=== PATIENT | female | born 1960 | race African-American/Black ===

== ENCOUNTER 2016-10-24 11:43 | Emergency (ER) | payer SELFPAY ==
[2016-10-24 11:58] VITALS: BP 148/78
--- NOTE | 2016-10-24 12:39 | RAD ---
INDICATION: Right hand pain. TECHNIQUE: 4 views of the right hand were obtained. FINDINGS: There is diffuse soft tissue swelling. No significant focal osseous abnormality or fracture is seen. Joint spaces appear maintained. IMPRESSION: DIFFUSE SOFT TISSUE SWELLING NO SIGNIFICANT FOCAL OSSEOUS ABNORMALITY IS SEEN.
--- NOTE | 2016-10-24 13:03 | UC ---
Hand/Wrist HPI - HPI Summary HPI Summary: 5 DAYS OF SEVERE PAIN AND SWELLING RIGHT HAND. NO TRAUMA OR INJURY. NO BREAK IN THE SKIN. NO FEVER. NO NUMBNESS OR TINGLING. - History Of Current Complaint Chief Complaint: UCUpperExtremity Stated Complaint: HAND PAIN Time Seen by Provider: 10/24/16 12:39 Hx Obtained From: Patient, Family/Clay Grinder - Onset/Duration: Gradual Onset, Lasting Days, Still Present Severity Initially: Moderate Severity Currently: Severe Pain Intensity: 10 Pain Scale Used: 0-10 Numeric Character Of Pain: Aching Aggravating Factor(s): Movement Alleviating: Rest Associated Signs And Symptoms: Positive: Swelling Related History: Dominant Hand Right - Allergies/Home Medications Allergies/Adverse Reactions: Allergies Allergy/AdvReac Type Severity Reaction Status Date / Time No Known Allergies Allergy Verified 10/24/16 11:58 Home Medications: Home Medications Chlorthalidone TAB* [Hygroton TAB*] 25 mg PO DAILY 10/24/16 [History Confirmed 10/24/16] Furosemide TAB* [Lasix TAB*] 40 mg PO DAILY 10/24/16 [History Confirmed 10/24/16 ] Insulin GLARGINE(*) [Lantus(*)] 0 units SUBCUT ONCE 10/24/16 [History Confirmed 10/24/16] Insulin LISPRO* [HumaLOG*] 0 units SUBCUT DIRECTED 10/24/16 [History Confirmed 10/24/16] Rosuvastatin Calcium [Crestor] 40 mg PO 10/24/16 [History] Sodium Bicarbonate (Antacid) [Sodium Bicarbonate] 325 mg PO 10/24/16 [History] Warfarin TAB(*) [Coumadin TAB(*)] 5 mg PO DAILY 10/24/16 [History Confirmed 10/02] PMH/Surg Hx/FS Hx/Imm Hx Endocrine History: Diabetes Cardiovascular History: Hypertension Respiratory History: Pulmonary Embolism - ON COUMADIN Other History Of: Anticoagulant Therapy - for Hx PE - Surgical History Surgical History: Yes Surgery Procedure, Year, and Place: foot. leg - Family History Known Family History: Positive: Cardiac Disease, Hypertension, Diabetes Family History: NO FAMILY H/O GOUT OR RA - Social History Alcohol Use: Rare Substance Use Type: None Smoking Status (MU): Former Smoker Review of Systems Skin: Negative Respiratory: Negative Cardiovascular: Negative Gastrointestinal: Negative Musculoskeletal: Arthralgia, Decreased ROM, Edema All Other Systems Reviewed And Are Negative: Yes Physical Exam Triage Information Reviewed: Yes Appearance: Well-Appearing, Well-Nourished, Pain Distress - MODERATE Vital Signs: Initial Vital Signs Temp 98.9 F 10/24/16 11:53 Pulse 77 10/24/16 11:53 Resp 18 10/24/16 11:53 BP 148/78 10/24/16 11:53 Pulse Ox 100 10/24/16 11:53 Vital Signs Reviewed: Yes Eyes: Positive: Conjunctiva Clear ENT: Positive: Hearing grossly normal Neck: Positive: Supple Respiratory: Positive: No respiratory distress, No accessory muscle use Cardiovascular: Positive: Pulses Normal Abdomen Description: Positive: Soft Musculoskeletal: Positive: ROM Limited @ - RIGHT HAND - MCP AND IP JOINTS IN ALL FINGERS, Edema @ - RIGHT HAND, Other: - TTP MCP AND IP JOINTS FINGERS 2-4. TTP MCP 5TH FINGER. THUMB NOT TENDER. WARM TO TOUCH. NO REDNESS Neurological: Positive: Alert Psychological: Positive: Normal Response To Family, Age Appropriate Behavior Skin: Negative: rashes Diagnostics - Radiology RIGHT HAND XRAY Xray Interpretation: Positive (See Comments) - DIFFUSE SOFT TISSUE SWELLING Radiology Interpretation Completed By: Radiologist Hand/Wrist Course/Dx - Differential Dx/Diagnosis Provider Diagnoses: RIGHT HAND ARTHRITIC CONDITION Discharge - Discharge Plan Condition: Stable Disposition: HOME Prescriptions: Acetaminop/Codeine 30 MG TAB* [Tylenol/Codeine 30 MG TAB*] 1 - 2 tab PO Q6H PRN #30 tab MDD 8 PRN Reason: Pain predniSONE TAB* [Deltasone TAB*] 40 mg PO DAILY #10 tab Patient Education Materials: Arthritis (ED) Referrals: Chantale Adan MD [Medical Doctor] - 1 Week Jens Bertrand MD [Medical Doctor] - 1 Week Additional Instructions: NO ACUTE ABNORMALITY ON XRAY TODAY. YOU APPEAR TO HAVE AN ARTHRITIC CONDITION. STEROIDS SHOULD HELP BUT WILL MAKE YOUR SUGARS GO UP AND MAY INTERFERE WITH YOUR COUMADIN. BE SURE TO MONITOR YOUR GLUCOSE AND WATCH YOUR DIET. CHECK YOUR INR AT HOME MORE FREQUENTLY WHILE ON THIS MEDICATION. FOLLOW-UP WITH ORTHO OR RHEUMATOLOGY FOR FURTHER EVALUATION OF YOUR CONDITION WITHIN A WEEK. YE WRAP NEEDED FOR COMPRESSION AND SUPPORT. CALL THE NUMBER BELOW FOR ASSISTANCE IN ESTABLISHING WITH A PCP An additional resource available to assist in finding the appropriate physician for your health care needs is the Physician Referral Center ([facility]). You may contact them by calling [phone].
== END 2016-10-24 13:26 | disposition home or self-care (01) ==
LOC: UCEAST 11:43
DX: M19.041 Primary osteoarthritis, right hand (principal)
CPT/HCPCS: 99202; G0463

== ENCOUNTER 2017-01-13 10:39 | Day surgery (SDC) | payer OTHER ==
[~2017-01-13 10:39] MED LIST: Acetaminophen TAB* 325 MG PO PRN; Buffered Lidocaine 0.9% SYRIN* 5 ML/SYR SYRINGE INTRADERM ONE
[2017-01-13 11:55] VITALS: BP 138/69
[2017-01-13] MEDS ORDERED: Midazolam* 1 MG/ML 5 ML VIAL (5 MG) ONE (12:30)
[2017-01-13] MEDS ORDERED: fentaNYL* 50 MCG/ML 2 ML VIAL (100 MCG VIAL) ONE (12:30)
[2017-01-13] MEDS ORDERED: Neomycin/Polymy/Dex OPHTH.OIN* 3.5 GM ONE (14:19)
[2017-01-13] MEDS ORDERED: Cyclopentolate 1% OPTH.SOL* 2 ML BTL ONE (14:19)
[2017-01-13] MEDS ORDERED: Tetracaine 0.5% OPTH.SOL 4 ML* 1 DROP BTL ONE (14:19)
[2017-01-13] MEDS ORDERED: Lidocaine 1% MPF* 2 ML VIAL ONE (14:19)
[2017-01-13] MEDS ORDERED: Phenylephrine 2.5% OPTH.SOL* 2 ML BTL ONE (14:19)
[2017-01-13] MEDS ORDERED: Tropicamide 1% OPTH.SOL* BTL ONE (14:19)
[2017-01-13] MEDS ORDERED: Ketorolac 0.5% OPHTH (NF) 0.5 % 5 ML BTL ONE (14:19)
--- NOTE | 2017-01-14 05:13 | OP ---
DATE OF OPERATION: 01/13/17 [facility] DATE OF : 58 SURGEON: Adin Lagunas MD TRAFFIC CHIEF: None. ANESTHESIOLOGIST: Flo Whitaker MD ANESTHESIA: Topical with intravenous sedation. PRE-OP DIAGNOSIS: Cataract right eye with vitreous hemorrhage and hyphema. POST-OP DIAGNOSIS: Cataract right eye with vitreous hemorrhage and hyphema. OPERATIVE PROCEDURE: Phacoemulsification and cataract extraction and hyphema evacuation right eye with posterior chamber intraocular lens implant. COMPLICATIONS: None. ESTIMATED BLOOD LOSS: None. DESCRIPTION OF PROCEDURE: The patient was brought to the operating room and received a small amount of intravenous sedation. A drop of Tetracaine was placed in her right eye. The patient was prepped and draped in the usual sterile fashion for ophthalmic surgery and attention was directed to the right eye where a speculum was placed. A paracentesis was created at the 11 o'clock position and 0.1 cc of 1% preservative-free Lidocaine was injected into the anterior chamber followed by DiscoVisc. The eye was digitally stabilized while a 2.75 mm keratome was used to create a triplanar clear corneal incision at the 9 o'clock position. A continuous curvilinear capsulorrhexis was created using a cystotome and Utrata forceps. This was difficult because there was no red reflex. BSS on a cannula was used to hydrodissect the lens from the capsule. This is also difficult without a red reflex due to the vitreous hemorrhage. Phacoemulsification was performed in a [id number] technique to create four fragments, which were removed. Residual cortical material was removed using irrigation and aspiration. During the case anterior chamber blood that was present was readily evacuated during irrigation aspiration procedures. DisCoVisc was used to inflate the capsular bag and a careful inspection was performed to make sure there is no cortical material left as again it was difficult view with no red reflex and an AUOOTO 19.5 diopter lens was inserted into the capsular bag. DisCoVisc was removed using irrigation and aspiration. BSS on a cannula was used to hydrate the corneal stroma and seal the wound. At the end of the case the pupil was round and the lens was centered. The eye pressure appeared normal and the wound was water tight. There was no blood in the anterior chamber all of the vitreous was filled with blood. The speculum was removed and topical Maxitrol ointment was placed on the surface of the eye. The eye was closed, patched and shielded and the patient was sent to the recovery room in stable condition with postoperative instructions and follow-up appointment given. [id number]/CPS #: [id number] MTDD
== END 2017-01-13 14:20 | disposition home or self-care (01) ==
LOC: OREAST 10:39
PROVIDERS: ATTEND Ophthalmology
DX: E11.36 Type 2 diabetes mellitus with diabetic cataract (principal); H25.011 Cortical age-related cataract, right eye; H21.01 Hyphema, right eye; H43.11 Vitreous hemorrhage, right eye; Z79.4 Long term (current) use of insulin; E78.00 Pure hypercholesterolemia, unspecified; Z86.711 Personal history of pulmonary embolism; Z79.01 Long term (current) use of anticoagulants; M06.9 Rheumatoid arthritis, unspecified; E11.22 Type 2 diabetes mellitus with diabetic chronic kidney disease; I12.9 Hypertensive chronic kidney disease with stage 1 through stage 4 chronic kidney disease, or unspecified chronic kidney disease; N18.9 Chronic kidney disease, unspecified; Z87.891 Personal history of nicotine dependence; D68.59 Other primary thrombophilia
CPT/HCPCS: A9270-GY; J2250; J3010

== ENCOUNTER 2017-02-16 07:17 | Emergency (ER) | payer OTHER ==
[2017-02-16 08:43] LABS: EGFR Non-African American 22.5 (>60)
[2017-02-16 09:03] LABS: ABS Basophils 0.1 10^3/ul (0-0.2); ABS Eosinophils 0.3 10^3/ul (0-0.6); ABS Lymphocytes 1.3 10^3/ul (1.0-4.8); ABS Monocytes 0.6 10^3/ul (0-0.8); ABS Neutrophils 6.1 10^3/ul (1.5-7.7); ABS Nucleated RBC 0.01 10^3/ul; Eosinophil % 3.5 % (0-6); Hematocrit 26 % (35-47); Lymphocyte % 15.1 % (25-47); Mean Corpuscular HGB Conc 31 g/dl (31-36); Mean Corpuscular Hemoglobin 22 pg (27-31); Mean Platelet Volume 7 um3 (7.4-10.4); Nucleated Red Blood Cells % 0.1; Platelet Count 418 10^3/ul (150-450); Red Blood Count 3.61 10^6/ul (4.0-5.4); Red Cell Distribution Width 19 % (10.5-15); White Blood Count 8.4 10^3/ul (3.5-10.8)
[2017-02-16 09:10] LABS: Mean Corpuscular Volume 73 fL (80-97)
--- NOTE | 2017-02-16 09:16 | RAD ---
Indication: Pain and edema. Possible great toe ulcer. Comparison: No relevant prior exams available on the [facility] PACS for comparison. Technique: AP, lateral, and oblique views LEFT foot. Report: Loss of the normal longitudinal arch of the foot. Negative for dislocation. No acute fracture evident. Healed fractures at the second and fifth metatarsals. Ostial lysis at the distal proximal phalanx and middle phalanx. Marked osteophytosis, joint space narrowing, subchondral sclerosis, and subchondral cystic change at the first metatarsal phalangeal joint and mild hallux valgus deformity. Less marked degenerative arthropathy throughout the rest of the [id number]. Soft tissue swelling most prominent at the visualized lower leg, ankle, and great toe. No subcutaneous emphysema or foreign body evident. Peripheral vascular calcifications. Skeletal muscle atrophy. IMPRESSION: Soft tissue swelling without visualized subcutaneous emphysema. Ostial lysis at the fifth toe is age indeterminate. No definitive acute radiographic findings of osteomyelitis. If there is persistent clinical concern consider follow-up MRI or in setting of contraindication to MRI 3 phase bone scan.
[2017-02-16 10:13] VITALS: BP 133/67
--- NOTE | 2017-02-16 12:10 | ED ---
Bryant Mc Tecjoon, scribed for Cory Chavez MD on 02/16/17 at 0821 . Lower Extremity - HPI Summary HPI Summary: This patient is a 56 year old female presenting to [facility] accompanied by with a chief complaint of diabetic ulcers on foot since yesterday. Patient has several calluses on her feet with a pronounced one on her left big toe. Patient states she feels no pain, but also has neuropathy. Symptoms aggravated by nothing. Symptoms alleviated by nothing. Patients skin is very dry. Patient has a hx of diabetes. Her last hemoglobin a1c level was 7. - History of Current Complaint Chief Complaint: EDExtremityLower Stated Complaint: BILATERAL FOOT PROBLEMS Time Seen by Provider: 02/16/17 07:37 Hx Obtained From: Patient Onset/Duration: Days - noticed yesterday Pain Intensity: 0 Pain Scale Used: 0-10 Numeric Timing: Constant Associated Signs And Symptoms: Positive: Negative - pain, Other - calluses on feet Aggravating Factor(s): Nothing Alleviating Factor(s): Nothing - Allergies/Home Medications Allergies/Adverse Reactions: Allergies Allergy/AdvReac Type Severity Reaction Status Date / Time No Known Allergies Allergy Verified 01/13/17 11:43 PMH/Surg Hx/FS Hx/Imm Hx Previously Healthy: No Endocrine/Hematology History: Reports: Hx Anticoagulant Therapy - for Hx PE, coumadin , Hx Diabetes - type 2, Hx Anemia Denies: Hx Thyroid Disease Cardiovascular History: Reports: Hx Embolism - Pulmonary Embolism, Hx Hypercholesterolemia, Hx Hypertension - controlled with meds Denies: Hx Coronary Artery Disease Respiratory History: Reports: Hx Pulmonary Embolism - in the past Denies: Hx Asthma GI History: Denies: Hx Ulcer History: Reports: Other Problems/Disorders - Reports kidney problems Denies: Hx Kidney Stones Musculoskeletal History: Reports: Hx Arthritis - possible RA in hands, Hx Rheumatoid Arthritis Sensory History: Reports: Hx Cataracts - right eye, Hx Contacts or Glasses - glasses for reading, Hx Macular Degeneration, Hx Vision Problem - Retinal hemorrhage Denies: Hx Deafness, Hx Hearing Aid Opthamlomology History: Reports: Hx Cataracts - right eye, Hx Contacts or Glasses - glasses for reading, Hx Macular Degeneration, Hx Vision Problem - Retinal hemorrhage - Surgical History Surgery Procedure, Year, and Place: left foot- Surgery for diabetic ulcer. R leg- medical machinery Hx Anesthesia Reactions: No - Immunization History Date of Tetanus Vaccine: UTD Infectious Disease History: No Infectious Disease History: Denies: Hx Hepatitis, Hx Human Immunodeficiency Virus (HIV), Traveled Outside the [place] in Last 30 Days - Family History Known Family History: Positive: Cardiac Disease, Hypertension, Diabetes Family History: NO FAMILY H/O GOUT OR RA - Social History Lives: Alone Alcohol Use: Rare Hx Substance Use: No Substance Use Type: Reports: None Hx Tobacco Use: Yes Smoking Status (MU): Former Smoker Type: Cigarettes Amount Used/How Often: smoked on and off for 15 years less than 1/2ppd Review of Systems Negative: Fever Musculoskeletal: Negative - foot pain Positive: Other - calluses on left foot All Other Systems Reviewed And Are Negative: Yes Physical Exam - Summary Physical Exam Summary: VITAL SIGNS: Reviewed. GENERAL: Patient is a well developed and nourished __(M/F)__ who is lying comfortable in the stretcher. Patient is not in any acute respiratory distress. HEAD AND FACE: Normocephalic EYES: PERRLA, EOMI x 2. EARS: Hearing grossly intact. MOUTH: Oropharynx within normal limits. NECK: Supple, trachea is midline, no adenopathy, no JVD, no carotid bruit. CHEST: Symmetric, no tenderness at palpation LUNGS: Clear to auscultation bilaterally. No wheezing or crackles. CVS: Regular rate and rhythm, S1 and S2 present, no murmurs or gallops appreciated. ABDOMEN: Soft, non-tender. Bowel sounds are normal. No abdominal abnormal pulsations. EXTREMITIES: Full ROM in all major joints, no edema. Small abrasion to left big toe. Decrease in sensation secondary to peripheral neuropathy. NEURO: Alert and oriented x 3. No acute neurological deficits. Speech is normal and follows commands. SKIN: Dry and warm Triage Information Reviewed: Yes Vital Signs On Initial Exam: Initial Vitals Temp Pulse Resp BP Pulse Ox 97.9 F 66 20 151/69 100 02/16/17 07:31 02/16/17 07:31 02/16/17 07:31 02/16/17 07:31 02/16/17 07:31 Vital Signs Reviewed: Yes - Maximino Coma Scale Coma Scale Total: 15 Diagnostics - Vital Signs Vital Signs Temp Pulse Resp BP Pulse Ox 02/16/17 07:31 97.9 F 66 20 151/69 100 - Laboratory Lab Results: Lab Results 02/16/17 02/16/17 02/16/17 Range/Units 08:15 08:15 08:15 WBC 8.4 (3.5-10.8) 10^3/ul RBC 3.61 L (4.0-5.4) 10^6/ul Hgb 8.0 L (12.0-16.0) g/dl Hct 26 L (35-47) % MCV 73 L (80-97) fL MCH 22 L (27-31) pg MCHC 31 (31-36) g/dl RDW 19 H (10.5-15) % Plt Count 418 (150-450) 10^3/ul MPV 7 L (7.4-10.4) um3 Neut % (Auto) 73.0 (38-83) % Lymph % (Auto) 15.1 L (25-47) % [place] % (Auto) 7.6 (1-9) % Eos % (Auto) 3.5 (0-6) % Baso % (Auto) 0.8 (0-2) % Absolute Neuts (auto) 6.1 (1.5-7.7) 10^3/ul Absolute Lymphs (auto) 1.3 (1.0-4.8) 10^3/ul Absolute Monos (auto) 0.6 (0-0.8) 10^3/ul Absolute Eos (auto) 0.3 (0-0.6) 10^3/ul Absolute Basos (auto) 0.1 (0-0.2) 10^3/ul Absolute Nucleated RBC 0.01 10^3/ul Nucleated RBC % 0.1 ESR 120 H (0-30) mm/Hr Sodium 136 (133-145) mmol/L Potassium 5.1 H (3.5-5.0) mmol/L Chloride 106 (101-111) mmol/L Carbon Dioxide 22 (22-32) mmol/L Anion Gap 8 (2-11) mmol/L BUN 38 H (6-24) mg/dL Creatinine 2.24 H (0.51-0.95) mg/dL Est GFR ( Amer) 29.0 (>60) Est GFR (Non-Af Amer) 22.5 (>60) BUN/Creatinine Ratio 17.0 (8-20) Glucose 90 (70-100) mg/dL Lactic Acid 0.8 (0.5-2.0) mmol/L Calcium 9.6 (8.6-10.3) mg/dL Total Bilirubin 0.30 (0.2-1.0) mg/dL AST 17 (13-39) U/L ALT 9 (7-52) U/L Alkaline Phosphatase 163 H (34-104) U/L C-Reactive Protein 48.66 H (< 5.00) mg/L Total Protein 7.7 (6.4-8.9) g/dL Albumin 3.5 (3.2-5.2) g/dL Globulin 4.2 H (2-4) g/dL Albumin/Globulin Ratio 0.8 L (1-3) Result Diagrams: 02/16/17 08:15 02/16/17 08:15 Lab Statement: Any lab studies that have been ordered have been reviewed, and results considered in the medical decision making process. - Radiology XR Foot Xray Interpretation: Positive (See Comments) - IMPRESSION: Soft tissue swelling without visualized subcutaneous emphysema. Ostial lysis at the fifth toe is age indeterminate. No definitive acute radiographic findings of osteomyelitis. If there is persistent clinical concern consider follow-up MRI or in setting of contraindication to MRI 3 phase bone scan. ED physician has reviewed this radiology report. Radiology Interpretation Completed By: Radiologist Lower Extremity Course/Dx - Course Course Of Treatment: This patient is a 56 year old female presenting to [facility] accompanied by with a chief complaint of diabetic ulcers on foot since yesterday. Patient has several calluses on her feet with a pronounced one on her left big toe. Patient states she feels no pain, but also has neuropathy. Symptoms aggravated by nothing. Symptoms alleviated by nothing. Patients skin is very dry. Patient has a hx of diabetes. Her last hemoglobin a1c level was 7. XR Foot reveals, per radiologist, IMPRESSION: Soft tissue swelling without visualized subcutaneous emphysema. Ostial lysis at the fifth toe is age indeterminate. No definitive acute radiographic findings of osteomyelitis. If there is persistent clinical concern consider follow-up MRI or in setting of contraindication to MRI 3 phase bone scan. ED physician has reviewed this radiology report. Bloodwork Obtained and found to be w/o a significant abnormality except for chronic anemia and chronic renal failure. She was placed in keflex and bacitracin as prophylaxis of infection. She was given a referral for a PCP. Patient will be discharged with a diagnosis of left big toe abrasion and diabetic neuropathy. The patient was given a perscription for Keflex. The patient is advised to follow up with PCP and user interface artist in 3 days. The patient is agreeable with this plan. - Diagnoses Differential Diagnosis/HQI/PQRI: Positive: Bursitis, Cellulitis, Gout, Osteomyelitis Provider Diagnoses: Left big toe abrasion, Diabetic neuropathy Discharge - Discharge Plan Condition: Stable Disposition: HOME Prescriptions: Cephalexin CAP* [Keflex CAP*] 500 mg PO QID #40 cap Patient Education Materials: Diabetic Peripheral Neuropathy (ED) Referrals: No Primary Care Phys,NOPCP [Primary Care Provider] - Additional Instructions: The patient is advised to follow up with PCP and user interface artist in 3 days. Take Keflex as directed. The patient is agreeable with this plan. Physician Referral Center at [facility] Kierra Cunningham Physician Air Traffic Systems Technician or [phone] E-mail address: [email or web address] The documentation as recorded by the Bryant churchill Tecjoon accurately reflects the service I personally performed and the decisions made by Scott mcclellan Walter, MD.
== END 2017-02-16 10:12 | disposition home or self-care (01) ==
LOC: ED 07:17
DX: S90.412A Abrasion, left great toe, initial encounter (principal); E11.40 Type 2 diabetes mellitus with diabetic neuropathy, unspecified; Z79.01 Long term (current) use of anticoagulants; X58.XXXA Exposure to other specified factors, initial encounter; Y92.9 Unspecified place or not applicable; Z87.891 Personal history of nicotine dependence
CPT/HCPCS: 36415; 80053; 83605; 85025; 85652; 86140; 99282

== ENCOUNTER 2017-03-27 16:59 | Observation (INO) | payer OTHER ==
[2017-03-27 19:08] LABS: ABS Basophils 0.1 10^3/ul (0-0.2); ABS Eosinophils 0.3 10^3/ul (0-0.6); ABS Lymphocytes 1.3 10^3/ul (1.0-4.8); ABS Monocytes 0.7 10^3/ul (0-0.8); ABS Neutrophils 6.9 10^3/ul (1.5-7.7); ABS Nucleated RBC 0 10^3/ul; Hematocrit 22 % (35-47); Hemoglobin 6.7 g/dl (12.0-16.0); INR 3.81 (0.77-1.02); Lymphocyte % 14.3 % (25-47); Mean Corpuscular HGB Conc 30 g/dl (31-36); Mean Corpuscular Hemoglobin 22 pg (27-31); Mean Corpuscular Volume 74 fL (80-97); Mean Platelet Volume 7 um3 (7.4-10.4); Nucleated Red Blood Cells % 0.1; Platelet Count 340 10^3/ul (150-450); Red Blood Count 2.99 10^6/ul (4.0-5.4); Red Cell Distribution Width 20 % (10.5-15); White Blood Count 9.3 10^3/ul (3.5-10.8)
[2017-03-27 19:20] LABS: EGFR Non-African American 23.7 (>60)
--- NOTE | 2017-03-27 20:43 | ED ---
Israel Mc Jennifer, scribed for Harshad Pratt MD on 03/27/17 at 1824 . Complex/Multi-Sys Presentation - HPI Summary HPI Summary: The patient is a 57 year old female who was sent to the ED by her PCP for low HGB today. She explains that her HGB has been steadily decreasing over the past 3 months. She additionally complains of a little shortness of breath and loss of appetite. The patient denies an upset stomach, dizziness, vomiting, heart burn, belching, burping, bloody stools. - History Of Current Complaint Chief Complaint: EDGeneral Time Seen by Provider: 03/27/17 18:13 Hx Obtained From: Patient Onset/Duration: Still Present Timing: Constant Severity Currently: Mild Severity Initially: Mild Associated Signs And Symptoms: Positive: Other - shortness of breath, loss of appetite. NEGATIVE: upset stomach, dizziness, vomiting, heart burn, belching, burping, bloody stools - Allergies/Home Medications Allergies/Adverse Reactions: Allergies Allergy/AdvReac Type Severity Reaction Status Date / Time No Known Allergies Allergy Verified 01/13/17 11:43 PMH/Surg Hx/FS Hx/Imm Hx Endocrine/Hematology History: Reports: Hx Anticoagulant Therapy - for Hx PE, coumadin , Hx Diabetes - type 2, Hx Anemia Denies: Hx Thyroid Disease Cardiovascular History: Reports: Hx Embolism - Pulmonary Embolism, Hx Hypercholesterolemia, Hx Hypertension - controlled with meds Denies: Hx Coronary Artery Disease Respiratory History: Reports: Hx Pulmonary Embolism - in the past Denies: Hx Asthma GI History: Denies: Hx Ulcer History: Reports: Other Problems/Disorders - Reports kidney problems Denies: Hx Kidney Stones Musculoskeletal History: Reports: Hx Arthritis - possible RA in hands, Hx Rheumatoid Arthritis Sensory History: Reports: Hx Cataracts - right eye, Hx Contacts or Glasses - glasses for reading, Hx Macular Degeneration, Hx Vision Problem - Retinal hemorrhage Denies: Hx Deafness, Hx Hearing Aid Opthamlomology History: Reports: Hx Cataracts - right eye, Hx Contacts or Glasses - glasses for reading, Hx Macular Degeneration, Hx Vision Problem - Retinal hemorrhage EENT History: Denies: Hx Deafness - Surgical History Surgery Procedure, Year, and Place: left foot- Surgery for diabetic ulcer. R leg- medical machinery Hx Anesthesia Reactions: No - Immunization History Date of Tetanus Vaccine: UTD Infectious Disease History: No Infectious Disease History: Denies: Hx Hepatitis, Hx Human Immunodeficiency Virus (HIV), Traveled Outside the US in Last 30 Days - Family History Known Family History: Positive: Cardiac Disease, Hypertension, Diabetes Family History: NO FAMILY H/O GOUT OR RA - Social History Alcohol Use: Rare Hx Substance Use: No Substance Use Type: Reports: None Hx Tobacco Use: Yes Smoking Status (MU): Former Smoker Type: Cigarettes Amount Used/How Often: smoked on and off for 15 years less than 1/2ppd Review of Systems Positive: Other - Low HGB, loss of appetite ENT: Negative - burping, belching Negative: Other - heart burn Positive: Shortness Of Breath Negative: Vomiting, Other - Upset stomach Genitourinary: Negative - bloody stools Neurological: Negative - dizziness All Other Systems Reviewed And Are Negative: Yes Physical Exam - Summary Physical Exam Summary: Appearance: Morbidly obese. Skin: Warm, Dry, No rash. Skin with multiple healed ulcers on feet Eyes: Pail conjuctiva, PERRL, EOMI, sclera anicteric ENT: Normal Neck: Supple, nontender Respiratory: Clear to auscultation Cardiovascular: S1, S2, no murmur, no rub, no gallop Abdomen: Soft, nontender, no organomegaly Bowel sounds: Present Musculoskeletal: Normal, Strength/ROM Intact, no edema, pulses symmetrical Extremities: with what appear to be charcot joints in feet, they are all deformed. Neurological: Normal, A&Ox3, cranial nerves II-XII WNL, follows commands, gait not tested, sensation intact to pin and light touch Psychiatric: affect normal, behavior appropriate, dressed appropriately, judgment intact Triage Information Reviewed: Yes Vital Signs On Initial Exam: Initial Vitals Temp Pulse Resp BP Pulse Ox 98.2 F 88 20 153/102 99 03/27/17 17:00 03/27/17 17:00 03/27/17 17:00 03/27/17 17:00 03/27/17 17:00 Vital Signs Reviewed: Yes Diagnostics - Vital Signs Vital Signs Temp Pulse Resp BP Pulse Ox 03/27/17 17:00 98.2 F 88 20 153/102 99 - Laboratory Result Diagrams: 03/27/17 18:40 03/27/17 18:40 Lab Statement: Any lab studies that have been ordered have been reviewed, and results considered in the medical decision making process. Complex Multi-Symp Course/Dx Assessment/Plan: The patient is a 57 year old female who was sent to the ED by her PCP for low HGB today. Bloodwork was obtained. Stool labs were negative. INR was elevated at 3.81. The patient did not want to stay for a transfusion tonight. The patient is diagnosed with slow GI bleeding, iron deficiency, and anemia. The patient will be admitted to [facility]. - Diagnoses Provider Diagnoses: slow GI bleeding, Iron deficiency, Anemia - Physician Notifications Discussed Care Of Patient With: Roseline Rahman Time Discussed With Above Provider: 20:36 Instructed by Provider To: Admit As Inpatient Discharge - Discharge Plan Condition: Good Disposition: ADMITTED TO [facility] Referrals: Deborah Pastor MD [Primary Care Provider] - Additional Instructions: RETURN TO THE EMERGENCY DEPARTMENT FOR CHANGING OR WORSENING SYMPTOMS. The documentation as recorded by the Israel churchill Jennifer accurately reflects the service I personally performed and the decisions made by me, Harshad Pratt MD.
[2017-03-27] MEDS ORDERED: Dextrose 50% Syringe 50 ML* 25 GM/50 ML SYRINGE IV PUSH PRN (21:34)
[2017-03-27] MEDS: Insulin GLARGINE(*) 1 UNITS UNIT SUBCUT SCH (22:39)
[2017-03-27] MEDS: Omeprazole CAP* 20 MG PO SCH (22:40)
[2017-03-28 07:06] LABS: INR 3.56 (0.77-1.02)
[2017-03-28 07:09] LABS: Hematocrit 21 % (35-47); Hemoglobin 6.7 g/dl (12.0-16.0); Mean Corpuscular HGB Conc 32 g/dl (31-36); Mean Corpuscular Hemoglobin 24 pg (27-31); Mean Corpuscular Volume 75 fL (80-97); Mean Platelet Volume 7 um3 (7.4-10.4); Platelet Count 366 10^3/ul (150-450); Red Blood Count 2.86 10^6/ul (4.0-5.4); Red Cell Distribution Width 20 % (10.5-15); White Blood Count 8.9 10^3/ul (3.5-10.8)
[2017-03-28] MEDS ORDERED: Phytonadione Oral Solution* 5 MG/25 ML UDC PO ONE (07:27)
--- NOTE | 2017-03-28 07:31 | HP ---
CC: Dr. Pastor * HISTORY AND PHYSICAL: DATE OF ADMISSION: 03/27/17 PRIMARY CARE PROVIDER: Dr. Pastor CHIEF COMPLAINT: Low H and H. HISTORY OF PRESENT ILLNESS: Ms. Jon is a 57-year-old female who has a history of stage 3 chronic kidney disease, type 2 diabetes, hyperlipidemia, history of hypercoagulable state, and recurrent PEs, on Coumadin therapy, and hypertension, who presents to the emergency room with complaints of reduced H and H. The patient states that she met with Dr. Pastor today for preop evaluation prior to eye surgery. In reviewing the records, Dr. Pastor recognized that the patient's H and H had been falling. Blood work was obtained on the day of admission and revealed her hemoglobin to be only around 6.5. The patient was referred to the emergency room for evaluation. The patient states that she actually feels quite fine. She does note that she has had some intermittent nosebleeds recently. She states that her INR was elevated recently. She was informed that the INR could be up due to change in diet as the patient has been stressed, as her is hospitalized and is very ill and contemplating hospice sign on. The patient denies any black stool. She denies any bright red blood per rectum. She denies any lightheadedness, chest pain or shortness of breath; however, does note that her breathing feels slightly different if she is rushing around. She denies any abdominal pain, nausea, or vomiting. The patient states chronically she is anemic. She states that she does not recall the last time that her hemoglobin was greater than 10. PAST MEDICAL HISTORY: 1. Type 2 diabetes. 2. Hyperlipidemia. 3. OA. 4. History of hypercoagulable state (this is reported by her primary care provider) with recurrent pulmonary emboli. 5. Hypertension. 6. Chronic kidney disease - stage 3. 7. Chronic anemia. PAST SURGICAL HISTORY: 1. Right cataract extraction. 2. Right ankle surgery. 3. Left foot surgery for diabetic ulcer. MEDICATIONS: 1. Labetalol 200 mg p.o. b.i.d. 2. Levemir 20 units subcutaneous q.h.s. 3. Ferrous gluconate 325 mg p.o. t.i.d. 4. Vitamin D 2000 units p.o. daily. 5. Chlorthalidone 50 mg p.o. daily. 6. Lasix 20 mg p.o. daily. 7. Lispro via sliding scale subcutaneous a.c. 8. Sodium bicarbonate 325 mg p.o. b.i.d. 9. Crestor 20 mg p.o. daily. 10. Coumadin 7.5 mg p.o. daily. 11. Trulicity 0.75 mg subcutaneous q. Thursday. ALLERGIES: No known drug allergies. FAMILY HISTORY: Mom at the age of 65. She had a history of coronary disease. Dad is from cancer, though the patient states that she did not know him or his health. SOCIAL HISTORY: The patient is a nonsmoker. She drinks alcohol on occasions. 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 She is . She has no children. She indicates that her nephew, Flakito Jon, would be her surrogate decision maker. REVIEW OF SYSTEMS: A complete 11-system review of systems was obtained. Pertinent positives and negatives are as per HPI. In addition, the patient states her appetite has been poor recently due to the stress of her being severely ill. She does also admit to chronic right lower extremity edema. Otherwise the review of systems is negative. PHYSICAL EXAMINATION GENERAL: The patient is a well-developed, middle-aged obese female, sitting on the edge of the bed, in no acute distress. VITAL SIGNS: Blood pressure 124/51, pulse 74, respirations 19, temp 98.2. HEENT: Pupils are equal and round. Extraocular muscles are intact. Oropharynx is clear. Oral mucosa is moist. The patient wears dentures. There is no submandibular, cervical, or supraclavicular adenopathy. Thyroid is not enlarged. No thyroid nodules noted. PULMONARY: Lungs are clear to auscultation bilaterally. CARDIAC: Normal S1, S2. Regular rate and rhythm. Three are no murmurs. There is 1 to 2+ right lower extremity pitting edema. ABDOMEN: Bowel sounds are present. Abdomen is obese, soft, nontender, and nondistended. MUSCULOSKELETAL: There is no cyanosis or clubbing of the digits. There is full active range of motion of all 4 extremities. SKIN: Warm and dry. There are no rashes. NEUROLOGIC: Cranial nerves II through XII are grossly intact. Sensation is intact to light touch throughout. Strength is 5/5 and symmetric in both upper and lower extremities bilaterally. PSYCH: The patient is awake, alert, and oriented x3. Affect appears appropriate. DIAGNOSTIC STUDIES/LAB DATA: WBC 9.3, hemoglobin 6.7, hematocrit 22, MCV 74, RDW 20, platelets 340. INR 3.81. Sodium 138, potassium 4.7, chloride 107, CO2 of 24, BUN 43, creatinine 2.14. Glucose 150, calcium 9.1, iron 29, TIBC 391, percent iron saturation 7, ferritin 33.2. Bilirubin 0.3, AST 13, ALT 8, alk phos 112. Albumin 3.5. ASSESSMENT AND PLAN: Ms. Jon is a 57-year-old female with a history of stage II chronic kidney disease, chronic anemia, type 2 diabetes, hyperlipidemia , and history of recurrent pulmonary embolism, on Coumadin, who presents to the emergency room with a reduced hemoglobin and hematocrit. 1. Acute on chronic anemia. The patient states that her baseline hemoglobin and hematocrit has not been over 10 for quite some time. She denies any significant bleeding within the stool; however, she does note that she has had some nosebleeds recently. The patient also has had an elevated INR. At this point, the patient will be admitted and transfused 2 units of packed red blood cells. The patient will also be started on omeprazole 20 mg p.o. twice daily for possible gastritis as the cause of her reduced hemoglobin and hematocrit. The patient stool guaiac, however, is negative. She may intermittently be bleeding. GI consultation is warranted; however, GI is not on-call this evening. An attempt should be made tomorrow to contact the on-call assistant manager retail. If the patient is stable, however, an outpatient evaluation with EGD and possible colonoscopy could be considered. The patient does states that she believes she had a colonoscopy approximately 2 years ago which was performed in [place]. However, she does not recall the name of the hospital or the clinic that it was performed at. She thinks there may have been some sort of lesions that was cauterized at that time. Follow up labs will be obtained tomorrow morning. Folate and B12 levels will also be obtained given the elevated RDW. She will continue on iron supplementation 3 times daily. 2. Type 2 diabetes. The patient will be maintained on her usual dose of long- acting insulin, which will be Lantus in the hospital replacing her Levemir that she takes at home. 3. Hyperlipidemia. We will continue statin. 4. History of deep venous thrombosis and pulmonary embolism. At this point, the patient's INR is supratherapeutic. Given her reported hypercoagulable state , I am hesitant to reverse her INR especially as there are no obvious signs that she is bleeding at this point. Her Coumadin will be held this evening and a followup INR will be obtained tomorrow. 5. Hypertension. The patient's blood pressure is under good control. She will be maintained on her usual home medication regimen. 6. Stage 3 chronic kidney disease. The patient's creatinine is at baseline. We will continue to monitor this. 7. DVT prophylaxis. According to the Adult Thrombosis Prophylaxis Risk Factor Assessment Guide, the patient has a total risk factor score of 6, making her high risk. Her INR is already supratherapeutic and this will act as DVT prophylaxis. 8. Code status is full. TIME SPENT: Sixty-five minutes were spent admitting this patient. [id number]/[facility] #: [id number] KATELYN
[2017-03-28] MEDS: Cholecalciferol TAB* 1000 UNITS PO SCH (08:10)
[2017-03-28] MEDS: Omeprazole CAP* 20 MG PO SCH ×2 (08:10→20:45)
[2017-03-28] MEDS: Atorvastatin* 40 MG TAB PO SCH (08:11)
[2017-03-28] MEDS: Ferrous Gluconate TAB* 324 MG TAB PO SCH ×3 (08:11→20:44)
[2017-03-28] MEDS: Sodium Bicarbonate (ANTACID)* 650 MG TAB PO SCH ×2 (08:11→20:45)
[2017-03-28] MEDS: Furosemide TAB* 40 MG PO SCH (08:11)
[2017-03-28] MEDS: Labetalol TAB* 200 MG PO SCH ×2 (08:13→20:44)
[2017-03-28] MEDS: Insulin LISPRO* 1 UNITS UNIT SUBCUT SCH ×3 (08:15→17:21)
--- NOTE | 2017-03-28 17:58 | PN ---
Subjective Date of Service: 03/28/17 Interval History: Patient seen and examined. Feeling better after 2 units PRBCs, still with fatigue however and had some dyspnea with ambulation. Denies chest pain, no n/v , no fevers or chills. Objective Active Medications: Atorvastatin Calcium (Lipitor*) 40 mg PO DAILY [facility] Last Admin: 03/28/17 08:11 Dose: 40 mg Cholecalciferol (Vitamin D Tab*) 2,000 units PO DAILY [facility] Last Admin: 03/28/17 08:10 Dose: 2,000 units Dextrose (D50w Syringe 50 Ml*) 12.5 gm IV PUSH .FOR FS < 60 - SS PRN PRN Reason: FS < 60 Ferrous Gluconate (Fergon Tab*) 325 mg PO TID [facility] Last Admin: 03/28/17 13:41 Dose: 324 mg Furosemide (Lasix Tab*) 20 mg PO QAM [facility] Last Admin: 03/28/17 08:11 Dose: 20 mg Insulin Glargine (Lantus(*)) 20 units SUBCUT BEDTIME [facility] Last Admin: 03/27/17 22:39 Dose: 20 units Insulin Human Lispro (Humalog*) 0 units SUBCUT AC [facility] PRN Reason: Protocol Last Admin: 03/28/17 17:21 Dose: 2 units Labetalol HCl (Trandate Tab*) 200 mg PO BID [facility] Last Admin: 03/28/17 08:13 Dose: 200 mg Omeprazole (Prilosec Cap*) 20 mg PO BID [facility] Last Admin: 03/28/17 08:10 Dose: 20 mg Sodium Bicarbonate (Sodium Bicarbonate (Antacid)*) 325 mg PO BID [facility] Last Admin: 03/28/17 08:11 Dose: 325 mg Vital Signs - 8 hr 03/28/17 03/28/17 12:05 15:28 Temperature 98.2 F 98.4 F Pulse Rate 64 65 Respiratory 16 16 Rate Blood Pressure 142/66 138/61 (mmHg) O2 Sat by Pulse 96 100 Oximetry Oxygen Devices in Use Now: None Appearance: Alert, NAD Eyes: No Scleral Icterus, PERRLA Ears/Nose/Mouth/Throat: NL Teeth, Lips, Gums Neck: Trachea Midline Respiratory: Symmetrical Chest Expansion and Respiratory Effort, Clear to Auscultation Cardiovascular: NL Sounds; No Murmurs; No JVD, RRR Extremities: No Edema Skin: No Rash or Ulcers Neurological: Alert and Oriented x 3 Nutrition: Taking PO's Result Diagrams: 03/28/17 06:45 03/28/17 06:45 Additional Lab and Data: Abnormal Lab Results 03/27/17 03/27/17 03/27/17 18:40 18:40 18:40 WBC 9.3 RBC 2.99 L Hgb 6.7 L Hct 22 L MCV 74 L MCH 22 L MCHC 30 L RDW 20 H Plt Count 340 MPV 7 L Neut % (Auto) 74.4 Lymph % (Auto) 14.3 L [place] % (Auto) 7.4 Eos % (Auto) 3.0 Baso % (Auto) 0.9 Absolute Neuts (auto) 6.9 Absolute Lymphs (auto) 1.3 Absolute Monos (auto) 0.7 Absolute Eos (auto) 0.3 Absolute Basos (auto) 0.1 Absolute Nucleated RBC 0 Nucleated RBC % 0.1 INR (Anticoag Therapy) 3.81 H Sodium 138 Potassium 4.7 Chloride 107 Carbon Dioxide 24 Anion Gap 7 BUN 43 H Creatinine 2.14 H Est GFR ( Amer) 30.4 Est GFR (Non-Af Amer) 23.7 BUN/Creatinine Ratio 20.1 H Glucose 150 H POC Glucose (mg/dL) Calcium 9.1 Iron 29 L TIBC 391 % Saturation 7 L Unsat Iron Binding 362 Ferritin 33.2 Total Bilirubin 0.30 AST 13 ALT 8 Alkaline Phosphatase 112 H Total Protein 7.0 Albumin 3.5 Globulin 3.5 Albumin/Globulin Ratio 1.0 Vitamin B12 442 Folate > 20.00 Blood Type Antibody Screen Crossmatch 03/27/17 03/27/17 03/28/17 18:40 18:43 06:45 WBC 8.9 RBC 2.86 L Hgb 6.7 L Hct 21 L MCV 75 L MCH 24 L MCHC 32 RDW 20 H Plt Count 366 MPV 7 L Neut % (Auto) Lymph % (Auto) [place] % (Auto) Eos % (Auto) Baso % (Auto) Absolute Neuts (auto) Absolute Lymphs (auto) Absolute Monos (auto) Absolute Eos (auto) Absolute Basos (auto) Absolute Nucleated RBC Nucleated RBC % INR (Anticoag Therapy) Sodium Potassium Chloride Carbon Dioxide Anion Gap BUN Creatinine Est GFR ( Amer) Est GFR (Non-Af Amer) BUN/Creatinine Ratio Glucose POC Glucose (mg/dL) 179 H Calcium Iron TIBC % Saturation Unsat Iron Binding Ferritin Total Bilirubin AST ALT Alkaline Phosphatase Total Protein Albumin Globulin Albumin/Globulin Ratio Vitamin B12 Folate Blood Type B Positive Antibody Screen Negative Crossmatch See Detail 03/28/17 03/28/17 03/28/17 06:45 06:45 07:53 WBC RBC Hgb Hct MCV MCH MCHC RDW Plt Count MPV Neut % (Auto) Lymph % (Auto) [place] % (Auto) Eos % (Auto) Baso % (Auto) Absolute Neuts (auto) Absolute Lymphs (auto) Absolute Monos (auto) Absolute Eos (auto) Absolute Basos (auto) Absolute Nucleated RBC Nucleated RBC % INR (Anticoag Therapy) 3.56 H Sodium 139 Potassium 4.5 Chloride 110 Carbon Dioxide 22 Anion Gap 7 BUN 43 H Creatinine 2.19 H Est GFR ( Amer) 29.6 Est GFR (Non-Af Amer) 23.0 BUN/Creatinine Ratio 19.6 Glucose 86 POC Glucose (mg/dL) 105 H Calcium 9.2 Iron TIBC % Saturation Unsat Iron Binding Ferritin Total Bilirubin AST ALT Alkaline Phosphatase Total Protein Albumin Globulin Albumin/Globulin Ratio Vitamin B12 Folate Blood Type Antibody Screen Crossmatch 03/28/17 03/28/17 11:30 16:29 WBC RBC Hgb Hct MCV MCH MCHC RDW Plt Count MPV Neut % (Auto) Lymph % (Auto) Columbia % (Auto) Eos % (Auto) Baso % (Auto) Absolute Neuts (auto) Absolute Lymphs (auto) Absolute Monos (auto) Absolute Eos (auto) Absolute Basos (auto) Absolute Nucleated RBC Nucleated RBC % INR (Anticoag Therapy) Sodium Potassium Chloride Carbon Dioxide Anion Gap BUN Creatinine Est GFR ( Amer) Est GFR (Non-Af Amer) BUN/Creatinine Ratio Glucose POC Glucose (mg/dL) 131 H 150 H Calcium Iron TIBC % Saturation Unsat Iron Binding Ferritin Total Bilirubin AST ALT Alkaline Phosphatase Total Protein Albumin Globulin Albumin/Globulin Ratio Vitamin B12 Folate Blood Type Antibody Screen Crossmatch Assess/Plan/Problems-Billing Assessment: - Patient Problems (1) Symptomatic anemia Code(s): D64.9 - ANEMIA, UNSPECIFIED SNOMED Code(s): 471285078 Comment: - Acute on chronic 2/2 renal disease and DM - s/p 2 units PRBCs today, last HgB 6.7 - Heme negative stool - Recheck H&H in am, still fatigued and mildly SOB, if stable may be DC to home (2) Supratherapeutic INR Code(s): R79.1 - ABNORMAL COAGULATION PROFILE SNOMED Code(s): 041414051 Comment: - Hold coumadin - One dose vit K 2.5 today - Recheck INR in AM (3) Diabetes mellitus Code(s): E11.9 - TYPE 2 DIABETES MELLITUS WITHOUT COMPLICATIONS SNOMED Code(s) : 02300417 Comment: - Lispro SS with sugars AC and HS - Consistent carb diet (4) Hypertension Code(s): I10 - ESSENTIAL (PRIMARY) HYPERTENSION SNOMED Code(s): 15286286 Comment: - Continue labetelol and lasix, stable (5) CKD (chronic kidney disease) Code(s): N18.9 - CHRONIC KIDNEY DISEASE, UNSPECIFIED SNOMED Code(s): 107556671 Comment: - Creatinine slightly above baseline - Outpatient f/u (6) Hypercoagulable state Code(s): D68.59 - OTHER PRIMARY THROMBOPHILIA SNOMED Code(s): 62130884 Comment: - Unclear diagnosis - On coumadin which was supratherapeutic but not >4 - Coumadin held today, recheck INR in am and restart coumadin at DC if appropriate Status and Disposition: Remain inpatient until tomorrow, will DC in AM if H&H stable.
[2017-03-28] MEDS: Insulin GLARGINE(*) 1 UNITS UNIT SUBCUT SCH (20:45)
[2017-03-29 06:28] LABS: INR 2.29 (0.77-1.02)
[2017-03-29 06:29] LABS: Hematocrit 26 % (35-47); Hemoglobin 8.2 g/dl (12.0-16.0)
[2017-03-29 07:45] VITALS: BP 157/64
[2017-03-29] MEDS: Omeprazole CAP* 20 MG PO SCH (08:32)
[2017-03-29] MEDS: Cholecalciferol TAB* 1000 UNITS PO SCH (08:32)
[2017-03-29] MEDS: Labetalol TAB* 200 MG PO SCH (08:32)
[2017-03-29] MEDS: Ferrous Gluconate TAB* 324 MG TAB PO SCH (08:32)
[2017-03-29] MEDS: Atorvastatin* 40 MG TAB PO SCH (08:32)
[2017-03-29] MEDS: Sodium Bicarbonate (ANTACID)* 650 MG TAB PO SCH (08:33)
[2017-03-29] MEDS: Furosemide TAB* 40 MG PO SCH (08:33)
[2017-03-29] MEDS: Insulin LISPRO* 1 UNITS UNIT SUBCUT SCH (08:50)
--- NOTE | 2017-03-29 22:08 | DS ---
CC: Dr. Pastor * DISCHARGE SUMMARY: DATE OF ADMISSION: 03/27/17 DATE OF DISCHARGE: 03/29/17 PRIMARY CARE PROVIDER: Dr. Pastor. ATTENDING PHYSICIAN: Mayelin Andersen DO* (DICTATED BY JUAN PABLO DELGADO NP ) HOSPITAL COURSE: This is a pleasant female who presented to the emergency department from her primary care's office on 03/27/17. She was in for preoperative evaluation for an eye surgery; however, it was noted that her hemoglobin and hematocrit had been on a slow steady decline. The patient does have a history of chronic kidney disease, type 2 diabetes, hyperlipidemia, and hypercoagulable state with recurrent PEs and is on Coumadin therapy. She was getting some lightheadedness and mild shortness of breath. She was referred to the emergency department for evaluation of her abnormal labs. The patient was admitted for observation status for her dropping hemoglobin. She was Hemoccult negative, so she did not have any GI bleeding. I was thinking that her anemia is chronic secondary to chronic disease and also she did have a supratherapeutic INR secondary to her Coumadin use that was just under 4. The patient was admitted for 2 units of blood transfusion and for her symptomatic anemia. Again, her past medical history is significant for type 2 diabetes, hyperlipidemia, osteoarthritis, hypercoagulable state; however, I do not have an exact diagnosis. She did have recurrent pulmonary emboli, hypertension, stage 3 kidney disease, and chronic anemia. The patient's labs were drawn. Her hemoglobin today is 8.2. Her INR is 2.29 after receiving 1 dose of vitamin K 2.5 mg. She states she is feeling better and was stable for home. MEDICATIONS AT THE TIME OF DISCHARGE: Include: 1. Labetalol 200 mg 2 times a day. 2. Levemir 20 units q.h.s. 3. Ferrous gluconate 324 mg 3 times a day. 4. Vitamin D 2000 units daily. 5. Chlorthalidone 50 mg daily. 6. Lasix 20 mg daily. 7. Lispro sliding scale. 8. Sodium bicarb 325 mg 2 times a day. 9. Crestor 20 mg daily. 10. Coumadin 7.5 mg daily. 11. Trulicity 0.75 mg weekly on Fridays. PHYSICAL EXAMINATION: The patient is awake and alert, no acute distress. Vital signs today are blood pressure 157/64, heart rate 64, temperature 97.7, respiratory rate 16, satting at 98% on room air. HEENT: The patient is atraumatic, normocephalic. PERRLA with nonicteric sclerae. Neck is supple, nontender. No JVD noted. No thyromegaly appreciated. No carotid bruits auscultated. Cardiovascular: S1, S2 are present. Rate and rhythm are regular. No murmurs, gallops, or rubs noted. Lungs are clear bilaterally to auscultation with no wheezing, rhonchi, or rales. Abdomen is soft, nontender, nondistended. Positive bowel sounds in all 4 quadrants. is deferred. Musculoskeletal: There is no clubbing, no cyanosis. She has some bilateral lower extremity edema at baseline, +2. She has a steady gait. She has gross motor and sensation intact. Neurologic: She is grossly intact with no focal deficits. Psychiatric: She is cooperative and appropriate. LABORATORY DATA: Again, laboratories today; hemoglobin of 8.2, hematocrit 26. INR today is 2.29, down from 3.81. Glucose has been running between 105 and 175. DISCHARGE DIAGNOSES: 1. Acute on chronic symptomatic anemia. 2. Diabetes mellitus. 3. Hypertension. 4. Supratherapeutic INR. 5. History of coagulation disorder and multiple pulmonary emboli. 6. Chronic kidney disease, stage 3. The patient was discharged to home in stable condition. All questions were answered. The patient noted her understanding of her followup. She should see her primary care doctor within the next week and readdress her need for medical clearance for her planned eye surgery. The patient states her understanding of her followup and need to receive that clearance before she proceeds with any further procedures. JUAN PABLO DELGADO, NADYA [id number]/[facility] #: [id number] KATELYN
== END 2017-03-29 11:12 | disposition home or self-care (01) ==
LOC: ED 16:59 → MEDTELE 21:15
PROVIDERS: ADMIT Hospitalist; ATTEND Internal Medicine
DX: D64.9 Anemia, unspecified (principal); R79.1 Abnormal coagulation profile; E11.9 Type 2 diabetes mellitus without complications; I10 Essential (primary) hypertension; N18.9 Chronic kidney disease, unspecified; D68.59 Other primary thrombophilia; Z79.01 Long term (current) use of anticoagulants
CPT/HCPCS: 36415; 80048; 80053; 82272; 82607; 82728; 82746; 83540; 83550; 85014; 85018; 85025; 85027; 85610; 86850; 86900; 86901; 86922; 99284; A9270-GY; G0378; P9040

== ENCOUNTER 2017-11-02 14:19 | Emergency (ER) | payer OTHER ==
--- NOTE | 2017-11-02 14:51 | ED ---
Lower Extremity - HPI Summary HPI Summary: 57-year-old female presents with bilateral ankle pain for the past 2 days. She states that she is going down some stairs and twisted both ankles. She denies any knee pain. She denies any other injury. No head injury or loss consciousness. States she has normal decreased sensation due to diabetes has charcot foot but now she is having an aching pain in both ankles. She states the right is worse left. The left is unchanged edema goyal but the left has more edema. she's been using her braces she has for her charcot foot. the fall was a mechanical fall. - History of Current Complaint Chief Complaint: EDExtremityLower Stated Complaint: ANKLE PAIN Time Seen by Provider: 11/02/17 14:37 Pain Intensity: 6 - Allergies/Home Medications Allergies/Adverse Reactions: Allergies Allergy/AdvReac Type Severity Reaction Status Date / Time No Known Allergies Allergy Verified 11/02/17 14:24 PMH/Surg Hx/FS Hx/Imm Hx Endocrine/Hematology History: Reports: Hx Anticoagulant Therapy - for Hx PE, coumadin , Hx Diabetes - type 2, Hx Anemia Denies: Hx Thyroid Disease Cardiovascular History: Reports: Hx Embolism - Pulmonary Embolism, Hx Hypercholesterolemia, Hx Hypertension - controlled with meds Denies: Hx Coronary Artery Disease Respiratory History: Reports: Hx Pulmonary Embolism - in the past Denies: Hx Asthma GI History: Denies: Hx Ulcer History: Reports: Other Problems/Disorders - Reports kidney problems Denies: Hx Kidney Stones Musculoskeletal History: Reports: Hx Arthritis - possible RA in hands, Hx Rheumatoid Arthritis Sensory History: Reports: Hx Cataracts - right eye, Hx Contacts or Glasses - glasses for reading, Hx Macular Degeneration, Hx Vision Problem - Retinal hemorrhage Denies: Hx Deafness, Hx Hearing Aid Opthamlomology History: Reports: Hx Cataracts - right eye, Hx Contacts or Glasses - glasses for reading, Hx Macular Degeneration, Hx Vision Problem - Retinal hemorrhage - Surgical History Surgery Procedure, Year, and Place: left foot- Surgery for diabetic ulcer. R leg- medical machinery Hx Anesthesia Reactions: No - Immunization History Date of Tetanus Vaccine: UTD Infectious Disease History: No Infectious Disease History: Denies: Hx Hepatitis, Hx Human Immunodeficiency Virus (HIV), Traveled Outside the [place] in Last 30 Days - Family History Known Family History: Positive: Cardiac Disease, Hypertension, Diabetes Family History: NO FAMILY H/O GOUT OR RA - Social History Alcohol Use: Occasionally Hx Substance Use: No Substance Use Type: Reports: None Hx Tobacco Use: Yes Smoking Status (MU): Former Smoker Type: Cigarettes Amount Used/How Often: smoked on and off for 15 years less than 1/2ppd Review of Systems Negative: Fever Negative: Chest Pain Negative: Shortness Of Breath Positive: Myalgia - bilateral ankle pain All Other Systems Reviewed And Are Negative: Yes Physical Exam Triage Information Reviewed: Yes Vital Signs On Initial Exam: Initial Vitals Temp Pulse Resp BP Pulse Ox 98.2 F 79 19 171/71 100 11/02/17 14:21 11/02/17 14:21 11/02/17 14:21 11/02/17 14:21 11/02/17 14:21 Vital Signs Reviewed: Yes Appearance: Positive: Well-Appearing Skin: Positive: Warm, Dry Head/Face: Positive: Normal Head/Face Inspection Eyes: Positive: Normal, Conjunctiva Clear ENT: Positive: Pharynx normal Respiratory/Lung Sounds: Positive: Clear to Auscultation, Breath Sounds Present Cardiovascular: Positive: Normal, RRR Musculoskeletal: Positive: Strength/ROM Intact - bilteral feet, Edema Left, Edema Right, Other - decreased sensation at baseline, good pulses, capillary refill<2secs, cystic area on dorsum of right wrist Neurological: Positive: Normal Psychiatric: Positive: Normal Diagnostics - Vital Signs Vital Signs Temp Pulse Resp BP Pulse Ox 11/02/17 14:21 98.2 F 79 19 171/71 100 - Laboratory Lab Statement: Any lab studies that have been ordered have been reviewed, and results considered in the medical decision making process. Lower Extremity Course/Dx - Course Course Of Treatment: 57-year-old female presents with bilateral ankle pain for the past 2 days. She states that she is going down some stairs and twisted both ankles. She denies any knee pain. She denies any other injury. No head injury or loss consciousness. States she has normal decreased sensation due to diabetes has charcot foot but now she is having an aching pain in both ankles. She states the right is worse left. The left is unchanged edema goyal but the left has more edema. she's been using her braces she has for her charcot foot. the fall was a mechanical fall. on exam has edema noted to both ankles, decreased sensation at baseline, good pulses. xray shows no fx. patient also complaining of painful area on top of right wrist. area consistent with ganglion cyst. patient will follow up with ortho about such. gave cam boot. patient understand and agrees with plan. - Diagnoses Differential Diagnosis/HQI/PQRI: Positive: Fracture (Closed), Sprain, Strain Provider Diagnoses: Bilateral ankle pain, Ganglion cyst Discharge - Sign-Out/Discharge Documenting (check all that apply): Patient Departure - Discharge Plan Condition: Good Disposition: HOME Patient Education Materials: Ankle Sprain (ED) Referrals: Deborah Pastor MD [Primary Care Provider] - Thanh Wood MD [Medical Doctor] - Additional Instructions: Stay off ankle as much as possible Ice, elevate, use cam boot on area tyenlol every 6 hours for pain Follow up with ortho if no improvement Return to ED if develop or any new or worsening symptoms - Billing Disposition and Condition Condition: GOOD Disposition: Home
--- NOTE | 2017-11-02 15:45 | RAD ---
Indication: Bilateral ankle pain following twisting injuries. History of rheumatoid arthritis and Charcot arthropathy. Comparison: August 10, 2017 CT RIGHT ankle. June 23, 2017 RIGHT ankle radiographs. February 16, 2017 LEFT foot radiographs. Technique: AP, mortise, and lateral views of the bilateral ankles. Report: RIGHT ankle: Distally locked IM christa at the tibia. Healed distal tibia diaphysis fracture partially visualized. Gross complete collapse/resorption of the talus without change. Severe pes planus deformity. Bone density appears decreased throughout. No acute fracture evident. Small plantar fascia origin bone spur. Diffuse soft tissue swelling and vascular calcifications. No subcutaneous emphysema evident. LEFT ankle: Severe pes planus deformity. Congruent ankle mortise. Bone density appears decreased throughout. Negative for fracture. Mild osteophytosis and subchondral sclerosis at the navicula cuneiform articulations. Small plantar fascia origin bone spur. Bone density appears decreased throughout. Partial cephalocaudal collapse of the talus without significant change. No acute fracture evident. IMPRESSION: #. The constellation of findings is consistent with advanced RIGHT greater than LEFT Charcot arthropathy. #. Bone density appears decreased throughout. No acute fracture evident.
[2017-11-02 17:50] VITALS: BP 155/76
== END 2017-11-02 17:49 | disposition home or self-care (01) ==
LOC: ED 14:19
DX: M25.572 Pain in left ankle and joints of left foot (principal); M25.571 Pain in right ankle and joints of right foot; M67.40 Ganglion, unspecified site; E13.610 Other specified diabetes mellitus with diabetic neuropathic arthropathy; Y92.9 Unspecified place or not applicable; Z86.711 Personal history of pulmonary embolism; Z79.01 Long term (current) use of anticoagulants; E78.00 Pure hypercholesterolemia, unspecified; I10 Essential (primary) hypertension; Z87.891 Personal history of nicotine dependence; X50.1XXA Overexertion from prolonged static or awkward postures, initial encounter
CPT/HCPCS: 99282

== ENCOUNTER 2017-11-03 17:15 | Inpatient (IN) | payer OTHER ==
[2017-11-03] MEDS ORDERED: NS 0.9% 1000 ML* 1,000 ML IV ONE ×2 (17:53→20:19)
--- NOTE | 2017-11-03 17:56 | ED ---
Shortness of Breath - HPI Summary HPI Summary: 57-year-old female presents to dizziness and fatigue for the past couple days. She was sent she was seen here yesterday for her ankles but did not start to experience shortness of breath and chest pain with movement until today. States this feels similar to when she was anemic before and needed a blood transfusion. She denies any blood in her stool. She admits to nausea but no vomiting. No dark tarry stool. No abdominal pain. She states that the chest pain feels like a tightness. She denies any cardiac history. She does have a history of PEs but states this feels different. She has here INR checked today and it was 1.9. She denies any increased pain or swelling in her calf muscles. She does have family history of cardiac disease. She is a diabetic. She states this feels very weak. She states she thought weakness was just do to lack of sleep but states now it feels different. She denies any cough or fever or recent illness. She denies any history of asthma or COPD. She was a smoker. - History of Current Complaint Chief Complaint: EDShortnessOfBreath Time Seen by Provider: 11/03/17 17:31 - Allergy/Home Medications Allergies/Adverse Reactions: Allergies Allergy/AdvReac Type Severity Reaction Status Date / Time No Known Allergies Allergy Verified 11/03/17 17:24 PMH/Surg Hx/FS Hx/Imm Hx Endocrine/Hematology History: Reports: Hx Anticoagulant Therapy - for Hx PE, coumadin , Hx Diabetes - type 2, Hx Anemia Denies: Hx Thyroid Disease Cardiovascular History: Reports: Hx Embolism - Pulmonary Embolism, Hx Hypercholesterolemia, Hx Hypertension - controlled with meds Denies: Hx Coronary Artery Disease Respiratory History: Reports: Hx Pulmonary Embolism - in the past Denies: Hx Asthma GI History: Denies: Hx Ulcer History: Reports: Other Problems/Disorders - Reports kidney problems Denies: Hx Kidney Stones Musculoskeletal History: Reports: Hx Arthritis - possible RA in hands, Hx Rheumatoid Arthritis Sensory History: Reports: Hx Cataracts - right eye, Hx Contacts or Glasses - glasses for reading, Hx Macular Degeneration, Hx Vision Problem - Retinal hemorrhage Denies: Hx Deafness, Hx Hearing Aid Opthamlomology History: Reports: Hx Cataracts - right eye, Hx Contacts or Glasses - glasses for reading, Hx Macular Degeneration, Hx Vision Problem - Retinal hemorrhage - Surgical History Surgery Procedure, Year, and Place: left foot- Surgery for diabetic ulcer. R leg- medical machinery Hx Anesthesia Reactions: No - Immunization History Date of Tetanus Vaccine: UTD Immunizations Up to Date: Yes Infectious Disease History: No Infectious Disease History: Denies: Hx Hepatitis, Hx Human Immunodeficiency Virus (HIV), Traveled Outside the [place] in Last 30 Days - Family History Known Family History: Positive: Cardiac Disease, Hypertension, Diabetes Family History: NO FAMILY H/O GOUT OR RA - Social History Alcohol Use: Occasionally Hx Substance Use: No Substance Use Type: Reports: None Hx Tobacco Use: Yes Smoking Status (MU): Former Smoker Type: Cigarettes Amount Used/How Often: smoked on and off for 15 years less than 1/2ppd Review of Systems Negative: Fever Positive: Chest Pain Positive: Shortness Of Breath. Negative: Cough Positive: Nausea. Negative: Abdominal Pain, Vomiting Positive: Weakness All Other Systems Reviewed And Are Negative: Yes Physical Exam Triage Information Reviewed: Yes Vital Signs On Initial Exam: Initial Vitals Temp Pulse Resp BP Pulse Ox 97.9 F 63 18 131/44 98 11/03/17 17:19 11/03/17 17:19 11/03/17 17:19 11/03/17 17:19 11/03/17 17:19 Vital Signs Reviewed: Yes Appearance: Positive: Well-Appearing Skin: Positive: Warm, Dry Head/Face: Positive: Normal Head/Face Inspection Eyes: Positive: Normal, Conjunctiva Clear ENT: Positive: Pharynx normal Respiratory/Lung Sounds: Positive: Clear to Auscultation, Breath Sounds Present Cardiovascular: Positive: Normal, RRR Abdomen Description: Positive: Nontender, Soft Bowel Sounds: Positive: Present Musculoskeletal: Positive: Normal Neurological: Positive: Normal Psychiatric: Positive: Normal Diagnostics - Vital Signs Vital Signs Temp Pulse Resp BP Pulse Ox 11/03/17 17:19 97.9 F 63 18 131/44 98 - Laboratory Result Diagrams: 11/03/17 18:12 11/03/17 18:11 Lab Statement: Any lab studies that have been ordered have been reviewed, and results considered in the medical decision making process. - Radiology chest Xray Interpretation: No Acute Changes Radiology Interpretation Completed By: Radiologist - EKG No standard instances Cardiac Rate: NL EKG Rhythm: Sinus Rhythm ST Segment: Normal EKG Interpretation: sinus rhythm, LVH EKG Comparison: No Significant Change Course/Dx - Course Course Of Treatment: 57-year-old female presents to dizziness and fatigue for the past couple days. She was sent she was seen here yesterday for her ankles but did not start to experience shortness of breath and chest pain with movement until today. States this feels similar to when she was anemic before and needed a blood transfusion. She denies any blood in her stool. She admits to nausea but no vomiting. No dark tarry stool. No abdominal pain. She states that the chest pain feels like a tightness. She denies any cardiac history. She does have a history of PEs but states this feels different. She has here INR checked today and it was 1.9. She denies any increased pain or swelling in her calf muscles. She does have family history of cardiac disease. She is a diabetic. She states this feels very weak. She states she thought weakness was just do to lack of sleep but states now it feels different. She denies any cough or fever or recent illness. She denies any history of asthma or COPD. She was a smoker. on exam lungs CTA. heart RRR. ekg normal sinus rhythm similiar to previous. chest xray normal.wbc normal. hemogobulin is 8.4. cr is worst than previous. discussed with dr rivers who agrees to admit. - Diagnoses Differential Diagnosis/HQI/PQRI: Positive: CHF, Pneumonia, Pulmonary Embolism, Other - anemia Provider Diagnoses: CKD (chronic kidney disease), Anemia, Shortness of breath, Weakness Discharge - Sign-Out/Discharge Documenting (check all that apply): Patient Departure - Discharge Plan Condition: Stable Disposition: ADMITTED TO [facility] Referrals: Deborah Pastor MD [Primary Care Provider] - - Billing Disposition and Condition Condition: STABLE Disposition: Admitted to [facility]
--- NOTE | 2017-11-03 18:03 | RAD ---
HISTORY: SOB COMPARISONS: December 20, 2016 VIEWS: 4: Frontal dual-energy and lateral views of the chest. FINDINGS: CARDIOMEDIASTINAL SILHOUETTE: The cardiomediastinal silhouette is normal. JUDITH: The judith are normal. PLEURA: The costophrenic angles are sharp. No pleural abnormalities are noted. LUNG PARENCHYMA: The lungs are clear. ABDOMEN: The upper abdomen is clear. There is no subphrenic gas. BONES AND SOFT TISSUES: No bone or soft tissue abnormalities are noted. OTHER: None. IMPRESSION: NO ACTIVE CARDIOPULMONARY DISEASE.
[2017-11-03 18:44] LABS: EGFR Non-African American 12.5 (>60)
[2017-11-03 18:44] LABS: ABS Basophils 0.1 10^3/ul (0-0.2); ABS Eosinophils 0.3 10^3/ul (0-0.6); ABS Lymphocytes 2.1 10^3/ul (1.0-4.8); ABS Monocytes 0.8 10^3/ul (0-0.8); ABS Neutrophils 7.5 10^3/ul (1.5-7.7); ABS Nucleated RBC 0 10^3/ul; Eosinophil % 2.5 % (0-6); Hematocrit 28 % (35-47); Hemoglobin 8.4 g/dl (12.0-16.0); Lymphocyte % 19.7 % (25-47); Mean Corpuscular HGB Conc 30 g/dl (31-36); Mean Corpuscular Hemoglobin 21 pg (27-31); Mean Corpuscular Volume 68 fL (80-97); Mean Platelet Volume 7.5 um3 (7.4-10.4); Nucleated Red Blood Cells % 0; Platelet Count 352 10^3/ul (150-450); Red Blood Count 4.02 10^6/ul (4.00-5.40); Red Cell Distribution Width 20 % (10.5-15); White Blood Count 10.8 10^3/ul (3.5-10.8)
[2017-11-03 19:54] LABS: INR 1.61 (0.77-1.02)
[2017-11-03] MEDS ORDERED: Docusate CAP* 100 MG PO PRN (20:14)
[2017-11-03] MEDS ORDERED: Ondansetron INJ* 2 MG/ML VIAL IV PRN (20:14)
[2017-11-03] MEDS ORDERED: Senna TAB PO PRN (20:14)
[2017-11-03] MEDS ORDERED: Al Hydrox/Mg Hydrox/Simet LIQ* 30 ML UDC PO PRN (20:14)
[2017-11-03] MEDS ORDERED: Dextrose 50% Syringe 50 ML* 25 GM/50 ML SYRINGE IV PUSH PRN (20:22)
[2017-11-03] MEDS ORDERED: Warfarin TAB(*) 5 MG PO ONE (20:24)
[2017-11-03] MEDS: Insulin GLARGINE(*) 1 UNITS UNIT SUBCUT SCH (22:33)
--- NOTE | 2017-11-03 22:46 | RAD ---
EXAM: US Retroperitoneal Complete, Renal EXAM DATE/TIME: Exam ordered 11/03/2017 9:58 PM CLINICAL HISTORY: 57 years old, female; Abnormal findings; Abnormal lab test; Abnormal kidney function lab tests; Additional info: Acute on chronic renal failure TECHNIQUE: Real-time ultrasound of the retroperitoneum (complete) with image documentation. COMPARISON: A/P WO CT ABD/PEL W/O 12/20/2016 4:04 PM FINDINGS: Right kidney: The right kidney measures 9.0 cm in its cephalocaudad dimension and 4.5 x 5.2 cm in diameter. No mass, cyst or hydronephrosis. No stones. Left kidney: The left kidney measures 9.7 cm in its cephalocaudad dimension and 5.1 x 5.1 cm in diameter. No mass, cyst or hydronephrosis. No stones. Bladder: The urinary bladder is within normal limits. Bilateral ureteral jets are noted. There is prevoid bladder volume of 69 mL. Complete emptying is noted with post void. Bladder wall thickness is 3 mm. IMPRESSION: Negative renal sonogram.
[2017-11-04] MEDS: Labetalol TAB* 200 MG PO SCH ×3 (00:46→21:45)
[2017-11-04] MEDS: Aspirin 81 mg CHEW TAB* 81 MG TAB.CHEW PO SCH ×2 (00:46→08:48)
[2017-11-04] MEDS: Sodium Bicarbonate (ANTACID)* 650 MG TAB PO SCH ×5 (00:46→23:53)
--- NOTE | 2017-11-04 02:22 | HP ---
CC: Dr. Deborah Pastor * HISTORY AND PHYSICAL: DATE OF ADMISSION: 11/03/17 TIME OF EVALUATION: 1999. PRIMARY CARE PHYSICIAN: Deborah Pastor MD CHIEF COMPLAINT: Fatigue and dyspnea and chest pain. HISTORY OF PRESENT ILLNESS: This is a 57-year-old female with past medical history of chronic anemia, diabetes, hypercoagulable state, on anticoagulation, who presents to the emergency room with worsening dyspnea on exertion, exertional chest pain, fatigue and nausea over the past few days. The patient' s 5 months ago and she states she has dropped the ball and caring for herself since then. She [facility] today, described her symptoms and they were concerned about her anemia as she did have anemia back in March requiring transfusions and they recommended she go to the emergency room for further evaluation. 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 She got dizzy and lightheaded today and as mentioned fatigued and dyspneic on exertion and exertional chest pain. She has never had a stress test in the past. She states she was following up with Hematology in [place], but lost to follow up due to complications at home with her recently passing. She was getting transfusions, iron infusions, she is supposed to be getting routine iron infusions, but her got sick and has not followed up. She would like to follow up locally. She has had a decreased appetite over the past few months and weight loss due to her 's passing. No fevers, no upper respiratory symptoms. No vomiting, abdominal pain, or urinary symptoms. She denies any changes in her urine output, seems to be adequate. She denies any black stools and bright red blood per rectum. She has had normal bowel movement , no indigestion. She is complaining of leg cramps at night. No lower extremity swelling. Otherwise, review of systems is negative. In the emergency room, the patient had labs and imaging and was referred to the hospitalist service for further evaluation. PAST MEDICAL HISTORY: 1. Chronic anemia. 2. Diabetes, on insulin. 3. Hyperlipidemia. 4. History of a hypercoagulable state with recurrent pulmonary emboli and DVT, on anticoagulation. 5. Osteoarthritis. 6. Hypertension. 7. CKD, stage 3. 8. History of Charcot's foot on the left lower extremity, followed by Dr. Wood. PAST SURGICAL HISTORY: 1. Right cataract extraction. 2. Right ankle surgery. 3. Left foot surgery for diabetic ulcer. MEDICATIONS: 1. Albiglutide 30 mg beneath the skin every 7 days, the patient states she has not been taking this. 2. Ascorbic acid 500 mg p.o. daily. 3. Chlorthalidone 25 mg daily. 4. Cholecalciferol 92244 units daily every 7 days. 5. Famotidine 20 mg p.o. b.i.d. 6. Ferrous sulfate 325 mg daily. 7. Lasix 20 mg daily. 8. Levemir 20 units at bedtime. 9. Lispro sliding scale. 10. Labetalol 200 mg p.o. b.i.d. 11. Magnesium carbonate daily. 12. Rosuvastatin 20 mg daily. 13. Sodium bicarbonate 650 mg 4 times a day. 14. Turmeric. 15. Coumadin as directed by the [facility]. ALLERGIES: No known drug allergies. SOCIAL HISTORY: The patient is recently . Her son, Flakito, is her healthcare proxy. 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 No smoking, rare alcohol use, no illicit drug use. CODE STATUS: Full code. FAMILY HISTORY: Mother at age 67 related to complications of anesthesia. Father , unknown. REVIEW OF SYSTEMS: A 14-point review of systems as mentioned in the HPI, otherwise negative. In addition, the patient states her hemoglobin A1c did bump up to 8 over the past 2 months. It was down to 6 prior to that. PHYSICAL EXAMINATION GENERAL: No acute distress, resting comfortably. VITAL SIGNS: Temp 97.9, pulse rate 63, respiratory rate 17, oxygen saturation 97 % on room air, blood pressure 124/58. HEENT: Head: Normocephalic. Pupils equal and reactive. Anicteric. Oropharynx: Mucous membranes are moist. NECK: Supple. No lymphadenopathy. RESPIRATORY: Clear to auscultation. No wheezing, rhonchi or rales. CARDIAC: Regular rate and rhythm. Soft systolic murmur heard most prominent at the left sternal base. ABDOMEN: Soft, nontender, no rebound or guarding. EXTREMITIES: The patient with trace pretibial edema. She has a boot on her left lower extremity. NEUROLOGIC: Alert and oriented x3. No gross focal neurological deficits. DIAGNOSTIC STUDIES/LAB DATA: White count 10.8, hemoglobin 8.4, hematocrit 28, platelets 352. INR is 1.61. Sodium 131, potassium 4.5, chloride 100, bicarb 21 , anion gap 13, BUN 71, creatinine 2.72, glucose 108. Troponin 0. BNP is 36. Radiographic data: EKG shows normal sinus rhythm at the rate of 62. Chest x- ray shows no active cardiopulmonary disease. ASSESSMENT: This is a 57-year-old female with a past medical history of anemia , chronic kidney disease stage 3, diabetes, and hypercoagulable state, on anticoagulation, who presents to the emergency room with dyspnea on exertion and chest pain with fatigue. 1. Dyspnea on exertion, chest pain, and fatigue. Assessment: The patient has a negative Hemoccult. Her H and H seems to be close to its baseline, maybe slightly less. Her MCV is lower. She is not overtly bleeding. She could have an occult bleed, especially in the setting of an elevated BUN. I have some concern that she is possibly on the dry side and volume depleted, more so related to her anemia. Plan, we will admit her to telemetry. We will trend her troponin, obtain an echocardiogram. She may benefit from an outpatient stress test at this point. We will check orthostatics, I am going to give her a L of fluid and start her on the baby aspirin for now, if her H and H drops more or if she has any bleeding, we will discontinue this. 2. Microcytic anemia. Assessment. This is likely multifactorial that she may have underlying thalassemia. She has chronic kidney disease. No overt bleeding is noted. It appears that she was supposed to be getting iron transfusions, but has not been able to follow up. Plan, no indications for transfusion at this time. She may be hemoconcentrated and needs transfusion in the morning depending on repeat labs. We will check her iron studies, SPEP, TSH and EPO level. She may also benefit from EPO injections and following up with Hematology as an outpatient as well as Nephrology. Continue her on her iron supplements. 3. Acute on chronic kidney injury. Assessment: Again, I think this is multifactorial with I think she is on the dry side. Her BUN is up. I don't think it is related to bleeding and she is getting chlorthalidone and Lasix. I also think her diabetes has been poorly controlled over the past few months, worsening her renal function as well. Plan: We will check an ultrasound of her kidney and bladder. Check urine, FENa , renally dose her meds. I am going to hold her Lasix and chlorthalidone, repeat her labs and recommend Nephrology followup. 5. History of hypercoagulable state with recurrent pulmonary embolism and deep venous thromboses. Assessment: She is subtherapeutic. I do not think she has worsening PE as she is not tachycardic or tacypneic and will be unable to get a CTA due to her renal function. And a V/Q scan may be helpful to rule it out but if a PE is present it will not differentiate from her old PEs. Because of this and concern for occult bleed, I will resume her Coumadin without bridging and monitor closely for any signs of bleeding. 6. Diabetes. We will check a hemoglobin A1c. Continue on her Lantus and Lispro. 7. Hypertension. As seen, the patient's blood pressures are quite variable. We will continue her on her labetalol, as mentioned I am going to hold her Lasix and chlorthalidone. 8. Hyperlipidemia. She is on rosuvastatin 4 mg, we will hold this to check a lipid panel in the morning. 9. FEN. We will place her on a diabetic renal diet. 10. DVT prophylaxis: The patient scores high risk. She is on Coumadin. 11. Code status. Full code. TIME SPENT: Greater than 50 minutes were spent doing the history and physical, more than half the time was spent in direct patient contact. [id number]/[facility] #: [id number] KATELYN
[2017-11-04 06:25] LABS: ABS Basophils 0 10^3/ul (0-0.2); ABS Eosinophils 0.3 10^3/ul (0-0.6); ABS Monocytes 0.9 10^3/ul (0-0.8); ABS Neutrophils 5.9 10^3/ul (1.5-7.7); ABS Nucleated RBC 0 10^3/ul; Eosinophil % 2.8 % (0-6); Hematocrit 25 % (35-47); Hemoglobin 7.7 g/dl (12.0-16.0); Mean Corpuscular HGB Conc 31 g/dl (31-36); Mean Corpuscular Hemoglobin 21 pg (27-31); Mean Corpuscular Volume 69 fL (80-97); Mean Platelet Volume 7.1 um3 (7.4-10.4); Nucleated Red Blood Cells % 0.1; Platelet Count 293 10^3/ul (150-450); Red Blood Count 3.63 10^6/ul (4.00-5.40); Red Cell Distribution Width 20 % (10.5-15)
[2017-11-04 06:27] LABS: INR 1.58 (0.77-1.02)
[2017-11-04 06:30] LABS: EGFR Non-African American 13.9 (>60)
[2017-11-04] MEDS: Famotidine TAB* 20 MG PO SCH (08:46)
[2017-11-04] MEDS: Ferrous Sulfate TAB* 325 MG PO SCH (08:48)
[2017-11-04] MEDS: Insulin LISPRO* 1 UNITS UNIT SUBCUT SCH ×3 (10:12→18:00)
[2017-11-04] MEDS ORDERED: Perflutren Lipid Microsphere* 3 ML VIAL ONE (12:04)
--- NOTE | 2017-11-04 13:45 | ECHO ---
Patient: ROXI RASCON [facility] Rec#: [id number] : 1960 Date: 11/04/2017 Age: 57y Height: 165.1 cm / 65.0 in Weight: 117.03 kg / 257.9 lbs Sex: F BSA: 2.2 Room#: [facility] Admit Date#: 11/03/2017 Type: Inpatient Referring: Candace Pabon Reading: Regina Sheehan MD Residential Support Specialist: Edith Morgan RDCS CC: Deborah Pastor MD Transthoracic Echocardiogram Indication: CP /SOB BP: 132/51 HR: 55 Rhythm: Bradycardia Findings History: Soft systolic murmur,anemia,DM,HLD,prior PE,HTN,CKD. Technical Comments: The study is technically limited due to patient body habitus. Completed at 1246. Definity used queta enhance images. Left Ventricle: The left ventricular chamber size is normal. Posterior wall hypertrophy is observed. Global left ventricular wall motion and contractility are within normal limits. The estimated ejection fraction is 50-55%. Abnormal left ventricular diastolic function is observed. Left Atrium: The left atrium is mildly dilated. Right Ventricle: The right ventricular cavity size is normal. The right ventricular global systolic function is normal. Right Atrium: The right atrium is not well visualized. Aortic Valve: The aortic valve is trileaflet. There is mild thickening of the left coronary cusp. There is a trace of aortic regurgitation. There is no evidence of aortic stenosis. Mitral Valve: The mitral valve leaflets appear normal. There is a trace of mitral regurgitation. There is no evidence of mitral stenosis. Tricuspid Valve: The tricuspid valve leaflets are normal. There is no evidence of tricuspid valve regurgitation. There is no tricuspid stenosis. Pulmonic Valve: The pulmonic valve appears normal. There is trace to mild pulmonic regurgitation. There is no pulmonic stenosis. Pericardium: A pericardial fat pad is visualized. Aorta: There is no dilatation of the ascending aorta. There is no dilatation of the aortic arch. There is no dilation of the aortic root. Pulmonary Artery: The main pulmonary artery appears normal. Venous: The venous system is not well visualized. Contrast: Definity was used to optimize study. A total of 4 ml used. Intravenous contrast was used to enhance endocardial border definition. Conclusions The left ventricular chamber size is normal. Global left ventricular wall motion and contractility are within normal limits. The estimated ejection fraction is 50-55%. Abnormal left ventricular diastolic function is observed. The right ventricular global systolic function is normal. There is mild thickening of the left coronary cusp, normal valvular function. There is a trace of mitral regurgitation. No prior echo to compare. Measurements Name Value Normal Range RVIDd (AP) 2D 3 cm (0.9 - 2.6) IVSd (2D) 0.8 cm (0.6 - 1) LVPWd (2D) 1.1 cm (0.6 - 1) LVIDd (2D) 4.58 cm (3.6 - 5.4) LVIDs (2D) 3.7 cm - LV FS (2D) 18 % (25 - 45) Aortic Annulus 2.1 cm (1.4 - 2.6) Ao root diameter (2D) 3.4 cm (2.1 - 3.5) Ascending Ao 3.1 cm (2.1 - 3.4) Aortic arch 1.7 cm (1.8 - 3.4) Descending Ao 0.9 cm - LA dimension (AP) 2D 4 cm (2.3 - 3.8) Name Value Normal Range MV E-wave Vmax 1 m/sec - MV deceleration time 231 msec - MV A-wave Vmax 0.7 m/sec - MV E:A ratio 1.45 ratio - LV septal e' Vmax 0.06 m/sec - LV lateral e' Vmax 0.11 m/sec - LV E:e' septal ratio 16.67 ratio - LV E:e' lateral ratio 9.09 ratio - Name Value Normal Range AV Vmax 1.2 m/sec - AV VTI 31.1 cm - AV peak gradient 5.62 mmHg - AV mean gradient 2.53 mmHg - LVOT Vmax 1.1 m/sec - LVOT VTI 30.5 cm - LVOT peak gradient 4.95 mmHg - LVOT mean gradient 2.2 mmHg - Name Value Normal Range PV Vmax 0.8 m/sec - PV peak gradient 2.7 mmHg -
[2017-11-04] MEDS ORDERED: Heparin VIAL(*) 5000 UNITS/ML VIAL (FIVE THOUSAND) IV PRN (14:24)
--- NOTE | 2017-11-04 14:26 | RAD ---
INDICATION: Elevated d-dimer with dyspnea on exertion. Comparison: Comparison is made with prior chest x-ray study from November 04, 2017. Technique: The patient was given 9.4 mCi of xenon-133 via a rebreathing mask. The lungs were imaged in both the anterior and posterior projections. Subsequently, the patient received 6.6 mCi of technetium 99 MAA intravenously and the lungs were imaged in 8 projections. FINDINGS: There are several segmental and subsegmental perfusion defects which are unmatched suggestive of high probability for pulmonary embolism. The prior chest x-ray study demonstrates clear lungs without pleural effusion. The results of this exam were called to the referring clinician. IMPRESSION: FINDINGS MOST CONSISTENT WITH HIGH PROBABILITY FOR PULMONARY EMBOLISM.
[2017-11-04] MEDS ORDERED: Heparin DRIP 25,000 UNITS(*) 25,000 UNITS/500 ML BAG IV SCH (14:30)
--- NOTE | 2017-11-04 14:31 | RAD ---
INDICATION: Chest pain COMPARISON: Similar chest x-ray November 03, 2017 TECHNIQUE: PA and lateral views of the chest were obtained. FINDINGS: The heart and mediastinum are normal in size and contour. The lungs are grossly clear. There is no evidence of large pleural effusion. Degenerative changes of the thoracic spine includes loss of intervertebral disc height and mild marginal osteophyte formation. There is no radiographic evidence of free air beneath the diaphragm IMPRESSION: No radiographic evidence of acute cardiopulmonary disease.
--- NOTE | 2017-11-04 14:45 | RAD ---
INDICATION: History of LEFT calf DVT. Dyspnea on exertion. Elevated d-dimer. Anticoagulated. COMPARISON: December 02, 2015 TECHNIQUE: Ingram scale, color Doppler, and spectral analysis of the deep veins of the BILATERAL lower extremities. Vessel compression, phasicity, and augmentation assessed. REPORT: The RIGHT common femoral, great saphenous, profunda femoral, femoral, popliteal, peroneal, and posterior tibial veins are patent. Conspicuity of the peroneal veins is limited due to body habitus. The LEFT common femoral, great saphenous, profunda femoral, femoral, popliteal, peroneal, and posterior tibial veins are patent. Conspicuity of the peroneal veins is limited due to body habitus. IMPRESSION: #. No evidence for RIGHT or LEFT lower extremity DVT.
[2017-11-04 15:34] LABS: ABS Basophils 0.1 10^3/ul (0-0.2); ABS Eosinophils 0.3 10^3/ul (0-0.6); ABS Lymphocytes 1.7 10^3/ul (1.0-4.8); ABS Monocytes 0.8 10^3/ul (0-0.8); ABS Neutrophils 7.2 10^3/ul (1.5-7.7); ABS Nucleated RBC 0 10^3/ul; Eosinophil % 2.7 % (0-6); Hematocrit 26 % (35-47); Lymphocyte % 16.7 % (25-47); Mean Corpuscular HGB Conc 31 g/dl (31-36); Mean Corpuscular Hemoglobin 21 pg (27-31); Mean Corpuscular Volume 68 fL (80-97); Mean Platelet Volume 7.5 um3 (7.4-10.4); Nucleated Red Blood Cells % 0; Platelet Count 321 10^3/ul (150-450); Red Blood Count 3.83 10^6/ul (4.00-5.40); Red Cell Distribution Width 20 % (10.5-15); White Blood Count 9.9 10^3/ul (3.5-10.8)
[2017-11-04 15:50] LABS: EGFR Non-African American 15.2 (>60)
--- NOTE | 2017-11-04 16:19 | PN ---
Subjective Date of Service: 11/04/17 Interval History: Pt seen and examined. Meds and labs reviewed. CC: MADDEN ROS: Denied ANAYA/dizziness, F/C, N/V, CP, , increased cough, sputum production, abd pain, diarrhea, constipation, dysuria, myalgias, arthralgias, throat pain, and new skin lesions. The rest of the 14 point ROS are unremarkable. PHYSICAL EXAM: GEN APPEARANCE: Awake, not in acute distress HEENT: NC/AT, PERRLA, moist oral mucosa, (-) throat erythema NECK: Soft, supple, (-) cervical LAD, (-)JVD HEART: S1S2 WNL, RRR, No MRG CHEST: CTA, BL, GAE, No W/R/R ABD: Soft, ND/NT, NABS 4x Q EXT: No C/C/E SKIN: Warm to touch PSYCH: No active psychosis, hallucinations, depression, SI/HI Objective Active Medications: Acetaminophen (Tylenol Tab*) 650 mg PO Q4H PRN PRN Reason: FEVER/PAIN Al Hydrox/Mg Hydrox/Simethicone (Maalox Plus*) 30 ml PO Q6H PRN PRN Reason: INDIGESTION Aspirin (Aspirin 81 Mg Chew Tab*) 81 mg PO DAILY [facility] Last Admin: 11/04/17 08:48 Dose: 81 mg Dextrose (D50w Syringe 50 Ml*) 12.5 gm IV PUSH .FOR FS < 60 - SS PRN PRN Reason: FS < 60 Docusate Sodium (Colace Cap*) 100 mg PO BID PRN PRN Reason: CONSTIPATION Famotidine (Pepcid Tab*) 20 mg PO DAILY [facility] Last Admin: 11/04/17 08:46 Dose: 20 mg Ferrous Sulfate (Ferrous Sulfate Tab*) 325 mg PO DAILY [facility] Last Admin: 11/04/17 08:48 Dose: 325 mg Heparin Sodium (Porcine) (Heparin Vial(*)) 0 units IV .BOLUS PRN PRN Reason: PER HEPARIN DRIP PROTOCOL Last Admin: 11/04/17 15:54 Dose: 6,250 units Heparin Sodium/Dextrose (Heparin Drip 25,000 Units(*)) 25,000 units in 500 mls @ 0 mls/hr IV PER RATE [facility]; Protocol Last Admin: 11/04/17 15:54 Dose: 30 mls/hr Insulin Glargine (Lantus(*)) 20 units SUBCUT Q24H [facility] Last Admin: 11/03/17 22:33 Dose: 20 unit Insulin Human Lispro (Humalog*) 0 units SUBCUT [facility]; Protocol Last Admin: 11/04/17 12:56 Dose: 1 units Labetalol HCl (Trandate Tab*) 200 mg PO BID [facility] Last Admin: 11/04/17 08:47 Dose: 200 mg Ondansetron HCl (Zofran Inj*) 4 mg IV Q4H PRN PRN Reason: NAUSEA/VOMITING Pharmacy Profile Note (Coumadin Per Pharmacy*) 1 note FOLLOW UP .PER PHARMACY PROTOC [facility]; Protocol Senna (Senokot Tab*) 1 tab PO BID PRN PRN Reason: CONSTIPATION Sodium Bicarbonate (Sodium Bicarbonate (Antacid)*) 650 mg PO Q6HR [facility] Last Admin: 11/04/17 12:25 Dose: 650 mg Warfarin Sodium (Coumadin Tab(*)) 4 mg PO ONCE@1700 ONE Stop: 11/04/17 17:01 Vital Signs - 8 hr 11/04/17 11/04/17 11:23 12:19 Temperature 98.0 F Pulse Rate 60 57 Respiratory 20 Rate Blood Pressure 109/64 (mmHg) O2 Sat by Pulse 100 Oximetry Oxygen Devices in Use Now: None Result Diagrams: 11/04/17 15:10 11/04/17 15:10 Microbiology and Other Data: Microbiology 11/03/17 17:05 Stool Occult Blood (CARMINE) - Final Stool Assess/Plan/Problems-Billing Assessment: - Patient Problems (1) MADDEN (dyspnea on exertion) Current Visit: Yes Status: Acute Code(s): R06.09 - OTHER FORMS OF DYSPNEA SNOMED Code(s): 52709716 Comment: -V/Q scan positive for multiple perfusion defects suggestive of multiple PEs -Will place pt on Heparin gtt -Continue Coumadin and will follow INR -Given recurrent history of DVTs will screen for SSD; unlikely to be factor V Leiden given she is but will send due to possibility of admixture; will check for prothrombin gene mutation; unfortunately, given she is on heparin gtt and Warfarin, will be unable to perform many functional mutation tests at this time (2) Anemia Current Visit: Yes Status: Acute Code(s): D64.9 - ANEMIA, UNSPECIFIED SNOMED Code(s): 118602497 Comment: -Iron deficiency anemia -Continue Ferrous sulfate supplementation (3) Acute on chronic renal insufficiency Current Visit: Yes Status: Acute Code(s): N28.9 - DISORDER OF KIDNEY AND URETER, UNSPECIFIED; N18.9 - CHRONIC KIDNEY DISEASE, UNSPECIFIED SNOMED Code(s ): 483136850 Comment: -Continue watchful waiting (4) Diabetes mellitus Current Visit: No Status: Acute Code(s): E11.9 - TYPE 2 DIABETES MELLITUS WITHOUT COMPLICATIONS SNOMED Code(s): 10559278 Comment: -Well-controlled -Continue current regimen (5) DVT prophylaxis Current Visit: Yes Status: Acute Code(s): SNM1374 - SNOMED Code(s): 421599452 Comment: -As above Status and Disposition: -As above
[2017-11-04] MEDS ORDERED: Warfarin TAB(*) 4 MG PO ONE (17:00)
[2017-11-04] MEDS ORDERED: Warfarin TAB(*) 6 MG PO ONE (17:00)
[2017-11-04 17:09] LABS: Urine Appearance Clear; Urine Blood Negative (Negative); Urine Color Straw; Urine Ketones Negative (Negative); Urine Protein 1+(30 mg/dL) (Negative); Urine Red Blood Cell 1+(3-5/hpf) (Absent); Urine Specific Gravity 1.008 (1.010-1.030); Urine Urobilinogen Negative (Negative); Urine White Blood Cell 2+(11-20/hpf) (Absent)
[2017-11-04] MEDS: Insulin GLARGINE(*) 1 UNITS UNIT SUBCUT SCH (21:45)
[2017-11-05 05:36] LABS: INR 1.93 (0.77-1.02)
[2017-11-05 05:40] LABS: ABS Basophils 0 10^3/ul (0-0.2); ABS Eosinophils 0.2 10^3/ul (0-0.6); ABS Lymphocytes 1.5 10^3/ul (1.0-4.8); ABS Monocytes 0.7 10^3/ul (0-0.8); ABS Neutrophils 6.7 10^3/ul (1.5-7.7); ABS Nucleated RBC 0 10^3/ul; Eosinophil % 2.6 % (0-6); Hematocrit 25 % (35-47); Hemoglobin 7.8 g/dl (12.0-16.0); Lymphocyte % 16.5 % (25-47); Mean Corpuscular HGB Conc 31 g/dl (31-36); Mean Corpuscular Hemoglobin 21 pg (27-31); Mean Corpuscular Volume 68 fL (80-97); Mean Platelet Volume 7.7 um3 (7.4-10.4); Nucleated Red Blood Cells % 0; Platelet Count 316 10^3/ul (150-450); Red Blood Count 3.65 10^6/ul (4.00-5.40); Red Cell Distribution Width 19 % (10.5-15); White Blood Count 9.2 10^3/ul (3.5-10.8)
[2017-11-05 05:45] LABS: EGFR Non-African American 16.9 (>60)
--- NOTE | 2017-11-05 06:27 | PN ---
Progress Note - Progress Note Date of Service: 11/05/17 Note: Paged - patient with nose bleed. Elevated PTT on heparin drip. Concerned about being on coumadin and heparin. INR this AM: 1.93. Will continue to hold heparin for now as patient is with a nose bleed and nearly therapuetic.
[2017-11-05] MEDS: Sodium Bicarbonate (ANTACID)* 650 MG TAB PO SCH ×3 (06:35→17:54)
[2017-11-05] MEDS: Insulin LISPRO* 1 UNITS UNIT SUBCUT SCH ×3 (08:00→17:53)
[2017-11-05] MEDS: Aspirin 81 mg CHEW TAB* 81 MG TAB.CHEW PO SCH (09:26)
[2017-11-05] MEDS: Ferrous Sulfate TAB* 325 MG PO SCH (09:27)
[2017-11-05] MEDS: Labetalol TAB* 200 MG PO SCH ×2 (09:28→20:50)
[2017-11-05] MEDS: Famotidine TAB* 20 MG PO SCH (09:28)
[2017-11-05] MEDS ORDERED: Warfarin TAB(*) 3 MG PO ONE (17:00)
[2017-11-05] MEDS: Insulin GLARGINE(*) 1 UNITS UNIT SUBCUT SCH (20:48)
[2017-11-06] MEDS: Sodium Bicarbonate (ANTACID)* 650 MG TAB PO SCH ×4 (00:28→18:03)
[2017-11-06] MEDS: Acetaminophen TAB* 325 MG PO PRN ×2 (05:41→21:19)
[2017-11-06 06:36] LABS: INR 1.96 (0.77-1.02)
[2017-11-06 06:37] LABS: ABS Basophils 0 10^3/ul (0-0.2); ABS Eosinophils 0.2 10^3/ul (0-0.6); ABS Lymphocytes 1.5 10^3/ul (1.0-4.8); ABS Monocytes 0.8 10^3/ul (0-0.8); ABS Neutrophils 7.6 10^3/ul (1.5-7.7); ABS Nucleated RBC 0 10^3/ul; Eosinophil % 2.1 % (0-6); Hematocrit 24 % (35-47); Hemoglobin 7.7 g/dl (12.0-16.0); Lymphocyte % 14.8 % (25-47); Mean Corpuscular HGB Conc 32 g/dl (31-36); Mean Corpuscular Hemoglobin 22 pg (27-31); Mean Corpuscular Volume 68 fL (80-97); Mean Platelet Volume 7.5 um3 (7.4-10.4); Nucleated Red Blood Cells % 0; Platelet Count 294 10^3/ul (150-450); Red Blood Count 3.59 10^6/ul (4.00-5.40); Red Cell Distribution Width 19 % (10.5-15); White Blood Count 10.2 10^3/ul (3.5-10.8)
[2017-11-06] MEDS ORDERED: Enoxaparin(*) 100 MG/ML SYR SUBCUT ONE (08:44)
[2017-11-06] MEDS: Insulin LISPRO* 1 UNITS UNIT SUBCUT SCH ×3 (10:05→18:05)
[2017-11-06] MEDS: Labetalol TAB* 200 MG PO SCH ×2 (10:07→21:11)
[2017-11-06] MEDS: Ferrous Sulfate TAB* 325 MG PO SCH (10:07)
[2017-11-06] MEDS: Aspirin 81 mg CHEW TAB* 81 MG TAB.CHEW PO SCH (10:07)
[2017-11-06] MEDS: Famotidine TAB* 20 MG PO SCH (10:08)
--- NOTE | 2017-11-06 10:59 | PN ---
Subjective Date of Service: 11/06/17 Interval History: Pt seen and examined. Meds and labs reviewed. CC: Pain on PIP joints. ROS: Denied ANAYA/dizziness, F/C, N/V, CP, SOB, increased cough, sputum production , abd pain, diarrhea, constipation, dysuria, myalgias, arthralgias, throat pain , and new skin lesions. The rest of the 14 point ROS are unremarkable. PHYSICAL EXAM: GEN APPEARANCE: Awake, not in acute distress HEENT: NC/AT, PERRLA, moist oral mucosa, (-) throat erythema NECK: Soft, supple, (-) cervical LAD, (-)JVD HEART: S1S2 WNL, RRR, No MRG CHEST: CTA, BL, GAE, No W/R/R ABD: Soft, ND/NT, NABS 4x Q EXT: No C/C/E, brace on RLE for Charcots foot SKIN: Warm to touch PSYCH: No active psychosis, hallucinations, depression, SI/HI Objective Active Medications: Acetaminophen (Tylenol Tab*) 650 mg PO Q4H PRN PRN Reason: FEVER/PAIN Last Admin: 11/06/17 05:41 Dose: 650 mg Al Hydrox/Mg Hydrox/Simethicone (Maalox Plus*) 30 ml PO Q6H PRN PRN Reason: INDIGESTION Aspirin (Aspirin 81 Mg Chew Tab*) 81 mg PO DAILY [facility] Last Admin: 11/06/17 10:07 Dose: 81 mg Dextrose (D50w Syringe 50 Ml*) 12.5 gm IV PUSH .FOR FS < 60 - SS PRN PRN Reason: FS < 60 Docusate Sodium (Colace Cap*) 100 mg PO BID PRN PRN Reason: CONSTIPATION Famotidine (Pepcid Tab*) 20 mg PO DAILY [facility] Last Admin: 11/06/17 10:08 Dose: 20 mg Ferrous Sulfate (Ferrous Sulfate Tab*) 325 mg PO DAILY [facility] Last Admin: 11/06/17 10:07 Dose: 325 mg Insulin Glargine (Lantus(*)) 20 units SUBCUT Q24H [facility] Last Admin: 11/05/17 20:48 Dose: 20 unit Insulin Human Lispro (Humalog*) 0 units SUBCUT [facility]; Protocol Last Admin: 11/06/17 10:05 Dose: 3 units Labetalol HCl (Trandate Tab*) 200 mg PO BID [facility] Last Admin: 11/06/17 10:07 Dose: 200 mg Ondansetron HCl (Zofran Inj*) 4 mg IV Q4H PRN PRN Reason: NAUSEA/VOMITING Oxycodone/Acetaminophen (Percocet 5/325 Tab*) 1 tab PO Q6H PRN PRN Reason: PAIN Pharmacy Profile Note (Coumadin Per Pharmacy*) 1 note FOLLOW UP .PER PHARMACY PROTOC [facility]; Protocol Senna (Senokot Tab*) 1 tab PO BID PRN PRN Reason: CONSTIPATION Sodium Bicarbonate (Sodium Bicarbonate (Antacid)*) 650 mg PO Q6HR [facility] Last Admin: 11/06/17 05:39 Dose: 650 mg Vital Signs - 8 hr 11/06/17 11/06/17 11/06/17 03:06 03:15 07:31 Temperature 98.6 F 97.5 F 98.3 F Pulse Rate 69 80 64 Respiratory 20 16 20 Rate Blood Pressure 125/56 120/74 135/56 (mmHg) O2 Sat by Pulse 98 99 Oximetry Oxygen Devices in Use Now: None Result Diagrams: 11/06/17 06:06 11/06/17 06:06 Microbiology and Other Data: Microbiology 11/03/17 17:05 Stool Occult Blood (CARMINE) - Final Stool Assess/Plan/Problems-Billing Assessment: - Patient Problems (1) Pulmonary thromboembolism Current Visit: Yes Status: Acute Code(s): I26.99 - OTHER PULMONARY EMBOLISM WITHOUT ACUTE COR PULMONALE SNOMED Code(s): 666141512 Comment: -V/Q scan positive for multiple perfusion defects suggestive of multiple PEs -Heparin gtt D/Cd the night prior due to epistaxis and INR being almost therapeutic; INR still sub-therapeutic and hence, will place give dose of 100 mg SQ heparin x1; Pt expected to likely be therapeutic in 1-2 days -Continue Coumadin and will follow INR -Pt claims to have been told she has Protein S deficiency in the past -SSD, Factor V Leiden, and prothrombin gene mutation screen pending (2) Anemia Current Visit: Yes Status: Acute Code(s): D64.9 - ANEMIA, UNSPECIFIED SNOMED Code(s): 231623500 Comment: -Iron deficiency anemia -Continue Ferrous sulfate supplementation (3) Acute on chronic renal insufficiency Current Visit: Yes Status: Acute Code(s): N28.9 - DISORDER OF KIDNEY AND URETER, UNSPECIFIED; N18.9 - CHRONIC KIDNEY DISEASE, UNSPECIFIED SNOMED Code(s ): 329649869 Comment: -Continue watchful waiting (4) Diabetes mellitus Current Visit: No Status: Acute Code(s): E11.9 - TYPE 2 DIABETES MELLITUS WITHOUT COMPLICATIONS SNOMED Code(s): 49245082 Comment: -Well-controlled -Continue current regimen (5) DVT prophylaxis Current Visit: Yes Status: Acute Code(s): WFM3688 - SNOMED Code(s): 907279772 Comment: -As above Status and Disposition: -For PT eval for D/C planning -For possible D/C in 1-2 days
[2017-11-06] MEDS: oxyCODONE/Acetamin 5/325 MG* TAB PO PRN (11:45)
[2017-11-06] MEDS ORDERED: Warfarin TAB(*) 4 MG PO ONE (17:00)
[2017-11-06 18:45] LABS: Prothrombin 20210 Mutation Negative (Negative)
[2017-11-06] MEDS: Insulin GLARGINE(*) 1 UNITS UNIT SUBCUT SCH (21:12)
[2017-11-07] MEDS: Sodium Bicarbonate (ANTACID)* 650 MG TAB PO SCH ×4 (00:30→17:47)
[2017-11-07 06:01] LABS: ABS Basophils 0.1 10^3/ul (0-0.2); ABS Eosinophils 0.3 10^3/ul (0-0.6); ABS Lymphocytes 1.4 10^3/ul (1.0-4.8); ABS Monocytes 0.8 10^3/ul (0-0.8); ABS Neutrophils 7.1 10^3/ul (1.5-7.7); ABS Nucleated RBC 0 10^3/ul; Eosinophil % 2.7 % (0-6); Hematocrit 24 % (35-47); Hemoglobin 7.4 g/dl (12.0-16.0); Lymphocyte % 14.5 % (25-47); Mean Corpuscular HGB Conc 31 g/dl (31-36); Mean Corpuscular Hemoglobin 21 pg (27-31); Mean Corpuscular Volume 68 fL (80-97); Mean Platelet Volume 7.1 um3 (7.4-10.4); Nucleated Red Blood Cells % 0; Platelet Count 294 10^3/ul (150-450); Red Blood Count 3.53 10^6/ul (4.00-5.40); Red Cell Distribution Width 20 % (10.5-15); White Blood Count 9.6 10^3/ul (3.5-10.8)
[2017-11-07 06:03] LABS: INR 1.85 (0.77-1.02)
[2017-11-07] MEDS: Acetaminophen TAB* 325 MG PO PRN (06:50)
[2017-11-07] MEDS: Insulin LISPRO* 1 UNITS UNIT SUBCUT SCH ×3 (09:24→18:55)
[2017-11-07] MEDS: Ferrous Sulfate TAB* 325 MG PO SCH (09:25)
[2017-11-07] MEDS: Labetalol TAB* 200 MG PO SCH ×2 (09:25→21:37)
[2017-11-07] MEDS: Famotidine TAB* 20 MG PO SCH (09:26)
[2017-11-07] MEDS: Aspirin 81 mg CHEW TAB* 81 MG TAB.CHEW PO SCH (09:26)
[2017-11-07] MEDS ORDERED: Enoxaparin(*) 100 MG/ML SYR SUBCUT SCH (10:00)
[2017-11-07] MEDS: oxyCODONE/Acetamin 5/325 MG* TAB PO PRN (11:41)
--- NOTE | 2017-11-07 12:56 | PN ---
Subjective Date of Service: 11/07/17 Interval History: Pt seen and examined. Meds and labs reviewed. CC: N/A ROS: Denied ANAYA/dizziness, F/C, N/V, CP, SOB, increased cough, sputum production , abd pain, diarrhea, constipation, dysuria, myalgias, arthralgias, throat pain , and new skin lesions. The rest of the 14 point ROS are unremarkable. PHYSICAL EXAM: GEN APPEARANCE: Awake, not in acute distress HEENT: NC/AT, PERRLA, moist oral mucosa, (-) throat erythema NECK: Soft, supple, (-) cervical LAD, (-)JVD HEART: S1S2 WNL, RRR, No MRG CHEST: CTA, BL, GAE, No W/R/R ABD: Soft, ND/NT, NABS 4x Q EXT: No C/C/E, brace on RLE for Charcots foot SKIN: Warm to touch PSYCH: No active psychosis, hallucinations, depression, SI/HI Objective Active Medications: Acetaminophen (Tylenol Tab*) 650 mg PO Q4H PRN PRN Reason: FEVER/PAIN Last Admin: 11/07/17 06:50 Dose: 650 mg Al Hydrox/Mg Hydrox/Simethicone (Maalox Plus*) 30 ml PO Q6H PRN PRN Reason: INDIGESTION Aspirin (Aspirin 81 Mg Chew Tab*) 81 mg PO DAILY [facility] Last Admin: 11/07/17 09:26 Dose: 81 mg Dextrose (D50w Syringe 50 Ml*) 12.5 gm IV PUSH .FOR FS < 60 - SS PRN PRN Reason: FS < 60 Docusate Sodium (Colace Cap*) 100 mg PO BID PRN PRN Reason: CONSTIPATION Enoxaparin Sodium (Lovenox(*)) 120 mg SUBCUT Q24H [facility] Famotidine (Pepcid Tab*) 20 mg PO DAILY [facility] Last Admin: 11/07/17 09:26 Dose: 20 mg Ferrous Sulfate (Ferrous Sulfate Tab*) 325 mg PO DAILY [facility] Last Admin: 11/07/17 09:25 Dose: 325 mg Insulin Glargine (Lantus(*)) 20 units SUBCUT Q24H [facility] Last Admin: 11/06/17 21:12 Dose: 20 unit Insulin Human Lispro (Humalog*) 0 units SUBCUT AC [facility]; Protocol Last Admin: 11/07/17 09:24 Dose: 3 units Labetalol HCl (Trandate Tab*) 200 mg PO BID [facility] Last Admin: 11/07/17 09:25 Dose: 200 mg Ondansetron HCl (Zofran Inj*) 4 mg IV Q4H PRN PRN Reason: NAUSEA/VOMITING Oxycodone/Acetaminophen (Percocet 5/325 Tab*) 1 tab PO Q6H PRN PRN Reason: PAIN Last Admin: 11/07/17 11:41 Dose: 1 tab Senna (Senokot Tab*) 1 tab PO BID PRN PRN Reason: CONSTIPATION Sodium Bicarbonate (Sodium Bicarbonate (Antacid)*) 650 mg PO Q6HR [facility] Last Admin: 11/07/17 11:41 Dose: 650 mg Warfarin Sodium (Coumadin Tab(*)) 7.5 mg PO DAILY@1700 [facility]; Protocol Vital Signs - 8 hr 11/07/17 11/07/17 11/07/17 07:52 11:41 12:01 Temperature 98.8 F 98.3 F Pulse Rate 63 Respiratory 20 16 Rate Blood Pressure 122/43 (mmHg) O2 Sat by Pulse 96 Oximetry Oxygen Devices in Use Now: None Result Diagrams: 11/07/17 05:30 11/06/17 06:06 Microbiology and Other Data: Microbiology 11/03/17 17:05 Stool Occult Blood (CARMINE) - Final Stool Assess/Plan/Problems-Billing Assessment: - Patient Problems (1) Pulmonary thromboembolism Current Visit: Yes Status: Acute Code(s): I26.99 - OTHER PULMONARY EMBOLISM WITHOUT ACUTE COR PULMONALE SNOMED Code(s): 551784688 Comment: -V/Q scan positive for multiple perfusion defects suggestive of multiple PEs -Unfortunately, INR decreased despite being on Pharmacy protocol; will override protocol and place pt on 7.5 mg PO of Coumadin and renally dose pt for full anticoagulation with Lovenox (120 mg qday SQ) -Continue Coumadin and will follow INR -Pt claims to have been told she has Protein S deficiency in the past -(-) SSD, Factor V Leiden and prothrombin gene mutations (2) Joint pain Current Visit: Yes Status: Acute Code(s): M25.50 - PAIN IN UNSPECIFIED JOINT SNOMED Code(s): 74556286 Comment: -Improved -Awaiting screening test for: anti CCP and RF to evaluate for RA; and lupus Ab, Anti-ds Ab, CAITY, Anti-phospholipid Ab to evaluate for lupus given SQ nodule and PID inflammation along with hypercoagulability, although pt mentions she has been told she has protein S deficiency (3) Anemia Current Visit: Yes Status: Acute Code(s): D64.9 - ANEMIA, UNSPECIFIED SNOMED Code(s): 905489119 Comment: -Iron deficiency anemia -Continue Ferrous sulfate supplementation (4) Acute on chronic renal insufficiency Current Visit: Yes Status: Acute Code(s): N28.9 - DISORDER OF KIDNEY AND URETER, UNSPECIFIED; N18.9 - CHRONIC KIDNEY DISEASE, UNSPECIFIED SNOMED Code(s ): 045682450 Comment: -Continue watchful waiting (5) Diabetes mellitus Current Visit: No Status: Acute Code(s): E11.9 - TYPE 2 DIABETES MELLITUS WITHOUT COMPLICATIONS SNOMED Code(s): 71530856 Comment: -Well-controlled -Continue current regimen (6) DVT prophylaxis Current Visit: Yes Status: Acute Code(s): [id number] - SNOMED Code(s): 297589356 Comment: -As above Status and Disposition: -For PT eval for D/C planning -D/C when INR is therapeutic
[2017-11-07] MEDS: Warfarin TAB(*) 7.5 MG PO SCH (17:46)
[2017-11-07] MEDS ORDERED: traMADol TAB* 50 MG PO PRN (21:35)
[2017-11-07] MEDS: Insulin GLARGINE(*) 1 UNITS UNIT SUBCUT SCH (21:36)
[2017-11-08] MEDS: Sodium Bicarbonate (ANTACID)* 650 MG TAB PO SCH ×4 (00:25→17:11)
[2017-11-08] MEDS: oxyCODONE/Acetamin 5/325 MG* TAB PO PRN ×3 (03:46→21:30)
[2017-11-08] MEDS: Acetaminophen TAB* 325 MG PO PRN ×2 (04:49→10:07)
[2017-11-08 06:25] LABS: ABS Basophils 0.1 10^3/ul (0-0.2); ABS Eosinophils 0.2 10^3/ul (0-0.6); ABS Lymphocytes 1.4 10^3/ul (1.0-4.8); ABS Monocytes 0.8 10^3/ul (0-0.8); ABS Neutrophils 8.4 10^3/ul (1.5-7.7); ABS Nucleated RBC 0 10^3/ul; Hematocrit 23 % (35-47); Hemoglobin 7.2 g/dl (12.0-16.0); Lymphocyte % 12.8 % (25-47); Mean Corpuscular HGB Conc 31 g/dl (31-36); Mean Corpuscular Hemoglobin 21 pg (27-31); Mean Corpuscular Volume 68 fL (80-97); Mean Platelet Volume 7.4 um3 (7.4-10.4); Nucleated Red Blood Cells % 0; Platelet Count 305 10^3/ul (150-450); Red Blood Count 3.42 10^6/ul (4.00-5.40); Red Cell Distribution Width 19 % (10.5-15); White Blood Count 10.9 10^3/ul (3.5-10.8)
[2017-11-08 06:31] LABS: INR 2.18 (0.77-1.02)
[2017-11-08 06:38] LABS: EGFR Non-African American 19.5 (>60)
[2017-11-08] MEDS: Insulin LISPRO* 1 UNITS UNIT SUBCUT SCH ×3 (09:59→17:39)
[2017-11-08] MEDS ORDERED: Enoxaparin(*) 150 MG/ML 1 ML SYRINGE SUBCUT SCH (10:00)
[2017-11-08] MEDS: Famotidine TAB* 20 MG PO SCH (10:04)
[2017-11-08] MEDS: Aspirin 81 mg CHEW TAB* 81 MG TAB.CHEW PO SCH (10:04)
[2017-11-08] MEDS: Ferrous Sulfate TAB* 325 MG PO SCH (10:04)
[2017-11-08] MEDS: Labetalol TAB* 200 MG PO SCH ×2 (10:04→21:30)
--- NOTE | 2017-11-08 13:36 | PN ---
Subjective Date of Service: 11/08/17 Interval History: Pt seen and examined. Meds and labs reviewed. CC: N/A ROS: Denied ANAYA/dizziness, F/C, N/V, CP, SOB, increased cough, sputum production , abd pain, diarrhea, constipation, dysuria, myalgias, arthralgias, throat pain , and new skin lesions. The rest of the 14 point ROS are unremarkable. PHYSICAL EXAM: GEN APPEARANCE: Awake, not in acute distress HEENT: NC/AT, PERRLA, moist oral mucosa, (-) throat erythema NECK: Soft, supple, (-) cervical LAD, (-)JVD HEART: S1S2 WNL, RRR, No MRG CHEST: CTA, BL, GAE, No W/R/R ABD: Soft, ND/NT, NABS 4x Q EXT: No C/C/E, brace on RLE for Charcots foot SKIN: Warm to touch PSYCH: No active psychosis, hallucinations, depression, SI/HI Objective Active Medications: Acetaminophen (Tylenol Tab*) 650 mg PO Q4H PRN PRN Reason: FEVER/PAIN Last Admin: 11/08/17 10:07 Dose: 650 mg Al Hydrox/Mg Hydrox/Simethicone (Maalox Plus*) 30 ml PO Q6H PRN PRN Reason: INDIGESTION Aspirin (Aspirin 81 Mg Chew Tab*) 81 mg PO DAILY [facility] Last Admin: 11/08/17 10:04 Dose: 81 mg Dextrose (D50w Syringe 50 Ml*) 12.5 gm IV PUSH .FOR FS < 60 - SS PRN PRN Reason: FS < 60 Docusate Sodium (Colace Cap*) 100 mg PO BID PRN PRN Reason: CONSTIPATION Famotidine (Pepcid Tab*) 20 mg PO DAILY [facility] Last Admin: 11/08/17 10:04 Dose: 20 mg Ferrous Sulfate (Ferrous Sulfate Tab*) 325 mg PO DAILY [facility] Last Admin: 11/08/17 10:04 Dose: 325 mg Insulin Glargine (Lantus(*)) 20 units SUBCUT Q24H [facility] Last Admin: 11/07/17 21:36 Dose: 20 unit Insulin Human Lispro (Humalog*) 0 units SUBCUT [facility]; Protocol Last Admin: 11/08/17 13:24 Dose: 3 units Labetalol HCl (Trandate Tab*) 200 mg PO BID [facility] Last Admin: 11/08/17 10:04 Dose: 200 mg Ondansetron HCl (Zofran Inj*) 4 mg IV Q4H PRN PRN Reason: NAUSEA/VOMITING Oxycodone/Acetaminophen (Percocet 5/325 Tab*) 1 tab PO Q6H PRN PRN Reason: PAIN Last Admin: 11/08/17 13:28 Dose: 1 tab Senna (Senokot Tab*) 1 tab PO BID PRN PRN Reason: CONSTIPATION Last Admin: 11/07/17 21:37 Dose: 1 tab Sodium Bicarbonate (Sodium Bicarbonate (Antacid)*) 650 mg PO Q6HR [facility] Last Admin: 11/08/17 13:24 Dose: 650 mg Tramadol HCl (Ultram*) 50 mg PO Q6H PRN PRN Reason: PAIN Last Admin: 11/07/17 21:53 Dose: 50 mg Warfarin Sodium (Coumadin Tab(*)) 7.5 mg PO DAILY@1700 [facility]; Protocol Last Admin: 11/07/17 17:46 Dose: 7.5 mg Vital Signs - 8 hr 11/08/17 11/08/17 11/08/17 07:41 07:47 07:59 Temperature 97.9 F Pulse Rate 65 Respiratory 20 20 16 Rate Blood Pressure 121/52 (mmHg) O2 Sat by Pulse 99 Oximetry 11/08/17 11/08/17 11:11 13:28 Temperature 98.2 F Pulse Rate 62 Respiratory 18 16 Rate Blood Pressure 102/55 (mmHg) O2 Sat by Pulse 100 Oximetry Oxygen Devices in Use Now: None Result Diagrams: 11/08/17 05:44 11/08/17 05:44 Microbiology and Other Data: Microbiology 11/03/17 17:05 Stool Occult Blood (CARMINE) - Final Stool Assess/Plan/Problems-Billing Assessment: - Patient Problems (1) Pulmonary thromboembolism Current Visit: Yes Status: Acute Code(s): I26.99 - OTHER PULMONARY EMBOLISM WITHOUT ACUTE COR PULMONALE SNOMED Code(s): 961529149 Comment: -V/Q scan positive for multiple perfusion defects suggestive of multiple PEs -INR today: 2.18 (from: 1.85) -Continue Coumadin at current dose and continue to monitor INR -Pt claims to have been told she has Protein S deficiency in the past -(-) SSD, Factor V Leiden and prothrombin gene mutations (2) Joint pain Current Visit: Yes Status: Acute Code(s): M25.50 - PAIN IN UNSPECIFIED JOINT SNOMED Code(s): 19633846 Comment: -Improved -Awaiting screening test for: anti CCP to evaluate for RA, although RF found to be normal; and lupus Ab, Anti-ds Ab, CAITY, Anti-phospholipid Ab to evaluate for lupus given SQ nodule and PID inflammation along with hypercoagulability, although pt mentions she has been told she has protein S deficiency (3) Anemia Current Visit: Yes Status: Acute Code(s): D64.9 - ANEMIA, UNSPECIFIED SNOMED Code(s): 503468019 Comment: -Iron deficiency anemia -Continue Ferrous sulfate supplementation (4) Acute on chronic renal insufficiency Current Visit: Yes Status: Acute Code(s): N28.9 - DISORDER OF KIDNEY AND URETER, UNSPECIFIED; N18.9 - CHRONIC KIDNEY DISEASE, UNSPECIFIED SNOMED Code(s ): 484017883 Comment: -Continue watchful waiting (5) Diabetes mellitus Current Visit: No Status: Acute Code(s): E11.9 - TYPE 2 DIABETES MELLITUS WITHOUT COMPLICATIONS SNOMED Code(s): 15917634 Comment: -Well-controlled -Continue current regimen (6) DVT prophylaxis Current Visit: Yes Status: Acute Code(s): OYY4805 - SNOMED Code(s): 806042997 Comment: -As above Status and Disposition: -For PT eval for D/C planning -For possible D/C in AM---will touch base with Rheumatology in AM for outpt F/U of above labs and outpt visit
[2017-11-08] MEDS: Warfarin TAB(*) 7.5 MG PO SCH (16:33)
[2017-11-08] MEDS: Insulin GLARGINE(*) 1 UNITS UNIT SUBCUT SCH (21:30)
[2017-11-09] MEDS: Acetaminophen TAB* 325 MG PO PRN ×2 (03:42→11:33)
--- NOTE | 2017-11-09 03:47 | PN ---
PROGRESS NOTE: DATE OF SERVICE: 11/05/17 SUBJECTIVE: The patient was seen and examined. Meds and labs reviewed. The patient's heparin drip was discontinued due to epistaxis given she was mostly therapeutic as far as her INR is concerned. CHIEF COMPLAINT: She mentions that Dr. Adan has spoken to her about her having a possible rheumatoid arthritis given her proximal interphalangeal joint pain and intermittent knee pain, but no metacarpophalangeal pain and she wonders whether she can be evaluated for this as well. REVIEW OF SYSTEMS: Other than this, her review of systems was otherwise unremarkable. PHYSICAL EXAMINATION: Shows the most recent vital signs of record with blood pressure 106/70, 74 beats per minute heart rate, 16 per minute respiratory rate , 98.3 degrees Fahrenheit. General Appearance: The patient is awake, alert, and oriented x3, not in acute distress. HEENT: Normocephalic and atraumatic. PERRLA. Extraocular muscles intact. Negative for icterus. Moist oral mucosa. Negative throat erythema. Neck is soft and supple with no cervical lymphadenopathy. No JVD. Chest: Clear to auscultation bilaterally. Good air entry. No wheezes, rales, or rhonchi. Heart: S1 and S2, within normal limits. Regular rate and rhythm. No murmurs, rubs, or gallops. Abdomen is soft, nondistended, and nontender. Normoactive bowel sounds x4 quadrants. Extremities: No cyanosis, clubbing, or edema. Psychiatric: No active psychosis, depression, suicidal, or homicidal ideation. Skin is warm to touch. ASSESSMENT AND PLAN: 1. Dyspnea on exertion secondary to multiple pulmonary emboli seen on V/Q scan. Continue to hold heparin drip at this time given the patient appears comfortable. Continue Coumadin and we will continue to follow INR until therapeutic. The patient is almost therapeutic at this point. Given her history of deep venous thrombosis, we will await screening for sickle cell disease and factor V Leiden as well as prothrombin gene mutation. However, she also mentioned and clarified today that she was told in the past that she might have protein S deficiency, which could lead to her hypercoagulability as described. 2. Iron deficiency anemia. Continue ferrous sulfate supplementation. 3. Inflammation of the proximal interphalangeal joints. We will check citrullinated polypeptide, rheumatoid factor, and CAITY. Screen for lupus as well as rheumatoid arthritis. 4. Diabetes mellitus. Continue current regimen, well controlled. 5. DVT prophylaxis. As above. 6. Disposition. For possible discharge once INR is therapeutic and we will defer subsequent followup of serologies with the patient's PCP and/or Rheumatology. [id number]/[facility] #: [id number] KATELYN
[2017-11-09] MEDS: Sodium Bicarbonate (ANTACID)* 650 MG TAB PO SCH ×3 (05:51→11:33)
[2017-11-09 06:29] LABS: ABS Basophils 0.1 10^3/ul (0-0.2); ABS Eosinophils 0.3 10^3/ul (0-0.6); ABS Lymphocytes 1.3 10^3/ul (1.0-4.8); ABS Monocytes 0.8 10^3/ul (0-0.8); ABS Nucleated RBC 0 10^3/ul; Eosinophil % 2.3 % (0-6); Hematocrit 23 % (35-47); Hemoglobin 7.1 g/dl (12.0-16.0); Lymphocyte % 11.6 % (25-47); Mean Corpuscular HGB Conc 30 g/dl (31-36); Mean Corpuscular Hemoglobin 21 pg (27-31); Mean Corpuscular Volume 69 fL (80-97); Mean Platelet Volume 7.3 um3 (7.4-10.4); Nucleated Red Blood Cells % 0.1; Platelet Count 315 10^3/ul (150-450); Red Blood Count 3.37 10^6/ul (4.00-5.40); Red Cell Distribution Width 19 % (10.5-15); White Blood Count 11.5 10^3/ul (3.5-10.8)
[2017-11-09 06:31] LABS: INR 2.51 (0.77-1.02)
[2017-11-09 06:46] LABS: EGFR Non-African American 18.5 (>60)
[2017-11-09] MEDS: Insulin LISPRO* 1 UNITS UNIT SUBCUT SCH ×2 (09:28→12:35)
[2017-11-09] MEDS: Aspirin 81 mg CHEW TAB* 81 MG TAB.CHEW PO SCH (09:29)
[2017-11-09] MEDS: Ferrous Sulfate TAB* 325 MG PO SCH (09:29)
[2017-11-09] MEDS: Famotidine TAB* 20 MG PO SCH (09:29)
[2017-11-09] MEDS: Labetalol TAB* 200 MG PO SCH (09:29)
[2017-11-09 11:24] VITALS: BP 117/55
--- NOTE | 2017-11-10 11:08 | DS ---
CC: Dr. Candace Pabon; Dr. Osvaldo Franco; Dr. Deborah Pastor; Dr. Bertrand * DISCHARGE SUMMARY: DATE OF ADMISSION: DATE OF DISCHARGE: 11/09/17 DISCHARGE DIAGNOSES: 1. Pulmonary thromboembolism. 2. Joint pain, workup for rheumatoid arthritis and lupus are pending. 3. Anemia secondary to iron deficiency. 4. Acute on chronic renal insufficiency. 5. Acute renal failure secondary to diuretics. 6. Diabetes mellitus, well controlled. HISTORY OF PRESENT ILLNESS/HOSPITAL COURSE: The patient is a 57-year-old lady with history of chronic anemia, diabetes and hypercoagulable state where she mentions that she had been told that she has protein S deficiency in the past and who presented with easy fatigability and dyspnea on exertion along with chest pain. Given her history of hypercoagulability with protein S as well as multiple DVTs in the past, a V/Q scan was done given her acute on chronic renal failure, could not tolerate contrast of the CT angio, which showed finding that is most consistent with high probability pulmonary embolism and venous Doppler was done which shows no evidence for right or left lower extremity DVT. Although, she was previously on warfarin, she was subtherapeutic when she was admitted. She was initially placed on heparin drip but then suddenly developed epistaxis, heparin drip was discontinued given she was almost therapeutic, but then continuing her home regimen with Coumadin, her Coumadin suddenly became subtherapeutic at 1.8 and hence was restarted on bridging dose at this time with Lovenox and Coumadin and given higher doses of Coumadin and has been discharged with an INR of 2.51. During her hospitalization stay, she also complained of some subcutaneous nodules in the dorsum of her left hand as well as arthralgias on her knee as well as her PIP joints. On exam, there was no obvious ulnar deviation quite yet although there might be some semblance of it; however, given her ethnicity a differential for RA was SLE and tumor markers for both RA and SLE were sent and are currently pending. Prior to her discharge, I had left a message in Dr. Bertrand's voicemail who mentions to me on followup call that he will be expecting patient in the outpatient setting and hence will defer and appreciate his help. On discharge, the patient was advised to follow up and/or call her PCP within 3 days post discharge. She was informed that I have spoken with Dr. Bertrand, her ham stripper who she can see as an outpatient regarding concerns of possible rheumatological conditions such as rheumatoid arthritis and lupus and to call his office at [phone] to make/or confirm her appointment. She was advised to make sure to keep her diet consistent such that her INRs do not widely fluctuate and if her symptoms resume or develop new ones or feel unwell for any reason to call her PCP. She was advised that if her PCP cannot entertain her due to scheduling issues alone, to call [facility] if the issue is not emergent. She was given script for repeat INR testing in 2 days and to discuss the results with their PCP, she was advised to call my office regarding any questions, concerns or further clarifications regarding her discharge plans and/ or prescriptions and to take her medications as prescribed. Phospholipid antibody, antidouble stranded antibody, antinuclear antibody, antiphospholipid IgM antibody as well as cyclic citrullinated peptide, IgG, as well as lupus anticoagulant were all sent. Rheumatoid factor was found to be normal. The rest are pending and we will differ with Dr. Bertrand's interpretation on followup upon his discussion with patient. DISCHARGE MEDICATIONS: 1. Tylenol 650 p.o. q.4 p.r.n. 2. 81 mg of aspirin of p.o. q. daily. 3. Cholecalciferol 2000 units p.o. q. daily. 4. Colace 200 mg p.o. q. daily. 5. Famotidine 20 mg p.o. q. daily. 6. Ferrous gluconate 325 mg p.o. t.i.d. 7. Insulin Detemir 20 units subcu q.h.s. 8. Insulin Lispro sliding scale. 9. Labetalol 200 mg p.o. t.i.d. 10. Oxycodone/Acetaminophen 5/325 tab or Percocet p.o. q.6 p.r.n. dispensed 12 tabs with 0 refills. 11. Rosuvastatin 20 mg p.o. q. daily. 12. Senna 1 tab p.o. b.i.d. 13. Sodium bicarbonate 325 mg p.o. b.i.d. 14. Trulicity 0.75 mg subcu every Thursday. 15. Warfarin 6 mg p.o. q. daily. PHYSICAL EXAMINATION: Prior to her discharge shows blood pressure 117/55, 98.6 degrees Fahrenheit, 63 beats per minute heart rate, 16 per minute respiratory rate, saturating at 99% room air. General appearance: The patient is awake, alert and oriented x3, not in acute distress. HEENT: Normocephalic, atraumatic , PERRLA, extraocular muscles intact, negative for icterus, moist oral mucosa, negative throat erythema. Neck is soft, supple with no cervical lymphadenopathy. No JVD. Heart: S1, S2 within normal limits, regular rate and rhythm, no murmurs, rubs and gallops. Chest: Clear to auscultation bilaterally. Good air entry. No wheezes, rales or rhonchi. Abdomen: Soft, nondistended, nontender. Normoactive bowel sounds 4 xq. Extremities: No cyanosis, clubbing or edema. Psychiatric: No active psychosis, depression, suicidal, nor homicidal ideation. Skin is warm to touch. TIME SPENT: The total time spent evaluating patient, reviewing pertinent data and appropriate documentation is 60 minutes. [id number]/CPS #: [id number] MTDD
== END 2017-11-09 16:26 | disposition home or self-care (01) | DRG 134 ==
LOC: ED 17:15 → MEDTELE 20:14 → OBSVTOIN 11-04 16:20
PROVIDERS: ADMIT Pediatrics; ATTEND Student in an Organized Health Care Education/Training Program
DX: I26.99 Other pulmonary embolism without acute cor pulmonale (principal); N17.9 Acute kidney failure, unspecified; M25.542 Pain in joints of left hand; M25.569 Pain in unspecified knee; D50.9 Iron deficiency anemia, unspecified; E11.22 Type 2 diabetes mellitus with diabetic chronic kidney disease; N18.3 Chronic kidney disease, stage 3 (moderate); R79.1 Abnormal coagulation profile; E78.5 Hyperlipidemia, unspecified; I12.9 Hypertensive chronic kidney disease with stage 1 through stage 4 chronic kidney disease, or unspecified chronic kidney disease; E11.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 with diabetic neuropathic arthropathy; Z79.01 Long term (current) use of anticoagulants; Z79.84 Long term (current) use of oral hypoglycemic drugs; Z79.899 Other long term (current) drug therapy; Z86.718 Personal history of other venous thrombosis and embolism
CPT/HCPCS: 36415; 71046; 76770; 78582; 80048; 80053; 80061; 81003; 81015; 81240; 81241; 82272; 82565; 82570; 82668; 82728; 83036; 83540; 83550; 83605; 83735; 83880; 84100; 84155; 84165; 84300; 84443; 84484; 84520; 85025; 85379; 85610; 85613; 85660; 85730; 86038; 86147; 86200; 86225; 86431; 86850; 86900; 86901; 87086; 93005; 93306; 93970; 99284; A9270-GY; A9540; A9558; C8929; J1644; J1650

== ENCOUNTER 2017-11-11 13:21 | Emergency (ER) | payer OTHER ==
--- OUTSIDE RECORDS SUMMARY | 2017-11-11 14:32 | XMS REPORT ---
:1960 External Reference #:[id number] Author Organization [facility] Address [address] [place] [address] Phone [phone] Care Team Providers Name Role Phone Deborah Pastor MD Primary Care Physician Unavailable Payers Type Date Identification Payment Subscriber Numbers Provider Health Maintenance Expires: Policy Number: [facility] Estefanía Mclaughlinette [facility] (O) 05/15/2017 [id number] Ppo/Epo PayID: [id number] [address] [place] [address] Medigap Part B Expires: 05/25/2017 Policy Number: [facility] Estefanía Mclaughlinette [id number] Group Number: [id number] [address] [address] PayID: [id number] [place] [address] Medigap Part B Expires: 10/16/2016 Policy Number: [facility] Estefanía Mclaughlinette [id number] (O) Group Number: [id number] [address] [address] [place] [address] Medigap Part B Expires: 05/16/2017 Policy Number: [facility] Estefanía Mclaughlinette [id number] Ppo/Epo PayID: [id number] [address] [place] [address] Medigap Part B Expires: 07/17/2017 Policy Number: [id number] Medicaid Estefanía Mclaughlinette Group Name: 1 1 [address] PayID: [id number] [place] [address] Commercial Effective: 07/17/2017 Policy Number: [id number] Kim[facility]ell Estefanía Mclaughlinette PayID: [id number] [address] [place] [address] Commercial Expires: 07/14/2017 Policy Number: [id number] Francisco Jon PayID: [id number] [address] [place] [address] Problems Description No Information Family History Date Family Member(s) Problem(s) Comments General Diabetes General Hypertension Social History Type Date Description Comments Lives With spouce Lives With Alone Occupation Currently Working ETOH Use Occasionally consumes alcohol Smoking Patient is a former smoker Exercise Type/Frequency Exercises regularly Allergies, Adverse Reactions, Alerts Date Description Reaction Status Severity Comments 10/27/2016 NKDA active Medications Medication Date Status Form Strength Qnty SIG Indications Ordering Provider Naprosyn 12/03/ Active Tablets 500mg 60tabs take 1 by Chantale 2017 mouth Loco, twice a M.D. day as needed pain Lantus 00/ Active 20U Unknown 0000 Humalog / Active 10U Unknown 0000 Chlorthalidone 00/ Active Unknown 0000 Vitamin D / Active Capsules 84856Gred take one Unknown (Ergocalciferol) 0000 capsule by mouth once weekly Furosemide / Active Unknown 0000 Labetalol HCL / Active Unknown 0000 Sodium / Active Unknown Bicarbonate 0000 Crestor / Active Unknown 0000 Coumadin / Active 7mg q day Unknown 0000 Vital Signs Date Vital Result Comment 08/20/2017 Height 64 inches 5'4" Weight 263.00 lb BP Systolic 124 mmHg BP Diastolic 66 mmHg Respiratory Rate 18 /min Pain Level 5 BMI (Body Mass Index) 45.1 kg/m2 07/28/2017 Height 64 inches 5'4" Heart Rate 88 /min BP Systolic 132 mmHg BP Diastolic 68 mmHg Respiratory Rate 18 /min Body Temperature 97.6 F Pain Level 2 06/23/2017 Height 64 inches 5'4" Weight 263.00 lb Heart Rate 76 /min BP Systolic 120 mmHg BP Diastolic 60 mmHg Respiratory Rate 20 /min Body Temperature 96.2 F Pain Level 4 BMI (Body Mass Index) 45.1 kg/m2 05/26/2017 Height 64 inches 5'4" Weight 263.00 lb Heart Rate 72 /min BP Systolic 168 mmHg BP Diastolic 82 mmHg Respiratory Rate 14 /min Body Temperature 96.6 F Pain Level 1 BMI (Body Mass Index) 45.1 kg/m2 11/14/2016 Height 64 inches 5'4" Weight 260.00 lb BP Systolic 146 mmHg BP Diastolic 90 mmHg Respiratory Rate 20 /min Pain Level 4 BMI (Body Mass Index) 44.6 kg/m2 10/27/2016 Height 64 inches 5'4" Weight 260.00 lb Heart Rate 72 /min BP Systolic 118 mmHg BP Diastolic 72 mmHg Respiratory Rate 16 /min Body Temperature 97.8 F Pain Level 4 BMI (Body Mass Index) 44.6 kg/m2 Results Test Date Test Result H/L Range Note CBC Auto Diff 10/27/2016 White Blood Count 13.8 10^3/uL High 3.5-10.8 Red Blood Count 4.44 10^6/uL 4.0-5.4 Hemoglobin 9.8 g/dL Low 12.0-16.0 Hematocrit 32 % Low 35-47 Mean Corpuscular Volume 72 fL Low 80-97 1 Mean Corpuscular Hemoglobin 22 pg Low 27-31 Mean Corpuscular HGB Conc 31 g/dL 31-36 Red Cell Distribution Width 19 % High 10.5-15 Platelet Count 436 10^3/uL 150-450 Mean Platelet Volume 7 um3 Low 7.4-10.4 Abs Neutrophils 10.1 10^3/uL High 1.5-7.7 Abs Lymphocytes 2.8 10^3/uL 1.0-4.8 Abs Monocytes 0.9 10^3/uL High 0-0.8 Abs Eosinophils 0.1 10^3/uL 0-0.6 Abs Basophils 0 10^3/uL 0-0.2 Abs Nucleated RBC 0.02 10^3/uL Granulocyte % 73.1 % 38-83 Lymphocyte % 19.9 % Low 25-47 Monocyte % 6.2 % 1-9 Eosinophil % 0.5 % 0-6 Basophil % 0.3 % 0-2 Nucleated Red Blood Cells % 0.1 Arthritis Panel 10/27/2016 Uric Acid 15.0 mg/dL High 2.3-6.6 Erythrocyte Sed Rate 120 mm/Hr High 0-30 Rheumatoid Factor <15 IU/mL <15 2 Anti-Nuclear Antibody 0.2 U 3 Cyclic Citrullinated Peptide <15.6 U 4 Interpretation See Comment 5 Comp Metabolic Panel 10/27/2016 Albumin 3.7 g/dL 3.2-5.2 Total Bilirubin 0.40 mg/dL 0.2-1.0 Sodium 138 mmol/L 133-145 Potassium 4.3 mmol/L 3.5-5.0 Chloride 101 mmol/L 101-111 Co2 Carbon Dioxide 29 mmol/L 22-32 Anion Gap 8 mmol/L 2-11 Glucose 106 mg/dL High 70-100 Blood Urea Nitrogen 57 mg/dL High 6-24 Creatinine 1.73 mg/dL High 0.51-0.95 BUN/Creatinine Ratio 32.9 High 8-20 Calcium 10.0 mg/dL 8.6-10.3 Total Protein 7.8 g/dL 6.4-8.9 Globulin 4.1 g/dL High 2-4 Albumin/Globulin Ratio 0.9 Low 1-3 Alkaline Phosphatase 122 U/L High 34-104 Alt 7 U/L 7-52 Ast 10 U/L Low 13-39 Egfr Non- 30.4 >60 Egfr 39.0 >60 6 1 Consistent with previous results on 12/02/15. 2 Test Performed by: [address] [address] 3 REFERENCE VALUE <=1.0 (Negative) 4 REFERENCE VALUE <20.0 (Negative) 5 Tests for antibodies to dsDNA and MCKENZIE antigens are not performed automatically unless the CAITY result is > or= 3.0 U. Studies performed at [facility] indicate that positive CAITY results <3.0 U are rarely accompanied by positive second order tests. Test Performed by: [address] [address] 6 Because ethnic data is not always readily available, this report includes an eGFR for both -Americans and non- Americans. The National Kidney Disease Education Program (NKDEP) does not endorse the use of the MDRD equation for patients that are not between the ages of 18 and 70, are , have extremes of body size, muscle mass, or nutritional status, or are non- or non-. According to the National Kidney Foundation, irrespective of diagnosis, the stage of the disease is based on the level of kidney function: Stage Description GFR(mL/min/1.73 m(2)) 1 Kidney damage with normal or decreased GFR 90 2 Kidney damage with mild decrease in GFR 60-89 3 Moderate decrease in GFR 30-59 4 Severe decrease in GFR 15-29 5 Kidney failure <15 (or dialysis) Procedures Date CPT Code Description Status 07/30/2017 Diabetic Foot Exam Completed Encounters Type Date Location Provider CPT E/M Dx Office Visit 08/20/2017 [facility], [address] M14.671 8:30a Christina Stafford Office Visit 07/28/2017 [facility] [address] M14.671 8:30a Christina Stafford Office Visit 06/23/2017 [facility], [address] M14.671 9:00a Christina Stafford Office Visit 05/26/2017 [facility] [address] M14.671 9:30a Christina Stafford Office Visit 03/29/2017 [facility], Sarah Mcgraw [address] D50.9 9:03a Hospitalists NADYA Barbosa N18.3 Z79.4 Office Visit 03/27/2017 9:01a [facility], Roseline Rahman [address] D50.9 Hospitalists Bobbi I10 E11.22 Office Visit 11/14/2016 2:45p [facility] M.D. 14039 M25.541 C.M.A. M25.441 Office Visit 10/27/2016 8:00a [facility] M.D. 03212 M25.541 C.M.A. M25.441 Plan of Care 08/20/2017 [facility] M.D.M14.671 Charcot's joint, right ankle and footFollow up:4-5 weeks
[2017-11-11 14:43] LABS: ABS Basophils 0.1 10^3/ul (0-0.2); ABS Eosinophils 0.3 10^3/ul (0-0.6); ABS Lymphocytes 1.6 10^3/ul (1.0-4.8); ABS Monocytes 0.7 10^3/ul (0-0.8); ABS Neutrophils 7.8 10^3/ul (1.5-7.7); ABS Nucleated RBC 0 10^3/ul; Eosinophil % 2.6 % (0-6); Hematocrit 24 % (35-47); Hemoglobin 7.4 g/dl (12.0-16.0); Lymphocyte % 15.4 % (25-47); Mean Corpuscular HGB Conc 31 g/dl (31-36); Mean Corpuscular Hemoglobin 21 pg (27-31); Mean Corpuscular Volume 68 fL (80-97); Nucleated Red Blood Cells % 0; Platelet Count 363 10^3/ul (150-450); Red Blood Count 3.56 10^6/ul (4.00-5.40); Red Cell Distribution Width 19 % (10.5-15); White Blood Count 10.4 10^3/ul (3.5-10.8)
[2017-11-11 14:55] LABS: EGFR Non-African American 21.6 (>60)
[2017-11-11] MEDS ORDERED: Metoclopramide IV* 5 MG/ML 2 ML VIAL IV SLOW PU ONE (15:03)
[2017-11-11 15:53] LABS: INR 3.91 (0.77-1.02)
--- NOTE | 2017-11-11 16:02 | RAD ---
HISTORY: HEADACHE HBP COMPARISONS: None TECHNIQUE: Multiple contiguous axial CT scans were obtained of the head without intravenous contrast. FINDINGS: HEMORRHAGE/INFARCT: There is no hemorrhage or acute infarct. MASSES/SHIFT: There is no mass or shift. EXTRA-AXIAL SPACES: There are no extra-axial fluid collections. SULCI AND VENTRICLES: The sulci and ventricles are normal in size and position for the patient's stated age. CEREBRUM: There is hypoattenuation of the periventricular and subcortical white matter. BRAINSTEM: There are no focal parenchymal abnormalities. CEREBELLUM: There are no focal parenchymal abnormalities. VESSELS: The vessels are grossly normal. PARANASAL SINUSES: The paranasal sinuses are clear. ORBITS: The orbits are unremarkable. BONES AND SOFT TISSUE: No bone or soft tissue abnormalities are noted. OTHER: None IMPRESSION: NO ACUTE INTRACRANIAL PATHOLOGY. CHRONIC SMALL VESSEL ISCHEMIC CHANGES.
--- NOTE | 2017-11-11 16:04 | ED ---
Headache - HPI Summary HPI Summary: This patient is a 57 year old F presenting to [facility] with a chief complaint of a gradually worsening constant 8/10 ANAYA since 11/08/17. She endorses the sx started as neck spasms that has gradually radiated upwards to the base of her occipital region, with pain worse on the right side. She notes sx aggravation with head movement, and denies much alleviation from Tylenol, which is all she has taken to manage the pain so far. Pt endorses weakness. She denies N/V/D, melena, blood in stool, blurry vision, ambulatory changes, fever, cold sx, and photophobia. She denies PMHx ANAYA or migraines. Pt was just in ED for blood clots , and is currently on blood thinners; she denies sudden onset or any trauma. - History Of Current Complaint Chief Complaint: EDHeadache Stated Complaint: HEADACHE/GENERAL ILLNESS Time Seen by Provider: 11/11/17 13:56 Hx Obtained From: Patient Onset/Duration: Gradual Onset, Started days ago, Still Present, Worse Since - Gradually Initially Headache Was: Moderate Currently Pain Is: Current Pain Scale(0-10)= - 8 Timing: Constant Location of Headache: Occipital Aggravating Factor: Position Change - head movement Allevating Factors: Nothing Associated Signs And Symptoms: Neck Pain, Other (Noted In Comments) - weakness - Allergies/Home Medications Allergies/Adverse Reactions: Allergies Allergy/AdvReac Type Severity Reaction Status Date / Time No Known Allergies Allergy Verified 11/03/17 17:24 Home Medications: Home Medications Dulaglutide (NF) [Trulicity (NF)] 0.75 mg SUBCUT FR 11/11/17 [History Confirmed 11/11/17] PMH/Surg Hx/FS Hx/Imm Hx Endocrine/Hematology History: Reports: Hx Anticoagulant Therapy - for Hx PE, coumadin , Hx Diabetes - type 2, Hx Anemia Denies: Hx Thyroid Disease Cardiovascular History: Reports: Hx Embolism - Pulmonary Embolism, Hx Hypercholesterolemia, Hx Hypertension - controlled with meds Denies: Hx Coronary Artery Disease Respiratory History: Reports: Hx Pulmonary Embolism - in the past Denies: Hx Asthma GI History: Denies: Hx Ulcer History: Reports: Other Problems/Disorders - Reports kidney problems Denies: Hx Kidney Stones Musculoskeletal History: Reports: Hx Arthritis - possible RA in hands, Hx Rheumatoid Arthritis Sensory History: Reports: Hx Cataracts - right eye, Hx Contacts or Glasses - glasses for reading, Hx Macular Degeneration, Hx Vision Problem - Retinal hemorrhage Denies: Hx Deafness, Hx Hearing Aid Opthamlomology History: Reports: Hx Cataracts - right eye, Hx Contacts or Glasses - glasses for reading, Hx Macular Degeneration, Hx Vision Problem - Retinal hemorrhage Psychiatric History: Denies: Hx Schizophrenia - Surgical History Surgery Procedure, Year, and Place: left foot- Surgery for diabetic ulcer. R leg- medical machinery Hx Anesthesia Reactions: No - Immunization History Date of Tetanus Vaccine: UTD Infectious Disease History: No Infectious Disease History: Denies: Hx Hepatitis, Hx Human Immunodeficiency Virus (HIV), Traveled Outside the [place] in Last 30 Days - Family History Known Family History: Positive: Cardiac Disease, Hypertension, Diabetes Family History: NO FAMILY H/O GOUT OR RA - Social History Alcohol Use: Occasionally Hx Substance Use: No Substance Use Type: Reports: None Hx Tobacco Use: Yes Smoking Status (MU): Former Smoker Type: Cigarettes Amount Used/How Often: smoked on and off for 15 years less than 1/2ppd Review of Systems Negative: Fever, Chills Negative: Blurred Vision, Erythema Negative: Sore Throat Negative: Chest Pain Negative: Shortness Of Breath, Cough Negative: Abdominal Pain, Vomiting, Diarrhea, Nausea Negative: dysuria, hematuria Positive: Arthralgia - neck, Myalgia - neck, Decreased ROM - neck, secondary to pain. Negative: Edema Negative: Rash Positive: Headache, Weakness All Other Systems Reviewed And Are Negative: Yes Physical Exam - Summary Physical Exam Summary: Constitutional: Well-developed, Well-nourished, Alert. (-) Distressed. Brace on right foot. Skin: Warm, Dry HENT: Normocephalic; Atraumatic Eyes: Conjunctiva normal Neck: Head pain with head and neck ROM. (-) JVD, (-) Stridor, (-) Tracheal deviation Cardio: Rhythm regular, rate normal, Heart sounds normal; Intact distal pulses; The pedal pulses are 2+ and symmetric. Radial pulses are 2+ and symmetric. (-) Murmur Pulmonary/Chest wall: Effort normal. (-) Respiratory distress, (-) Wheezes, (-) Rales Abd: Soft, (-) epigastric tenderness, (-) Distension, (-) Guarding, (-) Rebound Musculoskeletal: (-) Edema. Head pain with head and neck ROM. Lymph: (-) Cervical adenopathy Neuro: Alert, Oriented x3 Psych: Mood and affect Normal Triage Information Reviewed: Yes Vital Signs On Initial Exam: Initial Vitals Temp Pulse Resp BP Pulse Ox 98.2 F 73 20 153/85 96 11/11/17 13:26 11/11/17 13:26 11/11/17 13:26 11/11/17 13:26 11/11/17 13:26 Vital Signs Reviewed: Yes Diagnostics - Vital Signs Vital Signs Temp Pulse Resp BP Pulse Ox 11/11/17 15:02 62 20 152/73 95 11/11/17 15:00 64 21 100 11/11/17 14:40 62 26 146/71 98 11/11/17 14:02 61 22 137/69 98 11/11/17 14:00 62 25 98 11/11/17 13:33 70 98 11/11/17 13:31 73 153/85 96 11/11/17 13:26 98.2 F 73 20 153/85 96 - Laboratory Lab Results: Lab Results 11/11/17 11/11/17 11/11/17 Range/Units 14:25 14:25 14:25 WBC 10.4 (3.5-10.8) 10^3/ul RBC 3.56 L (4.00-5.40) 10^6/ul Hgb 7.4 L (12.0-16.0) g/dl Hct 24 L (35-47) % MCV 68 L (80-97) fL MCH 21 L (27-31) pg MCHC 31 (31-36) g/dl RDW 19 H (10.5-15) % Plt Count 363 (150-450) 10^3/ul MPV 7.0 L (7.4-10.4) um3 Neut % (Auto) 74.9 (38-83) % Lymph % (Auto) 15.4 L (25-47) % Monroe % (Auto) 6.5 (0-7) % Eos % (Auto) 2.6 (0-6) % Baso % (Auto) 0.6 (0-2) % Absolute Neuts (auto) 7.8 H (1.5-7.7) 10^3/ul Absolute Lymphs (auto) 1.6 (1.0-4.8) 10^3/ul Absolute Monos (auto) 0.7 (0-0.8) 10^3/ul Absolute Eos (auto) 0.3 (0-0.6) 10^3/ul Absolute Basos (auto) 0.1 (0-0.2) 10^3/ul Absolute Nucleated RBC 0 10^3/ul Nucleated RBC % 0 INR (Anticoag Therapy) (0.77-1.02) APTT (26.0-36.3) seconds Sodium 136 (135-145) mmol/L Potassium 4.2 (3.5-5.0) mmol/L Chloride 104 (101-111) mmol/L Carbon Dioxide 25 (22-32) mmol/L Anion Gap 7 (2-11) mmol/L BUN 53 H (6-24) mg/dL Creatinine 2.32 H (0.51-0.95) mg/dL Est GFR ( Amer) 26.1 (>60) Est GFR (Non-Af Amer) 21.6 (>60) BUN/Creatinine Ratio 22.8 H (8-20) Glucose 121 H (70-100) mg/dL Lactic Acid 0.8 (0.5-2.0) mmol/L Calcium 9.8 (8.6-10.3) mg/dL Total Bilirubin 0.30 (0.2-1.0) mg/dL AST 14 (13-39) U/L ALT 10 (7-52) U/L Alkaline Phosphatase 140 H (34-104) U/L Troponin I 0.01 (<0.04) ng/mL C-Reactive Protein 112.54 H (<8.01) mg/L Total Protein 7.6 (6.4-8.9) g/dL Albumin 3.6 (3.2-5.2) g/dL Globulin 4.0 (2-4) g/dL Albumin/Globulin Ratio 0.9 L (1-3) 11/11/ Range/Units 15:28 WBC (3.5-10.8) 10^3/ul RBC (4.00-5.40) 10^6/ul Hgb (12.0-16.0) g/dl Hct (35-47) % MCV (80-97) fL MCH (27-31) pg MCHC (31-36) g/dl RDW (10.5-15) % Plt Count (150-450) 10^3/ul MPV (7.4-10.4) um3 Neut % (Auto) (38-83) % Lymph % (Auto) (25-47) % Monroe % (Auto) (0-7) % Eos % (Auto) (0-6) % Baso % (Auto) (0-2) % Absolute Neuts (auto) (1.5-7.7) 10^3/ul Absolute Lymphs (auto) (1.0-4.8) 10^3/ul Absolute Monos (auto) (0-0.8) 10^3/ul Absolute Eos (auto) (0-0.6) 10^3/ul Absolute Basos (auto) (0-0.2) 10^3/ul Absolute Nucleated RBC 10^3/ul Nucleated RBC % INR (Anticoag Therapy) 3.91 H (0.77-1.02) APTT 47.3 H (26.0-36.3) seconds Sodium (135-145) mmol/L Potassium (3.5-5.0) mmol/L Chloride (101-111) mmol/L Carbon Dioxide (22-32) mmol/L Anion Gap (2-11) mmol/L BUN (6-24) mg/dL Creatinine (0.51-0.95) mg/dL Est GFR ( Amer) (>60) Est GFR (Non-Af Amer) (>60) BUN/Creatinine Ratio (8-20) Glucose (70-100) mg/dL Lactic Acid (0.5-2.0) mmol/L Calcium (8.6-10.3) mg/dL Total Bilirubin (0.2-1.0) mg/dL AST (13-39) U/L ALT (7-52) U/L Alkaline Phosphatase (34-104) U/L Troponin I (<0.04) ng/mL C-Reactive Protein (<8.01) mg/L Total Protein (6.4-8.9) g/dL Albumin (3.2-5.2) g/dL Globulin (2-4) g/dL Albumin/Globulin Ratio (1-3) Result Diagrams: 09/26/18 14:25 11/11/17 14:25 Lab Statement: Any lab studies that have been ordered have been reviewed, and results considered in the medical decision making process. - CT Brain CT Interpretation: No Acute Changes CT Interpretation Completed By: Radiologist - NO ACUTE INTRACRANIAL PATHOLOGY. CHRONIC SMALL VESSEL ISCHEMIC CHANGES. Dr. Almonte has reviewed this report. Brain MRI CT Interpretation: No Acute Changes CT Interpretation Completed By: Radiologist - No acute intracranial abnormality. Dr. Almonte has reviewed this report. Head MRI CT Interpretation: No Acute Changes CT Interpretation Completed By: Radiologist - Negative for dural venous sinus thrombosis. Dr. Almonte has reviewed this report. Head MRA CT Interpretation: No Acute Changes CT Interpretation Completed By: Radiologist - No hemodynamically significant stenosis or large vessel occlusion. Dr. Almonte has reviewed this report. Neck MRA CT Interpretation: No Acute Changes CT Interpretation Completed By: Radiologist - No hemodynamically significant stenosis. Dr. Almonte has reviewed this report. - EKG 1435 Cardiac Rate: NL - 60 EKG Rhythm: Sinus Rhythm ST Segment: Normal Ectopy: None EKG Interpretation: No STEMI. Re-Evaluation - Re-Evaluation First Eval Re-Evaluation Time: 16:28 Change: Improved Comment: ANAYA down to 5/10. Second Eval Re-Evaluation Time: 16:46 Change: Worse Comment: Right wrist and left knee are in pain, she notes she has similar sx when she has a RA flare-up. Headache Course/Dx - Course Course Of Treatment: A 57-year-old F presents to the ED with a CC of ANAYA for 3 days. (+) weakness, neck pain and stiffness. (-) vision changes, sudden onset, , trauma, N/V/D, melena, blood in stool, ambulatory changes, fever, cold sx, and photophobia. PMHx PE, rx blood thinners. A CT brain was (-) except for chronic small vessel ischemic changes. An EKG reveals NSR at 60 BPM with no STEMI. A brain MRI was (-). A head MRI was (-). A head MRA was (-). A neck MRA was (-). In the ED course, pt was given reglan. The patient shows abnormalities of RBC, H&H, MCV, MCH, RDW, MPV, lymph %, abs neuts, INR, APTT, BUN, creatinine , BUN/creatinine ratio, glucose, alkaline phosphatase, CRP, and albumin/ globulin ratio. Given her joint pain in right wrist, left knee, and now her neck, all of which are acute, I suspect a flare of her RA, gave her a dose of decadron, needs to follow up with PCP or [facility] in 2-3 days. - Diagnoses Provider Diagnoses: Cervical arthritis, Rheumatoid arthritis flare Discharge - Sign-Out/Discharge Documenting (check all that apply): Patient Departure - discharge - Discharge Plan Condition: Stable Disposition: HOME Patient Education Materials: Rheumatoid Arthritis (ED) Referrals: [facility] [Outside] Deborah Pastor MD [Primary Care Provider] - Additional Instructions: Follow up with [facility] or your primary care physician in 2-3 days. Return to the emergency department for any new or worsening symptoms. - Attestation Statements Document Initiated by Scribe: Yes Documenting Scribe: Kole Eng Provider For Whom Scribe is Documenting (Include Credential): Dr. Nathaniel Almonte MD Scribe Attestation: I, Kole Eng, scribed for Dr. Nathaniel Almonte MD on 11/11/17 at 2230.
[2017-11-11] MEDS ORDERED: Magnesium Sulfate 2 GM IV* 2 GM/50 ML BAG IVPB ONE (21:41)
[2017-11-11] MEDS ORDERED: Dexamethasone IV* 4 MG/ML 1 ML (4 MG) IV SLOW PU ONE (21:41)
--- NOTE | 2017-11-11 22:09 | RAD ---
EXAM: MR Head Without Intravenous Contrast EXAM DATE/TIME: 11/11/2017 9:20 PM CLINICAL HISTORY: 57 years old, female; Signs and symptoms; Other: Headache; Patient HX: C/O progressively worsening constant posterior headache since 11/08/17; Additional info: R occipital headache, eval for venous sinus thromb TECHNIQUE: Magnetic resonance images of the head/brain without intravenous contrast in multiple planes. COMPARISON: MRVHEADWO MRV HEAD W/O 11/11/2017 8:45 PM FINDINGS: Ventricles demonstrate normal size and configuration. Major vascular flow voids at the skull base are preserved. No extra-axial fluid collection. No midline shift or mass effect. Nonspecific gliosis involving the supratentorial white matter and aamir is likely secondary to chronic microvascular ischemia. No diffusion restriction. Minimal paranasal sinus disease. No mastoid effusion. IMPRESSION: No acute intracranial abnormality.
--- NOTE | 2017-11-11 22:11 | RAD ---
EXAM: MR Angiography Neck Without Intravenous Contrast EXAM DATE/TIME: 11/11/2017 8:44 PM CLINICAL HISTORY: 57 years old, female; Signs and symptoms; Headache; Patient HX: C/O progressively worsening constant posterior headache since 11/08/17; Additional info: Headache, hypercoagulable state TECHNIQUE: Magnetic resonance angiography images of the neck without intravenous contrast. COMPARISON: No relevant prior studies available. FINDINGS: Right common carotid artery: Unremarkable. No significant stenosis. No dissection or occlusion. Right internal carotid artery: Unremarkable. Extracranial segment is patent with no significant stenosis. No dissection or occlusion. Right external carotid artery: Unremarkable. No occlusion. Right vertebral artery: Unremarkable. No significant stenosis. No dissection or occlusion. Left common carotid artery: Unremarkable. No significant stenosis. No dissection or occlusion. Left internal carotid artery: Unremarkable. Extracranial segment is patent with no significant stenosis. No dissection or occlusion. Left external carotid artery: Unremarkable. No occlusion. Left vertebral artery: Left vertebral artery is dominant. No significant stenosis. No dissection or occlusion. Soft tissues: Unremarkable as visualized. CAROTID STENOSIS REFERENCE USING NASCET CRITERIA: % ICA stenosis = (1 - narrowest ICA diameter/diameter of distal cervical ICA) x 100. Mild - <50% stenosis. Moderate - 50-69% stenosis. Severe - 70-94% stenosis. Near occlusion - 95-99% stenosis. Occluded - 100% stenosis. IMPRESSION: No hemodynamically significant stenosis.
--- NOTE | 2017-11-11 22:13 | RAD ---
EXAM: MR Angiography Head Without Intravenous Contrast EXAM DATE/TIME: 11/11/2017 8:52 PM CLINICAL HISTORY: 57 years old, female; Signs and symptoms; Headache; Patient HX: C/O progressively worsening constant posterior headache since 11/08/17; Additional info: Headache, hypercoagulable state TECHNIQUE: Magnetic resonance angiography images of the head without intravenous contrast. COMPARISON: BRAIN WO CT BRAIN WO 11/11/2017 3:43 PM FINDINGS: Right internal carotid artery: No acute findings. Intracranial segment is patent with no significant stenosis. No aneurysm. Right anterior cerebral artery: Unremarkable. No occlusion or significant stenosis. No aneurysm. Right middle cerebral artery: Unremarkable. No occlusion or significant stenosis. No aneurysm. Right posterior cerebral artery: Unremarkable. No occlusion or significant stenosis. No aneurysm. Right vertebral artery: Unremarkable as visualized. Left internal carotid artery: No acute findings. Intracranial segment is patent with no significant stenosis. No aneurysm. Left anterior cerebral artery: Unremarkable. No occlusion or significant stenosis. No aneurysm. Left middle cerebral artery: Unremarkable. No occlusion or significant stenosis. No aneurysm. Left posterior cerebral artery: Unremarkable. No occlusion or significant stenosis. No aneurysm. Left vertebral artery: Left vertebral artery is dominant. Basilar artery: Unremarkable. No occlusion or significant stenosis. No aneurysm. IMPRESSION: No hemodynamically significant stenosis or large vessel occlusion.
--- NOTE | 2017-11-11 22:14 | RAD ---
EXAM: MR Venography Head Without Intravenous Contrast EXAM DATE/TIME: 11/11/2017 8:57 PM CLINICAL HISTORY: 57 years old, female; Signs and symptoms; Headache; Patient HX: C/O progressively worsening constant posterior headache since 11/08/17; Additional info: Headache, hypercoagulable state TECHNIQUE: Magnetic resonance venography images of the head without intravenous contrast. COMPARISON: MRAHEAD WO MRA HEAD W/O 11/11/2017 8:35 PM FINDINGS: Superior sagittal sinus: Unremarkable. Patent. Straight sinus: Unremarkable. Patent. Transverse sinuses: Unremarkable. Patent. Sigmoid sinuses: Unremarkable. Patent. Internal jugular veins: Unremarkable as visualized. Internal cerebral and cortical veins: Unremarkable as visualized. IMPRESSION: Negative for dural venous sinus thrombosis.
--- NOTE | 2017-11-11 22:19 | CONS ---
NEUROLOGY CONSULTATION: DATE OF CONSULTATION: 11/11/17 LOCATION: She is in the emergency room. REFERRING PROVIDER: Dr. Almonte. CHIEF COMPLAINT: Headache. HISTORY OF PRESENT ILLNESS: Estefanía Jon is a 57-year-old woman who was discharged from the hospital a few days ago after being treated for pulmonary emboli. While she was still in the hospital, she started to get an occipital headache. It worsened over the next several days. It remains occipitally and pretty much on both sides. She notes it hurts to move her neck. She presented to the emergency room. She has elevated inflammatory markers, which is chronic. There is a possibility she may have lupus. 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 Her this past year and she neglected her health. She normally does not get headaches. She has not experienced any nausea, photophobia, or change in vision with this headache. There are no falls. She has not had any chills or sweats. She has recurrent problems with inflammatory arthropathy currently affecting her right wrist and her left knee. PAST MEDICAL HISTORY: Notable for hypercoagulable state, DVTs, pulmonary emboli , inflammatory arthropathy, insulin-dependent diabetes, hyperlipidemia, hypertension, stage 3 kidney disease. PAST SURGICAL HISTORY: She has had a recent right ankle surgery. She had a diabetic ulcer in her left foot. MEDICATIONS AT HOME: Consist of: 1. Coumadin. 2. Trulicity 0.75 mg subcutaneous q. week. 3. Crestor 20 mg p.o. daily. 4. Labetalol 200 mg p.o. b.i.d. 5. Insulin. 6. Ferrous gluconate 325 mg p.o. t.i.d. 7. Pepcid 20 mg p.o. daily. 8. Colace 200 mg p.o. daily. 9. Vitamin D 2000 units p.o. daily. 10. Aspirin 81 mg p.o. daily. ALLERGIES: She does not have any drug allergies. REVIEW OF SYSTEMS: Negative for recent change in weight, fevers or sweats. No nausea or other intestinal symptoms. She has had a flare up of her arthritis and has an appointment to see Dr. Bertrand, Rheumatology. She has chronically elevated sedimentation rates and CRPs. PHYSICAL EXAMINATION: She is overweight, temperature 98.2, blood pressure most recently 147/63, heart rate is in the 60s and regular, respiratory rate is 22, oxygen saturation is 95%. Heart is in a regular rhythm without murmurs. There are no cervical bruits. Lungs are clear anterolaterally. Neck range of motion is limited with marked increase in pain with extension and right lateral rotation. There is a less degree of pain with left lateral rotation where she has more mobility. There is no pain with neck flexion. Neurologic Exam: Pupils react equally from 3 to 2 mm. Funduscopic exam reveals sharp discs bilaterally. There is no ptosis. Eye movements are normal. Visual young are full to confrontation. Facial musculature is intact and symmetric. Palate and tongue appear normal and there is no dysarthria. Facial sensation to light touch is intact. Sensation in the limbs is intact to light touch and pin. The right foot was not tested because of the boot. She has normal strength in the limbs, but there is pain with testing about the knees and the right wrist. There is no drift of the limbs. She is alert and an excellent historian. Memory is intact and language is fluent. LABORATORY DATA: Includes a CBC with anemia with a hemoglobin of 7.4. That is stable compared to earlier this month. Platelet count 363,000 and white blood cell count is normal at 10.4. INR is elevated at 3.91. It was 2.2 on 11/07/17. Hypercoagulation workup is negative for Factor V Leiden, lupus anticoagulant, prothrombin gene mutation. Chemistries today notable for creatinine of 2.32, which is stable compared to historical values in the EMR. Glucose is 121 today. CRP is elevated at 112.5. Brain CT is interpreted as normal noncontrast brain CT. I have reviewed the images and I agree. IMPRESSION: Probably a cervicogenic headache. Her pain is occipital and cervical and markedly aggravated by extension of the neck or right lateral rotation. Given her significant vascular risk factors in terms of both thrombosis as well as hemorrhage, I recommended MRI of the brain as well as a noncontrasted MR angiogram and MR venogram. I had also recommended getting x-rays of her neck. She does not have signs or symptoms of myelopathy or radiculopathy and so I do not think she needs an MRI of her cervical spine, but just I will look at the plain films. There does not appear to be any signs or symptoms of infection currently and so if those are negative, I think she could be just treated symptomatically with anti- inflammatory medications if allowable with her anticoagulation or other analgesics. I will follow up on her after her MR imaging is done. [id number]/CPS #: [id number] MTDD
[2017-11-11] MEDS ORDERED: traMADol TAB* 50 MG PO ONE (22:35)
[2017-11-11 22:52] VITALS: BP 129/76
== END 2017-11-11 22:51 | disposition home or self-care (01) ==
LOC: ED 13:21
DX: M47.812 Spondylosis without myelopathy or radiculopathy, cervical region (principal); M06.9 Rheumatoid arthritis, unspecified; R51 Headache; I12.9 Hypertensive chronic kidney disease with stage 1 through stage 4 chronic kidney disease, or unspecified chronic kidney disease; E11.22 Type 2 diabetes mellitus with diabetic chronic kidney disease; N18.3 Chronic kidney disease, stage 3 (moderate); E78.5 Hyperlipidemia, unspecified; Z79.4 Long term (current) use of insulin; Z79.01 Long term (current) use of anticoagulants; Z79.82 Long term (current) use of aspirin; Z87.891 Personal history of nicotine dependence; Z86.718 Personal history of other venous thrombosis and embolism; Z86.711 Personal history of pulmonary embolism
CPT/HCPCS: 36415; 70450; 70544; 70547; 70551; 80053; 83605; 84484; 85025; 85610; 85730; 86140; 93005; 96374; 96375; 99283; J1100; J2765; J3475

== ENCOUNTER 2017-11-20 15:50 | Emergency (ER) | payer OTHER ==
--- NOTE | 2017-11-20 17:23 | RAD ---
INDICATION: Left foot injury. Comparison is made with a prior x-ray study of the left ankle from November 02, 2017. TECHNIQUE: 2 views of the left foot were obtained. FINDINGS: There is diffuse soft tissue swelling present. The bones appear osteopenic. There are old healed fractures of the second and fifth metatarsals. There is severe joint space narrowing hypertrophic and erosive change in the first metatarsal-phalangeal joint. There is loss of height in the talus and calcaneus with some bony fragmentation which are unchanged from the prior exam most consistent with Charcot arthropathy as previously noted. IMPRESSION: 1. FINDINGS MOST CONSISTENT WITH CHARCOT ARTHROPATHY IN THE HINDFOOT. 2. FINDINGS MOST CONSISTENT WITH AN INFLAMMATORY ARTHROPATHY IN THE FIRST METATARSAL-PHALANGEAL JOINT.
[2017-11-20 19:04] LABS: ABS Basophils 0.1 10^3/ul (0-0.2); ABS Eosinophils 0 10^3/ul (0-0.6); ABS Lymphocytes 1.6 10^3/ul (1.0-4.8); ABS Monocytes 0.9 10^3/ul (0-0.8); ABS Neutrophils 12.3 10^3/ul (1.5-7.7); ABS Nucleated RBC 0 10^3/ul; Eosinophil % 0.2 % (0-6); Hematocrit 25 % (35-47); Hemoglobin 7.8 g/dl (12.0-16.0); Lymphocyte % 10.8 % (25-47); Mean Corpuscular HGB Conc 31 g/dl (31-36); Mean Corpuscular Hemoglobin 21 pg (27-31); Mean Corpuscular Volume 67 fL (80-97); Mean Platelet Volume 7.2 um3 (7.4-10.4); Nucleated Red Blood Cells % 0; Platelet Count 517 10^3/ul (150-450); Red Blood Count 3.75 10^6/ul (4.00-5.40); Red Cell Distribution Width 20 % (10.5-15); White Blood Count 14.9 10^3/ul (3.5-10.8)
[2017-11-20 19:17] LABS: EGFR Non-African American 15.3 (>60)
--- NOTE | 2017-11-20 19:25 | ED ---
Lower Extremity - HPI Summary HPI Summary: The patient is a 57 y/o F presenting to [facility] with a chief complaint of pain and discomfort in her left foot starting yesterday. She reports that she has nerve damage in the foot but isn't sure if it is broken or not, but she was recommended to come here to get it checked by her PCP. The aching discomfort is currently rated 5/10 in severity, and is aggravated by ambulation. She additionally states that her INR has been elevated much more than usual. She presented to [facility] a week ago where she was admitted, and her INR was elevated then as well, but has not decreased. She denies any blood loss including epistaxis and hematuria, as well as abd pain. She has no other complaints at this time. She currently takes Coumadin and was recently put on Prednisone. She has hx of anemia. She will present to her PCP tomorrow. - History of Current Complaint Chief Complaint: EDGeneral Stated Complaint: LT FOOT INJURY/FALL/GENERAL ILLNESS Time Seen by Provider: 11/20/17 19:07 Hx Obtained From: Patient Mechanism Of Injury: Unknown Onset of Pain: Hours Onset/Duration: Still Present - starting within the last day Severity Initially: Moderate Severity Currently: Moderate Pain Intensity: 5 Pain Scale Used: 0-10 Numeric Timing: Constant Location: Other - left foot Character Of Pain: Aching Associated Signs And Symptoms: Positive: Other - POSITIVE: elevated INR; NEGATIVE: hematuria, epistaxis. Negative: Abdominal Pain Aggravating Factor(s): Ambulation Alleviating Factor(s): Rest Able to Bear Weight: Yes Feet (Multiple View): 1 - pain and discomfort in left foot - Allergies/Home Medications Allergies/Adverse Reactions: Allergies Allergy/AdvReac Type Severity Reaction Status Date / Time No Known Allergies Allergy Verified 11/03/17 17:24 PMH/Surg Hx/FS Hx/Imm Hx Endocrine/Hematology History: Reports: Hx Anticoagulant Therapy - for Hx PE, coumadin , Hx Diabetes - type 2, Hx Anemia Denies: Hx Thyroid Disease Cardiovascular History: Reports: Hx Embolism - Pulmonary Embolism, Hx Hypercholesterolemia, Hx Hypertension - controlled with meds Denies: Hx Coronary Artery Disease Respiratory History: Reports: Hx Pulmonary Embolism - in the past Denies: Hx Asthma GI History: Denies: Hx Ulcer History: Reports: Other Problems/Disorders - Reports kidney problems Denies: Hx Kidney Stones Musculoskeletal History: Reports: Hx Arthritis - possible RA in hands, Hx Rheumatoid Arthritis Sensory History: Reports: Hx Cataracts - right eye, Hx Contacts or Glasses - glasses for reading, Hx Macular Degeneration, Hx Vision Problem - Retinal hemorrhage Denies: Hx Deafness, Hx Hearing Aid Opthamlomology History: Reports: Hx Cataracts - right eye, Hx Contacts or Glasses - glasses for reading, Hx Macular Degeneration, Hx Vision Problem - Retinal hemorrhage Psychiatric History: Denies: Hx Schizophrenia - Surgical History Surgery Procedure, Year, and Place: left foot- Surgery for diabetic ulcer. R leg- medical machinery Hx Anesthesia Reactions: No - Immunization History Date of Tetanus Vaccine: UTD Infectious Disease History: No Infectious Disease History: Denies: Hx Hepatitis, Hx Human Immunodeficiency Virus (HIV), Traveled Outside the [place] in Last 30 Days - Family History Known Family History: Positive: Cardiac Disease, Hypertension, Diabetes Family History: NO FAMILY H/O GOUT OR RA - Social History Alcohol Use: Occasionally Hx Substance Use: No Substance Use Type: Reports: None Hx Tobacco Use: Yes Smoking Status (MU): Former Smoker Type: Cigarettes Amount Used/How Often: smoked on and off for 15 years less than 1/2ppd Review of Systems Positive: Other - elevated INR Negative: Epistaxis Negative: Abdominal Pain Negative: hematuria Positive: Other - pain and discomfort in the left foot All Other Systems Reviewed And Are Negative: Yes Physical Exam - Summary Physical Exam Summary: Appearance: Well-appearing, Well-nourished, lying in bed comfortable Skin: Warm, dry, no obvious rash Eyes: sclera anicteric, no conjunctival pallor ENT: mucous membranes moist Neck: deferred Respiratory: No signs of respiratory distress Cardiovascular: Appears well perfused, pulses are nml Abdomen: deferred Musculoskeletal: Moving all 4 extremities without obvious discomfort, no focal tenderness in the left foot Neurological: Awake and alert, mentation is normal, speech is fluent and appropriate Psychiatric: affect is normal, does not appear anxious or depressed Triage Information Reviewed: Yes Vital Signs On Initial Exam: Initial Vitals Temp Pulse Resp BP Pulse Ox 96.7 F 59 16 117/55 97 11/20/17 16:33 11/20/17 16:33 11/20/17 16:33 11/20/17 16:33 11/20/17 16:33 Vital Signs Reviewed: Yes Diagnostics - Vital Signs Vital Signs Temp Pulse Resp BP Pulse Ox 11/20/17 16:33 96.7 F 59 16 117/55 97 - Laboratory Lab Results: Lab Results 11/20/17 11/20/17 Range/Units 18:41 18:41 WBC 14.9 H (3.5-10.8) 10^3/ul RBC 3.75 L (4.00-5.40) 10^6/ul Hgb 7.8 L (12.0-16.0) g/dl Hct 25 L (35-47) % MCV 67 L (80-97) fL MCH 21 L (27-31) pg MCHC 31 (31-36) g/dl RDW 20 H (10.5-15) % Plt Count 517 H D (150-450) 10^3/ul MPV 7.2 L (7.4-10.4) um3 Neut % (Auto) 82.5 (38-83) % Lymph % (Auto) 10.8 L (25-47) % Walsh % (Auto) 6.0 (0-7) % Eos % (Auto) 0.2 (0-6) % Baso % (Auto) 0.5 (0-2) % Absolute Neuts (auto) 12.3 H (1.5-7.7) 10^3/ul Absolute Lymphs (auto) 1.6 (1.0-4.8) 10^3/ul Absolute Monos (auto) 0.9 H (0-0.8) 10^3/ul Absolute Eos (auto) 0 (0-0.6) 10^3/ul Absolute Basos (auto) 0.1 (0-0.2) 10^3/ul Absolute Nucleated RBC 0 10^3/ul Nucleated RBC % 0 Sodium 135 (135-145) mmol/L Potassium 4.5 (3.5-5.0) mmol/L Chloride 99 L (101-111) mmol/L Carbon Dioxide 25 (22-32) mmol/L Anion Gap 11 (2-11) mmol/L BUN 81 H (6-24) mg/dL Creatinine 3.12 H (0.51-0.95) mg/dL Est GFR ( Amer) 18.5 (>60) Est GFR (Non-Af Amer) 15.3 (>60) BUN/Creatinine Ratio 26.0 H (8-20) Glucose 208 H (70-100) mg/dL Calcium 10.1 (8.6-10.3) mg/dL Total Bilirubin 0.30 (0.2-1.0) mg/dL AST 8 L (13-39) U/L ALT 7 (7-52) U/L Alkaline Phosphatase 149 H (34-104) U/L Total Protein 8.1 (6.4-8.9) g/dL Albumin 3.7 (3.2-5.2) g/dL Globulin 4.4 H (2-4) g/dL Albumin/Globulin Ratio 0.8 L (1-3) Result Diagrams: 11/20/17 18:41 11/20/17 18:41 Lab Statement: Any lab studies that have been ordered have been reviewed, and results considered in the medical decision making process. - Radiology Left Foot XR Xray Interpretation: No Acute Changes - 1. Findings most consistent with charcot arthropathy in the hindfoot. 2. Findings most consistent with an inflammatory arthropathy in the first metatarsal-phalangeal joint. ED physician has reviewed this report. Radiology Interpretation Completed By: Radiologist Lower Extremity Course/Dx - Course Course Of Treatment: This is a middle-aged woman with a number of chronic medical conditions who presents today being referred in by her primary physician for concerns about her anemia and Coumadin coagulopathy. The patient herself offers no specific complaints other than some pain in her foot that any specific trauma. She has chronic issues with Charcot foot. She denies any overt bleeding. Her laboratory studies show a hemoglobin of 7.8 which is actually somewhat better than her most recent hemoglobin level. Her INR is in the mid 5 range, again not where we want her, but given the lack of clinically overt bleeding I would not make any abrupt changes in her Coumadin other than to have her hold the next couple of days and have it rechecked in the office. Her x-ray of her foot does not show any acute fracture. She is stable for discharge at this point. She does not require inpatient hospitalization. - Diagnoses Provider Diagnoses: Chronic anemia, Warfarin-induced coagulopathy Discharge - Sign-Out/Discharge Documenting (check all that apply): Patient Departure - Patient will be discharged home. - Discharge Plan Condition: Good Disposition: HOME Patient Education Materials: Anemia (ED) Referrals: Deborah Pastor MD [Primary Care Provider] - 3 Days - Billing Disposition and Condition Condition: GOOD Disposition: Home - Attestation Statements Document Initiated by Tyron: Yes Documenting Scribe: Tiffany Srivastava Provider For Whom Tyron is Documenting (Include Credential): Dr. Osvaldo Hendrix MD Scribe Attestation: Tiffany Mc scribed for Dr. Osvaldo Hendrix MD on 11/20/17 at 1944. Scribe Documentation Reviewed: Yes Provider Attestation: The documentation as recorded by the Tiffany churchill accurately reflects the service I personally performed and the decisions made by me, Dr. Osvaldo Hendrix MD
[2017-11-20 19:36] LABS: INR 5.42 (0.77-1.02)
[2017-11-20 20:27] VITALS: BP 174/81
== END 2017-11-20 20:40 | disposition home or self-care (01) ==
LOC: ED 15:50
DX: D64.9 Anemia, unspecified (principal); R79.1 Abnormal coagulation profile; Z86.711 Personal history of pulmonary embolism; Z79.01 Long term (current) use of anticoagulants; Z87.891 Personal history of nicotine dependence; E11.9 Type 2 diabetes mellitus without complications; M79.672 Pain in left foot; E78.5 Hyperlipidemia, unspecified; I10 Essential (primary) hypertension; Z79.899 Other long term (current) drug therapy
CPT/HCPCS: 36415; 80053; 85025; 85610; 85730; 99282

== ENCOUNTER 2018-02-18 10:23 | Emergency (ER) | payer OTHER ==
--- NOTE | 2018-02-18 11:20 | ED ---
Skin Complaint - HPI Summary HPI Summary: 57-year-old female presents with lesions to her right ankle she noticed today. States she thought she has some pus in her socks. She states she has history of diabetes and charcot foot. She states that her brace may have been too tightness from rubbing on her ankle. She denies any pain. Has no sensation at baseline. - History of Current Complaint Chief Complaint: EDRashSkinAbscess Time Seen by Provider: 02/18/18 11:09 Stated Complaint: ANKLE INFECTION Pain Intensity: 3 - Additional Pertinent History Primary Care Physician: [id number] - Allergy/Home Medications Allergies/Adverse Reactions: Allergies Allergy/AdvReac Type Severity Reaction Status Date / Time No Known Allergies Allergy Verified 11/03/17 17:24 PMH/Surg Hx/FS Hx/Imm Hx Endocrine/Hematology History: Reports: Hx Anticoagulant Therapy - for Hx PE, coumadin , Hx Diabetes - type 2, Hx Anemia Denies: Hx Thyroid Disease Cardiovascular History: Reports: Hx Embolism - Pulmonary Embolism, Hx Hypercholesterolemia, Hx Hypertension - controlled with meds Denies: Hx Coronary Artery Disease Respiratory History: Reports: Hx Pulmonary Embolism - in the past Denies: Hx Asthma GI History: Denies: Hx Ulcer History: Reports: Other Problems/Disorders - Reports kidney problems Denies: Hx Kidney Stones Musculoskeletal History: Reports: Hx Arthritis - possible RA in hands, Hx Rheumatoid Arthritis Sensory History: Reports: Hx Cataracts - right eye, Hx Contacts or Glasses - glasses for reading, Hx Macular Degeneration, Hx Vision Problem - Retinal hemorrhage Denies: Hx Deafness, Hx Hearing Aid Opthamlomology History: Reports: Hx Cataracts - right eye, Hx Contacts or Glasses - glasses for reading, Hx Macular Degeneration, Hx Vision Problem - Retinal hemorrhage Psychiatric History: Denies: Hx Schizophrenia - Surgical History Surgery Procedure, Year, and Place: left foot- Surgery for diabetic ulcer. R leg- medical machinery Hx Anesthesia Reactions: No - Immunization History Date of Tetanus Vaccine: UTD Infectious Disease History: No Infectious Disease History: Denies: Hx Hepatitis, Hx Human Immunodeficiency Virus (HIV), Traveled Outside the [place] in Last 30 Days - Family History Known Family History: Positive: Cardiac Disease, Hypertension, Diabetes Family History: NO FAMILY H/O GOUT OR RA - Social History Alcohol Use: Occasionally Hx Substance Use: No Substance Use Type: Reports: None Hx Tobacco Use: Yes Smoking Status (MU): Former Smoker Type: Cigarettes Amount Used/How Often: smoked on and off for 15 years less than 1/2ppd Review of Systems Negative: Fever Negative: Chest Pain Negative: Shortness Of Breath Positive: Rash All Other Systems Reviewed And Are Negative: Yes Physical Exam Triage Information Reviewed: Yes Vital Signs On Initial Exam: Initial Vitals Temp Pulse Resp BP Pulse Ox 97.5 F 70 18 147/58 100 02/18/18 10:24 02/18/18 10:24 02/18/18 10:24 02/18/18 10:24 02/18/18 10:24 Vital Signs Reviewed: Yes Appearance: Positive: Well-Appearing Skin: Positive: Warm, Dry, Other - calus like lesion to right ankle with abrasion present. no erythema or discharge noted. no blood noted. no open area noted Head/Face: Positive: Normal Head/Face Inspection Eyes: Positive: Normal, Conjunctiva Clear ENT: Positive: Pharynx normal Respiratory/Lung Sounds: Positive: Clear to Auscultation, Breath Sounds Present Cardiovascular: Positive: Normal, RRR Musculoskeletal: Positive: Other - good pulses, no sensation at baseline. Neurological: Positive: Normal Psychiatric: Positive: Normal Diagnostics - Vital Signs Vital Signs Temp Pulse Resp BP Pulse Ox 02/18/18 10:24 97.5 F 70 18 147/58 100 - Laboratory Lab Statement: Any lab studies that have been ordered have been reviewed, and results considered in the medical decision making process. Course/Dx - Course Course Of Treatment: 57-year-old female presents with lesions to her right ankle she noticed today. States she thought she has some pus in her socks. She states she has history of diabetes and charcot foot. She states that her brace may have been too tightness from rubbing on her ankle. She denies any pain. Has no sensation at baseline. On exam callus like lesion noted on her ankle. No drainage. she does have abrasion on top of the callus. No erythema. No fluctuate. It may be the start of a pressure ulcer but no infection is noted at this time. Told to avoid pressure on the area. Told to follow-up with podiatry. Patient understands agrees with plan. - Differential Diagnoses - Skin Complaint Differential Diagnoses: Cellulitis, Contact Dermatitis, Other - diabetic foot ulcer - Diagnoses Provider Diagnoses: Type 2 diabetes mellitus with pressure callus Discharge - Sign-Out/Discharge Documenting (check all that apply): Patient Departure - Discharge Plan Condition: Good Disposition: HOME Referrals: Deborah Pastor MD [Primary Care Provider] - Additional Instructions: no open wound at this point wash area with soap and water daily Follow up with podiatry Avoid pressure on the area Return to ED if develop any new or worsening symptoms - Billing Disposition and Condition Condition: GOOD Disposition: Home
[2018-02-18 12:20] VITALS: BP 0/0
== END 2018-02-18 11:42 | disposition home or self-care (01) ==
LOC: ED 10:23
DX: E11.9 Type 2 diabetes mellitus without complications (principal); Z79.01 Long term (current) use of anticoagulants; Z87.891 Personal history of nicotine dependence; R21 Rash and other nonspecific skin eruption; L84 Corns and callosities
CPT/HCPCS: 99281

== ENCOUNTER 2018-07-14 13:57 | Emergency (ER) | payer OTHER ==
[2018-07-14] MEDS ORDERED: predniSONE TAB* 20 MG PO ONE (15:59)
--- NOTE | 2018-07-14 16:10 | ED ---
Upper Extremity Pain - HPI Summary HPI Summary: Pt is a 58 year old F presenting to [facility] with a chief complaint of R arm pain that radiates into the neck. The pt reports that she has rheumatoid arthritis and suffers from gout.. The pain is rated a 10/10. There are no alleviating or aggravating factors. The pt denies CP, nausea, SOB, and vomiting. The pt does not have any medications for the rheumatoid arthritis. - History of Current Complaint Chief Complaint: EDExtremityUpper Stated Complaint: RT ARM PAIN PER PT Time Seen by Provider: 07/14/18 15:14 Hx Obtained From: Patient Mechanism Of Injury: Other - Rheumatoid Arthritis Onset/Duration: Started Hours Ago, Still Present, Worse Since Timing: Constant Severity Initially: Severe Severity Currently: Severe Pain Location: Arm - extends down the Right Aggravating Factor(s): Nothing Alleviating Factor(s): Nothing Associated Signs & Symptoms: Positive: SOB, Neck Pain. Negative: Chest Pain, Nausea, Vomiting - Allergies/Home Medications Allergies/Adverse Reactions: Allergies Allergy/AdvReac Type Severity Reaction Status Date / Time No Known Allergies Allergy Verified 07/14/18 14:08 PMH/Surg Hx/FS Hx/Imm Hx Previously Healthy: No Endocrine/Hematology History: Reports: Hx Anticoagulant Therapy - for Hx PE, coumadin , Hx Diabetes - type 2, Hx Anemia Denies: Hx Thyroid Disease Cardiovascular History: Reports: Hx Embolism - Pulmonary Embolism, Hx Hypercholesterolemia, Hx Hypertension - controlled with meds Denies: Hx Coronary Artery Disease Respiratory History: Reports: Hx Pulmonary Embolism - in the past Denies: Hx Asthma GI History: Denies: Hx Ulcer History: Reports: Other Problems/Disorders - Reports kidney problems Denies: Hx Kidney Stones Musculoskeletal History: Reports: Hx Arthritis - possible RA in hands, Hx Rheumatoid Arthritis Sensory History: Reports: Hx Cataracts - right eye, Hx Contacts or Glasses - glasses for reading, Hx Macular Degeneration, Hx Vision Problem - Retinal hemorrhage Denies: Hx Deafness, Hx Hearing Aid Opthamlomology History: Reports: Hx Cataracts - right eye, Hx Contacts or Glasses - glasses for reading, Hx Macular Degeneration, Hx Vision Problem - Retinal hemorrhage Psychiatric History: Denies: Hx Schizophrenia - Surgical History Surgery Procedure, Year, and Place: left foot- Surgery for diabetic ulcer. R leg- medical machinery Hx Anesthesia Reactions: No - Immunization History Date of Tetanus Vaccine: UTD Infectious Disease History: No Infectious Disease History: Denies: Hx Hepatitis, Hx Human Immunodeficiency Virus (HIV), Traveled Outside the [place] in Last 30 Days - Family History Known Family History: Positive: Cardiac Disease, Hypertension, Diabetes Family History: NO FAMILY H/O GOUT OR RA - Social History Alcohol Use: Occasionally Hx Substance Use: No Substance Use Type: Reports: None Hx Tobacco Use: Yes Smoking Status (MU): Former Smoker Type: Cigarettes Amount Used/How Often: smoked on and off for 15 years less than 1/2ppd Review of Systems Positive: Other - Radiated pain from R arm into the neck Negative: Chest Pain Negative: Shortness Of Breath Negative: Vomiting, Nausea Positive: Other - R arm pain All Other Systems Reviewed And Are Negative: Yes Physical Exam - Summary Physical Exam Summary: Constitutional: Well-developed, Well-nourished, Alert. (-) Distressed Skin: Warm, Dry HENT: Normocephalic; Atraumatic Eyes: Conjunctiva normal Neck: Musculoskeletal ROM normal neck. (-) JVD, (-) Stridor, (-) Tracheal deviation Cardio: Rhythm regular, rate normal, Heart sounds normal; Intact distal pulses; The pedal pulses are 2+ and symmetric. Radial pulses are 2+ and symmetric. (-) Murmur Pulmonary/Chest wall: Effort normal. (-) Respiratory distress, (-) Wheezes, (-) Rales Abd: Soft, (-) tenderness, (-) Distension, (-) Guarding, (-) Rebound Musculoskeletal: Diffuse tenderness with palpation of the shoulder. Worse with active movement. One nodule on the dorsal R hand, one small nodule on the R Ulna. Lymph: (-) Cervical adenopathy Neuro: Alert, Oriented x3 Psych: Mood and affect Normal Triage Information Reviewed: Yes Vital Signs On Initial Exam: Initial Vitals Temp Pulse Resp BP Pulse Ox 97.6 F 63 16 156/68 98 07/14/18 14:06 07/14/18 14:06 07/14/18 14:06 07/14/18 14:06 07/14/18 14:06 Vital Signs Reviewed: Yes Diagnostics - Vital Signs Vital Signs Temp Pulse Resp BP Pulse Ox 07/14/18 14:06 97.6 F 63 16 156/68 98 - Laboratory Lab Statement: Any lab studies that have been ordered have been reviewed, and results considered in the medical decision making process. Course/Dx - Course Course Of Treatment: Pt is a 58 year old F presenting to [facility] with a chief complaint of R arm pain that radiates into the neck. The pt reports that she has rheumatoid arthritis and suffers from gout. The pt received Deltasone PO 30 mg for the arthritis and was recommended to a clerical stock inspector with the Dx of Rheumatoid Arthritis. The pt was discharged home and was instructed to return to the ED for any new or worsening symptoms. - Diagnoses Provider Diagnoses: Rheumatoid arthritis Discharge - Sign-Out/Discharge Documenting (check all that apply): Patient Departure - discharge Patient Received Moderate/Deep Sedation with Procedure: No - Discharge Plan Condition: Stable Disposition: HOME Prescriptions: methylPREDNISolone [Medrol] 4 mg PO DAILY #21 [id number] Patient Education Materials: Rheumatoid Arthritis (ED) Print Language: TURKMEN Referrals: [facility] [Provider Group] Deborah Pastor MD [Primary Care Provider] - - Billing Disposition and Condition Condition: STABLE Disposition: Home - Attestation Statements Document Initiated by Leslieibguanakito: Yes Documenting Scribe: Charlie Harris Provider For Whom Tyron is Documenting (Include Credential): Sweta Judge MD Scribe Attestation: Charlie Mc, scrtanaed for Sweta Hayes MD on 07/14/18 at 1902. Scribe Documentation Reviewed: Yes Provider Attestation: The documentation as recorded by the Charlie churchill accurately reflects the service I personally performed and the decisions made by me, Sweta Hayes MD Status of Scribe Document: Viewed
[2018-07-14 16:22] VITALS: BP 180/62
== END 2018-07-14 16:21 | disposition home or self-care (01) ==
LOC: ED 13:57
DX: M06.9 Rheumatoid arthritis, unspecified (principal); I10 Essential (primary) hypertension; E11.9 Type 2 diabetes mellitus without complications; E78.00 Pure hypercholesterolemia, unspecified; Z79.01 Long term (current) use of anticoagulants; Z86.711 Personal history of pulmonary embolism; Z87.891 Personal history of nicotine dependence
CPT/HCPCS: 99282; J7512

== ENCOUNTER 2018-09-20 21:00 | Inpatient (IN) | payer OTHER ==
--- OUTSIDE RECORDS SUMMARY | 2018-09-20 21:22 | XMS REPORT | Continuity of Care Document ---
:1960 External Reference #:[id number] Author Name Hannah Huntley Care Team Providers Name Role Phone Deborah Pastor MD Primary Care Physician Unavailable Payers Date Identification Numbers Payment Provider Subscriber Expires: 2017 Policy Number: [id number] [facility] Health Ins Ppo/Epo Estefanía Jon PayID: [id number] [address] [place] [address] Expires: 2017 Policy Number: [id number] [facility] Estefanía Jon Group Number: [id number] [address] [address] PayID: [id number] [place] [address] Expires: 2016 Policy Number: [id number] [facility] Estefanía Mclaughlinette Group Number: [id number] [address] [address] [place] [address] Expires: 2017 Policy Number: [id number] [facility] Ins Ppo/Epo Estefanía Jon PayID: [id number] [address] [place] [address] Expires: 2017 Policy Number: [id number] Medicaid Estefanía Jon Group Name: 1 1 [address] PayID: [id number] [place] [address] Effective: 2017 Policy Number: [id number] Francisco Mclaughlinette PayID: [id number] [place] [address] Expires: 2017 Policy Number: [id number] Francisco Mclaughlinette PayID: [id number] [address] Problems Active Problems Provider Date Long-term current use of insulin Kadeem Monson MD Onset: 2017 Joint pain Kadeem Monson MD Onset: 11/07/2017 Chronic kidney disease Kadeem Monson MD Onset: 11/04/2017 Anemia Kadeem Monson MD Onset: 11/04/2017 Difficulty breathing Kadeem Monson MD Onset: 11/04/2017 Pulmonary embolism Candace PabonDO Onset: 11/03/2017 Type 2 diabetes mellitus Candaceedward PabonDO Onset: 11/03/2017 Chronic kidney disease stage 3 Candace PabonDO Onset: 11/03/2017 Essential hypertension Candace PabonDO Onset: 11/03/2017 Acute renal failure syndrome Candace PabonDO Onset: 11/03/2017 Family History Date Family Member(s) Observation Comments General Diabetes General Hypertension Mother Diabetes Type II Mother Angina Siblings 1 1 brother- diabetes Social History Type Date Description Comments Sex Unknown Lives With spouce Lives With Alone 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 ETOH Use Occasionally consumes alcohol Tobacco Use Start: Unknown Patient is a former quit smoking 2007 End: Unknown smoker Recreational Drug Use Denies Drug Use Smoking Status Reviewed: 08/24/18 Patient is a former quit smoking 2008 smoker Exercise Type/Frequency Exercises regularly walking- daily and chair yoga 3-4 times per week Allergies, Adverse Reactions, Alerts Description No Known Drug Allergies Medications Active Medications SIG Qnty Indications Ordering Date Provider Ozempic inject 0.25mg 1.500ml E11.22 Atul Monroy, 08/24/2018 0.25or 0.5 mg/Dose weekly for 2 MD Solution Pen-Inject weeks, then increase to 0.5mg weekly Ozempic Hold On File For 3ml E11.22 Atul Monroy, 08/24/2018 1mg/Dose Solution Second Month, Pen-Inject 1mg injection once weekly Colchicine 1 by mouth daily 30tabs Atul Monroy, 06/03/2018 0.6mg Tablets as needed for gout Lantus 14 units at Unknown 100Unit/ML Solution bedtime Humalog 4-6 units with Unknown 100Unit/ML Solution meals plus sliding scale Chlorthalidone once daily Unknown 25mg Tablets Vitamin D take one capsule Unknown (Ergocalciferol) by mouth once [id number] weekly Capsules Furosemide 1 tablet daily Unknown 20mg Tablets Labetalol HCL 1 tablet twice Unknown 200mg Tablets daily Sodium Bicarbonate 1 tablet 4 times Unknown 650mg daily Tablets Coumadin as directed Unknown 2.5mg Tablets Hydroxychloroquine take one tablet Unknown Sulfate by mouth twice a 200mg Tablets day Turmeric 1 by mouth every Unknown 500mg Capsules day Iron 1 tablet 3 times Unknown 325(65Fe) mg Tablets daily History Medications Naprosyn take 1 by mouth 60tabs Chantale Adan M.D. 12/03/2016 - 500mg twice a day as 08/21/2018 Tablets needed pain Crestor 1 tablet daily- Unknown - 20mg Tablets hold if taking 05/25/2018 Colchicine. Medications Administered in Office Medication SIG Qnty Indications Ordering Provider Date Records Shirin Wood M.D. 08/10/2018 Injection Records Fee Thanh Wood M.D. 06/25/2018 Injection Vital Signs Date Vital Result Comment 08/24/2018 9:15am Height 64 inches 5'4" Weight 266.00 lb walking boot Heart Rate 70 /min BP Systolic Sitting 151 mmHg BP Diastolic Sitting 63 mmHg BMI (Body Mass Index) 45.7 kg/m2 07/20/2018 9:13am Height 64 inches 5'4" Weight 273.00 lb Heart Rate 84 /min BP Systolic 138 mmHg BP Diastolic 80 mmHg Respiratory Rate 22 /min Body Temperature 97.7 F Pain Level 4 BMI (Body Mass Index) 46.9 kg/m2 08/20/2017 9:07am Height 64 inches 5'4" Weight 263.00 lb BP Systolic 124 mmHg BP Diastolic 66 mmHg Respiratory Rate 18 /min Pain Level 5 BMI (Body Mass Index) 45.1 kg/m2 07/28/2017 8:44am Height 64 inches 5'4" Heart Rate 88 /min BP Systolic 132 mmHg BP Diastolic 68 mmHg Respiratory Rate 18 /min Body Temperature 97.6 F Pain Level 2 06/23/2017 9:56am Height 64 inches 5'4" Weight 263.00 lb Heart Rate 76 /min BP Systolic 120 mmHg BP Diastolic 60 mmHg Respiratory Rate 20 /min Body Temperature 96.2 F Pain Level 4 BMI (Body Mass Index) 45.1 kg/m2 05/26/2017 10:55am Height 64 inches 5'4" Weight 263.00 lb Heart Rate 72 /min BP Systolic 168 mmHg BP Diastolic 82 mmHg Respiratory Rate 14 /min Body Temperature 96.6 F Pain Level 1 BMI (Body Mass Index) 45.1 kg/m2 11/14/2016 3:14pm Height 64 inches 5'4" Weight 260.00 lb BP Systolic 146 mmHg BP Diastolic 90 mmHg Respiratory Rate 20 /min Pain Level 4 BMI (Body Mass Index) 44.6 kg/m2 10/27/2016 8:27am Height 64 inches 5'4" Weight 260.00 lb Heart Rate 72 /min BP Systolic 118 mmHg BP Diastolic 72 mmHg Respiratory Rate 16 /min Body Temperature 97.8 F Pain Level 4 BMI (Body Mass Index) 44.6 kg/m2 Results Test Date Facility Test Result H/L Range Note CBC Auto Diff 10/27/2016 [facility] White Blood 13.8 10^3/uL High 3.5-10.[address] [place] [address] [phone] Red Blood Count 4.44 10^6/uL N 4.0-5.4 Hemoglobin 9.8 g/dL Low 12.0-16.0 Hematocrit 32 % Low 35-47 Mean Corpuscular Volume 72 fL Low 80-97 1 Mean Corpuscular Hemoglobin 22 pg Low 27-31 Mean Corpuscular HGB Conc 31 g/dL N 31-36 Red Cell Distribution Width 19 % High 10.5-15 Platelet Count 436 10^3/uL N 150-450 Mean Platelet Volume 7 um3 Low 7.4-10.4 Abs Neutrophils 10.1 10^3/uL High 1.5-7.7 Abs Lymphocytes 2.8 10^3/uL N 1.0-4.8 Abs Monocytes 0.9 10^3/uL High 0-0.8 Abs Eosinophils 0.1 10^3/uL N 0-0.6 Abs Basophils 0 10^3/uL N 0-0.2 Abs Nucleated RBC 0.02 10^3/uL N Granulocyte % 73.1 % N 38-83 Lymphocyte % 19.9 % Low 25-47 Monocyte % 6.2 % N 1-9 Eosinophil % 0.5 % N 0-6 Basophil % 0.3 % N 0-2 Nucleated Red Blood Cells % 0.1 N Arthritis Panel 10/27/2016 [facility] Uric Acid 15.0 mg/dL High 2.3-6.6 [address] [place] [address] [phone] Erythrocyte Sed Rate 120 mm/Hr High 0-30 Rheumatoid Factor <15 IU/mL N <15 2 Anti-Nuclear Antibody 0.2 U N 3 Cyclic Citrullinated Peptide <15.6 U N 4 Interpretation See Comment N 5 Comp Metabolic Panel 10/27/2016 [facility] Albumin 3.7 g/dL N 3.2-5.2 [address] [place] [address] [phone] Total Bilirubin 0.40 mg/dL N 0.2-1.0 Sodium 138 mmol/L N 133-145 Potassium 4.3 mmol/L N 3.5-5.0 Chloride 101 mmol/L N 101-111 Co2 Carbon Dioxide 29 mmol/L N 22-32 Anion Gap 8 mmol/L N 2-11 Glucose 106 mg/dL High 70-100 Blood Urea Nitrogen 57 mg/dL High 6-24 Creatinine 1.73 mg/dL High 0.51-0.95 BUN/Creatinine Ratio 32.9 High 8-20 Calcium 10.0 mg/dL N 8.6-10.3 Total Protein 7.8 g/dL N 6.4-8.9 Globulin 4.1 g/dL High 2-4 Albumin/Globulin Ratio 0.9 Low 1-3 Alkaline Phosphatase 122 U/L High 34-104 Alt 7 U/L N 7-52 Ast 10 U/L Low 13-39 Egfr Non- 30.4 N >60 Egfr 39.0 N >60 6 1 Consistent with previous results on 12/02/15. 2 Test Performed by: [facility] - [facility] [address] [place] [address] 3 REFERENCE VALUE <=1.0 (Negative) 4 REFERENCE VALUE <20.0 (Negative) 5 Tests for antibodies to dsDNA and MCKENZIE antigens are not performed automatically unless the CAITY result is > or= 3.0 U. Studies performed at [facility] indicate that positive CAITY results <3.0 U are rarely accompanied by positive second order tests. Test Performed by: [facility] - [address] [address] 6 Because ethnic data is not always [...] Kidney failure <15 (or dialysis) Procedures Date Code Description Status 11/04/2017 51843 ECHO Transthorasic Realtime 2D W Doppler & Color Flow Completed Hosp 11/04/2017 33544 EKG, Interpretation Only Completed 07/30/2017 [id number] Diabetic Foot Exam Completed Encounters Type Date Location Provider Dx Diagnosis Office Visit 07/20/2018 [facility], M14.672 Charcot's 8:30a C.M.A. Rogelio. 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 Office Visit 11/08/2017 10:28a [facility] Kadeemeder Escalante I26.99 Other pulmonary Assoc,arlet Monson MD embolism Hospitalists without acute cor pulmonale N18.9 Chronic kidney disease, unspecified E11.22 Type 2 diabetes mellitus w diabetic chronic kidney disease M25.50 Pain in unspecified joint D64.9 Anemia, unspecified Office Visit 11/07/2017 10:28a [facility] Kadeemeder Escalante I26.99 Other pulmonary Assoc,arlet Monson MD embolism Hospitalists without acute cor pulmonale N18.9 Chronic kidney disease, unspecified E11.22 Type 2 diabetes mellitus w diabetic chronic kidney disease M25.50 Pain in unspecified joint D64.9 Anemia, unspecified Office Visit 11/06/2017 10:28a [facility] Kadeemeder Escalante I26.99 Other pulmonary Assoc,arlet Monson MD embolism Hospitalists without acute cor pulmonale N18.9 Chronic kidney disease, unspecified E11.22 Type 2 diabetes mellitus w diabetic chronic kidney disease D64.9 Anemia, unspecified Office Visit 11/05/2017 10:27a [facility] Kadeemeder Escalante R06.09 Other forms Assoc,arlet Monson MD of dyspnea Hospitalists D64.9 Anemia, unspecified E11.9 Type 2 diabetes mellitus without complications Office Visit 11/04/2017 10:25a [facility] Kadeem Escalante R06.09 Other forms Assoc,arlet Monson MD of dyspnea Hospitalists D64.9 Anemia, unspecified N18.9 Chronic kidney disease, unspecified E11.22 Type 2 diabetes mellitus w diabetic chronic kidney disease Office Visit 11/03/2017 10:25a [facility] Candace N17.9 Acute kidney Assoc,arlet Pabon, DO failure, Hospitalists unspecified I10 Essential (primary) hypertension N18.3 Chronic kidney disease, stage 3 (moderate) E11.22 Type 2 diabetes mellitus w diabetic chronic kidney disease I26.99 Other pulmonary embolism without acute cor pulmonale Office Visit 08/20/2017 [facility] M14.671 Charcot's joint, 8:30a [facility] M.D. right ankle and foot Office Visit 07/28/2017 [facility] Story.671 Charcot's joint, 8:30a [facility] M.D. right ankle and foot Office Visit 06/23/2017 [facility] Thanh Orantes671 Charcot's joint, 9:00a [facility] M.D. right ankle and foot Office Visit 05/26/2017 [facility] Than[facility] Orantes671 Charcot's joint, 9:30a [facility] M.D. 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 anemia, Hospitalists unspecified I10 Essential (primary) hypertension E11.22 Type 2 diabetes mellitus w diabetic chronic kidney disease Office Visit 11/14/2016 2:45p [facility] Chantale Adan, M25.541 Pain in [facility] Stafford of right hand M25.441 Effusion, right hand Office Visit 10/27/2016 8:00a [facility] Chantale Adan M25.541 Pain in [facility] Stafford of right hand M25.441 Effusion, right hand Plan of Treatment Future Appointment(s):10/22/2018 8:40 am - Atul Monroy MD at [facility]10/07/2018 10:00 am - Thanh Wood M.D. at [facility]/2018 - Atul Monroy MDE11.22 Type 2 diabetes mellitus with diabetic chronic kidney diseasNew Medication:Ozempic 0.25 or 0.5 mg/Dose - inject 0.25mg weekly for 2 weeks, then increase to 0.5mg weeklyOzempic 1 mg/Dose - Hold On File For Second Month, 1mg injection once weeklyInstructions:1. Blood tests today. 2. Start Ozempic as follows: - 0.25mg weekly for 2 weeks, then - 0.5mg weekly for 2 weeks, then - 1mg weekly after the first month (new prescription held on file) 3. Check blood glucose in the morning and afternoon before you eat. 4. Do not use Humalog unless pre-meal blood glucose is >180mg/dL. 5. Return in 3 months for a follow-up visit.N18.4 Chronic kidney disease, stage 4 (severe)E78.5 Hyperlipidemia, zcgohxbathtL95.672 Charcot's joint, left ankle and footI10 Essential (primary) hypertension
--- NOTE | 2018-09-21 01:05 | ED ---
Lower Extremity - HPI Summary HPI Summary: Patient complains of increasing bilateral foot pain 1 week, wound to right lateral ankle, swelling and erythema to right lower extremity 1 week, SOB 1 day, fever last night up to 103. Denies known trauma to ankle. Patient states that wound has not been evaluated, admits possible purulent discharge. Denies cough, sore throat, CP, N/V/D, abdominal pain, change in urine, change in BM, vaginal symptoms. Medical history is DM 2, HTN, CK D, prior PE, anemia, Charcot foot bilaterally. - History of Current Complaint Chief Complaint: EDExtremityLower Stated Complaint: POSS BROKEN BONE/INFECTION IN FOOT PER PT Time Seen by Provider: 09/20/18 23:30 Hx Obtained From: Patient Mechanism Of Injury: Unknown Onset of Pain: Days Onset/Duration: Days Severity Initially: Mild Severity Currently: Severe Pain Intensity: 9 Pain Scale Used: 0-10 Numeric Timing: Constant Location: Is Discrete @ Character Of Pain: Sharp, Dull, Aching, Throbbing Associated Signs And Symptoms: Positive: Swelling, Redness Aggravating Factor(s): Standing, Movement, Weight Bearing Alleviating Factor(s): Rest, Elevation Able to Bear Weight: No - Allergies/Home Medications Allergies/Adverse Reactions: Allergies Allergy/AdvReac Type Severity Reaction Status Date / Time No Known Allergies Allergy Verified 09/20/18 21:09 Home Medications: Home Medications Allopurinol 100 mg PO DAILY WITH MEAL 09/21/18 [History Confirmed 09/21/18] Furosemide 20 mg PO DAILY WITH MEAL 09/21/18 [History Confirmed 09/21/18] Semaglutide [Ozempic] 0.25 units INJ WEEKLY 09/21/18 [History Confirmed 09/21/18 ] Warfarin TAB(*) [Coumadin TAB(*)] 5 mg PO DAILY@1700 09/21/18 [History Confirmed 09/21/18] PMH/Surg Hx/FS Hx/Imm Hx Endocrine/Hematology History: Reports: Hx Anticoagulant Therapy - for Hx PE, coumadin , Hx Diabetes - type 2, Hx Anemia Denies: Hx Thyroid Disease Cardiovascular History: Reports: Hx Embolism - Pulmonary Embolism, Hx Hypercholesterolemia, Hx Hypertension - controlled with meds Denies: Hx Coronary Artery Disease Respiratory History: Reports: Hx Pulmonary Embolism - in the past Denies: Hx Asthma GI History: Denies: Hx Ulcer History: Reports: Other Problems/Disorders - Reports kidney problems Denies: Hx Kidney Stones Musculoskeletal History: Reports: Hx Arthritis - possible RA in hands, Hx Rheumatoid Arthritis Sensory History: Reports: Hx Cataracts - right eye, Hx Contacts or Glasses - glasses for reading, Hx Macular Degeneration, Hx Vision Problem - Retinal hemorrhage Denies: Hx Deafness, Hx Hearing Aid Opthamlomology History: Reports: Hx Cataracts - right eye, Hx Contacts or Glasses - glasses for reading, Hx Macular Degeneration, Hx Vision Problem - Retinal hemorrhage EENT History: Denies: Hx Deafness Neurological History: Denies: Hx Dementia Psychiatric History: Denies: Hx Schizophrenia - Surgical History Surgery Procedure, Year, and Place: left foot- Surgery for diabetic ulcer. R leg- medical machinery Hx Anesthesia Reactions: No - Immunization History Date of Tetanus Vaccine: UTD Immunizations Up to Date: Yes Infectious Disease History: No Infectious Disease History: Denies: Hx Hepatitis, Hx Human Immunodeficiency Virus (HIV), Traveled Outside the [place] in Last 30 Days - Family History Known Family History: Positive: Cardiac Disease, Hypertension, Diabetes Family History: NO FAMILY H/O GOUT OR RA - Social History Alcohol Use: Occasionally Hx Substance Use: No Substance Use Type: Reports: None Hx Tobacco Use: Yes Smoking Status (MU): Former Smoker Type: Cigarettes Amount Used/How Often: smoked on and off for 15 years less than 1/2ppd Review of Systems Positive: Fever Eyes: Negative ENT: Negative Cardiovascular: Negative Positive: Shortness Of Breath Gastrointestinal: Negative Genitourinary: Negative Positive: Edema Skin: Other Neurological: Negative Psychological: Normal All Other Systems Reviewed And Are Negative: Yes Physical Exam - Summary Physical Exam Summary: Ulcerous wounds to lateral right ankle with purulent discharge and followed her. Erythema and swelling to right lower extremity from knee distally. PMS intact distally. Swelling noted to left lower extremity. PMS intact distally. No obvious deformity, ecchymosis, noted to bilateral feet. No pain with palpation of bilateral feet. Calves soft nontender bilaterally. Lung sounds clear to auscultation bilaterally. RRR. Abdomen soft nontender. Triage Information Reviewed: Yes Vital Signs On Initial Exam: Initial Vitals Temp Pulse Resp BP Pulse Ox 99.2 F 94 18 131/56 98 09/20/18 21:06 09/20/18 21:06 09/20/18 21:06 09/20/18 21:06 09/20/18 21:06 Vital Signs Reviewed: Yes Appearance: Positive: Well-Appearing Skin: Positive: Warm Head/Face: Positive: Normal Head/Face Inspection Eyes: Positive: Normal ENT: Positive: Normal ENT inspection Neck: Positive: Supple Respiratory/Lung Sounds: Positive: Clear to Auscultation Cardiovascular: Positive: Normal Abdomen Description: Positive: Nontender Musculoskeletal: Positive: Normal Neurological: Positive: Normal Psychiatric: Positive: Normal AVPU Assessment: Alert - [place] Coma Scale Best Eye Response: 4 - Spontaneous Best Motor Response: 6 - Obeys Commands Best Verbal Response: 5 - Oriented Coma Scale Total: 15 Diagnostics - Vital Signs Vital Signs Temp Pulse Resp BP Pulse Ox 09/21/18 00:38 96 30 157/78 88 09/21/18 00:15 101 26 94 09/20/18 23:41 100 25 96 09/20/18 23:38 101 19 129/73 97 09/20/18 23:37 95 21 91 09/20/18 21:06 99.2 F 94 18 131/56 98 - Laboratory Result Diagrams: 09/21/18 18:27 09/21/18 18:27 Lab Statement: Any lab studies that have been ordered have been reviewed, and results considered in the medical decision making process. Lower Extremity Course/Dx - Course Course Of Treatment: Patient complains of increasing bilateral foot pain 1 week , wound to right lateral ankle, swelling and erythema to right lower extremity 1 week, SOB 1 day, fever last night up to 103. Denies known trauma to ankle. Patient states that wound has not been evaluated, admits possible purulent discharge. Denies cough, sore throat, CP, N/V/D, abdominal pain, change in urine, change in BM, vaginal symptoms. Medical history is DM 2, HTN, CK D, prior PE, anemia, Charcot foot bilaterally. Afebrile. No antipyretics taken today. Intermittently mildly tachycardic. Intermittently elevated respiratory rate. WBC 23.4. Hgb 10.5 patient baseline. Sodium 132. Creatinine 4.5 somewhat elevated from prior levels. Anion gap 15. Initial troponin 0.07. CRP 392. EKG sinus rhythm, similar to prior. Chest x-ray unremarkable. Bilateral x-ray of feet positive for Charcot. Venous ultrasound of bilateral lower extremities negative for DVT. Admitted to hospitalist. - Diagnoses Provider Diagnoses: Diabetic ulcer of ankle, Grtka-ko-oqncnow kidney injury, Elevated troponin I level, Anemia, Cellulitis, Pedal edema Discharge - Sign-Out/Discharge Documenting (check all that apply): Patient Departure Patient Received Moderate/Deep Sedation with Procedure: No - Discharge Plan Condition: Fair Disposition: ADMITTED TO [facility] - Billing Disposition and Condition Condition: FAIR Disposition: Admitted to [facility]
[2018-09-21 01:26] LABS: Urine Appearance Cloudy; Urine Bacteria 3+ (Absent); Urine Bilirubin Negative (Negative); Urine Blood 2+ (Negative); Urine Color Yellow; Urine Glucose Negative (Negative); Urine Ketones Negative (Negative); Urine Nitrite Negative (Negative); Urine Protein 3+(>=500 mg/dL) (Negative); Urine Red Blood Cell 3+(>10/hpf) (Absent); Urine Specific Gravity 1.013 (1.010-1.030); Urine Squamous Epithelial Cell Present (Absent); Urine Urobilinogen Negative (Negative); Urine White Blood Cell 3+(>20/hpf) (Absent)
[2018-09-21 01:52] LABS: INR 1.43 (0.82-1.09)
[2018-09-21 02:23] LABS: Hematocrit 33 % (35-47); Hemoglobin 10.5 g/dL (12.0-16.0); Mean Corpuscular HGB Conc 32 g/dL (31-36); Mean Corpuscular Hemoglobin 25 pg (27-31); Mean Corpuscular Volume 80 fL (80-97); Platelet Count 228 10^3/uL (150-450); Red Blood Count 4.15 10^6 /uL (3.70-4.87); Red Cell Distribution Width 16 % (10-15); White Blood Count 23.4 10^3/uL (3.5-10.8)
[2018-09-21 02:39] LABS: ALT 9 U/L (7-52); AST 21 U/L (13-39); Albumin 3.5 g/dL (3.2-5.2); Albumin/Globulin Ratio 0.8 (1-3); Alkaline Phosphatase 92 U/L (34-104); Anion Gap 15 mmol/L (2-11); BUN/Creatinine Ratio 14.2 (8-20); Blood Urea Nitrogen 64 mg/dL (6-24); C Reactive Protein 392.05 mg/L (<8.01); CO2 Carbon Dioxide 22 mmol/L (22-32); Chloride 95 mmol/L (101-111); Globulin 4.5 g/dL (2-4); Glucose 117 mg/dL (70-100); Potassium 3.8 mmol/L (3.5-5.0); Sodium 132 mmol/L (135-145)
[2018-09-21 02:42] LABS: Troponin I 0.07 ng/mL (<0.04)
[2018-09-21 03:04] LABS: ABS Monocytes 1.2 10^3/ul (0-0.8); ABS Neutrophils 21.2 10^3/ul (1.5-7.7); Lymphocyte % 4.2 %; Nucleated Red Blood Cells % 0.1
[2018-09-21] MEDS ORDERED: NS 0.9% 1000 ML** 1,000 ML IV ONE ×2 (03:05)
[2018-09-21] MEDS ORDERED: Vancomycin(*) 1,000 MG in NS 0.9% 250 ML* 250 ML IVPB ONE (05:29)
[2018-09-21] MEDS ORDERED: Piperacillin/Tazobac ADVAN(*) 3.375 GM in NS 0.9% 100 ML* 100 ML IVPB ONE (05:30)
[2018-09-21] MEDS: Acetaminophen TAB* 325 MG PO PRN ×2 (05:57→21:43)
[2018-09-21] MEDS ORDERED: Zosyn per Pharmacy* NOTE FOLLOW UP SCH (06:00)
[2018-09-21] MEDS ORDERED: Cholecalciferol TAB* 1000 UNITS PO SCH (06:00)
[2018-09-21 07:12] LABS: ABS Lymphocytes 0.9 10^3/ul (1.0-4.8); ABS Monocytes 1.4 10^3/ul (0-0.8); ABS Neutrophils 19.6 10^3/ul (1.5-7.7); Eosinophil % 0.1 %; Hematocrit 28 % (35-47); Hemoglobin 9.2 g/dL (12.0-16.0); Lymphocyte % 4.2 %; Mean Corpuscular HGB Conc 33 g/dL (31-36); Mean Corpuscular Hemoglobin 26 pg (27-31); Mean Corpuscular Volume 80 fL (80-97); Mean Platelet Volume 7.9 fL (7.4-10.4); Platelet Count 213 10^3/uL (150-450); Red Blood Count 3.55 10^6 /uL (3.70-4.87); Red Cell Distribution Width 16 % (10-15)
[2018-09-21] MEDS ORDERED: Insulin LISPRO* 1 UNITS UNIT SUBCUT SCH (07:30)
[2018-09-21 07:38] LABS: Troponin I 0.11 ng/mL (<0.04)
[2018-09-21 07:46] LABS: Potassium 3.7 mmol/L (3.5-5.0)
[2018-09-21 07:51] LABS: BUN/Creatinine Ratio 15.3 (8-20); EGFR African American 12.1 (>60)
[2018-09-21] MEDS: Labetalol TAB* 200 MG PO SCH ×2 (08:20→21:52)
[2018-09-21] MEDS: Atorvastatin* 40 MG TAB PO SCH (08:20)
[2018-09-21] MEDS: Sodium Bicarbonate (ANTACID)* 650 MG TAB PO SCH ×2 (08:20→21:56)
[2018-09-21] MEDS: Famotidine TAB* 20 MG PO SCH (08:20)
[2018-09-21] MEDS: Allopurinol TAB* 100 MG PO SCH (08:20)
[2018-09-21] MEDS: Ferrous Gluconate TAB* 324 MG TAB PO SCH ×3 (08:20→21:52)
[2018-09-21] MEDS ORDERED: Furosemide TAB* 20 MG PO SCH (08:30)
--- NOTE | 2018-09-21 10:03 | PN ---
Subjective Date of Service: 09/21/18 Interval History: Patient had right foot ulcer 1 week ago and scab formed, no discharge Noticed right leg pain, developed fever T 104 yesterday thus came to ED. She was wearing a brace barefoot right side. Objective Active Medications: Acetaminophen (Tylenol Tab*) 650 mg PO Q4H PRN PRN Reason: FEVER/PAIN Last Admin: 09/21/18 05:57 Dose: 650 mg Allopurinol (Zyloprim Tab*) 100 mg PO DAILY WITH MEAL [facility] Last Admin: 09/21/18 08:20 Dose: 100 mg Atorvastatin Calcium (Lipitor*) 40 mg PO DAILY [facility] Last Admin: 09/21/18 08:20 Dose: 40 mg Cholecalciferol (Vitamin D Tab*) 50,000 units PO WEEKLY [facility] Famotidine (Pepcid Tab*) 20 mg PO DAILY [facility] Last Admin: 09/21/18 08:20 Dose: 20 mg Ferrous Gluconate (Fergon Tab*) 324 mg PO TID [facility] Last Admin: 09/21/18 08:20 Dose: 324 mg Piperacillin Sod/Tazobactam (Sod 3.375 gm/ Sodium Chloride) 100 mls @ 25 mls/ hr IVPB Q12H [facility] Heparin Sodium/Dextrose (Heparin Drip 25,000 Units(*)) 25,000 units in 500 mls @ 0 mls/hr IV PER RATE [facility]; Protocol Sodium Chloride (Ns 0.9% 1000 Ml) 1,000 mls @ 50 mls/hr IV .PER RATE [facility] Insulin Human Lispro (Humalog*) 0 units SUBCUT ACHS [facility]; Protocol Labetalol HCl (Trandate Tab*) 200 mg PO BID [facility] Last Admin: 09/21/18 08:20 Dose: 200 mg Non-Formulary Medication (Semaglutide [Ozempic]) 0.25 units INJ WEEKLY [facility] Pharmacy Consult (Zosyn Per Pharmacy*) 1 note FOLLOW UP .ZOSYN PER PHARMACY [facility] Sodium Bicarbonate (Sodium Bicarbonate (Antacid)*) 325 mg PO BID [facility] Last Admin: 09/21/18 08:20 Dose: 325 mg Vital Signs - 8 hr 09/21/18 09/21/18 09/21/18 02:50 03:00 03:08 Temperature Pulse Rate 106 99 97 Respiratory 25 29 25 Rate Blood Pressure 118/61 159/76 (mmHg) O2 Sat by Pulse 95 92 98 Oximetry 09/21/18 09/21/18 09/21/18 03:38 04:00 04:08 Temperature Pulse Rate Respiratory 27 21 13 Rate Blood Pressure 106/61 136/71 (mmHg) O2 Sat by Pulse Oximetry 09/21/18 09/21/18 09/21/18 04:38 05:00 05:08 Temperature Pulse Rate Respiratory 32 32 28 Rate Blood Pressure 96/48 111/56 (mmHg) O2 Sat by Pulse Oximetry 09/21/18 09/21/18 09/21/18 05:30 05:54 06:00 Temperature 100.5 F Pulse Rate 96 98 97 Respiratory 32 22 32 Rate Blood Pressure 127/63 106/65 (mmHg) O2 Sat by Pulse 96 97 Oximetry 09/21/18 09/21/18 09/21/18 06:08 06:16 06:38 Temperature 100.5 F Pulse Rate 97 100 99 Respiratory 32 26 28 Rate Blood Pressure 127/63 127/63 113/66 (mmHg) O2 Sat by Pulse 97 97 98 Oximetry 09/21/18 09/21/18 07:00 09:12 Temperature 98.4 F Pulse Rate 100 95 Respiratory 21 20 Rate Blood Pressure 111/39 (mmHg) O2 Sat by Pulse 98 100 Oximetry Oxygen Devices in Use Now: Nasal Cannula Result Diagrams: 09/21/18 06:55 09/21/18 06:55 Assess/Plan/Problems-Billing Assessment:
[2018-09-21] MEDS: ZOSYN 3.375 GM Q12H per EXTENDED INFUSION IVPB SCH ×4 (10:16→22:15)
[2018-09-21] MEDS: NS 0.9% 1000 ML** 1,000 ML IV SCH (10:16)
--- NOTE | 2018-09-21 10:29 | HP ---
CC: Deborah Pastor MD HISTORY AND PHYSICAL: DATE OF ADMISSION: 09/21/18 PRIMARY CARE PHYSICIAN: Deborah Pastor MD. CHIEF COMPLAINT: Pain in the right heel with ulceration. HISTORY OF PRESENT ILLNESS: This is a 58-year-old female with past medical history of chronic anemia , bilateral Charcot foot; status post surgeries on both feet, uses orthotics, and follows with Dr. April hernandez in orthopedics. She came in due to worsening pain in the right heel, especially in the lateral aspect of the foot. The patient stated that she had a fever of 104 in the house, but that had resolve d before coming to the ER. She, otherwise, denies any chest pain, shortness of breath, abdominal rebekah n. She did have some mild nausea and some abdominal pain, but that had resolved since coming to the ER. Denies any constipation and her main concern is the pain that is around the right ankle and ulce r area. PAST MEDICAL HISTORY: As mentioned, diabetes, Charcot foot with bilateral foot surgeries, chronic an emia, hyperlipidemia, history of DVT and PE'; on Coumadin, osteoarthritis, hypertension, chronic kidn ey disease stage 4 to 5; not on dialysis yet. PAST SURGICAL HISTORY: She has had bilateral cataract extractions, right ankle surgery with christa and pinning, and left foot surgery for diabetic ulcer. DOCUMENTED HOME MEDICATIONS: The patient is currently on: 1. Allopurinol 100 mg oral daily with meals. 2. Furosemide 20 mg oral daily with meals. 3. Ozempic 0.25 mg injection weekly. 4. Tylenol 650 mg p.o. q.4 hours p.r.n. 5. Vitamin D3 at 50,000 units weekly. 6. Ferrous gluconate 325 mg p.o. t.i.d. 7. Famotidine 20 mg oral daily. 8. Rosuvastatin 20 mg oral daily. 9. Labetalol 200 mg oral twice a day. 10. Coreg 5 mg oral daily. 11. Sodium bicarbonate 325 mg oral b.i.d. ALLERGIES: No known drug allergies. FAMILY HISTORY: Mother at age 67 due to complications of anesthesia. Father of unknown re ason. SOCIAL HISTORY: The patient is a full code. 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 REVIEW OF SYSTEMS: A 14-point review of systems did not reveal any information, other than what is s tated in the HPI. PHYSICAL EXAMINATION GENERAL: The patient is awake, alert, and oriented x3. VITAL SIGNS: In the ER, BP is noted to be 163/81, heart rate 106, respiration rate 32, saturating 98 % on room air, temperature was documented at 99.2. HEAD AND NECK: Atraumatic, normocephalic. Bilateral pupils were reactive to light. Oral mucosa was moist. Neck supple. No jugular venous distention. LUNGS: Clear to auscultation bilaterally. No wheezing, rhonchi, or rales. HEART: S1, S2. Regular rate and rhythm. ABDOMEN: Obese, soft, nontender, nondistended. EXTREMITIES: The patient had Charcot I changes on both feet with an ulcer on the lateral aspect of t he right foot and also on the medial aspect. There was no obvious drainage from this ulcer site that I could appreciate. DIAGNOSTIC STUDIES/LAB DATA: CBC shows elevated white count of 23.4, hemoglobin and hematocrit stab le, platelet count is stable. Coagulation profile shows subtherapeutic INR at 1.43. Comprehensive m etabolic panel shows minimally elevated troponin at 0.07. C-reactive protein is elevated at 392. La ctic acid was normal. BNP was noted to be normal at 64. Sodium was minimally decreased at 132. EKG showed sinus rhythm at 88 beats per minute without any ST elevation. Chest x-ray did not reveal any obvious congestive changes. Some haziness was noted, but that was lik john due to the patient's body habitus. Official read by radiology is still pending. X-ray of the fo ot, I could not appreciate any obvious osteomyelitis. We will wait for the official read to see if t here was any osteomyelitic changes. Venous Doppler showed no bilateral lower extremity deep venous thrombosis noted. IMPRESSION: This is a 58-year-old female with Charcot foot, diabetes, hyperlipidemia, hypertension, and chronic kidney disease stage 4/5 here due to elevated white count and pain in the right foot and with some ulceration; likely sepsis secondary to diabetic foot, questionable urinary tract infection given the patient's urinalysis also shows leukocyte esterase positivity, although the patient herself denies any urinary burning sensation or pain with urination. ASSESSMENT AND PLAN: 1. Sepsis, likely secondary to diabetic foot ulcer, questionable osteomyelitis, questionable urinary tract infection. For now, we will start the patient on broad- spectrum antibiotics with vancomycin and Zosyn, endorsed per pharmacy given her renal dysfunction, and follow up blood cultures and x-ray results regarding if the patient would benefit from any further orthopedic evaluation. 2. History of diabetes. I will start the patient on insulin sliding scale and hold home diabetic me dications and I will also start the patient on fingerstick monitoring a.c. and at bedtime. 3. History of hypertension. Restart home medications. 4. History of chronic kidney disease. We will hold any nephrotoxic medication. 5. History of hyperlipidemia. Restart home medications. 6. History of DVT, on Coumadin with subtherapeutic INR. We will restart her Coumadin and we will co nsider holding Coumadin if surgeon needs to be involved for any surgical debridement based on the x-r graciela read. [id number]/[facility] #: [id number]
[2018-09-21] MEDS ORDERED: Heparin VIAL(*) 5000 UNITS/ML VIAL (FIVE THOUSAND) IV SCH (11:00)
[2018-09-21] MEDS ORDERED: Vancomycin per Pharmacy* NOTE FOLLOW UP SCH (11:00)
[2018-09-21] MEDS: Heparin DRIP 25,000 UNITS(*) 25,000 UNITS/500 ML BAG IV SCH (12:01)
[2018-09-21] MEDS: Insulin LISPRO* 1 UNITS UNIT SUBCUT SCH ×3 (12:21→21:43)
--- NOTE | 2018-09-21 15:15 | PN ---
Progress Note - Progress Note Date of Service: 09/21/18 Note: Saw patient in consultation today, please see full dictated note for further detail. She has a dry ulceration of the right lateral foot as well as cellulitis of the lower leg. She has charcot arthropathy and follows with Dr Wood. I discussed this case with Dr Jean-Baptiste and have ordered an MRI to further evaluate for abscess or osteo. She should continue IV abx per ID, if ulcer begins to drain it should be cultured. Will follow along with her and make further recommendation once MRI is back.
--- NOTE | 2018-09-21 16:07 | CONS ---
CONSULTATION REPORT: DATE OF CONSULT: 09/21/18 ATTENDING ORTHOPEDIC PROVIDER: Dr Jean-Baptiste PRIMARY CARE PHYSICIAN: Dr. Pastor. CHIEF COMPLAINT: Right foot ulcer. HISTORY OF PRESENT ILLNESS: The patient is a 58-year-old diabetic female with history of Charcot arthropathy. She reports she follows with Dr. Wood as an outpatient. She came into the emergency room with pain of the right lateral foot present over the past week. In the emergency room, she report that she had a fever as high as 104, but in talking with her, denies fever, chills, or recent illness. Due to severe pain with ambulation, assumption that she had broken a bone in the foot brought her to the emergency room. Denies known trauma though has neuropathy of her feet. She does wear a brace on the right leg that has been rubbing on the foot where the ulcer now is. The ulcer has not been draining and has been dry. Pain is described as sharp, aggravated by ambulation and by palpation of the wound. To her knowledge she has had no open wound in this area in the past, she was unaware of the cellulitis of her leg until arrival at the ER. No adverse effects from anesthesia in the past. No history of ID or Stoke. Positive history of DVT and PE. She has required blood transfusion roughly 15 years ago as the result of anticoagulant therapy. PAST MEDICAL HISTORY: Diabetes; Charcot foot; chronic anemia; hyperlipidemia; history of DVT and PE, on Coumadin; osteoarthritis; hypertension; chronic kidney disease. PAST SURGICAL HISTORY: Bilateral cataract extraction and history of ORIF of right ankle. ALLERGIES: No known drug allergies. FAMILY HISTORY: Mother at age 67. Father of unknown cause. SOCIAL HISTORY: No alcohol, smoking, or drug use. REVIEW OF SYSTEMS: General: Denies fever, chills, recent illness. Chest: Denies chest pain. Resp: Denies SOB. ABd: Denies abd pain. Right lower extremity : Positive for pain with bearing weight and with palpation. Neuro: Positive for decreased sensation in bilateral lower extremities. Skin: Positive for cellulitis, the patient unaware until arrival to the emergency room. PHYSICAL EXAM: Vital Signs: Temperature 98.8, heart rate 68, respiratory rate 24, oxygen saturation 98%, blood pressure 136/49. General: The patient is alert. She is nontoxic appearing. HEENT: Normocephalic, atraumatic. Lungs: Normal rate and effort of breathing. Abdomen: Nondistended. Extremities: Bilateral feet Charcot deformity. Right lower extremity, dry quarter-size ulcer on the lateral aspect of the right foot as well as a pea-size ulcer on the dorsomedial surface over the first MTP, both of these are dry without any foul odor or surrounding erythema. She is tender when palpated directly over that lateral ulcer. There is hyperpigmentation of the skin surrounding the lateral ulcer. Able to flex and extend MTPs, ankle, knee and hip without pain. Right lower leg is warm, diffusely tender and erythematous from the ankle to the knee. There is no obvious fluctuant area or localized area of pain throughout the lower leg. The knee is entirely nontender. The patient does have decreased sensation in bilateral feet from ankle distally. Vascular: DP 1 +. DIAGNOSTIC STUDIES/LAB DATA: CBC: WBC 22.0, hemoglobin 9.8, hematocrit 28. Sodium 136, potassium 3.7. Troponin 0.11. GFR is 12.1. Creatinine 4.50. Diagnostic studies: Right foot x-ray, severe Charcot arthropathy. ASSESSMENT NAD PLAN: Cellulitis RLE and ulceration of the right foot. MRI ordered to further evaluate, rule out osteomyelitis and abscess. ABIs ordered as well. I suspect this ulceration is the result of oliverio prominence of the fibula rubbing on her brace, diabetic neuropathy is a contributing factor as well. A1C has been ordered. There was no discharge to culture, if the wound starts to drain please culture. Keep ulcer wrapped with sterile dry dressing. Please continue antibiotics per Infectious Disease. Discussed case with Dr Jean-Baptiste, will review MRI and ABIs once resulted and make further recommendation. NIKIA FUENTES [id number]/[facility] #: [id number] KATELYN
[2018-09-21] MEDS ORDERED: Warfarin TAB(*) 5 MG PO SCH (17:00)
--- NOTE | 2018-09-21 17:00 | CONSULT ---
Subjective Date of Service: 09/21/18 Interval History: Ms. Jon is a 58 yo female with PMH significant for chronic anemia, bilateral charcot foot s/p surgery in the past, DM2, HLD, hx DVT/PE, osteoarthritis, HTN, CKD stage 4-5; who presented to the hospital for pain in the right heel. Presented to the hospital with an ulcer to her right lateral ankle, reports that this has been present for about 2 weeks. She has been treating the wound at home with ABX ointment. Patient seen and examined at bedside. Family History: Unchanged from Admission Social History: Unchanged from Admission Past Medical History: Unchanged from Admission Review of Systems - Measurements Intake and Output: Intake and Output Last 24 Hours 09/19/18 09/20/18 09/21/18 09/22/18 06:59 06:59 06:59 06:59 Intake Total 1000 120 Balance 1000 120 Weight 260 lb 260 lb Intake: IV Fluids 1000 Oral 120 Other: Estimated Void Medium # Bowel Movements 0 # Voids 1 - Review of Systems Constitutional Symptoms: Negative: Fever, Other - Chills Dermatology: Positive: Other - Wound to the right ankle Endocrinology: Positive: Diabetes Mellitus Objective Active Medications: Acetaminophen (Tylenol Tab*) 650 mg PO Q4H PRN Reason: FEVER/PAIN Allopurinol (Zyloprim Tab*) 100 mg PO DAILY WITH MEAL [facility] Atorvastatin Calcium (Lipitor*) 40 mg PO DAILY [facility] Cholecalciferol (Vitamin D Tab*) 50,000 units PO WEEKLY [facility] Famotidine (Pepcid Tab*) 20 mg PO DAILY [facility] Ferrous Gluconate (Fergon Tab*) 324 mg PO TID [facility] Heparin Sodium (Porcine) (Heparin Vial(*)) 0 units IV .PER PROTOCOL [facility] Piperacillin Sod/Tazobactam (Sod 3.375 gm/ Sodium Chloride) 100 mls @ 25 mls/ hr IVPB Q12H [facility] Heparin Sodium/Dextrose (Heparin Drip 25,000 Units(*)) 25,000 units in 500 mls @ 0 mls/hr IV PER RATE [facility]; Protocol Sodium Chloride (Ns 0.9% 1000 Ml) 1,000 mls @ 50 mls/hr IV .PER RATE [facility] Insulin Human Lispro (Humalog*) 0 units SUBCUT ACHS [facility]; Protocol Labetalol HCl (Trandate Tab*) 200 mg PO BID [facility] Non-Formulary Medication (Semaglutide [Ozempic]) 0.25 units INJ WEEKLY [facility] Pharmacy Consult (Zosyn Per Pharmacy*) 1 note FOLLOW UP .ZOSYN PER PHARMACY [facility] Pharmacy Consult (Vancomycin Per Pharmacy*) 1 note FOLLOW UP .VANC PER PHARMACY [facility]; Protocol Pharmacy Consult (Vancomycin Random Level*) 1 note FOLLOW UP 0600 ONE Stop: 09/22/18 06:01 Sodium Bicarbonate (Sodium Bicarbonate (Antacid)*) 325 mg PO BID [facility] Vital Signs - 8 hr 09/21/18 09/21/18 09/21/18 09:12 11:15 16:08 Temperature 98.4 F 98.8 F 98.2 F Pulse Rate 95 68 82 Respiratory 20 24 18 Rate Blood Pressure 111/39 136/49 128/51 (mmHg) O2 Sat by Pulse 100 98 100 Oximetry Oxygen Devices in Use Now: Nasal Cannula Appearance: NAD, laying in bed Ears/Nose/Mouth/Throat: Mucous Membranes Moist Respiratory: Symmetrical Chest Expansion and Respiratory Effort Extremities: - - 1-2+ bilateral DP Skin: - - See skin note below Neurological: Alert and Oriented x 3 Nutrition: Taking PO's Result Diagrams: 09/27/18 05:36 09/27/18 05:36 Additional Lab and Data: Above labs were pulled in to the note, when the note was edited prior to signing. Please see below for labs from the day of the consultation. Laboratory Tests 09/21/18 09/21/18 09/21/18 02:00 06:55 06:55 WBC 22.0 H Hgb 9.2 L Hct 28 L Plt Count 213 Sodium 136 Potassium 3.7 Chloride 100 L Carbon Dioxide 21 L BUN 69 H Creatinine 4.50 H Glucose 119 H C-Reactive Protein 392.05 H Diagnostic Imagin. Exam Date: 09/20/18 2338 - FOOT RIGHT 3+ VWS IMPRESSION: 1. DIFFUSE SOFT TISSUE SWELLING. 2. SEVERE CHARCOT ARTHROPATHY AND POSTSURGICAL CHANGES IN THE HINDFOOT. 3. THE STUDY IS LIMITED IN EVALUATION FOR OSTEOMYELITIS DUE TO THE CHARCOT JOINT CHANGES. Skin Deviation Note - Skin Deviation Findings Right medial ankle - Wound measures 2 cm x 1.5 cm x 0.1 cm. There is undermining at 5 o'clock - 0.2 cm, and 9 o'clock - 0.5 cm. The wound bed is pink granulation tissue. The surrounding skin is intact. There is no drainage. There is a bony prominence noted at the ulcer. Wound Problem/Plan Assessment: Ms. Jon is a 58 yo female with PMH significant for chronic anemia, bilateral charcot foot s/p surgery in the past, DM2, HLD, hx DVT/PE, osteoarthritis, HTN, CKD stage 4-5; who presented to the hospital for pain in the right heel. Presented to the hospital with an ulcer to her right lateral ankle. 1. Right lateral ankle ulcer. Suspect secondary to pressure from the fibula. Recommend applying Iodosorb to the open area, telfa, and rolled gauze. Change the dressing every 3 days. Keep pressure off the area. Recommend checking MRI to eval for osteomyelitis. Also recommend getting ABIs to eval circulation prior to a surgical procedure. Will check a HgA1C. 2. DM2. Last HgA1C in the EMR was 7.6 in 10/2017. Will add to last labs drawn here. Maintain good glycemic control to allow for wound healing. 3. Diet. Consistent Carbohydrate. 4. Code Status. Full Code Status. Is Patient a Wound Clinic Patient: No Counseling and/or Coordination of Care Minutes: 20 Points of Discussion: Time for this wound consultation was 20 minutes and 10 minutes was spent with the patient discussing past medical history; assessing, measuring, and photographing the wound. Attending: Honey Acharya
--- NOTE | 2018-09-21 17:19 | PN ---
Hospitalist Progress Note Date of Service: 09/21/18 Attending update: This is a 58 year old woman with history of diabetes, unprovoked DVT/PE, and charcot foot who presented to the ED yesterday with fevers and was found to have sepsis and RLE cellulitis # sepsis likely caused by right lower extremity cellulitis compartments are soft, pulses are okay no infected ulcer, but one dry ulcer on the lateral surface of the foot cannot rule out osteomyelitis continue broad spectrum abx follow up blood cultures consult ortho; may need MRI but will await ortho's input # UTI covered by pip/tazo # CORTNEY on CKD likely related to sepsis continue volume resuscitation # nstemi likely demand in setting of sepsis; no chest pain, no EKG changes # PE on warfarin with subtherapeutic INR she has had several unprovoked DVT/PE, so needs to be bridged anyway, and she may need a surgical procedure on this admission, so will hold warfarin and start heparin drip
[2018-09-21 18:39] LABS: Hematocrit 29 % (35-47); Hemoglobin 9.4 g/dL (12.0-16.0); Mean Corpuscular HGB Conc 32 g/dL (31-36); Mean Corpuscular Hemoglobin 26 pg (27-31); Mean Corpuscular Volume 80 fL (80-97); Mean Platelet Volume 8.2 fL (7.4-10.4); Platelet Count 202 10^3/uL (150-450); Red Blood Count 3.63 10^6 /uL (3.70-4.87); Red Cell Distribution Width 16 % (10-15); White Blood Count 23.2 10^3/uL (3.5-10.8)
[2018-09-21 18:55] LABS: BUN/Creatinine Ratio 15.6 (8-20); Calcium 9.4 mg/dL (8.6-10.3); EGFR African American 11.2 (>60); EGFR Non-African American 9.2 (>60)
[2018-09-21 19:00] LABS: Potassium 3.8 mmol/L (3.5-5.0)
--- NOTE | 2018-09-21 19:05 | PN ---
Subjective Date of Service: 09/21/18 Interval History: Patient noticed to have abrasion on her right foot 1 week ago, and it turned into scab after that, no discharge noted. She also started to notice right leg pain in the past 1 week, and spiked fever T 104 yesterday, thus she came to ED. Patient felt sick this morning with high fever overnight, complaining of right leg pain. Labs noted, high WBC and CRP, Pyuria in urinalysis Objective Active Medications: Acetaminophen (Tylenol Tab*) 650 mg PO Q4H PRN PRN Reason: FEVER/PAIN Last Admin: 09/21/18 05:57 Dose: 650 mg Allopurinol (Zyloprim Tab*) 100 mg PO DAILY WITH MEAL [facility] Last Admin: 09/21/18 08:20 Dose: 100 mg Atorvastatin Calcium (Lipitor*) 40 mg PO DAILY [facility] Last Admin: 09/21/18 08:20 Dose: 40 mg Cholecalciferol (Vitamin D Tab*) 50,000 units PO WEEKLY [facility] Famotidine (Pepcid Tab*) 20 mg PO DAILY [facility] Last Admin: 09/21/18 08:20 Dose: 20 mg Ferrous Gluconate (Fergon Tab*) 324 mg PO TID [facility] Last Admin: 09/21/18 13:46 Dose: 324 mg Heparin Sodium (Porcine) (Heparin Vial(*)) 0 units IV .PER PROTOCOL [facility] Piperacillin Sod/Tazobactam (Sod 3.375 gm/ Sodium Chloride) 100 mls @ 25 mls/ hr IVPB Q12H [facility] Last Admin: 09/21/18 10:16 Dose: 25 mls/hr Heparin Sodium/Dextrose (Heparin Drip 25,000 Units(*)) 25,000 units in 500 mls @ 0 mls/hr IV PER RATE [facility]; Protocol Last Admin: 09/21/18 12:01 Dose: 29 mls/hr Sodium Chloride (Ns 0.9% 1000 Ml) 1,000 mls @ 50 mls/hr IV .PER RATE [facility] Last Admin: 09/21/18 10:16 Dose: 50 mls/hr Insulin Human Lispro (Humalog*) 0 units SUBCUT ACHS [facility]; Protocol Last Admin: 09/21/18 16:44 Dose: 2 units Labetalol HCl (Trandate Tab*) 200 mg PO BID [facility] Last Admin: 09/21/18 08:20 Dose: 200 mg Non-Formulary Medication (Semaglutide [Ozempic]) 0.25 units INJ WEEKLY [facility] Pharmacy Consult (Zosyn Per Pharmacy*) 1 note FOLLOW UP .ZOSYN PER PHARMACY [facility] Pharmacy Consult (Vancomycin Per Pharmacy*) 1 note FOLLOW UP .VANC PER PHARMACY [facility]; Protocol Pharmacy Consult (Vancomycin Random Level*) 1 note FOLLOW UP 0600 ONE Stop: 09/22/18 06:01 Sodium Bicarbonate (Sodium Bicarbonate (Antacid)*) 325 mg PO BID [facility] Last Admin: 09/21/18 08:20 Dose: 325 mg Vital Signs - 8 hr 09/21/18 09/21/18 11:15 16:08 Temperature 98.8 F 98.2 F Pulse Rate 68 82 Respiratory 24 18 Rate Blood Pressure 136/49 128/51 (mmHg) O2 Sat by Pulse 98 100 Oximetry Oxygen Devices in Use Now: Nasal Cannula Exam: Sick looking, able to converse Morbid obese Heart: normal S1S2 Lung: clear Abdomen: soft Extremity: right LL swelling and redness around anterior tibula area and spreading to calve, warmness from anterior tibular areas up to thigh. bilateral foot deformity changes noted. Right ankle abrasion with scab noted, no discharge , base clean, not warm. 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 - Patient Problems (1) Sepsis Current Visit: Yes Status: Acute Comment: - Due to right cellulits, cannot rule out right foot osteomyelitis - start on zosyn and vancomycin in view of severe sepsis and potential MRSA - bld culture pending - consulted ortho today, MRI and potential surgery (2) Cellulitis Current Visit: Yes Status: Acute Code(s): L03.90 - CELLULITIS, UNSPECIFIED SNOMED Code(s): 478809228 Comment: As described above (3) UTI (urinary tract infection) Current Visit: Yes Status: Acute Comment: Pyuria but urine culture neg (4) Troponin level elevated Current Visit: Yes Status: Acute Code(s): R74.8 - ABNORMAL LEVELS OF OTHER SERUM ENZYMES SNOMED Code(s): 831518084 Comment: Likely demand due to sepsis No ECG changes, no chest pain (5) CORTNEY (acute kidney injury) Current Visit: Yes Status: Acute Code(s): N17.9 - ACUTE KIDNEY FAILURE, UNSPECIFIED SNOMED Code(s): 36584803 Comment: CORTNEY on top of CKD potential dehydration due to sepsis state, hydrate pt currently (6) DVT prophylaxis Current Visit: No Status: Acute Code(s): MHA3325 - SNOMED Code(s): 888587276 Comment: -As above (7) Diabetes mellitus Current Visit: No Status: Acute Code(s): E11.9 - TYPE 2 DIABETES MELLITUS WITHOUT COMPLICATIONS SNOMED Code(s): 72822994 Comment: - just started GLP-1 one week before admission - complained of nausea with new med - put on sliding scale while inpatient (8) Hypertension Current Visit: No Status: Acute Code(s): I10 - ESSENTIAL (PRIMARY) HYPERTENSION SNOMED Code(s): 34880419 Comment: - Continue labetelol and lasix, stable (9) Pulmonary thromboembolism Current Visit: No Status: Acute Code(s): I26.99 - OTHER PULMONARY EMBOLISM WITHOUT ACUTE COR PULMONALE SNOMED Code(s): 653435719 Comment: history of PE on long term care social worker coumadin (10) Subtherapeutic international normalized ratio (INR) Current Visit: Yes Status: Acute Code(s): R79.1 - ABNORMAL COAGULATION PROFILE SNOMED Code(s): 402821770 Comment: - INR not reaching 2 on adm - convert to therapeutic dose of heparin in view of potential operation - may need outpt warfarin dose adjustment outpt Status and Disposition: Inpatient medicine Attestation Documenting Resident: Elisabeth Morales Supervising Physician: Mayelin Andersen Attestation: This service has been performed in part by a resident under the direction of a teaching physician.I, Mayelin Andersen, performed the service, or was physically present during the critical, or thakur portions of the service, furnished by the resident. I participated in the management of the patient.
[2018-09-21 19:31] LABS: ABS Basophils 0.1 10^3/ul (0-0.2); ABS Eosinophils 0.2 10^3/ul (0-0.6); ABS Lymphocytes 0.8 10^3/ul (1.0-4.8); ABS Monocytes 1.2 10^3/ul (0-0.8); ABS Neutrophils 20.9 10^3/ul (1.5-7.7); Eosinophil % 0.9 %; Lymphocyte % 3.5 %
[2018-09-21] MEDS: traMADol TAB* 50 MG PO PRN (21:43)
[2018-09-22] MEDS ORDERED: Vancomycin Random Level* NOTE FOLLOW UP ONE (06:00)
[2018-09-22] MEDS: traMADol TAB* 50 MG PO PRN ×2 (06:38→21:49)
[2018-09-22] MEDS: Acetaminophen TAB* 325 MG PO PRN ×2 (06:38→21:50)
[2018-09-22 06:43] LABS: ABS Eosinophils 0.2 10^3/ul (0-0.6); ABS Lymphocytes 1.3 10^3/ul (1.0-4.8); ABS Monocytes 1.2 10^3/ul (0-0.8); ABS Neutrophils 14.9 10^3/ul (1.5-7.7); Eosinophil % 1.1 %; Hematocrit 26 % (35-47); Hemoglobin 8.5 g/dL (12.0-16.0); Lymphocyte % 7.5 %; Mean Corpuscular HGB Conc 33 g/dL (31-36); Mean Corpuscular Hemoglobin 26 pg (27-31); Mean Corpuscular Volume 80 fL (80-97); Mean Platelet Volume 7.8 fL (7.4-10.4); Nucleated Red Blood Cells % 0.1; Platelet Count 197 10^3/uL (150-450); Red Blood Count 3.27 10^6 /uL (3.70-4.87); Red Cell Distribution Width 16 % (10-15); White Blood Count 17.6 10^3/uL (3.5-10.8)
[2018-09-22 07:04] LABS: BUN/Creatinine Ratio 15.6 (8-20); EGFR African American 11.4 (>60); EGFR Non-African American 9.4 (>60); Potassium 3.1 mmol/L (3.5-5.0)
[2018-09-22 07:32] LABS: Vancomycin Random 6.5 mcg/mL
[2018-09-22] MEDS: Atorvastatin* 40 MG TAB PO SCH (08:11)
[2018-09-22] MEDS: Allopurinol TAB* 100 MG PO SCH (08:11)
[2018-09-22] MEDS: Ferrous Gluconate TAB* 324 MG TAB PO SCH ×3 (08:11→22:30)
[2018-09-22] MEDS: Sodium Bicarbonate (ANTACID)* 650 MG TAB PO SCH ×2 (08:11→21:51)
[2018-09-22] MEDS: Heparin DRIP 25,000 UNITS(*) 25,000 UNITS/500 ML BAG IV SCH (08:11)
[2018-09-22] MEDS: Labetalol TAB* 200 MG PO SCH ×2 (08:11→21:50)
[2018-09-22] MEDS: Famotidine TAB* 20 MG PO SCH (08:11)
[2018-09-22] MEDS: Insulin LISPRO* 1 UNITS UNIT SUBCUT SCH ×4 (08:14→22:06)
[2018-09-22] MEDS ORDERED: Vancomycin(*) 1,500 MG in NS 0.9% 250 ML* 250 ML IVPB ONE (10:00)
--- NOTE | 2018-09-22 12:04 | PN ---
Progress Note - Progress Note Date of Service: 09/22/18 SOAP: Subjective: []Pt seen at bedside. RLE less painful than yesterday. Denies feeling of fever or chills. Objective: []Gen: NAD, nontoxic appearing RLE: Right lateral foot with quarter sized ulceration with expressible purulence which was cultured today. No erythema surrounding the ulcer. 4x4 and kerlix placed over the wound. Erythema ankle to knee, diffusely tender over the calf. No pain with PROM MTPs, ankle, knee or hip. Assessment: []Infected ulcer right lateral foot Plan: []Continue IV abx per ID - zosyn Right foot wound cultured - sent for culture and gram stain CT right lower leg r/o abscess in calf Keep wound covered with a dry sterile dressing Discussed with Dr Jean-Baptiste, as long as patient is medically optimized he will bring the patient to OR tomorrow for RLE I&D lateral foot wound and partial excision of the fibula. Patient is agreeable to this procedure. NPO at midnight, heparin drip will need to be stopped before the procedure, timing of this per medicine ABIs IMPRESSION: 1. Normal ankle/brachial indices measuring 1.09 on the right and 1.13 on the left. 2. Normal waveforms with no evidence of hemodynamically significant stenosis. 3. Left great toe pressure is 140 with an index of 0.86. MRI RLE IMPRESSION: POSTSURGICAL CHANGES AND FINDINGS MOST CONSISTENT WITH CHARCOT ARTHROPATHY IN THE HINDFOOT NOTED. THERE IS MILD BONE MARROW EDEMA IN THE SURROUNDING BONES LIKELY RELATED TO THE CHARCOT ARTHROPATHY ALTHOUGH OSTEOMYELITIS CANNOT BE EXCLUDED. Laboratory Last Values WBC 17.6 10^3/uL (3.5-10.8) H 09/22/18 06:32 RBC 3.27 10^6 /uL (3.70-4.87) L 09/22/18 06:32 Hgb 8.5 g/dL (12.0-16.0) L 09/22/18 06:32 Hct 26 % (35-47) L 09/22/18 06:32 MCV 80 fL (80-97) 09/22/18 06:32 MCH 26 pg (27-31) L 09/22/18 06:32 MCHC 33 g/dL (31-36) 09/22/18 06:32 RDW 16 % (10-15) H 09/22/18 06:32 Plt Count 197 10^3/uL (150-450) 09/22/18 06:32 MPV 7.8 fL (7.4-10.4) 09/22/18 06:32 Neut % (Auto) 84.5 % 09/22/18 06:32 Lymph % (Auto) 7.5 % 09/22/18 06:32 Glades % (Auto) 6.8 % 09/22/18 06:32 Eos % (Auto) 1.1 % 09/22/18 06:32 Baso % (Auto) 0.1 % 09/22/18 06:32 Absolute Neuts (auto) 14.9 10^3/ul (1.5-7.7) H 09/22/18 06:32 Absolute Lymphs (auto) 1.3 10^3/ul (1.0-4.8) 09/22/18 06:32 Absolute Monos (auto) 1.2 10^3/ul (0-0.8) H 09/22/18 06:32 Absolute Eos (auto) 0.2 10^3/ul (0-0.6) 09/22/18 06:32 Absolute Basos (auto) 0.0 10^3/ul (0-0.2) 09/22/18 06:32 Absolute Nucleated RBC 0.0 10^3/ul 09/22/18 06:32 Nucleated RBC % 0.1 09/22/18 06:32 INR (Anticoag Therapy) 1.43 (0.82-1.09) H 09/21/18 01:34 APTT 63.9 seconds (26.0-38.0) H 09/22/18 00:21 Sodium 134 mmol/L (135-145) L 09/22/18 06:32 Potassium 3.1 mmol/L (3.5-5.0) L 09/22/18 06:32 Chloride 98 mmol/L (101-111) L 09/22/18 06:32 Carbon Dioxide 22 mmol/L (22-32) 09/22/18 06:32 Anion Gap 14 mmol/L (2-11) H 09/22/18 06:32 BUN 74 mg/dL (6-24) H 09/22/18 06:32 Creatinine 4.75 mg/dL (0.51-0.95) H 09/22/18 06:32 Est GFR ( Amer) 11.4 (>60) 09/22/18 06:32 Est GFR (Non-Af Amer) 9.4 (>60) 09/22/18 06:32 BUN/Creatinine Ratio 15.6 (8-20) 09/22/18 06:32 Glucose 101 mg/dL (70-100) H 09/22/18 06:32 POC Glucose (mg/dL) 132 mg/dL (70-100) H 09/22/18 11:20 Hemoglobin A1c 7.5 % (4.0-5.6) H 09/21/18 06:55 Lactic Acid 1.1 mmol/L (0.5-2.0) 09/21/18 02:00 Calcium 9.0 mg/dL (8.6-10.3) 09/22/18 06:32 Total Bilirubin 0.70 mg/dL (0.2-1.0) 09/21/18 02:00 AST 21 U/L (13-39) 09/21/18 02:00 ALT 9 U/L (7-52) 09/21/18 02:00 Alkaline Phosphatase 92 U/L (34-104) 09/21/18 02:00 Troponin I 0.03 ng/mL (<0.04) 09/21/18 10:21 C-Reactive Protein 392.05 mg/L (<8.01) H 09/21/18 02:00 B-Natriuretic Peptide 64 pg/mL (<=100) 09/21/18 02:00 Total Protein 8.0 g/dL (6.4-8.9) 09/21/18 02:00 Albumin 3.5 g/dL (3.2-5.2) 09/21/18 02:00 Globulin 4.5 g/dL (2-4) H 09/21/18 02:00 Albumin/Globulin Ratio 0.8 (1-3) L 09/21/18 02:00 Urine Color Yellow 09/21/18 01:08 Urine Appearance Cloudy 09/21/18 01:08 Urine pH 5.0 (5-9) 09/21/18 01:08 Ur Specific [place] 1.013 (1.010-1.030) 09/21/18 01:08 Urine Protein 3+(>=500 mg/dl) (Negative) A 09/21/18 01:08 Urine Ketones Negative (Negative) 09/21/18 01:08 Urine Blood 2+ (Negative) A 09/21/18 01:08 Urine Nitrate Negative (Negative) 09/21/18 01:08 Urine Bilirubin Negative (Negative) 09/21/18 01:08 Urine Urobilinogen Negative (Negative) 09/21/18 01:08 Ur Leukocyte Esterase 2+ (Negative) A 09/21/18 01:08 Urine WBC (Auto) 3+(>20/hpf) (Absent) A 09/21/18 01:08 Urine RBC (Auto) 3+(>10/hpf) (Absent) A 09/21/18 01:08 Ur Squamous Epith Cells Present (Absent) A 09/21/18 01:08 Urine Bacteria 3+ (Absent) A 09/21/18 01:08 Hyaline Casts Present (Absent) A 09/21/18 01:08 Urine Glucose Negative (Negative) 09/21/18 01:08 Random Vancomycin 6.5 mcg/mL 09/22/18 06:32 Vital Signs Temp 98.3 F 09/22/18 11:23 Pulse 62 09/22/18 11:23 Resp 16 09/22/18 11:23 BP 134/54 09/22/18 11:23 Pulse Ox 100 09/22/18 11:23 Intake & Output 09/21/18 09/22/18 09/22/18 18:59 06:59 18:59 Intake Total 485 935 Balance 485 935 Weight 256 lb 12.8 oz Intake: IV Fluids 104 NS 104 IVPB 150 NS 150 Heparin 161 305 Oral 220 480 Other: Estimated Void Medium Medium # Bowel Movements 0 Estimated Stool Amount Small # Voids 1 2
--- NOTE | 2018-09-22 12:15 | CONS ---
CONSULTATION REPORT: DATE OF CONSULT: 09/22/18 REQUESTING PROVIDER: Dr. Wood. CONSULTING SERVICE: Infectious Diseases. REASON FOR CONSULTATION: Right leg cellulitis. IMPRESSION: 1. Right leg cellulitis which seems to spare the right lateral foot callus, which is open and does not appear to be grossly infected. 2. MRI showed Charcot arthropathy in the right ankle and foot and no osteomyelitis detected. 3. Stage 5 chronic kidney disease. 4. Gout. 5. History of deep venous thrombosis and pulmonary embolism, on anticoagulation. 6. History of right ankle surgery. RECOMMENDATIONS: We will continue Zosyn and stop the vancomycin. Usually, this type of infection would be group A streptococcus, which Zosyn should cover. Follow her exam here. Orthopedics is following as well. She may need some help with her right foot orthotic which may be rubbing on the lateral midfoot causing that callus. HISTORY OF PRESENT ILLNESS: This is a 58-year-old woman with bilateral Charcot arthropathy admitted with right leg swelling and pain. It came on over the last couple of days. She developed fevers and chills. She came to the hospital on 09/20/18. She was febrile to 38 degrees. Her white count was 23, 000. She was started on vancomycin and Zosyn, which she has been tolerating well. The pain, redness, and swelling is easing a little bit in the right leg. She does not note right ankle pain today with movement. She has a lateral midfoot ulceration and callus. She follows with a equine internship about that. She uses a foot brace that she thinks wears on that area. She had an MRI here that showed Charcot changes, no other findings suggestive of osteomyelitis. PAST MEDICAL HISTORY: 1. Insulin-dependent diabetes with peripheral neuropathy. 2. Charcot arthropathy, bilateral feet. 3. Stage 5 chronic kidney disease. 4. Anemia. 5. History of DVT and PE, on Coumadin. 6. Osteoarthritis. 7. Hypertension. ALLERGIES: No known drug allergies. MEDICATIONS: 1. Tylenol. 2. Allopurinol. 3. Lipitor. 4. Famotidine. 5. Ferrous gluconate. 6. Heparin infusion. 7. Zosyn 3.375 g every 12 hours. 8. Vancomycin. 9. Sodium bicarbonate. 10. Tramadol as needed. SOCIAL HISTORY: She lives by herself. She has no pets, no travel, no sick contacts. She is a nonsmoker. FAMILY HISTORY: Mother at 67 with complications of anesthesia. Father of unknown reason and age. REVIEW OF SYSTEMS: All negative except as noted above for 12-point review of systems. PHYSICAL EXAM: Vital Signs: Temperature 37, heart rate 60, respiratory rate 20 , blood pressure 118/50, oxygen saturation 95% on 2 L via nasal cannula. In general, she is awake, not in distress. Neurologic: She is oriented x3. Follows all commands. Sensation is decreased to light touch in both feet. HEENT: There is no conjunctival hemorrhage. Oropharynx without lesions. Neck is supple without mass. Heart is regular rate and rhythm without murmurs, rubs, or gallops. Lungs are clear to auscultation bilaterally. Abdomen: Soft, nontender, nondistended. Bowel sounds present. Skin: There is diffuse erythematous patches which are blanching on the right lower leg above the ankle and below the knee. There is no fluctuance or crepitus or wound. On the right lateral midfoot, there is a callus with an open wound, no expressible fluid, no surrounding erythema. Musculoskeletal: There is no spine tenderness to palpation. There is no right ankle tenderness to palpation. DIAGNOSTIC STUDIES/ LAB DATA: Creatinine 4.7, potassium 3.1. White blood cell count 17, hemoglobin 8.5, platelets 197. Please see impressions and recommendations outlined above. Thank you for asking me to see Ms. Jon in consultation. [id number]/[facility] #: [id number] MTDD
[2018-09-22] MEDS: ZOSYN 3.375 GM Q12H per EXTENDED INFUSION IVPB SCH ×4 (12:21→21:57)
[2018-09-22] MEDS ORDERED: Potassium Chlor TAB* 20 MEQ TAB.ER PO ONE (12:46)
--- NOTE | 2018-09-22 12:50 | PN ---
<Elisabeth Morales - Last Filed: 09/22/18 19:20> Subjective Date of Service: 09/22/18 Interval History: Patient feels much better today. Pain improved on right leg. No more fever overnight. Noticed Ortho plan of amputation tomorrow Preop assessment mod-high cardiac risk surgery No heart history including heart attack No history of stroke Able to climb stairs and go to grocery by herself before this adm Had general anesthesia before, no complications of anesthesia Last dose of warfarin 09/20, converted to heparin yesterday Trop mildly elevated but ECG no changes Objective Active Medications: Acetaminophen (Tylenol Tab*) 650 mg PO Q4H PRN PRN Reason: FEVER/PAIN Last Admin: 09/22/18 06:38 Dose: 650 mg Allopurinol (Zyloprim Tab*) 100 mg PO DAILY WITH MEAL [facility] Last Admin: 09/22/18 08:11 Dose: 100 mg Atorvastatin Calcium (Lipitor*) 40 mg PO DAILY [facility] Last Admin: 09/22/18 08:11 Dose: 40 mg Famotidine (Pepcid Tab*) 20 mg PO DAILY [facility] Last Admin: 09/22/18 08:11 Dose: 20 mg Ferrous Gluconate (Fergon Tab*) 324 mg PO TID [facility] Last Admin: 09/22/18 12:22 Dose: 324 mg Heparin Sodium (Porcine) (Heparin Vial(*)) 0 units IV .PER PROTOCOL [facility] Piperacillin Sod/Tazobactam (Sod 3.375 gm/ Sodium Chloride) 100 mls @ 25 mls/ hr IVPB Q12H [facility] Last Admin: 09/22/18 12:21 Dose: 25 mls/hr Heparin Sodium/Dextrose (Heparin Drip 25,000 Units(*)) 25,000 units in 500 mls @ 0 mls/hr IV PER RATE [facility]; Protocol Last Admin: 09/22/18 08:11 Dose: 29 mls/hr Sodium Chloride (Ns 0.9% 1000 Ml) 1,000 mls @ 50 mls/hr IV .PER RATE [facility] Last Admin: 09/21/18 10:16 Dose: 50 mls/hr Insulin Human Lispro (Humalog*) 0 units SUBCUT ACHS [facility]; Protocol Last Admin: 09/22/18 12:21 Dose: 1 units Labetalol HCl (Trandate Tab*) 200 mg PO BID [facility] Last Admin: 09/22/18 08:11 Dose: 200 mg (Semaglutide [ (Ozempic] 0.25 Units)) 0.25 units INJ Fr@0900 [facility] Pharmacy Consult (Zosyn Per Pharmacy*) 1 note FOLLOW UP .ZOSYN PER PHARMACY [facility] Potassium Chloride (Klor Con Er Tab*) 20 meq PO ONCE ONE Stop: 09/22/18 12:47 Sodium Bicarbonate (Sodium Bicarbonate (Antacid)*) 325 mg PO BID [facility] Last Admin: 09/22/18 08:11 Dose: 325 mg Tramadol HCl (Ultram*) 50 mg PO Q8H PRN PRN Reason: PAIN SEVERE Last Admin: 09/22/18 06:38 Dose: 50 mg Vital Signs - 8 hr 09/22/18 09/22/18 09/22/18 06:38 07:18 08:00 Temperature 98.2 F Pulse Rate 61 Respiratory 18 20 18 Rate Blood Pressure 118/50 (mmHg) O2 Sat by Pulse 95 Oximetry 09/22/18 09/22/18 09:28 11:23 Temperature 98.3 F Pulse Rate 62 Respiratory 18 16 Rate Blood Pressure 134/54 (mmHg) O2 Sat by Pulse 100 Oximetry Oxygen Devices in Use Now: Nasal Cannula Exam: Not septic looking Heart: normal S1S2 Lung: clear Abdomen: soft non tender LL: right leg swelling and redness improved, less warm compared with yesterday Result Diagrams: 09/22/18 06:32 09/22/18 06:32 Microbiology and Other Data: Microbiology 09/21/18 16:00 Stool Occult Blood (CARMINE) - Final Stool Assess/Plan/Problems-Billing Assessment: 58 y/o female with history of T2DM, HTN, 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 Also noted purulent discharge on her right charcot foot ulcer, which could be the entry point of infection. - Patient Problems (1) Sepsis Current Visit: Yes Status: Acute Comment: - Due to right cellulits, cannot rule out right foot osteomyelitis - start on zosyn and vancomycin in view of severe sepsis and potential MRSA - bld culture pending (2) Charcot foot due to diabetes mellitus Current Visit: Yes Status: Acute Code(s): E11.610 - TYPE 2 DIABETES MELLITUS W DIABETIC NEUROPATHIC ARTHROPATHY SNOMED Code(s): 618060953 Comment: bilateral charcot foot right side ulcer, prulent discharge seen, culture sent MRI foot done: bone marrow edema noted in surrounding bones, OM cannot be excluded plan for amputation tmr (3) Cellulitis Current Visit: Yes Status: Acute Code(s): L03.90 - CELLULITIS, UNSPECIFIED SNOMED Code(s): 313158619 Comment: As described above (4) UTI (urinary tract infection) Current Visit: Yes Status: Acute Comment: Pyuria but urine culture neg (5) Troponin level elevated Current Visit: Yes Status: Acute Code(s): R74.8 - ABNORMAL LEVELS OF OTHER SERUM ENZYMES SNOMED Code(s): 668593590 Comment: Likely demand due to sepsis No ECG changes, no chest pain (6) CORTNEY (acute kidney injury) Current Visit: Yes Status: Acute Code(s): N17.9 - ACUTE KIDNEY FAILURE, UNSPECIFIED SNOMED Code(s): 69622186 Comment: CORTNEY on top of CKD cause: sepsis and also dehydration hydrate pt currently (7) Diabetes mellitus Current Visit: No Status: Acute Code(s): E11.9 - TYPE 2 DIABETES MELLITUS WITHOUT COMPLICATIONS SNOMED Code(s): 85914995 Comment: - just started GLP-1 one week before admission - complained of nausea with new med - put on sliding scale while inpatient (8) Hypertension Current Visit: No Status: Acute Code(s): I10 - ESSENTIAL (PRIMARY) HYPERTENSION SNOMED Code(s): 52920820 Comment: - Continue labetelol and lasix, stable (9) Pulmonary thromboembolism Current Visit: No Status: Acute Code(s): I26.99 - OTHER PULMONARY EMBOLISM WITHOUT ACUTE COR PULMONALE SNOMED Code(s): 504480114 Comment: history of PE on retirement coumadin (10) Subtherapeutic international normalized ratio (INR) Current Visit: Yes Status: Acute Code(s): R79.1 - ABNORMAL COAGULATION PROFILE SNOMED Code(s): 665692035 Comment: - INR not reaching 2 on adm - convert to therapeutic dose of heparin in view of potential operation - may need outpt warfarin dose adjustment outpt (11) DVT prophylaxis Current Visit: No Status: Acute Code(s): CKG0791 - SNOMED Code(s): 923718559 Comment: -As above Status and Disposition: Inpatient medicine Attestation Documenting Resident: Elisabeth Morales Supervising Physician: Mayelin Andersen Attestation: This service has been performed in part by a resident under the direction of a teaching physician.I, Mayelin Andersen, performed the service, or was physically present during the critical, or thakur portions of the service, furnished by the resident. I participated in the management of the patient. <Mayelin Andersen - Last Filed: 09/22/18 22:03> Objective Active Medications: Acetaminophen (Tylenol Tab*) 650 mg PO Q4H PRN PRN Reason: FEVER/PAIN Last Admin: 09/22/18 06:38 Dose: 650 mg Allopurinol (Zyloprim Tab*) 100 mg PO DAILY WITH MEAL [facility] Last Admin: 09/22/18 08:11 Dose: 100 mg Atorvastatin Calcium (Lipitor*) 40 mg PO DAILY [facility] Last Admin: 09/22/18 08:11 Dose: 40 mg Famotidine (Pepcid Tab*) 20 mg PO DAILY [facility] Last Admin: 09/22/18 08:11 Dose: 20 mg Ferrous Gluconate (Fergon Tab*) 324 mg PO TID [facility] Last Admin: 09/22/18 12:22 Dose: 324 mg Heparin Sodium (Porcine) (Heparin Vial(*)) 0 units IV .PER PROTOCOL [facility] Piperacillin Sod/Tazobactam (Sod 3.375 gm/ Sodium Chloride) 100 mls @ 25 mls/ hr IVPB Q12H [facility] Last Admin: 09/22/18 12:21 Dose: 25 mls/hr Heparin Sodium/Dextrose (Heparin Drip 25,000 Units(*)) 25,000 units in 500 mls @ 0 mls/hr IV PER RATE [facility]; Protocol Stop: 09/23/18 06:00 Last Admin: 09/22/18 08:11 Dose: 29 mls/hr Sodium Chloride (Ns 0.9% 1000 Ml) 1,000 mls @ 50 mls/hr IV .PER RATE [facility] Last Admin: 09/21/18 10:16 Dose: 50 mls/hr Insulin Human Lispro (Humalog*) 0 units SUBCUT [facility]; Protocol Last Admin: 09/22/18 16:53 Dose: 1 units Labetalol HCl (Trandate Tab*) 200 mg PO BID [facility] Last Admin: 09/22/18 08:11 Dose: 200 mg (Semaglutide [ (Ozempic] 0.25 Units)) 0.25 units INJ Fr@0900 [facility] Pharmacy Consult (Zosyn Per Pharmacy*) 1 note FOLLOW UP .ZOSYN PER PHARMACY [facility] Sodium Bicarbonate (Sodium Bicarbonate (Antacid)*) 325 mg PO BID [facility] Last Admin: 09/22/18 08:11 Dose: 325 mg Tramadol HCl (Ultram*) 50 mg PO Q8H PRN PRN Reason: PAIN SEVERE Last Admin: 09/22/18 06:38 Dose: 50 mg Vital Signs - 8 hr 09/22/18 15:12 Temperature 97.5 F Pulse Rate 62 Respiratory 24 Rate Blood Pressure 116/48 (mmHg) O2 Sat by Pulse 97 Oximetry Result Diagrams: 09/22/18 06:32 09/22/18 06:32 Assess/Plan/Problems-Billing Assessment: Attestation Attending/Supervising Physician Comment: Lillian is improving on vanc/zosyn. Ortho planning I&D of ankle/ulcer. Unfortunately with elevated troponin, LVH on ekg, and difficult to quantify functional capacity, she warrants a stress test prior to anesthesia. We will order this for first thing tomorrow and complete a risk stratification then. Continue heparin; will hold prior to surgery. CORTNEY on CKD minimally improved with IVF--will need to be very cautious of hypotension perioperatively
[2018-09-23] MEDS: Heparin DRIP 25,000 UNITS(*) 25,000 UNITS/500 ML BAG IV SCH (03:10)
[2018-09-23] MEDS ORDERED: Vancomycin Random Level* NOTE FOLLOW UP ONE (06:00)
--- NOTE | 2018-09-23 06:51 | PN ---
<Elisabeth Morales - Last Filed: 09/23/18 19:20> Subjective Date of Service: 09/23/18 Interval History: No fever over night. 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 Nuclear stress test came back neg. Objective Active Medications: Acetaminophen (Tylenol Tab*) 650 mg PO Q4H PRN PRN Reason: FEVER/PAIN Last Admin: 09/22/18 21:50 Dose: 650 mg Allopurinol (Zyloprim Tab*) 100 mg PO DAILY WITH MEAL [facility] Last Admin: 09/22/18 08:11 Dose: 100 mg Atorvastatin Calcium (Lipitor*) 40 mg PO DAILY [facility] Last Admin: 09/22/18 08:11 Dose: 40 mg Famotidine (Pepcid Tab*) 20 mg PO DAILY [facility] Last Admin: 09/22/18 08:11 Dose: 20 mg Ferrous Gluconate (Fergon Tab*) 324 mg PO TID [facility] Last Admin: 09/22/18 22:30 Dose: 324 mg Heparin Sodium (Porcine) (Heparin Vial(*)) 0 units IV .PER PROTOCOL [facility] Piperacillin Sod/Tazobactam (Sod 3.375 gm/ Sodium Chloride) 100 mls @ 25 mls/ hr IVPB Q12H [facility] Last Admin: 09/22/18 21:57 Dose: 25 mls/hr Sodium Chloride (Ns 0.9% 1000 Ml) 1,000 mls @ 50 mls/hr IV .PER RATE [facility] Last Admin: 09/21/18 10:16 Dose: 50 mls/hr Insulin Human Lispro (Humalog*) 0 units SUBCUT ACHS [facility]; Protocol Last Admin: 09/22/18 22:06 Dose: 2 units (Semaglutide [ (Ozempic] 0.25 Units)) 0.25 units INJ Fr@0900 [facility] Pharmacy Consult (Zosyn Per Pharmacy*) 1 note FOLLOW UP .ZOSYN PER PHARMACY [facility] Sodium Bicarbonate (Sodium Bicarbonate (Antacid)*) 325 mg PO BID [facility] Last Admin: 09/22/18 21:51 Dose: 325 mg Tramadol HCl (Ultram*) 50 mg PO Q8H PRN PRN Reason: PAIN SEVERE Last Admin: 09/22/18 21:49 Dose: 50 mg Vital Signs - 8 hr 09/22/18 09/22/18 09/23/18 23:00 23:49 03:00 Temperature 98.1 F 97.5 F Pulse Rate 70 59 Respiratory 16 16 20 Rate Blood Pressure 126/50 126/55 (mmHg) O2 Sat by Pulse 96 94 Oximetry Oxygen Devices in Use Now: Nasal Cannula Exam: Comfortable Heart: normal S1S2 Lung: clear Abdomen: soft, non tender LL right leg redness and swelling improved, right foot no pus noted Result Diagrams: 09/23/18 07:09 09/23/18 07:09 Microbiology and Other Data: Microbiology 09/21/18 16:00 Stool Occult Blood (CARMINE) - Final Stool Assess/Plan/Problems-Billing Assessment: HD #3 58 y/o female with history of T2DM, HTN, recurrent DVT and PE on coumadin, bilateral charcot foot s/p surgeries on both feet, chronic anemia, HLD, CKD stage 4-5, presented with fever, found to have sepsis due to right leg cellulits and right infected foot. - Patient Problems (1) Sepsis Current Visit: Yes Status: Acute Comment: - Due to right leg cellulits, cannot rule out right foot osteomyelitis - start on zosyn and vancomycin in view of severe sepsis and potential MRSA - bld culture pending, wound cs staph aureus. (2) Charcot foot due to diabetes mellitus Current Visit: Yes Status: Acute Code(s): E11.610 - TYPE 2 DIABETES MELLITUS W DIABETIC NEUROPATHIC ARTHROPATHY SNOMED Code(s): 470220380 Comment: bilateral charcot foot right side ulcer, prulent discharge seen, culture sent MRI foot done: bone marrow edema noted in surrounding bones, OM cannot be excluded plan for I&D today Medically cleared for operation- based on NSQIP score, 0.4% cardiac risk; based on RCCI score, 15% risk of . (3) Cellulitis Current Visit: Yes Status: Acute Code(s): L03.90 - CELLULITIS, UNSPECIFIED SNOMED Code(s): 589145125 Comment: As described above (4) UTI (urinary tract infection) Current Visit: Yes Status: Acute Comment: Pyuria but urine culture neg (5) Troponin level elevated Current Visit: Yes Status: Acute Code(s): R74.8 - ABNORMAL LEVELS OF OTHER SERUM ENZYMES SNOMED Code(s): 322794877 Comment: Likely demand due to sepsis No ECG changes, no chest pain (6) CORTNEY (acute kidney injury) Current Visit: Yes Status: Acute Code(s): N17.9 - ACUTE KIDNEY FAILURE, UNSPECIFIED SNOMED Code(s): 52624982 Comment: CORTNEY on top of CKD cause: sepsis and also dehydration hydrate pt currently, improving in creat (7) Diabetes mellitus Current Visit: No Status: Acute Code(s): E11.9 - TYPE 2 DIABETES MELLITUS WITHOUT COMPLICATIONS SNOMED Code(s): 68739755 Comment: - just started GLP-1 one week before admission - complained of nausea with new med - put on sliding scale while inpatient (8) Hypertension Current Visit: No Status: Acute Code(s): I10 - ESSENTIAL (PRIMARY) HYPERTENSION SNOMED Code(s): 28351959 Comment: - Continue labetelol and lasix, stable (9) Pulmonary thromboembolism Current Visit: No Status: Acute Code(s): I26.99 - OTHER PULMONARY EMBOLISM WITHOUT ACUTE COR PULMONALE SNOMED Code(s): 856576697 Comment: history of PE on long-term coumadin (10) Subtherapeutic international normalized ratio (INR) Current Visit: Yes Status: Acute Code(s): R79.1 - ABNORMAL COAGULATION PROFILE SNOMED Code(s): 829130812 Comment: - INR not reaching 2 on adm - convert to therapeutic dose of heparin in view of potential operation - may need outpt warfarin dose adjustment outpt (11) DVT prophylaxis Current Visit: No Status: Acute Code(s): IBR6483 - SNOMED Code(s): 070361294 Comment: -As above Status and Disposition: Inpatient medicine <Mayelin Andersen - Last Filed: 09/23/18 21:48> Objective Active Medications: Acetaminophen (Tylenol Tab*) 650 mg PO Q4H PRN PRN Reason: FEVER/PAIN Last Admin: 09/22/18 21:50 Dose: 650 mg Allopurinol (Zyloprim Tab*) 100 mg PO DAILY WITH MEAL [facility] Last Admin: 09/23/18 07:34 Dose: Not Given Atorvastatin Calcium (Lipitor*) 40 mg PO DAILY [facility] Last Admin: 09/23/18 07:34 Dose: Not Given Famotidine (Pepcid Tab*) 20 mg PO DAILY [facility] Last Admin: 09/23/18 07:34 Dose: Not Given Ferrous Gluconate (Fergon Tab*) 324 mg PO TID [facility] Last Admin: 09/23/18 21:02 Dose: 324 mg Heparin Sodium (Porcine) (Heparin Vial(*)) 0 units IV .PER PROTOCOL [facility] Hydromorphone HCl (Dilaudid Inj1s*) 0.5 mg IV SLOW PU Q6H PRN PRN Reason: PAIN - MODERATE Piperacillin Sod/Tazobactam (Sod 3.375 gm/ Sodium Chloride) 100 mls @ 25 mls/ hr IVPB Q12H [facility] Last Admin: 09/23/18 21:03 Dose: 25 mls/hr Sodium Chloride (Ns 0.9% 1000 Ml) 1,000 mls @ 50 mls/hr IV .PER RATE [facility] Last Admin: 09/23/18 18:24 Dose: 50 mls/hr Heparin Sodium/Dextrose (Heparin Drip 25,000 Units(*)) 25,000 units in 500 mls @ 0 mls/hr IV PER RATE [facility]; Protocol Insulin Human Lispro (Humalog*) 0 units SUBCUT ACHS [facility]; Protocol Last Admin: 09/23/18 21:03 Dose: Not Given (Semaglutide [ (Ozempic] 0.25 Units)) 0.25 units INJ Fr@0900 [facility] Pharmacy Consult (Zosyn Per Pharmacy*) 1 note FOLLOW UP .ZOSYN PER PHARMACY [facility] Sodium Bicarbonate (Sodium Bicarbonate (Antacid)*) 325 mg PO BID [facility] Last Admin: 09/23/18 21:02 Dose: 325 mg Tramadol HCl (Ultram*) 50 mg PO Q8H PRN PRN Reason: PAIN SEVERE Last Admin: 09/22/18 21:49 Dose: 50 mg Vital Signs - 8 hr 09/23/18 09/23/18 09/23/18 14:02 14:06 14:10 Temperature 96.8 F Pulse Rate 61 60 Respiratory 16 18 Rate Blood Pressure 153/79 148/79 152/75 (mmHg) O2 Sat by Pulse 99 96 Oximetry 09/23/18 09/23/18 09/23/18 14:15 14:16 14:20 Temperature Pulse Rate Respiratory 18 18 Rate Blood Pressure 162/79 (mmHg) O2 Sat by Pulse Oximetry 09/23/18 09/23/18 09/23/18 14:21 14:26 14:30 Temperature 97.5 F Pulse Rate Respiratory 18 Rate Blood Pressure 176/86 163/86 (mmHg) O2 Sat by Pulse Oximetry 09/23/18 09/23/18 09/23/18 14:43 14:45 15:00 Temperature Pulse Rate 60 59 Respiratory 18 Rate Blood Pressure 161/75 154/75 171/82 (mmHg) O2 Sat by Pulse 98 96 Oximetry 09/23/18 09/23/18 15:57 16:56 Temperature 97.2 F Pulse Rate 58 Respiratory 20 Rate Blood Pressure 145/65 (mmHg) O2 Sat by Pulse 100 100 Oximetry Result Diagrams: 09/23/18 19:57 09/23/18 19:57 Assess/Plan/Problems-Billing Assessment: Attestation Documenting Resident: Andrew Supervising Physician: Ganesh Attending/Supervising Physician Comment: I came to see Peaches post-op today. Her brother was visiting. She was feeling quite well after surgery. It was reported to be uneventful. The right ankle is wrapped in an YE and a wound vac is draining bloody drainage. She has no pain. She has elevated risk for perioperative complications so she needs to be monitored closely for signs of infection, thrombosis, hypotension, renal failure, cardiac events, etc. Her stress test this morning was read as low risk. #cellulitis/abscess continue pip/tazo leukocytosis improving POD #0 I&D/washout and wound vac placement start pain control prn #CORTNEY on CKD avoid hypotension periop #PE/DVT, unprovoked resume heparin drip as soon as postop bleeding stops Attestation: This service has been performed in part by a resident under the direction of a teaching physician.Ganesh Mc, performed the service, or was physically present during the critical, or thakur portions of the service, furnished by the resident. I participated in the management of the patient.
[2018-09-23] MEDS: Allopurinol TAB* 100 MG PO SCH (07:34)
[2018-09-23] MEDS: Famotidine TAB* 20 MG PO SCH (07:34)
[2018-09-23] MEDS: Ferrous Gluconate TAB* 324 MG TAB PO SCH ×3 (07:34→21:02)
[2018-09-23] MEDS: Atorvastatin* 40 MG TAB PO SCH (07:34)
[2018-09-23] MEDS: Sodium Bicarbonate (ANTACID)* 650 MG TAB PO SCH ×2 (07:34→21:02)
[2018-09-23 07:42] LABS: ABS Eosinophils 0.4 10^3/ul (0-0.6); ABS Monocytes 0.7 10^3/ul (0-0.8); ABS Neutrophils 9.3 10^3/ul (1.5-7.7); Eosinophil % 3.3 %; Hematocrit 28 % (35-47); Hemoglobin 8.9 g/dL (12.0-16.0); Lymphocyte % 15.7 %; Mean Corpuscular HGB Conc 32 g/dL (31-36); Mean Corpuscular Hemoglobin 26 pg (27-31); Mean Corpuscular Volume 80 fL (80-97); Mean Platelet Volume 8.2 fL (7.4-10.4); Platelet Count 236 10^3/uL (150-450); Red Blood Count 3.44 10^6 /uL (3.70-4.87); Red Cell Distribution Width 16 % (10-15); White Blood Count 12.5 10^3/uL (3.5-10.8)
[2018-09-23 07:50] LABS: INR 1.62 (0.82-1.09)
[2018-09-23 07:57] LABS: BUN/Creatinine Ratio 16.4 (8-20); EGFR African American 13.1 (>60); EGFR Non-African American 10.8 (>60); Potassium 3.2 mmol/L (3.5-5.0)
[2018-09-23] MEDS ORDERED: Regadenoson* 0.4 MG/5 ML SYRINGE ONE (08:01)
[2018-09-23] MEDS ORDERED: Aminophylline IV* 25 MG/ML 10 ML VIAL ONE (08:02)
[2018-09-23 08:31] LABS: Vancomycin Random 16.3 mcg/mL
[2018-09-23] MEDS: Insulin LISPRO* 1 UNITS UNIT SUBCUT SCH ×4 (09:04→21:03)
[2018-09-23] MEDS: KCL 20 MEQ/100 ML IVPREMIX* 20 MEQ/100 ML BAG IV SCH ×2 (10:46→15:39)
[2018-09-23] MEDS: ZOSYN 3.375 GM Q12H per EXTENDED INFUSION IVPB SCH ×4 (10:49→21:03)
[2018-09-23] MEDS ORDERED: Bupivacaine 0.5% W/EPI SDV* 30 ML VIAL ONE (12:51)
[2018-09-23] MEDS ORDERED: Midazolam* 1 MG/ML 5 ML VIAL (5 MG) ONE (12:59)
[2018-09-23] MEDS ORDERED: fentaNYL* 50 MCG/ML 2 ML VIAL (100 MCG VIAL) ONE (13:20)
[2018-09-23] MEDS ORDERED: Midazolam* 1 MG/ML 2 ML VIAL (2 MG) ONE (13:32)
[2018-09-23] MEDS ORDERED: Naloxone* 0.4 MG/ML 1 ML VIAL IV PRN (13:53)
[2018-09-23] MEDS ORDERED: fentaNYL* 50 MCG/ML 2 ML VIAL (100 MCG VIAL) IV PRN (13:53)
[2018-09-23] MEDS ORDERED: oxyCODONE/Acetamin 5/325 MG* TAB PO PRN (13:53)
[2018-09-23] MEDS ORDERED: Ondansetron INJ* 2 MG/ML VIAL IV PRN (13:53)
--- NOTE | 2018-09-23 14:10 | OP ---
Operative Report - Blank - Operative Report Date of Operation: 09/23/18 Note: PATIENT: Estefanía Jon (Peaches) DATE OF : 1960 DATE OF SURGERY: 09/23/2018 SURGEON: Ruben Jean-Baptiste MD SAFETY LEAD: NIKIA Hay, whos assistance was necessary for positioning, retraction, help with instrumentation, and closure. ANESTHESIOLOGIST: Dr. Zimmerman PREOPERATIVE DIAGNOSIS: Right diabetic lateral ankle ulcer with infection in setting of Charcot neuroarthropathy POSTOPERATIVE DIAGNOSIS: Right diabetic lateral ankle ulcer with infection in setting of Charcot neuroarthropathy OPERATION: Right lateral ankle irrigation and debridement, distal fibula saucerization, placement of a wound VAC ANESTHESIA: MAC IMPLANTS: none TOURNIQUET TIME: none SPECIMENS: Culture swabs and distal fibula for culture ESTIMATED BLOOD LOSS: minimal COMPLICATIONS: none STATUS: Stable from the operating room to the recovery room and then back to the hospital floor. INDICATIONS FOR PROCEDURE: Lillian has diabetic neuropathy and Charcot neuroarthropathy. She has developed a lateral ankle/foot ulcer overlying her prominent distal fibula. Both operative and non-operative treatment alternatives were reviewed. Further, the nature and risks of surgery were reviewed in careful detail. Our discussions regarding the risks of surgery included, but were not limited to, persistent or worsening infection, wound problems, nerve injury, neuroma, RSD, persistent symptoms, blood clot, need for further surgery, need for amputation, failure of the surgery, and even the remote chance of catastrophic complication. DESCRIPTION OF PROCEDURE: The patient was seen in the preoperative holding unit and informed written consent was obtained. The appropriate extremity was marked. The patient was then brought to the operating room and carefully positioned on the operating room table. Anesthesia was induced. All bony prominences were padded with great care. A well-padded thigh tourniquet was placed. A chlorhexidine based pre- scrub was performed followed by a chloraprep prep and drape in standard sterile fashion. A surgical safety pause was then conducted in which we confirmed the appropriate patient, extremity, planned procedure, availability of equipment, indication and administration of prophylactic antibiotics, and DVT prophylaxis in the form of a compression boot on the non-surgical extremity. I began by excising the ulcer. This left a 2 x 2 cm wound. I then sent culture swabs to microbiology. I then debrided of all nonviable-appearing tissue and the subcutaneous, periosteal layers down to bone. The distal fibula was quite prominent. I exposed this and then used a small oscillating saw to saucerize the distal fibula. This was beveled so as there would be no prominence laterally or inferiorly. A rongeur was then used to smooth around the edges of the cut. The distal fibula was then sent to microbiology for culture. I then thoroughly irrigated the wound with sterile saline. I then placed a wound VAC in the 2 x 2 x 0.5 cm wound. This held good suction without any leaks. The patient was then awakened from anesthesia and transferred to the recovery room in stable condition. There were no complications. All needle and sponge counts were correct at the end of the case. ATTESTATION: I attest I was present and scrubbed and performed the critical portions of the procedure myself. POSTOPERATIVE PLAN: We will continue with the wound VAC and 125 mmHg. Continue with antibiotics as guided by the infectious disease service.
[2018-09-23] MEDS: NS 0.9% 1000 ML** 1,000 ML IV SCH (18:24)
[2018-09-23] MEDS ORDERED: Heparin DRIP 25,000 UNITS(*) 25,000 UNITS/500 ML BAG IV SCH (18:45)
[2018-09-23 20:03] LABS: ABS Basophils 0.1 10^3/ul (0-0.2); ABS Eosinophils 0.4 10^3/ul (0-0.6); ABS Lymphocytes 1.6 10^3/ul (1.0-4.8); ABS Monocytes 0.8 10^3/ul (0-0.8); ABS Neutrophils 8.8 10^3/ul (1.5-7.7); Eosinophil % 3.8 %; Hematocrit 26 % (35-47); Hemoglobin 8.3 g/dL (12.0-16.0); Lymphocyte % 13.4 %; Mean Corpuscular HGB Conc 32 g/dL (31-36); Mean Corpuscular Hemoglobin 26 pg (27-31); Mean Corpuscular Volume 80 fL (80-97); Mean Platelet Volume 7.7 fL (7.4-10.4); Platelet Count 227 10^3/uL (150-450); Red Blood Count 3.24 10^6 /uL (3.70-4.87); Red Cell Distribution Width 16 % (10-15); White Blood Count 11.7 10^3/uL (3.5-10.8)
[2018-09-23 20:17] LABS: EGFR African American 15.1 (>60); EGFR Non-African American 12.5 (>60)
[2018-09-24] MEDS: HYDROmorphone INJ1* 1 MG/ML SYRINGE IV SLOW PU PRN (00:46)
[2018-09-24] MEDS: Heparin DRIP 25,000 UNITS(*) 25,000 UNITS/500 ML BAG IV SCH ×2 (00:55→21:04)
--- NOTE | 2018-09-24 06:54 | PN ---
<Elisabeth Tompkins - Last Filed: 09/24/18 15:37> Subjective Date of Service: 09/24/18 Interval History: Overnight, vital stable. Labs:improving in creatnine, and WBC Went to i&D and partial debridement yesterday, She is cheerful, feeling better as cellulits improved. Objective Active Medications: Acetaminophen (Tylenol Tab*) 650 mg PO Q4H PRN PRN Reason: FEVER/PAIN Last Admin: 09/22/18 21:50 Dose: 650 mg Allopurinol (Zyloprim Tab*) 100 mg PO DAILY WITH MEAL [facility] Last Admin: 09/23/18 07:34 Dose: Not Given Atorvastatin Calcium (Lipitor*) 40 mg PO DAILY [facility] Last Admin: 09/23/18 07:34 Dose: Not Given Famotidine (Pepcid Tab*) 20 mg PO DAILY [facility] Last Admin: 09/23/18 07:34 Dose: Not Given Ferrous Gluconate (Fergon Tab*) 324 mg PO TID [facility] Last Admin: 09/23/18 21:02 Dose: 324 mg Heparin Sodium (Porcine) (Heparin Vial(*)) 0 units IV .PER PROTOCOL [facility] Hydromorphone HCl (Dilaudid Inj1s*) 0.5 mg IV SLOW PU Q6H PRN PRN Reason: PAIN - MODERATE Last Admin: 09/24/18 00:46 Dose: 0.5 mg Piperacillin Sod/Tazobactam (Sod 3.375 gm/ Sodium Chloride) 100 mls @ 25 mls/ hr IVPB Q12H [facility] Last Admin: 09/23/18 21:03 Dose: 25 mls/hr Sodium Chloride (Ns 0.9% 1000 Ml) 1,000 mls @ 50 mls/hr IV .PER RATE [facility] Last Admin: 09/23/18 18:24 Dose: 50 mls/hr Heparin Sodium/Dextrose (Heparin Drip 25,000 Units(*)) 25,000 units in 500 mls @ 0 mls/hr IV PER RATE [facility]; Protocol Last Admin: 09/24/18 00:55 Dose: 1,400 mls/hr Insulin Human Lispro (Humalog*) 0 units SUBCUT ACHS [facility]; Protocol Last Admin: 09/23/18 21:03 Dose: Not Given (Semaglutide [ (Ozempic] 0.25 Units)) 0.25 units INJ Fr@0900 [facility] Pharmacy Consult (Zosyn Per Pharmacy*) 1 note FOLLOW UP .ZOSYN PER PHARMACY [facility] Sodium Bicarbonate (Sodium Bicarbonate (Antacid)*) 325 mg PO BID [facility] Last Admin: 09/23/18 21:02 Dose: 325 mg Tramadol HCl (Ultram*) 50 mg PO Q8H PRN PRN Reason: PAIN SEVERE Last Admin: 09/22/18 21:49 Dose: 50 mg Vital Signs - 8 hr 09/24/18 09/24/18 00:46 01:45 Respiratory 16 16 Rate Oxygen Devices in Use Now: Nasal Cannula Exam: Well, not indistress little SOB after exertion on floor Heart: normlmal S1, S2 lung: clear Andomen: soft, nontender No swelling Result Diagrams: 09/24/18 07:20 09/23/18 19:57 Microbiology and Other Data: Microbiology 09/21/18 16:00 Stool Occult Blood (CARMINE) - Final Stool Assess/Plan/Problems-Billing Assessment: HD #4 58 y/o female with history of T2DM, HTN, recurrent DVT and PE on coumadin, bilateral charcot foot s/p surgeries on both feet, chronic anemia, HLD, CKD stage 4-5, presented with fever, found to have sepsis due to right leg cellulits and right infected foot s/p I&D . - Patient Problems (1) Sepsis Current Visit: Yes Status: Acute Comment: - Due to right leg cellulits, cannot rule out right foot osteomyelitis - start on zosyn and vancomycin in view of severe sepsis and potential MRSA - bld culture pending, wound cs staph aureus. - convert to lizino - continue current abx (zosyn and vanco for now) (2) Charcot foot due to diabetes mellitus Current Visit: Yes Status: Acute Code(s): E11.610 - TYPE 2 DIABETES MELLITUS W DIABETIC NEUROPATHIC ARTHROPATHY SNOMED Code(s): 750386084 Comment: bilateral charcot foot right side ulcer, prulent discharge seen, culture sent MRI foot done: bone marrow edema noted in surrounding bones, OM cannot be excluded plan for I&D today Medically cleared for operation- based on NSQIP score, 0.4% cardiac risk; based on RCCI score, 15% risk of . (3) Cellulitis Current Visit: Yes Status: Acute Code(s): L03.90 - CELLULITIS, UNSPECIFIED SNOMED Code(s): 533367066 Comment: As described above (4) UTI (urinary tract infection) Current Visit: Yes Status: Acute Comment: Pyuria but urine culture neg (5) Troponin level elevated Current Visit: Yes Status: Acute Code(s): R74.8 - ABNORMAL LEVELS OF OTHER SERUM ENZYMES SNOMED Code(s): 516437849 Comment: Likely demand due to sepsis No ECG changes, no chest pain (6) CORTNEY (acute kidney injury) Current Visit: Yes Status: Acute Code(s): N17.9 - ACUTE KIDNEY FAILURE, UNSPECIFIED SNOMED Code(s): 21831030 Comment: CORTNEY on top of CKD cause: sepsis and also dehydration hydrate pt currently, improving in creat (7) Diabetes mellitus Current Visit: No Status: Acute Code(s): E11.9 - TYPE 2 DIABETES MELLITUS WITHOUT COMPLICATIONS SNOMED Code(s): 70254761 Comment: - just started GLP-1 one week before admission - complained of nausea with new med - put on sliding scale while inpatient (8) Hypertension Current Visit: No Status: Acute Code(s): I10 - ESSENTIAL (PRIMARY) HYPERTENSION SNOMED Code(s): 50995690 Comment: - Continue labetelol and lasix, stable (9) Pulmonary thromboembolism Current Visit: No Status: Acute Code(s): I26.99 - OTHER PULMONARY EMBOLISM WITHOUT ACUTE COR PULMONALE SNOMED Code(s): 764736877 Comment: history of PE on longterm coumadin (10) Subtherapeutic international normalized ratio (INR) Current Visit: Yes Status: Acute Code(s): R79.1 - ABNORMAL COAGULATION PROFILE SNOMED Code(s): 560417341 Comment: - INR not reaching 2 on adm - convert to therapeutic dose of heparin in view of potential operation - may need outpt warfarin dose adjustment outpt (11) DVT prophylaxis Current Visit: No Status: Acute Code(s): IWK4870 - SNOMED Code(s): 969180424 Comment: -As above Status and Disposition: Inpatient medicine Attestation Documenting Resident: Elisabeth TOMPKINS Supervising Physician: Devon Andersen Attestation: This service has been performed in part by a resident under the direction of a teaching physician.I, Devon Andersen, performed the service, or was physically present during the critical, or thakur portions of the service, furnished by the resident. I participated in the management of the patient. <Mayelin Andersen - Last Filed: 09/24/18 18:35> Objective Active Medications: Acetaminophen (Tylenol Tab*) 650 mg PO Q4H PRN PRN Reason: FEVER/PAIN Last Admin: 09/22/18 21:50 Dose: 650 mg Allopurinol (Zyloprim Tab*) 100 mg PO DAILY WITH MEAL [facility] Last Admin: 09/24/18 10:47 Dose: 100 mg Atorvastatin Calcium (Lipitor*) 40 mg PO DAILY [facility] Last Admin: 09/24/18 10:45 Dose: 40 mg Famotidine (Pepcid Tab*) 20 mg PO DAILY [facility] Last Admin: 09/24/18 10:45 Dose: 20 mg Ferrous Gluconate (Fergon Tab*) 324 mg PO TID [facility] Last Admin: 09/24/18 13:30 Dose: 324 mg Heparin Sodium (Porcine) (Heparin Vial(*)) 0 units IV .PER PROTOCOL [facility] Hydromorphone HCl (Dilaudid Inj1s*) 0.5 mg IV SLOW PU Q6H PRN PRN Reason: PAIN - MODERATE Last Admin: 09/24/18 00:46 Dose: 0.5 mg Sodium Chloride (Ns 0.9% 1000 Ml) 1,000 mls @ 50 mls/hr IV .PER RATE [facility] Last Admin: 09/23/18 18:24 Dose: 50 mls/hr Heparin Sodium/Dextrose (Heparin Drip 25,000 Units(*)) 25,000 units in 500 mls @ 0 mls/hr IV PER RATE [facility]; Protocol Last Admin: 09/24/18 00:55 Dose: 1,400 mls/hr Cefazolin Sodium 1 gm/ Sodium (Chloride) 50 mls @ 200 mls/hr IVPB Q12H [facility] Last Admin: 09/24/18 17:52 Dose: 200 mls/hr Insulin Human Lispro (Humalog*) 0 units SUBCUT ACHS [facility]; Protocol Last Admin: 09/24/18 17:48 Dose: Not Given (Semaglutide [ (Ozempic] 0.25 Units)) 0.25 units INJ Fr@0900 [facility] Last Admin: 09/24/18 10:57 Dose: Not Given Sodium Bicarbonate (Sodium Bicarbonate (Antacid)*) 325 mg PO BID [facility] Last Admin: 09/24/18 10:45 Dose: 325 mg Tramadol HCl (Ultram*) 50 mg PO Q8H PRN PRN Reason: PAIN SEVERE Last Admin: 09/22/18 21:49 Dose: 50 mg Warfarin Sodium (Coumadin Tab(*)) 5 mg PO DAILY@1700 [facility]; Protocol Last Admin: 09/24/18 17:52 Dose: 5 mg Vital Signs - 8 hr 09/24/18 09/24/18 11:29 15:21 Temperature 97.3 F 97.5 F Pulse Rate 58 61 Respiratory 16 20 Rate Blood Pressure 164/66 155/66 (mmHg) O2 Sat by Pulse 100 99 Oximetry Result Diagrams: 09/24/18 07:20 09/23/18 19:57 Assess/Plan/Problems-Billing Assessment: Attestation Attending/Supervising Physician Comment: Improving s/p I&D, now with wound vac in place. Feeling good today. Resume warfarin; bridge with heparin. Plan for PMRU.
[2018-09-24 07:38] LABS: ABS Basophils 0.1 10^3/ul (0-0.2); ABS Eosinophils 0.4 10^3/ul (0-0.6); ABS Lymphocytes 1.5 10^3/ul (1.0-4.8); ABS Monocytes 0.7 10^3/ul (0-0.8); ABS Neutrophils 7.7 10^3/ul (1.5-7.7); Hematocrit 27 % (35-47); Hemoglobin 9.1 g/dL (12.0-16.0); Lymphocyte % 14.7 %; Mean Corpuscular HGB Conc 33 g/dL (31-36); Mean Corpuscular Hemoglobin 26 pg (27-31); Mean Corpuscular Volume 79 fL (80-97); Mean Platelet Volume 7.8 fL (7.4-10.4); Platelet Count 256 10^3/uL (150-450); Red Blood Count 3.47 10^6 /uL (3.70-4.87); Red Cell Distribution Width 16 % (10-15); White Blood Count 10.4 10^3/uL (3.5-10.8)
[2018-09-24] MEDS ORDERED: SEMAGLUTIDE INJ SCH (09:00)
[2018-09-24] MEDS: Insulin LISPRO* 1 UNITS UNIT SUBCUT SCH ×4 (09:45→21:29)
[2018-09-24] MEDS: Atorvastatin* 40 MG TAB PO SCH (10:45)
[2018-09-24] MEDS: ZOSYN 3.375 GM Q12H per EXTENDED INFUSION IVPB SCH ×2 (10:45)
[2018-09-24] MEDS: Ferrous Gluconate TAB* 324 MG TAB PO SCH ×3 (10:45→21:41)
[2018-09-24] MEDS: Sodium Bicarbonate (ANTACID)* 650 MG TAB PO SCH ×2 (10:45→21:41)
[2018-09-24] MEDS: Famotidine TAB* 20 MG PO SCH (10:45)
[2018-09-24] MEDS: Allopurinol TAB* 100 MG PO SCH (10:47)
--- NOTE | 2018-09-24 14:08 | PN ---
Progress Note - Progress Note Date of Service: 09/24/18 SOAP: Subjective: CC: cellulitis HPI: 58 year old woman with right leg cellulitis and lateral ankle wound; s/p I& D of wound and fibula. She feels well, no leg pain or fever. Objective: Vital Signs Temp 36.3 C 09/24/18 11:29 Pulse 58 09/24/18 11:29 Resp 16 09/24/18 11:29 BP 164/66 09/24/18 11:29 Pulse Ox 100 09/24/18 11:29 Intake & Output 09/23/18 09/24/18 09/24/18 18:59 06:59 18:59 Intake Total 2180 715 240 Output Total 800 0 Balance 2180 -85 240 Intake: IV Fluids 500 366 ABX - ZOSYN 231 KCL in Sterile Water 135 ns 500 IVPB 215 ABX - ZOSYN 105 KCL in Sterile Water 110 Heparin 134 Oral 1680 0 240 Output: Urine 800 0 Other: Estimated Void Medium Medium # Bowel Movements 2 1 Estimated Stool Amount Medium # Voids 1 1 Gen:awake, no distress HEENT: no thrush Heart:RRR no murmur Lungs:CTA BL Abd:+BS NTND soft Skin: no rash MSK: R foot wrapped Laboratory Results - last 24 hr 09/23/18 09/23/18 09/23/18 15:29 16:26 19:57 WBC RBC Hgb Hct MCV MCH MCHC RDW Plt Count MPV Neut % (Auto) Lymph % (Auto) [place] % (Auto) Eos % (Auto) Baso % (Auto) Absolute Neuts (auto) Absolute Lymphs (auto) Absolute Monos (auto) Absolute Eos (auto) Absolute Basos (auto) Absolute Nucleated RBC Nucleated RBC % APTT 36.4 BUN 62 H Creatinine 3.71 H Est GFR ( Amer) 15.1 Est GFR (Non-Af Amer) 12.5 POC Glucose (mg/dL) 137 H 09/23/18 09/23/18 09/23/18 19:57 19:57 21:00 WBC 11.7 H RBC 3.24 L Hgb 8.3 L Hct 26 L MCV 80 MCH 26 L MCHC 32 RDW 16 H Plt Count 227 MPV 7.7 Neut % (Auto) 75.2 Lymph % (Auto) 13.4 [place] % (Auto) 7.1 Eos % (Auto) 3.8 Baso % (Auto) 0.5 Absolute Neuts (auto) 8.8 H Absolute Lymphs (auto) 1.6 Absolute Monos (auto) 0.8 Absolute Eos (auto) 0.4 Absolute Basos (auto) 0.1 Absolute Nucleated RBC 0.0 Nucleated RBC % 0.0 APTT 35.7 BUN Creatinine Est GFR ( Amer) Est GFR (Non-Af Amer) POC Glucose (mg/dL) 114 H 09/24/18 09/24/18 09/24/18 07:20 07:20 08:54 WBC 10.4 RBC 3.47 L Hgb 9.1 L Hct 27 L MCV 79 L MCH 26 L MCHC 33 RDW 16 H Plt Count 256 MPV 7.8 Neut % (Auto) 73.8 Lymph % (Auto) 14.7 [place] % (Auto) 6.7 Eos % (Auto) 4.0 Baso % (Auto) 0.8 Absolute Neuts (auto) 7.7 Absolute Lymphs (auto) 1.5 Absolute Monos (auto) 0.7 Absolute Eos (auto) 0.4 Absolute Basos (auto) 0.1 Absolute Nucleated RBC 0.0 Nucleated RBC % 0.0 APTT 58.7 H BUN Creatinine Est GFR ( Amer) Est GFR (Non-Af Amer) POC Glucose (mg/dL) 124 H 09/24/18 11:49 WBC RBC Hgb Hct MCV MCH MCHC RDW Plt Count MPV Neut % (Auto) Lymph % (Auto) [place] % (Auto) Eos % (Auto) Baso % (Auto) Absolute Neuts (auto) Absolute Lymphs (auto) Absolute Monos (auto) Absolute Eos (auto) Absolute Basos (auto) Absolute Nucleated RBC Nucleated RBC % APTT BUN Creatinine Est GFR ( Amer) Est GFR (Non-Af Amer) POC Glucose (mg/dL) 128 H Microbiology 09/23/18 13:39 Wound Gram Stain - Final Tissue - Right Leg Tissue Culture - Preliminary No Growth Day 1 09/23/18 13:39 Gram Stain - Final Wound - Ankle Right Wound Culture - Preliminary No Growth Day 1 09/23/18 13:39 Anaerobic Culture - Preliminary Wound No Growth Day 1 09/21/18 02:00 Aerobic Blood Culture - Preliminary Blood Venous No Growth Day 3 Anaerobic Blood Culture - Preliminary No Growth Day 3 09/21/18 01:34 Aerobic Blood Culture - Preliminary Blood Venous No Growth Day 3 Anaerobic Blood Culture - Final Not Reportable Assessment: 1. right leg cellulitis 2. chronic non pressure right ankle wound with underlying likely chronic osteomyelitis 3. obesity 4. diabetes, charcot arthropathy Plan: 1. change zosyn to ancef 2 gm IV Q8hrs day if osteo on path, if not will plan on two week course of abx.
--- NOTE | 2018-09-24 14:21 | PN ---
Progress Note - Progress Note Date of Service: 09/24/18 SOAP: Subjective: []Patient seen at bedside, right leg elevated. Pleasant, denies ankle or foot pain, nausea, CP, SOB. Objective: [] Vital Signs Temp 97.3 F 09/24/18 11:29 Pulse 58 09/24/18 11:29 Resp 16 09/24/18 11:29 BP 164/66 09/24/18 11:29 Pulse Ox 100 09/24/18 11:29 Intake & Output 09/23/18 09/24/18 09/24/18 18:59 06:59 18:59 Intake Total 2180 715 240 Output Total 800 0 Balance 2180 -85 240 Intake: IV Fluids 500 366 ABX - ZOSYN 231 KCL in Sterile Water 135 ns 500 IVPB 215 ABX - ZOSYN 105 KCL in Sterile Water 110 Heparin 134 Oral 1680 0 240 Output: Urine 800 0 Other: Estimated Void Medium Medium # Bowel Movements 2 1 Estimated Stool Amount Medium # Voids 1 1 Laboratory Results - last 24 hr 09/23/18 09/23/18 09/23/18 15:29 16:26 19:57 WBC RBC Hgb Hct MCV MCH MCHC RDW Plt Count MPV Neut % (Auto) Lymph % (Auto) [place] % (Auto) Eos % (Auto) Baso % (Auto) Absolute Neuts (auto) Absolute Lymphs (auto) Absolute Monos (auto) Absolute Eos (auto) Absolute Basos (auto) Absolute Nucleated RBC Nucleated RBC % APTT 36.4 BUN 62 H Creatinine 3.71 H Est GFR ( Amer) 15.1 Est GFR (Non-Af Amer) 12.5 POC Glucose (mg/dL) 137 H 09/23/18 09/23/18 09/23/18 19:57 19:57 21:00 WBC 11.7 H RBC 3.24 L Hgb 8.3 L Hct 26 L MCV 80 MCH 26 L MCHC 32 RDW 16 H Plt Count 227 MPV 7.7 Neut % (Auto) 75.2 Lymph % (Auto) 13.4 [place] % (Auto) 7.1 Eos % (Auto) 3.8 Baso % (Auto) 0.5 Absolute Neuts (auto) 8.8 H Absolute Lymphs (auto) 1.6 Absolute Monos (auto) 0.8 Absolute Eos (auto) 0.4 Absolute Basos (auto) 0.1 Absolute Nucleated RBC 0.0 Nucleated RBC % 0.0 APTT 35.7 BUN Creatinine Est GFR ( Amer) Est GFR (Non-Af Amer) POC Glucose (mg/dL) 114 H 09/24/18 09/24/18 09/24/18 07:20 07:20 08:54 WBC 10.4 RBC 3.47 L Hgb 9.1 L Hct 27 L MCV 79 L MCH 26 L MCHC 33 RDW 16 H Plt Count 256 MPV 7.8 Neut % (Auto) 73.8 Lymph % (Auto) 14.7 [place] % (Auto) 6.7 Eos % (Auto) 4.0 Baso % (Auto) 0.8 Absolute Neuts (auto) 7.7 Absolute Lymphs (auto) 1.5 Absolute Monos (auto) 0.7 Absolute Eos (auto) 0.4 Absolute Basos (auto) 0.1 Absolute Nucleated RBC 0.0 Nucleated RBC % 0.0 APTT 58.7 H BUN Creatinine Est GFR ( Amer) Est GFR (Non-Af Amer) POC Glucose (mg/dL) 124 H 09/24/18 11:49 WBC RBC Hgb Hct MCV MCH MCHC RDW Plt Count MPV Neut % (Auto) Lymph % (Auto) [place] % (Auto) Eos % (Auto) Baso % (Auto) Absolute Neuts (auto) Absolute Lymphs (auto) Absolute Monos (auto) Absolute Eos (auto) Absolute Basos (auto) Absolute Nucleated RBC Nucleated RBC % APTT BUN Creatinine Est GFR ( Amer) Est GFR (Non-Af Amer) POC Glucose (mg/dL) 128 H Microbiology 09/23/18 13:39 Wound Gram Stain - Final Tissue - Right Leg Tissue Culture - Preliminary No Growth Day 1 09/23/18 13:39 Gram Stain - Final Wound - Ankle Right Wound Culture - Preliminary No Growth Day 1 09/23/18 13:39 Anaerobic Culture - Preliminary Wound No Growth Day 1 09/21/18 02:00 Aerobic Blood Culture - Preliminary Blood Venous No Growth Day 3 Anaerobic Blood Culture - Preliminary No Growth Day 3 09/21/18 01:34 Aerobic Blood Culture - Preliminary Blood Venous No Growth Day 3 Anaerobic Blood Culture - Final Not Reportable 09/22/18 12:00 Skin and Soft Tissue MRSA/MSSA (PCR - Final Foot Right Mrsa Negative S.aureus Positive Gram Stain - Final 09/21/18 01:08 Urine Culture - Final Urine 09/21/18 16:00 Stool Occult Blood (CARMINE) - Final Stool Right ankle wound vac sealed and running small around dried bloody drainage at heel area calf non tender Assessment: []s/p I&D chronic lateral ankle wound, wound vac placement cellulitis RLE probable osteo distal fibula- awaiting path Plan: []Per Dr. Ferguson, change zosyn to ancef 2 gm IV Q8hrs day if osteo on pathology, if not will plan on two week course of abx. NWB RLE Wound vac
[2018-09-24] MEDS: ceFAZolin 1 GM ADVAN(*) 1 GM in NS 0.9% 50 ML* 50 ML IVPB SCH (17:52)
[2018-09-24] MEDS: Warfarin TAB(*) 5 MG PO SCH (17:52)
[2018-09-24] MEDS: SEMAGLUTIDE INJ SCH (21:42)
[2018-09-25] MEDS: ceFAZolin 1 GM ADVAN(*) 1 GM in NS 0.9% 50 ML* 50 ML IVPB SCH ×2 (03:18→15:38)
[2018-09-25] MEDS: NS 0.9% 1000 ML** 1,000 ML IV SCH (03:19)
[2018-09-25 06:58] LABS: Hematocrit 26 % (35-47); Hemoglobin 8.6 g/dL (12.0-16.0); Mean Corpuscular HGB Conc 34 g/dL (31-36); Mean Corpuscular Hemoglobin 27 pg (27-31); Mean Corpuscular Volume 79 fL (80-97); Mean Platelet Volume 7.5 fL (7.4-10.4); Platelet Count 283 10^3/uL (150-450); Red Blood Count 3.22 10^6 /uL (3.70-4.87); Red Cell Distribution Width 16 % (10-15); White Blood Count 10.9 10^3/uL (3.5-10.8)
[2018-09-25 06:59] LABS: Activated Partial Thrombo Time 78.2 seconds (26.0-38.0); INR 1.63 (0.82-1.09)
[2018-09-25 07:16] LABS: EGFR African American 20.8 (>60); EGFR Non-African American 17.2 (>60)
--- NOTE | 2018-09-25 07:29 | PN ---
<Elisabeth Morales - Last Filed: 09/25/18 12:56> Subjective Date of Service: 09/25/18 Interval History: No overnight issues. Patient felt better generally, no complain of CP, SOB. Highly motivated for rehab. Labs: INR still subtherapeutic, creatinine back to baseline. Objective Active Medications: Acetaminophen (Tylenol Tab*) 650 mg PO Q4H PRN PRN Reason: FEVER/PAIN Last Admin: 09/22/18 21:50 Dose: 650 mg Allopurinol (Zyloprim Tab*) 100 mg PO DAILY WITH MEAL [facility] Last Admin: 09/24/18 10:47 Dose: 100 mg Atorvastatin Calcium (Lipitor*) [address] [facility] Last Admin: 09/24/18 10:45 Dose: 40 mg Famotidine (Pepcid Tab*) [address] [facility] Last Admin: 09/24/18 10:45 Dose: 20 mg Ferrous Gluconate (Fergon Tab*) [address] [facility] Last Admin: 09/24/18 21:41 Dose: 324 mg Heparin Sodium (Porcine) (Heparin Vial(*)) 0 units IV .PER PROTOCOL [facility] Hydromorphone HCl (Dilaudid Inj1s*) 0.5 mg IV SLOW PU Q6H PRN PRN Reason: PAIN - MODERATE Last Admin: 09/24/18 00:46 Dose: 0.5 mg Sodium Chloride (Ns 0.9% 1000 Ml) 1,000 mls @ 50 mls/hr IV .PER RATE [facility] Last Admin: 09/25/18 03:19 Dose: 50 mls/hr Heparin Sodium/Dextrose (Heparin Drip 25,000 Units(*)) 25,000 units in 500 mls @ 0 mls/hr IV PER RATE [facility]; Protocol Last Admin: 09/24/18 21:04 Dose: 28 mls/hr Cefazolin Sodium 1 gm/ Sodium (Chloride) 50 mls @ 200 mls/hr IVPB Q12H [facility] Last Admin: 09/25/18 03:18 Dose: 200 mls/hr Insulin Human Lispro (Humalog*) [address] [facility]; Protocol Last Admin: 09/24/18 21:29 Dose: Not Given Pto: Semaglutide [ (Ozempic] Pen) 0 units INJ Fr@2100 [facility] Last Admin: 09/24/18 21:42 Dose: 0.25 units Sodium Bicarbonate (Sodium Bicarbonate (Antacid)*) 325 mg PO BID [facility] Last Admin: 09/24/18 21:41 Dose: 325 mg Tramadol HCl (Ultram*) 50 mg PO Q8H PRN PRN Reason: PAIN SEVERE Last Admin: 09/22/18 21:49 Dose: 50 mg Warfarin Sodium (Coumadin Tab(*)) 5 mg PO DAILY@1700 [facility]; Protocol Last Admin: 09/24/18 17:52 Dose: 5 mg Vital Signs - 8 hr 09/24/18 09/25/18 23:54 04:27 Temperature 98.3 F 98.4 F Pulse Rate 66 66 Respiratory 18 16 Rate Blood Pressure 156/64 148/61 (mmHg) O2 Sat by Pulse 94 96 Oximetry Oxygen Devices in Use Now: None Exam: Generally well Heart: normal S1S2 Lung: clear Abdomen: soft, non tender LL: right calve tender->present earlier, status quo, right leg redness improved. 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 - Patient Problems (1) Sepsis Current Visit: Yes Status: Acute Comment: - Due to right leg cellulits, cannot rule out right foot osteomyelitis - bld culture neg, wound cs MSSA - started on iv zosyn and vancomycin, converted to cefazolin based on wound c/s ; D5 Abx tx currently. (2) Charcot foot due to diabetes mellitus Current Visit: Yes Status: Acute Code(s): E11.610 - TYPE 2 DIABETES MELLITUS W DIABETIC NEUROPATHIC ARTHROPATHY SNOMED Code(s): 968284095 Comment: b/g bilateral charcot foot right side ulcer, prulent discharge seen, culture sent MRI foot done: bone marrow edema noted in surrounding bones, OM cannot be excluded right foot I&D and right fibula saucerization done. a/w pathology result to decide abx treatment (3) Cellulitis Current Visit: Yes Status: Acute Code(s): L03.90 - CELLULITIS, UNSPECIFIED SNOMED Code(s): 536024207 Comment: As described above (4) UTI (urinary tract infection) Current Visit: Yes Status: Acute Comment: Pyuria but urine culture neg (5) Troponin level elevated Current Visit: Yes Status: Acute Code(s): R74.8 - ABNORMAL LEVELS OF OTHER SERUM ENZYMES SNOMED Code(s): 774139504 Comment: Likely demand due to sepsis No ECG changes, no chest pain (6) CORTNEY (acute kidney injury) Current Visit: Yes Status: Acute Code(s): N17.9 - ACUTE KIDNEY FAILURE, UNSPECIFIED SNOMED Code(s): 83808538 Comment: CORTNEY on top of CKD cause: sepsis and also dehydration hydration with good effect Creatnine back to baseline (7) Diabetes mellitus Current Visit: No Status: Acute Code(s): E11.9 - TYPE 2 DIABETES MELLITUS WITHOUT COMPLICATIONS SNOMED Code(s): 28105375 Comment: - just started GLP-1 one week before admission - complained of nausea with new med - put on sliding scale while inpatient (8) Hypertension Current Visit: No Status: Acute Code(s): I10 - ESSENTIAL (PRIMARY) HYPERTENSION SNOMED Code(s): 75654124 Comment: - Continue labetelol and lasix (9) Pulmonary thromboembolism Current Visit: No Status: Acute Code(s): I26.99 - OTHER PULMONARY EMBOLISM WITHOUT ACUTE COR PULMONALE SNOMED Code(s): 704809437 Comment: history of PE on senior care coumadin restart coumadin with heparin bridging post op (10) Subtherapeutic international normalized ratio (INR) Current Visit: Yes Status: Acute Code(s): R79.1 - ABNORMAL COAGULATION PROFILE SNOMED Code(s): 516338487 Comment: - INR not reaching 2 on adm - convert to therapeutic dose of heparin due to operation - restarted warfarin, bridging with heaprin, not reaching INR yet - may need outpt warfarin dose adjustment outpt (11) DVT prophylaxis Current Visit: No Status: Acute Code(s): OEJ9006 - SNOMED Code(s): 225135997 Comment: -As above Status and Disposition: Inpatient medicine, plan for PMRU transfer on Thursday Attestation Documenting Resident: Elisabeth Morales Supervising Physician: Devon Andersen Attestation: This service has been performed in part by a resident under the direction of a teaching physician.I, Devon Andersen, performed the service, or was physically present during the critical, or thakur portions of the service, furnished by the resident. I participated in the management of the patient. <Mayelin Andersen - Last Filed: 09/25/18 16:43> Objective Active Medications: Acetaminophen (Tylenol Tab*) 650 mg PO Q4H PRN PRN Reason: FEVER/PAIN Last Admin: 09/22/18 21:50 Dose: 650 mg Allopurinol (Zyloprim Tab*) 100 mg PO DAILY WITH MEAL [facility] Last Admin: 09/25/18 09:08 Dose: 100 mg Atorvastatin Calcium (Lipitor*) 40 mg PO DAILY [facility] Last Admin: 09/25/18 09:08 Dose: 40 mg Famotidine (Pepcid Tab*) 20 mg PO DAILY [facility] Last Admin: 09/25/18 09:07 Dose: 20 mg Ferrous Gluconate (Fergon Tab*) [address] [facility] Last Admin: 09/25/18 15:09 Dose: 324 mg Heparin Sodium (Porcine) (Heparin Vial(*)) 0 units IV .PER PROTOCOL [facility] Hydromorphone HCl (Dilaudid Inj1s*) 0.5 mg IV SLOW PU Q6H PRN PRN Reason: PAIN - MODERATE Last Admin: 09/24/18 00:46 Dose: 0.5 mg Heparin Sodium/Dextrose (Heparin Drip 25,000 Units(*)) 25,000 units in 500 mls @ 0 mls/hr IV PER RATE [facility]; Protocol Last Admin: 09/24/18 21:04 Dose: 28 mls/hr Cefazolin Sodium 1 gm/ Sodium (Chloride) 50 mls @ 200 mls/hr IVPB Q12H [facility] Last Admin: 09/25/18 15:38 Dose: 200 mls/hr Insulin Human Lispro (Humalog*) [address] [facility]; Protocol Last Admin: 09/25/18 12:56 Dose: Not Given Labetalol HCl (Trandate Tab*) [address] [facility] Last Admin: 09/25/18 09:08 Dose: 200 mg Pto: Semaglutide [ (Ozempic] Pen) 0 units INJ Fr@2100 [facility] Last Admin: 09/24/18 21:42 Dose: 0.25 units Sodium Bicarbonate (Sodium Bicarbonate (Antacid)*) [address] [facility] Last Admin: 09/25/18 09:08 Dose: 325 mg Tramadol HCl (Ultram*) 50 mg PO Q8H PRN PRN Reason: PAIN SEVERE Last Admin: 09/22/18 21:49 Dose: 50 mg Warfarin Sodium (Coumadin Tab(*)) 5 mg PO DAILY@1700 [facility]; Protocol Last Admin: 09/24/18 17:52 Dose: 5 mg Result Diagrams: 09/25/18 06:37 09/25/18 06:37 Assess/Plan/Problems-Billing Assessment: Attestation Supervising Physician: Mayelin Andersen Attending/Supervising Physician Comment: Lillian is in good spirits. Her writing group is coming in to visit her today. No complaints. Warfarin resumed yesterday at increased dose from home dose-- she admits she had missed a few INR checks and hadn't been following up as she shoudl have. Heparin drip therapeutic. No bleeding and hgb is stable. PT recommending PMRU; I agree with this plan and she is very motivated for rehab. Will await a therapeutic INR (2-3) for history of unprovoked DVT/PE. DC IVF, renal function at baseline
[2018-09-25 08:10] LABS: Microcytosis 1+; Polychromasia 1+
[2018-09-25 08:11] LABS: ABS Eosinophils 0.4 10^3/ul (0-0.6); ABS Lymphocytes 2.1 10^3/ul (1.0-4.8); ABS Monocytes 0.8 10^3/ul (0-0.8); ABS Neutrophils 7.5 10^3/ul (1.5-7.7); Eosinophil % 3.8 %; Lymphocyte % 19.3 %; Nucleated Red Blood Cells % 0.2
[2018-09-25] MEDS: Insulin LISPRO* 1 UNITS UNIT SUBCUT SCH ×4 (08:37→20:59)
[2018-09-25] MEDS: Famotidine TAB* 20 MG PO SCH (09:07)
[2018-09-25] MEDS: Ferrous Gluconate TAB* 324 MG TAB PO SCH ×3 (09:08→20:21)
[2018-09-25] MEDS: Labetalol TAB* 200 MG PO SCH ×2 (09:08→20:21)
[2018-09-25] MEDS: Sodium Bicarbonate (ANTACID)* 650 MG TAB PO SCH ×2 (09:08→20:21)
[2018-09-25] MEDS: Atorvastatin* 40 MG TAB PO SCH (09:08)
[2018-09-25] MEDS: Allopurinol TAB* 100 MG PO SCH (09:08)
--- NOTE | 2018-09-25 11:39 | PN ---
Progress Note - Progress Note Date of Service: 09/25/18 SOAP: Subjective: [Pt was seen this am lying in bed. She denies any chest pain, sob, numbness or tingling, no complaints currently. ] Objective: Right ankle wound vac sealed and running small around dried bloody drainage at heel area calf is tender to palpation, she states that she has had tenderness in the calf d/t cellulitis Vital Signs Temp 98.4 F 09/25/18 04:27 Pulse 66 09/25/18 04:27 Resp 16 09/25/18 08:00 BP 148/61 09/25/18 04:27 Pulse Ox 96 09/25/18 04:27 Intake & Output 09/24/18 09/25/18 09/25/18 18:59 06:59 18:59 Intake Total 952.5 1605 Output Total 0 Balance 952.5 1605 Intake: IV Fluids 561 Cefazolin 100 NS 461 IVPB 803 ABX - ZOSYN 100 Cefazolin 50 NS 653 Heparin 352.5 241 Oral 600 0 Output: Urine 0 Other: Estimated Void Medium # Bowel Movements 1 2 Estimated Stool Amount Large # Voids 1 Assessment: []s/p I&D chronic lateral ankle wound, wound vac placement cellulitis RLE Plan: []Per Dr. Ferguson, change zosyn to ancef 2 gm IV Q8hrs day if osteo on pathology, if not will plan on two week course of abx. NWB RLE Wound vac Possible PMRU on thursday ]
[2018-09-25] MEDS: Heparin DRIP 25,000 UNITS(*) 25,000 UNITS/500 ML BAG IV SCH (16:27)
[2018-09-25] MEDS: Warfarin TAB(*) 5 MG PO SCH (16:33)
[2018-09-25] MEDS: HYDROmorphone INJ1* 1 MG/ML SYRINGE IV SLOW PU PRN (20:21)
[2018-09-26] MEDS: ceFAZolin 1 GM ADVAN(*) 1 GM in NS 0.9% 50 ML* 50 ML IVPB SCH ×2 (03:19→15:57)
[2018-09-26 07:06] LABS: INR 1.69 (0.82-1.09)
[2018-09-26 07:09] LABS: Hematocrit 26 % (35-47); Hemoglobin 8.6 g/dL (12.0-16.0); Mean Corpuscular HGB Conc 33 g/dL (31-36); Mean Corpuscular Hemoglobin 26 pg (27-31); Mean Corpuscular Volume 79 fL (80-97); Mean Platelet Volume 7.6 fL (7.4-10.4); Platelet Count 317 10^3/uL (150-450); Red Cell Distribution Width 16 % (10-15); White Blood Count 12.5 10^3/uL (3.5-10.8)
[2018-09-26 07:36] LABS: ABS Basophils 0.1 10^3/ul (0-0.2); ABS Eosinophils 0.3 10^3/ul (0-0.6); ABS Lymphocytes 1.9 10^3/ul (1.0-4.8); ABS Monocytes 0.9 10^3/ul (0-0.8); ABS Neutrophils 9.3 10^3/ul (1.5-7.7); Eosinophil % 2.5 %; Lymphocyte % 15.3 %; Nucleated Red Blood Cells % 0.2
--- NOTE | 2018-09-26 09:06 | PN ---
Subjective Date of Service: 09/26/18 Interval History: Lillian feels good this morning. She has no complaints. Her friends came to visit yesterday. Appetite is good. No bleeding. No pain. Afebrile, Tmax 99. Family History: Unchanged from Admission Social History: Unchanged from Admission Past Medical History: Unchanged from Admission Objective Active Medications: Acetaminophen (Tylenol Tab*) 650 mg PO Q4H PRN PRN Reason: FEVER/PAIN Last Admin: 09/22/18 21:50 Dose: 650 mg Allopurinol (Zyloprim Tab*) 100 mg PO DAILY WITH MEAL [facility] Last Admin: 09/25/18 09:08 Dose: 100 mg Atorvastatin Calcium (Lipitor*) 40 mg PO DAILY [facility] Last Admin: 09/25/18 09:08 Dose: 40 mg Famotidine (Pepcid Tab*) 20 mg PO DAILY [facility] Last Admin: 09/25/18 09:07 Dose: 20 mg Ferrous Gluconate (Fergon Tab*) 324 mg PO TID [facility] Last Admin: 09/25/18 20:21 Dose: 324 mg Heparin Sodium (Porcine) (Heparin Vial(*)) 0 units IV .PER PROTOCOL [facility] Hydromorphone HCl (Dilaudid Inj1s*) 0.5 mg IV SLOW PU Q6H PRN PRN Reason: PAIN - MODERATE Last Admin: 09/25/18 20:21 Dose: 0.5 mg Heparin Sodium/Dextrose (Heparin Drip 25,000 Units(*)) 25,000 units in 500 mls @ 0 mls/hr IV PER RATE [facility]; Protocol Last Admin: 09/25/18 16:27 Dose: 28 mls/hr Cefazolin Sodium 1 gm/ Sodium (Chloride) 50 mls @ 200 mls/hr IVPB Q12H [facility] Last Admin: 09/26/18 03:19 Dose: 200 mls/hr Insulin Human Lispro (Humalog*) 0 units SUBCUT ACHS [facility]; Protocol Last Admin: 09/25/18 20:59 Dose: 2 units Labetalol HCl (Trandate Tab*) 200 mg PO BID [facility] Last Admin: 09/25/18 20:21 Dose: 200 mg Pto: Semaglutide [ (Ozempic] Pen) 0 units INJ Fr@2100 [facility] Last Admin: 09/24/18 21:42 Dose: 0.25 units Sodium Bicarbonate (Sodium Bicarbonate (Antacid)*) 325 mg PO BID [facility] Last Admin: 09/25/18 20:21 Dose: 325 mg Tramadol HCl (Ultram*) 50 mg PO Q8H PRN PRN Reason: PAIN SEVERE Last Admin: 09/22/18 21:49 Dose: 50 mg Warfarin Sodium (Coumadin Tab(*)) 5 mg PO DAILY@1700 [facility]; Protocol Last Admin: 09/25/18 16:33 Dose: 5 mg Vital Signs - 8 hr 09/26/18 09/26/18 02:49 03:21 Temperature 99.0 F Pulse Rate 81 Respiratory 16 16 Rate Blood Pressure 146/68 (mmHg) O2 Sat by Pulse 95 Oximetry Oxygen Devices in Use Now: None Appearance: alert, sitting on edge of bed, well appearing Eyes: No Scleral Icterus Ears/Nose/Mouth/Throat: NL Teeth, Lips, Gums Neck: NL Appearance and Movements; NL JVP Respiratory: Symmetrical Chest Expansion and Respiratory Effort, Clear to Auscultation Cardiovascular: NL Sounds; No Murmurs; No JVD, RRR Abdominal: NL Sounds; No Tenderness; No Distention Lymphatic: No Cervical Adenopathy Extremities: - - 3+ edema R leg, 2+ L. wound vac in place R ankle draining bloody fluid. Neurological: Alert and Oriented x 3 Result Diagrams: 09/26/18 06:53 09/25/18 06:37 Microbiology and Other Data: Microbiology 09/21/18 16:00 Stool Occult Blood (CARMINE) - Final Stool Assess/Plan/Problems-Billing Assessment: This is a 58 year old woman with history of DM, anemia, CKD, unprovoked DVT/PE, charcot foot who presented to the ED on 09/21 with heel pain and was found to have R leg cellulitis and a R lateral malleolus ulcer. She went to the OR with ortho on 09/23 for an I&D/washout, now with wound vac. - Patient Problems (1) Sepsis Current Visit: Yes Status: Acute Comment: Resolved Soft tissue source, blood cultures negative Adequately volume resuscitated (2) Cellulitis Current Visit: Yes Status: Acute Code(s): L03.90 - CELLULITIS, UNSPECIFIED SNOMED Code(s): 738221586 Comment: with abscess POD #4 I&D wound growing MSSA continue cefazolin (per ID); day 6 of antibiotics (3) CORTNEY (acute kidney injury) Current Visit: Yes Status: Acute Code(s): N17.9 - ACUTE KIDNEY FAILURE, UNSPECIFIED SNOMED Code(s): 76565860 Comment: on CKD likely related to severe sepsis renal function back to baseline of note, she does not have a retail pos specialist and I have recommended to her that she establish with Dr. Caballero after discharge (4) Charcot foot due to diabetes mellitus Current Visit: Yes Status: Acute Code(s): E11.610 - TYPE 2 DIABETES MELLITUS W DIABETIC NEUROPATHIC ARTHROPATHY SNOMED Code(s): 074010826 Comment: b/g bilateral charcot foot right side ulcer, prulent discharge seen, culture sent MRI foot done: bone marrow edema noted in surrounding bones, OM cannot be excluded right foot I&D and right fibula saucerization done. a/w pathology result to decide abx treatment (5) Subtherapeutic international normalized ratio (INR) Current Visit: Yes Status: Acute Code(s): R79.1 - ABNORMAL COAGULATION PROFILE SNOMED Code(s): 603341641 Comment: warfarin restarted on 09/24 post-op, so tomorrow will better reflect current dosing INR was subtherapeutic at admission on home dose (she admitted to missing several INR checks), so I increased her home dose (6) Troponin level elevated Current Visit: Yes Status: Acute Code(s): R74.8 - ABNORMAL LEVELS OF OTHER SERUM ENZYMES SNOMED Code(s): 978921768 Comment: Likely demand due to sepsis No ECG changes, no chest pain Pre-op stress test was low risk (7) Anemia Current Visit: No Status: Acute Code(s): D64.9 - ANEMIA, UNSPECIFIED SNOMED Code(s): 345900362 Comment: microcytic and chronic spep has been negative for monoclonal spike in 2018 she has had an egd/colonscopy which she reports was positive for an ulcer but subsequent egd/colons were negative within the past few years continue po iron (8) Diabetes mellitus Current Visit: No Status: Acute Code(s): E11.9 - TYPE 2 DIABETES MELLITUS WITHOUT COMPLICATIONS SNOMED Code(s): 00729287 Comment: BGs are acceptable on semaglutide (weekly) and lispro (9) Hypercoagulable state Current Visit: No Status: Acute Code(s): D68.59 - OTHER PRIMARY THROMBOPHILIA SNOMED Code(s): 10968484 Comment: was bridged throughout hospitalization and perioperatively remains on heparin drip until INR therapeutic (10) Hypertension Current Visit: No Status: Acute Code(s): I10 - ESSENTIAL (PRIMARY) HYPERTENSION SNOMED Code(s): 85132699 Comment: will resume lasix for tomororw; hold chlorthalidone, may not be the best choice for her Status and Disposition: Will be appropriate for PMRU once INR > 2; remains on heparin drip until then.
[2018-09-26] MEDS: Allopurinol TAB* 100 MG PO SCH (09:55)
[2018-09-26] MEDS: Labetalol TAB* 200 MG PO SCH ×2 (09:55→21:38)
[2018-09-26] MEDS: Insulin LISPRO* 1 UNITS UNIT SUBCUT SCH ×4 (09:55→21:38)
[2018-09-26] MEDS: Famotidine TAB* 20 MG PO SCH (09:55)
[2018-09-26] MEDS: Atorvastatin* 40 MG TAB PO SCH (09:55)
[2018-09-26] MEDS: Ferrous Gluconate TAB* 324 MG TAB PO SCH ×3 (09:55→21:38)
--- NOTE | 2018-09-26 10:10 | PN ---
Progress Note - Progress Note Date of Service: 09/26/18 SOAP: Subjective: [Pt was seen this am lying in bed. She denies any chest pain, sob, numbness or tingling, no complaints currently. ] Objective: Right ankle wound vac sealed and running calf is tender to palpation, she states that she has had tenderness in the calf d/t cellulitis Vital Signs Temp 99.0 F 09/26/18 03:21 Pulse 81 09/26/18 03:21 Resp 16 09/26/18 03:21 BP 146/68 09/26/18 03:21 Pulse Ox 95 09/26/18 03:21 Intake & Output 09/25/18 09/26/18 09/26/18 18:59 06:59 18:59 Intake Total 1357 793 Output Total 400 Balance 1357 393 Intake: IV Fluids 182 NS 182 IVPB 50 Cefazolin 50 Heparin 335 263 Oral 840 480 Output: Urine 400 Other: Estimated Void Small # Bowel Movements 1 Estimated Stool Amount Large # Voids 1 Assessment: []s/p I&D chronic lateral ankle wound, wound vac placement cellulitis RLE Plan: []Per Dr. Ferguson, change zosyn to ancef 2 gm IV Q8hrs day if osteo on pathology, if not will plan on two week course of abx. NWB RLE Wound vac to be changed tomorrow at bedside by Dr. Jean-Baptiste ]
[2018-09-26] MEDS: Sodium Bicarbonate (ANTACID)* 650 MG TAB PO SCH ×2 (10:27→21:39)
[2018-09-26] MEDS: Warfarin TAB(*) 5 MG PO SCH (19:58)
[2018-09-26] MEDS: HYDROmorphone INJ1* 1 MG/ML SYRINGE IV SLOW PU PRN (21:37)
[2018-09-27] MEDS: ceFAZolin 1 GM ADVAN(*) 1 GM in NS 0.9% 50 ML* 50 ML IVPB SCH ×2 (03:21→15:20)
[2018-09-27] MEDS: Acetaminophen TAB* 325 MG PO PRN ×2 (03:27→22:09)
[2018-09-27] MEDS: traMADol TAB* 50 MG PO PRN (03:27)
[2018-09-27 06:07] LABS: ABS Basophils 0.1 10^3/ul (0-0.2); ABS Eosinophils 0.3 10^3/ul (0-0.6); ABS Lymphocytes 1.9 10^3/ul (1.0-4.8); ABS Neutrophils 9.6 10^3/ul (1.5-7.7); Eosinophil % 2.2 %; Hematocrit 26 % (35-47); Hemoglobin 8.1 g/dL (12.0-16.0); Lymphocyte % 14.7 %; Mean Corpuscular HGB Conc 31 g/dL (31-36); Mean Corpuscular Hemoglobin 25 pg (27-31); Mean Corpuscular Volume 80 fL (80-97); Mean Platelet Volume 7.4 fL (7.4-10.4); Nucleated Red Blood Cells % 0.1; Platelet Count 312 10^3/uL (150-450); Red Blood Count 3.26 10^6 /uL (3.70-4.87); Red Cell Distribution Width 16 % (10-15); White Blood Count 12.9 10^3/uL (3.5-10.8)
[2018-09-27 06:11] LABS: INR 1.88 (0.82-1.09)
[2018-09-27 06:30] LABS: BUN/Creatinine Ratio 12.4 (8-20); Calcium 9.2 mg/dL (8.6-10.3); EGFR African American 23.9 (>60); EGFR Non-African American 19.7 (>60); Potassium 3.8 mmol/L (3.5-5.0)
[2018-09-27] MEDS: Insulin LISPRO* 1 UNITS UNIT SUBCUT SCH ×4 (08:42→20:41)
[2018-09-27] MEDS: Labetalol TAB* 200 MG PO SCH (08:47)
[2018-09-27] MEDS: Atorvastatin* 40 MG TAB PO SCH (08:48)
[2018-09-27] MEDS: Furosemide TAB* 20 MG PO SCH (08:48)
[2018-09-27] MEDS: Allopurinol TAB* 100 MG PO SCH (08:49)
[2018-09-27] MEDS: Sodium Bicarbonate (ANTACID)* 650 MG TAB PO SCH ×2 (08:49→20:34)
[2018-09-27] MEDS: Ferrous Gluconate TAB* 324 MG TAB PO SCH ×3 (08:49→20:34)
[2018-09-27] MEDS: Famotidine TAB* 20 MG PO SCH (08:51)
--- NOTE | 2018-09-27 14:37 | PN ---
Progress Note - Progress Note Date of Service: 09/27/18 SOAP: Subjective: []Pt seen at bedside. Denies fever or chills. Right lower leg pain is much improved. No pain of surgical site. Objective: []Gen: NAD, appears well RLE: Vac changed today. Wound measures 2 x 2.5 x 0.5 cm with some granulation tissue forming and bleeding from the wound bed. No purulence, no surrounding maceration, no surrounding erythema. New vac placed and good suction achieved. Lower leg erythema has resolved, minimally tender calf without palpable cords. Assessment: []POSTOPERATIVE DIAGNOSIS: Right diabetic lateral ankle ulcer with infection in setting of Charcot neuroarthropathy OPERATION: Right lateral ankle irrigation and debridement, distal fibula saucerization, placement of a wound VAC Plan: []ABX per ID. On cefazolin bedside cx show MSSA, intraop cx without growth NWB RLE Wound vac changed 09/27, needs vac change q3 days. Ready for DC from ortho standpoint, needs rehab placement PMRU unable to offer a bed due to duration of stay needed Vital Signs Temp 98.9 F 09/27/18 13:14 Pulse 70 09/27/18 13:14 Resp 20 09/27/18 13:14 BP 173/75 09/27/18 13:14 Pulse Ox 92 09/27/18 13:14 Intake & Output 09/26/18 09/27/18 09/27/18 18:59 06:59 18:59 Intake Total 550 284 50 Output Total 350 1400 Balance 200 -1116 50 Intake: IV Fluids 16 Cefazolin 16 IVPB 65 50 Cefazolin 65 50 Heparin 249 234 Oral 220 0 50 Output: Urine 350 1400 Other: Estimated Void Large # Bowel Movements 1 Estimated Stool Amount Medium # Voids 1 Laboratory Last Values WBC 12.9 10^3/uL (3.5-10.8) H 09/27/18 05:36 RBC 3.26 10^6 /uL (3.70-4.87) L 09/27/18 05:36 Hgb 8.1 g/dL (12.0-16.0) L 09/27/18 05:36 Hct 26 % (35-47) L 09/27/18 05:36 MCV 80 fL (80-97) 09/27/18 05:36 MCH 25 pg (27-31) L 09/27/18 05:36 MCHC 31 g/dL (31-36) 09/27/18 05:36 RDW 16 % (10-15) H 09/27/18 05:36 Plt Count 312 10^3/uL (150-450) 09/27/18 05:36 MPV 7.4 fL (7.4-10.4) 09/27/18 05:36 Neut % (Auto) 74.8 % 09/27/18 05:36 Lymph % (Auto) 14.7 % 09/27/18 05:36 [place] % (Auto) 7.9 % 09/27/18 05:36 Eos % (Auto) 2.2 % 09/27/18 05:36 Baso % (Auto) 0.4 % 09/27/18 05:36 Absolute Neuts (auto) 9.6 10^3/ul (1.5-7.7) H 09/27/18 05:36 Absolute Lymphs (auto) 1.9 10^3/ul (1.0-4.8) 09/27/18 05:36 Absolute Monos (auto) 1.0 10^3/ul (0-0.8) H 09/27/18 05:36 Absolute Eos (auto) 0.3 10^3/ul (0-0.6) 09/27/18 05:36 Absolute Basos (auto) 0.1 10^3/ul (0-0.2) 09/27/18 05:36 Absolute Nucleated RBC 0.0 10^3/ul 09/27/18 05:36 Immature Gran % 6.0 % (0-9) 09/26/18 06:53 Neutrophils % 70.0 % 09/26/18 06:53 Band Neutrophils % 1.0 % (0-8) 09/26/18 06:53 Lymphocytes % 16.0 % 09/26/18 06:53 Monocytes % 4.0 % 09/26/18 06:53 Eosinophils % 4.0 % 09/26/18 06:53 Metamyelocytes % 3.0 % (0-2) H 09/26/18 06:53 Myelocytes % 2.0 % (0-1) H 09/26/18 06:53 Nucleated RBC % 0.1 09/27/18 05:36 Normal RBC Morphology Normal (Normal) 09/26/18 06:53 Polychromasia 1+ 09/25/18 06:37 Microcytosis 1+ 09/25/18 06:37 INR (Anticoag Therapy) 1.88 (0.82-1.09) H 09/27/18 05:36 APTT 64.3 seconds (26.0-38.0) H 09/27/18 13:28 Sodium 138 mmol/L (135-145) 09/27/18 05:36 Potassium 3.8 mmol/L (3.5-5.0) 09/27/18 05:36 Chloride 106 mmol/L (101-111) 09/27/18 05:36 Carbon Dioxide 21 mmol/L (22-32) L 09/27/18 05:36 Anion Gap 11 mmol/L (2-11) 09/27/18 05:36 BUN 31 mg/dL (6-24) H 09/27/18 05:36 Creatinine 2.50 mg/dL (0.51-0.95) H 09/27/18 05:36 Est GFR ( Amer) 23.9 (>60) 09/27/18 05:36 Est GFR (Non-Af Amer) 19.7 (>60) 09/27/18 05:36 BUN/Creatinine Ratio 12.4 (8-20) 09/27/18 05:36 Glucose 113 mg/dL (70-100) H 09/27/18 05:36 POC Glucose (mg/dL) 182 mg/dL (70-100) H 09/27/18 10:55 Hemoglobin A1c 7.5 % (4.0-5.6) H 09/21/18 06:55 Lactic Acid 1.1 mmol/L (0.5-2.0) 09/21/18 02:00 Calcium 9.2 mg/dL (8.6-10.3) 09/27/18 05:36 Total Bilirubin 0.70 mg/dL (0.2-1.0) 09/21/18 02:00 AST 21 U/L (13-39) 09/21/18 02:00 ALT 9 U/L (7-52) 09/21/18 02:00 Alkaline Phosphatase 92 U/L (34-104) 09/21/18 02:00 Troponin I 0.03 ng/mL (<0.04) 09/21/18 10:21 C-Reactive Protein 392.05 mg/L (<8.01) H 09/21/18 02:00 B-Natriuretic Peptide 64 pg/mL (<=100) 09/21/18 02:00 Total Protein 8.0 g/dL (6.4-8.9) 09/21/18 02:00 Albumin 3.5 g/dL (3.2-5.2) 09/21/18 02:00 Globulin 4.5 g/dL (2-4) H 09/21/18 02:00 Albumin/Globulin Ratio 0.8 (1-3) L 09/21/18 02:00 Urine Color Yellow 09/21/18 01:08 Urine Appearance Cloudy 09/21/18 01:08 Urine pH 5.0 (5-9) 09/21/18 01:08 Ur Specific [place] 1.013 (1.010-1.030) 09/21/18 01:08 Urine Protein 3+(>=500 mg/dl) (Negative) A 09/21/18 01:08 Urine Ketones Negative (Negative) 09/21/18 01:08 Urine Blood 2+ (Negative) A 09/21/18 01:08 Urine Nitrate Negative (Negative) 09/21/18 01:08 Urine Bilirubin Negative (Negative) 09/21/18 01:08 Urine Urobilinogen Negative (Negative) 09/21/18 01:08 Ur Leukocyte Esterase 2+ (Negative) A 09/21/18 01:08 Urine WBC (Auto) 3+(>20/hpf) (Absent) A 09/21/18 01:08 Urine RBC (Auto) 3+(>10/hpf) (Absent) A 09/21/18 01:08 Ur Squamous Epith Cells Present (Absent) A 09/21/18 01:08 Urine Bacteria 3+ (Absent) A 09/21/18 01:08 Hyaline Casts Present (Absent) A 09/21/18 01:08 Urine Glucose Negative (Negative) 09/21/18 01:08 Random Vancomycin 16.3 mcg/mL 09/23/18 07:09
[2018-09-27] MEDS: Heparin DRIP 25,000 UNITS(*) 25,000 UNITS/500 ML BAG IV SCH (15:18)
--- NOTE | 2018-09-27 15:30 | PN ---
<Cayla Cervantes - Last Filed: 09/27/18 15:23> Subjective Date of Service: 09/27/18 Interval History: Patient is felling well. No any fresh complaint. Her blood pressure was on 160-170/65-80 mm Hg. INR is still subtherapeutic. Objective Active Medications: Acetaminophen (Tylenol Tab*) 650 mg PO Q4H PRN PRN Reason: FEVER/PAIN Last Admin: 09/27/18 03:27 Dose: 650 mg Allopurinol (Zyloprim Tab*) 100 mg PO DAILY WITH MEAL [facility] Last Admin: 09/27/18 08:49 Dose: 100 mg Atorvastatin Calcium (Lipitor*) 40 mg PO DAILY [facility] Last Admin: 09/27/18 08:48 Dose: 40 mg Famotidine (Pepcid Tab*) 20 mg PO DAILY [facility] Last Admin: 09/27/18 08:51 Dose: 20 mg Ferrous Gluconate (Fergon Tab*) 324 mg PO TID [facility] Last Admin: 09/27/18 08:49 Dose: 324 mg Furosemide (Lasix Tab*) 20 mg PO DAILY [facility] Last Admin: 09/27/18 08:48 Dose: 20 mg Heparin Sodium (Porcine) (Heparin Vial(*)) 0 units IV .PER PROTOCOL [facility] Hydromorphone HCl (Dilaudid Inj1s*) 0.5 mg IV SLOW PU Q6H PRN PRN Reason: PAIN - MODERATE Last Admin: 09/26/18 21:37 Dose: 0.5 mg Heparin Sodium/Dextrose (Heparin Drip 25,000 Units(*)) 25,000 units in 500 mls @ 0 mls/hr IV PER RATE [facility]; Protocol Last Admin: 09/25/18 16:27 Dose: 28 mls/hr Cefazolin Sodium 1 gm/ Sodium (Chloride) 50 mls @ 200 mls/hr IVPB Q12H [facility] Last Admin: 09/27/18 03:21 Dose: 200 mls/hr Insulin Human Lispro (Humalog*) 0 units SUBCUT ACHS [facility]; Protocol Last Admin: 09/27/18 12:23 Dose: 2 units Labetalol HCl (Trandate Tab*) 300 mg PO BID [facility] Pto: Semaglutide [ (Ozempic] Pen) 0 units INJ Fr@2100 [facility] Last Admin: 09/24/18 21:42 Dose: 0.25 units Sodium Bicarbonate (Sodium Bicarbonate (Antacid)*) 325 mg PO BID [facility] Last Admin: 09/27/18 08:49 Dose: 325 mg Tramadol HCl (Ultram*) 50 mg PO Q8H PRN PRN Reason: PAIN SEVERE Last Admin: 09/27/18 03:27 Dose: 50 mg Warfarin Sodium (Coumadin Tab(*)) 5 mg PO DAILY@1700 [facility]; Protocol Last Admin: 09/26/18 19:58 Dose: 5 mg Vital Signs - 8 hr 09/27/18 09/27/18 09/27/18 07:39 07:44 08:16 Temperature 98.5 F Pulse Rate 81 Respiratory 16 16 20 Rate Blood Pressure 168/67 (mmHg) O2 Sat by Pulse 97 93 Oximetry 09/27/18 13:14 Temperature 98.9 F Pulse Rate 70 Respiratory 20 Rate Blood Pressure 173/75 (mmHg) O2 Sat by Pulse 92 Oximetry Oxygen Devices in Use Now: Nasal Cannula Exam: Patient is sitting on a chair. HEENT: Atraumatic and normocephalic CHest: clear Heart: S1/S2; no any murmur or gallop Abdomen: Soft, nondistended and nontender. Normal bowel sound heard Extremity: Dressing wound on right ankle. Charcoat joints on b/l foot Neuro: Alert, oriented and conscious Result Diagrams: 09/27/18 05:36 09/27/18 05:36 Additional Lab and Data: Above labs were pulled in to the note, when the note was edited prior to signing. Please see below for labs from the day of the consultation. Laboratory Tests 09/21/18 09/21/18 09/21/18 02:00 06:55 06:55 WBC 22.0 H Hgb 9.2 L Hct 28 L Plt Count 213 Sodium 136 Potassium 3.7 Chloride 100 L Carbon Dioxide 21 L BUN 69 H Creatinine 4.50 H Glucose 119 H C-Reactive Protein 392.05 H Microbiology and Other Data: Microbiology 09/21/18 16:00 Stool Occult Blood (CARMINE) - Final Stool Diagnostic Imagin. Exam Date: 09/20/182337 - FOOT RIGHT 3+ VWS IMPRESSION: 1. DIFFUSE SOFT TISSUE SWELLING. 2. SEVERE CHARCOT ARTHROPATHY AND POSTSURGICAL CHANGES IN THE HINDFOOT. 3. THE STUDY IS LIMITED IN EVALUATION FOR OSTEOMYELITIS DUE TO THE CHARCOT JOINT CHANGES. Assess/Plan/Problems-Billing Assessment: This is a 58 year old woman with history of DM, anemia, CKD, unprovoked DVT/PE, charcot foot who presented to the ED on 09/21 with heel pain and was found to have R leg cellulitis and a R lateral malleolus ulcer. She went to the OR with ortho on 09/23 for an I&D/washout, now with wound vac. - Patient Problems (1) Right foot infection Current Visit: Yes Status: Acute Code(s): L08.9 - LOCAL INFECTION OF THE SKIN AND SUBCUTANEOUS TISSUE, UNSP SNOMED Code(s): 637476960 Comment: Right ankle wound; I and D done with fibula saucerization done. OM in conclusive Patient is on cefazolin: day 7 of abx (2) Cellulitis Current Visit: Yes Status: Acute Code(s): L03.90 - CELLULITIS, UNSPECIFIED SNOMED Code(s): 915014511 Comment: with abscess POD #4 I&D wound growing MSSA continue cefazolin (per ID); day 7 of antibiotics (3) Anemia Current Visit: Yes Status: Acute Code(s): D64.9 - ANEMIA, UNSPECIFIED SNOMED Code(s): 244722902 Comment: On oral iron (4) Charcot foot due to diabetes mellitus Current Visit: Yes Status: Acute Code(s): E11.610 - TYPE 2 DIABETES MELLITUS W DIABETIC NEUROPATHIC ARTHROPATHY SNOMED Code(s): 773505759 Comment: bilateral charcot foot right side ulcer, prulent discharge seen, culture was negative MRI foot done: bone marrow edema noted in surrounding bones, OM cannot be excluded right foot I&D and right fibula saucerization done. a/w pathology result to decide abx treatment (5) Subtherapeutic international normalized ratio (INR) Current Visit: Yes Status: Acute Code(s): R79.1 - ABNORMAL COAGULATION PROFILE SNOMED Code(s): 173914874 Comment: warfarin restarted on 09/24 post-op, INR was subtherapeutic at admission on home dose (she admitted to missing several INR checks), Her INR is 1.88 on 5 mg of warfarin Target INR is 2-3. (6) Troponin level elevated Current Visit: Yes Status: Acute Code(s): R74.8 - ABNORMAL LEVELS OF OTHER SERUM ENZYMES SNOMED Code(s): 729967794 Comment: Likely demand due to sepsis No ECG changes, no chest pain Pre-op stress test was low risk (7) Acute on chronic renal insufficiency Current Visit: No Status: Acute Code(s): N28.9 - DISORDER OF KIDNEY AND URETER, UNSPECIFIED; N18.9 - CHRONIC KIDNEY DISEASE, UNSPECIFIED SNOMED Code(s ): 394916572 Comment: Creatinine is on baseline now -Continue watchful waiting (8) Diabetes mellitus Current Visit: No Status: Acute Code(s): E11.9 - TYPE 2 DIABETES MELLITUS WITHOUT COMPLICATIONS SNOMED Code(s): 18322734 Comment: BGs are acceptable on semaglutide (weekly) and lispro (9) Hypertension Current Visit: No Status: Acute Code(s): I10 - ESSENTIAL (PRIMARY) HYPERTENSION SNOMED Code(s): 14924544 Comment: Her systolic blood pressure was high in 160-170. Labetalol changed to 300 mg BID. Furosemide 20 mg daily (10) Pulmonary thromboembolism Current Visit: No Status: Acute Code(s): I26.99 - OTHER PULMONARY EMBOLISM WITHOUT ACUTE COR PULMONALE SNOMED Code(s): 417723151 Comment: history of PE on [place] agent coumadin INR is subtherapeutic (11) DVT prophylaxis Current Visit: No Status: Acute Code(s): ZVJ3580 - SNOMED Code(s): 664945407 Comment: -As above Status and Disposition: Medicine inpatient. Once INR is >2 can be discharged to [facility] Attending: Tahnh Cadena Attestation Documenting Resident: Cayla Cevrantes Supervising Physician: Thanh Cadena Attestation: This service has been performed in part by a resident under the direction of a teaching physician.I, Thanh Cadena, performed the service, or was physically present during the critical, or thakur portions of the service, furnished by the resident. I participated in the management of the patient. <Thanh Cadena - Last Filed: 09/27/18 18:28> Objective Active Medications: Acetaminophen (Tylenol Tab*) 650 mg PO Q4H PRN PRN Reason: FEVER/PAIN Last Admin: 09/27/18 03:27 Dose: 650 mg Allopurinol (Zyloprim Tab*) 100 mg PO DAILY WITH MEAL [facility] Last Admin: 09/27/18 08:49 Dose: 100 mg Atorvastatin Calcium (Lipitor*) 40 mg PO DAILY [facility] Last Admin: 09/27/18 08:48 Dose: 40 mg Famotidine (Pepcid Tab*) 20 mg PO DAILY [facility] Last Admin: 09/27/18 08:51 Dose: 20 mg Ferrous Gluconate (Fergon Tab*) 324 mg PO TID [facility] Last Admin: 09/27/18 15:20 Dose: 324 mg Furosemide (Lasix Tab*) 20 mg PO DAILY [facility] Last Admin: 09/27/18 08:48 Dose: 20 mg Heparin Sodium (Porcine) (Heparin Vial(*)) 0 units IV .PER PROTOCOL [facility] Hydromorphone HCl (Dilaudid Inj1s*) 0.5 mg IV SLOW PU Q6H PRN PRN Reason: PAIN - MODERATE Last Admin: 09/26/18 21:37 Dose: 0.5 mg Heparin Sodium/Dextrose (Heparin Drip 25,000 Units(*)) 25,000 units in 500 mls @ 0 mls/hr IV PER RATE [facility]; Protocol Last Admin: 09/27/18 15:18 Dose: 22 mls/hr Cefazolin Sodium 1 gm/ Sodium (Chloride) 50 mls @ 200 mls/hr IVPB Q12H [facility] Last Admin: 09/27/18 15:20 Dose: 200 mls/hr Insulin Human Lispro (Humalog*) 0 units SUBCUT ACHS [facility]; Protocol Last Admin: 09/27/18 17:26 Dose: Not Given Labetalol HCl (Trandate Tab*) 300 mg PO BID [facility] Pto: Semaglutide [ (Ozempic] Pen) 0 units INJ Fr@2100 [facility] Last Admin: 09/24/18 21:42 Dose: 0.25 units Sodium Bicarbonate (Sodium Bicarbonate (Antacid)*) 325 mg PO BID [facility] Last Admin: 09/27/18 08:49 Dose: 325 mg Tramadol HCl (Ultram*) 50 mg PO Q8H PRN PRN Reason: PAIN SEVERE Last Admin: 09/27/18 03:27 Dose: 50 mg Warfarin Sodium (Coumadin Tab(*)) 5 mg PO DAILY@1700 [facility]; Protocol Last Admin: 09/27/18 17:28 Dose: 5 mg Vital Signs - 8 hr 09/27/18 09/27/18 13:14 15:43 Temperature 98.9 F 99.2 F Pulse Rate 70 80 Respiratory 20 16 Rate Blood Pressure 173/75 177/76 (mmHg) O2 Sat by Pulse 92 99 Oximetry Result Diagrams: 09/27/18 05:36 09/27/18 05:36 Assess/Plan/Problems-Billing Assessment: Attestation Attending/Supervising Physician Comment: Ulcer s/p I&D growing MSSA on cefazolin +wound vac Improving INR for h/o PE still subtherapeutic on heparin gtt now
[2018-09-27] MEDS: Warfarin TAB(*) 5 MG PO SCH (17:28)
[2018-09-27] MEDS: Labetalol TAB* 300 MG PO SCH (20:44)
[2018-09-28] MEDS: ceFAZolin 1 GM ADVAN(*) 1 GM in NS 0.9% 50 ML* 50 ML IVPB SCH ×2 (03:46→15:50)
[2018-09-28 06:14] LABS: ABS Basophils 0.1 10^3/ul (0-0.2); ABS Eosinophils 0.2 10^3/ul (0-0.6); ABS Lymphocytes 2.1 10^3/ul (1.0-4.8); ABS Monocytes 1.3 10^3/ul (0-0.8); ABS Neutrophils 11.6 10^3/ul (1.5-7.7); Eosinophil % 1.4 %; Hematocrit 26 % (35-47); Hemoglobin 8.3 g/dL (12.0-16.0); Lymphocyte % 13.8 %; Mean Corpuscular HGB Conc 32 g/dL (31-36); Mean Corpuscular Hemoglobin 26 pg (27-31); Mean Corpuscular Volume 80 fL (80-97); Mean Platelet Volume 7.2 fL (7.4-10.4); Platelet Count 316 10^3/uL (150-450); Red Cell Distribution Width 16 % (10-15); White Blood Count 15.3 10^3/uL (3.5-10.8)
[2018-09-28 06:22] LABS: Activated Partial Thrombo Time 58.3 seconds (26.0-38.0); INR 1.97 (0.82-1.09)
[2018-09-28] MEDS: Insulin LISPRO* 1 UNITS UNIT SUBCUT SCH ×4 (08:27→21:42)
[2018-09-28] MEDS: Furosemide TAB* 20 MG PO SCH (09:22)
[2018-09-28] MEDS: Atorvastatin* 40 MG TAB PO SCH (09:22)
[2018-09-28] MEDS: Famotidine TAB* 20 MG PO SCH (09:22)
[2018-09-28] MEDS: Allopurinol TAB* 100 MG PO SCH (09:22)
[2018-09-28] MEDS: Labetalol TAB* 300 MG PO SCH ×2 (09:22→21:41)
[2018-09-28] MEDS: Ferrous Gluconate TAB* 324 MG TAB PO SCH ×3 (09:22→21:41)
[2018-09-28] MEDS: Sodium Bicarbonate (ANTACID)* 650 MG TAB PO SCH ×2 (09:22→21:42)
[2018-09-28] MEDS: Acetaminophen TAB* 325 MG PO PRN ×3 (09:32→21:47)
--- NOTE | 2018-09-28 09:38 | PN ---
Subjective Date of Service: 09/28/18 Interval History: Patient is feeling good. She is walking around with physical therapy. She has some pain on her left knee that is present during walking. No swelling or redness. Normal bowel and bladder habit. No any overnight issues. Blood pressure coming down. customer operations manager working for the disposition of patient for rehab. Objective Active Medications: Acetaminophen (Tylenol Tab*) 650 mg PO Q4H PRN PRN Reason: FEVER/PAIN Last Admin: 09/28/18 09:32 Dose: 650 mg Allopurinol (Zyloprim Tab*) 100 mg PO DAILY WITH MEAL [facility] Last Admin: 09/28/18 09:22 Dose: 100 mg Atorvastatin Calcium (Lipitor*) 40 mg PO DAILY [facility] Last Admin: 09/28/18 09:22 Dose: 40 mg Famotidine (Pepcid Tab*) 20 mg PO DAILY [facility] Last Admin: 09/28/18 09:22 Dose: 20 mg Ferrous Gluconate (Fergon Tab*) 324 mg PO TID [facility] Last Admin: 09/28/18 09:22 Dose: 324 mg Furosemide (Lasix Tab*) 20 mg PO DAILY [facility] Last Admin: 09/28/18 09:22 Dose: 20 mg Heparin Sodium (Porcine) (Heparin Vial(*)) 0 units IV .PER PROTOCOL [facility] Hydromorphone HCl (Dilaudid Inj1s*) 0.5 mg IV SLOW PU Q6H PRN PRN Reason: PAIN - MODERATE Last Admin: 09/26/18 21:37 Dose: 0.5 mg Heparin Sodium/Dextrose (Heparin Drip 25,000 Units(*)) 25,000 units in 500 mls @ 0 mls/hr IV PER RATE [facility]; Protocol Last Admin: 09/27/18 15:18 Dose: 22 mls/hr Cefazolin Sodium 1 gm/ Sodium (Chloride) 50 mls @ 200 mls/hr IVPB Q12H [facility] Last Admin: 09/28/18 03:46 Dose: 200 mls/hr Insulin Human Lispro (Humalog*) 0 units SUBCUT ACHS [facility]; Protocol Last Admin: 09/28/18 08:27 Dose: Not Given Labetalol HCl (Trandate Tab*) 300 mg PO BID [facility] Last Admin: 09/28/18 09:22 Dose: 300 mg Pto: Semaglutide [ (Ozempic] Pen) 0 units INJ Fr@2100 [facility] Last Admin: 09/24/18 21:42 Dose: 0.25 units Sodium Bicarbonate (Sodium Bicarbonate (Antacid)*) 325 mg PO BID [facility] Last Admin: 09/28/18 09:22 Dose: 325 mg Tramadol HCl (Ultram*) 50 mg PO Q8H PRN PRN Reason: PAIN SEVERE Last Admin: 09/27/18 03:27 Dose: 50 mg Warfarin Sodium (Coumadin Tab(*)) 5 mg PO DAILY@1700 [facility]; Protocol Last Admin: 09/27/18 17:28 Dose: 5 mg Vital Signs - 8 hr 09/28/18 09/28/18 09/28/18 03:19 03:34 07:22 Temperature 97.4 F 97.8 F Pulse Rate 76 74 Respiratory 20 16 Rate Blood Pressure 154/67 143/48 (mmHg) O2 Sat by Pulse 93 97 95 Oximetry 09/28/18 07:53 Temperature Pulse Rate Respiratory 16 Rate Blood Pressure (mmHg) O2 Sat by Pulse Oximetry Oxygen Devices in Use Now: None Exam: Patient is lying down her bed. HEENT: Normocephalic and atraumatic Lungs: Clear Heart: S1/S2 heard with no any murmur Abdomen: Soft, nondistended and nontender. Normal bowel sound heard Extremity: Dressing wound on right foot; B/L charcot foot Neuro: Alert, conscious and oriented; Moving all four extremity Result Diagrams: 09/28/18 05:53 09/27/18 05:36 Additional Lab and Data: Above labs were pulled in to the note, when the note was edited prior to signing. Please see below for labs from the day of the consultation. Laboratory Tests 09/21/18 09/21/18 09/21/18 02:00 06:55 06:55 WBC 22.0 H Hgb 9.2 L Hct 28 L Plt Count 213 Sodium 136 Potassium 3.7 Chloride 100 L Carbon Dioxide 21 L BUN 69 H Creatinine 4.50 H Glucose 119 H C-Reactive Protein 392.05 H Microbiology and Other Data: Microbiology 09/21/18 16:00 Stool Occult Blood (CARMINE) - Final Stool Diagnostic Imagin. Exam Date: 09/20/182337 - FOOT RIGHT 3+ VWS IMPRESSION: 1. DIFFUSE SOFT TISSUE SWELLING. 2. SEVERE CHARCOT ARTHROPATHY AND POSTSURGICAL CHANGES IN THE HINDFOOT. 3. THE STUDY IS LIMITED IN EVALUATION FOR OSTEOMYELITIS DUE TO THE CHARCOT JOINT CHANGES. 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 Waiting for disposition to rehab. - Patient Problems (1) Right foot infection Current Visit: Yes Status: Acute Code(s): L08.9 - LOCAL INFECTION OF THE SKIN AND SUBCUTANEOUS TISSUE, UNSP SNOMED Code(s): 400041328 Comment: Right ankle wound; I and D done with right fibula saucerization done. OM inconclusive Patient is on cefazolin: day 8 of abx Wound dressing every 3 days. (2) Cellulitis Current Visit: Yes Status: Acute Code(s): L03.90 - CELLULITIS, UNSPECIFIED SNOMED Code(s): 985133880 Comment: with abscess S/P I&D wound growing MSSA continue cefazolin (per ID); day 8 of antibiotics (3) Anemia Current Visit: Yes Status: Acute Code(s): D64.9 - ANEMIA, UNSPECIFIED SNOMED Code(s): 269142632 Comment: On oral iron (4) Charcot foot due to diabetes mellitus Current Visit: Yes Status: Acute Code(s): E11.610 - TYPE 2 DIABETES MELLITUS W DIABETIC NEUROPATHIC ARTHROPATHY SNOMED Code(s): 399463376 Comment: bilateral charcot foot right side ulcer, prulent discharge seen, culture was negative MRI foot done: bone marrow edema noted in surrounding bones, OM cannot be excluded right foot I&D and right fibula saucerization done. (5) Subtherapeutic international normalized ratio (INR) Current Visit: Yes Status: Acute Code(s): R79.1 - ABNORMAL COAGULATION PROFILE SNOMED Code(s): 133490791 Comment: warfarin restarted on 09/24 post-op, INR was subtherapeutic at admission on home dose (she admitted to missing several INR checks), Her INR is 1.97 on 5 mg of warfarin Target INR is 2-3. Plan is warfarin 5 mg for 6 days and 7.5 mg one day a week. (6) Troponin level elevated Current Visit: Yes Status: Acute Code(s): R74.8 - ABNORMAL LEVELS OF OTHER SERUM ENZYMES SNOMED Code(s): 868313344 Comment: Likely demand due to sepsis No ECG changes, no chest pain Pre-op stress test was low risk (7) Acute on chronic renal insufficiency Current Visit: No Status: Acute Code(s): N28.9 - DISORDER OF KIDNEY AND URETER, UNSPECIFIED; N18.9 - CHRONIC KIDNEY DISEASE, UNSPECIFIED SNOMED Code(s ): 855144291 Comment: Creatinine is on baseline now -Continue watchful waiting (8) Diabetes mellitus Current Visit: No Status: Acute Code(s): E11.9 - TYPE 2 DIABETES MELLITUS WITHOUT COMPLICATIONS SNOMED Code(s): 21395034 Comment: BGs are acceptable on semaglutide (weekly) and lispro (9) Hypertension Current Visit: No Status: Acute Code(s): I10 - ESSENTIAL (PRIMARY) HYPERTENSION SNOMED Code(s): 29292654 Comment: Today her BP is in 140s. Continue Labetalol 300 mg BID. Furosemide 20 mg daily (10) Pulmonary thromboembolism Current Visit: No Status: Acute Code(s): I26.99 - OTHER PULMONARY EMBOLISM WITHOUT ACUTE COR PULMONALE SNOMED Code(s): 274805398 Comment: history of PE on [facility] coumadin INR is subtherapeutic On warfarin 5 mg. (11) DVT prophylaxis Current Visit: No Status: Acute Code(s): XRX7351 - SNOMED Code(s): 033495785 Comment: -As above Status and Disposition: Medicine inpatient. Once INR is >2 can be discharged to [facility] Waiting for the approval from rehab. customer operations manager working on it. Attending: Thanh Cadena Attestation Documenting Resident: Cayla Cervantes Supervising Physician: Thanh Cadena Attending/Supervising Physician Comment: INR 1.97 will receive 2.5 additional coumadin today WBC trending up on cefazolin but no other indication of worsening infection. Will check repeat CBC in AM BP better controlled on increased dose labetalol Attestation: This service has been performed in part by a resident under the direction of a teaching physician.I, Thanh Cadena, performed the service, or was physically present during the critical, or thakur portions of the service, furnished by the resident. I participated in the management of the patient.
[2018-09-28] MEDS: Heparin DRIP 25,000 UNITS(*) 25,000 UNITS/500 ML BAG IV SCH (15:51)
--- NOTE | 2018-09-28 16:40 | PN ---
Progress Note - Progress Note Date of Service: 09/28/18 SOAP: Subjective: []Pt seen at bedside, she feels well. No RLE pain. Denies CP, SOB, cough, abd pain. Objective: []Gen: NAD< nontoxic appearing RLE: no erythema of lower leg, calf no longer tender. Vac in place with good suction. Toes warm with cap refill less than two seconds distally, F/E MTPs intact Calves supple and nontender Assessment: []POSTOPERATIVE DIAGNOSIS: Right diabetic lateral ankle ulcer with infection in setting of Charcot neuroarthropathy OPERATION: Right lateral ankle irrigation and debridement, distal fibula saucerization, placement of a wound VAC Plan: []ABX per ID. On cefazolin bedside cx show MSSA, intraop cx without growth NWB RLE Wound vac changed 09/27, needs vac change q3 days. Ready for DC from ortho standpoint, needs rehab placement [facility] unable to offer a bed due to duration of stay needed Asymptomatic, repeat WBC tomorrow Vital Signs Temp 97.8 F 09/28/18 07:22 Pulse 74 09/28/18 07:22 Resp 16 09/28/18 08:00 BP 143/48 09/28/18 07:22 Pulse Ox 95 09/28/18 07:22 Intake & Output 09/27/18 09/28/18 09/28/18 18:59 06:59 18:59 Intake Total 524 588.5 1387 Output Total 350 Balance 524 238.5 1387 Intake: IV Fluids 50 Cefazolin 50 IVPB 50 Cefazolin 50 Medicated IV 239 heparin 239 Heparin 234 9.5 187 Oral 179 026 2471 Output: Urine 350 Other: Date of Last Bowel 09/28/18 Movement # Bowel Movements 1 1 Estimated Stool Amount Large # Voids 2 1 2 Laboratory Last Values WBC 15.3 10^3/uL (3.5-10.8) H 09/28/18 05:53 RBC 3.20 10^6 /uL (3.70-4.87) L 09/28/18 05:53 Hgb 8.3 g/dL (12.0-16.0) L 09/28/18 05:53 Hct 26 % (35-47) L 09/28/18 05:53 MCV 80 fL (80-97) 09/28/18 05:53 MCH 26 pg (27-31) L 09/28/18 05:53 MCHC 32 g/dL (31-36) 09/28/18 05:53 RDW 16 % (10-15) H 09/28/18 05:53 Plt Count 316 10^3/uL (150-450) 09/28/18 05:53 MPV 7.2 fL (7.4-10.4) L 09/28/18 05:53 Neut % (Auto) 75.8 % 09/28/18 05:53 Lymph % (Auto) 13.8 % 09/28/18 05:53 [place] % (Auto) 8.6 % 09/28/18 05:53 Eos % (Auto) 1.4 % 09/28/18 05:53 Baso % (Auto) 0.4 % 09/28/18 05:53 Absolute Neuts (auto) 11.6 10^3/ul (1.5-7.7) H 09/28/18 05:53 Absolute Lymphs (auto) 2.1 10^3/ul (1.0-4.8) 09/28/18 05:53 Absolute Monos (auto) 1.3 10^3/ul (0-0.8) H 09/28/18 05:53 Absolute Eos (auto) 0.2 10^3/ul (0-0.6) 09/28/18 05:53 Absolute Basos (auto) 0.1 10^3/ul (0-0.2) 09/28/18 05:53 Absolute Nucleated RBC 0.0 10^3/ul 09/28/18 05:53 Immature Gran % 6.0 % (0-9) 09/26/18 06:53 Neutrophils % 70.0 % 09/26/18 06:53 Band Neutrophils % 1.0 % (0-8) 09/26/18 06:53 Lymphocytes % 16.0 % 09/26/18 06:53 Monocytes % 4.0 % 09/26/18 06:53 Eosinophils % 4.0 % 09/26/18 06:53 Metamyelocytes % 3.0 % (0-2) H 09/26/18 06:53 Myelocytes % 2.0 % (0-1) H 09/26/18 06:53 Nucleated RBC % 0.0 09/28/18 05:53 Normal RBC Morphology Normal (Normal) 09/26/18 06:53 Polychromasia 1+ 09/25/18 06:37 Microcytosis 1+ 09/25/18 06:37 INR (Anticoag Therapy) 1.97 (0.82-1.09) H 09/28/18 05:53 APTT 58.3 seconds (26.0-38.0) H 09/28/18 05:53 Sodium 138 mmol/L (135-145) 09/27/18 05:36 Potassium 3.8 mmol/L (3.5-5.0) 09/27/18 05:36 Chloride 106 mmol/L (101-111) 09/27/18 05:36 Carbon Dioxide 21 mmol/L (22-32) L 09/27/18 05:36 Anion Gap 11 mmol/L (2-11) 09/27/18 05:36 BUN 31 mg/dL (6-24) H 09/27/18 05:36 Creatinine 2.50 mg/dL (0.51-0.95) H 09/27/18 05:36 Est GFR ( Amer) 23.9 (>60) 09/27/18 05:36 Est GFR (Non-Af Amer) 19.7 (>60) 09/27/18 05:36 BUN/Creatinine Ratio 12.4 (8-20) 09/27/18 05:36 Glucose 113 mg/dL (70-100) H 09/27/18 05:36 POC Glucose (mg/dL) 135 mg/dL (70-100) H 09/28/18 11:47 Hemoglobin A1c 7.5 % (4.0-5.6) H 09/21/18 06:55 Lactic Acid 1.1 mmol/L (0.5-2.0) 09/21/18 02:00 Calcium 9.2 mg/dL (8.6-10.3) 09/27/18 05:36 Total Bilirubin 0.70 mg/dL (0.2-1.0) 09/21/18 02:00 AST 21 U/L (13-39) 09/21/18 02:00 ALT 9 U/L (7-52) 09/21/18 02:00 Alkaline Phosphatase 92 U/L (34-104) 09/21/18 02:00 Troponin I 0.03 ng/mL (<0.04) 09/21/18 10:21 C-Reactive Protein 392.05 mg/L (<8.01) H 09/21/18 02:00 B-Natriuretic Peptide 64 pg/mL (<=100) 09/21/18 02:00 Total Protein 8.0 g/dL (6.4-8.9) 09/21/18 02:00 Albumin 3.5 g/dL (3.2-5.2) 09/21/18 02:00 Globulin 4.5 g/dL (2-4) H 09/21/18 02:00 Albumin/Globulin Ratio 0.8 (1-3) L 09/21/18 02:00 Urine Color Yellow 09/21/18 01:08 Urine Appearance Cloudy 09/21/18 01:08 Urine pH 5.0 (5-9) 09/21/18 01:08 Ur Specific [place] 1.013 (1.010-1.030) 09/21/18 01:08 Urine Protein 3+(>=500 mg/dl) (Negative) A 09/21/18 01:08 Urine Ketones Negative (Negative) 09/21/18 01:08 Urine Blood 2+ (Negative) A 09/21/18 01:08 Urine Nitrate Negative (Negative) 09/21/18 01:08 Urine Bilirubin Negative (Negative) 09/21/18 01:08 Urine Urobilinogen Negative (Negative) 09/21/18 01:08 Ur Leukocyte Esterase 2+ (Negative) A 09/21/18 01:08 Urine WBC (Auto) 3+(>20/hpf) (Absent) A 09/21/18 01:08 Urine RBC (Auto) 3+(>10/hpf) (Absent) A 09/21/18 01:08 Ur Squamous Epith Cells Present (Absent) A 09/21/18 01:08 Urine Bacteria 3+ (Absent) A 09/21/18 01:08 Hyaline Casts Present (Absent) A 09/21/18 01:08 Urine Glucose Negative (Negative) 09/21/18 01:08 Random Vancomycin 16.3 mcg/mL 09/23/18 07:09
[2018-09-28] MEDS: Warfarin TAB(*) 5 MG PO SCH (17:33)
[2018-09-28] MEDS ORDERED: Warfarin TAB(*) 2.5 MG PO ONE (18:00)
[2018-09-29] MEDS: Acetaminophen TAB* 325 MG PO PRN ×2 (02:49→07:54)
[2018-09-29] MEDS: ceFAZolin 1 GM ADVAN(*) 1 GM in NS 0.9% 50 ML* 50 ML IVPB SCH ×2 (02:50→16:09)
[2018-09-29 06:14] LABS: ABS Basophils 0.1 10^3/ul (0-0.2); ABS Eosinophils 0.2 10^3/ul (0-0.6); ABS Monocytes 1.2 10^3/ul (0-0.8); Eosinophil % 1.2 %; Hematocrit 25 % (35-47); Mean Corpuscular HGB Conc 33 g/dL (31-36); Mean Corpuscular Hemoglobin 26 pg (27-31); Mean Corpuscular Volume 80 fL (80-97); Mean Platelet Volume 7.1 fL (7.4-10.4); Platelet Count 301 10^3/uL (150-450); Red Blood Count 3.08 10^6 /uL (3.70-4.87); Red Cell Distribution Width 15 % (10-15); White Blood Count 13.5 10^3/uL (3.5-10.8)
[2018-09-29 06:23] LABS: Activated Partial Thrombo Time 49.5 seconds (26.0-38.0); INR 2.36 (0.82-1.09)
[2018-09-29 06:36] LABS: BUN/Creatinine Ratio 13.2 (8-20); Calcium 9.1 mg/dL (8.6-10.3); EGFR African American 22.2 (>60); EGFR Non-African American 18.4 (>60); Potassium 3.7 mmol/L (3.5-5.0)
[2018-09-29] MEDS: Allopurinol TAB* 100 MG PO SCH (07:53)
[2018-09-29] MEDS: Labetalol TAB* 300 MG PO SCH ×2 (07:53→21:45)
[2018-09-29] MEDS: Furosemide TAB* 20 MG PO SCH (07:53)
[2018-09-29] MEDS: Sodium Bicarbonate (ANTACID)* 650 MG TAB PO SCH ×2 (07:53→21:46)
[2018-09-29] MEDS: Famotidine TAB* 20 MG PO SCH (07:54)
[2018-09-29] MEDS: Ferrous Gluconate TAB* 324 MG TAB PO SCH ×3 (07:54→21:46)
[2018-09-29] MEDS: Atorvastatin* 40 MG TAB PO SCH (07:54)
[2018-09-29] MEDS: Insulin LISPRO* 1 UNITS UNIT SUBCUT SCH ×4 (07:58→21:48)
--- NOTE | 2018-09-29 09:57 | PN ---
Progress Note - Progress Note Date of Service: 09/29/18 SOAP: Subjective: CC: Right LE cellulitis with lateral ankle wound HPI: Ms. Jon is a 58 yo female with PMH significant for DM2, charcot foot bilateral, chronic anemia, HLD, hx DVT/PE, oasteoarthritis, HTN, and CKD stage 4 -5; who presented to the hospital with a right lateral ankle wound. Denies fever , chills, nausea, vomiting, diarrhea. No pain in the right LE. She is feeling well and is anxious to get home. Reports discomfort in the left knee. Objective: Vital Signs - 8 hr 09/29/18 09/29/18 03:10 07:10 Temperature 98.4 F 98.8 F Pulse Rate 77 69 Respiratory 24 18 Rate Blood Pressure 144/51 149/61 (mmHg) O2 Sat by Pulse 97 97 Oximetry Physical Exam General: NAD, sitting up on the side of the bed Neurological: Alert and Oriented x3 HEENT: Moist MM, no thrush Cardiovascular: Heart rate regular Respiratory: Lung sounds clear Abdominal: Bowel sounds present; ABD soft, non tender and non distended Skin: Wound vac and YE dressing to the right ankle, no surrounding erythema Laboratory Results - last 24 hr 09/29/18 09/29/18 09/29/18 06:02 06:02 06:02 WBC 13.5 H RBC 3.08 L Hgb 8.0 L Hct 25 L MCV 80 MCH 26 L MCHC 33 RDW 15 Plt Count 301 MPV 7.1 L Neut % (Auto) 74.1 Lymph % (Auto) 15.0 [place] % (Auto) 9.2 Eos % (Auto) 1.2 Baso % (Auto) 0.5 Absolute Neuts (auto) 10.0 H Absolute Lymphs (auto) 2.0 Absolute Monos (auto) 1.2 H Absolute Eos (auto) 0.2 Absolute Basos (auto) 0.1 Absolute Nucleated RBC 0.0 Nucleated RBC % 0.0 INR (Anticoag Therapy) 2.36 H APTT 49.5 H Sodium 139 Potassium 3.7 Chloride 106 Carbon Dioxide 24 Anion Gap 9 BUN 35 H Creatinine 2.66 H Est GFR ( Amer) 22.2 Est GFR (Non-Af Amer) 18.4 BUN/Creatinine Ratio 13.2 Glucose 102 H POC Glucose (mg/dL) Calcium 9.1 Microbiology 08/12/19 10:48 Stool Gross Appearance - Final Stool Shiga Toxin I & II - Final 09/23/18 13:39 Wound Gram Stain - Final Tissue - Right Leg Tissue Culture - Final No Growth Day 4 09/23/18 13:39 Anaerobic Culture - Final Wound No Growth Day 4 09/21/18 02:00 Aerobic Blood Culture - Final Blood Venous No Growth Day 5 Anaerobic Blood Culture - Final No Growth Day 5 09/21/18 01:34 Aerobic Blood Culture - Final Blood Venous No Growth Day 5 Anaerobic Blood Culture - Final Not Reportable 09/23/18 13:39 Gram Stain - Final Wound - Ankle Right Wound Culture - Preliminary No Growth Day 1 09/22/18 12:00 Skin and Soft Tissue MRSA/MSSA (PCR - Final Foot Right Mrsa Negative S.aureus Positive Gram Stain - Final Wound Culture - Final Staphylococcus Aureus Normal Naty 09/21/18 01:08 Urine Culture - Final Urine 09/21/18 16:00 Stool Occult Blood (CARMINE) - Final Stool Assessment: 1. Right LE cellulitis. Afebrile and continues to have mild leukocytosis (but improving). No erythema noted surrounding the dressing. 2. Right ankle chronic non pressure wound with suspected underlying chronic osteomyelitis. S/P right lateral ankle I+D with distal fibula saucerizaion and wound vac placement, POD #6. Bedside wound culture with staph aureus. Operative cultures with no growth. Afebrile and continues to have mild leukocytosis (but improving). 3. Obesity. BMI ~44. 4. DM2 with charcot arthropathy. Plan: Continue Ancef 2 gm IV Q8H, day 10/30-42. Bone pathology is pending and per the micro lab the final results will be available tomorrow: If there is no osteomyelitis, will need 2 weeks total of IV ABX. If there is osteomyeltis, will need 6 weeks total of IV ABX. Outpatient infusion can be Ancef 6gm continuous infusion. She will need to have a PICC line placed for cutter plastics rolls ABX , or midline (if only requires a few more days). Weekly labs while on IV ABX: CBC, CMP, and CRP. Followup with ID in 1-2 weeks.
[2018-09-29 10:06] LABS: Uric Acid 11.8 mg/dL (2.3-6.6)
--- NOTE | 2018-09-29 14:50 | PN ---
Subjective Date of Service: 09/29/18 Interval History: Patient is complaining of left knee pain which is worse than yesterday. 08/25; with some swelling. Tylenolol and ice pack not helping. No fever, chills. Otherwise patient is feeling fine. Normal bowel and bladder habit. No any acute events. Objective Active Medications: Acetaminophen (Tylenol Tab*) 650 mg PO Q4H PRN PRN Reason: FEVER/PAIN Last Admin: 09/29/18 07:54 Dose: 650 mg Allopurinol (Zyloprim Tab*) 100 mg PO DAILY WITH MEAL [facility] Last Admin: 09/29/18 07:53 Dose: 100 mg Atorvastatin Calcium (Lipitor*) 40 mg PO DAILY [facility] Last Admin: 09/29/18 07:54 Dose: 40 mg Famotidine (Pepcid Tab*) 20 mg PO DAILY [facility] Last Admin: 09/29/18 07:54 Dose: 20 mg Ferrous Gluconate (Fergon Tab*) 324 mg PO TID [facility] Last Admin: 09/29/18 07:54 Dose: 324 mg Furosemide (Lasix Tab*) 20 mg PO DAILY [facility] Last Admin: 09/29/18 07:53 Dose: 20 mg Heparin Sodium (Porcine) (Heparin Vial(*)) 0 units IV .PER PROTOCOL [facility] Last Admin: 09/29/18 07:35 Dose: 3,000 units Hydromorphone HCl (Dilaudid Inj1s*) 0.5 mg IV SLOW PU Q6H PRN PRN Reason: PAIN - MODERATE Last Admin: 09/26/18 21:37 Dose: 0.5 mg Cefazolin Sodium 1 gm/ Sodium (Chloride) 50 mls @ 200 mls/hr IVPB Q12H [facility] Last Admin: 09/29/18 02:50 Dose: 200 mls/hr Insulin Human Lispro (Humalog*) 0 units SUBCUT ACHS [facility]; Protocol Last Admin: 09/29/18 12:48 Dose: Not Given Labetalol HCl (Trandate Tab*) 300 mg PO BID [facility] Last Admin: 09/29/18 07:53 Dose: 300 mg Pto: Semaglutide [ (Ozempic] Pen) 0 units INJ Fr@2100 [facility] Last Admin: 09/24/18 21:42 Dose: 0.25 units Sodium Bicarbonate (Sodium Bicarbonate (Antacid)*) 325 mg PO BID [facility] Last Admin: 09/29/18 07:53 Dose: 325 mg Warfarin Sodium (Coumadin Tab(*)) 5 mg PO DAILY@1700 [facility]; Protocol Last Admin: 09/28/18 17:33 Dose: 5 mg Vital Signs - 8 hr 09/29/18 09/29/18 07:10 08:00 Temperature 98.8 F Pulse Rate 69 Respiratory 18 18 Rate Blood Pressure 149/61 (mmHg) O2 Sat by Pulse 97 97 Oximetry Oxygen Devices in Use Now: None Exam: Patient is sitting on her bed and having breakfast. HEENT: Normocephalic and atraumatic Lungs: Clear Heart: S1/S2 heard with no any murmur Abdomen: Soft, nondistended and nontender. Normal bowel sound heard Extremity: Left knee swelling+, tenderness+, fluctuation+/- Dressing wound on right foot; B/L charcot foot Neuro: Alert, conscious and oriented; Moving all four extremity Result Diagrams: 09/29/18 06:02 09/29/18 06:02 Additional Lab and Data: Above labs were pulled in to the note, when the note was edited prior to signing. Please see below for labs from the day of the consultation. Laboratory Tests 09/21/18 09/21/18 09/21/18 02:00 06:55 06:55 WBC 22.0 H Hgb 9.2 L Hct 28 L Plt Count 213 Sodium 136 Potassium 3.7 Chloride 100 L Carbon Dioxide 21 L BUN 69 H Creatinine 4.50 H Glucose 119 H C-Reactive Protein 392.05 H Microbiology and Other Data: Microbiology 09/21/18 16:00 Stool Occult Blood (CARMINE) - Final Stool Diagnostic Imagin. Exam Date: 09/20/182337 - FOOT RIGHT 3+ VWS IMPRESSION: 1. DIFFUSE SOFT TISSUE SWELLING. 2. SEVERE CHARCOT ARTHROPATHY AND POSTSURGICAL CHANGES IN THE HINDFOOT. 3. THE STUDY IS LIMITED IN EVALUATION FOR OSTEOMYELITIS DUE TO THE CHARCOT JOINT CHANGES. 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 - Patient Problems (1) Right foot infection Current Visit: Yes Status: Acute Code(s): L08.9 - LOCAL INFECTION OF THE SKIN AND SUBCUTANEOUS TISSUE, UNSP SNOMED Code(s): 335236746 Comment: Right ankle wound; I and D done with right fibula saucerization done. OM inconclusive Patient is on cefazolin: day 8 of abx Wound dressing every 3 days. (2) Cellulitis Current Visit: Yes Status: Acute Code(s): L03.90 - CELLULITIS, UNSPECIFIED SNOMED Code(s): 571541204 Comment: with abscess S/P I&D wound growing MSSA continue cefazolin (per ID); day 8 of antibiotics (3) Anemia Current Visit: Yes Status: Acute Code(s): D64.9 - ANEMIA, UNSPECIFIED SNOMED Code(s): 994653315 Comment: On oral iron (4) Charcot foot due to diabetes mellitus Current Visit: Yes Status: Acute Code(s): E11.610 - TYPE 2 DIABETES MELLITUS W DIABETIC NEUROPATHIC ARTHROPATHY SNOMED Code(s): 965850920 Comment: bilateral charcot foot right side ulcer, prulent discharge seen, culture was negative MRI foot done: bone marrow edema noted in surrounding bones, OM cannot be excluded right foot I&D and right fibula saucerization done. (5) Subtherapeutic international normalized ratio (INR) Current Visit: Yes Status: Acute Code(s): R79.1 - ABNORMAL COAGULATION PROFILE SNOMED Code(s): 457762123 Comment: warfarin restarted on 09/24 post-op, INR was subtherapeutic at admission on home dose (she admitted to missing several INR checks), Her INR is 1.97 on 5 mg of warfarin Target INR is 2-3. Plan is warfarin 5 mg for 6 days and 7.5 mg one day a week. (6) Troponin level elevated Current Visit: Yes Status: Acute Code(s): R74.8 - ABNORMAL LEVELS OF OTHER SERUM ENZYMES SNOMED Code(s): 007822332 Comment: Likely demand due to sepsis No ECG changes, no chest pain Pre-op stress test was low risk (7) Acute on chronic renal insufficiency Current Visit: No Status: Acute Code(s): N28.9 - DISORDER OF KIDNEY AND URETER, UNSPECIFIED; N18.9 - CHRONIC KIDNEY DISEASE, UNSPECIFIED SNOMED Code(s ): 823314628 Comment: Creatinine is on baseline now -Continue watchful waiting (8) Diabetes mellitus Current Visit: No Status: Acute Code(s): E11.9 - TYPE 2 DIABETES MELLITUS WITHOUT COMPLICATIONS SNOMED Code(s): 44022713 Comment: BGs are acceptable on semaglutide (weekly) and lispro (9) Hypertension Current Visit: No Status: Acute Code(s): I10 - ESSENTIAL (PRIMARY) HYPERTENSION SNOMED Code(s): 33088713 Comment: Today her BP is in 140s. Continue Labetalol 300 mg BID. 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 (11) DVT prophylaxis Current Visit: No Status: Acute Code(s): TXN1800 - SNOMED Code(s): 074090530 Comment: -As above Status and Disposition: Medicine inpatient. INR therapeutic. Waiting for the approval from rehab. environmental health manager working on it. Attestation Documenting Resident: Cayla Cervantes Supervising Physician: Thanh Cadena Attending/Supervising Physician Comment: Left knee pain increased. This is frequent site of previous gout flares and feels similar. Athrocentesis and steroid injection today by ortho teams. Abx continue for LE infection Dispo planning Crystal analysis pending from knee today Follow creatinine and INR prior to discharge Attestation: This service has been performed in part by a resident under the direction of a teaching physician.I, Thanh Cadena, performed the service, or was physically present during the critical, or thakur portions of the service, furnished by the resident. I participated in the management of the patient.
[2018-09-29] MEDS ORDERED: methylPREDNISolone ACETATE 80* 80 MG/ML 1 ML VIAL ONE (14:53)
[2018-09-29] MEDS ORDERED: Lidocaine 1% INJ* 10 MG/ML 30 ML SDV ONE (14:54)
[2018-09-29 15:53] LABS: Body Fluid Source Synovial Fluid
[2018-09-29 16:54] LABS: Body Fluid Band 2 %; Body Fluid Mono 2 %
[2018-09-29] MEDS: Warfarin TAB(*) 5 MG PO SCH (17:54)
--- NOTE | 2018-09-29 18:04 | PN ---
Progress Note - Progress Note Date of Service: 09/29/18 SOAP: Subjective: [] Pt seen at bedside. her right foot is nonpainful, her left knee is very painful with any movement and with gentle touch. Denies Feeling of fever or chills. Pt has a hx of gout flare q 3 weeks, 3 weeks ago her licensed audiologist changed her medications around she is now on allopurinol. Objective: []Gen: NAD, nontoxic appearing RLE: no erythema of lower leg, calf no longer tender. Vac in place with good suction. Toes warm with cap refill less than two seconds distally, F/E MTPs intact Calves supple and nontender Left knee: + moderate effusion, mildly warm, no erythema. + tender to light touch. PROM 5-80 painful though tolerable. Assessment: []POSTOPERATIVE DIAGNOSIS: Right diabetic lateral ankle ulcer with infection in setting of Charcot neuroarthropathy OPERATION: Right lateral ankle irrigation and debridement, distal fibula saucerization, placement of a wound VAC Left knee pain suspect gout though canont r/o septic joint Plan: []ABX per ID. On cefazolin bedside cx show MSSA, intraop cx without growth NWB RLE Wound vac changed 09/27, needs vac change 09/30 Ready for DC from ortho standpoint, needs rehab placement PMRU unable to offer a bed due to duration of stay needed Procedure: Timeout and consent performed. Chloroprep used to clean site, 30cc straw colored synovial fluid drawn off of the knee. 5cc 1% lidocaine and 1 cc depomedrol 80mg/1ml inject into the left knee. Tolerated well by the patient and specimen sent for culture, gram stain, cell count, crystal analysis. Vital Signs Temp 97.9 F 09/29/18 16:20 Pulse 65 09/29/18 16:20 Resp 18 09/29/18 16:20 BP 141/64 09/29/18 16:20 Pulse Ox 99 09/29/18 16:20 Intake & Output 09/28/18 09/29/18 09/29/18 18:59 06:59 18:59 Intake Total 1442 315 428 Balance 1442 315 428 Intake: IVPB 55 Cefazolin 55 Heparin 187 315 428 Oral 1200 0 Other: Estimated Void Medium Date of Last Bowel 09/28/18 Movement # Bowel Movements 1 # Voids 2 1 Laboratory Last Values WBC 13.5 10^3/uL (3.5-10.8) H 09/29/18 06:02 RBC 3.08 10^6 /uL (3.70-4.87) L 09/29/18 06:02 Hgb 8.0 g/dL (12.0-16.0) L 09/29/18 06:02 Hct 25 % (35-47) L 09/29/18 06:02 MCV 80 fL (80-97) 09/29/18 06:02 MCH 26 pg (27-31) L 09/29/18 06:02 MCHC 33 g/dL (31-36) 09/29/18 06:02 RDW 15 % (10-15) 09/29/18 06:02 Plt Count 301 10^3/uL (150-450) 09/29/18 06:02 MPV 7.1 fL (7.4-10.4) L 09/29/18 06:02 Neut % (Auto) 74.1 % 09/29/18 06:02 Lymph % (Auto) 15.0 % 09/29/18 06:02 [place] % (Auto) 9.2 % 09/29/18 06:02 Eos % (Auto) 1.2 % 09/29/18 06:02 Baso % (Auto) 0.5 % 09/29/18 06:02 Absolute Neuts (auto) 10.0 10^3/ul (1.5-7.7) H 09/29/18 06:02 Absolute Lymphs (auto) 2.0 10^3/ul (1.0-4.8) 09/29/18 06:02 Absolute Monos (auto) 1.2 10^3/ul (0-0.8) H 09/29/18 06:02 Absolute Eos (auto) 0.2 10^3/ul (0-0.6) 09/29/18 06:02 Absolute Basos (auto) 0.1 10^3/ul (0-0.2) 09/29/18 06:02 Absolute Nucleated RBC 0.0 10^3/ul 09/29/18 06:02 Immature Gran % 6.0 % (0-9) 09/26/18 06:53 Neutrophils % 70.0 % 09/26/18 06:53 Band Neutrophils % 1.0 % (0-8) 09/26/18 06:53 Lymphocytes % 16.0 % 09/26/18 06:53 Monocytes % 4.0 % 09/26/18 06:53 Eosinophils % 4.0 % 09/26/18 06:53 Metamyelocytes % 3.0 % (0-2) H 09/26/18 06:53 Myelocytes % 2.0 % (0-1) H 09/26/18 06:53 Nucleated RBC % 0.0 09/29/18 06:02 Normal RBC Morphology Normal (Normal) 09/26/18 06:53 Polychromasia 1+ 09/25/18 06:37 Microcytosis 1+ 09/25/18 06:37 INR (Anticoag Therapy) 2.36 (0.82-1.09) H 09/29/18 06:02 APTT 63.5 seconds (26.0-38.0) H 09/29/18 11:40 Sodium 139 mmol/L (135-145) 09/29/18 06:02 Potassium 3.7 mmol/L (3.5-5.0) 09/29/18 06:02 Chloride 106 mmol/L (101-111) 09/29/18 06:02 Carbon Dioxide 24 mmol/L (22-32) 09/29/18 06:02 Anion Gap 9 mmol/L (2-11) 09/29/18 06:02 BUN 35 mg/dL (6-24) H 09/29/18 06:02 Creatinine 2.66 mg/dL (0.51-0.95) H 09/29/18 06:02 Est GFR ( Amer) 22.2 (>60) 09/29/18 06:02 Est GFR (Non-Af Amer) 18.4 (>60) 09/29/18 06:02 BUN/Creatinine Ratio 13.2 (8-20) 09/29/18 06:02 Glucose 102 mg/dL (70-100) H 09/29/18 06:02 POC Glucose (mg/dL) 149 mg/dL (70-100) H 09/29/18 16:57 Hemoglobin A1c 7.5 % (4.0-5.6) H 09/21/18 06:55 Lactic Acid 1.1 mmol/L (0.5-2.0) 09/21/18 02:00 Uric Acid 11.8 mg/dL (2.3-6.6) H 09/29/18 06:02 Calcium 9.1 mg/dL (8.6-10.3) 09/29/18 06:02 Total Bilirubin 0.70 mg/dL (0.2-1.0) 09/21/18 02:00 AST 21 U/L (13-39) 09/21/18 02:00 ALT 9 U/L (7-52) 09/21/18 02:00 Alkaline Phosphatase 92 U/L (34-104) 09/21/18 02:00 Troponin I 0.03 ng/mL (<0.04) 09/21/18 10:21 C-Reactive Protein 392.05 mg/L (<8.01) H 09/21/18 02:00 B-Natriuretic Peptide 64 pg/mL (<=100) 09/21/18 02:00 Total Protein 8.0 g/dL (6.4-8.9) 09/21/18 02:00 Albumin 3.5 g/dL (3.2-5.2) 09/21/18 02:00 Globulin 4.5 g/dL (2-4) H 09/21/18 02:00 Albumin/Globulin Ratio 0.8 (1-3) L 09/21/18 02:00 Urine Color Yellow 09/21/18 01:08 Urine Appearance Cloudy 09/21/18 01:08 Urine pH 5.0 (5-9) 09/21/18 01:08 Ur Specific [place] 1.013 (1.010-1.030) 09/21/18 01:08 Urine Protein 3+(>=500 mg/dl) (Negative) A 09/21/18 01:08 Urine Ketones Negative (Negative) 09/21/18 01:08 Urine Blood 2+ (Negative) A 09/21/18 01:08 Urine Nitrate Negative (Negative) 09/21/18 01:08 Urine Bilirubin Negative (Negative) 09/21/18 01:08 Urine Urobilinogen Negative (Negative) 09/21/18 01:08 Ur Leukocyte Esterase 2+ (Negative) A 09/21/18 01:08 Urine WBC (Auto) 3+(>20/hpf) (Absent) A 09/21/18 01:08 Urine RBC (Auto) 3+(>10/hpf) (Absent) A 09/21/18 01:08 Ur Squamous Epith Cells Present (Absent) A 09/21/18 01:08 Urine Bacteria 3+ (Absent) A 09/21/18 01:08 Hyaline Casts Present (Absent) A 09/21/18 01:08 Urine Glucose Negative (Negative) 09/21/18 01:08 Fluid Source Synovial fluid 09/29/18 15:20 Fluid Volume 4 mL 09/29/18 15:20 Fluid Color Yellow 09/29/18 15:20 Fluid Appearance Cloudy 09/29/18 15:20 Fluid WBC 2041 /mcL (0-242514) 09/29/18 15:20 Fluid RBC 13053 /mcL 09/29/18 15:20 Fluid Tot Cell Count 100 09/29/18 15:20 Fluid Neutrophils 94 % 09/29/18 15:20 Fluid Band Neutrophils 2 % 09/29/18 15:20 Fluid Lymphocytes 2 % 09/29/18 15:20 Fluid Monocytes 2 % 09/29/18 15:20 Random Vancomycin 16.3 mcg/mL 09/23/18 07:09
[2018-09-30] MEDS: ceFAZolin 1 GM ADVAN(*) 1 GM in NS 0.9% 50 ML* 50 ML IVPB SCH ×2 (04:31→16:59)
[2018-09-30 06:31] LABS: ABS Lymphocytes 0.7 10^3/ul (1.0-4.8); ABS Monocytes 0.2 10^3/ul (0-0.8); ABS Neutrophils 13.2 10^3/ul (1.5-7.7); Hematocrit 27 % (35-47); Hemoglobin 8.6 g/dL (12.0-16.0); Lymphocyte % 5.1 %; Mean Corpuscular HGB Conc 32 g/dL (31-36); Mean Corpuscular Hemoglobin 26 pg (27-31); Mean Corpuscular Volume 81 fL (80-97); Mean Platelet Volume 7.2 fL (7.4-10.4); Platelet Count 326 10^3/uL (150-450); Red Blood Count 3.37 10^6 /uL (3.70-4.87); Red Cell Distribution Width 16 % (10-15); White Blood Count 14.1 10^3/uL (3.5-10.8)
[2018-09-30 06:44] LABS: BUN/Creatinine Ratio 14.6 (8-20); Calcium 9.5 mg/dL (8.6-10.3); EGFR African American 22.7 (>60); EGFR Non-African American 18.8 (>60); Potassium 4.4 mmol/L (3.5-5.0)
[2018-09-30] MEDS: Allopurinol TAB* 100 MG PO SCH (08:38)
[2018-09-30] MEDS: Ferrous Gluconate TAB* 324 MG TAB PO SCH ×3 (08:38→21:29)
[2018-09-30] MEDS: Sodium Bicarbonate (ANTACID)* 650 MG TAB PO SCH ×2 (08:38→21:31)
[2018-09-30] MEDS: Labetalol TAB* 300 MG PO SCH ×2 (08:38→21:30)
[2018-09-30] MEDS: Famotidine TAB* 20 MG PO SCH (08:38)
[2018-09-30] MEDS: Atorvastatin* 40 MG TAB PO SCH (08:38)
[2018-09-30] MEDS: Insulin LISPRO* 1 UNITS UNIT SUBCUT SCH ×4 (08:39→21:32)
[2018-09-30] MEDS: Furosemide TAB* 20 MG PO SCH (08:39)
--- NOTE | 2018-09-30 14:08 | PN ---
Progress Note - Progress Note Date of Service: 09/30/18 SOAP: Subjective: POD #7 right ankle I&D with VAC placement. Doing well. Pain improving. Also reports that knee pain has improved greatly from yesterday. Denies f/c. Denies n /v. Objective: Vital Signs: Temp Pulse Resp BP Pulse Ox 98.3 F 76 18 176/62 99 09/30/18 11:41 09/30/18 11:41 09/30/18 11:41 09/30/18 11:45 09/30/18 11:41 Gen: A&Ox3, NAD at rest sitting in bed RLE: Wound measuring about 2 cm in width, shallow with good granulation tissue to the base. Minimal edema, no erythema. Labs: Laboratory Results - last 24 hr 09/29/18 09/29/18 09/29/18 15:20 16:57 21:29 WBC RBC Hgb Hct MCV MCH MCHC RDW Plt Count MPV Neut % (Auto) Lymph % (Auto) [place] % (Auto) Eos % (Auto) Baso % (Auto) Absolute Neuts (auto) Absolute Lymphs (auto) Absolute Monos (auto) Absolute Eos (auto) Absolute Basos (auto) Absolute Nucleated RBC Nucleated RBC % Sodium Potassium Chloride Carbon Dioxide Anion Gap BUN Creatinine Est GFR ( Amer) Est GFR (Non-Af Amer) BUN/Creatinine Ratio Glucose POC Glucose (mg/dL) 149 H 210 H Calcium Fluid Source Synovial fluid Fluid Volume 4 Fluid Color Yellow Fluid Appearance Cloudy Fluid WBC 2041 Fluid RBC 31905 Fluid Tot Cell Count 100 Fluid Neutrophils 94 Fluid Band Neutrophils 2 Fluid Lymphocytes 2 Fluid Monocytes 2 Fluid Cell Count Rvw By 09/30/18 09/30/18 09/30/18 05:51 05:52 07:28 WBC 14.1 H RBC 3.37 L Hgb 8.6 L Hct 27 L MCV 81 MCH 26 L MCHC 32 RDW 16 H Plt Count 326 MPV 7.2 L Neut % (Auto) 93.7 Lymph % (Auto) 5.1 [place] % (Auto) 1.1 Eos % (Auto) 0.0 Baso % (Auto) 0.1 Absolute Neuts (auto) 13.2 H Absolute Lymphs (auto) 0.7 L Absolute Monos (auto) 0.2 Absolute Eos (auto) 0.0 Absolute Basos (auto) 0.0 Absolute Nucleated RBC 0.0 Nucleated RBC % 0.0 Sodium 138 Potassium 4.4 Chloride 104 Carbon Dioxide 24 Anion Gap 10 BUN 38 H Creatinine 2.61 H Est GFR ( Amer) 22.7 Est GFR (Non-Af Amer) 18.8 BUN/Creatinine Ratio 14.6 Glucose 185 H POC Glucose (mg/dL) 206 H Calcium 9.5 Fluid Source Fluid Volume Fluid Color Fluid Appearance Fluid WBC Fluid RBC Fluid Tot Cell Count Fluid Neutrophils Fluid Band Neutrophils Fluid Lymphocytes Fluid Monocytes Fluid Cell Count Rvw By 09/30/18 11:47 WBC RBC Hgb Hct MCV MCH MCHC RDW Plt Count MPV Neut % (Auto) Lymph % (Auto) [place] % (Auto) Eos % (Auto) Baso % (Auto) Absolute Neuts (auto) Absolute Lymphs (auto) Absolute Monos (auto) Absolute Eos (auto) Absolute Basos (auto) Absolute Nucleated RBC Nucleated RBC % Sodium Potassium Chloride Carbon Dioxide Anion Gap BUN Creatinine Est GFR ( Amer) Est GFR (Non-Af Amer) BUN/Creatinine Ratio Glucose POC Glucose (mg/dL) 220 H Calcium Fluid Source Fluid Volume Fluid Color Fluid Appearance Fluid WBC Fluid RBC Fluid Tot Cell Count Fluid Neutrophils Fluid Band Neutrophils Fluid Lymphocytes Fluid Monocytes Fluid Cell Count Rvw By Microbiology 09/29/18 15:20 Joint Fluid(Synovial) - Knee Left Gram Stain - Final 09/29/18 15:20 Joint Fluid(Synovial) - Knee Left Body Fluid Culture - Preliminary No Growth Day 1 09/29/18 15:20 Joint Fluid(Synovial) - Knee Left Skin and Soft Tissue MRSA/ MSSA (PCR - Final Mrsa Negative S.aureus Negative 09/23/18 13:39 Wound - Ankle Right Gram Stain - Final 09/23/18 13:39 Wound - Ankle Right Wound Culture - Final Gram Positive Bacilli Gram Negative Bacilli 09/27/18 10:48 Stool Stool Culture - Final 09/27/18 10:48 Stool Stool Gross Appearance - Final 09/27/18 10:48 Stool Shiga Toxin I & II - Final 09/23/18 13:39 Tissue - Right Leg Wound Gram Stain - Final 09/23/18 13:39 Tissue - Right Leg Tissue Culture - Final No Growth Day 4 09/23/18 13:39 Wound Anaerobic Culture - Final No Growth Day 4 09/21/18 02:00 Blood Venous Aerobic Blood Culture - Final No Growth Day 5 09/21/18 02:00 Blood Venous Anaerobic Blood Culture - Final No Growth Day 5 09/21/18 01:34 Blood Venous Aerobic Blood Culture - Final No Growth Day 5 09/21/18 01:34 Blood Venous Anaerobic Blood Culture - Final Not Reportable 09/22/18 12:00 Foot Right Skin and Soft Tissue MRSA/MSSA (PCR - Final Mrsa Negative S.aureus Positive 09/22/18 12:00 Foot Right Gram Stain - Final 09/22/18 12:00 Foot Right Wound Culture - Final Staphylococcus Aureus Normal Naty 09/21/18 01:08 Urine Urine Culture - Final 09/21/18 16:00 Stool Stool Occult Blood (CARMINE) - Final Assessment: POD #7 Right ankle I&D with wound VAC placement Plan: New wound VAC placed today with good suction Continue PT, awaiting rehab placement. Continue IV abx per ID Will need repeat VAC change 10/03/18.
--- NOTE | 2018-09-30 16:49 | PN ---
Subjective Date of Service: 09/30/18 Interval History: Patient is feeling well. Left knee pain improved. Wound vac changed today. Healing well. Normal bowel and bladder habit. Systolic blood pressure on higher side(160-170); if consistently high till tomorrow may need intervention. Abx to be continued for 4 more days as culture from bone didnot grow any organism. Need midline if goes to other facility. Waiting to hear from nursing facility if they are going to accept patient with midline. Objective Active Medications: Acetaminophen (Tylenol Tab*) 650 mg PO Q4H PRN PRN Reason: FEVER/PAIN Last Admin: 09/29/18 07:54 Dose: 650 mg Allopurinol (Zyloprim Tab*) 100 mg PO DAILY WITH MEAL [facility] Last Admin: 09/30/18 08:38 Dose: 100 mg Atorvastatin Calcium (Lipitor*) 40 mg PO DAILY [facility] Last Admin: 09/30/18 08:38 Dose: 40 mg Famotidine (Pepcid Tab*) 20 mg PO DAILY [facility] Last Admin: 09/30/18 08:38 Dose: 20 mg Ferrous Gluconate (Fergon Tab*) 324 mg PO TID [facility] Last Admin: 09/30/18 12:55 Dose: 324 mg Furosemide (Lasix Tab*) 20 mg PO DAILY [facility] Last Admin: 09/30/18 08:39 Dose: 20 mg Heparin Sodium (Porcine) (Heparin Vial(*)) 0 units IV .PER PROTOCOL [facility] Last Admin: 09/29/18 07:35 Dose: 3,000 units Hydromorphone HCl (Dilaudid Inj1s*) 0.5 mg IV SLOW PU Q6H PRN PRN Reason: PAIN - MODERATE Last Admin: 09/26/18 21:37 Dose: 0.5 mg Cefazolin Sodium 1 gm/ Sodium (Chloride) 50 mls @ 200 mls/hr IVPB Q12H [facility] Last Admin: 09/30/18 04:31 Dose: 200 mls/hr Insulin Human Lispro (Humalog*) 0 units SUBCUT ACHS [facility]; Protocol Last Admin: 09/30/18 12:55 Dose: 4 units Labetalol HCl (Trandate Tab*) 300 mg PO BID [facility] Last Admin: 09/30/18 08:38 Dose: 300 mg Pto: Semaglutide [ (Ozempic] Pen) 0 units INJ Fr@2100 [facility] Last Admin: 08/09/19 21:42 Dose: 0.25 units Sodium Bicarbonate (Sodium Bicarbonate (Antacid)*) 325 mg PO BID [facility] Last Admin: 09/30/18 08:38 Dose: 325 mg Warfarin Sodium (Coumadin Tab(*)) 5 mg PO DAILY@1700 [facility]; Protocol Last Admin: 09/29/18 17:54 Dose: 5 mg Vital Signs - 8 hr 09/30/18 09/30/18 11:41 11:45 Temperature 98.3 F Pulse Rate 76 Respiratory 18 Rate Blood Pressure 168/77 176/62 (mmHg) O2 Sat by Pulse 99 Oximetry Oxygen Devices in Use Now: None Exam: Patient is sitting on her bed and having lunch. HEENT: Normocephalic and atraumatic Lungs: Clear Heart: S1/S2 heard with no any murmur Abdomen: Soft, nondistended and nontender. Normal bowel sound heard Extremity: Left knee swelling present less than yesterday. Dressing wound on right foot; B/L charcot foot Neuro: Alert, conscious and oriented; Moving all four extremity Result Diagrams: 09/30/18 05:52 09/30/18 05:51 Additional Lab and Data: Above labs were pulled in to the note, when the note was edited prior to signing. Please see below for labs from the day of the consultation. Laboratory Tests 09/21/18 09/21/18 09/21/18 02:00 06:55 06:55 WBC 22.0 H Hgb 9.2 L Hct 28 L Plt Count 213 Sodium 136 Potassium 3.7 Chloride 100 L Carbon Dioxide 21 L BUN 69 H Creatinine 4.50 H Glucose 119 H C-Reactive Protein 392.05 H Microbiology and Other Data: Microbiology 09/21/18 16:00 Stool Occult Blood (CARMINE) - Final Stool Diagnostic Imagin. Exam Date: 09/20/182337 - FOOT RIGHT 3+ VWS IMPRESSION: 1. DIFFUSE SOFT TISSUE SWELLING. 2. SEVERE CHARCOT ARTHROPATHY AND POSTSURGICAL CHANGES IN THE HINDFOOT. 3. THE STUDY IS LIMITED IN EVALUATION FOR OSTEOMYELITIS DUE TO THE CHARCOT JOINT CHANGES. 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 Waiting for disposition to rehab and decision about midline - Patient Problems (1) Left knee pain Current Visit: Yes Status: Acute Code(s): M25.562 - PAIN IN LEFT KNEE SNOMED Code(s): 69835553 Comment: Improved today. Synovial fluid analysis showed inflammatory picture. Waiting for cyrstals. REceived one dose of IA steroid. (2) Right foot infection Current Visit: Yes Status: Acute Code(s): L08.9 - LOCAL INFECTION OF THE SKIN AND SUBCUTANEOUS TISSUE, UNSP SNOMED Code(s): 894826616 Comment: Right ankle wound; I and D done with right fibula saucerization done. tissue culture from right fibula negative. Continue abx for total of 2 weeks Patient is on cefazolin: day 10 of abx Wound dressing every 3 days. (3) Cellulitis Current Visit: Yes Status: Acute Code(s): L03.90 - CELLULITIS, UNSPECIFIED SNOMED Code(s): 672218950 Comment: with abscess S/P I&D wound growing MSSA continue cefazolin (per ID); day 10 of antibiotics (4) Anemia Current Visit: Yes Status: Acute Code(s): D64.9 - ANEMIA, UNSPECIFIED SNOMED Code(s): 187968967 Comment: On oral iron (5) Charcot foot due to diabetes mellitus Current Visit: Yes Status: Acute Code(s): E11.610 - TYPE 2 DIABETES MELLITUS W DIABETIC NEUROPATHIC ARTHROPATHY SNOMED Code(s): 608087107 Comment: bilateral charcot foot right side ulcer, prulent discharge seen, culture was negative MRI foot done: bone marrow edema noted in surrounding bones, OM cannot be excluded right foot I&D and right fibula saucerization done. (6) Troponin level elevated Current Visit: Yes Status: Acute Code(s): R74.8 - ABNORMAL LEVELS OF OTHER SERUM ENZYMES SNOMED Code(s): 427110375 Comment: Likely demand due to sepsis No ECG changes, no chest pain Pre-op stress test was low risk (7) Acute on chronic renal insufficiency Current Visit: No Status: Acute Code(s): N28.9 - DISORDER OF KIDNEY AND URETER, UNSPECIFIED; N18.9 - CHRONIC KIDNEY DISEASE, UNSPECIFIED SNOMED Code(s ): 834792246 Comment: Creatinine is on baseline now -Continue watchful waiting (8) Diabetes mellitus Current Visit: No Status: Acute Code(s): E11.9 - TYPE 2 DIABETES MELLITUS WITHOUT COMPLICATIONS SNOMED Code(s): 06441498 Comment: BGs are acceptable on semaglutide (weekly) and lispro (9) Hypertension Current Visit: No Status: Acute Code(s): I10 - ESSENTIAL (PRIMARY) HYPERTENSION SNOMED Code(s): 89218815 Comment: Today her BP is in 160s. will follow tomorrow. if consistently high may need intervention Continue Labetalol 300 mg BID. Furosemide 20 mg daily (10) Pulmonary thromboembolism Current Visit: No Status: Acute Code(s): I26.99 - OTHER PULMONARY EMBOLISM WITHOUT ACUTE COR PULMONALE SNOMED Code(s): 577570773 Comment: history of PE on care home coumadin INR is subtherapeutic On warfarin 5 mg. (11) DVT prophylaxis Current Visit: No Status: Acute Code(s): CMH7409 - SNOMED Code(s): 979342212 Comment: -As above Status and Disposition: Medicine inpatient. INR therapeutic. Waiting for the approval from rehab. 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 Needs midline Attending: Thanh Cadena Attestation Documenting Resident: Cayla Cervantes Supervising Physician: Thanh Cadena Attending/Supervising Physician Comment: Agree with plan outlined here unless indicated INR is no longer subtherapeutic Left knee pain better s/o intraarticular steroids She has never had a crystal dx per her report for gout Needs 4 days addition for abx, it is unclear if accepting facility will deliver these or she will have to stay until money for continued iv abx BP and FSG elevated starting after steroids injection. Likely some low level systemic absorption contributing. Will monitor for resolution and treat both if do not improve Attestation: This service has been performed in part by a resident under the direction of a teaching physician.I, Thanh Cadena, performed the service, or was physically present during the critical, or thakur portions of the service, furnished by the resident. I participated in the management of the patient.
[2018-09-30] MEDS: Warfarin TAB(*) 5 MG PO SCH (16:59)
[2018-09-30] MEDS ORDERED: Ondansetron INJ* 2 MG/ML VIAL IV PRN (23:11)
[2018-09-30] MEDS ORDERED: Al Hydrox/Mg Hydrox/Simet LIQ* 30 ML UDC PO PRN (23:11)
[2018-10-01] MEDS: ceFAZolin 1 GM ADVAN(*) 1 GM in NS 0.9% 50 ML* 50 ML IVPB SCH ×2 (04:12→16:00)
[2018-10-01 07:08] LABS: ABS Lymphocytes 0.7 10^3/ul (1.0-4.8); ABS Monocytes 0.4 10^3/ul (0-0.8); ABS Neutrophils 11.5 10^3/ul (1.5-7.7); Hematocrit 27 % (35-47); Hemoglobin 8.8 g/dL (12.0-16.0); Lymphocyte % 5.7 %; Mean Corpuscular HGB Conc 32 g/dL (31-36); Mean Corpuscular Hemoglobin 26 pg (27-31); Mean Corpuscular Volume 81 fL (80-97); Mean Platelet Volume 7.4 fL (7.4-10.4); Nucleated Red Blood Cells % 0.1; Platelet Count 368 10^3/uL (150-450); Red Blood Count 3.38 10^6 /uL (3.70-4.87); Red Cell Distribution Width 15 % (10-15); White Blood Count 12.7 10^3/uL (3.5-10.8)
[2018-10-01 07:29] LABS: BUN/Creatinine Ratio 17.2 (8-20); Calcium 9.5 mg/dL (8.6-10.3); EGFR African American 24.5 (>60); EGFR Non-African American 20.3 (>60); Potassium 4.2 mmol/L (3.5-5.0)
[2018-10-01] MEDS: Insulin LISPRO* 1 UNITS UNIT SUBCUT SCH ×4 (09:45→21:12)
[2018-10-01] MEDS: Ferrous Gluconate TAB* 324 MG TAB PO SCH ×3 (09:46→21:12)
[2018-10-01] MEDS: Sodium Bicarbonate (ANTACID)* 650 MG TAB PO SCH ×2 (09:46→21:12)
[2018-10-01] MEDS: Atorvastatin* 40 MG TAB PO SCH (09:46)
[2018-10-01] MEDS: Labetalol TAB* 300 MG PO SCH ×2 (09:46→21:12)
[2018-10-01] MEDS: Famotidine TAB* 20 MG PO SCH (09:46)
[2018-10-01] MEDS: Allopurinol TAB* 100 MG PO SCH (09:46)
[2018-10-01] MEDS: Furosemide TAB* 20 MG PO SCH (09:47)
--- NOTE | 2018-10-01 16:15 | PN ---
Subjective Date of Service: 10/01/18 Interval History: Feeling well. No any pain today. Normal bowel and bladder habit. BP 135-149/65-75 mm Hg. [facility] didnot accept midline so she will be here till thursday for IV abx. Objective Active Medications: Acetaminophen (Tylenol Tab*) 650 mg PO Q4H PRN PRN Reason: FEVER/PAIN Last Admin: 09/29/18 07:54 Dose: 650 mg Al Hydrox/Mg Hydrox/Simethicone (Maalox Plus*) 30 ml PO Q6H PRN PRN Reason: INDIGESTION Allopurinol (Zyloprim Tab*) 100 mg PO DAILY WITH MEAL [facility] Last Admin: 10/01/18 09:46 Dose: 100 mg Atorvastatin Calcium (Lipitor*) 40 mg PO DAILY [facility] Last Admin: 10/01/18 09:46 Dose: 40 mg Famotidine (Pepcid Tab*) 20 mg PO DAILY [facility] Last Admin: 10/01/18 09:46 Dose: 20 mg Ferrous Gluconate (Fergon Tab*) 324 mg PO TID [facility] Last Admin: 10/01/18 14:11 Dose: 324 mg Furosemide (Lasix Tab*) 20 mg PO DAILY [facility] Last Admin: 10/01/18 09:47 Dose: 20 mg Heparin Sodium (Porcine) (Heparin Vial(*)) 0 units IV .PER PROTOCOL [facility] Last Admin: 09/29/18 07:35 Dose: 3,000 units Cefazolin Sodium 1 gm/ Sodium (Chloride) 50 mls @ 200 mls/hr IVPB Q12H [facility] Last Admin: 10/01/18 04:12 Dose: 200 mls/hr Insulin Human Lispro (Humalog*) 0 units SUBCUT ACHS [facility]; Protocol Last Admin: 10/01/18 14:12 Dose: 6 units Labetalol HCl (Trandate Tab*) 300 mg PO BID [facility] Last Admin: 10/01/18 09:46 Dose: 300 mg Pto: Semaglutide [ (Ozempic] Pen) 0 units INJ Fr@2100 [facility] Last Admin: 09/24/18 21:42 Dose: 0.25 units Ondansetron HCl (Zofran Inj*) 4 mg IV Q6H PRN PRN Reason: NAUSEA Sodium Bicarbonate (Sodium Bicarbonate (Antacid)*) 325 mg PO BID [facility] Last Admin: 10/01/18 09:46 Dose: 325 mg Warfarin Sodium (Coumadin Tab(*)) 5 mg PO DAILY@1700 [facility]; Protocol Last Admin: 09/30/18 16:59 Dose: 5 mg Vital Signs - 8 hr 10/01/18 10/01/18 10:53 15:00 Temperature 98.1 F 98.5 F Pulse Rate 74 71 Respiratory 16 16 Rate Blood Pressure 146/85 149/74 (mmHg) O2 Sat by Pulse 100 99 Oximetry Oxygen Devices in Use Now: None Exam: Patient is sitting on her bed and having lunch. HEENT: Normocephalic and atraumatic Lungs: Clear Heart: S1/S2 heard with no any murmur Abdomen: Soft, nondistended and nontender. Normal bowel sound heard Extremity: Left knee swelling present less than yesterday. Dressing wound on right foot; B/L charcot foot Neuro: Alert, conscious and oriented; Moving all four extremity Result Diagrams: 10/01/18 06:04 10/01/18 06:04 Additional Lab and Data: Above labs were pulled in to the note, when the note was edited prior to signing. Please see below for labs from the day of the consultation. Laboratory Tests 09/21/18 09/21/18 09/21/18 02:00 06:55 06:55 WBC 22.0 H Hgb 9.2 L Hct 28 L Plt Count 213 Sodium 136 Potassium 3.7 Chloride 100 L Carbon Dioxide 21 L BUN 69 H Creatinine 4.50 H Glucose 119 H C-Reactive Protein 392.05 H Microbiology and Other Data: Microbiology 09/21/18 16:00 Stool Occult Blood (CARMINE) - Final Stool Diagnostic Imagin. Exam Date: 09/20/182337 - FOOT RIGHT 3+ VWS IMPRESSION: 1. DIFFUSE SOFT TISSUE SWELLING. 2. SEVERE CHARCOT ARTHROPATHY AND POSTSURGICAL CHANGES IN THE HINDFOOT. 3. THE STUDY IS LIMITED IN EVALUATION FOR OSTEOMYELITIS DUE TO THE CHARCOT JOINT CHANGES. 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 - Patient Problems (1) Left knee pain Current Visit: Yes Status: Acute Code(s): M25.562 - PAIN IN LEFT KNEE SNOMED Code(s): 87020328 Comment: Improved today. Synovial fluid analysis showed inflammatory picture. Waiting for cyrstals. REceived one dose of IA steroid. (2) Right foot infection Current Visit: Yes Status: Acute Code(s): L08.9 - LOCAL INFECTION OF THE SKIN AND SUBCUTANEOUS TISSUE, UNSP SNOMED Code(s): 229158668 Comment: Right ankle wound; I and D done with right fibula saucerization done. tissue culture from right fibula negative. Continue abx for total of 2 weeks Patient is on cefazolin: day 11 of abx Wound dressing every 3 days. (3) Cellulitis Current Visit: Yes Status: Acute Code(s): L03.90 - CELLULITIS, UNSPECIFIED SNOMED Code(s): 485475021 Comment: with abscess S/P I&D wound growing MSSA continue cefazolin (per ID); day 11 of antibiotics (4) Anemia Current Visit: Yes Status: Acute Code(s): D64.9 - ANEMIA, UNSPECIFIED SNOMED Code(s): 009400744 Comment: On oral iron (5) Charcot foot due to diabetes mellitus Current Visit: Yes Status: Acute Code(s): E11.610 - TYPE 2 DIABETES MELLITUS W DIABETIC NEUROPATHIC ARTHROPATHY SNOMED Code(s): 918881974 Comment: bilateral charcot foot right side ulcer, prulent discharge seen, culture was negative MRI foot done: bone marrow edema noted in surrounding bones, OM cannot be excluded right foot I&D and right fibula saucerization done. (6) Troponin level elevated Current Visit: Yes Status: Acute Code(s): R74.8 - ABNORMAL LEVELS OF OTHER SERUM ENZYMES SNOMED Code(s): 854697524 Comment: Likely demand due to sepsis No ECG changes, no chest pain Pre-op stress test was low risk (7) Acute on chronic renal insufficiency Current Visit: No Status: Acute Code(s): N28.9 - DISORDER OF KIDNEY AND URETER, UNSPECIFIED; N18.9 - CHRONIC KIDNEY DISEASE, UNSPECIFIED SNOMED Code(s ): 920170268 Comment: Creatinine is on baseline now -Continue watchful waiting (8) Diabetes mellitus Current Visit: No Status: Acute Code(s): E11.9 - TYPE 2 DIABETES MELLITUS WITHOUT COMPLICATIONS SNOMED Code(s): 73248095 Comment: BGs are acceptable on semaglutide (weekly) and lispro (9) Hypertension Current Visit: No Status: Acute Code(s): I10 - ESSENTIAL (PRIMARY) HYPERTENSION SNOMED Code(s): 24457112 Comment: Today her BP is in 130-140. will follow tomorrow. Continue Labetalol 300 mg BID. Furosemide 20 mg daily (10) Pulmonary thromboembolism Current Visit: No Status: Acute Code(s): I26.99 - OTHER PULMONARY EMBOLISM WITHOUT ACUTE COR PULMONALE SNOMED Code(s): 397130101 Comment: history of PE on long-term coumadin INR is therapeutic. On warfarin 5 mg. (11) DVT prophylaxis Current Visit: No Status: Acute Code(s): MZC9957 - SNOMED Code(s): 714187949 Comment: -As above Status and Disposition: Medicine inpatient. INR therapeutic. She willbe here till thursday for IV abx. Attestation Documenting Resident: Cayla Cervantes Supervising Physician: Thanh Cadena Attending/Supervising Physician Comment: Agree with plan as outlined in Dr. Em's note from today Left knee pain better. Urate identified on left knee synovial fluid confirming gout BP better controlled today without change in interventions. Notably BP was being measured from left forearm and with a cuff that was too small which is likely contributing to various reading some which may inaccurate. Blood sugar under better control since yesterday without change to diabetic medications [facility] for 4 days abx Pt will stay to complete abx on Thursday then d/c to [facility] Attestation: This service has been performed in part by a resident under the direction of a teaching physician.I, Thanh Cadena, performed the service, or was physically present during the critical, or thakur portions of the service, furnished by the resident. I participated in the management of the patient.
[2018-10-01] MEDS ORDERED: Warfarin TAB(*) 5 MG PO SCH (18:15)
[2018-10-01] MEDS: SEMAGLUTIDE INJ SCH (21:52)
[2018-10-01] MEDS ORDERED: SEMAGLUTIDE 0.5 MG INJ SCH (22:00)
[2018-10-02] MEDS: ceFAZolin 1 GM ADVAN(*) 1 GM in NS 0.9% 50 ML* 50 ML IVPB SCH ×2 (02:55→15:41)
[2018-10-02 08:21] LABS: INR 3.44 (0.82-1.09)
[2018-10-02] MEDS: Insulin LISPRO* 1 UNITS UNIT SUBCUT SCH ×4 (08:47→20:47)
[2018-10-02] MEDS: Atorvastatin* 40 MG TAB PO SCH (08:47)
[2018-10-02] MEDS: Allopurinol TAB* 100 MG PO SCH (08:48)
[2018-10-02] MEDS: Ferrous Gluconate TAB* 324 MG TAB PO SCH ×3 (08:48→20:47)
[2018-10-02] MEDS: Sodium Bicarbonate (ANTACID)* 650 MG TAB PO SCH ×2 (08:48→20:48)
[2018-10-02] MEDS: Famotidine TAB* 20 MG PO SCH (08:48)
[2018-10-02] MEDS: Furosemide TAB* 20 MG PO SCH (08:48)
[2018-10-02] MEDS: Labetalol TAB* 300 MG PO SCH ×2 (08:48→20:45)
--- NOTE | 2018-10-02 15:54 | PN ---
Subjective Date of Service: 10/02/18 Interval History: Patient has no any complaint. Had normal bowel and bladder habit. BP in 150's/80 mm Hg Her INR was 3.44 so warfarin put on hold; will check INR tomorrow again and monitor therapy. Objective Active Medications: Acetaminophen (Tylenol Tab*) 650 mg PO Q4H PRN PRN Reason: FEVER/PAIN Last Admin: 09/29/18 07:54 Dose: 650 mg Al Hydrox/Mg Hydrox/Simethicone (Maalox Plus*) 30 ml PO Q6H PRN PRN Reason: INDIGESTION Allopurinol (Zyloprim Tab*) 100 mg PO DAILY WITH MEAL [facility] Last Admin: 10/02/18 08:48 Dose: 100 mg Atorvastatin Calcium (Lipitor*) 40 mg PO DAILY [facility] Last Admin: 10/02/18 08:47 Dose: 40 mg Famotidine (Pepcid Tab*) 20 mg PO DAILY [facility] Last Admin: 10/02/18 08:48 Dose: 20 mg Ferrous Gluconate (Fergon Tab*) 324 mg PO TID [facility] Last Admin: 10/02/18 12:48 Dose: 324 mg Furosemide (Lasix Tab*) 20 mg PO DAILY [facility] Last Admin: 10/02/18 08:48 Dose: 20 mg Cefazolin Sodium 1 gm/ Sodium (Chloride) 50 mls @ 200 mls/hr IVPB Q12H [facility] Last Admin: 10/02/18 15:41 Dose: 200 mls/hr Insulin Human Lispro (Humalog*) 0 units SUBCUT ACHS [facility]; Protocol Last Admin: 10/02/18 12:48 Dose: 2 units Labetalol HCl (Trandate Tab*) 300 mg PO BID [facility] Last Admin: 10/02/18 08:48 Dose: 300 mg Pto: Semaglutide [ (Ozempic] 0.5 Mg) 0.5 mg INJ Fr@2100 [facility] Last Admin: 10/01/18 21:51 Dose: 0.5 mg Ondansetron HCl (Zofran Inj*) 4 mg IV Q6H PRN PRN Reason: NAUSEA Pharmacy Profile Note (Coumadin Daily Reminder*) 1 note FOLLOW UP 1700 [facility] Sodium Bicarbonate (Sodium Bicarbonate (Antacid)*) 325 mg PO BID [facility] Last Admin: 10/02/18 08:48 Dose: 325 mg Vital Signs - 8 hr 10/02/18 10/02/18 08:00 11:00 Temperature 97.9 F Pulse Rate 81 Respiratory 18 17 Rate Blood Pressure 152/80 (mmHg) O2 Sat by Pulse 96 100 Oximetry Oxygen Devices in Use Now: None Exam: Patient is sitting on her bed and having lunch. HEENT: Normocephalic and atraumatic Lungs: Clear Heart: S1/S2 heard with no any murmur Abdomen: Soft, nondistended and nontender. Normal bowel sound heard Extremity: Left knee swelling present less than yesterday. Dressing wound on right foot; B/L charcot foot Neuro: Alert, conscious and oriented; Moving all four extremity Result Diagrams: 10/01/18 06:04 10/01/18 06:04 Additional Lab and Data: Above labs were pulled in to the note, when the note was edited prior to signing. Please see below for labs from the day of the consultation. Laboratory Tests 09/21/18 09/21/18 09/21/18 02:00 06:55 06:55 WBC 22.0 H Hgb 9.2 L Hct 28 L Plt Count 213 Sodium 136 Potassium 3.7 Chloride 100 L Carbon Dioxide 21 L BUN 69 H Creatinine 4.50 H Glucose 119 H C-Reactive Protein 392.05 H Microbiology and Other Data: Microbiology 09/21/18 16:00 Stool Occult Blood (CARMINE) - Final Stool Diagnostic Imagin. Exam Date: 09/20/182337 - FOOT RIGHT 3+ VWS IMPRESSION: 1. DIFFUSE SOFT TISSUE SWELLING. 2. SEVERE CHARCOT ARTHROPATHY AND POSTSURGICAL CHANGES IN THE HINDFOOT. 3. THE STUDY IS LIMITED IN EVALUATION FOR OSTEOMYELITIS DUE TO THE CHARCOT JOINT CHANGES. 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 - Patient Problems (1) Left knee pain Current Visit: Yes Status: Acute Code(s): M25.562 - PAIN IN LEFT KNEE SNOMED Code(s): 45053301 Comment: Improved. Synovial fluid analysis showed inflammatory picture. Waiting for cyrstals. REceived one dose of IA steroid. (2) Right foot infection Current Visit: Yes Status: Acute Code(s): L08.9 - LOCAL INFECTION OF THE SKIN AND SUBCUTANEOUS TISSUE, UNSP SNOMED Code(s): 916791596 Comment: Right ankle wound; I and D done with right fibula saucerization done. tissue culture from right fibula negative. Continue abx for total of 2 weeks Patient is on cefazolin: day 12 of abx Wound dressing every 3 days. (3) Cellulitis Current Visit: Yes Status: Acute Code(s): L03.90 - CELLULITIS, UNSPECIFIED SNOMED Code(s): 001202259 Comment: with abscess S/P I&D wound growing MSSA continue cefazolin (per ID); day 12 of antibiotics (4) Anemia Current Visit: Yes Status: Acute Code(s): D64.9 - ANEMIA, UNSPECIFIED SNOMED Code(s): 322536805 Comment: On oral iron (5) Charcot foot due to diabetes mellitus Current Visit: Yes Status: Acute Code(s): E11.610 - TYPE 2 DIABETES MELLITUS W DIABETIC NEUROPATHIC ARTHROPATHY SNOMED Code(s): 991681000 Comment: bilateral charcot foot right side ulcer, prulent discharge seen, culture was negative MRI foot done: bone marrow edema noted in surrounding bones, OM cannot be excluded right foot I&D and right fibula saucerization done. (6) Troponin level elevated Current Visit: Yes Status: Acute Code(s): R74.8 - ABNORMAL LEVELS OF OTHER SERUM ENZYMES SNOMED Code(s): 174297331 Comment: Likely demand due to sepsis No ECG changes, no chest pain Pre-op stress test was low risk (7) Acute on chronic renal insufficiency Current Visit: No Status: Acute Code(s): N28.9 - DISORDER OF KIDNEY AND URETER, UNSPECIFIED; N18.9 - CHRONIC KIDNEY DISEASE, UNSPECIFIED SNOMED Code(s ): 091706103 Comment: Creatinine is on baseline now -Continue watchful waiting (8) Diabetes mellitus Current Visit: No Status: Acute Code(s): E11.9 - TYPE 2 DIABETES MELLITUS WITHOUT COMPLICATIONS SNOMED Code(s): 99530560 Comment: BGs are acceptable on semaglutide (weekly) and lispro (9) Hypertension Current Visit: No Status: Acute Code(s): I10 - ESSENTIAL (PRIMARY) HYPERTENSION SNOMED Code(s): 30591111 Comment: Today her BP is in 130-140. will follow tomorrow. Continue Labetalol 300 mg BID. Furosemide 20 mg daily (10) Pulmonary thromboembolism Current Visit: No Status: Acute Code(s): I26.99 - OTHER PULMONARY EMBOLISM WITHOUT ACUTE COR PULMONALE SNOMED Code(s): 718033368 Comment: history of PE on [facility] coumadin INR is 3.44 stopped warfarin 5 mg. Monitor inr tomorrow. (11) DVT prophylaxis Current Visit: No Status: Acute Code(s): BIA7353 - SNOMED Code(s): 114436794 Comment: -As above Status and Disposition: Medicine inpatient. INR therapeutic. She will be here till thursday for IV abx. Attending: Thanh Cadena Attestation Documenting Resident: Cayla Cervantes Supervising Physician: Thanh Cadena Attending/Supervising Physician Comment: Agree with Dr. Cervantes's note from today. Chronic ulcer with cellulitis completing 14 d IV abx Bone biopsy negative for OM Left knee with crystal positive gout s/p steroid injection Completing abx course then dc to [facility] on Thursday INR supratherapeutic 10/02 and holding coumadin with recheck tomorrow Attestation: This service has been performed in part by a resident under the direction of a teaching physician.I, Thanh Cadena, performed the service, or was physically present during the critical, or thakur portions of the service, furnished by the resident. I participated in the management of the patient.
[2018-10-03] MEDS: ceFAZolin 1 GM ADVAN(*) 1 GM in NS 0.9% 50 ML* 50 ML IVPB SCH ×2 (03:05→15:53)
[2018-10-03 07:10] LABS: Hematocrit 29 % (35-47); Hemoglobin 9.3 g/dL (12.0-16.0); Mean Corpuscular HGB Conc 33 g/dL (31-36); Mean Corpuscular Hemoglobin 26 pg (27-31); Mean Corpuscular Volume 81 fL (80-97); Mean Platelet Volume 7.2 fL (7.4-10.4); Platelet Count 367 10^3/uL (150-450); Red Blood Count 3.52 10^6 /uL (3.70-4.87); Red Cell Distribution Width 16 % (10-15); White Blood Count 11.1 10^3/uL (3.5-10.8)
[2018-10-03 07:23] LABS: INR 3.3 (0.82-1.09)
[2018-10-03 07:27] LABS: BUN/Creatinine Ratio 20.8 (8-20); Calcium 9.3 mg/dL (8.6-10.3); EGFR African American 26.1 (>60); EGFR Non-African American 21.6 (>60); Potassium 4.1 mmol/L (3.5-5.0)
[2018-10-03] MEDS: Insulin LISPRO* 1 UNITS UNIT SUBCUT SCH ×4 (08:02→21:43)
[2018-10-03] MEDS: Famotidine TAB* 20 MG PO SCH (09:32)
[2018-10-03] MEDS: Labetalol TAB* 300 MG PO SCH ×2 (09:32→21:42)
[2018-10-03] MEDS: Allopurinol TAB* 100 MG PO SCH (09:33)
[2018-10-03] MEDS: Ferrous Gluconate TAB* 324 MG TAB PO SCH ×3 (09:33→21:42)
[2018-10-03] MEDS: Atorvastatin* 40 MG TAB PO SCH (09:33)
[2018-10-03] MEDS: Furosemide TAB* 20 MG PO SCH (09:33)
[2018-10-03] MEDS: Sodium Bicarbonate (ANTACID)* 650 MG TAB PO SCH ×2 (09:33→21:42)
[2018-10-03] MEDS ORDERED: Lisinopril TAB* 5 MG PO ONE (11:02)
--- NOTE | 2018-10-03 11:41 | PN ---
Progress Note - Progress Note Date of Service: 10/03/18 SOAP: Subjective: [Pt reports doing well. No c/o pain R foot, L knee] Objective: [A and O x 3, NAD Wound vac changed - wound approx 2 cm diameter, shallow with good granulation tissue to base. No drainage with change of vac. Good suction obtained with vac change. Calves soft, NT Vital Signs: Temp Pulse Resp BP Pulse Ox 97.6 F 64 18 168/71 98 10/03/18 07:00 10/03/18 07:00 10/03/18 11:20 10/03/18 07:00 10/03/18 08:00 Laboratory Results - last 24 hr 10/02/18 10/02/18 10/02/18 12:31 16:32 20:10 WBC RBC Hgb Hct MCV MCH MCHC RDW Plt Count MPV INR (Anticoag Therapy) Sodium Potassium Chloride Carbon Dioxide Anion Gap BUN Creatinine Est GFR ( Amer) Est GFR (Non-Af Amer) BUN/Creatinine Ratio Glucose POC Glucose (mg/dL) 152 H 149 H 201 H Calcium 10/03/18 10/03/18 10/03/18 06:57 06:57 06:57 WBC 11.1 H RBC 3.52 L Hgb 9.3 L Hct 29 L MCV 81 MCH 26 L MCHC 33 RDW 16 H Plt Count 367 MPV 7.2 L INR (Anticoag Therapy) 3.30 H Sodium 141 Potassium 4.1 Chloride 106 Carbon Dioxide 26 Anion Gap 9 BUN 48 H Creatinine 2.31 H Est GFR ( Amer) 26.1 Est GFR (Non-Af Amer) 21.6 BUN/Creatinine Ratio 20.8 H Glucose 108 H POC Glucose (mg/dL) Calcium 9.3 10/03/18 07:38 WBC RBC Hgb Hct MCV MCH MCHC RDW Plt Count MPV INR (Anticoag Therapy) Sodium Potassium Chloride Carbon Dioxide Anion Gap BUN Creatinine Est GFR ( Amer) Est GFR (Non-Af Amer) BUN/Creatinine Ratio Glucose POC Glucose (mg/dL) 118 H Calcium ] Assessment: [s/p R ankle I and D with vac placement POD # 10] Plan: [Abx per ID NWB RLE Wound Vac changed 10/03/18 - due for another change on 10/06/18 D/C tomorrow ,per medicine ,to [facility]]
--- NOTE | 2018-10-03 14:35 | PN ---
Subjective Date of Service: 10/03/18 Interval History: Feels well, no pain Has no complaints Family History: Unchanged from Admission Social History: Unchanged from Admission Past Medical History: Unchanged from Admission Objective Active Medications: Acetaminophen (Tylenol Tab*) 650 mg PO Q4H PRN PRN Reason: FEVER/PAIN Last Admin: 09/29/18 07:54 Dose: 650 mg Al Hydrox/Mg Hydrox/Simethicone (Maalox Plus*) 30 ml PO Q6H PRN PRN Reason: INDIGESTION Allopurinol (Zyloprim Tab*) 100 mg PO DAILY WITH MEAL [facility] Last Admin: 10/03/18 09:33 Dose: 100 mg Atorvastatin Calcium (Lipitor*) 40 mg PO DAILY [facility] Last Admin: 10/03/18 09:33 Dose: 40 mg Famotidine (Pepcid Tab*) 20 mg PO DAILY [facility] Last Admin: 10/03/18 09:32 Dose: 20 mg Ferrous Gluconate (Fergon Tab*) 324 mg PO TID [facility] Last Admin: 10/03/18 09:33 Dose: 324 mg Furosemide (Lasix Tab*) 20 mg PO DAILY [facility] Last Admin: 10/03/18 09:33 Dose: 20 mg Cefazolin Sodium 1 gm/ Sodium (Chloride) 50 mls @ 200 mls/hr IVPB Q12H [facility] Last Admin: 10/03/18 03:05 Dose: 200 mls/hr Insulin Human Lispro (Humalog*) 0 units SUBCUT ACHS [facility]; Protocol Last Admin: 10/03/18 12:47 Dose: 1 units Labetalol HCl (Trandate Tab*) 300 mg PO BID [facility] Last Admin: 10/03/18 09:32 Dose: 300 mg Lisinopril (Prinivil Tab*) 5 mg PO DAILY [facility] Pto: Semaglutide [ (Ozempic] 0.5 Mg) 0.5 mg INJ Fr@2100 [facility] Last Admin: 10/01/18 21:51 Dose: 0.5 mg Ondansetron HCl (Zofran Inj*) 4 mg IV Q6H PRN PRN Reason: NAUSEA Pharmacy Profile Note (Coumadin Daily Reminder*) 1 note FOLLOW UP 1700 [facility] Last Admin: 10/02/18 16:54 Dose: 1 note Sodium Bicarbonate (Sodium Bicarbonate (Antacid)*) 325 mg PO BID [facility] Last Admin: 10/03/18 09:33 Dose: 325 mg Vital Signs - 8 hr 10/03/18 10/03/18 10/03/18 07:00 08:00 11:00 Temperature 97.6 F 97.6 F Pulse Rate 64 69 Respiratory 14 18 18 Rate Blood Pressure 168/71 150/68 (mmHg) O2 Sat by Pulse 98 98 99 Oximetry 10/03/18 11:20 Temperature Pulse Rate Respiratory 18 Rate Blood Pressure (mmHg) O2 Sat by Pulse Oximetry Oxygen Devices in Use Now: None Appearance: sitting in chair, NAD Eyes: No Scleral Icterus, PERRLA Ears/Nose/Mouth/Throat: NL Teeth, Lips, Gums, Clear Oropharnyx Neck: NL Appearance and Movements; NL JVP, Trachea Midline Respiratory: Symmetrical Chest Expansion and Respiratory Effort, Clear to Auscultation Cardiovascular: NL Sounds; No Murmurs; No JVD, RRR Abdominal: NL Sounds; No Tenderness; No Distention Lymphatic: No Cervical Adenopathy Extremities: No Edema Skin: - - right ankle with wound vac in place Neurological: Alert and Oriented x 3 Result Diagrams: 10/03/18 06:57 10/03/18 06:57 Additional Lab and Data: Above labs were pulled in to the note, when the note was edited prior to signing. Please see below for labs from the day of the consultation. Laboratory Tests 09/21/18 09/21/18 09/21/18 02:00 06:55 06:55 WBC 22.0 H Hgb 9.2 L Hct 28 L Plt Count 213 Sodium 136 Potassium 3.7 Chloride 100 L Carbon Dioxide 21 L BUN 69 H Creatinine 4.50 H Glucose 119 H C-Reactive Protein 392.05 H Microbiology and Other Data: Microbiology 09/21/18 16:00 Stool Occult Blood (CARMINE) - Final Stool Diagnostic Imagin. Exam Date: 09/20/182337 - FOOT RIGHT 3+ VWS IMPRESSION: 1. DIFFUSE SOFT TISSUE SWELLING. 2. SEVERE CHARCOT ARTHROPATHY AND POSTSURGICAL CHANGES IN THE HINDFOOT. 3. THE STUDY IS LIMITED IN EVALUATION FOR OSTEOMYELITIS DUE TO THE CHARCOT JOINT CHANGES. 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 Synovial fluid analysis showed urte crystals Received one dose of IA steroid. c/w allopurinol (2) Right foot infection Comment: Right ankle wound; I and D done with right fibula saucerization done. tissue culture from right fibula negative. Continue abx for total of 2 weeks - last day 10/04 Patient is on cefazolin: day 13 of abx Wound vac dressing every 3 days. Next 10/06 (3) Cellulitis Comment: with abscess S/P I&D wound growing MSSA continue cefazolin (per ID); day 13 of antibiotics (4) Anemia Comment: On oral iron (5) Charcot foot due to diabetes mellitus Comment: bilateral charcot foot right side ulcer, prulent discharge seen, culture was negative MRI foot done: bone marrow edema noted in surrounding bones, OM cannot be excluded right foot I&D and right fibula saucerization done. (6) Troponin level elevated Comment: Likely demand due to sepsis No ECG changes, no chest pain Pre-op stress test was low risk (7) Acute on chronic renal insufficiency Comment: Creatinine is on baseline now -Continue watchful waiting (8) Diabetes mellitus Comment: BGs are acceptable on semaglutide (weekly) and lispro (9) Hypertension Comment: remain elevated start lisinopril 5mg c/w increase Labetalol at 300 mg BID. Furosemide 20 mg daily (10) Pulmonary thromboembolism Comment: history of PE on shelter coumadin INR is supratherapeutic stopped warfarin 5 mg. Monitor inr tomorrow. (11) DVT prophylaxis Comment: -As above Status and Disposition: Medicine inpatient. INR supratherapetic d/c tomorrow after overnight dose of abx
--- NOTE | 2018-10-03 18:11 | DS ---
CC: Dr. Pastor; at [facility] Internal Medicine* DISCHARGE SUMMARY: DATE OF ADMISSION: 09/21/18 DATE OF ANTICIPATED DISCHARGE: 10/04/18 PRIMARY CARE PROVIDER: Dr. Pastor. DISPOSITION AT DISCHARGE: [facility] subacute rehab. CONDITION ON DISCHARGE: Good. PRIMARY DIAGNOSES: 1. Right lower extremity infected ulcer with cellulitis, status post I and D and wound VAC placement by Dr. Jean-Baptiste. 2. Left knee gout flare. 3. Acute on chronic kidney injury. 4. Sepsis secondary to cellulitis. SECONDARY DIAGNOSES: Include: 1. Anemia. 2. Charcot foot bilateral. 3. Elevated troponin. 4. Chronic kidney disease. 5. Type 2 diabetes. 6. Hypertension. 7. History of pulmonary thromboembolism, on Coumadin. 8. Gout. 9. Hyperlipidemia. 10. Osteoarthritis. MEDICATIONS AT DISCHARGE: Include: 1. Coumadin dose to be determined tomorrow. 2. Allopurinol 100 mg daily. 3. Lasix 20 mg daily. 4. Semaglutide 0.25 mg weekly on Thursday. 5. Acetaminophen 650 mg every 4 hours as needed for pain or fever. 6. Vitamin D 50,000 units weekly. 7. Fergon 325 mg 3 times a day. 8. Pepcid 20 mg daily. 9. Crestor 20 mg daily. 10. Labetalol 300 mg twice daily. 11. Sodium bicarbonate 325 mg twice daily. 12. Lisinopril 5 mg daily. PERTINENT LABS DURING HOSPITAL STAY: White blood cell on presentation 23,000, on discharge 11,000; hemoglobin on discharge 9.3. Creatinine on presentation 4.5, peaked at 4.8, on discharge 2.3. Hemoglobin A1c 7.5%. Troponin I peaked at 0.11. Left knee synovial fluid positive for urate crystals. Microbiology: Gram positive and negative bacilli from right ankle tissue taken at the time of I and D, negative for bacteria, MSSA also positive from right foot. PROCEDURES PERFORMED DURING HOSPITAL STAY: I and D of right ankle ulcer with saucerization. Nuclear medicine myocardial multiphase resting cardiac stress test, impression: Low risk. MRI, right lower extremity: Postsurgical changes and findings most consistent with Charcot arthropathy in the hind foot. As noted, there is mild bone marrow edema in the surrounding bones, likely related to the arthropathy, although osteomyelitis cannot be ruled out. Please note bone biopsy or tissue taken at the time of surgery had no growth. HISTORY OF PRESENT ILLNESS AND HOSPITAL COURSE: This is a 58-year-old female with past medical history as outlined in the history of present illness, on the day of admission presented to the hospital with pain in right heel with ulceration, found to be febrile to 100.5 associated with leukocytosis, found in the setting of sepsis secondary to cellulitis, was treated with IV broad- spectrum antibiotics before narrowing to cefazolin after wound cultures returned as indicated above. Her wound VAC was maintained by Orthopedic Surgery , changed every 3 days, next change is 10/06/18. She received IV fluids in addition to her antibiotics. Her kidney function improved dramatically, currently as good as last checked in December 2016. Elevated troponin thought to be in setting of type 2 demand ischemia in the setting of sepsis, collaborated by low risk stress test performed preoperatively. She was restarted on her Coumadin, remained subtherapeutic for some time until ultimately became supratherapeutic. Final dose of Coumadin will be determined on day of discharge tomorrow, 10/04/18. She did develop left knee pain during the course of the hospital stay. Ultimately, left knee was aspirated by Orthopedic Surgery. Urate crystals were identified consistent with previous gout attacks. She received intraarticular injection of steroids with complete resolution of her pain. She notes that this is the first time she has had a crystal diagnosis for her gout that has affected her for quite some time. At followup, please: 1. Ensure the patient continues to have wound VAC changed every 3 days, next change 10/06/18. Should follow with Orthopedic Surgery in 1 week. 2. Repeat INR in 3 days, adjust Coumadin as necessary. 3. Continue to follow blood pressure, adjust medications as necessary. Lisinopril was started day prior to discharge, adjust up as necessary. 4. Follow creatinine closely in the setting of advanced CKD. No other specific labs or vitals that need followup. Reasons to return to the hospital including, but not limited to recurrent or worsening symptoms, fevers, chills, night sweats, chest pain, shortness of breath, nausea, vomiting, lightheadedness, loss of consciousness, worsening pain in the right lower extremity, inability to obtain or tolerate medications discussed, the patient acknowledged understanding. TIME SPENT: Greater than 45 minutes was spent on the discharge of this patient , greater than half was spent [id number] with the patient. [id number]/CPS #: [id number] KATELYN
[2018-10-04] MEDS: ceFAZolin 1 GM ADVAN(*) 1 GM in NS 0.9% 50 ML* 50 ML IVPB SCH (03:30)
[2018-10-04 06:11] LABS: INR 2.75 (0.82-1.09)
[2018-10-04] MEDS: Insulin LISPRO* 1 UNITS UNIT SUBCUT SCH ×2 (07:46→12:40)
[2018-10-04] MEDS: Allopurinol TAB* 100 MG PO SCH (07:58)
[2018-10-04] MEDS: Atorvastatin* 40 MG TAB PO SCH (07:59)
[2018-10-04] MEDS: Famotidine TAB* 20 MG PO SCH (07:59)
[2018-10-04] MEDS: Ferrous Gluconate TAB* 324 MG TAB PO SCH ×2 (08:00→14:17)
[2018-10-04] MEDS: Labetalol TAB* 300 MG PO SCH (08:00)
[2018-10-04] MEDS: Sodium Bicarbonate (ANTACID)* 650 MG TAB PO SCH (08:01)
[2018-10-04] MEDS: Furosemide TAB* 20 MG PO SCH (08:02)
[2018-10-04] MEDS ORDERED: Lisinopril TAB* 5 MG PO SCH (09:00)
--- NOTE | 2018-10-04 10:36 | DS ---
Addendum to previously dictated discharge summary: Medications on discharge include also: Keflex 500mg po BID for 21 days (on final recs of Juan J Ferguson, infectious disease) Coumadin 3mg po daily.
--- NOTE | 2018-10-04 10:51 | PN ---
Progress Note - Progress Note Date of Service: 10/04/18 SOAP: Subjective: CC: cellulitis HPI: 58 year old woman with right leg cellulitis and lateral ankle wound; s/p I& D of wound and fibula. Leg swelling and redness improve. She feels well, no leg pain or fever. Objective: Vital Signs Temp 36.3 C 10/04/18 07:45 Pulse 75 10/04/18 10:05 Resp 18 10/04/18 08:00 BP 145/71 10/04/18 10:05 Pulse Ox 99 10/04/18 07:45 Intake & Output 10/03/18 10/04/18 10/04/18 18:59 06:59 18:59 Intake Total 1170 70 315 Output Total 2500 300 850 Balance -1330 -230 -535 Intake: IV Fluids 20 NS 20 IVPB 0 50 Cefazolin 0 50 Oral 1170 0 315 Output: Urine 2500 300 850 Other: Date of Last Bowel [id number] Movement # Bowel Movements 1 0 Estimated Stool Amount Medium Medium Gen:awake, no distress HEENT: no thrush Heart:RRR no murmur Lungs:CTA BL Abd:+BS NTND soft Skin: no rash MSK: Right leg no erythema, R foot wrapped Vital Signs Temp 36.3 C 10/04/18 07:45 Pulse 75 10/04/18 10:05 Resp 18 10/04/18 08:00 BP 145/71 10/04/18 10:05 Pulse Ox 99 10/04/18 07:45 Intake & Output 10/03/18 10/04/18 10/04/18 18:59 06:59 18:59 Intake Total 1170 70 315 Output Total 2500 300 850 Balance -1330 -230 -535 Intake: IV Fluids 20 NS 20 IVPB 0 50 Cefazolin 0 50 Oral 1170 0 315 Output: Urine 2500 300 850 Other: Date of Last Bowel [id number] Movement # Bowel Movements 1 0 Estimated Stool Amount Medium Medium Gen:awake, no distress HEENT: no thrush Heart:RRR no murmur Lungs:CTA BL Abd:+BS NTND soft Skin: no rash MSK: no spine tenderness, R foot wrapped, no leg erythema Abnormal Lab Results 10/03/18 10/03/18 10/03/18 11:53 16:52 21:13 INR (Anticoag Therapy) POC Glucose (mg/dL) 148 H 128 H 164 H 10/04/18 10/04/18 05:52 07:41 INR (Anticoag Therapy) 2.75 H POC Glucose (mg/dL) 95 Assessment: 1. right leg cellulitis 2. chronic non pressure right ankle wound with underlying likely chronic osteomyelitis 3. obesity 4. diabetes, charcot arthropathy 5. CKD Plan: 1. had 2 weeks ancef, now keflex 500 mg po bid for 3 more weeks, discussed with IM team. 35 minutes floor time >50% face to face in counseling regarding antibiotic plans.
[2018-10-04] MEDS ORDERED: Cephalexin CAP* 500 MG PO SCH (11:00)
[2018-10-04 15:15] VITALS: BP 136/64
== END 2018-10-04 17:10 | DRG 710 ==
LOC: ED 21:00 → MEDTELE 09-21 05:15 → MED 09-27 19:10
PROVIDERS: ADMIT Internal Medicine; ATTEND Internal Medicine
PROC: 0QBJ0ZZ Excision of Right Fibula, Open Approach (ICD-10-PCS; principal; 2018-09-23 12:15)
PROC: 0S9D3ZX Drainage of Left Knee Joint, Percutaneous Approach, Diagnostic (ICD-10-PCS; 2018-09-29)
DX: A41.9 Sepsis, unspecified organism (principal); L03.115 Cellulitis of right lower limb; N17.9 Acute kidney failure, unspecified; L97.419 Non-pressure chronic ulcer of right heel and midfoot with unspecified severity; I24.8 Other forms of acute ischemic heart disease; N18.5 Chronic kidney disease, stage 5; N39.0 Urinary tract infection, site not specified; L02.611 Cutaneous abscess of right foot; Z68.41 Body mass index [BMI] 40.0-44.9, adult; M10.9 Gout, unspecified; E11.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 with diabetic neuropathic arthropathy; E11.22 Type 2 diabetes mellitus with diabetic chronic kidney disease; I12.9 Hypertensive chronic kidney disease with stage 1 through stage 4 chronic kidney disease, or unspecified chronic kidney disease; E78.5 Hyperlipidemia, unspecified; M19.90 Unspecified osteoarthritis, unspecified site; B95.61 Methicillin susceptible Staphylococcus aureus infection as the cause of diseases classified elsewhere; E11.621 Type 2 diabetes mellitus with foot ulcer; R79.1 Abnormal coagulation profile; E78.00 Pure hypercholesterolemia, unspecified; M06.9 Rheumatoid arthritis, unspecified; H35.30 Unspecified macular degeneration; Z87.891 Personal history of nicotine dependence; R65.20 Severe sepsis without septic shock; E66.9 Obesity, unspecified; D50.9 Iron deficiency anemia, unspecified; Z79.01 Long term (current) use of anticoagulants; Z86.711 Personal history of pulmonary embolism; Z79.84 Long term (current) use of oral hypoglycemic drugs; Z86.718 Personal history of other venous thrombosis and embolism; Z98.42 Cataract extraction status, left eye; Z98.41 Cataract extraction status, right eye; Z82.49 Family history of ischemic heart disease and other diseases of the circulatory system; Z83.3 Family history of diabetes mellitus; Z72.89 Other problems related to lifestyle
CPT/HCPCS: 36415; 71046; 78452; 80048; 80053; 80202; 81003; 81015; 82272; 82565; 83036; 83605; 83880; 84484; 84520; 84550; 85025; 85027; 85610; 85730; 86140; 87040; 87045; 87046; 87070; 87073; 87077; 87086; 87186; 87205; 87640; 87641; 88305; 89051; 89060; 93005; 93017; 93922; 93970; 99284; A9270-GY; A9502; J0280; J0690; J1040; J1170; J1644; J2250; J2543; J2785; J3010; J3370; J3480

== ENCOUNTER 2018-10-30 11:27 | Emergency (ER) | payer OTHER ==
--- OUTSIDE RECORDS SUMMARY | 2018-10-30 11:55 | XMS REPORT | Continuity of Care Document ---
:1960 External Reference #:[id number] Author Name Atul Monroy MD (transmitted by agent of provider Hannah Huntley) Address [address] [place] [address] Care Team Providers Name Role Phone Cayla Cervantes MD - Student in an Care Team Information Frame Changer Organized Health Care Education/Training Program Problems Active Problems Provider Date Acute renal failure syndrome Candace Pabon DO Onset: 11/03/2017 Essential hypertension Candace Pabon DO Onset: 11/03/2017 Chronic kidney disease stage 3 Candace Pabon DO Onset: 11/03/2017 Type 2 diabetes mellitus Candace Pabon DO Onset: 11/03/2017 Pulmonary embolism Candace Pabon DO Onset: 11/03/2017 Difficulty breathing Kadeem Monson MD Onset: 11/04/2017 Anemia Kadeem Monson MD Onset: 11/04/2017 Chronic kidney disease Kadeem Monson MD Onset: 11/04/2017 Joint pain Kadeem Monson MD Onset: 11/07/2017 Long-term current use of insulin Kadeem Monson MD Onset: 2017 Charcot's joint of foot Ruben Jean-Baptiste MD Onset: 09/23/2018 Type 2 diabetes mellitus with ulcer Ruben Jean-Baptiste MD Onset: 09/23/2018 Cellulitis of right lower limb Ruben Jean-Baptiste MD Onset: 09/23/2018 Acute osteomyelitis of ankle and/or Ruben Jean-Baptiste MD Onset: 09/23/2018 foot Type 2 diabetes mellitus with diabetic Ruben Jean-Baptiste MD Onset: 10/08/2018 neuropathic arthropathy Social History Type Date Description Comments Sex Unknown ETOH Use Occasionally consumes alcohol Tobacco Use Start: Unknown End: Patient is a former quit smoking 2008 Unknown smoker Recreational Drug Use Denies Drug Use Smoking Status Reviewed: 10/22/18 Patient is a former quit smoking 2008 smoker Exercise Type/Frequency Exercises regularly walking- daily and chair yoga 3-4 times per week Allergies, Adverse Reactions, Alerts Description No Known Drug Allergies Medications Active Medications SIG Qnty Indications Ordering Date Provider Lisinopril take once daily 30tabs I10 Isabel Kilpatrick MD 10/11/2018 5mg Tablets Transfer Chair use as needed for E11.621 Ruben Jean-Baptiste, 10/08/2018 transfer assistance ht: 64" wt: 259 lbs L03.115 Humalog Kwikpen 4-6 units with 3ml Atul Monroy MD 10/04/2018 100Unit/ML meals plus sliding Solution Pen-Inject scale Ozempic Hold On File For 3ml E11.22 Atul Monroy MD 08/24/2018 1mg/Dose Solution Second Month, 1mg Pen-Inject injection once weekly Colchicine 1 by mouth daily as 30tabs Atul Monroy MD 06/03/2018 0.6mg Tablets needed for gout Chlorthalidone once daily Unknown 25mg Tablets Labetalol HCL 1 tablet twice Unknown 200mg Tablets daily Sodium Bicarbonate 1 tablet 4 times Unknown 650mg daily Tablets Coumadin as directed Unknown 3mg Tablets Turmeric 1 by mouth every Unknown 500mg Capsules day Iron 1 tablet 3 times Unknown 325(65Fe) mg Tablets daily Cephalexin take 1 capsule by Unknown 500mg Capsules mouth twice a day History Medications Ozempic inject 0.25mg 1.500ml E11.22 Atul Monroy MD 08/24/2018 - 0.25or 0.5 weekly for 2 10/21/2018 mg/Dose Solution weeks, then Pen-Inject increase to 0.5mg weekly Medications Administered in Office Medication SIG Qnty Indications Ordering Provider Date Records Shirin Wood M.D. 08/10/2018 Injection Records Shirin Wood M.D. 06/25/2018 Injection Immunizations Description No Information Available Vital Signs Date Vital Result Comment 10/22/2018 9:44am Height 64 inches 5'4" Weight 249.00 lb w/ shoes Heart Rate 88 /min BP Systolic Sitting 119 mmHg BP Diastolic Sitting 72 mmHg BMI (Body Mass Index) 42.7 kg/m2 10/15/2018 11:14am Height 64 inches 5'4" Weight 258.00 lb Heart Rate 80 /min BP Systolic 130 mmHg BP Diastolic 78 mmHg Body Temperature 99.4 F Pain Level 1 BMI (Body Mass Index) 44.3 kg/m2 Results Test Date Facility Test Result H/L Range Note Protime W/ Inr [facility] Inr 1.96 High 0.82-1.09 [address] [place] [address] [phone] Protime W/ Inr [facility] Inr 2.47 High 0.82-1.09 [address] [place] [address] [phone] Urine [facility] Urine 70.93 mg/dL Microalbumin [address] [address] [phone] Ur Microalbumin (mg/L) 2109.4 mg/L Urine Microalbumin/Creatinine 2973.9 High <31 Comp Metabolic 10/12/2018 [facility] Sodium 141 mmol/L Normal 135-[address] [place] [address] [phone] Potassium 4.2 mmol/L Normal 3.5-5.0 Chloride 106 mmol/L Normal 101-111 Co2 Carbon Dioxide 25 mmol/L Normal 22-32 Anion Gap 10 mmol/L Normal 2-11 Calcium 9.6 mg/dL Normal 8.6-10.3 Albumin 3.6 g/dL Normal 3.2-5.2 Total Bilirubin 0.40 mg/dL Normal 0.2-1.0 Glucose 91 mg/dL Normal 70-100 Blood Urea Nitrogen 34 mg/dL High 6-24 Creatinine 2.55 mg/dL High 0.51-0.95 BUN/Creatinine Ratio 13.3 Normal 8-20 Total Protein 6.8 g/dL Normal 6.4-8.9 Globulin 3.2 g/dL Normal 2-4 Albumin/Globulin Ratio 1.1 Normal 1-3 Alkaline Phosphatase 107 U/L High 34-104 Alt 11 U/L Normal 7-52 Ast 21 U/L Normal 13-39 Egfr Non- 19.3 >60 Egfr 23.3 >60 3 1 Standard intensity warfarin therapeutic range: 2.0-3.0 High intensity warfarin therapeutic range: 2.5-3.5 2 Standard intensity warfarin therapeutic range: 2.0-3.0 High intensity warfarin therapeutic range: 2.5-3.5 3 Because ethnic data is not always readily [...] (or dialysis) Procedures Date Code Description Status 09/29/2018 64954 Inject/Drain Joint/Bursa Major W/O US Completed 09/23/2018 88214 Negative Pressure Wound Therapy Less Than 50 Square CM Completed 09/23/2018 22044 Treadmill Interp/Report Only Completed 09/23/2018 66691 Stress Test Supervsn W/Out I/R Completed 09/23/2018 52964 Partial Excision, Bone;Fibula Completed 09/23/2018 54355 Partial Excision, Bone;Fibula Completed 07/30/2017 602988875 Diabetic Foot Exam Completed Medical Devices Description No Information Available Encounters Type Date Location Provider Dx Diagnosis Office Visit 10/04/2018 [place] Ninfa Thomas L03.115 Cellulitis of 6:20a Fei Tapia M.D. 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 D64.9 Anemia, unspecified R74.8 Abnormal levels of other serum enzymes N17.9 Acute kidney failure, unspecified I10 Essential (primary) hypertension I26.99 Other pulmonary embolism without acute cor pulmonale Office Visit 09/29/2018 9:23a [facility] E11.622 Type 2 For Infectious Tubbs, BOTTLE HOP diabetes Diseases mellitus with other skin ulcer 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 D64.9 Anemia, unspecified R79.1 Abnormal coagulation profile R74.8 Abnormal levels of other serum enzymes N17.9 Acute kidney failure, unspecified I10 Essential (primary) hypertension I26.99 Other pulmonary embolism without acute cor pulmonale Office Visit 09/26/2018 [facility] E11.610 Type 2 diabetes 9:10a Assoc,arlet Andersen DO mellitus w Hospitalists diabetic neuropathic arthropathy L03.115 Cellulitis of right lower limb N17.9 Acute kidney failure, unspecified R74.8 Abnormal levels of other serum enzymes D64.9 Anemia, unspecified D68.59 Other primary thrombophilia I10 Essential (primary) hypertension Office Visit 09/25/2018 [facility] E11.610 Type 2 diabetes 9:07a Assoc,arlet Andersen DO mellitus w Hospitalists diabetic neuropathic arthropathy L03.115 Cellulitis of right lower limb R74.8 Abnormal levels of other serum enzymes N17.9 Acute kidney failure, unspecified I10 Essential (primary) hypertension I26.99 Other pulmonary embolism without acute cor pulmonale R79.1 Abnormal coagulation profile Office Visit 09/24/2018 8:45a [facility] Kelechi Thomas L03.115 Cellulitis of For Fei Tapia M.D. 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 Office Visit 09/24/2018 9:06a [facility] M14.671 Charcot's Assoc,arlet Andersen DO joint, right Hospitalists ankle and foot L03.115 Cellulitis of right lower limb R74.8 Abnormal levels of other serum enzymes N17.9 Acute kidney failure, unspecified I10 Essential (primary) hypertension I26.99 Other pulmonary embolism without acute cor pulmonale R79.1 Abnormal coagulation profile Office Visit 09/23/2018 [facility] E11.610 Type 2 diabetes 9:06a Assarlet coleman DO mellitus w Hospitalists diabetic neuropathic arthropathy L03.115 Cellulitis of right lower limb R74.8 Abnormal levels of other serum enzymes N17.9 Acute kidney failure, unspecified I10 Essential (primary) hypertension I26.99 Other pulmonary embolism without acute cor pulmonale R79.1 Abnormal coagulation profile Office Visit 09/22/2018 [facility] E11.610 Type 2 diabetes 9:06a arlet Heard DO mellitus w Hospitalists diabetic neuropathic arthropathy L03.115 Cellulitis of right lower limb R74.8 Abnormal levels of other serum enzymes N17.9 Acute kidney failure, unspecified I10 Essential (primary) hypertension I26.99 Other pulmonary embolism without acute cor pulmonale R79.1 Abnormal coagulation profile Office Visit 09/22/2018 11:12a [facility] Kelechi Thomas L03.115 Cellulitis of For Fei Tapia M.D. 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 right foot w unsp severity M79.661 Pain in right lower leg L53.9 Erythematous condition, unspecified Office Visit 09/21/2018 [facility] Lidia E78.5 Hyperlipidemia, 9:05a [place]let M.D. 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 foot Assessments Date Code Description Provider 10/22/2018 E11.621 Type 2 diabetes mellitus with foot Atul Monroy MD ulcer 10/22/2018 I10 Essential (primary) hypertension Atul Monroy MD 10/22/2018 N18.3 Chronic kidney disease, stage 3 Atul Monroy MD (moderate) 10/15/2018 L03.115 Cellulitis of right lower limb Ruben Jean-Baptiste MD 10/15/2018 L97.319 Non-pressure chronic ulcer of right Ruben Jean-Baptiste MD ankle with unspecified severity 10/11/2018 I26.99 Other pulmonary embolism without Cayla Cervantes MD acute cor pulmonale 10/11/2018 E11.621 Type 2 diabetes mellitus with foot Cayla Cervantes MD ulcer 10/11/2018 I10 Essential (primary) hypertension Cayla Cervantes MD 10/08/2018 E11.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 with Ruben Jean-Baptiste MD diabetic neuropathic arthropathy 10/08/2018 E11.621 Type 2 diabetes mellitus with foot Ruben Jean-Baptiste MD ulcer 10/04/2018 L03.115 Cellulitis of right lower limb Kelechi Tapia M.D. 10/04/2018 L97.319 Non-pressure chronic ulcer of right Kelechi Tapia M.D. ankle with unspecified severity 10/04/2018 E11.622 Type 2 diabetes mellitus with other Kelechi Tapia M.D. skin ulcer 10/03/2018 M25.562 Pain in left knee Thanh Cadena M.D. 10/03/2018 Z47.89 Encounter for other orthopedic Julissa Khloe, RPA-C aftercare 10/03/2018 L03.115 Cellulitis of right lower limb Thanh Cadena M.D. 10/03/2018 D64.9 Anemia, unspecified Thanh Cadena M.D. 10/03/2018 E11.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 with Thanh Cadena M.D. diabetic neuropathic arthropathy 10/03/2018 R79.89 Other specified abnormal findings Thanh Cadena M.D. of blood chemistry 10/03/2018 I10 Essential (primary) hypertension Thanh Cadena M.D. 10/03/2018 Z86.711 Personal history of pulmonary Thanh Cadena M.D. embolism 10/02/2018 L03.115 Cellulitis of right lower limb Thanh Cadena M.D. 10/02/2018 E11.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 with Thanh Cadena M.D. diabetic neuropathic arthropathy 10/02/2018 D64.9 Anemia, unspecified Thanh Cadena M.D. 10/02/2018 R74.8 Abnormal levels of other serum Thanh Cadena M.D. enzymes 10/02/2018 N17.9 Acute kidney failure, unspecified Thanh Cadena M.D. 10/02/2018 I10 Essential (primary) hypertension Thanh Cadena M.D. 10/02/2018 I26.99 Other pulmonary embolism without Thanh Cadena M.D. acute cor pulmonale 10/01/2018 L03.115 Cellulitis of right lower limb Thanh Cadena M.D. 10/01/2018 D64.9 Anemia, unspecified Thanh Cadena M.D. 10/01/2018 E11.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 with Thanh Cadena M.D. diabetic neuropathic arthropathy 10/01/2018 R74.8 Abnormal levels of other serum Thanh Cadena M.D. enzymes 10/01/2018 N17.9 Acute kidney failure, unspecified Thanh Cadena M.D. 10/01/2018 I10 Essential (primary) hypertension Thanh Cadena M.D. 10/01/2018 I26.99 Other pulmonary embolism without Thanh Cadena M.D. acute cor pulmonale 09/30/2018 Z47.89 Encounter for other orthopedic Roshni Nichols, FEMI-C aftercare 09/30/2018 L03.115 Cellulitis of right lower limb Thanh Cadena M.D. 09/30/2018 E11.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 with Thanh Cadena M.D. diabetic neuropathic arthropathy 09/30/2018 D64.9 Anemia, unspecified Thanh Cadena M.D. 09/30/2018 R74.8 Abnormal levels of other serum Thanh Cadena M.D. enzymes 09/30/2018 N17.9 Acute kidney failure, unspecified Thanh Cadnea M.D. 09/30/2018 I10 Essential (primary) hypertension Thanh Cadena M.D. 09/30/2018 I26.99 Other pulmonary embolism without Thanh Cadena M.D. acute cor pulmonale 09/29/2018 Z47.89 Encounter for other orthopedic NIKIA Ortiz aftercare 09/29/2018 M25.562 Pain in left knee Sweta Wolf, NIKIA 09/29/2018 E11.622 Type 2 diabetes mellitus with other Vickie Tubbs NP skin ulcer 09/29/2018 M25.462 Effusion, left knee Sweta Wolf, [place] 09/29/2018 L03.115 Cellulitis of right lower limb Thanh Cadena M.D. 09/29/2018 L97.319 Non-pressure chronic ulcer of right Vickie Tubbs NP ankle with unspecified severity 09/29/2018 E11.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 with Thanh Cadena M.D. diabetic neuropathic arthropathy 09/29/2018 L03.115 Cellulitis of right lower limb Vickie Tubbs NP 09/29/2018 D64.9 Anemia, unspecified Thanh Cadena M.D. 09/29/2018 E11.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 with Vickie Tubbs NP diabetic neuropathic arthropathy 09/29/2018 R79.1 Abnormal coagulation profile Thanh Cadena M.D. 09/29/2018 D72.829 Elevated white blood cell count, Vickie Tubbs NP unspecified 09/29/2018 R74.8 Abnormal levels of other serum Thanh Cadena M.D. enzymes 09/29/2018 N17.9 Acute kidney failure, unspecified Thanh Cadena M.D. 09/29/2018 I10 Essential (primary) hypertension Thanh Cadena M.D. 09/29/2018 I26.99 Other pulmonary embolism without Thanh Cadena M.D. acute cor pulmonale 09/28/2018 Z47.89 Encounter for other orthopedic NIKIA Ortiz aftercare 09/28/2018 L03.115 Cellulitis of right lower limb Thanh Cadena M.D. 09/28/2018 E11.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 with Thanh Cadena M.D. diabetic neuropathic arthropathy 09/28/2018 D64.9 Anemia, unspecified Thanh Cadena M.D. 09/28/2018 R79.1 Abnormal coagulation profile Thanh Cadena M.D. 09/28/2018 R74.8 Abnormal levels of other serum Thanh Cadena M.D. enzymes 09/28/2018 I10 Essential (primary) hypertension Thanh Cadena M.D. 09/28/2018 N17.9 Acute kidney failure, unspecified Thanh Cadena M.D. 09/28/2018 I26.99 Other pulmonary embolism without Thanh Cadena M.D. acute cor pulmonale 09/27/2018 Z47.89 Encounter for other orthopedic NIKIA Ortiz aftercare 09/27/2018 L03.115 Cellulitis of right lower limb Thanh Cadena M.D. 09/27/2018 E11.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 with Thanh Cadena M.D. diabetic neuropathic arthropathy 09/27/2018 D64.9 Anemia, unspecified Thanh Cadena M.D. 09/27/2018 R79.1 Abnormal coagulation profile Thanh Cadena M.D. 09/27/2018 R74.8 Abnormal levels of other serum Thanh Cadena M.D. enzymes 09/27/2018 N17.9 Acute kidney failure, unspecified Thanh Cadena M.D. 09/27/2018 I10 Essential (primary) hypertension Thanh Cadena M.D. 09/27/2018 I26.99 Other pulmonary embolism without Thanh Cadena M.D. acute cor pulmonale 09/26/2018 E11.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 with Mayelin Senner, DO diabetic neuropathic arthropathy 09/26/2018 L03.115 Cellulitis of right lower limb Mayelin Senner, DO 09/26/2018 Z98.890 Other specified postprocedural Inder Velazquez PA-C states 09/26/2018 N17.9 Acute kidney failure, unspecified Mayelin Senner, DO 09/26/2018 R74.8 Abnormal levels of other serum Mayelin Senner, DO enzymes 09/26/2018 D64.9 Anemia, unspecified Mayelin Senner, DO 09/26/2018 D68.59 Other primary thrombophilia Mayelin Senner, DO 09/26/2018 I10 Essential (primary) hypertension Mayelin Senner, DO 09/25/2018 E11.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 with Mayelin Senner, DO diabetic neuropathic arthropathy 09/25/2018 L03.115 Cellulitis of right lower limb Mayelin Senner, DO 09/25/2018 Z98.890 Other specified postprocedural Inder Velazquez PA-C states 09/25/2018 R74.8 Abnormal levels of other serum Mayelin Senner, DO enzymes 09/25/2018 N17.9 Acute kidney failure, unspecified Mayelin Senner, DO 09/25/2018 I10 Essential (primary) hypertension Mayelin Senner, DO 09/25/2018 I26.99 Other pulmonary embolism without Mayelin Senner, DO acute cor pulmonale 09/25/2018 R79.1 Abnormal coagulation profile Mayelin Senner, DO 09/24/2018 L03.115 Cellulitis of right lower limb Kelechi Tapia M.D. 09/24/2018 M14.671 Charcot's joint, right ankle and Mayelin Senner, DO foot 09/24/2018 E11.622 Type 2 diabetes mellitus with other Kelechi Tapia M.D. skin ulcer 09/24/2018 L03.115 Cellulitis of right lower limb Mayelin Senner, DO 09/24/2018 L97.319 Non-pressure chronic ulcer of right Kelechi Tapia M.D. ankle with unspecified severity 09/24/2018 Z98.890 Other specified postprocedural DANIELE Fernández states 09/24/2018 E11.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 with Kelechi Tapia M.D. diabetic neuropathic arthropathy 09/24/2018 R74.8 Abnormal levels of other serum Mayelin Senner, DO enzymes 09/24/2018 N17.9 Acute kidney failure, unspecified Mayelin Senner, DO 09/24/2018 I10 Essential (primary) hypertension Mayelin Senner, DO 09/24/2018 I26.99 Other pulmonary embolism without Mayelin Senner, DO acute cor pulmonale 09/24/2018 R79.1 Abnormal coagulation profile Mayelin Senner, DO 09/23/2018 Z01.810 Encounter for preprocedural Gene Conley MD, FAC, cardiovascular examination [facility] 09/23/2018 E11.9 Type 2 diabetes mellitus without Gene Conley MD, FACC , complications [facility] 09/23/2018 E11.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 with Mayelin Senner, DO diabetic neuropathic arthropathy 09/23/2018 L03.115 Cellulitis of right lower limb Mayelin Senner, DO 09/23/2018 R74.8 Abnormal levels of other serum Mayelin Senner, DO enzymes 09/23/2018 N17.9 Acute kidney failure, unspecified Mayeiln Senner, DO 09/23/2018 M14.671 Charcot's joint, right ankle and Ruben Jean-Baptiste MD foot 09/23/2018 I10 Essential (primary) hypertension Mayelin Senner, DO 09/23/2018 I26.99 Other pulmonary embolism without Mayelin Senner, DO acute cor pulmonale 09/23/2018 E11.621 Type 2 diabetes mellitus with foot Samuel Levin , RPA-C ulcer 09/23/2018 R79.1 Abnormal coagulation profile Mayelin Andersen, DO 09/23/2018 E11.621 Type 2 diabetes mellitus with foot Ruben Jean-Baptiste MD ulcer 09/23/2018 L03.115 Cellulitis of right lower limb Samuel Levin, RPA-C 09/23/2018 L03.115 Cellulitis of right lower limb Ruben Jean-Baptiste MD 09/23/2018 M86.171 Other acute osteomyelitis, right Ruben Jean-Baptiste MD ankle and foot 09/22/2018 E11.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 with Mayelin Senadriano, DO diabetic neuropathic arthropathy 09/22/2018 L03.115 Cellulitis of right lower limb Mayelin Andersen, DO 09/22/2018 R74.8 Abnormal levels of other serum Mayelin Jacobadriano, DO enzymes 09/22/2018 N17.9 Acute kidney failure, unspecified Mayelin Senner, DO 09/22/2018 I10 Essential (primary) hypertension Mayelin Ganesh, DO 09/22/2018 I26.99 Other pulmonary embolism without Mayelin Senner, DO acute cor pulmonale 09/22/2018 R79.1 Abnormal coagulation profile Mayelin Ganesh, DO 09/22/2018 L03.115 Cellulitis of right lower limb Kelechi Tapia M.D. 09/22/2018 L97.519 Non-pressure chronic ulcer of other NIKIA Ortiz part of right foot with unspecified severity 09/22/2018 E11.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 with Kelechi Tapia M.D. diabetic neuropathic arthropathy 09/22/2018 M79.661 Pain in right lower leg NIKIA Ortiz 09/22/2018 N18.5 Chronic kidney disease, stage 5 Kelechi Tapia M.D. 09/22/2018 L53.9 Erythematous condition, unspecified NIKIA Ortiz 09/22/2018 L97.519 Non-pressure chronic ulcer of other Kelechi Tapia M.D. part of right foot with unspecified severity 09/22/2018 E11.621 Type 2 diabetes mellitus with foot Kelechi Tapia M.D. ulcer 09/21/2018 E11.622 Type 2 diabetes mellitus with other Vickie Tubbs NP skin ulcer 09/21/2018 E78.5 Hyperlipidemia, unspecified Lidia Warren M.D. 09/21/2018 L97.519 Non-pressure chronic ulcer of other Vickie Tubbs NP part of right foot with unspecified severity 09/21/2018 E11.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 with Lidia Warren M.D. diabetic neuropathic arthropathy 09/21/2018 E11.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 with Vickie Tubbs NP diabetic neuropathic arthropathy 09/21/2018 L03.115 Cellulitis of right lower limb NIKIA Ortiz 09/21/2018 I12.9 Hypertensive chronic kidney disease Lidia Warren M.D. with stage 1 through stage 4 chronic kidney disease, or unspecified chronic kidney disease 09/21/2018 E11.22 Type 2 diabetes mellitus with Lidia Warren M.D. diabetic chronic kidney disease 09/21/2018 E11.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 with NIKIA Ortiz diabetic neuropathic arthropathy 09/21/2018 N18.9 Chronic kidney disease, unspecified Lidia Warren M.D. 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 foot Plan of Treatment Future Appointment(s):01/27/2019 8:40 am - Atul Monroy MD at [facility]11/08/2018 9:00 am - Cayla Cervantes MD at [facility] Internal Medicine - [address]/27/2018 9:00 am - Juan F Hurd MD at [facility] Kezjmxlgpg21/06/2019 - Atul Monroy MDE11.621 Type 2 diabetes mellitus with foot ulcerReferral:Onofre Denson MD, PodiatristInstructions:1. Continue Ozempic 1mg/week. 2. Stop checking blood glucose at home. 3. Stop Lantus. 4. Schedule appointment with Dr. Denson. 5. Continue your other medications as prescribed. 6. Return in 3 months for a follow-up visit.I10 Essential ( primary) [id number] Chronic kidney disease, stage 3 (moderate) Functional Status Description No Information Available Mental Status Description No Information Available Referrals Refer to Reason for Referral Status Appt Date Onofre Denson MD diabetic foot disease Created [address] [place] [address] [phone] Matilda Caballero MD CKD-5, diabetes. Patient Notified 10/27/[address] [facility] [address] [phone]
--- OUTSIDE RECORDS SUMMARY | 2018-10-30 11:55 | XMS REPORT | Continuity of Care Document ---
:1960 External Reference #:[id number] Author Name Ruben Jean-Baptiste MD (transmitted by agent of provider Kenyatta Schroeder) Address [address] [place] [address] Care Team Providers Name Role Phone Cayla Cervantes MD - Student in an Care Team Information Tank Tender Organized Health Care Education/Training Program Problems Active [...] Transfer Chair use as needed for E11.621 Rbuen Jean-Baptiste, 10/08/2018 transfer assistance ht: 64" wt: 259 lbs L03.115 Ozempic Hold On File For 3ml E11.22 [...] Capsules mouth twice a day History Medications Humalog Kwikpen 4-6 units with 3ml Atul Monroy MD 10/04/2018 - meals plus 10/22/2018 100Unit/ML Solution sliding scale Pen-Inject Ozempic inject 0.25mg 1.500ml E11.22 Atul Monroy MD 08/24/2018 - 0.25or 0.5 weekly for 2 10/21/2018 mg/Dose Solution weeks, then Pen-Inject increase to 0.5mg weekly Medications Administered in Office Medication SIG Qnty Indications Ordering Provider Date Records Shirin Wood M.D. 08/10/2018 Injection Records Shirin Wood M.D. 06/25/2018 Injection Immunizations Description No Information Available Vital Signs Date Vital Result Comment 10/22/2018 3:46pm Height 64 inches 5'4" Weight 249.00 lb Heart Rate 79 /min BP Systolic 130 mmHg BP Diastolic 66 mmHg Body Temperature 98.6 F Pain Level 1 BMI (Body Mass Index) 42.7 kg/m2 10/22/2018 9:44am Height 64 inches 5'4" Weight 249.00 lb w/ shoes Heart Rate 88 /min BP Systolic Sitting 119 mmHg BP Diastolic Sitting 72 mmHg BMI (Body Mass Index) 42.7 kg/m2 Results Test Date Facility Test Result H/L Range Note Protime W/ Inr [facility] Inr 1.96 High 0.82-1.09 [address] [place] [address] [phone] Protime W/ Inr [facility] Inr 2.47 High 0.82-1.[address] [place] [address] [phone] Urine [facility] Urine 70.93 mg/dL Microalbumin [address] [place] [address] [phone] Ur Microalbumin (mg/L) 2109.4 mg/L Urine Microalbumin/Creatinine 2973.9 High <31 Comp Metabolic 10/12/2018 [facility] Sodium 141 mmol/L Normal 135-[address] [place] [address] [phone] Potassium 4.2 mmol/L Normal 3.5-5.0 Chloride 106 [...] dialysis) Procedures Date Code Description Status 09/29/2018 47230 Inject/Drain Joint/Bursa Major W/O US Completed 09/23/2018 87569 Negative Pressure Wound Therapy Less Than 50 Square CM Completed 09/23/2018 28280 Treadmill Interp/Report Only Completed 09/23/2018 98989 Stress Test Supervsn W/Out I/R Completed 09/23/2018 33945 Partial Excision, Bone;Fibula Completed 09/23/2018 25490 Partial Excision, Bone;Fibula Completed 07/30/2017 529338250 Diabetic Foot Exam Completed Medical Devices Description No Information Available Encounters Type Date Location Provider Dx Diagnosis Office Visit 10/04/2018 [facility] Ninfa Thomas L03.115 Cellulitis of 6:20a Fei Tapia M.D. right lower limb Diseases 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 E11.622 Type 2 diabetes mellitus with other skin ulcer Office Visit 10/02/2018 9:12a [facility] Thanh L03.115 Cellulitis of [facility] 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 D64.9 Anemia, unspecified R74.8 Abnormal levels of other serum enzymes N17.9 Acute kidney failure, unspecified I10 Essential (primary) hypertension I26.99 Other pulmonary embolism without acute cor pulmonale Office Visit 10/01/2018 9:12a [facility] Thanh L03.115 Cellulitis of [facility] Rivera Cadena 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 R74.8 Abnormal levels of other serum enzymes N17.9 Acute kidney failure, unspecified I10 Essential (primary) hypertension I26.99 Other pulmonary embolism without acute cor pulmonale Office Visit 09/30/2018 9:11a [facility] Thanh Weaver03.115 Cellulitis of [facility] Rivera Cadena 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 D64.9 Anemia, unspecified R74.8 Abnormal levels of other serum enzymes N17.9 Acute kidney failure, unspecified I10 Essential (primary) hypertension I26.99 Other pulmonary embolism without acute cor pulmonale Office Visit 09/29/2018 9:23a [facility] E11.622 Type 2 For Infectious Tubbs, CERTIFIED [place] diabetes Diseases mellitus with other skin ulcer 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 L03.115 Cellulitis of right lower limb 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 D72.829 Elevated white blood cell count, unspecified Office Visit 09/29/2018 9:11a [facility] Thanh L03.115 Cellulitis of [facility] Rivera Cadena 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 D64.9 Anemia, unspecified R79.1 Abnormal coagulation profile R74.8 Abnormal levels of other serum enzymes N17.9 Acute kidney failure, unspecified I10 Essential (primary) hypertension I26.99 Other pulmonary embolism without acute cor pulmonale Office Visit 09/28/2018 9:11a [facility] Thanh L03.115 Cellulitis of [facility] Rivera Cadena 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 D64.9 Anemia, unspecified R79.1 Abnormal coagulation profile R74.8 Abnormal levels of other serum enzymes I10 Essential (primary) hypertension N17.9 Acute kidney failure, unspecified I26.99 Other pulmonary embolism without acute cor pulmonale Office Visit 09/27/2018 9:10a [facility] L03.115 Cellulitis of Assarlet coleman M.D. 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 D64.9 Anemia, unspecified R79.1 Abnormal coagulation profile R74.8 Abnormal levels of other serum enzymes N17.9 Acute kidney failure, unspecified I10 Essential (primary) hypertension I26.99 Other pulmonary embolism without acute cor pulmonale Office Visit 09/26/2018 [facility] E11.610 Type 2 diabetes 9:10a Assoc,arlet Andersen DO mellitus w Hospitalists diabetic neuropathic arthropathy L03.115 Cellulitis of right lower limb N17.9 Acute kidney failure, unspecified R74.8 Abnormal levels of other serum enzymes D64.9 Anemia, unspecified D68.59 Other primary thrombophilia I10 Essential (primary) hypertension Office Visit 09/25/2018 [facility] E11.610 Type 2 diabetes 9:07a Assoc,arlet Andersen DO mellitus w Hospitalists diabetic neuropathic arthropathy L03.115 Cellulitis of right lower limb R74.8 Abnormal levels of other serum enzymes N17.9 Acute kidney failure, unspecified I10 Essential (primary) hypertension I26.99 Other pulmonary embolism without acute cor pulmonale R79.1 Abnormal coagulation profile Office Visit 09/24/2018 8:45a [facility] Kelechi Thomas L03.115 Cellulitis of Stefani Tapia M.D. 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 M14.671 Charcot's Assoc,arlet Andersen DO joint, right Hospitalists ankle and foot L03.115 Cellulitis of right lower limb R74.8 Abnormal levels of other serum enzymes N17.9 Acute kidney failure, unspecified I10 Essential (primary) hypertension I26.99 Other pulmonary embolism without acute cor pulmonale R79.1 Abnormal coagulation profile Office Visit 09/23/2018 [facility] E11.610 Type 2 diabetes 9:06a arlet Heard DO mellitus w Hospitalists diabetic neuropathic arthropathy L03.115 Cellulitis of right lower limb R74.8 Abnormal levels of other serum enzymes N17.9 Acute kidney failure, unspecified I10 Essential (primary) hypertension I26.99 Other pulmonary embolism without acute cor pulmonale R79.1 Abnormal coagulation profile Office Visit 09/22/2018 [facility] E11.610 Type 2 diabetes 9:06a arlet Heard DO mellitus w Hospitalists diabetic neuropathic arthropathy L03.115 Cellulitis of right lower limb R74.8 Abnormal levels of other serum enzymes N17.9 Acute kidney failure, unspecified I10 Essential (primary) hypertension I26.99 Other pulmonary embolism without acute cor pulmonale R79.1 Abnormal coagulation profile Office Visit 09/22/2018 11:12a [facility] Kelechi Thomas L03.115 Cellulitis of For Fei Tapia M.D. right lower limb Diseases 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 N18.5 Chronic kidney disease, stage 5 L97.519 Non-prs chronic ulcer oth prt right foot w unsp severity E11.621 Type 2 diabetes mellitus with foot ulcer Office Visit 09/22/2018 7:54a [facility] Sweta Wolf L97.519 Non-prs chronic [facility] [place] ulcer oth prt [facility] right foot w unsp severity M79.661 Pain in right lower leg L53.9 Erythematous condition, unspecified Office Visit 09/21/2018 [facility] Lidia E78.5 Hyperlipidemia, 9:05a Assarlet coleman M.D. 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 I12.9 Hypertensive chronic kidney disease w stg 1-4/unsp chr kdny E11.22 Type 2 diabetes mellitus w diabetic chronic kidney disease N18.9 Chronic kidney disease, unspecified Office Visit 09/21/2018 8:30a [facility] Vickie Galindo E11.622 Type 2 diabetes [facility] [place], CERTIFIED [place] mellitus with other skin ulcer L97.519 Non-prs chronic ulcer oth prt right foot w unsp severity 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 Office Visit 09/21/2018 7:53a [facility] Sweta Wolf L03.115 Cellulitis of [facility] [place] right lower limb [facility] 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 L97.519 Non-prs chronic ulcer oth prt right foot w unsp severity E11.621 Type 2 diabetes mellitus with foot ulcer Office Visit 08/24/2018 9:00a [facility] Atul Monroy, E11.22 Type 2 diabetes [facility] mellitus w diabetic chronic kidney disease N18.4 [...] mellitus with foot Ruben Jean-Baptiste MD ulcer 10/22/2018 E11.621 Type 2 diabetes mellitus with [...] Z47.89 Encounter for other orthopedic Roshni Nichols, RPA-C aftercare 09/30/2018 L03.115 Cellulitis of right lower limb Thanh Cadena M.D. 09/30/2018 E11.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 with Thanh Cadena M.D. diabetic neuropathic arthropathy 09/30/2018 D64.9 Anemia, unspecified Thanh Cadena M.D. 09/30/2018 R74.8 Abnormal levels of other serum Thanh Cadena M.D. enzymes 09/30/2018 N17.9 Acute kidney failure, unspecified Thanh Cadena M.D. 09/30/2018 I10 Essential (primary) hypertension Thanh Cadena M.D. 09/30/2018 I26.99 Other pulmonary embolism without Thanh Cadena M.D. acute cor pulmonale 09/29/2018 Z47.89 Encounter for other orthopedic NIKIA Ortiz aftercare 09/29/2018 M25.562 Pain in left knee NIKIA Ortiz 09/29/2018 E11.622 Type 2 diabetes mellitus with other Vickie Tubbs NP skin ulcer 09/29/2018 M25.462 Effusion, left knee NIKIA Ortiz 09/29/2018 L03.115 Cellulitis of right lower limb [...] D72.829 Elevated white blood cell count, Vickie Parkerdeborahjuventino Tubbs , CERTIFIED [place] unspecified 09/29/2018 R74.8 Abnormal levels of other [...] DO 09/26/2018 Z98.890 Other specified postprocedural Inder Rosano, PA-C states 09/26/2018 N17.9 Acute kidney failure, [...] DO 09/25/2018 Z98.890 Other specified postprocedural Inder Rosano, PA-C states 09/25/2018 R74.8 Abnormal levels of [...] L97.319 Non-pressure chronic ulcer of right Kelechi D. Macqueen, M.D. ankle with unspecified severity 09/24/2018 Z98.890 [...] Z01.810 Encounter for preprocedural Gene Conley MD, FACC, cardiovascular examination [facility] 09/23/2018 E11.9 Type 2 diabetes mellitus without Gene Conley MD, FACC , complications [facility] 09/23/2018 E11.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 with Mayelin Senner, DO diabetic neuropathic arthropathy 09/23/2018 L03.115 Cellulitis of right lower limb Mayelin Senner, DO 09/23/2018 R74.8 Abnormal levels of other serum Mayelin Senner, DO enzymes 09/23/2018 N17.9 Acute kidney failure, unspecified Mayelin Senner, DO 09/23/2018 M14.671 Charcot's joint, right ankle and Ruben Jean-Baptiste MD foot 09/23/2018 I10 Essential (primary) hypertension Mayelin Senner, DO 09/23/2018 I26.99 Other pulmonary embolism without Mayelin Senner, DO acute cor pulmonale 09/23/2018 E11.621 Type 2 diabetes mellitus with foot DANIELE Puga ulcer 09/23/2018 R79.1 Abnormal coagulation profile Mayelin Andersen, DO 09/23/2018 E11.621 Type 2 diabetes mellitus with foot Ruben Jean-Baptiste MD ulcer 09/23/2018 L03.115 Cellulitis of right lower limb MURALI PugaC 09/23/2018 L03.115 Cellulitis of right lower limb Ruben Jean-Baptiste MD 09/23/2018 M86.171 Other acute osteomyelitis, right Ruben Jean-Baptiste MD ankle and foot 09/22/2018 E11.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 with Mayelin Andersen, DO diabetic neuropathic arthropathy 09/22/2018 L03.115 Cellulitis of right lower limb Mayelin Ganesh, DO 09/22/2018 R74.8 Abnormal levels of other serum Mayelin Andersen, DO enzymes 09/22/2018 N17.9 Acute kidney failure, unspecified Mayelin Senner, DO 09/22/2018 I10 Essential (primary) hypertension Mayelin Andersen, DO 09/22/2018 I26.99 Other pulmonary embolism without Mayelin Ganesh, DO acute cor pulmonale 09/22/2018 R79.1 Abnormal coagulation profile Mayelin Andersen, DO 09/22/2018 L03.115 Cellulitis of right lower [...] Wood M.D. foot Plan of Treatment Future Appointment(s):11/12/2018 11:15 am - Ruben Jean-Baptiste MD at [facility]01/27/2019 8:40 am - Atul Monroy MD at [facility]11/08/2018 9:00 am - Cayla Cervantes MD at [facility] Internal Medicine - [address]/27/2018 9:00 am - Juan F Hurd MD at [facility] Lpmybqncvr74/06/2019 - Ruben Jean-Baptiste MDE11.621 Type 2 diabetes mellitus with foot ulcerReferral:Wound Clinic, Clinic/CenterFoll up:Follow Up: 3 weeks Functional Status Description No Information Available Mental Status Description No Information Available Referrals Refer to Dr Reason for Referral Status Appt Date Onofre Denson MD diabetic foot disease Created [address] [place] [address] [phone] Wound Clinic R heel ulcer Created [address] [place] [address] [phone] Matilda Caballero MD CKD-5, diabetes. Patient Notified 10/27/[address] [facility] [address] [phone]
--- OUTSIDE RECORDS SUMMARY | 2018-10-30 11:56 | XMS REPORT | Continuity of Care Document ---
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 [phone] Organized Health Care Education/Training Program Problems Active [...] End: Patient is a former quit smoking 2007 Unknown smoker Recreational Drug Use Denies Drug Use Smoking Status Reviewed: 10/15/18 Patient is a former quit smoking 2008 [...] meals plus sliding Solution Pen-Inject scale Ozempic inject 0.25mg 1.500ml E11.22 Atul Monroy MD 08/24/2018 0.25or 0.5 mg/Dose weekly for 2 weeks, Solution Pen-Inject then increase to 0.5mg weekly Ozempic Hold On File For 3ml E11.22 Atul Monroy MD 08/24/2018 1mg/Dose Solution Second Month, 1mg Pen-Inject injection once weekly Colchicine 1 by mouth daily as 30tabs Atul Monroy MD 06/03/2018 0.6mg Tablets needed for gout Lantus 14 units at bedtime Unknown 100Unit/ML Solution Chlorthalidone once daily Unknown 25mg Tablets Vitamin D take one capsule by Unknown (Ergocalciferol) mouth once weekly [id number] Capsules Furosemide 1 tablet daily Unknown 20mg Tablets Labetalol HCL 1 tablet twice Unknown 200mg Tablets daily Sodium Bicarbonate 1 tablet 4 times Unknown 650mg daily Tablets Coumadin as directed Unknown 3mg Tablets Turmeric 1 by mouth every Unknown 500mg Capsules day Iron 1 tablet 3 times Unknown 325(65Fe) mg Tablets daily Medications Administered in Office Medication SIG Qnty Indications Ordering Provider Date Records Fee Thanh Wood M.D. 08/10/2018 Injection Records Fee Thanh Wood M.D. 06/25/2018 Injection Immunizations Description No Information Available Vital Signs Date Vital Result Comment 10/15/2018 11:14am Height 64 inches 5'4" Weight 258.00 lb Heart Rate 80 /min BP Systolic 130 mmHg BP Diastolic 78 mmHg Body Temperature 99.4 F Pain Level 1 BMI (Body Mass Index) 44.3 kg/m2 10/11/2018 10:24am Height 64 inches 5'4" Weight 258.00 lb Heart Rate 80 /min BP Systolic Sitting 150 mmHg BP Diastolic Sitting 75 mmHg Body Temperature 97.3 F O2 % BldC Oximetry 98 % BMI (Body Mass Index) 44.3 kg/m2 Results Test Date Facility Test Result H/L Range Note Protime W/ Inr 10/14/2018 [facility] Standing Orders Prothrombin Time <pending> Inr <pending> Protime W/ Inr 10/13/2018 [facility] Inr 2.47 High 0.82-1.[address] [place] [address] [phone] Urine 10/12/2018 [facility] Urine 70.[address] Creatinine mg/[place] [address] [phone] Ur Microalbumin (mg/L) 2109.4 mg/L Urine Microalbumin/Creatinine 2973.9 High <31 Comp Metabolic 10/12/2018 [facility] Sodium 141 mmol/L Normal 135-[address] [place] [address] [phone] Potassium 4.2 mmol/L Normal 3.5-5.0 Chloride 106 [...] Egfr Non- 19.3 >60 Egfr 23.3 >60 2 1 Standard intensity warfarin therapeutic range: 2.0-3.0 High intensity warfarin therapeutic range: 2.5-3.5 2 Because ethnic data is not always readily [...] dialysis) Procedures Date Code Description Status 09/29/2018 11327 Inject/Drain Joint/Bursa Major W/O US Completed 09/23/2018 29030 Negative Pressure Wound Therapy Less Than 50 Square CM Completed 09/23/2018 80792 Treadmill Interp/Report Only Completed 09/23/2018 32473 Stress Test Supervsn W/Out I/R Completed 09/23/2018 04787 Partial Excision, Bone;Fibula Completed 09/23/2018 28761 Partial Excision, Bone;Fibula Completed 07/30/2017 001652601 Diabetic Foot Exam Completed Medical Devices Description No Information Available Encounters Type Date Location Provider Dx Diagnosis Office Visit 10/04/2018 [facility] Stefani Thomas L03.115 Cellulitis of 6:20a Fei Tapia M.D. 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 Thanh L03.115 Cellulitis of Assoc,arlet Cadena M.D. 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 Thanh L03.115 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 Thanh Weaver03.115 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 Thanh L03.115 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 D64.9 Anemia, unspecified R79.1 Abnormal coagulation profile R74.8 Abnormal levels of other serum enzymes N17.9 Acute kidney failure, unspecified I10 Essential (primary) hypertension I26.99 Other pulmonary embolism without acute cor pulmonale Office Visit 09/26/2018 [facility] E11.610 Type 2 diabetes 9:10a Assoc,arlet Andersen DO mellitus w Hospitalists diabetic neuropathic arthropathy L03.115 Cellulitis of right lower limb N17.9 Acute kidney failure, unspecified R74.8 Abnormal levels of other serum enzymes D64.9 Anemia, unspecified D68.59 Other primary thrombophilia I10 Essential (primary) hypertension Office Visit 09/25/2018 [facility] E11.610 Type 2 diabetes 9:07a Assoc,arlet Andersen DO mellitus w Hospitalists diabetic neuropathic arthropathy L03.115 Cellulitis of right lower limb R74.8 Abnormal levels of other serum enzymes N17.9 Acute kidney failure, unspecified I10 Essential (primary) hypertension I26.99 Other pulmonary embolism without acute cor pulmonale R79.1 Abnormal coagulation profile Office Visit 09/24/2018 8:45a [facility] Kelechi Thomas L03.115 Cellulitis of For Fei Tapia M.D. 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 Office Visit 09/24/2018 9:06a [facility] M14.671 Charcot's Assoc,arlet Andersen DO joint, right Hospitalists ankle and foot L03.115 Cellulitis of right lower limb R74.8 Abnormal levels of other serum enzymes N17.9 Acute kidney failure, unspecified I10 Essential (primary) hypertension I26.99 Other pulmonary embolism without acute cor pulmonale R79.1 Abnormal coagulation profile Office Visit 09/23/2018 [facility] E11.610 Type 2 diabetes 9:06a Assarlet coleman DO mellitus w Hospitalists diabetic neuropathic arthropathy L03.115 Cellulitis of right lower limb R74.8 Abnormal levels of other serum enzymes N17.9 Acute kidney failure, unspecified I10 Essential (primary) hypertension I26.99 Other pulmonary embolism without acute cor pulmonale R79.1 Abnormal coagulation profile Office Visit 09/22/2018 [facility] E11.610 Type 2 diabetes 9:06a Assoc,arlet Andersen DO mellitus w Hospitalists diabetic neuropathic arthropathy L03.115 Cellulitis of right lower limb R74.8 Abnormal levels of other serum enzymes N17.9 Acute kidney failure, unspecified I10 Essential (primary) hypertension I26.99 Other pulmonary embolism without acute cor pulmonale R79.1 Abnormal coagulation profile Office Visit 09/22/2018 11:12a [facility] Kelechi Thomas L03.115 Cellulitis of For [...] L53.9 Erythematous condition, unspecified Office Visit 09/21/2018 [facility] Lidia E78.5 Hyperlipidemia, 9:05a Assarlet coleman M.D. 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 foot Assessments Date Code Description Provider 10/15/2018 L03.115 Cellulitis of right lower limb [...] M.D. 10/03/2018 Z47.89 Encounter for other orthopedic DANIELE Quezada aftercare 10/03/2018 L03.115 Cellulitis of right lower [...] pulmonale 09/30/2018 Z47.89 Encounter for other orthopedic DANIELE Willard aftercare 09/30/2018 L03.115 Cellulitis of right lower [...] E11.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 with Mayelin Andersen DO diabetic neuropathic arthropathy 09/26/2018 L03.115 Cellulitis of right lower limb Mayelin Andersen DO 09/26/2018 Z98.890 Other specified postprocedural Inder Velazquez PA-C states 09/26/2018 N17.9 Acute kidney failure, unspecified Mayelin Andersen, DO 09/26/2018 R74.8 Abnormal levels of other [...] Z01.810 Encounter for preprocedural Gene Conley MD, [facility], cardiovascular examination [facility] 09/23/2018 E11.9 Type 2 diabetes mellitus without Gene Conley MD, FACC , complications [facility] 09/23/2018 E11.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 with [...] with Mayelin Senner, DO diabetic neuropathic arthropathy 09/22/2018 L03.115 Cellulitis of right lower limb Mayelin Senner, DO 09/22/2018 R74.8 Abnormal levels of other serum Mayelin Ganesh, DO enzymes 09/22/2018 N17.9 Acute kidney failure, unspecified Mayelin Ganesh, DO 09/22/2018 I10 Essential (primary) hypertension Mayelin [...] Wood M.D. foot Plan of Treatment Future Appointment(s):11/08/2018 9:00 am - Cayla Cervantes MD at [facility] Internal Medicine - [address]/21/2018 10:30 am - Vickie Tubbs NP at [facility] Agpvzfok98/11/2019 9:00 am - Juan F Hurd MD at [facility] Gczumudljb71/30/2019 - Ruben Jean-Baptiste MDL03.115 Cellulitis of right lower limbFollow up:Follow Up: 1 weekL97.319 Non-pressure chronic ulcer of right ankle with unspecified severity Functional Status Description No Information Available Mental Status Description No Information Available Referrals Refer to Dr Reason for Referral Status Appt Date Matilda Caballero MD CKD-5, diabetes. Patient Notified 10/27/[address] [facility] [address] [phone]
--- OUTSIDE RECORDS SUMMARY | 2018-10-30 11:56 | XMS REPORT | Continuity of Care Document ---
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 Problems Active Problems Provider Date Acute renal [...] Use Denies Drug Use Smoking Status Reviewed: 10/08/18 Patient is a former quit smoking 2008 smoker Exercise Type/Frequency Exercises regularly walking- daily and chair yoga 3-4 times per week Allergies, Adverse Reactions, Alerts Description No Known Drug Allergies Medications Active Medications SIG Qnty Indications Ordering Date Provider Transfer Chair Roshni Nichols, 10/08/2018 RPA-C Humalog Kwikpen 4-6 units with 3ml [facility], 10/04/2018 100Unit/ML meals plus MD Solution Pen-Inject sliding scale Ozempic inject 0.25mg 1.500ml E11.22 [facility], 08/24/2018 0.25or 0.5 mg/Dose weekly for 2 MD Solution Pen-Inject weeks, then increase to 0.5mg weekly Ozempic Hold On File For 3ml E11.22 [facility], 08/24/2018 1mg/Dose Solution Second Month, Pen-Inject 1mg injection once weekly Colchicine 1 by mouth daily 30tabs [facility], 06/03/2018 0.6mg Tablets as needed for gout Lantus 14 units at Unknown 100Unit/ML Solution bedtime Chlorthalidone once daily Unknown 25mg Tablets Vitamin D take one capsule Unknown (Ergocalciferol) by mouth once 13174Wfca weekly Capsules Furosemide 1 tablet daily Unknown [...] Available Vital Signs Date Vital Result Comment 10/08/2018 8:30am Height 64 inches 5'4" Weight 259.00 lb BP Systolic 150 mmHg BP Diastolic 74 mmHg Body Temperature 97.9 F BMI (Body Mass Index) 44.5 kg/m2 08/24/2018 9:15am Height 64 inches 5'4" Weight 266.00 lb walking boot Heart Rate 70 /min BP Systolic Sitting 151 mmHg BP Diastolic Sitting 63 mmHg BMI (Body Mass Index) 45.7 kg/m2 Results Description No Information Available Procedures Date Code Description Status 09/23/2018 76516 Negative Pressure Wound Therapy Less Than 50 Square CM Completed 09/23/2018 57788 Negative Pressure Wound Therapy Less Than 50 Square CM Completed 09/23/2018 80092 Treadmill Interp/Report Only Completed 09/23/2018 89352 Stress Test Supervsn W/Out I/R Completed 09/23/2018 80411 Partial Excision, Bone;Fibula Completed 09/23/2018 47412 Partial Excision, Bone;Fibula Completed 09/23/2018 68869 Debridement Tissue/Muscle/Bone Completed 09/23/2018 91402 Debridement Tissue/Muscle/Bone Completed 07/30/2017 017593272 Diabetic Foot Exam Completed Medical Devices Description No Information Available Encounters Type Date Location Provider Dx Diagnosis Office Visit 09/22/2018 [facility] Kelechi Thomas L03.115 Cellulitis of 11:12a Fei Tapia M.D. right lower limb Diseases [...] L53.9 Erythematous condition, unspecified Office Visit 09/21/2018 7:53a Orthopedic Sweta Wolf L03.115 Cellulitis of [facility] right lower limb [facility] 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 foot Assessments Date Code Description Provider 10/08/2018 E11.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 with Ruben Jean-Baptiste MD diabetic neuropathic arthropathy 10/08/2018 E11.621 Type 2 diabetes mellitus with foot Ruben Jean-Baptiste MD ulcer 10/02/2018 L03.115 Cellulitis of right lower limb [...] Thanh Cadena M.D. acute cor pulmonale 09/30/2018 L03.115 Cellulitis of right lower limb [...] Thanh Cadena M.D. acute cor pulmonale 09/29/2018 L03.115 Cellulitis of right lower limb Thanh Cadena M.D. 09/29/2018 E11.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 with Thanh Cadena M.D. diabetic neuropathic arthropathy 09/29/2018 D64.9 Anemia, unspecified Thanh Cadena M.D. 09/29/2018 R79.1 Abnormal coagulation profile Thnah Cadena M.D. 09/29/2018 R74.8 Abnormal levels of other serum Thanh Cadena M.D. enzymes 09/29/2018 N17.9 Acute kidney failure, unspecified Thanh Cadena M.D. 09/29/2018 I10 Essential (primary) hypertension Thanh Cadena M.D. 09/29/2018 I26.99 Other pulmonary embolism without Thanh Cadena M.D. acute cor pulmonale 09/28/2018 L03.115 Cellulitis of right lower limb [...] Thanh Cadena M.D. acute cor pulmonale 09/27/2018 L03.115 Cellulitis of right lower limb [...] Abnormal coagulation profile Mayelin Senner, DO 09/24/2018 M14.671 Charcot's joint, right ankle and Mayelin Senner, DO foot 09/24/2018 L03.115 Cellulitis of right lower limb Mayelin Senner, DO 09/24/2018 Z98.890 Other specified postprocedural Lucita Sheldon, RPA-C states 09/24/2018 R74.8 Abnormal levels of other serum Mayelin Senner, DO enzymes 09/24/2018 N17.9 Acute kidney failure, unspecified Mayelin Senner, DO 09/24/2018 I10 Essential (primary) hypertension Mayelin Senner, DO 09/24/2018 I26.99 Other pulmonary embolism without Mayelin Senner, DO acute cor pulmonale 09/24/2018 R79.1 Abnormal coagulation profile Mayelin Senner, DO 09/23/2018 E11.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 with Mayelin Senner, DO diabetic neuropathic arthropathy 09/23/2018 L03.115 Cellulitis of right lower limb Mayelin Senner, DO 09/23/2018 M14.671 Charcot's joint, right ankle and Samuel Levin RPA-C foot 09/23/2018 R74.8 Abnormal levels of other serum Mayelin Senner, DO enzymes 09/23/2018 N17.9 Acute kidney failure, unspecified Mayelin Senner, DO 09/23/2018 M14.671 Charcot's joint, right ankle and Ruben Jean-Baptiste MD foot 09/23/2018 I10 Essential (primary) hypertension Mayelin Senner, DO 09/23/2018 I26.99 Other pulmonary embolism without Mayelin Senner, DO acute cor pulmonale 09/23/2018 E11.621 Type 2 diabetes mellitus with foot MURALI PugaC ulcer 09/23/2018 R79.1 Abnormal coagulation profile Mayelin Andersen, DO 09/23/2018 E11.621 Type 2 diabetes mellitus with foot Ruben Jean-Baptiste MD ulcer 09/23/2018 L03.115 Cellulitis of right lower limb Samuel Levin RPA-C 09/23/2018 L03.115 Cellulitis of right lower limb Ruben Jean-Baptiste MD 09/23/2018 M86.171 Other acute osteomyelitis, right DANIELE Puga ankle and foot 09/23/2018 M86.171 Other acute osteomyelitis, right Ruben Jean-Baptiste MD ankle and foot 09/22/2018 E11.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 with Mayelin Senner, DO diabetic neuropathic arthropathy 09/22/2018 L03.115 Cellulitis of right lower limb Mayelin Senner, DO 09/22/2018 R74.8 Abnormal levels of other serum Mayelin Senadriano, DO enzymes 09/22/2018 N17.9 Acute kidney failure, unspecified Mayelin Senner, DO 09/22/2018 I10 Essential (primary) hypertension Mayelin Senadriano, DO 09/22/2018 I26.99 Other pulmonary embolism without [...] with foot Kelechi Tapia M.D. ulcer 09/21/2018 E78.5 Hyperlipidemia, unspecified Lidia Warren M.D. 09/21/2018 L97.519 Non-pressure chronic ulcer of other Vickie Tubbs NP part of right foot with unspecified severity 09/21/2018 E11.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 with Lidia Warren M.D. diabetic neuropathic arthropathy 09/21/2018 L03.115 Cellulitis of right lower limb NIKIA Ortiz 09/21/2018 I12.9 Hypertensive chronic kidney disease Lidia Warren M.D. with stage 1 through stage 4 chronic kidney disease, or unspecified chronic kidney disease 09/21/2018 E11.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 with Vickie Tubbs NP diabetic neuropathic arthropathy 09/21/2018 E11.22 Type 2 diabetes mellitus with Lidia Warren M.D. diabetic chronic kidney disease 09/21/2018 E11.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 with NIKIA Ortiz diabetic neuropathic arthropathy 09/21/2018 N18.9 Chronic kidney disease, unspecified Lidia Warren M.D. 09/21/2018 Z78.9 Other specified health status Vickie Tubbs NP 09/21/2018 L97.519 Non-pressure chronic ulcer of other [...] 07/20/2018 M14.672 Charcot's joint, left ankle and foot Thanh Wood M.D. Plan of Treatment Future Appointment(s):10/15/2018 11:00 am - Ruben Jean-Baptiste MD at [facility]/21/2018 10:30 am - Vickie Tubbs NP at [facility] Qogitxnr55/26/2019 10:00 am - Cayla Cervantes MD at [facility] Internal Medicine - [address]/27/2018 9:00 am - Juan F Hurd MD at [facility] Indrezifik79/06/2019 8:40 am - Atul Monroy MD at [facility]10/08/2018 - Ruben Jean-Baptiste MDE11.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 with diabetic neuropathic wfyeosqdzeqE55.621 Type 2 diabetes mellitus with foot ulcerFollow up:Follow Up: 1 week Functional Status Description No Information Available Mental Status Description No Information Available Referrals Refer to Dr Reason for Referral Status Appt Date Matilda Caballero MD CKD-5, diabetes. Patient Notified 10/27/2018 [address] [facility] [address] [phone]
--- OUTSIDE RECORDS SUMMARY | 2018-10-30 11:56 | XMS REPORT | Continuity of Care Document ---
:1960 External Reference #:[id number] Author Name Cayla Cervantes MD (transmitted by agent of provider Annette Pollard) Address [address] [place] [address] Care Team Providers Name Role Phone Deborah Pastor MD - Care Team Information [employer] [phone] Family Medicine Problems Active Problems Provider Date [...] Use Denies Drug Use Smoking Status Reviewed: 10/11/18 Patient is a former quit smoking 2008 smoker Exercise Type/Frequency Exercises regularly walking- daily and chair yoga 3-4 times per week Allergies, Adverse Reactions, Alerts Description No Known Drug Allergies Medications Active Medications SIG Qnty Indications Ordering Date Provider Lisinopril Take once daily 30tabs I10 Cayla Cervantes, 10/11/2018 5mg MD Tablets Transfer Chair use as needed for E11.621 Ruben Jean-Baptiste, 10/08/2018 transfer assistance ht: 64" wt: 259 lbs L03.115 Humalog Kwikpen 4-6 units with 3ml Atul Monroy MD 10/04/2018 100Unit/ML Solution meals plus Pen-Inject sliding scale Ozempic inject 0.25mg 1.500ml E11.22 Atul Monroy MD 08/24/2018 0.25or 0.5 mg/Dose Solution weekly for 2 Pen-Inject weeks, then increase to 0.5mg weekly Ozempic Hold On File For 3ml E11.22 Atul Monroy MD 08/24/2018 1mg/Dose Solution Second Month, 1mg Pen-Inject injection once weekly Colchicine 1 by mouth daily 30tabs Atul Monroy MD 06/03/2018 0.6mg Tablets as needed for gout Lantus 14 units at Unknown 100Unit/ML Solution bedtime Chlorthalidone once daily Unknown 25mg Tablets Vitamin D (Ergocalciferol) take one capsule Unknown by mouth once [id number] Capsules weekly Furosemide 1 tablet daily Unknown 20mg Tablets Labetalol HCL 1 tablet twice Unknown 200mg Tablets daily Sodium Bicarbonate 1 tablet 4 times Unknown 650mg Tablets daily Coumadin as directed Unknown 2.5mg Tablets Hydroxychloroquine Sulfate take one tablet Unknown 200mg by mouth twice a Tablets day Turmeric 1 by mouth every Unknown 500mg Capsules day Iron 1 tablet 3 times Unknown 325(65Fe) mg Tablets daily Medications Administered in Office Medication SIG Qnty Indications Ordering Provider Date Records Fee Thanh Wood M.D. 08/10/2018 Injection Records Fee Thanh Wood M.D. 06/25/2018 Injection Immunizations Description No Information Available Vital Signs Date Vital Result Comment 10/11/2018 10:24am Height 64 inches 5'4" Weight 258.00 lb Heart Rate 80 /min BP Systolic Sitting 150 mmHg BP Diastolic Sitting 75 mmHg Body Temperature 97.3 F O2 % BldC Oximetry 98 % BMI (Body Mass Index) 44.3 kg/m2 10/08/2018 8:30am Height 64 inches 5'4" Weight 259.00 lb BP Systolic 150 mmHg BP Diastolic 74 mmHg Body Temperature 97.9 F BMI (Body Mass Index) 44.5 kg/m2 Results Test Date Facility Test Result H/L Range Note Protime W/ Inr 10/11/2018 [facility] Standing Orders Prothrombin Time <pending> Inr <pending> Procedures Date Code Description Status 09/23/2018 25007 Negative Pressure Wound Therapy Less Than 50 Square CM Completed 09/23/2018 29354 Negative Pressure Wound Therapy Less Than 50 Square CM Completed 09/23/2018 28724 Treadmill Interp/Report Only Completed 09/23/2018 88583 Stress Test Supervsn W/Out I/R Completed 09/23/2018 08120 Partial Excision, Bone;Fibula Completed 09/23/2018 78891 Partial Excision, Bone;Fibula Completed 09/23/2018 31060 Debridement Tissue/Muscle/Bone Completed 09/23/2018 96857 Debridement Tissue/Muscle/Bone Completed 07/30/2017 301195927 Diabetic Foot Exam Completed Medical Devices Description No Information Available Encounters Type Date Location Provider Dx Diagnosis Office Visit 10/04/2018 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 Kelechi Thomas L03.115 Cellulitis of For Fei Tapia M.D. 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 Kelechi Thomas L03.115 Cellulitis of For Infectious Rivera Tapia right lower limb Diseases E11.610 Type 2 [...] with foot ulcer Office Visit 08/24/2018 9:00a [place] [facility] Atul Monroy, E11.22 Type 2 diabetes [facility] mellitus w diabetic chronic kidney disease N18.4 Chronic kidney disease, stage 4 (severe) 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 E78.5 Hyperlipidemia, unspecified I10 Essential (primary) hypertension Office Visit 07/20/2018 8:30a [facility] Thanh M14.672 Charcot's joint, [facility] [place] [facility] left ankle and C.M.A. foot Assessments Date Code Description Provider 10/11/2018 I26.99 Other pulmonary embolism without Cayla [...] with other Kelechi Tapia M.D. skin ulcer 10/02/2018 L03.115 Cellulitis of right lower [...] Thanh Cadena M.D. acute cor pulmonale 09/29/2018 E11.622 Type 2 diabetes mellitus with other Vickie Tubbs, [employer] skin ulcer 09/29/2018 L03.115 Cellulitis of right lower limb Thanh Cadena M.D. 09/29/2018 L97.319 Non-pressure chronic ulcer of right Vickie Josie Tubbs, [employer] STORAGE CLERK ankle with unspecified severity 09/29/2018 E11.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 with Thanh Cadena M.D. diabetic neuropathic arthropathy 09/29/2018 L03.115 Cellulitis of right lower limb Vickie Josie Tubbs, [employer] STORAGE CLERK 09/29/2018 D64.9 Anemia, unspecified Thanh Cadena M.D. 09/29/2018 E11.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 with Vickiecatalina Tubbs, NADYA diabetic neuropathic arthropathy 09/29/2018 R79.1 Abnormal coagulation profile Thanh Cadena M.D. 09/29/2018 D72.829 Elevated white blood cell count, Vickiecatalina Tubbs , [employer] STORAGE CLERK unspecified 09/29/2018 R74.8 Abnormal levels of other [...] Senner, DO 09/26/2018 Z98.890 Other specified postprocedural NIKIA Yañez-C states 09/26/2018 N17.9 Acute kidney failure, unspecified [...] Senner, DO 09/25/2018 Z98.890 Other specified postprocedural NIKIA Yañez-C states 09/25/2018 R74.8 Abnormal levels of other [...] 09/23/2018 M14.671 Charcot's joint, right ankle and [facility] H. Mckeithen, RPA-C foot 09/23/2018 R74.8 Abnormal levels of [...] of other serum Mayelin Senner, DO enzymes 09/22/2018 N17.9 Acute kidney failure, unspecified Mayelin Senner, DO 09/22/2018 I10 Essential (primary) hypertension Mayelin Senner, DO 09/22/2018 I26.99 Other pulmonary embolism without Mayelin Senner, DO acute cor pulmonale 09/22/2018 R79.1 Abnormal coagulation profile Mayelin Senner, DO 09/22/2018 L03.115 Cellulitis of right lower [...] Thanh Wood M.D. Plan of Treatment Future Appointment(s):11/08/2018 9:00 am - Cayla Cervantes MD at [facility] Internal Medicine - [address]/15/2018 11:00 am - Ruben Jean-Baptiste MD at [facility]10/21/2018 10:30 am - Vickie Tubbs NP at [facility] Cnrjvzwn70/11/2019 9:00 am - Juan F Hurd MD at [facility] Obxieztpjk42/06/2019 8:40 am - Atul Monroy MD at [place] [facility]10/11/2018 - Cayla Cervantes MDI26.99 Other pulmonary embolism without acute cor mcljdrgypD57.621 Type 2 diabetes mellitus with foot ulcerComments:HbA1C was 7.5 on 09/21/2018.Follow up:MICAELA Eye exam.I10 Essential ( primary) hypertensionNew Medication:Lisinopril 5 mg - Take once dailyComments: Please do lab work before next appointment.Follow up:F/U 4 weeks. Functional Status Description No Information Available Mental Status Description No Information Available Referrals Refer to Reason for Referral Status Appt Date Matilda Caballero MD CKD-5, diabetes. Patient Notified 10/27/[address] [facility] [address] [phone]
[2018-10-30 12:35] VITALS: BP 137/66
--- NOTE | 2018-10-30 13:14 | ED ---
Skin Complaint - HPI Summary HPI Summary: This patient is a 58-year-old female presenting to the ED with the concern for a chronic right ankle wound. She was seen at the wound care clinic yesterday and they had placed an iodoform dressing in the area. She states since that times the area has been draining more frequently and this is concerning to her. She states this is been draining through her gauze pads and she is unable to continue to redress the area herself this frequently. She was also concerned over an infection. She had recently discontinued her antibiotics. She has a follow-up with Dr. Tena next week and was given extra iodoform dressing to repack if needed. She states she is unsure how to do this. She does have help at home on Thursday with a visiting nurse services. - History of Current Complaint Chief Complaint: EDGeneral Time Seen by Provider: 10/30/18 11:31 Stated Complaint: OPEN WOUND RT ANKLE PER EMS Hx Obtained From: Patient Onset/Duration: Started Hours Ago Skin Exposure Onset/Duration: Hours Ago Timing: Constant Onset Severity: Moderate Current Severity: Moderate Pain Intensity: 2 Pain Scale Used: 0-10 Numeric Skin Location: Discrete - right lateral ankle pain Aggravating Symptom(s): Nothing Alleviating Symptom(s): Nothing Associated Signs & Symptoms: Negative - Additional Pertinent History Primary Care Physician: [id number] - Allergy/Home Medications Allergies/Adverse Reactions: Allergies Allergy/AdvReac Type Severity Reaction Status Date / Time No Known Allergies Allergy Verified 10/30/18 11:49 PMH/Surg Hx/FS Hx/Imm Hx Previously Healthy: Yes Endocrine/Hematology History: Reports: Hx Anticoagulant Therapy - for Hx PE, coumadin , Hx Diabetes, Hx Anemia Denies: Hx Thyroid Disease Cardiovascular History: Reports: Hx Embolism - Pulmonary Embolism, Hx Hypercholesterolemia, Hx Hypertension - controlled with meds Denies: Hx Coronary Artery Disease, Hx Pacemaker/ICD Respiratory History: Reports: Hx Pulmonary Embolism - in the past Denies: Hx Asthma, Hx Chronic Obstructive Pulmonary Disease (COPD) GI History: Denies: Hx Ulcer History: Reports: Hx Chronic Renal Failure, Other Problems/Disorders - Reports kidney problems Denies: Hx Kidney Stones Musculoskeletal History: Reports: Hx Arthritis - possible RA in hands, Hx Rheumatoid Arthritis Sensory History: Reports: Hx Cataracts - right eye, Hx Contacts or Glasses - glasses for reading, Hx Macular Degeneration, Hx Vision Problem - Retinal hemorrhage Denies: Hx Deafness, Hx Hearing Aid Opthamlomology History: Reports: Hx Cataracts - right eye, Hx Contacts or Glasses - glasses for reading, Hx Macular Degeneration, Hx Vision Problem - Retinal hemorrhage Neurological History: Denies: Hx Dementia Psychiatric History: Denies: Hx Panic Disorder, Hx Schizophrenia - Surgical History Surgery Procedure, Year, and Place: left foot- Surgery for diabetic ulcer. R leg- medical machinery. right ankle Hx Anesthesia Reactions: No - Immunization History Date of Tetanus Vaccine: UTD Date of Influenza Vaccine: 2017 Hx Pertussis Vaccination: No Immunizations Up to Date: Yes Infectious Disease History: No Infectious Disease History: Denies: Hx Hepatitis, Hx Human Immunodeficiency Virus (HIV), Traveled Outside the [place] in Last 30 Days - Family History Known Family History: Positive: Cardiac Disease, Hypertension, Diabetes Family History: NO FAMILY H/O GOUT OR RA - Social History Occupation: Unemployed Lives: Alone Alcohol Use: Rare Hx Substance Use: No Substance Use Type: Reports: None Hx Tobacco Use: Yes Smoking Status (MU): Former Smoker Type: Cigarettes Amount Used/How Often: smoked on and off for 15 years less than 1/2ppd Review of Systems Constitutional: Negative Negative: Fever, Chills, Fatigue, Skin Diaphoresis Negative: Palpitations, Chest Pain Negative: Cough Negative: Arthralgia, Myalgia Positive: Other - right lateral ankle ulceration Neurological: Negative All Other Systems Reviewed And Are Negative: Yes Physical Exam Triage Information Reviewed: Yes Vital Signs On Initial Exam: Initial Vitals Temp Pulse Resp BP Pulse Ox 97 F 80 16 124/69 99 10/30/18 11:46 10/30/18 11:46 10/30/18 11:46 10/30/18 11:46 10/30/18 11:46 Vital Signs Reviewed: Yes Appearance: Positive: Well-Appearing, Well-Nourished Skin: Positive: Warm, Skin Color Reflects Adequate Perfusion, Other - right lateral ankle ulceration Head/Face: Positive: Normal Head/Face Inspection Eyes: Positive: EOMI, Conjunctiva Clear Neck: Positive: Supple, Nontender, No Lymphadenopathy Respiratory/Lung Sounds: Positive: Breath Sounds Present Cardiovascular: Positive: Pulses are Symmetrical in both Upper and Lower Extremities Musculoskeletal: Positive: Strength/ROM Intact Neurological: Positive: Speech Normal Psychiatric: Positive: Affect/Mood Appropriate Diagnostics - Vital Signs Vital Signs Temp Pulse Resp BP Pulse Ox 10/30/18 12:36 97.2 F 80 16 137/66 98 10/30/18 12:03 137/66 10/30/18 12:00 80 99 10/30/18 11:53 78 99 10/30/18 11:46 97 F 80 16 124/69 99 - Laboratory Lab Statement: Any lab studies that have been ordered have been reviewed, and results considered in the medical decision making process. Course/Dx - Course Course Of Treatment: This patient is evaluated for a chronic healing wound to the right lateral portion of the ankle. Patient states she has been concerned due to the excessive drainage since yesterday. An iodoform dressing was placed yesterday and since that time, she has been changing the bandages approximately 3-4 times throughout the day. She is concerned about the amount of fluid. On physical examination, there is a healing epithelialized tissue surrounding 1.5 healing ulcer with iodoform packing. - Differential Diagnoses - Skin Complaint Differential Diagnoses: Other - ulcer, healing wound, chronic wound - Diagnoses Provider Diagnoses: Diabetic ulcer of ankle Discharge ED - Sign-Out/Discharge Documenting (check all that apply): Patient Departure Patient Received Moderate/Deep Sedation with Procedure: No - Discharge Plan Condition: Stable Disposition: HOME Referrals: Cayla Cervantes MD [Primary Care Provider] - Additional Instructions: As discussed, change the dressing as needed - Billing Disposition and Condition Condition: STABLE Disposition: Home - Attestation Statements Provider Attestation: I was available for consultation for this patient. I did not evaluate the patient or participate in any medical decision making or disposition decisions unless I am specifically named in the chart as having consulted on the patient. If I have consulted on the patient, please see my own ED note on the patient encounter. Enmanuel Mack MD
== END 2018-10-30 12:35 | disposition home or self-care (01) ==
LOC: ED 11:27
DX: L97.519 Non-pressure chronic ulcer of other part of right foot with unspecified severity (principal); E11.621 Type 2 diabetes mellitus with foot ulcer; D64.9 Anemia, unspecified; Z87.891 Personal history of nicotine dependence; Z79.01 Long term (current) use of anticoagulants; Z86.711 Personal history of pulmonary embolism
CPT/HCPCS: 99282

== ENCOUNTER 2019-01-29 12:28 | Inpatient (IN) | payer OTHER ==
--- OUTSIDE RECORDS SUMMARY | 2019-01-29 12:43 | XMS REPORT | Continuity of Care Document ---
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 Problems Active Problems Provider Date [...] Ruben Jean-Baptiste MD Onset: 10/08/2018 neuropathic arthropathy Ulcer of foot Ruben Jean-Baptiste MD Onset: 12/24/2018 Social History Type Date Description Comments Sex Unknown ETOH Use Occasionally consumes alcohol Tobacco Use Start: Unknown End: Patient is a former quit smoking 2007 Unknown smoker Recreational Drug Use Denies Drug Use Smoking Status Reviewed: 12/30/18 Patient is a former quit smoking 2008 smoker Exercise Type/Frequency Exercises regularly walking- daily and chair yoga 3-4 times per week Allergies, Adverse Reactions, Alerts Description No Known Drug Allergies Medications Active Medications SIG Qnty Indications Ordering Date Provider Chlorthalidone once daily Unknown 10/19/2018 50mg Tablets Transfer Chair use as needed for E11.621 Ruben Jean-Baptiste, 10/08/2018 transfer assistance ht: 64" wt: 259 lbs L03.115 Ozempic Hold On File For 3ml E11.22 Atul Monroy MD 08/24/2018 1mg/Dose Solution Second Month, 1mg Pen-Inject injection once weekly Colchicine 1 by mouth daily as 30tabs Atul Monroy MD 06/03/2018 0.6mg Tablets needed for gout Labetalol HCL 1 tablet twice daily 60tabs Ruben Jean-Baptiste MD 200mg Tablets Coumadin as directed 90tabs Ruben Jean-Baptiste MD 3mg Tablets Turmeric 1 by mouth every day Unknown 500mg Capsules Iron 1 tablet 3 times Unknown 325(65Fe) mg Tablets daily Cephalexin take 1 capsule by Unknown 500mg Capsules mouth twice a day Allopurinol 1 by mouth every day Unknown 100mg Tablets History Medications Lisinopril take once daily 30tabs I10 Isabel Kilpatrick MD 10/11/2018 - 5mg 12/30/2018 Tablets Humalog Kwikpen 4-6 units with 3ml Atul [...] Available Vital Signs Date Vital Result Comment 12/30/2018 10:52am Height 64 inches 5'4" Weight 240.00 lb Heart Rate 82 /min BP Systolic Sitting 143 mmHg left arm reg cuff BP Diastolic Sitting 78 mmHg left arm reg cuff O2 % BldC Oximetry 100 % room air BMI (Body Mass Index) 41.2 kg/m2 12/24/2018 12:26pm Height 64 inches 5'4" Weight 240.00 lb Heart Rate 94 /min BP Systolic 134 mmHg BP Diastolic 72 mmHg Respiratory Rate 16 /min Body Temperature 98.0 F Pain Level 0 BMI (Body Mass Index) 41.2 kg/m2 Results Test Acquired Date Facility Test Result H/L Range Note Laboratory test 12/27/2018 [facility] Erythrocyte Sed 120 mm/Hr High 0-[address] Rate [place], [place] [address] [phone] CBC Auto Diff 12/27/2018 [facility] White Blood 11.5 High 3.5- 10.[address] Count 10^3/[place] [address] [phone] Red Blood Count 3.68 10^6/uL Low 3.70-4.87 Hemoglobin 9.4 g/dL Low 12.0-16.0 Hematocrit 30 % Low 35-47 Mean Corpuscular Volume 81 fL Normal 80-97 Mean Corpuscular Hemoglobin 26 pg Low 27-31 Mean Corpuscular HGB Conc 31 g/dL Normal 31-36 Red Cell Distribution Width 18 % High 10-15 Platelet Count 448 10^3/uL Normal 150-450 Mean Platelet Volume 7.7 fL Normal 7.4-10.4 Abs Neutrophils 9.1 10^3/uL High 1.5-7.7 Abs Lymphocytes 1.5 10^3/uL Normal 1.0-4.8 Abs Monocytes 0.7 10^3/uL Normal 0-0.8 Abs Eosinophils 0.1 10^3/uL Normal 0-0.6 Abs Basophils 0.1 10^3/uL Normal 0-0.2 Abs Nucleated RBC 0.0 10^3/uL Granulocyte % 78.7 % Lymphocyte % 13.2 % Monocyte % 6.3 % Eosinophil % 1.3 % Basophil % 0.5 % Nucleated Red Blood Cells % 0.0 Laboratory test 12/27/2018 [facility] Prealbumin 15 mg/dL Low 18-38 finding [address] [place] [address] [phone] C Reactive Protein 25.68 mg/L High <8.01 Comp Metabolic 12/27/2018 [facility] Sodium 138 mmol/L Normal 135-145 Panel [address] [place] [address] [phone] Potassium 4.1 mmol/L Normal 3.5-5.0 Chloride 102 mmol/L Normal 101-111 Co2 Carbon Dioxide 27 mmol/L Normal 22-32 Anion Gap 9 mmol/L Normal 2-11 Glucose 131 mg/dL High 70-100 Blood Urea Nitrogen 42 mg/dL High 6-24 Creatinine 2.24 mg/dL High 0.51-0.95 BUN/Creatinine Ratio 18.8 Normal 8-20 Calcium 9.6 mg/dL Normal 8.6-10.3 Total Protein 6.7 g/dL Normal 6.4-8.9 Albumin 3.0 g/dL Low 3.2-5.2 Globulin 3.7 g/dL Normal 2-4 Albumin/Globulin Ratio 0.8 Low 1-3 Total Bilirubin 0.40 mg/dL Normal 0.2-1.0 Alkaline Phosphatase 129 U/L High 34-104 Alt 6 U/L Low 7-52 Ast 10 U/L Low 13-39 Egfr Non- 22.4 >60 Egfr 27.1 >60 1 Laboratory test 12/27/2018 [facility] Creatinine Random 76.67 mg /dL finding 101 [facility] [place] [address] [phone] Total Protein Random Urine 150 mg/dL Urinalysis Profile 12/27/2018 [facility] Urine Color Yellow [address] [place] [address] [phone] Urine Appearance Clear Urine Specific [place] 1.010 Normal 1.010-1.030 Urine pH 6.0 Normal 5-9 Urine Urobilinogen Negative Negative Urine Ketones Negative Negative Urine Protein 2+(100 mg/dL) Abnormal Negative Urine Leukocytes 1+ Abnormal Negative Urine Blood Negative Negative * * Abnormal Negative 2 Urine Nitrite Negative Negative Urine Bilirubin Negative Negative Urine Glucose Negative Negative Urine White Blood Cell 2+(11-20/hpf) Abnormal Absent Urine Red Blood Cell Absent Absent Urine Bacteria Absent Absent Urine Squamous Epithelial Cell Present Abnormal Absent Urine Culture And 12/27/2018 [facility] Urine Culture SEE RESULT [address] BELOW [place], [place] [id number] [phone] Laboratory test 12/27/2018 [facility] Hemoglobin A1c 6.3 % High 4.0- [address] (Glyco HGB) 5.6 [place] [address] [phone] Laboratory test 12/27/2018 [facility] Ferritin 309.4 ng/mL High 11-[address] [place] [address] [phone] Iron & Iron 12/27/2018 [facility] Iron 34 g/dL Low 50-[address] [place] [address] [phone] Unsaturated Iron Binding < 223 g/dL Total Iron Binding Capacity 238 g/dL Low 250-450 Transferrin 170 mg/dL Low 203-362 % Iron Saturation 14 % Low 15-55 Urine Culture And 11/25/2018 [facility] Urine Culture SEE RESULT [address] [place] [address] [phone] Urinalysis Profile 11/25/2018 [facility] Urine Color Yellow [address] [place] [address] [phone] Urine Appearance Cloudy Urine Specific [place] 1.012 Normal 1.010-1.030 Urine pH 6.0 Normal 5-9 Urine Urobilinogen Negative Negative Urine Ketones Negative Negative Urine Protein 2+(100 mg/dL) Abnormal Negative Urine Leukocytes 1+ Abnormal Negative Urine Blood Negative Negative * * Abnormal Negative 6 Urine Nitrite Negative Negative Urine Bilirubin Negative Negative Urine Glucose Negative Negative Urine White Blood Cell 2+(11-20/hpf) Abnormal Absent Urine Red Blood Cell Trace(0-2/hpf) Absent Urine Bacteria Absent Absent Urine Squamous Epithelial Cell Present Abnormal Absent Neph Routine 11/25/2018 [facility] Total Protein Random 171 mg/ dL [address] [place] [address] [phone] Creatinine Random Urine 86.90 mg/dL Inr/Protime 11/25/2018 [facility] Inr 2.29 High 0.82-1.[address] [place], [place] [address] [phone] Laboratory test 11/25/2018 [facility] Ferritin 548.5 High 11- [address] ng/[place] [address] [phone] Iron & Iron 11/25/2018 [facility] Iron 25 g/dL Low 50-212 Binding Capacity [address] [place] [address] [phone] Unsaturated Iron Binding < 185 g/dL Total Iron Binding Capacity 200 g/dL Low 250-450 Transferrin 143 mg/dL Low 203-362 % Iron Saturation 13 % Low 15-55 Basic Metabolic 11/25/2018 [facility] Sodium 139 mmol/L Normal 135-145 Panel [address] [place] [address] [phone] Potassium 4.1 mmol/L Normal 3.5-5.0 Chloride 101 mmol/L Normal 101-111 Co2 Carbon Dioxide 27 mmol/L Normal 22-32 Anion Gap 11 mmol/L Normal 2-11 Glucose 133 mg/dL High 70-100 Blood Urea Nitrogen 55 mg/dL High 6-24 Creatinine 2.47 mg/dL High 0.51-0.95 BUN/Creatinine Ratio 22.3 High 8-20 Calcium 9.2 mg/dL Normal 8.6-10.3 Egfr Non- 20.0 >60 Egfr 24.2 >60 8 CBC Auto 11/25/2018 [facility] White Blood 12.7 10^3/uL High 3.5-10.8 Diff 101 [place] [address] [phone] Red Blood Count 3.50 10^6/uL Low 3.70-4.87 Hemoglobin 8.9 g/dL Low 12.0-16.0 Hematocrit 29 % Low 35-47 Mean Corpuscular Volume 83 fL Normal 80-97 Mean Corpuscular Hemoglobin 25 pg Low 27-31 Mean Corpuscular HGB Conc 31 g/dL Normal 31-36 Red Cell Distribution Width 17 % High 10-15 Platelet Count 466 10^3/uL High 150-450 Mean Platelet Volume 7.8 fL Normal 7.4-10.4 Abs Neutrophils 10.5 10^3/uL High 1.5-7.7 Abs Lymphocytes 1.4 10^3/uL Normal 1.0-4.8 Abs Monocytes 0.6 10^3/uL Normal 0-0.8 Abs Eosinophils 0.2 10^3/uL Normal 0-0.6 Abs Basophils 0.1 10^3/uL Normal 0-0.2 Abs Nucleated RBC 0.0 10^3/uL Granulocyte % 82.7 % Lymphocyte % 10.8 % Monocyte % 4.8 % Eosinophil % 1.3 % Basophil % 0.4 % Nucleated Red Blood Cells % 0.1 Protein 11/25/2018 [facility] Total 6.9 g/dL 6.3 - Electrophoresis [address] Protein(Pep) 7.9 [place], [place] [id number] [phone] Albumin 2.4 g/dL Abnormal 3.4-4.7 Alpha-1 Globulin 0.5 g/dL Abnormal 0.1-0.3 Alpha-2 Globulin 1.4 g/dL Abnormal 0.6-1.0 Beta Globulin 1.3 g/dL Abnormal 0.7-1.2 Gamma Globulin 1.4 g/dL 0.6-1.6 Albumin/Globulin Ratio 0.53 Impression See Comment 9 [place]/Lambda Free 11/25/2018 [facility] [place] Free 22.0 mg/dL Abnormal [address] [place] [address] [phone] Lambda Free Light Chain 11.7 mg/dL Abnormal 11 [place]/Lambda Free Light Chain 1.88 Abnormal 12 Inr/Protime 11/09/2018 [facility] Inr 2.00 High 0.82-1.[address] [place] [address] [phone] Inr/Protime 10/29/2018 [facility] Inr 2.55 High 0.82-1.[address] [place], [place] [address] [phone] Wound 10/29/2018 [facility] Wound/Misc SEE 15 Culture/Sens[address] DRIVE [place] [address] Stain BELOW [phone] Laboratory 10/29/2018 [facility] Erythrocyte > 120 High 0-[address] Sed Rate mm/[place] [address] [phone] CBC Auto Diff 10/29/2018 [facility] White Blood 8.6 Normal 3.5 -10.[address] Count 10^3/[place] [address] [phone] Red Blood Count 3.75 10^6/uL Normal 3.70-4.87 Hemoglobin 10.1 g/dL Low 12.0-16.0 Hematocrit 31 % Low 35-47 Mean Corpuscular Volume 84 fL Normal 80-97 Mean Corpuscular Hemoglobin 27 pg Normal 27-31 Mean Corpuscular HGB Conc 32 g/dL Normal 31-36 Red Cell Distribution Width 18 % High 10-15 Platelet Count 366 10^3/uL Normal 150-450 Mean Platelet Volume 8.0 fL Normal 7.4-10.4 Abs Neutrophils 6.4 10^3/uL Normal 1.5-7.7 Abs Lymphocytes 1.4 10^3/uL Normal 1.0-4.8 Abs Monocytes 0.5 10^3/uL Normal 0-0.8 Abs Eosinophils 0.2 10^3/uL Normal 0-0.6 Abs Basophils 0.0 10^3/uL Normal 0-0.2 Abs Nucleated RBC 0.0 10^3/uL Granulocyte % 74.6 % Lymphocyte % 16.8 % Monocyte % 6.0 % Eosinophil % 2.2 % Basophil % 0.4 % Nucleated Red Blood Cells % 0.1 Laboratory test 10/29/2018 [facility] Uric Acid 9.5 mg/dL High 2.3-6.[address] [place] [address] [phone] Prealbumin 21 mg/dL Normal 18-38 C Reactive Protein 30.27 mg/L High <8.01 Vitamin B12 379 pg/mL Normal 180-914 16 Protime W/ Inr 10/21/2018 [facility] Inr 1.96 High 0.82-1.[address] [place] [address] [phone] Protime W/ Inr 10/13/2018 [facility] Inr 2.47 High 0.82-1.[address] [place] [address] [phone] Urine 10/12/2018 [facility] Urine 70.93 Microalbumin Creatinine mg/[place] [address] [phone] Ur Microalbumin (mg/L) 2109.4 mg/L Urine Microalbumin/Creatinine 2973.9 High <31 Comp Metabolic 10/12/2018 [facility] Sodium 141 mmol/L Normal 135-[address] [place] [address] [phone] Potassium 4.2 mmol/L Normal 3.5-5.0 Chloride 106 [...] Egfr Non- 19.3 >60 Egfr 23.3 >60 19 1 Because ethnic data is not always readily [...] 15-29 5 Kidney failure <15 (or dialysis) 2 *Ascorbic acid is present which may interfere with detection of blood. 3 SEE RESULT BELOW Name: ESTEFANÍA JON : [address]: Radha Staff,Doctor Acct: [id number] Unit: [id number] AGE: 58 Location: LAB Re12/27/18 SEX: F Status: REG REF SPEC: [id number] REY: 12/27/18-[address]: Juan F Hurd MD REQ: [id number] RECD: 12/27/18 STATUS:COMP _ SOURCE: URINE SPDESC: ORDERED: Urine Culture Procedure Result Reported Site Urine Culture Final 12/29/18- 0854 ML No growth of clinically significant organisms * ML - Main Lab . END OF REPORT DEPARTMENT OF PATHOLOGY, [address] [place] [address] Rylan Mcleod M.D. Director [facility] # [id number] 4 Therapeutic target for the treatment of diabetes mellitus patients is <7% HBA1C, and in selective patients <6.0%. Please refer to [place] Diabetes Association diabetic care guidelines for further information. 5 SEE RESULT BELOW Name: GEMMA JON : [address]: Cayla Cervantes MD Acct: [id number] Unit: [id number] AGE: 58 Location: LAB Re11/25/18 SEX: F Status: REG REF SPEC: [id number] REY: 11/25/[address]: Juan F Hurd MD REQ: [id number] RECD: 11/25/18 STATUS: COMP _ SOURCE: URINE SPDESC: ORDERED: Urine Culture Procedure Result Reported Site Urine Culture Final 11/26/18- 1212 ML No growth of clinically significant organisms * ML - Main Lab . END OF REPORT DEPARTMENT OF PATHOLOGY, [address] [place] [address] Rylan Mcleod M.D. Director [facility] # [id number] 6 *Ascorbic acid is present which may interfere with detection of blood. 7 Standard intensity warfarin therapeutic range: 2.0-3.0 High intensity warfarin therapeutic range: 2.5-3.5 8 Because ethnic data is not always readily [...] 15-29 5 Kidney failure <15 (or dialysis) 9 RESULT: No apparent monoclonal protein on serum electrophoresis. Test Performed by: [facility] [address] [place] [address] Crab Picker: Steve Mcallister M.D. Ph.D.; CLIA# [id number] 10 REFERENCE VALUE 0.3300-1.94 11 REFERENCE VALUE 0.5700-2.63 12 Elevated free light chain ratios between 1.66 and 3.00 may occur due to polyclonal hypergammaglobulinemia or impaired renal clearance. An isolated increased free light chain ratio in this range should be interpreted with caution, and clinical correlation is recommended. REFERENCE VALUE 0.2600-1.65 Test Performed by: [facility] [address] [place] [address] Crab Picker: Steve Mcallister M.D. Ph.D.; IA# [id number] 13 Standard intensity warfarin therapeutic range: 2.0-3.0 High intensity warfarin therapeutic range: 2.5-3.5 14 Standard intensity warfarin therapeutic range: 2.0-3.0 High intensity warfarin therapeutic range: 2.5-3.5 15 SEE RESULT BELOW Name: GEMMA JON : [address]: Camille Mccormick NP Acct: [id number] Unit: [id number] AGE: 58 Location: WOUND Re10/29/18 SEX: F Status: REG REF SPEC: [id number] REY: 10/29/18-[address]: Camille Mccormick NP REQ: [id number] RECD: 10/29/18 STATUS: [facility] DR: Cayla Cervantes MD _ SOURCE: WOUND SPDESC: ORDERED: Culture Stain COMMENTS: RIGHT ANKLE Procedure Result Reported Site Wound/Misc Gram Stain Final 10/29/18- 1722 ML 3+ Neutrophils No Organisms Seen Wound/Misc Culture Final 10/31/18- 0854 ML Organism 1 NORMAL MAYI Quantity 1+ * ML - Main Lab . END OF REPORT DEPARTMENT OF PATHOLOGY, [address] [place] [address] Rylan Mcleod M.D. Director [facility] # [id number] 16 Normal Range 180 to 914 Indeterminate Range 145 to 180 Deficient Range <145 17 Standard intensity warfarin therapeutic range: 2.0-3.0 High intensity warfarin therapeutic range: 2.5-3.5 18 Standard intensity warfarin therapeutic range: 2.0-3.0 High intensity warfarin therapeutic range: 2.5-3.5 19 Because ethnic data is not always readily [...] (or dialysis) Procedures Date Code Description Status 12/24/2018 55143 Negative Pressure Wound Therapy Less Than 50 Square CM Completed 12/15/2018 89233 Negative Pressure Wound Therapy Less Than 50 Square CM Completed 12/08/2018 74172 Negative Pressure Wound Therapy Less Than 50 Square CM Completed 12/01/2018 28160 Negative Pressure Wound Therapy Less Than 50 Square CM Completed 11/17/2018 64809 Negative Pressure Wound Therapy Less Than 50 Square CM Completed 11/15/2018 89829 Negative Pressure Wound Therapy Less Than 50 Square CM Completed 11/09/2018 24440 Negative Pressure Wound Therapy Less Than 50 Square CM Completed 10/29/2018 24967 Removal Devitalization Tissue Wound Less Than Equal 20 Completed Square CM 09/29/2018 36733 Inject/Drain Joint/Bursa Major W/O US Completed 09/23/2018 44373 Negative Pressure Wound Therapy Less Than 50 Square CM Completed 09/23/2018 13163 Treadmill Interp/Report Only Completed 09/23/2018 92543 Stress Test Supervsn W/Out I/R Completed 09/23/2018 27264 Partial Excision, Bone;Fibula Completed 09/23/2018 87688 Partial Excision, Bone;Fibula Completed 07/30/2017 592672330 Diabetic Foot Exam Completed Medical Devices Description No Information Available Encounters Type Date Location Provider Dx Diagnosis Office Visit 10/27/2018 [facility]ph[facility] Juan F Hurd, N18.4 Chronic kidney 9:00a MD disease, stage 4 (severe) I12.9 Hypertensive chronic kidney disease w stg 1-4/unsp chr kdny E11.22 Type 2 diabetes mellitus w diabetic chronic kidney disease Z68.41 Body mass index (BMI) 40.0-44.9, adult E11.621 Type 2 diabetes mellitus with foot ulcer I10 Essential (primary) hypertension D64.9 Anemia, unspecified L03.115 Cellulitis of right lower limb Z79.4 USP (current) use of insulin Office Visit 10/22/2018 9:40a [facility], L97.419 Non-prs chr [facility] MD ulcer of right heel and midfoot w unsp severt E11.621 Type 2 diabetes mellitus with foot ulcer E11.21 Type 2 diabetes mellitus with diabetic nephropathy I10 Essential (primary) hypertension 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 Thanh Weaver03.115 Cellulitis of arlet Heard M.D. 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 Thanh L03.115 Cellulitis of arlet Heard M.D. 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 Thanh L03.115 Cellulitis of arlet Heard M.D. 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 Thanh L03.115 Cellulitis of arlet Heard M.D. 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 Thanh L03.115 Cellulitis of arlet Heard M.D. 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 Thanh L03.115 [facility] 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 D64.9 Anemia, unspecified R79.1 Abnormal coagulation profile R74.8 Abnormal levels of other serum enzymes N17.9 Acute kidney failure, unspecified I10 Essential (primary) hypertension I26.99 Other pulmonary embolism without acute cor pulmonale Office Visit 09/26/2018 [facility] E11.610 Type 2 diabetes 9:10a Assoc,arlet Andersen DO mellitus w Hospitalists diabetic neuropathic arthropathy L03.115 Cellulitis of right lower limb N17.9 Acute kidney failure, unspecified R74.8 Abnormal levels of other serum enzymes D64.9 Anemia, unspecified D68.59 Other primary thrombophilia I10 Essential (primary) hypertension Office Visit 09/25/2018 [facility] E11.610 Type 2 diabetes 9:07a Assoc,arlet Andersen DO mellitus w Hospitalists diabetic neuropathic arthropathy L03.115 Cellulitis of right lower limb R74.8 Abnormal levels of other serum enzymes N17.9 Acute kidney failure, unspecified I10 Essential (primary) hypertension I26.99 Other pulmonary embolism without acute cor pulmonale R79.1 Abnormal coagulation profile Office Visit 09/24/2018 9:06a [facility] M14.671 [facility],arlet Andersen DO joint, right Hospitalists ankle and foot L03.115 Cellulitis of right lower limb R74.8 Abnormal levels of other serum enzymes N17.9 Acute kidney failure, unspecified I10 Essential (primary) hypertension I26.99 Other pulmonary embolism without acute cor pulmonale R79.1 Abnormal coagulation profile Office Visit 09/24/2018 8:45a [facility] Kelechi Thomas L03.115 Cellulitis of Stefani Tapia M.D. 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 [place] E11.610 Type 2 diabetes 9:06a arlet Heard, DO mellitus w Hospitalists diabetic neuropathic arthropathy L03.115 Cellulitis of right lower limb R74.8 Abnormal levels of other serum enzymes N17.9 Acute kidney failure, unspecified I10 Essential (primary) hypertension I26.99 Other pulmonary embolism without acute cor pulmonale R79.1 Abnormal coagulation profile Office Visit 09/22/2018 11:12a [facility] Kelechi Thomas L03.115 Cellulitis of For Fei Tapia M.D. 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 Lidia E78.5 Hyperlipidemia, 9:05a arlet Heard M.D. 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 I12.9 Hypertensive chronic kidney disease w stg 1-4/unsp chr kdny E11.22 Type 2 diabetes mellitus w diabetic chronic kidney disease N18.9 Chronic kidney disease, unspecified Office Visit 09/21/2018 8:30a [facility] Vickie Galindo E11.622 Type 2 diabetes Center [facility] Tubbs, CHEF MANAGER mellitus with other skin ulcer L97.519 Non-prs chronic ulcer oth prt right foot w unsp severity 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 Office Visit 09/21/2018 7:53a [facility] Sweta L03.115 Cellulitis of at [facility] OR right lower limb 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 L97.519 Non-prs chronic ulcer oth prt right foot w unsp severity E11.621 Type 2 diabetes mellitus with foot ulcer Office Visit 08/24/2018 9:00a [facility] Poll[facility] Coch, E11.22 Type 2 diabetes [facility] MD mellitus w diabetic chronic kidney disease N18.4 Chronic kidney disease, stage 4 (severe) 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 E78.5 Hyperlipidemia, unspecified I10 Essential (primary) hypertension Office Visit 07/20/2018 8:30a [facility] Thanh M14.672 Charcot' s at Alfredo Wood M.D. joint, left ankle and foot Assessments Date Code Description Provider 12/30/2018 I10 Essential (primary) hypertension Juan F Hurd MD 12/30/2018 I12.9 Hypertensive chronic kidney disease Juan F Hurd MD with stage 1 through stage 4 chronic kidney disease, or unspecified chronic kidney disease 12/30/2018 N18.4 Chronic kidney disease, stage 4 Juan F Hurd MD (severe) 12/30/2018 E78.5 Hyperlipidemia, unspecified Juan F Hurd MD 12/30/2018 E11.22 Type 2 diabetes mellitus with Juan F Hurd MD diabetic chronic kidney disease 12/30/2018 D64.9 Anemia, unspecified Juan F Hurd MD 12/24/2018 L97.529 Non-pressure chronic ulcer of other Ruben Jean-Baptiste MD part of left foot with unspecified severity 12/24/2018 E11.621 Type 2 diabetes mellitus with foot Ruben Jean-Baptiste MD ulcer 12/24/2018 E11.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 with Ruben Jea-nBaptiste MD diabetic neuropathic arthropathy 12/15/2018 L97.529 Non-pressure chronic ulcer of other Ruben Jean-Baptiste MD part of left foot with unspecified severity 12/08/2018 L97.529 Non-pressure chronic ulcer of other Ruben Jean-Baptiste MD part of left foot with unspecified severity 12/01/2018 L97.529 Non-pressure chronic ulcer of other Ruben Jean-Baptiste MD part of left foot with unspecified severity 11/25/2018 I12.9 Hypertensive chronic kidney disease Juan F Hurd MD with stage 1 through stage 4 chronic kidney disease, or unspecified chronic kidney disease 11/25/2018 N18.4 Chronic kidney disease, stage 4 Juan F Hurd MD (severe) 11/25/2018 E11.22 Type 2 diabetes mellitus with Juan F Hurd MD diabetic chronic kidney disease 11/25/2018 D64.9 Anemia, unspecified Juan F Hurd MD 11/17/2018 E11.621 Type 2 diabetes mellitus with foot Ruben Jean-Baptiste MD ulcer 11/17/2018 L97.529 Non-pressure chronic ulcer of other Ruben Jean-Baptiste MD part of left foot with unspecified severity 11/15/2018 E11.621 Type 2 diabetes mellitus with foot Ruben Jean-Baptiste MD ulcer 11/15/2018 L97.529 Non-pressure chronic ulcer of other Ruben Jean-Baptiste MD part of left foot with unspecified severity 11/09/2018 L97.529 Non-pressure chronic ulcer of other Ruben Jean-Baptiste MD part of left foot with unspecified severity 11/09/2018 E11.621 Type 2 diabetes mellitus with foot Ruben Jean-Baptiste MD ulcer 11/05/2018 E11.621 Type 2 diabetes mellitus with foot Ruben Jean-Baptiste MD ulcer 11/05/2018 Z98.890 Other specified postprocedural Ruben Jean-Baptiste MD states 11/01/2018 L97.519 Non-pressure chronic ulcer of other Ruben Jean-Baptiste MD part of right foot with unspecified severity 11/01/2018 E11.621 Type 2 diabetes mellitus with foot Ruben Jean-Baptiste MD ulcer 11/01/2018 Z98.890 Other specified postprocedural Ruben Jean-Baptiste MD states 10/29/2018 L97.319 Non-pressure chronic ulcer of right Camille Mccormick DNP , RN, ankle with unspecified severity [facility]- 10/29/2018 E11.622 Type 2 diabetes mellitus with other Camille Mccormick DNP , RN, skin ulcer [facility]- 10/29/2018 E11.42 Type 2 diabetes mellitus with Camille Mccormick DNP, RN, diabetic polyneuropathy [facility]- 10/29/2018 M10.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, right ankle and Camille Mccormick DNP, RN , foot 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 10/27/2018 N18.4 Chronic kidney disease, stage 4 Juan F Hurd MD (severe) 10/27/2018 I12.9 Hypertensive chronic kidney disease Juan F Hurd MD with stage 1 through stage 4 chronic kidney disease, or unspecified chronic kidney disease 10/27/2018 E11.22 Type 2 diabetes mellitus with Juan F Hurd MD diabetic chronic kidney disease 10/27/2018 Z68.41 Body mass index (BMI) 40.0-44.9, Juan F Hurd MD adult 10/27/2018 E11.621 Type 2 diabetes mellitus with foot Juan F Hurd MD ulcer 10/27/2018 I10 Essential (primary) hypertension Juan F Hurd MD 10/27/2018 D64.9 Anemia, unspecified Juan F Hurd MD 10/27/2018 L03.115 Cellulitis of right lower limb Juan F Hurd MD 10/27/2018 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 Juan F Hurd MD 10/22/2018 E11.621 Type 2 diabetes mellitus with foot Ruben Jean-Baptiste MD ulcer 10/22/2018 Z47.89 Encounter for other orthopedic Ruben Jean-Baptiste MD aftercare 10/22/2018 L97.419 Non-pressure chronic ulcer of right Atul Monroy MD heel and midfoot with unspecified severity 10/22/2018 E11.621 Type 2 diabetes mellitus with foot Atul Monroy MD ulcer 10/22/2018 E11.21 Type 2 diabetes mellitus with Atul Monroy MD diabetic nephropathy 10/22/2018 I10 Essential (primary) hypertension Atul Monroy MD 10/22/2018 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 Atul Monroy MD 10/22/2018 N18.3 Chronic kidney disease, stage 3 Atul Monroy MD (moderate) 10/15/2018 L03.115 Cellulitis of right lower limb Ruben Jean-Baptiste MD 10/15/2018 L97.319 Non-pressure chronic ulcer of right Ruben Jean-Baptiste MD ankle with unspecified severity 10/15/2018 Z47.89 Encounter for other orthopedic Ruben Jean-Baptiste MD aftercare 10/11/2018 I26.99 Other pulmonary embolism without Cayla Cervantes MD acute cor pulmonale 10/11/2018 E11.621 Type 2 diabetes mellitus with foot Cayla Cervantes MD ulcer 10/11/2018 I10 Essential (primary) hypertension Cayla Cervantes MD 10/11/2018 I26.99 Other pulmonary embolism without Cayla Cervantes MD acute cor pulmonale 10/11/2018 E11.621 Type 2 diabetes mellitus with foot Cayla Cervantes MD ulcer 10/08/2018 E11.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 with Ruben Jean-Baptiste MD diabetic neuropathic arthropathy 10/08/2018 E11.621 Type 2 diabetes mellitus with foot Ruben Jean-Baptiste MD ulcer 10/08/2018 Z98.890 Other specified postprocedural Ruben Jean-Baptiste MD states 10/04/2018 L03.115 Cellulitis of right lower limb Kelechi Tapia M.D. 10/04/2018 L97.319 Non-pressure chronic ulcer of right Kelechi Tapia M.D. ankle with unspecified severity 10/04/2018 E11.622 Type 2 diabetes mellitus with other Kelechi Tapia M.D. skin ulcer 10/03/2018 L03.115 Cellulitis of right lower limb Thanh Cadena M.D. 10/03/2018 M25.562 Pain in left knee Thanh Cadena M.D. 10/03/2018 Z47.89 Encounter for other orthopedic DANIELE Quezada aftercare 10/03/2018 D64.9 Anemia, unspecified Thanh Cadena M.D. [...] 2 diabetes mellitus with other Vickie Tubbs, CHEF MANAGER skin ulcer 09/29/2018 M25.462 Effusion, left knee NIKIA Ortiz 09/29/2018 L03.115 Cellulitis of right lower limb Thanh Cadena M.D. 09/29/2018 L97.319 Non-pressure chronic ulcer of right Vickie Tubbs, CHEF MANAGER ankle with unspecified severity 09/29/2018 E11.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 with Thanh Cadena M.D. diabetic neuropathic arthropathy 09/29/2018 L03.115 Cellulitis of right lower limb Vickie Tubbs, CHEF MANAGER 09/29/2018 D64.9 Anemia, unspecified Thanh Cadena M.D. 09/29/2018 E11.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 with Vickie Tubbs, CHEF MANAGER diabetic neuropathic arthropathy 09/29/2018 R79.1 Abnormal coagulation profile Thanh Cadena M.D. 09/29/2018 D72.829 Elevated white blood cell count, Vickie Tubbs , CHEF MANAGER unspecified 09/29/2018 R74.8 Abnormal levels of other [...] unspecified severity 09/24/2018 Z98.890 Other specified postprocedural Lucita Sheldon RPA-C states 09/24/2018 E11.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 [...] preprocedural Gene Conley MD, FACC, cardiovascular examination [facility] 09/23/2018 E11.9 Type 2 diabetes mellitus without Gene Conley MD, FACC , complications [facility] 09/23/2018 E11.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 with [...] 2 diabetes mellitus with foot Samuel Levin RPA-C ulcer 09/23/2018 R79.1 Abnormal coagulation profile Mayelin Senner, DO 09/23/2018 E11.621 Type 2 diabetes mellitus [...] Wood M.D. foot Plan of Treatment Future Appointment(s):01/31/2019 10:30 am - Juan F Hurd MD at [facility] Egnqwlrbuu50/15/2019 9:00 am - Ruben Jean-Baptiste MD at [facility] at Szzmko4801/27/2019 8:40 am - Atul Monroy MD at [facility]12/30/2018 - Juan F Hurd MDI10 Essential (primary) [id number] Hypertensive chronic kidney disease with stage 1 through stage 4 chronic kidney disease, or unspecified chronic kidney yrhgpjyJ06.4 Chronic kidney disease, stage 4 (severe)Follow up:fu in 1 jrtzsC70.5 Hyperlipidemia, dnedcpcrfuiS56.22 Type 2 diabetes mellitus with diabetic chronic kidney zsfarxkS92.9 Anemia, unspecified Functional Status Description No Information Available Mental Status Description No Information Available Referrals Refer to Dr Reason for Referral Status Appt Date Wound Clinic R heel ulcer Created [address] [place] [address] [phone] Patient's Choice chronic right ankle wound Sent [phone] Wound care center in [place] referral for right foot wound Sent [facility] Right custom diabetic shoe with Closed rocker bottom [address] [facility] [address] [place], [place] [id number] [phone] Onofre Denson MD diabetic foot disease Created [address] [place] [address] [phone] Wound Clinic R heel ulcer Sent 10/29/2018 [address] [place] [address] [phone] Matilda Caballero MD CKD-5, diabetes. Patient Notified 10/27/[address] [facility] [id number] [phone]
--- OUTSIDE RECORDS SUMMARY | 2019-01-29 12:43 | XMS REPORT | Continuity of Care Document ---
:1960 External Reference #:[id number] Author Name Ruben Jean-Baptiste MD (transmitted by agent of provider Laurence Hood) Address [address] [place] [address] Care Team Providers Name Role Phone Deborah Pastor MD - Care Team Information [employer]inder Family Medicine Problems Active Problems Provider Date [...] Use Denies Drug Use Smoking Status Reviewed: 12/15/18 Patient is a former quit smoking 2008 smoker Exercise Type/Frequency Exercises regularly walking- daily and chair yoga 3-4 times per week Allergies, Adverse Reactions, Alerts Description No Known Drug Allergies Medications Active Medications SIG Qnty Indications Ordering Date Provider Chlorthalidone once daily Unknown 10/19/2018 50mg Tablets Lisinopril take once daily 30tabs I10 Isabel Kilpatrick MD 10/11/2018 5mg Tablets Transfer Chair use as needed for E11.621 Ruben Jean-Baptiste 10/08/2018 transfer assistance ht: 64" wt: 259 lbs L03.115 Ozempic Hold On File For 3ml E11.22 Atul Monroy MD 08/24/2018 1mg/Dose Solution Second Month, 1mg Pen-Inject injection once weekly Colchicine 1 by mouth daily as 30tabs Atul Monroy MD 06/03/2018 0.6mg Tablets needed for gout Labetalol HCL 1 tablet twice daily 60tabs Ruben Jean-Baptiste MD 200mg Tablets Sodium Bicarbonate 1 tablet 4 times Unknown 650mg daily Tablets Coumadin as directed 90tabs Ruben Jean-Baptiste MD 3mg Tablets Turmeric 1 by mouth every day Unknown 500mg Capsules Iron 1 tablet 3 times Unknown 325(65Fe) mg Tablets daily Cephalexin take 1 capsule by Unknown 500mg Capsules mouth twice a day Allopurinol 1 by mouth every day Unknown 100mg Tablets History Medications Humalog Kwikpen 4-6 units with [...] Available Vital Signs Date Vital Result Comment 12/24/2018 12:26pm Height 64 inches 5'4" Weight 240.00 lb Heart Rate 94 /min BP Systolic 134 mmHg BP Diastolic 72 mmHg Respiratory Rate 16 /min Body Temperature 98.0 F Pain Level 0 BMI (Body Mass Index) 41.2 kg/m2 12/15/2018 1:44pm Height 64 inches 5'4" Weight 240.00 lb Heart Rate 96 /min BP Systolic 140 mmHg BP Diastolic 80 mmHg Respiratory Rate 16 /min Body Temperature 97.7 F Pain Level 0 BMI (Body Mass Index) 41.2 kg/m2 Results Test Acquired Date Facility Test Result H/L Range Note Urine Culture And 11/25/2018 [facility] Urine SEE RESULT [address] [place] [address] [phone] Urinalysis Profile 11/25/2018 [facility] Urine Color Yellow [address] [place] [address] [phone] Urine Appearance Cloudy Urine Specific Mars[place] 1.012 Normal 1.010-1.030 Urine pH 6.0 Normal [...] Cell Present Abnormal Absent Neph Routine 11/25/2018 [facility] Total Protein Random 171 mg/ dL [address] [place] [address] [phone] Creatinine Random Urine 86.90 mg/dL Inr/Protime 11/25/2018 [facility] Inr 2.29 High 0.82-1.09 3 [address] [place] [address] [phone] Laboratory test 11/25/2018 [facility] Ferritin 548.5 High 11- 307 finding [address] [facility] ng/[place] [address] [phone] Iron & Iron 11/25/2018 [facility] Iron 25 g/dL Low 50-212 Binding Capacity [address] [place] [address] [phone] Unsaturated Iron Binding < 185 g/dL Total Iron Binding Capacity 200 g/dL Low 250-450 Transferrin 143 mg/dL Low 203-362 % Iron Saturation 13 % Low 15-55 Basic Metabolic 11/25/2018 [facility] Sodium 139 mmol/L Normal 135-[address] [place] [address] [phone] Potassium 4.1 mmol/L Normal 3.5-5.0 Chloride 101 mmol/L Normal 101-111 Co2 Carbon Dioxide 27 mmol/L Normal 22-32 Anion Gap 11 mmol/L Normal 2-11 Glucose 133 mg/dL High 70-100 Blood Urea Nitrogen 55 mg/dL High 6-24 Creatinine 2.47 mg/dL High 0.51-0.95 BUN/Creatinine Ratio 22.3 High 8-20 Calcium 9.2 mg/dL Normal 8.6-10.3 Egfr Non- 20.0 >60 Egfr 24.2 >60 4 CBC Auto 11/25/2018 [facility] White Blood 12.7 10^3/uL High 3.5-10.[address] [place] [address] [phone] Red Blood Count 3.50 10^6/uL Low 3.70-4.87 [...] Red Blood Cells % 0.1 Protein 11/25/2018 [facility] Total 6.9 g/dL 6.3 - Electrophoresis [address] Protein(Pep) 7.9 [place] [address] [phone] Albumin 2.4 g/dL Abnormal 3.4-4.7 Alpha-1 Globulin 0.5 g/dL Abnormal 0.1-0.3 Alpha-2 Globulin 1.4 g/dL Abnormal 0.6-1.0 Beta Globulin 1.3 g/dL Abnormal 0.7-1.2 Gamma Globulin 1.4 g/dL 0.6-1.6 Albumin/Globulin Ratio 0.53 Impression See Comment 5 [place]/Lambda Free 11/25/2018 [facility] [place] Free 22.0 mg/dL Abnormal [address] [place] [address] [phone] Lambda Free Light Chain 11.7 mg/dL Abnormal 7 [place]/Lambda Free Light Chain 1.88 Abnormal 8 Inr/Protime 11/09/2018 [facility] Inr 2.00 High 0.82-1.[address] [place], [place] [id number] [phone] Inr/Protime 10/29/2018 [facility] Inr 2.55 High 0.82-1.[address] [place], [place] [address] [phone] Wound 10/29/2018 [facility] Wound/Misc SEE 11 Culture/[address] [address] Stain BELOW [phone] Laboratory 10/29/2018 [facility] Erythrocyte > 120 High 0-[address] Sed Rate mm/Hr [place], [place] [address] [phone] CBC Auto Diff 10/29/2018 [facility] White Blood 8.6 Normal 3.5 -10.8 DRIVE Count 10^3/uL [place], [place] [address] [phone] Red Blood Count 3.75 10^6/uL Normal 3.70-4.87 [...] Blood Cells % 0.1 Laboratory test 10/29/2018 [facility] Uric Acid 9.5 mg/dL High 2.3-6.[address] [place] [address] [phone] Prealbumin 21 mg/dL Normal 18-38 C Reactive Protein 30.27 mg/L High <8.01 Vitamin B12 379 pg/mL Normal 180-914 12 Protime W/ Inr 10/21/2018 [facility] Inr 1.96 High 0.82-1.[address] [place] [address] [phone] Protime W/ Inr 10/13/2018 [facility] Inr 2.47 High 0.82-1.[address] [place] [address] [phone] Urine 10/12/2018 [facility] Urine 70.93 Microalbumin 101 Creatinine mg/[place] [address] [phone] Ur Microalbumin (mg/L) 2109.4 mg/L Urine Microalbumin/Creatinine 2973.9 High <31 Comp Metabolic 10/12/2018 [facility] Sodium 141 mmol/L Normal 135-[address] [place] [address] [phone] Potassium 4.2 mmol/L Normal 3.5-5.0 Chloride 106 [...] Egfr Non- 19.3 >60 Egfr 23.3 >60 15 1 SEE RESULT BELOW Name: GEMMA JON : [address]: Cayla Cervantes MD Acct: [id number] Unit: [id number] AGE: 58 Location: LAB Re11/25/18 SEX: F Status: REG REF SPEC: [id number] REY: 11/25/[address]: Juan F Hurd MD REQ: [id number] RECD: 11/25/18 STATUS: COMP _ SOURCE: URINE SPDESC: ORDERED: Urine Culture Procedure Result Reported Site Urine Culture Final 11/26/18- 1212 ML No growth of clinically significant organisms * ML - Main Lab . END OF REPORT DEPARTMENT OF PATHOLOGY, [address] [place] [address] Rylan Mcleod M.D. Director [facility] # [id number] 2 *Ascorbic acid is present which may interfere with detection of blood. 3 Standard intensity warfarin therapeutic range: 2.0-3.0 High intensity warfarin therapeutic range: 2.5-3.5 4 Because ethnic data is not always readily [...] 15-29 5 Kidney failure <15 (or dialysis) 5 RESULT: No apparent monoclonal protein on serum electrophoresis. Test Performed by: [place] [address] Door Liner: Steve Mcallister M.D. Ph.D.; CLIA# [id number] 6 REFERENCE VALUE 0.3300-1.94 7 REFERENCE VALUE 0.5700-2.63 8 Elevated free light chain ratios between 1.66 and 3.00 may occur due to polyclonal hypergammaglobulinemia or impaired renal clearance. An isolated increased free light chain ratio in this range should be interpreted with caution, and clinical correlation is recommended. REFERENCE VALUE 0.2600-1.65 Test Performed by: [place] [address] Door Liner: Steve Mcallister M.D. Ph.D.; CLIA# [id number] 9 Standard intensity warfarin therapeutic range: 2.0-3.0 High intensity warfarin therapeutic range: 2.5-3.5 10 Standard intensity warfarin therapeutic range: 2.0-3.0 High intensity warfarin therapeutic range: 2.5-3.5 11 SEE RESULT BELOW Name: GEMMA JON : [address]: Camille Mccormick FRONT END WHEEL LOADER OPERATOR Acct: [id number] Unit: [id number] AGE: 58 Location: WOUND Re10/29/18 SEX: F Status: REG REF SPEC: [id number] REY: 10/29/18-[address]: Camille Mccormick NP REQ: [id number] RECD: 10/29/18 STATUS: NANDA BISWAS DR: Cayla Cervantes MD _ SOURCE: WOUND SPDESC: ORDERED: Culture Stain COMMENTS: RIGHT ANKLE Procedure Result Reported Site Wound/Misc Gram Stain Final 10/29/18- 1722 ML 3+ Neutrophils No Organisms Seen Wound/Misc Culture Final 10/31/18- 853 ML Organism 1 NORMAL MAYI Quantity 1+ * ML - Main Lab . END OF REPORT DEPARTMENT OF PATHOLOGY, [address] [place] [address] Rylan Mcleod M.D. Director [facility] # [id number] 12 Normal Range 180 to 914 Indeterminate Range 145 to 180 Deficient Range <145 13 Standard intensity warfarin therapeutic range: 2.0-3.0 High intensity warfarin therapeutic range: 2.5-3.5 14 Standard intensity warfarin therapeutic range: 2.0-3.0 High intensity warfarin therapeutic range: 2.5-3.5 15 Because ethnic data is not always readily [...] dialysis) Procedures Date Code Description Status 12/24/2018 94304 Negative Pressure Wound Therapy Less Than 50 Square CM Completed 12/15/2018 38851 Negative Pressure Wound Therapy Less Than 50 Square CM Completed 12/08/2018 37007 Negative Pressure Wound Therapy Less Than 50 Square CM Completed 12/01/2018 96055 Negative Pressure Wound Therapy Less Than 50 Square CM Completed 11/17/2018 41551 Negative Pressure Wound Therapy Less Than 50 Square CM Completed 11/15/2018 44449 Negative Pressure Wound Therapy Less Than 50 Square CM Completed 11/09/2018 24500 Negative Pressure Wound Therapy Less Than 50 Square CM Completed 10/29/2018 60076 Removal Devitalization Tissue Wound Less Than Equal 20 Completed Square CM 09/29/2018 20916 Inject/Drain Joint/Bursa Major W/O US Completed 09/23/2018 10639 Negative Pressure Wound Therapy Less Than 50 Square CM Completed 09/23/2018 75300 Treadmill Interp/Report Only Completed 09/23/2018 22949 Stress Test Supervsn W/Out I/R Completed 09/23/2018 87552 Partial Excision, Bone;Fibula Completed 09/23/2018 65446 Partial Excision, Bone;Fibula Completed 07/30/2017 [id number] Diabetic Foot Exam Completed Medical Devices Description No Information Available Encounters Type Date Location Provider Dx Diagnosis Office Visit 10/27/2018 [facility] Nephrology Juan F Hurd, N18.4 Chronic kidney 9:00a disease, stage 4 (severe) I12.9 Hypertensive chronic kidney disease w stg 1-4/unsp chr kdny E11.22 Type 2 diabetes mellitus w diabetic chronic kidney disease Z68.41 Body mass index (BMI) 40.0-44.9, adult E11.621 Type 2 diabetes mellitus with foot ulcer I10 Essential (primary) hypertension D64.9 Anemia, unspecified L03.115 Cellulitis of right lower limb Z79.4 senior living (current) use of insulin Office Visit 10/22/2018 9:40a [facility], L97.419 Non-prs chr [facility] ulcer of right heel and midfoot w unsp severt E11.621 Type 2 diabetes mellitus with foot ulcer E11.21 Type 2 diabetes mellitus with diabetic nephropathy I10 Essential (primary) hypertension Z79.4 technician terminal and 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 D64.9 Anemia, unspecified R74.8 Abnormal levels of other serum enzymes N17.9 Acute kidney failure, unspecified I10 Essential (primary) hypertension I26.99 Other pulmonary embolism without acute cor pulmonale Office Visit 10/01/2018 9:12a [facility] Thanh L03.115 Cellulitis of [facility] Rivera Cadena 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 R74.8 Abnormal levels of other serum enzymes N17.9 Acute kidney failure, unspecified I10 Essential (primary) hypertension I26.99 Other pulmonary embolism without acute cor pulmonale Office Visit 09/30/2018 9:11a [facility] Thanh L03.115 [facility] 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 L03.115 Cellulitis of right lower limb 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 D72.829 Elevated white blood cell count, unspecified Office Visit 09/29/2018 9:11a [facility] Thanh L03.115 Cellulitis of Ass Rivera Cadena 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 D64.9 Anemia, unspecified R79.1 Abnormal coagulation profile R74.8 Abnormal levels of other serum enzymes I10 Essential (primary) hypertension N17.9 Acute kidney failure, unspecified I26.99 Other pulmonary embolism without acute cor pulmonale Office Visit 09/27/2018 9:10a [facility] Thanh L03.115 Cellulitis of Assoc,arlet Cadena M.D. 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 D64.9 Anemia, unspecified R79.1 Abnormal coagulation profile R74.8 Abnormal levels of other serum enzymes N17.9 Acute kidney failure, unspecified I10 Essential (primary) hypertension I26.99 Other pulmonary embolism without acute cor pulmonale Office Visit 09/26/2018 [facility] E11.610 Type 2 diabetes 9:10a Assoc,arlet Andersen DO mellitus w Hospitalists diabetic neuropathic arthropathy L03.115 Cellulitis of right lower limb N17.9 Acute kidney failure, unspecified R74.8 Abnormal levels of other serum enzymes D64.9 Anemia, unspecified D68.59 Other primary thrombophilia I10 Essential (primary) hypertension Office Visit 09/25/2018 [facility] E11.610 Type 2 diabetes 9:07a Assoc,arlet Andersen DO mellitus w Hospitalists diabetic neuropathic arthropathy L03.115 Cellulitis of right lower limb R74.8 Abnormal levels of other serum enzymes N17.9 Acute kidney failure, unspecified I10 Essential (primary) hypertension I26.99 Other pulmonary embolism without acute cor pulmonale R79.1 Abnormal coagulation profile Office Visit 09/24/2018 9:06a [facility] M14.671 [facility],arlet Andersen DO joint, right Hospitalists ankle and foot L03.115 Cellulitis of right lower limb R74.8 Abnormal levels of other serum enzymes N17.9 Acute kidney failure, unspecified I10 Essential (primary) hypertension I26.99 Other pulmonary embolism without acute cor pulmonale R79.1 Abnormal coagulation profile Office Visit 09/24/2018 8:45a [facility] Kelechi Thomas L03.115 Cellulitis of For Fei Tapia M.D. 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 Office Visit 09/23/2018 [facility] E11.610 Type 2 diabetes 9:06a arlet Heard DO mellitus w Hospitalists diabetic neuropathic arthropathy L03.115 Cellulitis of right lower limb R74.8 Abnormal levels of other serum enzymes N17.9 Acute kidney failure, unspecified I10 Essential (primary) hypertension I26.99 Other pulmonary embolism without acute cor pulmonale R79.1 Abnormal coagulation profile Office Visit 09/22/2018 [facility] E11.610 Type 2 diabetes 9:06a arlet Heard DO mellitus w Hospitalists diabetic neuropathic arthropathy L03.115 Cellulitis of right lower limb R74.8 Abnormal levels of other serum enzymes N17.9 Acute kidney failure, unspecified I10 Essential (primary) hypertension I26.99 Other pulmonary embolism without acute cor pulmonale R79.1 Abnormal coagulation profile Office Visit 09/22/2018 11:12a [facility] Kelechi Thomas L03.115 Cellulitis of For Fei Tapai M.D. 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 I12.9 Hypertensive chronic kidney disease w stg 1-4/unsp chr kdny E11.22 Type 2 diabetes mellitus w diabetic chronic kidney disease N18.9 Chronic kidney disease, unspecified Office Visit 09/21/2018 8:30a [facility] Vickie[facility] Galindo E11.622 Type 2 diabetes [facility] NADYA Tubbs mellitus with other skin ulcer L97.519 Non-prs chronic ulcer oth prt right foot w unsp severity 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 Office Visit 09/21/2018 7:53a [facility] Sweta L03.115 Cellulitis of at NIKIA [place] right lower limb 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 joint, left ankle and foot Assessments Date Code Description Provider 12/24/2018 L97.529 Non-pressure chronic ulcer of other Ruben Jean-Baptiste MD part of left foot with unspecified severity 12/15/2018 L97.529 Non-pressure chronic ulcer of other [...] DNP , RN, ankle with unspecified severity [facility] 10/29/2018 E11.622 Type 2 diabetes mellitus with other Camille Mccormick DNP , RN, skin ulcer [facility]- 10/29/2018 E11.42 Type 2 diabetes mellitus with Camille Mccormick DNP, RN, diabetic polyneuropathy [facility]- 10/29/2018 M10.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, right ankle and Camille Mccormick DNP, RN , foot [facility]- 10/27/2018 N18.4 Chronic kidney disease, stage 4 [...] limb Juan F Hurd MD 10/27/2018 Z79.4 senior living (current) use of insulin Juan F Hurd [...] (primary) hypertension Atul Monroy MD 10/22/2018 Z79.4 technician terminal and repeater (current) use of insulin Atul Monroy MD [...] 10/03/2018 Z47.89 Encounter for other orthopedic Julissa Ledbetter, RPA-C aftercare 10/03/2018 D64.9 Anemia, unspecified Thanh Cadena [...] 2 diabetes mellitus with other Vickie Tubbs, NADYA skin ulcer 09/29/2018 M25.462 Effusion, left knee NIKIA Ortiz 09/29/2018 L03.115 Cellulitis of right lower limb Thanh Cadena M.D. 09/29/2018 L97.319 Non-pressure chronic ulcer of right Vickie Tubbs NP ankle with unspecified severity 09/29/2018 E11.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 with Thanh Cadena M.D. diabetic neuropathic arthropathy 09/29/2018 L03.115 Cellulitis of right lower limb Vickie Tubbs, FRONT END WHEEL LOADER OPERATOR 09/29/2018 D64.9 Anemia, unspecified Thanh Cadena M.D. 09/29/2018 E11.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 with Vickie Tubbs, FRONT END WHEEL LOADER OPERATOR diabetic neuropathic arthropathy 09/29/2018 R79.1 Abnormal coagulation profile Thnah Cadena M.D. 09/29/2018 D72.829 Elevated white blood cell count, Vickie Josie Tubbs , FRONT END WHEEL LOADER OPERATOR unspecified 09/29/2018 R74.8 Abnormal levels of other [...] 09/24/2018 Z98.890 Other specified postprocedural Lucita Sheldon [facility] states 09/24/2018 E11.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 [...] preprocedural Gene Conley MD, FACC, cardiovascular examination [facility] 09/23/2018 E11.9 Type 2 diabetes mellitus without Gene Conley MD, FACC , complications [facility] 09/23/2018 E11.610 Type 2 diabetes [...] Type 2 diabetes mellitus with Mayelin Andersen, diabetic neuropathic arthropathy 09/22/2018 L03.115 Cellulitis of right lower limb Mayelin Andersen, 09/22/2018 R74.8 Abnormal levels of other serum Mayelin Andersen, enzymes 09/22/2018 N17.9 Acute kidney failure, unspecified Mayelin Andersen, DO 09/22/2018 I10 Essential (primary) hypertension Mayelin Andersen, DO 09/22/2018 I26.99 Other pulmonary embolism without Mayelin Andersen, DO acute cor pulmonale 09/22/2018 R79.1 Abnormal coagulation profile Mayelin Andersen, 09/22/2018 L03.115 Cellulitis of right lower limb [...] 2 diabetes mellitus with other Vickie Tubbs, FRONT END WHEEL LOADER OPERATOR skin ulcer 09/21/2018 E78.5 Hyperlipidemia, unspecified Lidia Warren M.D. 09/21/2018 L97.519 Non-pressure chronic ulcer of other Vickie Tubbs, NADYA part of right foot with unspecified severity 09/21/2018 E11.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 with Lidia Warren M.D. diabetic neuropathic arthropathy 09/21/2018 E11.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 with Vickie Tubbs, FRONT END WHEEL LOADER OPERATOR diabetic neuropathic arthropathy 09/21/2018 L03.115 Cellulitis of right lower limb NIKIA Ortiz 09/21/2018 I12.9 Hypertensive chronic kidney disease iLdia Warren M.D. with stage 1 through stage [...] 8:40 am - Atul Monroy MD at [facility]12/24/2018 - Ruben Jean-Baptiste MDL97.529 Non-pressure chronic ulcer of other part of left foot with unspecified severityFollow up: Follow Up: 1 week Functional Status Description No Information Available Mental Status Description No Information Available Referrals Refer to Dr Reason for Referral Status Appt Date Wound Clinic R heel ulcer Created [address] [place] [address] [phone] [facility] chronic right ankle wound Sent [phone] - Wound care center in [place] referral for right foot wound Sent [facility] Right custom diabetic shoe with Closed rocker bottom [address] [facility] [address] [place] [id number] [phone] Onofre Denson MD diabetic foot disease Created [address] [place] [address] [phone] Wound Clinic R heel ulcer Sent 10/29/[address] [place] [address] [phone] Matilda Caballero MD CKD-5, diabetes. Patient Notified 10/27/2018 [address] [facility] [address] [phone]
--- OUTSIDE RECORDS SUMMARY | 2019-01-29 12:43 | XMS REPORT | Continuity of Care Document ---
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 Family Medicine Problems Active Problems Provider Date [...] Use Denies Drug Use Smoking Status Reviewed: 12/08/18 Patient is a former quit smoking 2008 [...] Available Vital Signs Date Vital Result Comment 12/08/2018 2:27pm Height 64 inches 5'4" Weight 242.00 lb Heart Rate 90 /min Respiratory Rate 15 /min Body Temperature 97.0 F Pain Level 0 BMI (Body Mass Index) 41.5 kg/m2 12/01/2018 2:53pm Height 64 inches 5'4" Weight 242.00 lb Heart Rate 87 /min BP Systolic 130 mmHg BP Diastolic 78 mmHg Body Temperature 97.0 F Pain Level 0 BMI (Body Mass Index) 41.5 kg/m2 Results Test Date Facility Test Result H/L Range Note Urine Culture And 11/25/2018 [facility] Urine Culture SEE RESULT [address] [place] [address] [phone] Urinalysis Profile 11/25/2018 [facility] Urine Color Yellow [address] [place] [address] [phone] Urine Appearance Cloudy Urine Specific [place] 1.012 Normal 1.010-1.030 Urine pH 6.0 Normal [...] Cell Present Abnormal Absent Neph Routine 11/25/2018 [facility] Total Protein Random 171 mg/ dL [address] [place] [address] [phone] Creatinine Random Urine 86.90 mg/dL Inr/Protime 11/25/2018 [facility] Inr 2.29 High 0.82-1.[address] [place] [address] [phone] Laboratory test 11/25/2018 [facility] Ferritin 548.5 High 11- [address] ng/[place] [address] [phone] Iron & Iron 11/25/2018 [facility] Iron 25 g/dL Low 50-212 Binding Capacity [address] [place], [place] [id number] [phone] Unsaturated Iron Binding < 185 g/dL Total Iron Binding Capacity 200 g/dL Low 250-450 Transferrin 143 mg/dL Low 203-362 % Iron Saturation 13 % Low 15-55 Basic Metabolic 11/25/2018 [facility] Sodium 139 mmol/L Normal 135-145 Panel [address] [place] [address] [phone] Potassium 4.1 mmol/L Normal 3.5-5.0 Chloride 101 mmol/L Normal 101-111 Co2 Carbon Dioxide 27 mmol/L Normal 22-32 Anion Gap 11 mmol/L Normal 2-11 Glucose 133 mg/dL High 70-100 Blood Urea Nitrogen 55 mg/dL High 6-24 Creatinine 2.47 mg/dL High 0.51-0.95 BUN/Creatinine Ratio 22.3 High 8-20 Calcium 9.2 mg/dL Normal 8.6-10.3 Egfr Non- 20.0 >60 Egfr 24.2 >60 4 CBC Auto 11/25/2018 [facility] White Blood 12.7 10^3/uL High 3.5-10.[address] [place] [address] [phone] Red Blood Count 3.50 10^6/uL Low 3.70-4.87 [...] Red Blood Cells % 0.1 Protein 11/25/2018 [facility] Total 6.9 g/dL 6.3 - Electrophoresis DRIVE Protein(Pep) 7.9 [place], [place] [id number] [phone] Albumin 2.4 g/dL Abnormal 3.4-4.7 Alpha-1 Globulin 0.5 g/dL Abnormal 0.1-0.3 Alpha-2 Globulin 1.4 g/dL Abnormal 0.6-1.0 Beta Globulin 1.3 g/dL Abnormal 0.7-1.2 Gamma Globulin 1.4 g/dL 0.6-1.6 Albumin/Globulin Ratio 0.53 Impression See Comment 5 [place]/Lambda Free 11/25/2018 [facility] [place] Free 22.0 mg/dL Abnormal [address] [place] [address] [phone] Lambda Free Light Chain 11.7 mg/dL Abnormal 7 [place]/Lambda Free Light Chain 1.88 Abnormal 8 Inr/Protime 11/09/2018 [facility] Inr 2.00 High 0.82-1.[address] [place] [address] [phone] Inr/Protime 10/29/2018 [facility] Inr 2.55 High 0.82-1.[address] [place], [place] [address] [phone] Wound 10/29/2018 [facility] Wound/Misc SEE 11 Culture/Sensi DRIVE [place] [address] Stain BELOW [phone] Laboratory 10/29/2018 [facility] Erythrocyte > 120 High 0-[address] Sed Rate mm/[place] [address] [phone] CBC Auto Diff 10/29/2018 [facility] White Blood 8.6 Normal 3.5 -10.8 DRIVE Count 10^3/[place] [address] [phone] Red Blood Count 3.75 10^6/uL Normal 3.70-4.87 [...] Blood Cells % 0.1 Laboratory test 10/29/2018 [facility] Uric Acid 9.5 mg/dL High 2.3-6.6 finding [address] [place], [place] [address] [phone] Prealbumin 21 mg/dL Normal 18-38 C Reactive Protein 30.27 mg/L High <8.01 Vitamin B12 379 pg/mL Normal 180-914 12 Protime W/ Inr 10/21/2018 [facility] Inr 1.96 High 0.82-1.[address] [place], [place] [address] [phone] Protime W/ Inr 10/13/2018 [facility] Inr 2.47 High 0.82-1.[address] [place] [address] [phone] Urine 10/12/2018 [facility] Urine 70.93 Microalbumin [facility] Creatinine mg/[place] [address] [phone] Ur Microalbumin (mg/L) 2109.4 mg/L Urine Microalbumin/Creatinine 2973.9 High <31 Comp Metabolic 10/12/2018 [facility] Sodium 141 mmol/L Normal 135-145 Panel [address] [place] [address] [phone] Potassium 4.2 mmol/L Normal 3.5-5.0 Chloride 106 [...] [address]: Cayla Cervantes MD Acct: [id number] Unit: [id number] AGE: 58 Location: LAB Re11/25/18 SEX: F Status: REG REF SPEC: [id number] REY: 11/25/[address]: Juan F Hurd MD REQ: [id number] RECD: 11/25/18 STATUS: COMP _ SOURCE: URINE SPDESC: ORDERED: Urine Culture Procedure Result Reported Site Urine Culture Final 11/26/18- 1212 ML No growth of clinically significant organisms * ML - Main Lab . END OF REPORT DEPARTMENT OF PATHOLOGY, [address] [place] [address] Rylan Mcleod M.D. Director [facility] # [id number] 2 *Ascorbic acid is present which may [...] protein on serum electrophoresis. Test Performed by: [facility] [place] [address] Filling Technician: Steve Mcallister M.D. Ph.D.; CLIA# [id number] 6 REFERENCE VALUE 0.3300-1.94 7 REFERENCE VALUE 0.5700-2.63 8 Elevated free light chain ratios between 1.66 and 3.00 may occur due to polyclonal hypergammaglobulinemia or impaired renal clearance. An isolated increased free light chain ratio in this range should be interpreted with caution, and clinical correlation is recommended. REFERENCE VALUE 0.2600-1.65 Test Performed by: [facility] [place] [address] Filling Technician: Steve Mcallister M.D. Ph.D.; CLIA# [id number] 9 Standard intensity warfarin therapeutic range: 2.0-3.0 High intensity warfarin therapeutic range: 2.5-3.5 10 Standard intensity warfarin therapeutic range: 2.0-3.0 High intensity warfarin therapeutic range: 2.5-3.5 11 SEE RESULT BELOW Name: GEMMA JON : [address]: Camille Mccormick INTERIOR PAINTER Acct: [id number] Unit: [id number] AGE: 58 Location: WOUND Re10/29/18 SEX: F Status: REG REF SPEC: [id number] REY: 10/29/18-[address]: Camille Mccormick NP REQ: [id number] RECD: 10/29/18 STATUS: [facility] DR: Cayla Cervantes MD _ SOURCE: WOUND SPDESC: ORDERED: Culture Stain COMMENTS: RIGHT ANKLE Procedure Result Reported Site Wound/Misc Gram Stain Final 10/29/18- 172 ML 3+ Neutrophils No Organisms Seen Wound/Misc Culture Final 10/31/18- 0854 ML Organism 1 NORMAL MAYI Quantity 1+ * ML - Main Lab . END OF REPORT DEPARTMENT OF PATHOLOGY, [address] [place] [address] Rylan Mcleod M.D. Director [facility] # [id number] 12 Normal Range 180 to 914 Indeterminate [...] (or dialysis) Procedures Date Code Description Status 12/08/2018 82544 Negative Pressure Wound Therapy Less Than 50 Square CM Completed 12/01/2018 93589 Negative Pressure Wound Therapy Less Than 50 Square CM Completed 11/17/2018 58443 Negative Pressure Wound Therapy Less Than 50 Square CM Completed 11/15/2018 45818 Negative Pressure Wound Therapy Less Than 50 Square CM Completed 11/09/2018 61273 Negative Pressure Wound Therapy Less Than 50 Square CM Completed 10/29/2018 77977 Removal Devitalization Tissue Wound Less Than Equal 20 Completed Square CM 09/29/2018 57227 Inject/Drain Joint/Bursa Major W/O US Completed 09/23/2018 82968 Negative Pressure Wound Therapy Less Than 50 Square CM Completed 09/23/2018 45222 Treadmill Interp/Report Only Completed 09/23/2018 21343 Stress Test Supervsn W/Out I/R Completed 09/23/2018 22835 Partial Excision, Bone;Fibula Completed 09/23/2018 58984 Partial Excision, Bone;Fibula Completed 07/30/2017 [id number] Diabetic Foot Exam Completed Medical Devices Description No Information Available Encounters Type Date Location Provider Dx Diagnosis Office Visit 10/27/2018 [facility] Nephrology Juan F Masseyih, N18.4 Chronic kidney 9:00a disease, stage 4 (severe) I12.9 Hypertensive chronic kidney disease w stg 1-4/unsp chr kdny E11.22 Type 2 diabetes mellitus w diabetic chronic kidney disease Z68.41 Body mass index (BMI) 40.0-44.9, adult E11.621 Type 2 diabetes mellitus with foot ulcer I10 Essential (primary) hypertension D64.9 Anemia, unspecified L03.115 Cellulitis of right lower limb 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 Office Visit 10/22/2018 9:40a [facility] Coch, L97.419 Non-prs chr Endocrinology of [facility] ulcer of right heel and midfoot w unsp severt E11.621 Type 2 diabetes mellitus with foot ulcer E11.21 Type 2 diabetes mellitus with diabetic nephropathy I10 Essential (primary) hypertension Z79.4 skilled nursing (current) use of insulin N18.3 Chronic kidney disease, stage 3 (moderate) Office Visit 10/11/2018 12:41p [facility] Internal Sristee I26.99 Other pulmonary Medicine - Suite MD Helen embolism without R acute cor pulmonale E11.621 Type 2 diabetes mellitus with foot ulcer I10 Essential (primary) hypertension Office Visit 10/04/2018 6:20a [facility] Kelechi Thomas L03.115 Cellulitis of For Fei Tapia M.D. 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 R79.89 Other specified abnormal findings of blood chemistry I10 Essential (primary) hypertension Z86.711 Personal history of pulmonary embolism Office Visit 10/02/2018 9:12a [facility] Thanh L03.115 Cellulitis of arlet Heard M.D. 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 D64.9 Anemia, unspecified R74.8 Abnormal levels of other serum enzymes N17.9 Acute kidney failure, unspecified I10 Essential (primary) hypertension I26.99 Other pulmonary embolism without acute cor pulmonale Office Visit 10/01/2018 9:12a [facility] Thanh L03.115 Cellulitis of [facility] Rivera Cadena 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 R74.8 Abnormal levels of other serum enzymes N17.9 Acute kidney failure, unspecified I10 Essential (primary) hypertension I26.99 Other pulmonary embolism without acute cor pulmonale Office Visit 09/30/2018 9:11a [facility] Thanh Weaver03.115 Cellulitis of [facility] Rivera Cadena 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 D64.9 Anemia, unspecified R74.8 Abnormal levels of other serum enzymes N17.9 Acute kidney failure, unspecified I10 Essential (primary) hypertension I26.99 Other pulmonary embolism without acute cor pulmonale Office Visit 09/29/2018 9:23a [facility] E11.622 Type 2 For Infectious Tubbs, INTERIOR PAINTER diabetes Diseases mellitus with other skin ulcer 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 L03.115 Cellulitis of right lower limb 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 D72.829 Elevated white blood cell count, unspecified Office Visit 09/29/2018 9:11a [facility] Thanh L03.115 Cellulitis of [facility] Rivera Cadena 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 D64.9 Anemia, unspecified R79.1 Abnormal coagulation profile R74.8 Abnormal levels of other serum enzymes N17.9 Acute kidney failure, unspecified I10 Essential (primary) hypertension I26.99 Other pulmonary embolism without acute cor pulmonale Office Visit 09/28/2018 9:11a [facility] Thanh L03.115 Cellulitis of [facility] Rivera Cadena 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 D64.9 Anemia, unspecified R79.1 Abnormal coagulation profile R74.8 Abnormal levels of other serum enzymes I10 Essential (primary) hypertension N17.9 Acute kidney failure, unspecified I26.99 Other pulmonary embolism without acute cor pulmonale Office Visit 09/27/2018 9:10a [facility] L03.115 Cellulitis of Assoc,arlet Cadena M.D. 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 D64.9 Anemia, unspecified R79.1 Abnormal coagulation profile R74.8 Abnormal levels of other serum enzymes N17.9 Acute kidney failure, unspecified I10 Essential (primary) hypertension I26.99 Other pulmonary embolism without acute cor pulmonale Office Visit 09/26/2018 [facility] E11.610 Type 2 diabetes 9:10a Assoc,arlet Andersen DO mellitus w Hospitalists diabetic neuropathic arthropathy L03.115 Cellulitis of right lower limb N17.9 Acute kidney failure, unspecified R74.8 Abnormal levels of other serum enzymes D64.9 Anemia, unspecified D68.59 Other primary thrombophilia I10 Essential (primary) hypertension Office Visit 09/25/2018 [facility] E11.610 Type 2 diabetes 9:07a Assoc,arlet Andersen DO mellitus w Hospitalists diabetic neuropathic arthropathy L03.115 Cellulitis of right lower limb R74.8 Abnormal levels of other serum enzymes N17.9 Acute kidney failure, unspecified I10 Essential (primary) hypertension I26.99 Other pulmonary embolism without acute cor pulmonale R79.1 Abnormal coagulation profile Office Visit 09/24/2018 9:06a [facility] M14.671 [facility],arlet Andersen DO joint, right Hospitalists ankle and foot L03.115 Cellulitis of right lower limb R74.8 Abnormal levels of other serum enzymes N17.9 Acute kidney failure, unspecified I10 Essential (primary) hypertension I26.99 Other pulmonary embolism without acute cor pulmonale R79.1 Abnormal coagulation profile Office Visit 09/24/2018 8:45a [facility] Kelechi Thomas L03.115 Cellulitis of For Fei Tapia M.D. 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 Office Visit 09/23/2018 [facility] E11.610 Type 2 diabetes 9:06a Assarlet coleman DO mellitus w Hospitalists diabetic neuropathic arthropathy L03.115 Cellulitis of right lower limb R74.8 Abnormal levels of other serum enzymes N17.9 Acute kidney failure, unspecified I10 Essential (primary) hypertension I26.99 Other pulmonary embolism without acute cor pulmonale R79.1 Abnormal coagulation profile Office Visit 09/22/2018 [facility] E11.610 Type 2 diabetes 9:06a Assocarlet DO mellitus w Hospitalists diabetic neuropathic arthropathy L03.115 Cellulitis of right lower limb R74.8 Abnormal levels of other serum enzymes N17.9 Acute kidney failure, unspecified I10 Essential (primary) hypertension I26.99 Other pulmonary embolism without acute cor pulmonale R79.1 Abnormal coagulation profile Office Visit 09/22/2018 11:12a [facility] Kelechi Thomas L03.115 Cellulitis of For Fei Tapia M.D. 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 I12.9 Hypertensive chronic kidney disease w stg 1-4/unsp chr kdny E11.22 Type 2 diabetes mellitus w diabetic chronic kidney disease N18.9 Chronic kidney disease, unspecified Office Visit 09/21/2018 8:30a [facility] Vickie Galindo E11.622 Type 2 diabetes [facility] Arley, INTERIOR PAINTER mellitus with other skin ulcer L97.519 Non-prs chronic ulcer oth prt right foot w unsp severity 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 Office Visit 09/21/2018 7:53a [facility] Sweta L03.115 Cellulitis of at NIKIA [place] right lower limb 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 L97.519 Non-prs chronic ulcer oth prt right foot w unsp severity E11.621 Type 2 diabetes mellitus with foot ulcer Office Visit 08/24/2018 9:00a [facility], E11.22 Type 2 diabetes Endocrinology of [facility] MD mellitus w diabetic chronic kidney disease N18.4 Chronic kidney disease, stage 4 (severe) 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 E78.5 Hyperlipidemia, unspecified I10 Essential (primary) hypertension Office Visit 07/20/2018 8:30a [facility] Thanh M14.672 [facility] at Alfredo Wood M.D. joint, left ankle and foot Assessments Date Code Description Provider 12/08/2018 L97.529 Non-pressure chronic ulcer of other Ruben Jean-Baptiste MD part of left foot with unspecified severity 12/01/2018 L97.529 Non-pressure chronic ulcer of kmi Jean-Baptiste MD part of left foot with [...] ulcer 11/17/2018 L97.529 Non-pressure chronic ulcer of kim Jean-Baptiste MD part of left foot with unspecified severity 11/15/2018 E11.621 Type 2 diabetes mellitus with foot Ruben Jean-Baptiste MD ulcer 11/15/2018 L97.529 Non-pressure chronic ulcer of kim Jean-Baptiste MD part of left foot with [...] DNP , RN, ankle with unspecified severity 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 E11.622 Type 2 diabetes mellitus with other Camille Mccormick DNP , RN, skin ulcer 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 E11.42 Type 2 diabetes mellitus with Camille Mccormick DNP, RN, diabetic polyneuropathy 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 M10.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, right ankle and Camille Mccormick DNP, RN , foot [employer]SP[employer] 10/27/2018 N18.4 Chronic kidney disease, stage 4 [...] limb Juan F Hurd MD 10/27/2018 Z79.4 skilled nursing (current) use of insulin Juan F Hurd [...] (primary) hypertension Atul Monroy MD 10/22/2018 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 acute cor pulmonale 09/26/2018 E11.610 Type [...] severity 09/24/2018 Z98.890 Other specified postprocedural Lucita Sheldon, FEMI-C states 09/24/2018 E11.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 [...] Z01.810 Encounter for preprocedural Gene Conley MD, [facility], cardiovascular examination [facility] 09/23/2018 E11.9 Type 2 diabetes mellitus without Gene Conley MD, FACC , complications [facility] 09/23/2018 E11.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 [...] 09/22/2018 R74.8 Abnormal levels of other serum Mayelinaaron Andersen, DO enzymes 09/22/2018 N17.9 Acute kidney failure, unspecified Mayelin Senner, DO 09/22/2018 I10 Essential (primary) hypertension Mayelin Ganesh, DO 09/22/2018 I26.99 Other pulmonary embolism without Mayelin Senadriano, DO acute cor pulmonale 09/22/2018 R79.1 Abnormal coagulation profile Mayelin Senadriano, DO 09/22/2018 L03.115 Cellulitis of right lower [...] Wood M.D. foot Plan of Treatment Future Appointment(s):12/30/2018 10:30 am - Juan F Hurd MD at [facility] [place]10/12/2019 8:40 am - Atul Monroy MD at [facility]11/17/2018 - Ruben Jean-Baptiste MDE11.621 Type 2 diabetes mellitus with foot ulcerFollow up:1 weekL97.529 Non-pressure chronic ulcer of other part of left foot with unspecified severity Functional Status Description No Information Available Mental Status Description No Information Available Referrals Refer to Reason for Referral Status Appt Date [facility] W[facility] care center in [place] referral for right Created foot wound ([phone] - Rf Manager [facility] Right custom diabetic shoe with Closed rocker bottom [address] [facility] [address] [place] [address] [phone] Onofre Denson MD diabetic foot disease Created [address] [place] [address] [phone] Wound Clinic R heel ulcer Sent 10/29/[address] [place] [address] [phone] Matilda Caballero MD CKD-5, diabetes. Patient Notified 10/27/2018 [address] [facility] [address] [phone]
--- OUTSIDE RECORDS SUMMARY | 2019-01-29 12:43 | XMS REPORT | Continuity of Care Document ---
:1960 External Reference #:[id number] Author Name Ruben Jean-Baptiste MD (transmitted by agent of provider Christie Kaplan) Address [address] [place] [address] Care Team Providers Name Role Phone Deborah Pastor MD - Care Team Information Information Assistant Family Medicine Problems Active Problems Provider Date Acute renal failure syndrome Candace Pabon DO Onset: 11/03/2017 Essential hypertension Candace Pabon DO Onset: 11/03/2017 Chronic kidney disease stage 3 Candcae Pabon DO Onset: 11/03/2017 Type 2 diabetes [...] Available Vital Signs Date Vital Result Comment 12/15/2018 1:44pm Height 64 inches 5'4" Weight 240.00 lb Heart Rate 96 /min BP Systolic 140 mmHg BP Diastolic 80 mmHg Respiratory Rate 16 /min Body Temperature 97.7 F Pain Level 0 BMI (Body Mass Index) 41.2 kg/m2 12/08/2018 2:27pm Height 64 inches 5'4" Weight 242.00 lb Heart Rate 90 /min Respiratory Rate 15 /min Body Temperature 97.0 F Pain Level 0 BMI (Body Mass Index) 41.5 kg/m2 Results Test Acquired Date Facility Test Result H/L Range Note Urine Culture And 11/25/2018 [facility] Urine SEE RESULT [address] [place] [address] [phone] Urinalysis Profile 11/25/2018 [facility] Urine Color Yellow [address] [place] [address] [phone] Urine Appearance Cloudy Urine Specific [place] 1.012 Normal 1.010-1.030 Urine pH 6.0 Normal [...] Cell Present Abnormal Absent Neph Routine 11/25/2018 [facility] Total Protein Random 171 mg/ dL [address] [place] [address] [phone] Creatinine Random Urine 86.90 mg/dL Inr/Protime 11/25/2018 [facility] Inr 2.29 High 0.82-1.[address] [place] [address] [phone] Laboratory test 11/25/2018 [facility] Ferritin 548.5 High 11- [address] ng/[place] [address] [phone] Iron & Iron 11/25/2018 [facility] Iron 25 g/dL Low 50-212 Binding Capacity [address] [place] [address] [phone] Unsaturated Iron Binding < 185 g/dL Total Iron Binding Capacity 200 g/dL Low 250-450 Transferrin 143 mg/dL Low 203-362 % Iron Saturation 13 % Low 15-55 Basic Metabolic 11/25/2018 [facility] Sodium 139 mmol/L Normal 135-[address] [place] [address] [phone] Potassium 4.1 mmol/L Normal 3.5-5.0 Chloride 101 mmol/L Normal 101-111 Co2 Carbon Dioxide 27 mmol/L Normal 22-32 Anion Gap 11 mmol/L Normal 2-11 Glucose 133 mg/dL High 70-100 Blood Urea Nitrogen 55 mg/dL High 6-24 Creatinine 2.47 mg/dL High 0.51-0.95 BUN/Creatinine Ratio 22.3 High 8-20 Calcium 9.2 mg/dL Normal 8.6-10.3 Egfr Non- 20.0 >60 Egfr 24.2 >60 4 CBC Auto 11/25/2018 [facility] White Blood 12.7 10^3/uL High 3.5-10.[address] [place] [address] [phone] Red Blood Count 3.50 10^6/uL Low 3.70-4.87 [...] Red Blood Cells % 0.1 Protein 11/25/2018 [facility] Total 6.9 g/dL 6.3 - Electrophoresis DRIVE Protein(Pep) 7.9 [place], [place] [id number] [phone] Albumin 2.4 g/dL Abnormal 3.4-4.7 Alpha-1 Globulin 0.5 g/dL Abnormal 0.1-0.3 Alpha-2 Globulin 1.4 g/dL Abnormal 0.6-1.0 Beta Globulin 1.3 g/dL Abnormal 0.7-1.2 Gamma Globulin 1.4 g/dL 0.6-1.6 Albumin/Globulin Ratio 0.53 Impression See Comment 5 [place]/Lambda Free 11/25/2018 [facility] [place] Free 22.0 mg/dL Abnormal [address] [place] [address] [phone] Lambda Free Light Chain 11.7 mg/dL Abnormal 7 [place]/Lambda Free Light Chain 1.88 Abnormal 8 Inr/Protime 11/09/2018 [facility] Inr 2.00 High 0.82-1.[address] [place] [address] [phone] Inr/Protime 10/29/2018 [facility] Inr 2.55 High 0.82-1.[address] [place], [place] [address] [phone] Wound 10/29/2018 [facility] Wound/Misc SEE 11 Culture/[address] [place] [address] Stain BELOW [phone] Laboratory 10/29/2018 [facility] Erythrocyte > 120 High 0-[address] Sed Rate mm/[place] [address] [phone] CBC Auto Diff 10/29/2018 [facility] White Blood 8.6 Normal 3.5 -10.8 DRIVE Count 10^3/uL [place], [place] [address] [phone] Red Blood Count 3.75 10^6/uL Normal 3.70-4.87 [...] Blood Cells % 0.1 Laboratory test 10/29/2018 [facility] Uric Acid 9.5 mg/dL High 2.3-6.6 finding [address] [place] [address] [phone] Prealbumin 21 mg/dL Normal 18-38 C Reactive Protein 30.27 mg/L High <8.01 Vitamin B12 379 pg/mL Normal 180-914 12 Protime W/ Inr 10/21/2018 [facility] Inr 1.96 High 0.82-1.09 [address] [place] [address] [phone] Protime W/ Inr 10/13/2018 [facility] Inr 2.47 High 0.82-1.09 [address] [place] [address] [phone] Urine 10/12/2018 [facility] Urine 70.93 Microalbumin [facility] Creatinine mg/[place] [address] [phone] Ur Microalbumin (mg/L) 2109.4 mg/L Urine Microalbumin/Creatinine 2973.9 High <31 Comp Metabolic 10/12/2018 [facility] Sodium 141 mmol/L Normal 135-145 Panel [address] [place] [address] [phone] Potassium 4.2 mmol/L Normal 3.5-5.0 Chloride 106 [...] [address]: Cayla Cervantes MD Acct: [id number] Unit: [id number] AGE: 58 Location: LAB Re11/25/18 SEX: F Status: REG REF SPEC: [id number] REY: 11/25/[address]: Juan F Hurd MD REQ: [id number] RECD: 11/25/18 STATUS: COMP _ SOURCE: URINE SPDESC: ORDERED: Urine Culture Procedure Result Reported Site Urine Culture Final 11/26/18- 1212 ML No growth of clinically significant organisms * ML - Main Lab . END OF REPORT DEPARTMENT OF PATHOLOGY, [address] [place] [address] Rylan Mcleod M.D. Director [facility] # [id number] 2 *Ascorbic acid is present which may [...] protein on serum electrophoresis. Test Performed by: [facility] [address] Production Administrative Assistant: Steve Mcallister M.D. Ph.D.; CLIA# [id number] 6 REFERENCE VALUE 0.3300-1.94 7 REFERENCE VALUE 0.5700-2.63 8 Elevated free light chain ratios between 1.66 and 3.00 may occur due to polyclonal hypergammaglobulinemia or impaired renal clearance. An isolated increased free light chain ratio in this range should be interpreted with caution, and clinical correlation is recommended. REFERENCE VALUE 0.2600-1.65 Test Performed by: [facility] [place] [address] Production Administrative Assistant: Steve Mcallister M.D. Ph.D.; CLIA# [id number] 9 Standard intensity warfarin therapeutic range: 2.0-3.0 High intensity warfarin therapeutic range: 2.5-3.5 10 Standard intensity warfarin therapeutic range: 2.0-3.0 High intensity warfarin therapeutic range: 2.5-3.5 11 SEE RESULT BELOW Name: GEMMA JON : [address]: Camille Mccormick FIRE DISPATCHER Acct: [id number] Unit: [id number] AGE: 58 Location: WOUND Re10/29/18 SEX: F Status: REG REF SPEC: [id number] REY: 10/29/18-[address]: Camille Mccormick NP REQ: [id number] RECD: 10/29/18 STATUS: NANDA BISWAS DR: Cayla Cervantes MD _ SOURCE: WOUND SPDESC: ORDERED: Culture Stain COMMENTS: RIGHT ANKLE Procedure Result Reported Site Wound/Misc Gram Stain Final 10/29/18- 1722 ML 3+ Neutrophils No Organisms Seen Wound/Misc Culture Final 10/31/18- 0854 ML Organism 1 NORMAL MAYI Quantity 1+ * ML - Main Lab . END OF REPORT DEPARTMENT OF PATHOLOGY, [address] [place] [address] Rylan Mcleod M.D. Director [facility] # [id number] 12 Normal Range 180 to 914 Indeterminate [...] (or dialysis) Procedures Date Code Description Status 12/15/2018 24306 Negative Pressure Wound Therapy Less Than 50 Square CM Completed 12/08/2018 74573 Negative Pressure Wound Therapy Less Than 50 Square CM Completed 12/01/2018 31166 Negative Pressure Wound Therapy Less Than 50 Square CM Completed 11/17/2018 95984 Negative Pressure Wound Therapy Less Than 50 Square CM Completed 11/15/2018 34099 Negative Pressure Wound Therapy Less Than 50 Square CM Completed 11/09/2018 03985 Negative Pressure Wound Therapy Less Than 50 Square CM Completed 10/29/2018 14620 Removal Devitalization Tissue Wound Less Than Equal 20 Completed Square CM 09/29/2018 53229 Inject/Drain Joint/Bursa Major W/O US Completed 09/23/2018 67731 Negative Pressure Wound Therapy Less Than 50 Square CM Completed 09/23/2018 73144 Treadmill Interp/Report Only Completed 09/23/2018 45885 Stress Test Supervsn W/Out I/R Completed 09/23/2018 54850 Partial Excision, Bone;Fibula Completed 09/23/2018 98770 Partial Excision, Bone;Fibula Completed 07/30/2017 [id number] Diabetic Foot Exam Completed Medical Devices Description No Information Available Encounters Type Date Location Provider Dx Diagnosis Office Visit 10/27/2018 [facility] [address] Nephrology Juan F JeremyAvery Hurd, N18.4 Chronic kidney 9:00a disease, stage 4 (severe) I12.9 Hypertensive chronic kidney disease w stg 1-4/unsp chr kdny E11.22 Type 2 diabetes mellitus w diabetic chronic kidney disease Z68.41 Body mass index (BMI) 40.0-44.9, adult E11.621 Type 2 diabetes mellitus with foot ulcer I10 Essential (primary) hypertension D64.9 Anemia, unspecified L03.115 Cellulitis of right lower limb Z79.4 halfway (current) use of insulin Office Visit 10/22/2018 9:40a [facility] Coch, L97.419 Non-prs chr Endocrinology of [facility] [address] ulcer of right heel and midfoot w unsp severt E11.621 Type 2 diabetes mellitus with foot ulcer E11.21 Type 2 diabetes mellitus with diabetic nephropathy I10 Essential (primary) hypertension 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 Thanh L03.115 Cellulitis of arlet Heard M.D. 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 R79.89 Other specified abnormal findings of blood chemistry I10 Essential (primary) hypertension Z86.711 Personal history of pulmonary embolism Office Visit 10/02/2018 9:12a [facility] Thanh L03.115 Cellulitis of arlet Heard M.D. 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 D64.9 Anemia, unspecified R74.8 Abnormal levels of other serum enzymes N17.9 Acute kidney failure, unspecified I10 Essential (primary) hypertension I26.99 Other pulmonary embolism without acute cor pulmonale Office Visit 10/01/2018 9:12a [facility] Thanh L03.115 [facility] M.[facility]. 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 R74.8 Abnormal levels of other serum enzymes N17.9 Acute kidney failure, unspecified I10 Essential (primary) hypertension I26.99 Other pulmonary embolism without acute cor pulmonale Office Visit 09/30/2018 9:11a [facility] Thanh L03.115 Cellulitis of arlet Heard M.D. 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 Thanh L03.115 Cellul[facility] of [facility] M.D. 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 D64.9 Anemia, unspecified R79.1 Abnormal coagulation profile R74.8 Abnormal levels of other serum enzymes N17.9 Acute kidney failure, unspecified I10 Essential (primary) hypertension I26.99 Other pulmonary embolism without acute cor pulmonale Office Visit 09/28/2018 9:11a [facility] Thanh L03.115 Cellulitis of arlet Heard M.D. 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 D64.9 Anemia, unspecified R79.1 Abnormal coagulation profile R74.8 Abnormal levels of other serum enzymes I10 Essential (primary) hypertension N17.9 Acute kidney failure, unspecified I26.99 Other pulmonary embolism without acute cor pulmonale Office Visit 09/27/2018 9:10a [facility] L03.115 Cellulitis of Assoc,arlet Cadena M.D. 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 D64.9 Anemia, unspecified R79.1 Abnormal coagulation profile R74.8 Abnormal levels of other serum enzymes N17.9 Acute kidney failure, unspecified I10 Essential (primary) hypertension I26.99 Other pulmonary embolism without acute cor pulmonale Office Visit 09/26/2018 [facility] E11.610 Type 2 diabetes 9:10a Assoc,arlet Andersen DO mellitus w Hospitalists diabetic neuropathic arthropathy L03.115 Cellulitis of right lower limb N17.9 Acute kidney failure, unspecified R74.8 Abnormal levels of other serum enzymes D64.9 Anemia, unspecified D68.59 Other primary thrombophilia I10 Essential (primary) hypertension Office Visit 09/25/2018 [facility] E11.610 Type 2 diabetes 9:07a Assoc,arlet Andersen DO mellitus w Hospitalists diabetic neuropathic arthropathy L03.115 Cellulitis of right lower limb R74.8 Abnormal levels of other serum enzymes N17.9 Acute kidney failure, unspecified I10 Essential (primary) hypertension I26.99 Other pulmonary embolism without acute cor pulmonale R79.1 Abnormal coagulation profile Office Visit 09/24/2018 9:06a [facility] M14.671 [facility],arlet Andersen DO joint, right Hospitalists ankle and foot L03.115 Cellulitis of right lower limb R74.8 Abnormal levels of other serum enzymes N17.9 Acute kidney failure, unspecified I10 Essential (primary) hypertension I26.99 Other pulmonary embolism without acute cor pulmonale R79.1 Abnormal coagulation profile Office Visit 09/24/2018 8:45a [facility] Kelechi Thomas L03.115 Cellulitis of For Fei Tapia M.D. 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 Office Visit 09/23/2018 [facility] E11.610 Type 2 diabetes 9:06a arlet Heard DO mellitus w Hospitalists diabetic neuropathic arthropathy L03.115 Cellulitis of right lower limb R74.8 Abnormal levels of other serum enzymes N17.9 Acute kidney failure, unspecified I10 Essential (primary) hypertension I26.99 Other pulmonary embolism without acute cor pulmonale R79.1 Abnormal coagulation profile Office Visit 09/22/2018 [facility] E11.610 Type 2 diabetes 9:06a arlet Heard DO mellitus w Hospitalists diabetic neuropathic arthropathy L03.115 Cellulitis of right lower limb R74.8 Abnormal levels of other serum enzymes N17.9 Acute kidney failure, unspecified I10 Essential (primary) hypertension I26.99 Other pulmonary embolism without acute cor pulmonale R79.1 Abnormal coagulation profile Office Visit 09/22/2018 11:12a [facility] Kelechi Thomas L03.115 Cellulitis of For Fei Tapia M.D. 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 Lidia E78.5 Hyperlipidemia, 9:05a Assarlet coleman M.D. 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 I12.9 Hypertensive chronic kidney disease w stg 1-4/unsp chr kdny E11.22 Type 2 diabetes mellitus w diabetic chronic kidney disease N18.9 Chronic kidney disease, unspecified Office Visit 09/21/2018 8:30a [facility] Vickie Galindo E11.622 Type 2 diabetes Center AT [facility] NADYA Tubbs mellitus with other skin ulcer L97.519 Non-prs chronic ulcer oth prt right foot w unsp severity 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 Office Visit 09/21/2018 7:53a [facility] Sweta L03.115 Cellulitis of at NIKIA Arroyo right lower limb 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 L97.519 Non-prs chronic ulcer oth prt right foot w unsp severity E11.621 Type 2 diabetes mellitus with foot ulcer Office Visit 08/24/2018 9:00a [facility], E11.22 Type 2 diabetes Endocrinology of [facility] [address] MD mellitus w diabetic chronic kidney disease N18.4 Chronic kidney disease, stage 4 (severe) 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 E78.5 Hyperlipidemia, unspecified I10 Essential (primary) hypertension Office Visit 07/20/2018 8:30a [facility] Thanh M14.672 [facility] at Alfredo Wood M.D. joint, left ankle and foot Assessments Date Code Description Provider 12/15/2018 L97.529 Non-pressure chronic ulcer of other [...] DNP , RN, ankle with unspecified severity [facility]- 10/29/2018 E11.622 Type 2 diabetes mellitus with other Camille Mccormick DNP , RN, skin ulcer [facility]- 10/29/2018 E11.42 Type 2 diabetes mellitus with Camille Mccormick DNP, RN, diabetic polyneuropathy [facility]- 10/29/2018 M10.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, right ankle and Camille Mccormick DNP, RN , foot [facility]- 10/27/2018 N18.4 Chronic kidney disease, stage 4 [...] limb Juan F Hurd MD 10/27/2018 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 09/29/2018 D72.829 Elevated white blood cell count, Vickie Josie Tubbs , FIRE DISPATCHER unspecified 09/29/2018 R74.8 Abnormal levels of other [...] preprocedural Gene Conley MD, FACC, cardiovascular examination [facility] 09/23/2018 E11.9 Type 2 diabetes mellitus without Gene Conley MD, FACC , complications [facility] 09/23/2018 E11.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 with [...] 09/21/2018 L97.519 Non-pressure chronic ulcer of other Vickiecatalina Tubbs NP part of right foot with unspecified severity 09/21/2018 E11.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 with Lidia Warren M.D. diabetic neuropathic arthropathy 09/21/2018 E11.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 with Vickie Josie Tubbs FIRE DISPATCHER diabetic neuropathic arthropathy 09/21/2018 L03.115 Cellulitis of [...] Wood M.D. foot Plan of Treatment Future Appointment(s):12/24/2018 11:00 am - Chantale Adan M.D. at [facility]/30/2018 10:30 am - Juan F Hurd MD at [facility] [address] Vmuahnxzly15/12/2019 8:40 am - Atul Monroy MD at [facility] [address]12/15/2018 - Ruben Jean-Baptiste MDL97.529 Non-pressure chronic ulcer of other part of left foot with unspecified severityFollow up:1 week Functional Status Description No Information Available Mental Status Description No Information Available Referrals Refer to Reason for Referral Status Appt Date Patient's Choice chronic right ankle wound Created ([phone] - Wound care center in [place] referral for right foot wound [facility] Right custom diabetic shoe with Closed rocker bottom [address] [facility] [address] [place], [place] [id number] [phone] Onofre Denson MD diabetic foot disease Created [address] [place] [address] [phone] Wound Clinic R heel ulcer Sent 10/29/[address] [place] [address] [phone] Matilda Caballero MD CKD-5, diabetes. Patient Notified 10/27/2018 [address] [facility] [address] [phone]
--- OUTSIDE RECORDS SUMMARY | 2019-01-29 12:43 | XMS REPORT | Continuity of Care Document ---
:1960 External Reference #:[id number] Author Name Ruben Jean-Baptiste MD (transmitted by agent of provider Laurence Hood) Address [address] [place] [address] Care Team Providers Name Role Phone Deborah Pastor MD - Care Team Information Chinese Herbalist [phone] Family Medicine Problems Active Problems Provider Date [...] foot Type 2 diabetes mellitus with diabetic uRben Jean-Baptiste MD Onset: 10/08/2018 neuropathic arthropathy Ulcer of foot Ruben Jean-Baptiste MD Onset: 12/24/2018 Social History Type Date Description Comments Sex Unknown ETOH Use Occasionally consumes alcohol Tobacco Use Start: Unknown End: Patient is a former quit smoking 2007 Unknown smoker Recreational Drug Use Denies Drug Use Smoking Status Reviewed: 01/07/19 Patient is a former quit smoking 2008 [...] by mouth every day Unknown 100mg Tablets Doxycycline Unknown History Medications Lisinopril take once daily 30tabs [...] Available Vital Signs Date Vital Result Comment 01/07/2019 1:55pm Height 65 inches 5'5" Weight 250.00 lb BP Systolic 126 mmHg BP Diastolic 66 mmHg Body Temperature 97.3 F BMI (Body Mass Index) 41.6 kg/m2 12/30/2018 10:52am Height 64 inches 5'4" Weight 240.00 lb Heart Rate 82 /min BP Systolic Sitting 143 mmHg left arm reg cuff BP Diastolic Sitting 78 mmHg left arm reg cuff O2 % BldC Oximetry 100 % room air BMI (Body Mass Index) 41.2 kg/m2 Results Test Acquired Date Facility Test Result H/L Range Note Laboratory test 12/27/2018 [facility] Erythrocyte Sed 120 mm/Hr High 0-[address] [place] [address] [phone] CBC Auto Diff 12/27/2018 [facility] White Blood 11.5 High 3.5- 10.[address] Count 10^3/[place] [address] [phone] Red Blood Count 3.68 10^6/uL Low 3.70-4.87 [...] Blood Cells % 0.0 Laboratory test 12/27/2018 [facility] Prealbumin 15 mg/dL Low 18-38 finding [address] [place] [address] [phone] C Reactive Protein 25.68 mg/L High <8.01 Comp Metabolic 12/27/2018 [facility] Sodium 138 mmol/L Normal 135-145 Panel [address] [place] [address] [phone] Potassium 4.1 mmol/L Normal 3.5-5.0 Chloride 102 [...] Egfr 27.1 >60 1 Laboratory test 12/27/2018 [facility] Creatinine Random 76.67 mg /dL finding 101 [facility] [place] [address] [phone] Total Protein Random Urine 150 mg/dL Urinalysis Profile 12/27/2018 [facility] Urine Color Yellow [address] [place] [address] [phone] Urine Appearance Clear Urine Specific [place] 1.010 Normal 1.010-1.030 Urine pH 6.0 Normal [...] Present Abnormal Absent Urine Culture And 12/27/2018 [facility] Urine Culture SEE RESULT [address] [place], [place] [id number] [phone] Laboratory test 12/27/2018 [facility] Hemoglobin A1c 6.3 % High 4.0- [address] (Glyco HGB) 5.6 [place] [address] [phone] [place]/Lambda Free 12/27/2018 [facility] [place] Free 19.1 mg/dL Abnormal [address] [place] [address] [phone] Lambda Free Light Chain 10.4 mg/dL Abnormal 6 [place]/Lambda Free Light Chain 1.84 Abnormal 7 Protein 12/27/2018 [facility] Total 7.1 g/dL 6.3 - Electrophoresis DRIVE Protein(Pep) 7.9 [place] [address] [phone] Albumin 2.6 g/dL Abnormal 3.4-4.7 Alpha-1 Globulin 0.4 g/dL Abnormal 0.1-0.3 Alpha-2 Globulin 1.4 g/dL Abnormal 0.6-1.0 Beta Globulin 1.1 g/dL 0.7-1.2 Gamma Globulin 1.7 g/dL Abnormal 0.6-1.6 Albumin/Globulin Ratio 0.58 Impression See Comment 8 Laboratory test 12/27/2018 [facility] Ferritin 309.4 ng/mL High 11-[address] [place] [address] [phone] Iron & Iron 12/27/2018 [facility] Iron 34 g/dL Low 50-212 Binding Capacity [address] [place] [address] [phone] Unsaturated Iron Binding < 223 g/dL Total Iron Binding Capacity 238 g/dL Low 250-450 Transferrin 170 mg/dL Low 203-362 % Iron Saturation 14 % Low 15-55 Urine Culture And 11/25/2018 [facility] Urine Culture SEE RESULT [address] [place], [place] [id number] [phone] Urinalysis Profile 11/25/2018 [facility] Urine Color Yellow [address] [place] [address] [phone] Urine Appearance Cloudy Urine Specific [place] 1.012 Normal 1.010-1.030 Urine pH 6.0 Normal 5-9 Urine Urobilinogen Negative Negative Urine Ketones Negative Negative Urine Protein 2+(100 mg/dL) Abnormal Negative Urine Leukocytes 1+ Abnormal Negative Urine Blood Negative Negative * * Abnormal Negative 10 Urine Nitrite Negative Negative Urine Bilirubin Negative Negative Urine Glucose Negative Negative Urine White Blood Cell 2+(11-20/hpf) Abnormal Absent Urine Red Blood Cell Trace(0-2/hpf) Absent Urine Bacteria Absent Absent Urine Squamous Epithelial Cell Present Abnormal Absent Neph Routine 11/25/2018 [facility] Total Protein Random 171 mg/ dL 101 [facility] [place] [address] [phone] Creatinine Random Urine 86.90 mg/dL Inr/Protime 11/25/2018 [facility] Inr 2.29 High 0.82-1.09 11 [address] [place] [address] [phone] Laboratory test 11/25/2018 [facility] Ferritin 548.5 High 11- 307 finding 101 [facility] ng/[place] [address] [phone] Iron & Iron 11/25/2018 [facility] Iron 25 g/dL Low 50-212 Binding Capacity [address] [place] [address] [phone] Unsaturated Iron Binding < 185 g/dL Total Iron Binding Capacity 200 g/dL Low 250-450 Transferrin 143 mg/dL Low 203-362 % Iron Saturation 13 % Low 15-55 Basic Metabolic 11/25/2018 [facility] Sodium 139 mmol/L Normal 135-145 Panel [address] [place] [address] [phone] Potassium 4.1 mmol/L Normal 3.5-5.0 Chloride 101 mmol/L Normal 101-111 Co2 Carbon Dioxide 27 mmol/L Normal 22-32 Anion Gap 11 mmol/L Normal 2-11 Glucose 133 mg/dL High 70-100 Blood Urea Nitrogen 55 mg/dL High 6-24 Creatinine 2.47 mg/dL High 0.51-0.95 BUN/Creatinine Ratio 22.3 High 8-20 Calcium 9.2 mg/dL Normal 8.6-10.3 Egfr Non- 20.0 >60 Egfr 24.2 >60 12 CBC Auto 11/25/2018 [facility] White Blood 12.7 10^3/uL High 3.5-10.[address] [place] [address] [phone] Red Blood Count 3.50 10^6/uL Low 3.70-4.87 [...] Red Blood Cells % 0.1 Protein 11/25/2018 [facility] Total 6.9 g/dL 6.3 - Electrophoresis [address] Protein(Pep) 7.9 [place] [address] [phone] Albumin 2.4 g/dL Abnormal 3.4-4.7 Alpha-1 Globulin 0.5 g/dL Abnormal 0.1-0.3 Alpha-2 Globulin 1.4 g/dL Abnormal 0.6-1.0 Beta Globulin 1.3 g/dL Abnormal 0.7-1.2 Gamma Globulin 1.4 g/dL 0.6-1.6 Albumin/Globulin Ratio 0.53 Impression See Comment 13 [place]/Lambda Free 11/25/2018 [facility] [place] Free 22.0 mg/dL Abnormal 14 Light Chains Ser [address] [place] [address] [phone] Lambda Free Light Chain 11.7 mg/dL Abnormal 15 [place]/Lambda Free Light Chain 1.88 Abnormal 16 Inr/Protime 11/09/2018 [facility] Inr 2.00 High 0.82-1.[address] [place] [address] [phone] Inr/Protime 10/29/2018 [facility] Inr 2.55 High 0.82-1.[address] [place] [address] [phone] Wound 10/29/2018 [facility] Wound/Misc SEE 19 Culture/Sensi [address] Culture[place] [address] Stain BELOW [phone] Laboratory 10/29/2018 [facility] Erythrocyte > 120 High 0-29 test finding [address] Sed Rate mm/[place] [address] [phone] CBC Auto Diff 10/29/2018 [facility] White Blood 8.6 Normal 3.5 -10.[address] Count 10^3/[place] [address] [phone] Red Blood Count 3.75 10^6/uL Normal 3.70-4.87 [...] Blood Cells % 0.1 Laboratory test 10/29/2018 [facility] Uric Acid 9.5 mg/dL High 2.3-6.[address] [place] [address] [phone] Prealbumin 21 mg/dL Normal 18-38 C Reactive Protein 30.27 mg/L High <8.01 Vitamin B12 379 pg/mL Normal 180-914 20 Protime W/ Inr 10/21/2018 [facility] Inr 1.96 High 0.82-1.[address] [place] [address] [phone] Protime W/ Inr 10/13/2018 [facility] Inr 2.47 High 0.82-1.[address] [place] [address] [phone] Urine 10/12/2018 [facility] Urine 70.[address] Creatinine mg/[place] [address] [phone] Ur Microalbumin (mg/L) 2109.4 mg/L Urine Microalbumin/Creatinine 2973.9 High <31 Comp Metabolic 10/12/2018 [facility] Sodium 141 mmol/L Normal 135-[address] [place] [address] [phone] Potassium 4.2 mmol/L Normal 3.5-5.0 Chloride 106 [...] Egfr Non- 19.3 >60 Egfr 23.3 >60 23 1 Because ethnic data is not always [...] : [address]: Radha Staff,Doctor Acct: [id number] Unit: [id number] AGE: 58 Location: LAB Re12/27/18 SEX: F Status: REG REF SPEC: [id number] REY: 12/27/[address]: Juan F Hurd MD REQ: [id number] RECD: 12/27/18 STATUS:COMP _ SOURCE: URINE SPDESC: ORDERED: Urine Culture Procedure Result Reported Site Urine Culture Final 12/29/18- 0854 ML No growth of clinically significant organisms * ML - Main Lab . END OF REPORT DEPARTMENT OF PATHOLOGY, [address] [place] [address] Rylan Mcleod M.D. Director [facility] # [id number] 4 Therapeutic target for the treatment of diabetes mellitus patients is <7% HBA1C, and in selective patients <6.0%. Please refer to [place] [employer] diabetic care guidelines for further information. 5 REFERENCE VALUE 0.3300-1.94 6 REFERENCE VALUE 0.5700-2.63 7 Elevated free light chain ratios between 1.66 and 3.00 may occur due to polyclonal hypergammaglobulinemia or impaired renal clearance. An isolated increased free light chain ratio in this range should be interpreted with caution, and clinical correlation is recommended. REFERENCE VALUE 0.2600-1.65 Test Performed by: [facility] [place] [address] High Density Press Operator: Steve Mcallister M.D. Ph.D.; CLIA# [id number] 8 RESULT: Polyclonal hypergammaglobulinemia Test Performed by: [facility] [place] [address] High Density Press Operator: Steve Mcallister M.D. Ph.D.; CLIA# [id number] 9 SEE RESULT BELOW Name: GEMMA JON : [address]: Cayla Cervantes MD Acct: [id number] Unit: [id number] AGE: 58 Location: LAB Re11/25/18 SEX: F Status: REG REF SPEC: [id number] REY: 11/25/[address]: Juan F Hurd MD REQ: [id number] RECD: 11/25/18 STATUS: COMP _ SOURCE: URINE SPDESC: ORDERED: Urine Culture Procedure Result Reported Site Urine Culture Final 11/26/18- 1212 ML No growth of clinically significant organisms * ML - Main Lab . END OF REPORT DEPARTMENT OF PATHOLOGY, [address] [place] [address] Rylan Mcleod M.D. Director [facility] # [id number] 10 *Ascorbic acid is present which may interfere with detection of blood. 11 Standard intensity warfarin therapeutic range: 2.0-3.0 High intensity warfarin therapeutic range: 2.5-3.5 12 Because ethnic data is not always readily [...] 15-29 5 Kidney failure <15 (or dialysis) 13 RESULT: No apparent monoclonal protein on serum electrophoresis. Test Performed by: [facility] [address] [place] [address] High Density Press Operator: Steve Mcallister M.D. Ph.D.; CLIA# [id number] 14 REFERENCE VALUE 0.3300-1.94 15 REFERENCE VALUE 0.5700-2.63 16 Elevated free light chain ratios between 1.66 and 3.00 may occur due to polyclonal hypergammaglobulinemia or impaired renal clearance. An isolated increased free light chain ratio in this range should be interpreted with caution, and clinical correlation is recommended. REFERENCE VALUE 0.2600-1.65 Test Performed by: [facility] [address] [place] [address] High Density Press Operator: Steve Mcallister M.D. Ph.D.; CLIA# [id number] 17 Standard intensity warfarin therapeutic range: 2.0-3.0 High intensity warfarin therapeutic range: 2.5-3.5 18 Standard intensity warfarin therapeutic range: 2.0-3.0 High intensity warfarin therapeutic range: 2.5-3.5 19 SEE RESULT BELOW Name: GEMMA JON : [address]: Camille Mccormick NP Acct: [id number] Unit: [id number] AGE: 58 Location: WOUND Re10/29/18 SEX: F Status: REG REF SPEC: [id number] REY: 10/29/18-[address]: Camille Mccormick SEAT MAKER REQ: [id number] RECD: 10/29/18 STATUS: NANDA BISWAS DR: Cayla Cervantes MD _ SOURCE: WOUND SPDESC: ORDERED: Culture Stain COMMENTS: RIGHT ANKLE Procedure Result Reported Site Wound/Misc Gram Stain Final 10/29/18- 1722 ML 3+ Neutrophils No Organisms Seen Wound/Misc Culture Final 10/31/18- 0854 ML Organism 1 NORMAL MAYI Quantity 1+ * ML - Main Lab . END OF REPORT DEPARTMENT OF PATHOLOGY, [address] [place] [address] Rylan Mcleod M.D. Director [facility] # [id number] 20 Normal Range 180 to 914 Indeterminate Range 145 to 180 Deficient Range <145 21 Standard intensity warfarin therapeutic range: 2.0-3.0 High intensity warfarin therapeutic range: 2.5-3.5 22 Standard intensity warfarin therapeutic range: 2.0-3.0 High intensity warfarin therapeutic range: 2.5-3.5 23 Because ethnic data is not always readily [...] dialysis) Procedures Date Code Description Status 12/24/2018 97600 Negative Pressure Wound Therapy Less Than 50 Square CM Completed 12/15/2018 85589 Negative Pressure Wound Therapy Less Than 50 Square CM Completed 12/08/2018 30461 Negative Pressure Wound Therapy Less Than 50 Square CM Completed 12/01/2018 17816 Negative Pressure Wound Therapy Less Than 50 Square CM Completed 11/17/2018 19149 Negative Pressure Wound Therapy Less Than 50 Square CM Completed 11/15/2018 35709 Negative Pressure Wound Therapy Less Than 50 Square CM Completed 11/09/2018 33472 Negative Pressure Wound Therapy Less Than 50 Square CM Completed 10/29/2018 35767 Removal Devitalization Tissue Wound Less Than Equal 20 Completed Square CM 09/29/2018 45646 Inject/Drain Joint/Bursa Major W/O US Completed 09/23/2018 72267 Negative Pressure Wound Therapy Less Than 50 Square CM Completed 09/23/2018 70687 Treadmill Interp/Report Only Completed 09/23/2018 59151 Stress Test Supervsn W/Out I/R Completed 09/23/2018 84047 Partial Excision, Bone;Fibula Completed 09/23/2018 80321 Partial Excision, Bone;Fibula Completed 07/30/2017 994332240 Diabetic Foot Exam Completed Medical Devices Description No Information Available Encounters Type Date Location Provider Dx Diagnosis Office Visit 01/07/2019 [facility] Jerilyn, E11.621 Type 2 diabetes 2:00p at [facility] mellitus with foot ulcer 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 Office Visit 12/30/2018 10:30a [facility] Nephrology Juan F A. I12.9 Hypertensive MD Vickey chronic kidney disease w stg 1-4/unsp chr kdny E11.22 Type 2 diabetes mellitus w diabetic chronic kidney disease N18.4 Chronic kidney disease, stage 4 (severe) I10 Essential (primary) hypertension E78.5 Hyperlipidemia, unspecified D64.9 Anemia, unspecified Office Visit 12/24/2018 [facility] Jerilyn, L97.529 Non-pressure 11:00a Orthopedics at chronic ulcer ot [place] prt left foot w unsp severity E11.621 Type 2 diabetes mellitus with foot ulcer 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 Office Visit 11/25/2018 11:00a [facility] Nephrology Juan F A. I12.9 Hypertensive MD Vickey chronic kidney disease w stg 1-4/unsp chr kdny N18.4 Chronic kidney disease, stage 4 (severe) E11.22 Type 2 diabetes mellitus w diabetic chronic kidney disease D64.9 Anemia, unspecified Office Visit 10/27/2018 9:00a [facility] Nephrology Juan F A. N18.4 Chronic kidney MD Vickey disease, stage 4 (severe) I12.9 Hypertensive chronic kidney disease w stg 1-4/unsp chr kdny E11.22 Type 2 diabetes mellitus w diabetic chronic kidney disease Z68.41 Body mass index (BMI) 40.0-44.9, adult E11.621 Type 2 diabetes mellitus with foot ulcer I10 Essential (primary) hypertension D64.9 Anemia, unspecified L03.115 Cellulitis of right lower limb Z79.4 snf (current) use of insulin Office Visit 10/22/2018 9:40a [facility] Eliana, L97.419 Non-prs chr Endocrinology of [facility] ulcer of right heel and midfoot w unsp severt E11.621 Type 2 diabetes mellitus with foot ulcer E11.21 Type 2 diabetes mellitus with diabetic nephropathy I10 Essential (primary) hypertension Z79.4 snf (current) use of insulin N18.3 Chronic kidney disease, stage 3 (moderate) Office Visit 10/11/2018 12:41p [facility] Internal Sristee I26.99 Other pulmonary Medicine - Suite MD Helen embolism without R acute cor pulmonale E11.621 Type 2 diabetes mellitus with foot ulcer I10 Essential (primary) hypertension Office Visit 10/04/2018 6:20a [facility] Kelechi Weaver03.115 Cellulitis of Stefani Tapia M.D. 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 R79.89 Other specified abnormal findings of blood chemistry I10 Essential (primary) hypertension Z86.711 Personal history of pulmonary embolism Office Visit 10/02/2018 9:12a [facility] Thanh Weaver03.115 [facility] 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 D64.9 Anemia, unspecified R74.8 Abnormal levels of other serum enzymes N17.9 Acute kidney failure, unspecified I10 Essential (primary) hypertension I26.99 Other pulmonary embolism without acute cor pulmonale Office Visit 10/01/2018 9:12a [facility] Thanh Weaver03.115 [facility] 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 R74.8 Abnormal levels of other serum enzymes N17.9 Acute kidney failure, unspecified I10 Essential (primary) hypertension I26.99 Other pulmonary embolism without acute cor pulmonale Office Visit 09/30/2018 9:11a [facility] Thanh Weaver03.115 [facility] 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 D64.9 Anemia, unspecified R79.1 Abnormal coagulation profile R74.8 Abnormal levels of other serum enzymes N17.9 Acute kidney failure, unspecified I10 Essential (primary) hypertension I26.99 Other pulmonary embolism without acute cor pulmonale Office Visit 09/28/2018 9:11a Hiral Law L03.115 [facility] 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 D64.9 Anemia, unspecified R79.1 Abnormal coagulation profile R74.8 Abnormal levels of other serum enzymes I10 Essential (primary) hypertension N17.9 Acute kidney failure, unspecified I26.99 Other pulmonary embolism without acute cor pulmonale Office Visit 09/27/2018 9:10a Hiral Law L03.115 [facility] 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 D64.9 Anemia, unspecified R79.1 Abnormal coagulation profile R74.8 Abnormal levels of other serum enzymes N17.9 Acute kidney failure, unspecified I10 Essential (primary) hypertension I26.99 Other pulmonary embolism without acute cor pulmonale Office Visit 09/26/2018 [facility] Dick E11.610 Type 2 diabetes 9:10a Assarlet coleman DO mellitus w Hospitalists diabetic neuropathic arthropathy L03.115 Cellulitis of right lower limb N17.9 Acute kidney failure, unspecified R74.8 Abnormal levels of other serum enzymes D64.9 Anemia, unspecified D68.59 Other primary thrombophilia I10 Essential (primary) hypertension Office Visit 09/25/2018 [facility] Ines Dick E11.610 Type 2 diabetes 9:07a Assarlet coleman DO mellitus w Hospitalists diabetic neuropathic arthropathy L03.115 Cellulitis of right lower limb R74.8 Abnormal levels of other serum enzymes N17.9 Acute kidney failure, unspecified I10 Essential (primary) hypertension I26.99 Other pulmonary embolism without acute cor pulmonale R79.1 Abnormal coagulation profile Office Visit 09/24/2018 9:06a [facility] M14.671 [facility] Andersen DO joint, right Hospitalists ankle and foot L03.115 Cellulitis of right lower limb R74.8 Abnormal levels of other serum enzymes N17.9 Acute kidney failure, unspecified I10 Essential (primary) hypertension I26.99 Other pulmonary embolism without acute cor pulmonale R79.1 Abnormal coagulation profile Office Visit 09/24/2018 8:45a [facility] Kelechi Thomas L03.115 Cellulitis of For Fei Tapia M.D. 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 Office Visit 09/23/2018 [facility] E11.610 Type 2 diabetes 9:06a Assoc,arlet Andersen DO mellitus w Hospitalists diabetic neuropathic arthropathy L03.115 Cellulitis of right lower limb R74.8 Abnormal levels of other serum enzymes N17.9 Acute kidney failure, unspecified I10 Essential (primary) hypertension I26.99 Other pulmonary embolism without acute cor pulmonale R79.1 Abnormal coagulation profile Office Visit 09/22/2018 [facility] E11.610 Type 2 diabetes 9:06a Assoc,arlet Andersen DO mellitus w Hospitalists diabetic neuropathic arthropathy L03.115 Cellulitis of right lower limb R74.8 Abnormal levels of other serum enzymes N17.9 Acute kidney failure, unspecified I10 Essential (primary) hypertension I26.99 Other pulmonary embolism without acute cor pulmonale R79.1 Abnormal coagulation profile Office Visit 09/22/2018 11:12a [facility] Kelechi Martha L03.115 Cellulitis of For Fei Tapia M.D. right lower limb Diseases 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 N18.5 Chronic kidney disease, stage 5 L97.519 Non-prs chronic ulcer oth prt right foot w unsp severity E11.621 Type 2 diabetes mellitus with foot ulcer Office Visit 09/22/2018 7:54a [facility] Sweta Wolf L97.519 Non-prs chronic at [facility] ulcer oth prt right foot w unsp severity M79.661 Pain in right lower leg L53.9 Erythematous condition, unspecified Office Visit 09/21/2018 [facility] Lidia E78.5 Hyperlipidemia, 9:05a arlet Heard M.D. 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 I12.9 Hypertensive chronic kidney disease w stg 1-4/unsp chr kdny E11.22 Type 2 diabetes mellitus w diabetic chronic kidney disease N18.9 Chronic kidney disease, unspecified Office Visit 09/21/2018 8:30a Wound [facility] Vickie Galindo E11.622 Type 2 diabetes Center AT [facility] Tubbs, [employer] mellitus with other skin ulcer L97.519 Non-prs chronic ulcer oth prt right foot w unsp severity 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 Office Visit 09/21/2018 7:53a [facility] Sweta L03.115 Cellulitis of at [place], [place] right lower limb 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 joint, left ankle and foot Assessments Date Code Description Provider 01/07/2019 E11.621 Type 2 diabetes mellitus with foot Ruben Jean-Baptiste MD ulcer 01/07/2019 E11.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 with Ruben Jean-Baptiste MD diabetic neuropathic arthropathy 12/30/2018 I12.9 Hypertensive chronic kidney disease Juan F Hurd MD with stage 1 through stage 4 chronic kidney disease, or unspecified chronic kidney disease 12/30/2018 E11.22 Type 2 diabetes mellitus with Juan F Hurd MD diabetic chronic kidney disease 12/30/2018 N18.4 Chronic kidney disease, stage 4 Juan F Hurd MD (severe) 12/30/2018 I10 Essential (primary) hypertension Juan F Hurd MD 12/30/2018 E78.5 Hyperlipidemia, unspecified Juan F Hurd MD 12/30/2018 D64.9 Anemia, unspecified Juan F Hurd MD 12/24/2018 L97.529 Non-pressure chronic ulcer of other Ruben Jean-Baptiste MD part of left foot with unspecified severity 12/24/2018 E11.621 Type 2 diabetes mellitus with foot Ruben Jean-Baptiste MD ulcer 12/24/2018 E11.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 with Ruben Jean-Baptiste MD diabetic neuropathic arthropathy 12/15/2018 L97.529 Non-pressure [...] diabetic chronic kidney disease 11/25/2018 D64.9 Anemia, eloified Juan F Hurd MD 11/17/2018 E11.621 Type [...] DNP , RN, ankle with unspecified severity [facility]- 10/29/2018 E11.622 Type 2 diabetes mellitus with other Camille Mccormick DNP , RN, skin ulcer [facility]- 10/29/2018 E11.42 Type 2 diabetes mellitus with Camille Mccormick DNP, RN, diabetic polyneuropathy [facility]- 10/29/2018 M10.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, right ankle and Camille Mccormick DNP, RN , foot [facility]- 10/27/2018 N18.4 Chronic kidney disease, stage [...] limb Juan F Hurd MD 10/27/2018 Z79.4 snf (current) use of insulin Juan F Hurd [...] (primary) hypertension Atul Monroy MD 10/22/2018 Z79.4 snf (current) use of insulin Atul Monroy MD [...] 09/30/2018 Z47.89 Encounter for other orthopedic Roshni Magdalena, FEMI-C aftercare 09/30/2018 L03.115 Cellulitis of right [...] Type 2 diabetes mellitus with Vickie Tubbs, SEAT MA[employer] diabetic neuropathic arthropathy 09/29/2018 R79.1 Abnormal coagulation profile Thanh Cadena M.D. 09/29/2018 D72.829 Elevated white blood cell count, Vickie Josie Tubbs , SEAT MA[employer]ER unspecified 09/29/2018 R74.8 Abnormal levels of other [...] Cadena M.D. 09/28/2018 N17.9 Acute kidney failure, eloified Thanh Cadena M.D. 09/28/2018 I26.99 Other pulmonary [...] Senner, DO 09/26/2018 I10 Essential (primary) hypertension Myaelin Senner, DO 09/25/2018 E11.610 Type 2 diabetes [...] preprocedural Gene Conley MD, FACC, cardiovascular examination [facility] 09/23/2018 E11.9 Type 2 diabetes mellitus without Gene Conley MD, FACC , [facility] 09/23/2018 E11.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 with [...] ulcer 09/23/2018 R79.1 Abnormal coagulation profile Mayelin Jamesner, DO 09/23/2018 E11.621 Type 2 diabetes mellitus [...] 09/22/2018 N17.9 Acute kidney failure, unspecified Mayelin Senadriano, DO 09/22/2018 I10 Essential (primary) hypertension Mayelin [...] L97.519 Non-pressure chronic ulcer of other Vickie Galindo Arley, SEAT MAKER part of right foot with unspecified severity 09/21/2018 E11.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 with Lidia Warren M.D. diabetic neuropathic arthropathy 09/21/2018 E11.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 with Vickie Galindo Tubbs, SE[employer] diabetic neuropathic arthropathy 09/21/2018 L03.115 Cellulitis of [...] am - Juan F Hurd MD at [facility] Wkoqkgcjcd46/12/2019 8:40 am - Atul Monroy MD at [facility]01/07/2019 - Ruben Jean-Baptiste MDE11.621 Type 2 diabetes mellitus with foot ulcerFollow up:Follow Up: after testing / imaging is completed Please check on status of right foot MRIE11.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 with diabetic neuropathic arthropathy Functional Status Description No Information Available Mental Status Description No Information Available Referrals Refer to Dr Reason for Referral Status Appt Date Wound Clinic R heel ulcer Created [address] [place] [address] [phone] Patient's Choice chronic right ankle wound Sent [phone] - Wound care center in [place] referral for right foot wound Sent Message [facility] Right custom diabetic shoe with Closed rocker bottom [address] [place] [address] [phone] Onofre Denson MD diabetic foot disease Created [address] [place] [address] [phone] Wound Clinic R heel ulcer Sent 10/29/2018 [address] [place] [address] [phone] Matilda Caballero MD CKD-5, diabetes. Patient Notified 10/27/2018 [address] [place] [id number] [phone]
--- NOTE | 2019-01-29 14:19 | ED ---
Lower Extremity - HPI Summary HPI Summary: This patient is a 58 year old F presenting to [facility] with a chief complaint of right knee and ankle pain since 1235 on 01/26/19. Symptoms aggravated by nothing. Symptoms alleviated by nothing. Patient reports right foot very swollen and draining due to diabetic ulcer to right outer ankle and charcot foot. Pt reports pain in ankle and up near right knee is swollen and painful though she is not aware of an injury. Pt does report she has been on her feet more than usual and her grandkids were bumping into her right leg. Pt went to wound clinic in [facility]. - History of Current Complaint Chief Complaint: EDExtremityLower Stated Complaint: WOUND ON RIGHT LEG PER PT Time Seen by Provider: 01/29/19 14:11 Hx Obtained From: Patient Onset/Duration: Days Pain Intensity: 10 Pain Scale Used: 0-10 Numeric Timing: Constant Associated Signs And Symptoms: Positive: Swelling, Knee Pain, Other - draining, ankle pain Aggravating Factor(s): Nothing Alleviating Factor(s): Nothing - Allergies/Home Medications Allergies/Adverse Reactions: Allergies Allergy/AdvReac Type Severity Reaction Status Date / Time No Known Allergies Allergy Verified 01/29/19 12:35 Home Medications: Home Medications Chlorthalidone TAB* [Hygroton TAB*] 25 mg PO DAILY 01/29/19 [History Confirmed 01/29/19] Colchicine* [Colcrys*] 0.6 mg PO DAILY PRN 01/29/19 [History Confirmed 01/29/19] Labetalol TAB* [Trandate TAB*] 200 mg PO BID 01/29/19 [History Confirmed ] Warfarin Sodium [Jantoven] 2.5 mg PO 1700 01/29/19 [History Confirmed 01/29/19] PMH/Surg Hx/FS Hx/Imm Hx Endocrine/Hematology History: Reports: Hx Anticoagulant Therapy - for Hx PE, coumadin , Hx Diabetes, Hx Anemia Denies: Hx Thyroid Disease Cardiovascular History: Reports: Hx Embolism - Pulmonary Embolism, Hx Hypercholesterolemia, Hx Hypertension - controlled with meds Denies: Hx Coronary Artery Disease, Hx Pacemaker/ICD Respiratory History: Reports: Hx Pulmonary Embolism - in the past Denies: Hx Asthma, Hx Chronic Obstructive Pulmonary Disease (COPD) GI History: Denies: Hx Ulcer History: Reports: Hx Chronic Renal Failure, Other Problems/Disorders - Reports kidney problems Denies: Hx Kidney Stones Musculoskeletal History: Reports: Hx Arthritis - possible RA in hands, Hx Rheumatoid Arthritis Sensory History: Reports: Hx Cataracts - right eye, Hx Contacts or Glasses - glasses for reading, Hx Macular Degeneration, Hx Vision Problem - Retinal hemorrhage Denies: Hx Deafness, Hx Hearing Aid Opthamlomology History: Reports: Hx Cataracts - right eye, Hx Contacts or Glasses - glasses for reading, Hx Macular Degeneration, Hx Vision Problem - Retinal hemorrhage Neurological History: Denies: Hx Dementia Psychiatric History: Denies: Hx Panic Disorder, Hx Schizophrenia - Surgical History Surgery Procedure, Year, and Place: left foot- Surgery for diabetic ulcer. R leg- medical machinery. right ankle Hx Anesthesia Reactions: No - Immunization History Date of Tetanus Vaccine: UTD Date of Influenza Vaccine: 2017 Infectious Disease History: No Infectious Disease History: Denies: Hx Hepatitis, Hx Human Immunodeficiency Virus (HIV), Traveled Outside the [place] in Last 30 Days - Family History Known Family History: Positive: Cardiac Disease, Hypertension, Diabetes Family History: NO FAMILY H/O GOUT OR RA - Social History Alcohol Use: Rare Hx Substance Use: No Substance Use Type: Reports: None Hx Tobacco Use: Yes Smoking Status (MU): Former Smoker Type: Cigarettes Amount Used/How Often: smoked on and off for 15 years less than 1/2ppd Review of Systems Negative: Fever Positive: Other - ankle, knee, and foot swelling, ankle and knee pain All Other Systems Reviewed And Are Negative: Yes Physical Exam - Summary Physical Exam Summary: Appearance: The patient is well-nourished in no acute distress and in no acute pain. Skin: The skin is warm and dry, and skin color reflects adequate perfusion. HEENT: The head is normocephalic and atraumatic. The pupils are equal and reactive. The conjunctivae are clear and without drainage. Nares are patent and without drainage. Mouth reveals moist mucous membranes, and the throat is without erythema and exudate. The external ears are intact. The ear canals are patent and without drainage. The tympanic membranes are intact. Neck: The neck is supple with full range of motion and non-tender. There are no carotid bruits. There is no neck vein distension. Respiratory: Chest is non-tender. Lungs are clear to auscultation and breath sounds are symmetrical and equal. Cardiovascular: Heart is regular rate and rhythm. There is no murmur or rub auscultated. There is no peripheral edema and pulses are symmetrical and equal. Abdomen: The abdomen is soft and non-tender. There are normal bowel sounds heard in all four quadrants and there is no organomegaly palpated. Musculoskeletal: There is no back tenderness noted. diffuse swollen of lower leg , charcot deformity of foot, ulcer on lateral aspect of heel, tender proximal anterior tibial area on her ankle Neurological: Patient is alert and oriented to person, place and time. The patient has symmetrical motor strength in all four extremities. Cranial nerves are grossly intact. Deep tendon reflexes are symmetrical and equal in all four extremities. Psychiatric: The patient has an appropriate affect and does not exhibit any anxiety or depression. Triage Information Reviewed: Yes Vital Signs On Initial Exam: Initial Vitals Temp Pulse Resp BP Pulse Ox 97.7 F 97 16 120/66 99 01/29/19 12:31 01/29/19 12:31 01/29/19 12:31 01/29/19 12:31 01/29/19 12:31 Vital Signs Reviewed: Yes Procedures - Sedation Patient Received Moderate/Deep Sedation with Procedure: No Diagnostics - Vital Signs Vital Signs Temp Pulse Resp BP Pulse Ox 01/29/19 12:31 97.7 F 97 16 120/66 99 - Laboratory Result Diagrams: 01/29/19 14:43 01/29/19 14:43 Lab Statement: Any lab studies that have been ordered have been reviewed, and results considered in the medical decision making process. - Radiology Foot X-Ray Radiology Interpretation Completed By: Radiologist Summary of Radiographic Findings: Per radiologist,. 1. ANATOMIC ALIGNMENT OF RIGHT TIBIA INTRAMEDULLARY FIXATION PROSTHESIS. 2. RADIOGRAPHIC FINDINGS ARE CONSISTENT WITH THE CHRONIC APPEARANCE OF A CHARCOT FOOT. WITHOUT RADIOGRAPHICALLY APPARENT ACUTE ABNORMALITY. ED physician has reviewed this imaging report. Lower Extremity X-Ray Radiology Interpretation Completed By: Radiologist Summary of Radiographic Findings: Per radiologist,. 1. ANATOMIC ALIGNMENT OF RIGHT TIBIA INTRAMEDULLARY FIXATION PROSTHESIS. 2. RADIOGRAPHIC FINDINGS ARE CONSISTENT WITH THE CHRONIC APPEARANCE OF A CHARCOT FOOT. WITHOUT RADIOGRAPHICALLY APPARENT ACUTE ABNORMALITY. ED physician has reviewed this imaging report. - Ultrasound Venous Doppler Study Ultrasound Interpretation Completed By: Radiologist Summary of Ultrasound Findings: Per radiologist,. No sonographic evidence of deep vein thrombosis. ED physician has reviewed this imaging report. Lower Extremity Course/Dx - Course Course Of Treatment: Ms. Jon presented with increased pain and swelling in her right lower extremity. She is known to have an ulcer on her heel and being treated at [facility]. She was nontoxic in appearance with stable vitals were clearly had a diabetic foot ulcer. Labs are obtained and she was found to have a leukocytosis and a markedly elevated C reactive protein. She was given Zosyn IV here as well as some IV fluids and the hospitalists were contacted for admission. - Diagnoses Provider Diagnoses: Diabetic foot ulcer - Physician Notifications Discussed Care Of Patient With: Suha Campbell - hospitalist Time Discussed With Above Provider: 16:40 Instructed by Provider To: Admit As Inpatient Discharge ED - Sign-Out/Discharge Documenting (check all that apply): Patient Departure - admitted All imaging exams completed and their final reports reviewed: No Studies - Discharge Plan Condition: Stable Disposition: ADMITTED TO [facility] - Billing Disposition and Condition Condition: STABLE Disposition: Admitted to [facility] - Attestation Statements Document Initiated by Scribe: Yes Documenting Scribe: Ofelia Caba Provider For Whom Tyron is Documenting (Include Credential): Dr. Osvaldo Franco MD Scribe Attestation: Ofelia Mc, scribed for Dr. Osvaldo Franco MD on 01/29/19 at 2056. Scribe Documentation Reviewed: Yes Provider Attestation: The documentation as recorded by the Ofelia churchill accurately reflects the service I personally performed and the decisions made by me, Dr. Osvaldo Franco MD Status of Scribe Document: Viewed
[2019-01-29 14:56] LABS: ABS Basophils 0.1 10^3/ul (0-0.2); ABS Lymphocytes 1.2 10^3/ul (1.0-4.8); ABS Monocytes 1.1 10^3/ul (0-0.8); ABS Neutrophils 16.2 10^3/ul (1.5-7.7); Eosinophil % 0.2 %; Hematocrit 28 % (35-47); Hemoglobin 8.7 g/dL (12.0-16.0); Lymphocyte % 6.6 %; Mean Corpuscular HGB Conc 31 g/dL (31-36); Mean Corpuscular Hemoglobin 25 pg (27-31); Mean Corpuscular Volume 81 fL (80-97); Platelet Count 362 10^3/uL (150-450); Red Blood Count 3.45 10^6 /uL (3.70-4.87); Red Cell Distribution Width 19 % (10-15); White Blood Count 18.7 10^3/uL (3.5-10.8)
[2019-01-29 15:07] LABS: Albumin 3.1 g/dL (3.2-5.2); Albumin/Globulin Ratio 0.7 (1-3); BUN/Creatinine Ratio 15.3 (8-20); C Reactive Protein 378.94 mg/L (<8.01); Calcium 9.8 mg/dL (8.6-10.3); EGFR African American 19.8 (>60); EGFR Non-African American 16.3 (>60); Globulin 4.3 g/dL (2-4); Potassium 4.4 mmol/L (3.5-5.0); Total Bilirubin 0.6 mg/dL (0.2-1.0); Total Protein 7.4 g/dL (6.4-8.9)
[2019-01-29] MEDS ORDERED: Piperacillin/Tazobac ADVAN(*) 3.375 GM in NS 0.9% 100 ML* 100 ML IVPB ONE ×2 (16:37→17:19)
[2019-01-29] MEDS ORDERED: Colchicine* 0.6 MG TAB PO PRN (17:15)
[2019-01-29] MEDS ORDERED: Acetaminophen TAB* 325 MG PO PRN (17:22)
[2019-01-29] MEDS ORDERED: Dextrose 50% VIAL 50 ml IV PUSH PRN (17:22)
[2019-01-29 17:39] LABS: INR 1.68 (0.82-1.09)
[2019-01-29] MEDS ORDERED: Piperacillin/Tazobac (*) 3.375 GM BAG ONE (17:39)
[2019-01-29] MEDS ORDERED: Zosyn per Pharmacy* NOTE FOLLOW UP SCH (18:00)
[2019-01-29] MEDS ORDERED: Ergocalciferol CAP* 50000 UNIT PO SCH (18:00)
[2019-01-29] MEDS ORDERED: Warfarin TAB(*) 3 MG PO ONE (18:00)
[2019-01-29] MEDS: Morphine INJ* 2 MG/ML 1 ML SYRINGE (TWO MG - NEW SYRINGE VERSION) IV PRN (19:45)
[2019-01-29] MEDS: NS 0.9% 1000 ML** 1,000 ML IV SCH (19:52)
[2019-01-29] MEDS ORDERED: Zosyn 3.375 gm X 1 dose, then dose per Pharmacy IVPB ONE ×2 (20:00)
[2019-01-29] MEDS ORDERED: Ferrous Gluconate TAB* 324 MG TAB PO SCH ×2 (21:00→21:16)
[2019-01-29] MEDS: Insulin LISPRO* 1 UNITS UNIT SUBCUT SCH (21:24)
[2019-01-29] MEDS: Labetalol TAB* 200 MG PO SCH (21:24)
[2019-01-29] MEDS: Ferrous Gluconate TAB* 324 MG TAB PO SCH (21:24)
--- NOTE | 2019-01-29 22:01 | HP ---
CC: Dr. Pastor; Dr. Jean-Baptiste; Dr. Adan HISTORY AND PHYSICAL: DATE OF ADMISSION: 01/29/19 TIME OF EVALUATION: 5 p.m. PRIMARY CARE PHYSICIAN: Dr. Pastor. ORTHOPEDIST: Dr. Jean-Baptiste. CONSULTING ORTHOPEDIST: Dr. Adan. CHIEF COMPLAINT: "My foot is hurting." HISTORY OF PRESENT ILLNESS: Mrs. 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 Mrs. Jon was admitted to [facility] in September 2018. At that time, she had pain and ulceration to her right lateral malleolus. She was admitted under the impression of sepsis and diabetic foot infection and started initially on vancomycin and Zosyn. During that admission, the patient was seen by Orthopedics, General Surgery, and Infectious Disease. Cultures from that admission grew MSSA and she was discharged to [facility] to complete treatment with cephalexin for 21 more days after discharge. The patient states that she was doing well. The pain was improved and she is being following at the wound clinic at [place]. Of note, during the admission in September, there was a very concern for chronic osteomyelitis. She had an MRI of the lower extremity done at that time that showed postsurgical changes and findings most consistent with Charcot arthropathy in the hindfoot, mild bone marrow edema likely related to Charcot arthropathy, although osteomyelitis cannot to be excluded. The patient is also following with Dr. Jean-Baptiste as an outpatient and in the end of December, there was some concern because the wound had increased drainage and also there was more tunneling, so an MRI was requested, but the patient states that it was never approved. Over the past week, she has had some chills, some weakness and she started to have pain on her right ankle and she states that it is very unusual for her. Because of the neuropathy, she has almost no sensation on the area. As the amount of drainage continued to increase, she decided to come to the emergency room for further evaluation. She denies chest pain, palpitation, shortness of breath, fever, nausea, vomiting , or diarrhea. PAST MEDICAL HISTORY: 1. Anemia of chronic disease. 2. Morbid obesity with a BMI of 41. 3. Type 2 diabetes with diabetic neuropathy. 4. Bilateral Charcot foot. 5. 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 6. Type 2 diabetes. 7. Hypertension. 8. History of DVT and PE, on warfarin. 9. Gout. 10. Hyperlipidemia. 11. Osteoarthritis. 12. Right lower extremity diabetic foot ulcer, status post I and D and wound VAC placement in September 2018. MEDICATION LIST: 1. Acetaminophen 650 mg p.o. q.4 hours p.r.n. pain. 2. Allopurinol 100 mg p.o. daily with meal. 3. Chlorthalidone 25 mg p.o. daily. 4. Cholecalciferol 50,000 units p.o. weekly. 5. Colchicine 0.6 mg p.o. daily as needed for gout. 6. Famotidine 20 mg p.o. daily. 7. Ferrous gluconate 325 p.o. t.i.d. 8. Furosemide 20 mg p.o. daily. 9. Labetalol 200 mg p.o. b.i.d. 10. Semaglutide injected weekly. 11. Warfarin 2.5 mg p.o. daily. ALLERGIES: No known drug allergies. FAMILY HISTORY: Mother at age 67 due to complications of anesthesia. SOCIAL HISTORY: There is no history of tobacco, alcohol, or drug use. 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 Surrogate decision maker is her son, Flakito Jon, phone number is [phone]. REVIEW OF SYSTEMS: A 14-point review of systems was performed and all the pertinent negatives and positive findings are in the HPI. PHYSICAL EXAMINATION GENERAL: The patient is a pleasant, morbidly obese lady, sitting up on the ED stretcher, in no acute distress. VITAL SIGNS: Temperature 97.7, heart rate is 97, respiratory rate is 16, oxygen saturation is 99% on room air, and blood pressure is 120/66. HEENT: Pupils are equal. Moist mucous membranes. CHEST: Breath sounds present bilaterally with no added sounds. CVS: Normal S1, S2. Regular rate and rhythm. ABDOMEN: Obese, soft, nontender. Bowel sounds are present. EXTREMITIES: The patient has bilateral lower extremity edema, especially on the right. It is difficult to see erythema due to her skin color, but the skin is shiny. She has Charcot deformity on both feet, but especially on the right. There is a 2 x 3 cm ulcer anterior to her right lateral malleolus with significant yellow drainage, foul smelling. The edema and the shininess extend all the way to her mid leg. NEURO: She is alert and oriented x3. She is able to move all 4 extremities. She has decreased sensation on bilateral lower extremities, especially her feet. DIAGNOSTIC STUDIES/LAB DATA: The patient had a CBC that showed a WBC of 18.7, hemoglobin of 8.7, hematocrit 28, platelets of 262 with 86% neutrophils. Chemistries showed a sodium of 133, potassium 4.4, chloride 101, bicarb of 24, BUN of 45, creatinine of 2.94, glucose of 98. Lactic acid is 1.2. Calcium 9.8. LFTs showed a total bilirubin of 0.6, AST of 9, ALT of 6, alk phos 121 and her CRP is 378. No INR was sent in the emergency room. Right foot x-ray showed anatomic alignment of right tibia, intermittent lateral fixation prosthesis with findings consistent with chronic appearance of Charcot foot. Lower extremity x-ray showed similar findings and lower extremity Doppler showed no sonographic evidence of DVT. ASSESSMENT AND PLAN: Mrs. Jon is a 58-year-old female with a past medical history of morbid obesity, type 2 diabetes with diabetic neuropathy, Charcot foot, anemia of chronic disease, hyperlipidemia, DVT, PE, osteoarthritis, hypertension, CKD stage 4 to 5, admission with right foot diabetic ulcer and infection in September 2018 that presented to the emergency room with complaints of pain in the same area with increased drainage concerning for cellulitis and probable osteomyelitis. 1. Sepsis. The patient meets sepsis criteria with tachycardia and leukocytosis. There is no sign of severe sepsis at this time and as the patient' s blood pressure is normal and she already has significant lower extremity edema , we will hold off on fluid bolus. Source of infection is her foot cellulitis/ probable osteomyelitis. 2. Right diabetic foot infection with diabetic foot ulcers, cellulitis, and probable osteomyelitis. On her prior admission, the patient's culture grew MSSA and she was treated with Zosyn while in the hospital and then transitioned to complete 3 weeks of p.o. cephalexin and apparently she responded well to this regimen before, that is why we are going to start it at this time. We will continue daily dressing changes with iodinated packing and Orthopedic consultation was requested with Dr. Adan. We will order the MRI of the foot as there is significant concern for osteomyelitis, especially considering her CRP of almost 380. 3. Type 2 diabetes. The patient states that her glucose has been much better controlled with Ozempic. Her hemoglobin A1c was 6.3 in December 2018. She will have a lispro sliding scale for now and a family friend will bring her Ozempic to the hospital. 4. Hypertension. It is controlled at this time. We will continue her labetalol. We will hold diuretics for tonight as her renal function is a little worse, but we will probably resume it by tomorrow. 5. Chronic kidney disease, stage 4 to 5. The patient's creatinine is likely above her baseline at this time. We will hold off her diuretics, but as she is not hypotensive, we will not give the IV fluid bolus at this time and we will continue to monitor her renal function. 6. History of deep vein thrombosis and pulmonary embolism. We will check INR and dose her warfarin accordingly. 7. DVT prophylaxis. The patient has a score of 6 on the DVT Prophylaxis Risk Assessment Guide and she will be continued on her warfarin. 8. Code status is full. TIME SPENT: Approximately 60 minutes was spent with patient interview, medical records review, physical examination to complete the admission; more than half of this time was spent [id number] with the patient and coordination of care. [id number]/[facility] #: [id number] KATELYN
[2019-01-30] MEDS: Morphine INJ* 2 MG/ML 1 ML SYRINGE (TWO MG - NEW SYRINGE VERSION) IV PRN (00:34)
[2019-01-30] MEDS: ZOSYN 3.375 GM Q12H per EXTENDED INFUSION IVPB SCH ×4 (01:41→12:18)
[2019-01-30 05:46] LABS: ABS Eosinophils 0.2 10^3/ul (0-0.6); ABS Lymphocytes 1.1 10^3/ul (1.0-4.8); ABS Neutrophils 9.2 10^3/ul (1.5-7.7); Eosinophil % 1.4 %; Hematocrit 24 % (35-47); Hemoglobin 7.6 g/dL (12.0-16.0); Lymphocyte % 9.7 %; Mean Corpuscular HGB Conc 32 g/dL (31-36); Mean Corpuscular Hemoglobin 26 pg (27-31); Mean Corpuscular Volume 81 fL (80-97); Mean Platelet Volume 8.1 fL (7.4-10.4); Platelet Count 319 10^3/uL (150-450); Red Blood Count 2.92 10^6 /uL (3.70-4.87); Red Cell Distribution Width 19 % (10-15); White Blood Count 11.6 10^3/uL (3.5-10.8)
[2019-01-30 05:48] LABS: INR 1.66 (0.82-1.09)
[2019-01-30 05:59] LABS: BUN/Creatinine Ratio 16.6 (8-20); EGFR African American 19.2 (>60); EGFR Non-African American 15.9 (>60); Potassium 4.2 mmol/L (3.5-5.0)
[2019-01-30] MEDS: Allopurinol TAB* 100 MG PO SCH (08:28)
[2019-01-30] MEDS: Labetalol TAB* 200 MG PO SCH ×2 (08:28→21:04)
[2019-01-30] MEDS: Ferrous Gluconate TAB* 324 MG TAB PO SCH ×3 (08:29→21:04)
[2019-01-30] MEDS: Insulin LISPRO* 1 UNITS UNIT SUBCUT SCH ×4 (08:29→21:03)
[2019-01-30] MEDS: Heparin VIAL(*) 5000 UNITS/ML VIAL (FIVE THOUSAND) SUBCUT SCH ×3 (08:29→21:03)
[2019-01-30] MEDS: Famotidine TAB* 20 MG PO SCH (08:29)
--- NOTE | 2019-01-30 12:15 | CONS ---
ORTHOPEDIC CONSULTATION NOTE: DATE OF CONSULT: 01/30/19 CHIEF COMPLAINT: Right foot pain. HISTORY OF PRESENT ILLNESS: Ms. Jon is a 58-year-old morbidly obese female with extensive comorbidities. She has chronic end-stage kidney disease, bilateral Charcot foot, morbid obesity, diabetic neuropathy. She has had a right Charcot foot with a lateral open wound since September of this year. She was admitted in September and at that time cultures grew MSSA. She was discharged to [facility] and has been following up in the wound clinic at [facility]. The patient had MRI at that time that showed postsurgical changes and Charcot arthropathy without definitive osteomyelitis diagnosis. The patient saw Dr. Jean-Baptiste in the end of December, but MRI requested was not approved. The patient reports over the last 7 days she has had some chills, weakness and increased pain in the right ankle. Because of her neuropathy, she hardly ever has pain; therefore, she knew that something was worsening. She reports 4/10 deep aching pain in the lateral malleolus with increased drainage. She has been bearing weight on the foot and has been unable to wear the brace. She has been using crutches. PAST MEDICAL HISTORY: Anemia of chronic disease; morbid obesity; type 2 diabetes with diabetic neuropathy; bilateral Charcot foot; CKD, stage 4 to 5; type 2 diabetes; hypertension; history of DVT and PE, on warfarin; gout; hyperlipidemia; osteoarthritis; right diabetic foot ulcer. PAST SURGICAL HISTORY: Right foot I and D and wound VAC placement in September 2018. HOME MEDICATIONS: 1. Allopurinol 100 mg p.o. daily. 2. Chlorthalidone 25 mg p.o. daily. 3. Cholecalciferol 50,000 units p.o. weekly. 4. Colchicine 0.6 mg p.o. daily. 5. Famotidine 20 mg p.o. daily. 6. Ferrous gluconate 325 mg p.o. t.i.d. 7. Furosemide 20 mg p.o. daily. 8. Labetalol 200 mg p.o. b.i.d. 9. Semaglutide injected weekly. 10. Warfarin 2.5 mg p.o. daily. ALLERGIES: No known drug allergies. FAMILY HISTORY: Maternal anesthesia complications. 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 No tobacco, alcohol, or recreational drugs. Her surrogate decision maker is her son Flakito Jon, [phone]. She has been ambulating with crutches. REVIEW OF SYSTEMS: Fourteen systems were reviewed with the patient. Positive for the recent chills, right foot pain, right foot drainage. Negative for chest pain, shortness of breath, nausea, vomiting, headache, or dizziness. Otherwise, the patient reports review of systems is negative or not relevant. PHYSICAL EXAM: Vitals: Temperature 98.5, pulse 86, blood pressure 122/52, respiratory rate 18, O2 saturation 95% on room air. General: The patient is a morbidly obese female, in no apparent distress, alert and oriented x3, pleasant mood and appropriate affect. Gait: The patient's gait is not assessed. HEENT : Atraumatic, normocephalic. Pupils are equal and reactive to light. Heart: S1, S2. Regular rate and rhythm. Lungs: Clear to auscultation. Abdomen: Rounded, soft, nontender. Right lower extremity: The patient's skin has a small less than 0.5 cm opening along the lateral malleolus. There is foul smelling, copious amounts of serous drainage. She has edema up to her mid calf. She has an enlarged, swollen Charcot foot. Palpable 2+ DP pulse. Decreased sensation to light touch in a stocking distribution. DIAGNOSTIC STUDIES/LAB DATA: On 01/29/19, white blood cells 18.7 down to 11.6 today, hematocrit 28 to 24, platelet count 319. INR 1.66. Sodium 134, BUN and creatinine 50 and 3.02. There is a Doppler from 01/29/19 showing no evidence of DVT. There is an x-ray showing visible hardware in the tibia. Charcot foot is visualized. MRI of the right ankle is pending. ASSESSMENT AND PLAN: Ms. Jon is a 58-year-old female with morbid obesity, type 2 diabetes, diabetic neuropathy, Charcot foot, and a chronic draining diabetic ulcer of the right ankle. The patient and I discussed that she will continue IV antibiotics. We discussed that this wound is chronic and she likely has osteomyelitis. We discussed that she may need a washout of the area. She understands that I feel she may end up with amputation of this foot and ankle. The patient is willing to have a washout here, but reports if she had anything like an amputation, she would travel to [facility] instead of having it done here. For now, we will have her on the IV antibiotics with frequent dressing changes. She should be nonweightbearing on that extremity. Dr. Wood or Dr. Jean-Baptiste, one of our foot and ankle specialists will see the patient tomorrow on 01/31/19 to develop treatment plan with her. If she refuses surgery at [facility], she can decide on future transfer to another facility. If she does have a washout here, we would need her off of the warfarin with INR near 1.0. [id number]/[facility] #: [id number] [facility]
--- NOTE | 2019-01-30 15:28 | PN ---
Subjective Date of Service: 01/30/19 Interval History: HOSPITALIST PROGRESS NOTE Patient seen and examined at bedside. Care reviewed and d/w Mecca Thompson RN. She feels a little better today. Right foot pain is less intense. Tolerating diet well, denies N/V/D. Family History: Unchanged from Admission Social History: Unchanged from Admission Past Medical History: Unchanged from Admission Objective Active Medications: Acetaminophen (Tylenol Tab*) 650 mg PO Q4H PRN PRN Reason: FEVER/PAIN Acetaminophen (Tylenol Tab*) 650 mg PO Q6H PRN PRN Reason: MILD PAIN or TEMP > 100.4 Allopurinol (Zyloprim Tab*) 100 mg PO DAILY WITH MEAL [facility] Last Admin: 01/30/19 08:28 Dose: 100 mg Colchicine (Colcrys*) 0.6 mg PO DAILY PRN PRN Reason: Gout Dextrose (Dextrose 50% Vial 50 Ml*) 25 ml IV PUSH .FOR FS < 60 - SS PRN PRN Reason: FS < 60 Ergocalciferol (Drisdol Cap*) 50,000 unit PO WEEKLY [facility] Famotidine (Pepcid Tab*) 20 mg PO DAILY [facility] Last Admin: 01/30/19 08:29 Dose: 20 mg Ferrous Gluconate (Fergon Tab*) 324 mg PO TID [facility] Last Admin: 01/30/19 14:37 Dose: 324 mg Heparin Sodium (Porcine) (Heparin Vial(*)) 5,000 units SUBCUT Q8HR [facility] Last Admin: 01/30/19 14:37 Dose: 5,000 units Sodium Chloride (Ns 0.9% 1000 Ml) 1,000 mls @ 75 mls/hr IV PER RATE [facility] Last Admin: 01/29/19 19:52 Dose: 75 mls/hr Piperacillin Sod/Tazobactam (Sod 3.375 gm/ Sodium Chloride) 100 mls @ 25 mls/ hr IVPB Q12H [facility] Last Admin: 01/30/19 12:18 Dose: 25 mls/hr Insulin Human Lispro (Humalog*) 0 units SUBCUT ACHS [facility]; Protocol Last Admin: 01/30/19 12:19 Dose: 3 units Labetalol HCl (Trandate Tab*) 200 mg PO BID [facility] Last Admin: 01/30/19 08:28 Dose: 200 mg Morphine Sulfate (Morphine Inj (Syringe))*) 2 mg IV Q3H PRN PRN Reason: SEVERE PAIN Last Admin: 01/30/19 00:34 Dose: 2 mg Semaglutide [Ozempic (] 1 Units)) 1 units INJ Fr@0900 [facility] Pharmacy Consult (Zosyn Per Pharmacy*) 1 note FOLLOW UP .ZOSYN PER PHARMACY [facility] Warfarin Sodium (Coumadin Tab(*)) 5 mg PO ONCE@1700 [facility]; Protocol Stop: 01/30/19 17:01 Vital Signs - 8 hr 01/30/19 11:15 Temperature 98.9 F Pulse Rate 80 Respiratory 20 Rate Blood Pressure 113/57 (mmHg) O2 Sat by Pulse 98 Oximetry Oxygen Devices in Use Now: None Appearance: Pleasant morbid obese lady sitting up in bed in NAD Eyes: No Scleral Icterus Ears/Nose/Mouth/Throat: Mucous Membranes Moist Neck: Trachea Midline Respiratory: Symmetrical Chest Expansion and Respiratory Effort, Clear to Auscultation Cardiovascular: RRR - Normal S1 and S2 Abdominal: NL Sounds; No Tenderness; No Distention Extremities: - - RIght foot Charcot deformity with ulceration near lateral maleolous and drainage of serous, foul smelling drainage Neurological: Alert and Oriented x 3, NL Muscle Strength and Tone Result Diagrams: 01/30/19 05:16 01/30/19 05:16 Assess/Plan/Problems-Billing Assessment: Mrs Jon is a 58yo F with PMH of morbid obesity with a BMI of 40, type 2 DM with diabetic neuropathy, Charcot foot, CKD stage 4-5, HTN, DVT/PE, Gout, HLD, DJD, right foot ulcer s/p I&D, who presented to ED with c/o worsening right foot wound and drainage. - Patient Problems (1) Sepsis Comment: - Met sepsis criteria with tachycardia and leukocytosis. - Source is diabetic foot infection and probable osteomyelitis. (2) Right foot infection Comment: - Right foot diabetic infection, s/p I and D on prior admission and antibiotic treatment. - Suspect osteomyelitis. - Ortho input appreciated. - Awaiting MRI. - Continue Zosyn. 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 - Creatinine up to 3 - continue to monitor. - Continue gentle IV hydration. - Diuretics on hold. (4) Diabetes mellitus Comment: - Type 2 DM. - She states her glucose has been much better controlled with Semaglutide - will continue. - Continue Lispro SS. (5) Hypertension Comment: - Controlled. - Continue Labetalol. (6) DVT prophylaxis Comment: - INR is subtherapeutic - will increase Warfarin to 5mg and add SQ heparin until INR>2.0. (7) Full code status Status and Disposition: Inpatient.
[2019-01-30] MEDS ORDERED: Warfarin TAB(*) 5 MG PO ONE (17:00)
[2019-01-30] MEDS ORDERED: SEMAGLUTIDE SUBCUT SCH (19:00)
[2019-01-31] MEDS: ZOSYN 3.375 GM Q12H per EXTENDED INFUSION IVPB SCH ×4 (01:43→14:00)
[2019-01-31] MEDS: Heparin VIAL(*) 5000 UNITS/ML VIAL (FIVE THOUSAND) SUBCUT SCH (05:59)
[2019-01-31 06:18] LABS: ABS Eosinophils 0.2 10^3/ul (0-0.6); ABS Lymphocytes 1.5 10^3/ul (1.0-4.8); ABS Monocytes 0.8 10^3/ul (0-0.8); ABS Neutrophils 6.7 10^3/ul (1.5-7.7); Eosinophil % 1.9 %; Hematocrit 24 % (35-47); Hemoglobin 7.6 g/dL (12.0-16.0); Lymphocyte % 16.5 %; Mean Corpuscular HGB Conc 31 g/dL (31-36); Mean Corpuscular Hemoglobin 26 pg (27-31); Mean Corpuscular Volume 83 fL (80-97); Mean Platelet Volume 7.6 fL (7.4-10.4); Platelet Count 314 10^3/uL (150-450); Red Blood Count 2.95 10^6 /uL (3.70-4.87); Red Cell Distribution Width 19 % (10-15); White Blood Count 9.3 10^3/uL (3.5-10.8)
[2019-01-31 06:40] LABS: BUN/Creatinine Ratio 14.9 (8-20); Calcium 9.1 mg/dL (8.6-10.3); EGFR African American 19.1 (>60); EGFR Non-African American 15.8 (>60)
[2019-01-31] MEDS: Insulin LISPRO* 1 UNITS UNIT SUBCUT SCH ×4 (07:26→22:23)
[2019-01-31] MEDS: Allopurinol TAB* 100 MG PO SCH (08:49)
[2019-01-31] MEDS: Famotidine TAB* 20 MG PO SCH (08:49)
[2019-01-31] MEDS: Ferrous Gluconate TAB* 324 MG TAB PO SCH ×3 (08:49→21:18)
[2019-01-31] MEDS: Labetalol TAB* 200 MG PO SCH ×2 (08:50→21:19)
[2019-01-31] MEDS: NS 0.9% 1000 ML** 1,000 ML IV SCH (08:51)
[2019-01-31 09:17] LABS: INR 2.06 (0.82-1.09)
--- NOTE | 2019-01-31 09:46 | PN ---
Subjective Date of Service: 01/31/19 Interval History: HOSPITALIST PROGRESS NOTE Patient seen and examined at bedside. Care reviewed and d/w Nathan Verde RN. She offers no new complaints today. States right foot pain is less intense. She is frustrated as she thinks her treatment was delayed. She went to the wound clinic and was told her foot looked worse and she needed an MRI, but she feels if she had been prescribed antibiotics at that time, she would not be in this situation now. Family History: Unchanged from Admission Social History: Unchanged from Admission Past Medical History: Unchanged from Admission Objective Active Medications: Acetaminophen (Tylenol Tab*) 650 mg PO Q4H PRN PRN Reason: FEVER/PAIN Acetaminophen (Tylenol Tab*) 650 mg PO Q6H PRN PRN Reason: MILD PAIN or TEMP > 100.4 Allopurinol (Zyloprim Tab*) 100 mg PO DAILY WITH MEAL [facility] Last Admin: 01/31/19 08:49 Dose: 100 mg Colchicine (Colcrys*) 0.6 mg PO DAILY PRN PRN Reason: Gout Dextrose (Dextrose 50% Vial 50 Ml*) 25 ml IV PUSH .FOR FS < 60 - SS PRN PRN Reason: FS < 60 Ergocalciferol (Drisdol Cap*) 50,000 unit PO WEEKLY [facility] Famotidine (Pepcid Tab*) 20 mg PO DAILY [facility] Last Admin: 01/31/19 08:49 Dose: 20 mg Ferrous Gluconate (Fergon Tab*) 324 mg PO TID [facility] Last Admin: 01/31/19 08:49 Dose: 324 mg Heparin Sodium (Porcine) (Heparin Vial(*)) 5,000 units SUBCUT Q8HR [facility] Last Admin: 01/31/19 05:59 Dose: 5,000 units Sodium Chloride (Ns 0.9% 1000 Ml) 1,000 mls @ 75 mls/hr IV PER RATE [facility] Last Admin: 01/31/19 08:51 Dose: 75 mls/hr Piperacillin Sod/Tazobactam (Sod 3.375 gm/ Sodium Chloride) 100 mls @ 25 mls/ hr IVPB Q12H [facility] Last Admin: 01/31/19 01:43 Dose: 25 mls/hr Insulin Human Lispro (Humalog*) 0 units SUBCUT ACHS [facility]; Protocol Last Admin: 01/31/19 07:26 Dose: Not Given Labetalol HCl (Trandate Tab*) 200 mg PO BID [facility] Last Admin: 01/31/19 08:50 Dose: 200 mg Morphine Sulfate (Morphine Inj (Syringe))*) 2 mg IV Q3H PRN PRN Reason: SEVERE PAIN Last Admin: 01/30/19 00:34 Dose: 2 mg Non Formulary Med* (Ozempic 1mg /Dose) 1 admin SUBCUT WEEKLY [facility] Pharmacy Consult (Zosyn Per Pharmacy*) 1 note FOLLOW UP .ZOSYN PER PHARMACY [facility] Vital Signs - 8 hr 01/31/19 01/31/19 03:12 07:00 Temperature 98.2 F 98.2 F Pulse Rate 82 77 Respiratory 20 18 Rate Blood Pressure 111/50 153/68 (mmHg) O2 Sat by Pulse 94 100 Oximetry Oxygen Devices in Use Now: None Appearance: Pleasant middle aged lady lying in bed in NAD Eyes: No Scleral Icterus Ears/Nose/Mouth/Throat: Mucous Membranes Moist Neck: Trachea Midline Respiratory: Symmetrical Chest Expansion and Respiratory Effort, Clear to Auscultation Cardiovascular: RRR - Normal S1 and S2 Extremities: - - Bilateral LE mild pitting edema; right filippo is more swollen today, especially around lateral maleolous, with foul smelling drainage. Good DP pulses Neurological: Alert and Oriented x 3, NL Muscle Strength and Tone Result Diagrams: 01/31/19 05:49 01/31/19 05:49 Assess/Plan/Problems-Billing Assessment: Mrs Jon is a 58yo F with PMH of morbid obesity with a BMI of 40, type 2 DM with diabetic neuropathy, Charcot foot, CKD stage 4-5, HTN, DVT/PE, Gout, HLD, DJD, right foot ulcer s/p I&D, who presented to ED with c/o worsening right foot wound and drainage. - Patient Problems (1) Sepsis Comment: - Met sepsis criteria with tachycardia and leukocytosis. - Source is diabetic foot infection and probable osteomyelitis. (2) Right foot infection Comment: - Right foot diabetic infection, s/p I and D on prior admission and antibiotic treatment. - Suspect osteomyelitis. - Ortho input appreciated - possible OR today for I&D and debridment. - ID consulted requested. - Awaiting MRI. - Continue Zosyn #2 - will probably require medical terminologist IV antibiotics. 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 - Creatinine stable around 3 - continue to monitor. - Continue gentle IV hydration. - Diuretics on hold. (4) Diabetes mellitus Comment: - Type 2 DM. - She states her glucose has been much better controlled with Semaglutide - will continue. - Continue Lispro SS. (5) Hypertension Comment: - Controlled. - Continue Labetalol. (6) DVT prophylaxis Comment: - Warfarin. (7) Full code status Status and Disposition: Inpatient.
[2019-01-31] MEDS ORDERED: Buffered Lidocaine 1% SYRIN* 1 ML/SYRINGE INTRADERM ONE ×2 (10:41→11:05)
[2019-01-31] MEDS ORDERED: Midazolam* 1 MG/ML 2 ML VIAL (2 MG) ONE (10:49)
[2019-01-31] MEDS ORDERED: HYDROcodone/ACETAMIN 5-325 MG* 1 TAB PO PRN (11:06)
[2019-01-31] MEDS ORDERED: DiMENhydriNATE IV* 50 MG/ML VIAL IV PUSH PRN (11:06)
[2019-01-31] MEDS ORDERED: Ondansetron INJ* 2 MG/ML VIAL IV PRN (11:06)
[2019-01-31] MEDS ORDERED: Naloxone* 0.4 MG/ML 1 ML VIAL IV PRN (11:06)
[2019-01-31] MEDS ORDERED: Lidocaine 2% PF* 10 ML AMP ONE (11:42)
[2019-01-31] MEDS ORDERED: fentaNYL* 50 MCG/ML 2 ML VIAL (100 MCG VIAL) ONE (11:46)
[2019-01-31] MEDS ORDERED: Propofol* 10 MG/ML 20 ML BTL ONE (11:46)
[2019-01-31] MEDS ORDERED: Lidocaine 2% PF * 5 ML VIAL ONE (11:47)
--- NOTE | 2019-01-31 11:48 | CONS ---
CONSULTATION REPORT: DATE OF CONSULT: 01/31/19 REQUESTING PHYSICIAN: Dr. Nino. CONSULTING SERVICE: Infectious Disease. REASON FOR CONSULT: Right ankle wound. IMPRESSION: 1. Right lateral ankle wound, pressure related, prior cellulitis, history of tibia fixation, recent increase in drainage. Differential includes cellulitis, abscess, tenosynovitis and chronic osteomyelitis or all. 2. Diabetes with neuropathy. 3. Morbid obesity. 4. Bilateral Charcot joint. 5. Stage 4 chronic kidney disease. RECOMMENDATIONS: Continue Zosyn every 12 hours by extended infusion dose for her GFR. She is going to have an MRI or CT to further evaluate her ankle joint. We discussed that she may need some debridement and that likely a long course of IV antibiotics to be part of the equation. HISTORY OF PRESENT ILLNESS: This is a 58-year-old woman with diabetes and chronic kidney disease, admitted with right ankle infection. She was here this summer with right leg cellulitis and a lateral ankle wound. She had a long course of antibiotics with resolution of the inflammatory symptoms. She had followed up with the [facility] and had not been able to make it to her followup with me. She had continued to have debridements of the wound over the number of months, but then started to have increasing drainage and a little bit of swelling. An outpatient MRI was planned, but has not happened yet. Because of worsening pain and swelling, she came to the hospital on 01/29/19. She had a white count of 18,000; it is down to 9000 today since being on Zosyn. She has had an x-ray of the foot and lower extremity that I reviewed. Radiology notes that there are appearance of a Charcot foot and intramedullary fixation prosthesis which extends throughout the tibia. She has been having pain leading up to her admission that involves the ankle, worse with weightbearing and it is getting a little bit better now. Range of motion is not quite as bad either. No fever since she has been here. PAST MEDICAL HISTORY: 1. Type 2 diabetes with peripheral neuropathy. 2. Morbid obesity. 3. Stage 4 chronic kidney disease. 4. Right lower leg fracture, status post intramedullary fixation. 5. Anemia of chronic disease. 6. Bilateral Charcot ankle. 7. Hypertension. 8. History of DVT and pulmonary embolism, on Coumadin. 9. Gout. 10. Hyperlipidemia. 11. Osteoarthritis. ALLERGIES: No known drug allergies. MEDICATIONS: 1. Zosyn 3.375 g every 12 hours by extended infusion. 2. Tylenol. 3. Allopurinol. 4. Colchicine as needed. 5. Famotidine. 6. Ferrous gluconate 3 times a day. 7. Heparin subcutaneous injection. 8. Insulin lispro. 9. Labetalol twice a day. 10. Warfarin. SOCIAL HISTORY: She lives in [place]. She is a nonsmoker. 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 FAMILY HISTORY: Mother decreased at 67 with complications of anesthesia. REVIEW OF SYSTEMS: A 12-point review was all negative except as noted above in the history of present illness. PHYSICAL EXAM: Vital Signs: Temperature 37, heart rate 77, respiratory rate 18 , blood pressure 150/70, oxygen saturation 100% on room air. In general, she is awake, not in distress. Neurologic: She is oriented x3. Follows all commands. Sensation is absent to light touch in both feet. HEENT: There is no conjunctival hemorrhage. Oropharynx without lesions. Neck is supple without mass. Heart is regular rate and rhythm without murmurs, rubs, or gallops. Lungs are clear to auscultation bilaterally. Abdomen: Soft, nontender, nondistended. Bowel sounds present. Skin: There is no rash or splinter hemorrhage. Musculoskeletal: There is no spine tenderness to palpation. There is a right lateral ankle wound of about a centimeter with surrounding edema. There is no tenderness to palpation. There is some tenderness throughout the rest of the ankle and a little bit of pain with active flexion and extension of the ankle. There is slight warmth without erythema. LABORATORY DATA: White blood cell count is 9, hemoglobin 7, platelets 314, creatinine is 3. CRP was 378 on admission. Please see impressions and recommendations outlined above. Thank you for asking me to see Ms. Forbes in consultation. [id number]/[facility] #: [id number] KATELYN
[2019-01-31] MEDS ORDERED: Lactated Ringers 1000 ML Bag* 1,000 ML IV SCH (12:00)
[2019-01-31] MEDS ORDERED: KETAMINE HCL* 50 MG/ML 10 ML VIAL ONE (12:01)
[2019-01-31] MEDS ORDERED: HYDROcodone/ACETAMIN 5-325 MG* 1 TAB ONE (12:57)
[2019-01-31] MEDS: Morphine INJ* 2 MG/ML 1 ML SYRINGE (TWO MG - NEW SYRINGE VERSION) IV PRN (16:03)
[2019-01-31] MEDS: Warfarin TAB(*) 3 MG PO SCH (16:03)
[2019-01-31] MEDS ORDERED: Morphine INJ* 4 MG/ML 1 ML SYRINGE (NEW SYRINGE VERSION) IV PRN (18:23)
--- NOTE | 2019-01-31 20:55 | OP ---
DATE OF OPERATION: 01/31/19 - ROOM #414 DATE OF : 58 SURGEON: Thanh Wood MD JANITORIAL ASSISTANT: NIKIA Lares PRE-OP DIAGNOSIS: Infection chronic right Charcot ankle arthropathy. POST-OP DIAGNOSIS: Infection chronic right Charcot ankle arthropathy. OPERATIVE PROCEDURE: Debridement of right hindfoot Charcot arthropathy with distal fibulectomy. DESCRIPTION OF PROCEDURE: The patient was taken to the operating room where a longitudinal incision was made down to the fibula and just distal to it so we could open up the space in the hindfoot. Cultures were sent from this area. There was a cavity distal to the tibia basically between the tarsal bones. A large curette was used to scrape the surfaces of this large cavity. Pulsatile lavage was used to clean it. The distal fibula 5 cm of it was dissected free of the joint and the surface of the wound after transecting obliquely with a microsagittal saw. We then closed the wound with deep 2-0 Monocryl sutures and Prolene sutures for the skin. The compression dressing was applied with the splint. [id number]/[facility] #: [id number] [facility]
[2019-01-31] MEDS: Acetaminophen TAB* 325 MG PO PRN (21:22)
[2019-02-01] MEDS: ZOSYN 3.375 GM Q12H per EXTENDED INFUSION IVPB SCH ×4 (01:52→14:08)
[2019-02-01] MEDS: NS 0.9% 1000 ML** 1,000 ML IV SCH (01:57)
[2019-02-01 06:40] LABS: INR 2.56 (0.82-1.09)
[2019-02-01 07:00] LABS: BUN/Creatinine Ratio 13.7 (8-20); Calcium 8.9 mg/dL (8.6-10.3); EGFR African American 22.5 (>60); EGFR Non-African American 18.6 (>60); Potassium 4.1 mmol/L (3.5-5.0)
[2019-02-01] MEDS: Insulin LISPRO* 1 UNITS UNIT SUBCUT SCH ×4 (08:09→22:46)
[2019-02-01] MEDS: Famotidine TAB* 20 MG PO SCH (08:21)
[2019-02-01] MEDS: Ferrous Gluconate TAB* 324 MG TAB PO SCH ×3 (08:22→20:18)
[2019-02-01] MEDS: Allopurinol TAB* 100 MG PO SCH (08:22)
[2019-02-01] MEDS: Labetalol TAB* 200 MG PO SCH ×2 (08:22→20:18)
[2019-02-01] MEDS: Acetaminophen TAB* 325 MG PO PRN (11:54)
--- NOTE | 2019-02-01 16:28 | PN ---
Subjective Date of Service: 02/01/19 Interval History: Patient seen today, resting in chair. doing well no fever. s/p I&D. Pain still present but she thinks it is related to post op pain rather than the ulcer and foot pain. Currently on IV Zosyn. Wound culture final results pending Past Medical History: Unchanged from Admission Objective Active Medications: Acetaminophen (Tylenol Tab*) 650 mg PO Q4H PRN PRN Reason: FEVER/PAIN Last Admin: 02/01/19 11:54 Dose: 650 mg Allopurinol (Zyloprim Tab*) 100 mg PO DAILY WITH MEAL [facility] Last Admin: 02/01/19 08:22 Dose: 100 mg Colchicine (Colcrys*) 0.6 mg PO DAILY PRN PRN Reason: Gout Dextrose (Dextrose 50% Vial 50 Ml*) 25 ml IV PUSH .FOR FS < 60 - SS PRN PRN Reason: FS < 60 Ergocalciferol (Drisdol Cap*) 50,000 unit PO WEEKLY [facility] Last Admin: 02/01/19 08:35 Dose: 50,000 unit Famotidine (Pepcid Tab*) 20 mg PO DAILY [facility] Last Admin: 02/01/19 08:21 Dose: 20 mg Ferrous Gluconate (Fergon Tab*) 324 mg PO TID [facility] Last Admin: 02/01/19 14:08 Dose: 324 mg Sodium Chloride (Ns 0.9% 1000 Ml) 1,000 mls @ 75 mls/hr IV PER RATE [facility] Last Admin: 02/01/19 01:57 Dose: 75 mls/hr Piperacillin Sod/Tazobactam (Sod 3.375 gm/ Sodium Chloride) 100 mls @ 25 mls/ hr IVPB Q12H [facility] Last Admin: 02/01/19 14:08 Dose: 25 mls/hr Insulin Human Lispro (Humalog*) 0 units SUBCUT ACHS [facility]; Protocol Last Admin: 02/01/19 11:50 Dose: 3 units Labetalol HCl (Trandate Tab*) 200 mg PO BID [facility] Last Admin: 02/01/19 08:22 Dose: 200 mg Morphine Sulfate (Morphine Inj (Syringe)*) 4 mg IV Q2H PRN PRN Reason: SEVERE PAIN Last Admin: 01/31/19 21:16 Dose: 4 mg Non Formulary Med* (Ozempic 1mg /Dose) 1 admin SUBCUT WEEKLY [facility] Last Admin: 02/01/19 10:00 Dose: 1 admin Pharmacy Consult (Zosyn Per Pharmacy*) 1 note FOLLOW UP .ZOSYN PER PHARMACY [facility] Warfarin Sodium (Coumadin Tab(*)) 3 mg PO DAILY@1700 [facility]; Protocol Last Admin: 01/31/19 16:03 Dose: 3 mg Vital Signs - 8 hr 02/01/19 02/01/19 02/01/19 11:09 16:21 16:22 Temperature 98.4 F 98.3 F Pulse Rate 79 81 Respiratory 23 16 Rate Blood Pressure 125/50 125/61 (mmHg) O2 Sat by Pulse 96 99 99 Oximetry Oxygen Devices in Use Now: None Appearance: awake, alert no distress. resting in her recliner Eyes: No Scleral Icterus, - - EOMI Ears/Nose/Mouth/Throat: NL Teeth, Lips, Gums, Mucous Membranes Moist Neck: NL Appearance and Movements; NL JVP, Trachea Midline Respiratory: Symmetrical Chest Expansion and Respiratory Effort, Clear to Auscultation Cardiovascular: NL Sounds; No Murmurs; No JVD Abdominal: NL Sounds; No Tenderness; No Distention Extremities: - - right lower extremety dressing in place Result Diagrams: 01/31/19 05:49 02/01/19 06:13 Microbiology and Other Data: Microbiology 01/31/19 12:15 Anaerobic Culture - Preliminary Wound No Growth Day 1 01/31/19 12:15 Gram Stain - Final Ankle Right Assess/Plan/Problems-Billing Assessment: Mrs Jon is a 58yo F with PMH of morbid obesity with a BMI of 40, type 2 DM with diabetic neuropathy, Charcot foot, CKD stage 4-5, HTN, DVT/PE, Gout, HLD, DJD, right foot ulcer s/p I&D, who presented to ED with c/o worsening right foot wound and drainage. - Patient Problems (1) Right foot infection Current Visit: Yes Status: Acute Code(s): L08.9 - LOCAL INFECTION OF THE SKIN AND SUBCUTANEOUS TISSUE, UNSP SNOMED Code(s): 748137290 Comment: - Right foot diabetic infection, s/p I and D on prior admission and antibiotic treatment. - Suspect osteomyelitis. s/p I&D and debridment 01/31/19 - ID consulted noted requested MRI but I did not see the order or the test. Will clarify with ID if will need to pursue tomorrow - Continue Zosyn #3 - will probably require long lines operator IV antibiotics. (2) Sepsis Current Visit: Yes Status: Acute Comment: - Met sepsis criteria with tachycardia and leukocytosis. - Source is diabetic foot infection and probable osteomyelitis. - Resolved (3) Chronic kidney disease Current Visit: Yes Status: Acute Code(s): N18.9 - CHRONIC KIDNEY DISEASE, UNSPECIFIED SNOMED Code(s): 730760546 Comment: - CKD stage 4-5 secondary to diabetic nephropathy. - Creatinine stable around high 2's -3 - will continue to monitor. - Continue gentle IV hydration. - Diuretics on hold. (4) Hypertension Current Visit: Yes Status: Acute Code(s): I10 - ESSENTIAL (PRIMARY) HYPERTENSION SNOMED Code(s): 39810390 Comment: - Controlled. - Continue Labetalol. (5) Anemia Current Visit: No Status: Acute Code(s): D64.9 - ANEMIA, UNSPECIFIED SNOMED Code(s): 363980619 Comment: - Chronic. - Mixed pic of iron deficiency and anemia of chronic disease - In addition some blood loss post I7D - Monitor and conitnue her Iron 325 mg tid - Continue famotide for GI Prophylaxis (6) Charcot foot due to diabetes mellitus Current Visit: No Status: Acute Code(s): E11.610 - TYPE 2 DIABETES MELLITUS W DIABETIC NEUROPATHIC ARTHROPATHY SNOMED Code(s): 056864027 Comment: - bilateral charcot foot - s/p right foot I&D 01/31/19 - Currenlty on IV abx for her ulcer and infections (7) Pulmonary thromboembolism Current Visit: No Status: Acute Code(s): I26.99 - OTHER PULMONARY EMBOLISM WITHOUT ACUTE COR PULMONALE SNOMED Code(s): 878130556 Comment: Prior hisotry of PE. On wafarin for DVT prophylaxis (8) DVT prophylaxis Current Visit: Yes Status: Acute Code(s): OFR1134 - SNOMED Code(s): 180816145 Comment: - on Warfarin. Status and Disposition: Inpatient.
--- NOTE | 2019-02-01 16:35 | PN ---
Progress Note - Progress Note Date of Service: 02/01/19 SOAP: Subjective: POD #1 Right ankle I&D with distal fibula excision. Doing well, no pain. Denies f/c. Denies calf pain or SOB. Objective: Vital Signs: Temp Pulse Resp BP Pulse Ox 98.3 F 81 16 125/61 99 / 16:21 12 16:21 02/01/19 16:21 02/01/19 16:21 02/01/19 16:22 Gen: A&Ox3, NAD at rest sitting in chair RLE: Splint C/D/I. +f/e at toes. Sensation decreased due to neuropathy. Labs: Laboratory Results - last 24 hr 01/31/02/01/02/01/19 21:13 06:13 06:13 INR (Anticoag Therapy) 2.56 H Sodium 138 Potassium 4.1 Chloride 109 Carbon Dioxide 21 L Anion Gap 8 BUN 36 H Creatinine 2.63 H Est GFR ( Amer) 22.5 Est GFR (Non-Af Amer) 18.6 BUN/Creatinine Ratio 13.7 Glucose 93 POC Glucose (mg/dL) 118 H Calcium 8.9 //02/01/19 07:41 11:10 INR (Anticoag Therapy) Sodium Potassium Chloride Carbon Dioxide Anion Gap BUN Creatinine Est GFR ( Amer) Est GFR (Non-Af Amer) BUN/Creatinine Ratio Glucose POC Glucose (mg/dL) 97 152 H Calcium Assessment: POD #1 Right ankle I&D with distal fibula excision Plan: Cont NWB RLE Dressing change tomorrow to evaluate wound, possible need for repeat I&D Cont IV abx per ID
[2019-02-01] MEDS: Warfarin TAB(*) 3 MG PO SCH (17:05)
[2019-02-02] MEDS: ZOSYN 3.375 GM Q12H per EXTENDED INFUSION IVPB SCH ×6 (01:12→17:55)
[2019-02-02 05:21] LABS: ABS Eosinophils 0.3 10^3/ul (0-0.6); ABS Lymphocytes 1.4 10^3/ul (1.0-4.8); ABS Monocytes 0.9 10^3/ul (0-0.8); Eosinophil % 2.6 %; Hematocrit 22 % (35-47); Hemoglobin 7.2 g/dL (12.0-16.0); Lymphocyte % 13.4 %; Mean Corpuscular HGB Conc 32 g/dL (31-36); Mean Corpuscular Hemoglobin 27 pg (27-31); Mean Corpuscular Volume 82 fL (80-97); Mean Platelet Volume 7.3 fL (7.4-10.4); Platelet Count 360 10^3/uL (150-450); Red Blood Count 2.69 10^6 /uL (3.70-4.87); Red Cell Distribution Width 19 % (10-15); White Blood Count 10.6 10^3/uL (3.5-10.8)
[2019-02-02 05:35] LABS: BUN/Creatinine Ratio 12.3 (8-20); EGFR African American 22.8 (>60); EGFR Non-African American 18.8 (>60); Magnesium 1.8 mg/dL (1.9-2.7); Phosphorus 3.1 mg/dL (2.5-5.0); Potassium 4.2 mmol/L (3.5-5.0)
[2019-02-02] MEDS: Insulin LISPRO* 1 UNITS UNIT SUBCUT SCH ×4 (07:30→21:59)
[2019-02-02] MEDS: Allopurinol TAB* 100 MG PO SCH (09:59)
[2019-02-02] MEDS: Magnesium Oxide TAB* 400 MG PO SCH ×2 (09:59→21:41)
[2019-02-02] MEDS: Labetalol TAB* 200 MG PO SCH ×2 (09:59→21:41)
[2019-02-02] MEDS: Ferrous Gluconate TAB* 324 MG TAB PO SCH ×3 (09:59→21:41)
[2019-02-02] MEDS: Famotidine TAB* 20 MG PO SCH (09:59)
--- NOTE | 2019-02-02 10:31 | PN ---
Progress Note - Progress Note Date of Service: 02/02/19 SOAP: Subjective: CC: Right foot wound HPI: Ms. Forbes is a 58 yo female with PMH significant for DM2, charcot foot bilateral, chronic anemia, HLD, hx DVT/PE, osteoarthritis, HTN, and CKD stage 4 ; who presented to the hospital with a right ankle wound. Denies fever, chills, nausea, vomiting, diarrhea. Reports discomfort in the right LE, but doesn't feel like it is pain. Objective: Vital Signs - 8 hr 02/02/19 02/02/19 02/02/19 03:14 03:18 07:30 Temperature 99.2 F 98.3 F Pulse Rate 85 85 Respiratory 28 24 26 Rate Blood Pressure 128/70 135/72 (mmHg) O2 Sat by Pulse 94 98 Oximetry Physical Exam: General: NAD, sitting up in a chair Neurological: Alert and Oriented HEENT: Moist MM, no thrush Cardiovascular: Heart rate regular Respiratory: Lung sounds clear Abdominal: Bowel sounds present; ABD soft, obese and non tender MSK: Splint to the right LE Skin: No rash Laboratory Results - last 24 hr 02/02/19 02/02/19 02/02/19 04:39 04:39 07:28 WBC 10.6 RBC 2.69 L Hgb 7.2 L Hct 22 L MCV 82 MCH 27 MCHC 32 RDW 19 H Plt Count 360 MPV 7.3 L Neut % (Auto) 75.0 Lymph % (Auto) 13.4 [place] % (Auto) 8.7 Eos % (Auto) 2.6 Baso % (Auto) 0.3 Absolute Neuts (auto) 8.0 H Absolute Lymphs (auto) 1.4 Absolute Monos (auto) 0.9 H Absolute Eos (auto) 0.3 Absolute Basos (auto) 0.0 Absolute Nucleated RBC 0.0 Nucleated RBC % 0.0 Sodium 137 Potassium 4.2 Chloride 109 Carbon Dioxide 18 L Anion Gap 10 BUN 32 H Creatinine 2.60 H Est GFR ( Amer) 22.8 Est GFR (Non-Af Amer) 18.8 BUN/Creatinine Ratio 12.3 Glucose 105 H POC Glucose (mg/dL) 104 H Calcium 9.0 Phosphorus 3.1 Magnesium 1.8 L Microbiology 01/31/19 12:15 Anaerobic Culture - Preliminary Wound 01/31/19 12:15 Gram Stain - Final Ankle Right Assessment: 1. Right ankle wound. With cellulitis and possible underlying chronic osteomyelitis. History of staph aureus in this foot in the past. MRI with osteomyelitis of the right distal tibia, distal fibula, calcaneus, navicular, cuneiforms, and cuboid; cellulitis in the right hindfoot and midfoot, no abscess ; and soft tissue ulcer along the lateral aspect of the right ankle (this was obtained after surgery and findings may be secondary to response from surgery). S/P dedridement of right hindfoot charcot arthropathy with distal fibulectomy, POD #2. Wound culture with no growth to date. Afebrile for ~ 48 hours, and leukocytosis has resolved. 2. DM2 with peripheral neuropathy. With CKD, stage 4. 3. Morbid obesity. BMI 40.7. 4. Bilateral charcot joint. Plan: Continue Zosyn for now. Further recommendations will be based on culture results and pathology results. 25 minutes floor time: > 50% spent with the patient discussing MRI results, surgical findings, and possible need for an extended course of IV ABX.
--- NOTE | 2019-02-02 14:25 | PN ---
Progress Note - Progress Note Date of Service: 02/02/19 SOAP: Subjective: []Pt seen OOB in chair. She denies fever, chills, CP, SOB, dizziness, nausea. Objective: []Gen: NAD, nontoxic appearing RLE: Splint removed, lateral incision is well approximated with mild bleeding from proximal incision and no purulence. No erythema surrounding and no streaking erythema, minimally tender to palpation at the incision site no tenderness otherwise. + charcot deformity at baseline with minimal additional swelling laterally. Able to f/e at ankle and MTPs without pain. Decreased sensation though intact to light touch distally, baseline. Cap refill less than two seconds distally. Wound dressed with xeroform, 4x4s, New well padded short leg splint placed. Calves supple and nontender Assessment: []POD #2 Right ankle I&D with distal fibula excision Plan: Cont NWB RLE Keep splint CDI. Incision healing well appearance does not warrant repeat washout. Cont IV abx per ID WBC and CRP recheck tomorrow Microbiology 01/31/19 12:15 Gram Stain - Final Ankle Right Wound Culture - Preliminary Strep Pyogenes (Grp A) 01/31/19 12:15 Anaerobic Culture - Preliminary Wound Laboratory Last Values WBC 10.6 10^3/uL (3.5-10.8) 02/02/19 04:39 RBC 2.69 10^6 /uL (3.70-4.87) L 02/02/19 04:39 Hgb 7.2 g/dL (12.0-16.0) L 02/02/19 04:39 Hct 22 % (35-47) L 02/02/19 04:39 MCV 82 fL (80-97) 02/02/19 04:39 MCH 27 pg (27-31) 02/02/19 04:39 MCHC 32 g/dL (31-36) 02/02/19 04:39 RDW 19 % (10-15) H 02/02/19 04:39 Plt Count 360 10^3/uL (150-450) 02/02/19 04:39 MPV 7.3 fL (7.4-10.4) L 02/02/19 04:39 Neut % (Auto) 75.0 % 02/02/19 04:39 Lymph % (Auto) 13.4 % 02/02/19 04:39 [place] % (Auto) 8.7 % 02/02/19 04:39 Eos % (Auto) 2.6 % 02/02/19 04:39 Baso % (Auto) 0.3 % 02/02/19 04:39 Absolute Neuts (auto) 8.0 10^3/ul (1.5-7.7) H 02/02/19 04:39 Absolute Lymphs (auto) 1.4 10^3/ul (1.0-4.8) 02/02/19 04:39 Absolute Monos (auto) 0.9 10^3/ul (0-0.8) H 02/02/19 04:39 Absolute Eos (auto) 0.3 10^3/ul (0-0.6) 02/02/19 04:39 Absolute Basos (auto) 0.0 10^3/ul (0-0.2) 02/02/19 04:39 Absolute Nucleated RBC 0.0 10^3/ul 02/02/19 04:39 Nucleated RBC % 0.0 02/02/19 04:39 INR (Anticoag Therapy) 2.56 (0.82-1.09) H 02/01/19 06:13 Sodium 137 mmol/L (135-145) 02/02/19 04:39 Potassium 4.2 mmol/L (3.5-5.0) 02/02/19 04:39 Chloride 109 mmol/L (101-111) 02/02/19 04:39 Carbon Dioxide 18 mmol/L (22-32) L 02/02/19 04:39 Anion Gap 10 mmol/L (2-11) 02/02/19 04:39 BUN 32 mg/dL (6-24) H 02/02/19 04:39 Creatinine 2.60 mg/dL (0.51-0.95) H 02/02/19 04:39 Est GFR ( Amer) 22.8 (>60) 02/02/19 04:39 Est GFR (Non-Af Amer) 18.8 (>60) 02/02/19 04:39 BUN/Creatinine Ratio 12.3 (8-20) 02/02/19 04:39 Glucose 105 mg/dL (70-100) H 02/02/19 04:39 POC Glucose (mg/dL) 108 mg/dL (70-100) H 02/02/19 11:35 Lactic Acid 1.2 mmol/L (0.5-2.0) 01/29/19 14:43 Calcium 9.0 mg/dL (8.6-10.3) 02/02/19 04:39 Phosphorus 3.1 mg/dL (2.5-5.0) 02/02/19 04:39 Magnesium 1.8 mg/dL (1.9-2.7) L 02/02/19 04:39 Total Bilirubin 0.60 mg/dL (0.2-1.0) 01/29/19 14:43 AST 9 U/L (13-39) L 01/29/19 14:43 ALT 6 U/L (7-52) L 01/29/19 14:43 Alkaline Phosphatase 121 U/L (34-104) H 01/29/19 14:43 C-Reactive Protein 378.94 mg/L (<8.01) H 01/29/19 14:43 Total Protein 7.4 g/dL (6.4-8.9) 01/29/19 14:43 Albumin 3.1 g/dL (3.2-5.2) L 01/29/19 14:43 Globulin 4.3 g/dL (2-4) H 01/29/19 14:43 Albumin/Globulin Ratio 0.7 (1-3) L 01/29/19 14:43 Vital Signs Temp 98.1 F 02/02/19 11:52 Pulse 79 02/02/19 11:52 Resp 24 02/02/19 11:52 BP 137/67 02/02/19 11:52 Pulse Ox 99 02/02/19 11:52 Intake & Output 02/01/19 02/02/19 02/02/19 18:59 06:59 18:59 Intake Total 720 180 120 Balance 720 180 120 Weight 244 lb 6.4 oz Intake: IV Fluids 50 NS (0.9%) 50 IVPB 130 ABX - PIPERACILLIN 130 Oral 720 0 120 Other: Estimated Void Large # Bowel Movements 1 Estimated Stool Amount Medium # Voids 1 0
[2019-02-02] MEDS: Acetaminophen TAB* 325 MG PO PRN (15:16)
[2019-02-02] MEDS: Warfarin TAB(*) 3 MG PO SCH (17:55)
--- NOTE | 2019-02-02 19:32 | PN ---
Subjective Date of Service: 02/02/19 Interval History: patient seen this afternoon, in chair. pain controlled. she offers no complains to me. eager to have her leg healed and treated Social History: Unchanged from Admission Past Medical History: Unchanged from Admission Objective Active Medications: Acetaminophen (Tylenol Tab*) 650 mg PO Q4H PRN PRN Reason: FEVER/PAIN Last Admin: 02/02/19 15:16 Dose: 650 mg Allopurinol (Zyloprim Tab*) 100 mg PO DAILY WITH MEAL [facility] Last Admin: 02/02/19 09:59 Dose: 100 mg Colchicine (Colcrys*) 0.6 mg PO DAILY PRN PRN Reason: Gout Dextrose (Dextrose 50% Vial 50 Ml*) 25 ml IV PUSH .FOR FS < 60 - SS PRN PRN Reason: FS < 60 Ergocalciferol (Drisdol Cap*) 50,000 unit PO WEEKLY [facility] Last Admin: 02/01/19 08:35 Dose: 50,000 unit Famotidine (Pepcid Tab*) 20 mg PO DAILY [facility] Last Admin: 02/02/19 09:59 Dose: 20 mg Ferrous Gluconate (Fergon Tab*) 324 mg PO TID [facility] Last Admin: 02/02/19 15:03 Dose: 324 mg Piperacillin Sod/Tazobactam (Sod 3.375 gm/ Sodium Chloride) 100 mls @ 25 mls/ hr IVPB Q8H [facility] Last Admin: 02/02/19 17:55 Dose: 25 mls/hr Insulin Human Lispro (Humalog*) 0 units SUBCUT ACHS [facility]; Protocol Last Admin: 02/02/19 16:19 Dose: Not Given Labetalol HCl (Trandate Tab*) 200 mg PO BID [facility] Last Admin: 02/02/19 09:59 Dose: 200 mg Magnesium Oxide (Magox 400 Tab*) 400 mg PO BID [facility] Last Admin: 02/02/19 09:59 Dose: 400 mg Morphine Sulfate (Morphine Inj (Syringe)*) 4 mg IV Q2H PRN PRN Reason: SEVERE PAIN Last Admin: 01/31/19 21:16 Dose: 4 mg Non Formulary Med* (Ozempic 1mg /Dose) 1 admin SUBCUT WEEKLY [facility] Last Admin: 02/01/19 10:00 Dose: 1 admin Pharmacy Consult (Zosyn Per Pharmacy*) 1 note FOLLOW UP .ZOSYN PER PHARMACY [facility] Warfarin Sodium (Coumadin Tab(*)) 3 mg PO DAILY@1700 [facility]; Protocol Last Admin: 02/02/19 17:55 Dose: 3 mg Vital Signs - 8 hr 02/02/19 02/02/19 11:52 15:15 Temperature 98.1 F 97.8 F Pulse Rate 79 74 Respiratory 24 24 Rate Blood Pressure 137/67 134/67 (mmHg) O2 Sat by Pulse 99 100 Oximetry Oxygen Devices in Use Now: None Appearance: awake, alert. no distress Ears/Nose/Mouth/Throat: NL Teeth, Lips, Gums, Mucous Membranes Moist Neck: NL Appearance and Movements; NL JVP, Trachea Midline Respiratory: Symmetrical Chest Expansion and Respiratory Effort, Clear to Auscultation Cardiovascular: NL Sounds; No Murmurs; No JVD Abdominal: NL Sounds; No Tenderness; No Distention Extremities: No Edema Neurological: Alert and Oriented x 3 Result Diagrams: 02/02/19 04:39 02/02/19 04:39 Microbiology and Other Data: Microbiology 01/31/19 12:15 Anaerobic Culture - Preliminary Wound No Growth Day 1 01/31/19 12:15 Gram Stain - Final Ankle Right Assess/Plan/Problems-Billing Assessment: Mrs Jon is a 58yo F with PMH of morbid obesity with a BMI of 40, type 2 DM with diabetic neuropathy, Charcot foot, CKD stage 4-5, HTN, DVT/PE, Gout, HLD, DJD, right foot ulcer s/p I&D, who presented to ED with c/o worsening right foot wound and drainage. - Patient Problems (1) Right foot infection Current Visit: Yes Status: Acute Code(s): L08.9 - LOCAL INFECTION OF THE SKIN AND SUBCUTANEOUS TISSUE, UNSP SNOMED Code(s): 098845456 Comment: - Right foot diabetic infection, s/p I and D on prior admission and antibiotic treatment. - Suspect osteomyelitis. 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 [place] positive for group A strep. Will keep on zosyn and adjust abx accordingly in am (2) Sepsis Current Visit: Yes Status: Acute Comment: - Met sepsis criteria with tachycardia and leukocytosis. - Source is diabetic foot infection and probable osteomyelitis. 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 - Creatinine stable around high 2's -3 - will continue to monitor. - Continue gentle IV hydration. - Diuretics on hold. (4) Hypertension Current Visit: Yes Status: Acute Code(s): I10 - ESSENTIAL (PRIMARY) HYPERTENSION SNOMED Code(s): 03929128 Comment: - Controlled. - Continue Labetalol. (5) Anemia Current Visit: No Status: Acute Code(s): D64.9 - ANEMIA, UNSPECIFIED SNOMED Code(s): 215696578 Comment: - Chronic. - Mixed pic of iron deficiency and anemia of chronic disease - In addition some blood loss post I&D - Monitor and conitnue her Iron 325 mg tid - Continue famotide for GI Prophylaxis (6) Charcot foot due to diabetes mellitus Current Visit: No Status: Acute Code(s): E11.610 - TYPE 2 DIABETES MELLITUS W DIABETIC NEUROPATHIC ARTHROPATHY SNOMED Code(s): 571877669 Comment: - bilateral charcot foot - s/p right foot I&D 01/31/19 - Currenlty on IV abx for her ulcer and infections (7) Pulmonary thromboembolism Current Visit: No Status: Acute Code(s): I26.99 - OTHER PULMONARY EMBOLISM WITHOUT ACUTE COR PULMONALE SNOMED Code(s): 552573342 Comment: Prior hisotry of PE. On wafarin for DVT prophylaxis (8) DVT prophylaxis Current Visit: Yes Status: Acute Code(s): EUG2816 - SNOMED Code(s): 431129075 Comment: - on Warfarin. Status and Disposition: Inpatient.
[2019-02-03] MEDS: ZOSYN 3.375 GM Q12H per EXTENDED INFUSION IVPB SCH ×4 (03:25→10:01)
[2019-02-03 06:28] LABS: ABS Basophils 0.1 10^3/ul (0-0.2); ABS Eosinophils 0.5 10^3/ul (0-0.6); ABS Lymphocytes 1.3 10^3/ul (1.0-4.8); ABS Monocytes 0.7 10^3/ul (0-0.8); ABS Neutrophils 7.8 10^3/ul (1.5-7.7); Eosinophil % 4.4 %; Hematocrit 23 % (35-47); Hemoglobin 7.4 g/dL (12.0-16.0); Lymphocyte % 12.9 %; Mean Corpuscular HGB Conc 32 g/dL (31-36); Mean Corpuscular Hemoglobin 26 pg (27-31); Mean Corpuscular Volume 82 fL (80-97); Mean Platelet Volume 7.4 fL (7.4-10.4); Platelet Count 419 10^3/uL (150-450); Red Blood Count 2.82 10^6 /uL (3.70-4.87); Red Cell Distribution Width 19 % (10-15); White Blood Count 10.4 10^3/uL (3.5-10.8)
[2019-02-03 06:42] LABS: C Reactive Protein 102.29 mg/L (<8.01); Calcium 9.3 mg/dL (8.6-10.3); EGFR African American 22.9 (>60); EGFR Non-African American 18.9 (>60); Potassium 4.5 mmol/L (3.5-5.0)
[2019-02-03] MEDS: Insulin LISPRO* 1 UNITS UNIT SUBCUT SCH ×4 (08:20→22:21)
[2019-02-03] MEDS: Allopurinol TAB* 100 MG PO SCH (09:03)
[2019-02-03] MEDS: Ferrous Gluconate TAB* 324 MG TAB PO SCH ×3 (09:03→22:28)
[2019-02-03] MEDS: Acetaminophen TAB* 325 MG PO PRN (09:03)
[2019-02-03] MEDS: Famotidine TAB* 20 MG PO SCH (09:03)
[2019-02-03] MEDS: Magnesium Oxide TAB* 400 MG PO SCH ×2 (09:03→22:29)
[2019-02-03] MEDS: Labetalol TAB* 200 MG PO SCH ×2 (09:03→22:28)
--- NOTE | 2019-02-03 10:21 | PN ---
Subjective Date of Service: 02/03/19 Interval History: patient seen today, pain is controlled. awaiting final recommendation from ortho. her culture did grew strep A and antibiotics being adjusted as per ID. plan for 6 weeks course treatment. Picc line ordered for senior care IV abx. No fever or chills Past Medical History: Unchanged from Admission Objective Active Medications: Acetaminophen (Tylenol Tab*) 650 mg PO Q4H PRN PRN Reason: FEVER/PAIN Last Admin: 02/03/19 09:03 Dose: 650 mg Allopurinol (Zyloprim Tab*) 100 mg PO DAILY WITH MEAL [facility] Last Admin: 02/03/19 09:03 Dose: 100 mg Colchicine (Colcrys*) 0.6 mg PO DAILY PRN PRN Reason: Gout Dextrose (Dextrose 50% Vial 50 Ml*) 25 ml IV PUSH .FOR FS < 60 - SS PRN PRN Reason: FS < 60 Ergocalciferol (Drisdol Cap*) 50,000 unit PO WEEKLY [facility] Last Admin: 02/01/19 08:35 Dose: 50,000 unit Famotidine (Pepcid Tab*) 20 mg PO DAILY [facility] Last Admin: 02/03/19 09:03 Dose: 20 mg Ferrous Gluconate (Fergon Tab*) 324 mg PO TID [facility] Last Admin: 02/03/19 09:03 Dose: 324 mg Ceftriaxone Sodium 2 gm/ (Sodium Chloride) 100 mls @ 200 mls/hr IVPB Q24H [facility] Insulin Human Lispro (Humalog*) 0 units SUBCUT ACHS [facility]; Protocol Last Admin: 02/03/19 08:20 Dose: Not Given Labetalol HCl (Trandate Tab*) 200 mg PO BID [facility] Last Admin: 02/03/19 09:03 Dose: 200 mg Magnesium Oxide (Magox 400 Tab*) 400 mg PO BID [facility] Last Admin: 02/03/19 09:03 Dose: 400 mg Morphine Sulfate (Morphine Inj (Syringe)*) 4 mg IV Q2H PRN PRN Reason: SEVERE PAIN Last Admin: 01/31/19 21:16 Dose: 4 mg Non Formulary Med* (Ozempic 1mg /Dose) 1 admin SUBCUT WEEKLY [facility] Last Admin: 02/01/19 10:00 Dose: 1 admin Warfarin Sodium (Coumadin Tab(*)) 3 mg PO DAILY@1700 [facility]; Protocol Last Admin: 02/02/19 17:55 Dose: 3 mg Vital Signs - 8 hr 02/03/19 02/03/19 02/03/19 02:35 03:57 07:39 Temperature 97.4 F 97.3 F Pulse Rate 76 75 Respiratory 18 18 Rate Blood Pressure 144/76 153/66 (mmHg) O2 Sat by Pulse 100 100 99 Oximetry 02/03/19 09:06 Temperature Pulse Rate Respiratory 18 Rate Blood Pressure (mmHg) O2 Sat by Pulse Oximetry Oxygen Devices in Use Now: None Appearance: awake, alert. no distress Eyes: No Scleral Icterus, PERRLA, - Ears/Nose/Mouth/Throat: NL Teeth, Lips, Gums, Mucous Membranes Moist Neck: NL Appearance and Movements; NL JVP, Trachea Midline Respiratory: Symmetrical Chest Expansion and Respiratory Effort, Clear to Auscultation Cardiovascular: NL Sounds; No Murmurs; No JVD Abdominal: NL Sounds; No Tenderness; No Distention Extremities: - - Right Lower extremety dressing in place intact. LLE trace edema Result Diagrams: 02/03/19 05:53 02/03/19 05:53 Microbiology and Other Data: Microbiology 01/31/19 12:15 Anaerobic Culture - Preliminary Wound No Growth Day 1 01/31/19 12:15 Gram Stain - Final Ankle Right Assess/Plan/Problems-Billing Assessment: Mrs Jon is a 58yo F with PMH of morbid obesity with a BMI of 40, type 2 DM with diabetic neuropathy, Charcot foot, CKD stage 4-5, HTN, DVT/PE, Gout, HLD, DJD, right foot ulcer s/p I&D, who presented to ED with c/o worsening right foot wound and drainage. - Patient Problems (1) Right foot infection Current Visit: Yes Status: Acute Code(s): L08.9 - LOCAL INFECTION OF THE SKIN AND SUBCUTANEOUS TISSUE, UNSP SNOMED Code(s): 069683670 Comment: - Right foot diabetic infection, s/p I and D on prior admission and antibiotic treatment. - Suspect osteomyelitis. s/p I&D and debridment 01/31/19 - ID consulted noted requested MRI did reveal evidence of osteomyelitis distal tibia, fibula - Continue Zosyn #5 - will probably change to ceftriaxone as per ID as per her Cutlure positive for group A strep. Picc line insert request ordered (2) Sepsis Current Visit: Yes Status: Acute Comment: - Met sepsis criteria with tachycardia and leukocytosis. - Source is diabetic foot infection and probable osteomyelitis. 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 - Creatinine stable around high 2's -3 - will continue to monitor. - D/C IV hydration. - Diuretics on hold. (4) Hypertension Current Visit: Yes Status: Acute Code(s): I10 - ESSENTIAL (PRIMARY) HYPERTENSION SNOMED Code(s): 23484874 Comment: - Controlled. - Continue Labetalol. (5) Anemia Current Visit: No Status: Acute Code(s): D64.9 - ANEMIA, UNSPECIFIED SNOMED Code(s): 208403191 Comment: - Chronic. - Mixed pic of iron deficiency and anemia of chronic disease - In addition some blood loss post I&D - Monitor and conitnue her Iron 325 mg tid - Continue famotide for GI Prophylaxis (6) Charcot foot due to diabetes mellitus Current Visit: No Status: Acute Code(s): E11.610 - TYPE 2 DIABETES MELLITUS W DIABETIC NEUROPATHIC ARTHROPATHY SNOMED Code(s): 836894565 Comment: - bilateral charcot foot - s/p right foot I&D 01/31/19 - Currenlty on IV abx for her ulcer and infections (7) Pulmonary thromboembolism Current Visit: No Status: Acute Code(s): I26.99 - OTHER PULMONARY EMBOLISM WITHOUT ACUTE COR PULMONALE SNOMED Code(s): 252688729 Comment: Prior hisotry of PE. On wafarin for DVT prophylaxis (8) DVT prophylaxis Current Visit: Yes Status: Acute Code(s): ISN3613 - SNOMED Code(s): 885419581 Comment: - on Warfarin. Status and Disposition: Inpatient.
--- NOTE | 2019-02-03 11:44 | PN ---
Progress Note - Progress Note Date of Service: 02/03/19 SOAP: Subjective: []Pt seen and examined at OOB in chair. She feels very well today without pain in her R ankle. Splint is comfortable. Denies CP, SOB, dizziness or nausea. CRP and WBC decreased from previous. Objective: []Gen: NAD, nontoxic appearing, pleasant and talkative. RLE: Splint CDI. Able to flex and extend MTPs. Decreases sensation distally at baseline though intact to light touch. Cap refill less than two seconds distally Left calf supple and nontender Assessment: []POD #3 Right ankle I&D with distal fibula excision Plan: Cont NWB RLE Keep splint CDI. Incision healing well appearance does not warrant repeat washout. Cont IV abx per ID - ceftriaxone. Cultures growing strep pyogenes Vital Signs Temp 97.6 F 02/03/19 11:26 Pulse 70 02/03/19 11:26 Resp 18 02/03/19 11:26 BP 129/63 02/03/19 11:26 Pulse Ox 100 02/03/19 11:26 Intake & Output 02/02/19 02/03/19 02/03/19 18:59 06:59 18:59 Intake Total 1610 265 230 Balance 1610 265 230 Intake: IV Fluids 20 NS (0.9%) 20 IVPB 110 125 ABX - PIPERACILLIN 110 125 Oral 1500 120 230 Other: Estimated Void Medium Medium # Bowel Movements 1 Estimated Stool Amount Medium # Voids 2 Laboratory Last Values WBC 10.4 10^3/uL (3.5-10.8) 02/03/19 05:53 RBC 2.82 10^6 /uL (3.70-4.87) L 02/03/19 05:53 Hgb 7.4 g/dL (12.0-16.0) L 02/03/19 05:53 Hct 23 % (35-47) L 02/03/19 05:53 MCV 82 fL (80-97) 02/03/19 05:53 MCH 26 pg (27-31) L 02/03/19 05:53 MCHC 32 g/dL (31-36) 02/03/19 05:53 RDW 19 % (10-15) H 02/03/19 05:53 Plt Count 419 10^3/uL (150-450) 02/03/19 05:53 MPV 7.4 fL (7.4-10.4) 02/03/19 05:53 Neut % (Auto) 75.2 % 02/03/19 05:53 Lymph % (Auto) 12.9 % 02/03/19 05:53 [place] % (Auto) 6.8 % 02/03/19 05:53 Eos % (Auto) 4.4 % 02/03/19 05:53 Baso % (Auto) 0.7 % 02/03/19 05:53 Absolute Neuts (auto) 7.8 10^3/ul (1.5-7.7) H 02/03/19 05:53 Absolute Lymphs (auto) 1.3 10^3/ul (1.0-4.8) 02/03/19 05:53 Absolute Monos (auto) 0.7 10^3/ul (0-0.8) 02/03/19 05:53 Absolute Eos (auto) 0.5 10^3/ul (0-0.6) 02/03/19 05:53 Absolute Basos (auto) 0.1 10^3/ul (0-0.2) 02/03/19 05:53 Absolute Nucleated RBC 0.0 10^3/ul 02/03/19 05:53 Nucleated RBC % 0.0 02/03/19 05:53 INR (Anticoag Therapy) 2.56 (0.82-1.09) H 02/01/19 06:13 Sodium 139 mmol/L (135-145) 02/03/19 05:53 Potassium 4.5 mmol/L (3.5-5.0) 02/03/19 05:53 Chloride 109 mmol/L (101-111) 02/03/19 05:53 Carbon Dioxide 24 mmol/L (22-32) 02/03/19 05:53 Anion Gap 6 mmol/L (2-11) 02/03/19 05:53 BUN 26 mg/dL (6-24) H 02/03/19 05:53 Creatinine 2.59 mg/dL (0.51-0.95) H 02/03/19 05:53 Est GFR ( Amer) 22.9 (>60) 02/03/19 05:53 Est GFR (Non-Af Amer) 18.9 (>60) 02/03/19 05:53 BUN/Creatinine Ratio 10.0 (8-20) 02/03/19 05:53 Glucose 83 mg/dL (70-100) 02/03/19 05:53 POC Glucose (mg/dL) 101 mg/dL (70-100) H 02/03/19 11:55 Lactic Acid 1.2 mmol/L (0.5-2.0) 01/29/19 14:43 Calcium 9.3 mg/dL (8.6-10.3) 02/03/19 05:53 Phosphorus 3.1 mg/dL (2.5-5.0) 02/02/19 04:39 Magnesium 2.0 mg/dL (1.9-2.7) 02/03/19 05:53 Total Bilirubin 0.60 mg/dL (0.2-1.0) 01/29/19 14:43 AST 9 U/L (13-39) L 01/29/19 14:43 ALT 6 U/L (7-52) L 01/29/19 14:43 Alkaline Phosphatase 121 U/L (34-104) H 01/29/19 14:43 C-Reactive Protein 102.29 mg/L (<8.01) H 02/03/19 05:53 Total Protein 7.4 g/dL (6.4-8.9) 01/29/19 14:43 Albumin 3.1 g/dL (3.2-5.2) L 01/29/19 14:43 Globulin 4.3 g/dL (2-4) H 01/29/19 14:43 Albumin/Globulin Ratio 0.7 (1-3) L 01/29/19 14:43 Microbiology 01/31/19 12:15 Anaerobic Culture - Preliminary Wound 01/31/19 12:15 Gram Stain - Final Ankle Right Wound Culture - Preliminary Strep Pyogenes (Grp A)
[2019-02-03] MEDS: cefTRIAXone(*) 2 GM in NS 0.9% 100 ML* 100 ML IVPB SCH (11:49)
[2019-02-03] MEDS: Warfarin TAB(*) 3 MG PO SCH (17:49)
--- NOTE | 2019-02-03 20:38 | PN ---
Progress Note - Progress Note Date of Service: 02/03/19 SOAP: Subjective: CC: right ankle infection HPI: 58 year old woman with diabetes and right lateral ankle wound, had I&D of abscess and wound. No pain. No fever, rash, or diarrhea. Objective: Vital Signs Temp 36.6 C 02/03/19 19:32 Pulse 73 02/03/19 19:32 Resp 24 02/03/19 19:32 BP 154/67 02/03/19 19:32 Pulse Ox 100 02/03/19 19:32 Intake & Output 02/03/19 02/03/19 02/04/19 06:59 18:59 06:59 Intake Total 265 1349 Balance 265 1349 Intake: IV Fluids 20 77 NS (0.9%) 20 77 IVPB 125 442 ABX - PIPERACILLIN 125 337 ceftriaxone 105 Oral 120 830 Other: Estimated Void Medium Medium # Bowel Movements 1 1 Estimated Stool Amount Medium Medium # Voids 2 2 Gen:awake, no distress HEENT: no thrush Heart:RRR no murmur Lungs:CTA BL Abd:+BS NT ND soft Skin: No rash MSK: right foot wrapped Laboratory Results - last 24 hr 02/02/19 02/02/19 02/03/19 21:50 21:52 05:53 WBC 10.4 RBC 2.82 L Hgb 7.4 L Hct 23 L MCV 82 MCH 26 L MCHC 32 RDW 19 H Plt Count 419 MPV 7.4 Neut % (Auto) 75.2 Lymph % (Auto) 12.9 [place] % (Auto) 6.8 Eos % (Auto) 4.4 Baso % (Auto) 0.7 Absolute Neuts (auto) 7.8 H Absolute Lymphs (auto) 1.3 Absolute Monos (auto) 0.7 Absolute Eos (auto) 0.5 Absolute Basos (auto) 0.1 Absolute Nucleated RBC 0.0 Nucleated RBC % 0.0 Sodium Potassium Chloride Carbon Dioxide Anion Gap BUN Creatinine Est GFR ( Amer) Est GFR (Non-Af Amer) BUN/Creatinine Ratio Glucose POC Glucose (mg/dL) 75 92 Calcium Magnesium C-Reactive Protein 02/03/19 02/03/19 02/03/19 05:53 08:14 11:55 WBC RBC Hgb Hct MCV MCH MCHC RDW Plt Count MPV Neut % (Auto) Lymph % (Auto) [place] % (Auto) Eos % (Auto) Baso % (Auto) Absolute Neuts (auto) Absolute Lymphs (auto) Absolute Monos (auto) Absolute Eos (auto) Absolute Basos (auto) Absolute Nucleated RBC Nucleated RBC % Sodium 139 Potassium 4.5 Chloride 109 Carbon Dioxide 24 Anion Gap 6 BUN 26 H Creatinine 2.59 H Est GFR ( Amer) 22.9 Est GFR (Non-Af Amer) 18.9 BUN/Creatinine Ratio 10.0 Glucose 83 POC Glucose (mg/dL) 97 101 H Calcium 9.3 Magnesium 2.0 C-Reactive Protein 102.29 H 02/03/19 02/03/19 17:16 17:44 WBC RBC Hgb Hct MCV MCH MCHC RDW Plt Count MPV Neut % (Auto) Lymph % (Auto) [place] % (Auto) Eos % (Auto) Baso % (Auto) Absolute Neuts (auto) Absolute Lymphs (auto) Absolute Monos (auto) Absolute Eos (auto) Absolute Basos (auto) Absolute Nucleated RBC Nucleated RBC % Sodium Potassium Chloride Carbon Dioxide Anion Gap BUN Creatinine Est GFR ( Amer) Est GFR (Non-Af Amer) BUN/Creatinine Ratio Glucose POC Glucose (mg/dL) 61 L 117 H Calcium Magnesium C-Reactive Protein Assessment: 1. Grp A Strep abscess and acute osteomyelitis right ankle 2. Diabetes with neuropathy 3. Morbid obesity Plan: 1. orders written for outpatient infusion at home of ceftriaxone to finish 6 week course. FU with ID 1-2 weeks. She had not been able to do that after her last admission, we discussed need for close follow up.
[2019-02-04] MEDS: Magnesium Oxide TAB* 400 MG PO SCH ×2 (07:46→20:05)
[2019-02-04] MEDS: Ferrous Gluconate TAB* 324 MG TAB PO SCH ×3 (07:46→20:05)
[2019-02-04] MEDS: Labetalol TAB* 200 MG PO SCH ×2 (07:46→20:05)
[2019-02-04] MEDS: Insulin LISPRO* 1 UNITS UNIT SUBCUT SCH ×4 (07:46→20:05)
[2019-02-04] MEDS: Famotidine TAB* 20 MG PO SCH (07:46)
[2019-02-04] MEDS: Allopurinol TAB* 100 MG PO SCH (07:46)
[2019-02-04] MEDS ORDERED: SEMAGLUTIDE INJ SCH (09:00)
[2019-02-04] MEDS: cefTRIAXone(*) 2 GM in NS 0.9% 100 ML* 100 ML IVPB SCH (11:47)
[2019-02-04] MEDS: Warfarin TAB(*) 3 MG PO SCH (16:48)
--- NOTE | 2019-02-04 19:12 | PN ---
Subjective Date of Service: 02/04/19 Interval History: Awake, alert no acute events overnight. Cleared by ortho and ID for discharge. On IV abx. Picc line placed. She was offered STR however patient prefers going home with VNS. Arrangement made for discharge in am for IV abx for 6 weeks total course Past Medical History: Unchanged from Admission Objective Active Medications: Acetaminophen (Tylenol Tab*) 650 mg PO Q4H PRN PRN Reason: FEVER/PAIN Last Admin: 02/03/19 09:03 Dose: 650 mg Allopurinol (Zyloprim Tab*) 100 mg PO DAILY WITH MEAL [facility] Last Admin: 02/04/19 07:46 Dose: 100 mg Colchicine (Colcrys*) 0.6 mg PO DAILY PRN PRN Reason: Gout Dextrose (Dextrose 50% Vial 50 Ml*) 25 ml IV PUSH .FOR FS < 60 - SS PRN PRN Reason: FS < 60 Ergocalciferol (Drisdol Cap*) 50,000 unit PO WEEKLY [facility] Last Admin: 02/01/19 08:35 Dose: 50,000 unit Famotidine (Pepcid Tab*) 20 mg PO DAILY [facility] Last Admin: 02/04/19 07:46 Dose: 20 mg Ferrous Gluconate (Fergon Tab*) 324 mg PO TID [facility] Last Admin: 02/04/19 14:33 Dose: 324 mg Heparin Sodium (Porcine) (Heparin Flush Picc/Ml/Cvc(*)) 0 ml FLUSH 0600,1800 [facility] Last Admin: 02/04/19 16:49 Dose: 1 ml Ceftriaxone Sodium 2 gm/ (Sodium Chloride) 100 mls @ 200 mls/hr IVPB Q24H [facility] Last Admin: 02/04/19 11:47 Dose: 200 mls/hr Insulin Human Lispro (Humalog*) 0 units SUBCUT ACHS [facility]; Protocol Last Admin: 02/04/19 16:45 Dose: Not Given Labetalol HCl (Trandate Tab*) 200 mg PO BID [facility] Last Admin: 02/04/19 07:46 Dose: 200 mg Magnesium Oxide (Magox 400 Tab*) 400 mg PO BID [facility] Last Admin: 02/04/19 07:46 Dose: 400 mg Morphine Sulfate (Morphine Inj (Syringe)*) 4 mg IV Q2H PRN PRN Reason: SEVERE PAIN Last Admin: 01/31/19 21:16 Dose: 4 mg Non Formulary Med* (Ozempic 1mg /Dose) 1 admin SUBCUT WEEKLY [facility] Last Admin: 02/01/19 10:00 Dose: 1 admin Warfarin Sodium (Coumadin Tab(*)) 3 mg PO DAILY@1700 [facility]; Protocol Last Admin: 02/04/19 16:48 Dose: 3 mg Vital Signs - 8 hr 02/04/19 02/04/19 11:15 15:15 Temperature 98 F 97.9 F Pulse Rate 80 76 Respiratory 18 16 Rate Blood Pressure 136/62 142/70 (mmHg) O2 Sat by Pulse 100 100 Oximetry Oxygen Devices in Use Now: None Appearance: awake alert no distress Eyes: No Scleral Icterus, - - EOMI Neck: Trachea Midline Result Diagrams: 02/03/19 05:53 02/03/19 05:53 Microbiology and Other Data: Microbiology 01/31/19 12:15 Anaerobic Culture - Preliminary Wound No Growth Day 1 01/31/19 12:15 Gram Stain - Final Ankle Right Assess/Plan/Problems-Billing Assessment: Mrs Jon is a 58yo F with PMH of morbid obesity with a BMI of 40, type 2 DM with diabetic neuropathy, Charcot foot, CKD stage 4-5, HTN, DVT/PE, Gout, HLD, DJD, right foot ulcer s/p I&D, who presented to ED with c/o worsening right foot wound and drainage. - Patient Problems (1) Right foot infection Current Visit: Yes Status: Acute Code(s): L08.9 - LOCAL INFECTION OF THE SKIN AND SUBCUTANEOUS TISSUE, UNSP SNOMED Code(s): 466539303 Comment: - Right foot diabetic infection, s/p I & D on prior admission and antibiotic treatment. - Suspect osteomyelitis. s/p I&D and debridment 01/31/19 - ID consulted noted requested MRI did reveal evidence of osteomyelitis distal tibia, fibula - S/p Zosyn x 5 days. Switched to ceftriaxone 2gm IV daily on 02/03/19 as per ID as per her Cutlure positive for group A strep. D/c tomorrow for 5 more weeks. - Picc line insert request ordered (2) Sepsis Current Visit: Yes Status: Acute Comment: - Met sepsis criteria with tachycardia and leukocytosis. - Source is diabetic foot infection and probable osteomyelitis. 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 - Creatinine stable around high 2's -3 - will continue to monitor. - D/C IV hydration. - Diuretics on hold. (4) Hypertension Current Visit: Yes Status: Acute Code(s): I10 - ESSENTIAL (PRIMARY) HYPERTENSION SNOMED Code(s): 24941731 Comment: - Controlled. - Continue Labetalol. (5) Anemia Current Visit: No Status: Acute Code(s): D64.9 - ANEMIA, UNSPECIFIED SNOMED Code(s): 212495176 Comment: - Chronic. - Mixed pic of iron deficiency and anemia of chronic disease - In addition some blood loss post I&D - Monitor and conitnue her Iron 325 mg tid - Continue famotide for GI Prophylaxis (6) Charcot foot due to diabetes mellitus Current Visit: No Status: Acute Code(s): E11.610 - TYPE 2 DIABETES MELLITUS W DIABETIC NEUROPATHIC ARTHROPATHY SNOMED Code(s): 591834123 Comment: - bilateral charcot foot - s/p right foot I&D 01/31/19 - Currenlty on IV abx for her ulcer and infections (7) Pulmonary thromboembolism Current Visit: No Status: Acute Code(s): I26.99 - OTHER PULMONARY EMBOLISM WITHOUT ACUTE COR PULMONALE SNOMED Code(s): 598358416 Comment: Prior hisotry of PE. On wafarin for DVT prophylaxis (8) DVT prophylaxis Current Visit: Yes Status: Acute Code(s): OPD6569 - SNOMED Code(s): 185226812 Comment: - on Warfarin. Status and Disposition: Inpatient.
[2019-02-04] MEDS: Acetaminophen TAB* 325 MG PO PRN (20:57)
[2019-02-05] MEDS: Insulin LISPRO* 1 UNITS UNIT SUBCUT SCH (07:37)
[2019-02-05] MEDS: Ferrous Gluconate TAB* 324 MG TAB PO SCH (07:45)
[2019-02-05] MEDS: Labetalol TAB* 200 MG PO SCH (07:45)
[2019-02-05] MEDS: Allopurinol TAB* 100 MG PO SCH (07:45)
[2019-02-05] MEDS: Famotidine TAB* 20 MG PO SCH (07:45)
[2019-02-05] MEDS: Magnesium Oxide TAB* 400 MG PO SCH (07:45)
[2019-02-05 07:53] VITALS: BP 154/75
--- NOTE | 2019-02-05 15:24 | DS ---
CC: Dr. Cayla Cervantes; Dr. Kelechi Ferguson; Dr. Thanh Wood DISCHARGE SUMMARY: DATE OF ADMISSION: 01/29/19 DATE OF DISCHARGE: 02/05/19 PRIMARY CARE PROVIDER: Dr. Cayla Cervantes. FINAL DISCHARGE DIAGNOSES: 1. Right foot infection status post diabetic ulcers with osteomyelitis of the distal fibula and tibi a. 2. Sepsis, resolved, from her diabetic foot infection and osteomyelitis. 3. Chronic kidney disease, stage 4, secondary to diabetic nephropathy. 4. Hypertension. 5. Anemia, mixed picture of iron deficiency and chronic disease. 6. Diabetes mellitus. 7. Previous history of pulmonary thromboembolism. HOSPITAL COURSE: The patient presented to [facility] on 01/29/19 for right foot pain with known history of diabetes mellitus, morbid obesity with BMI greater than 40, bilateral Charcot foot, chronic anemia, on anticoagulation from history of thromboembolism, hyperlipidemia, hypertension, an d chronic kidney disease, stage 4. In the emergency room on admission, it was noted that her right f oot was infected with foul drainage smell to it. Therefore, she was admitted to the Medical Service under the sepsis protocol given her leukocytosis 17,000 and tachycardia, was started empirically on v ancomycin and Zosyn, and consultation with Orthopedic and Infectious Disease was implemented. It tu uld be noted that the patient was in September 2018 admitted and was in rehab for similar reason and did not follow up with her outpatient appointment with Infectious Disease, but she claims that she was f ollowing with [facility]. Therefore during the hospital course, it was recommended to unde rgo surgical debridement and wound debridement. She underwent the procedure on 01/31/19 for debrideme nt of the right hind foot and distal fibulectomy by Dr. Thanh Wood. She remained in the hospital under the Medical Service while further working up her infection and waiting for the culture either from the blood or the wound to further guide the antibiotic therapy. The wound culture from the righ t ankle did grow Streptococcus pyogenes group A which was pansensitive; therefore under the guidance and recommendation of Infectious Disease, her antibiotic was downgraded to ceftriaxone 2 g IV daily, a PICC line was inserted in the right forearm, and social case reviewer was consulted for arranging pl acement for the patient's discharge. Meanwhile, she was maintained on the Medical Service with consu ltation with the Orthopedic throughout and the last note documented in the chart on 02/03/19 from [facility], where they deemed her surgical wound to be healing well. They did not feel there is need fo r any repeat washout and they recommended to keep the splint CDI, continue nonweightbearing on the ri ght lower extremity, and follow up with Orthopedic with Dr. Thanh Wood. Her discharge was held a nd delayed for approximately 1 to 2 days until the physical and social obstacles were resolved includ ing walker that was able to accommodate her living situation, also until enough friends and neighbors were available to help her getting in and out of the 3 steps that preceded her house and arranging f or visiting nurse service that will be able to accommodate her outpatient antibiotic infusion. Final ly on 02/05/19, most of the arrangements were made in place with the plan to have antibiotic done at home at 11 o'clock this morning. She was seen first thing this morning, evaluated at bedside, and he r vitals were in stable condition. She was sitting, resting comfortably, watching news on her iPad. Therefore, after my evaluation, I deemed her clinically stable for her to be discharged today. PHYSICAL EXAMINATION ON DISCHARGE: Her vital signs 97.8, pulse 80, respiratory rate 18, saturation 1 00% on room air, blood pressure 141/69. Generally, she is pleasant, sitting in chair. The right leg is elevated on the stool with the dressing in place as per orthopedic wound dressing with CDI and ferrari rd cast in place. Her lungs clear to auscultation bilateral. Cardiovascular: S1, S2. Regular rate and rhythm. I did not hear any murmur. Abdomen: Positive bowel sounds, obese, soft, nontender. No rebound. No guarding. Lower extremities: Her right lower extremity had the postsurgical cast in p lace. She is able to move her toes at the end of the cast and denies any significant pain. Left low er extremity, she does have +2 edema. INPATIENT DIAGNOSTIC STUDIES: CBC multiple were significant for admission WBC 18,000, her discharge was down to 10; hemoglobin and hematocrit fluctuating between 8.7 and 7.4, which is chronic, on iron supplementation. INR which was held on admission for her surgery and she was discharged with INR of 2.5, therapeutic. Chemistry, multiple, significant for her baseline known of chronic kidney disease with baseline creat inine ranging between 3.02 and as low as 2.59 on discharge. CRP expectedly high at 378 on admission, was down to 102 four days later. Diagnostic imaging: On admission, she had an x-ray of the right foot, revealed anatomic alignment of the right tibia intramedullary fixation and some radiologic evidence consistent with Charcot foot, c ould not rule out osteomyelitis. This was followed with MRI of the lower extremity on 02/01/19, whic h confirmed the presence of osteomyelitis involving the right distal tibia and the right calcaneus na vicular cuneiform and cuboid bone with cellulitis of the right hind foot. No abscess was identified. Ultrasound of the lower leg dated 01/29/19, there was no evidence of deep vein thrombosis. X-ray of the lower extremity on 01/29/19 as outlined already above. Microbiology: Wound cultures positive for Streptococcus pyogenes A, pansensitive including ceftriaxo ne. CONSULTATION: 1. Orthopedics with Dr. Thanh Wood. 2. Infectious Disease with Dr. Kelechi Ferguson. PROCEDURES: I and D and debridement of the wound twice on 01/31/19 and followed on 02/03/19. DISCHARGE MEDICATIONS: 1. Ceftriaxone 2 g IV daily to complete a 6 weeks' course. She had 1 week course inpatient, she has 5 weeks left, total of 35 days. 2. Heparin flush for her PICC line. 3. Iron gluconate 325 three times a day. 4. Vitamin D 50,000 once a week. 5. Tylenol p.r.n. 6. Famotidine 20 daily. 7. Ozempic 1 injection weekly as per home regimen. 8. Lasix 20 mg daily. 9. Allopurinol 100 daily. 10. Colchicine 0.6 every day as needed. 11. Warfarin 2.5 daily. 12. Labetalol 200 b.i.d. The patient was told to withhold her chlorthalidone. DISCHARGE INSTRUCTIONS: The patient to follow up with the orthopedic surgery group and specifically with Dr. Wood. The office was notified of the discharge and the plan was to get in touch with the patient at home. The patient was made aware if by Thursday she does not receive call to call first ely lewis on Thursday or Thursday to make sure she has a followup appointment with Dr. Wood. Follow up with Dr. Kelechi Ferguson in 1 to 2 weeks. Follow up with her primary care provider in 1 to 2 weeks. The patient was instructed to have her INR done this Thursday. Lab requisition was provided. It can b e done via the visiting nurse. I requested to send a copy to her primary care for further adjustment of her Coumadin. DISCHARGE CONDITION: Stable. DISCHARGE DISPOSITION: Home. [id number]/[facility] #: [id number]
== END 2019-02-05 09:30 | disposition home or self-care (01) | DRG 710 ==
LOC: ED 12:28 → MEDTELE 17:00 → MED 01-31 21:00
PROVIDERS: ADMIT Internal Medicine; ATTEND Internal Medicine
PROC: 0QBG0ZZ Excision of Right Tibia, Open Approach (ICD-10-PCS; 2019-01-31)
PROC: 0QBJ0ZZ Excision of Right Fibula, Open Approach (ICD-10-PCS; 2019-01-31)
PROC: 0QBL0ZZ Excision of Right Tarsal, Open Approach (ICD-10-PCS; principal; 2019-01-31 10:15)
PROC: 02HV33Z Insertion of Infusion Device into Superior Vena Cava, Percutaneous Approach (ICD-10-PCS; 2019-02-03)
DX: A40.0 Sepsis due to streptococcus, group A (principal); M86.8X6 Other osteomyelitis, lower leg; N18.5 Chronic kidney disease, stage 5; L02.415 Cutaneous abscess of right lower limb; L03.115 Cellulitis of right lower limb; Z68.41 Body mass index [BMI] 40.0-44.9, adult; E11.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 with diabetic neuropathic arthropathy; E11.22 Type 2 diabetes mellitus with diabetic chronic kidney disease; E11.69 Type 2 diabetes mellitus with other specified complication; E78.00 Pure hypercholesterolemia, unspecified; M19.90 Unspecified osteoarthritis, unspecified site; M10.9 Gout, unspecified; I12.9 Hypertensive chronic kidney disease with stage 1 through stage 4 chronic kidney disease, or unspecified chronic kidney disease; E11.21 Type 2 diabetes mellitus with diabetic nephropathy; M06.9 Rheumatoid arthritis, unspecified; H35.30 Unspecified macular degeneration; E11.621 Type 2 diabetes mellitus with foot ulcer; L97.519 Non-pressure chronic ulcer of other part of right foot with unspecified severity; D50.9 Iron deficiency anemia, unspecified; E78.5 Hyperlipidemia, unspecified; D63.1 Anemia in chronic kidney disease; E66.01 Morbid (severe) obesity due to excess calories; Z86.711 Personal history of pulmonary embolism; Z87.891 Personal history of nicotine dependence; Z86.718 Personal history of other venous thrombosis and embolism; Z79.01 Long term (current) use of anticoagulants; Z79.899 Other long term (current) drug therapy
CPT/HCPCS: 36415; 80048; 80053; 83605; 83735; 84100; 85025; 85610; 86140; 87070; 87073; 87077; 87186; 87205; 88304; 88311; 96365; 99283; A9270-GY; C1751; J0696; J1644; J2001; J2250; J2270; J2543; J2704; J3010

== ENCOUNTER 2019-02-05 12:00 | Emergency (ER) | payer OTHER ==
--- NOTE | 2019-02-05 12:09 | ED ---
Complex/Multi-Sys Presentation - HPI Summary HPI Summary: This patient is a 58 year old female presenting to [facility] with a chief complaint of a clogged PICC line. She states she was discharged this morning s/p emergency surgery for a diabetic ulcer on her right foot. She states the PICC line was flushed this morning, and now nothing can go through it and it cannot be flushed. She states she was unable to get into her house following discharge and she did not have heat at home as her propane tank ran out. She states this is being taken care of now. She would just like her PICC line to work so she can go home. The PICC line is located on her right upper arm. She has no other complaints. - History Of Current Complaint Hx Obtained From: Patient Onset/Duration: Lasting Hours - Allergies/Home Medications Allergies/Adverse Reactions: Allergies Allergy/AdvReac Type Severity Reaction Status Date / Time No Known Allergies Allergy Verified 01/29/19 12:35 PMH/Surg Hx/FS Hx/Imm Hx Endocrine/Hematology History: Reports: Hx Anticoagulant Therapy - for Hx PE, coumadin , Hx Diabetes, Hx Anemia Denies: Hx Thyroid Disease Cardiovascular History: Reports: Hx Embolism - Pulmonary Embolism, Hx Hypercholesterolemia, Hx Hypertension - controlled with meds Denies: Hx Coronary Artery Disease, Hx Pacemaker/ICD Respiratory History: Reports: Hx Pulmonary Embolism - in the past Denies: Hx Asthma, Hx Chronic Obstructive Pulmonary Disease (COPD) GI History: Denies: Hx Ulcer History: Reports: Hx Chronic Renal Failure, Other Problems/Disorders - Reports kidney problems Denies: Hx Kidney Stones Musculoskeletal History: Reports: Hx Arthritis - possible RA in hands, Hx Rheumatoid Arthritis Sensory History: Reports: Hx Cataracts - right eye, Hx Contacts or Glasses - glasses for reading, Hx Macular Degeneration, Hx Vision Problem - Retinal hemorrhage Denies: Hx Deafness, Hx Hearing Aid Opthamlomology History: Reports: Hx Cataracts - right eye, Hx Contacts or Glasses - glasses for reading, Hx Macular Degeneration, Hx Vision Problem - Retinal hemorrhage Neurological History: Denies: Hx Dementia Psychiatric History: Denies: Hx Panic Disorder, Hx Schizophrenia - Surgical History Surgery Procedure, Year, and Place: left foot- Surgery for diabetic ulcer. R leg- medical machinery. right ankle Hx Anesthesia Reactions: No - Immunization History Date of Tetanus Vaccine: UTD Date of Influenza Vaccine: 2017 Infectious Disease History: Denies: Hx Hepatitis, Hx Human Immunodeficiency Virus (HIV) - Family History Known Family History: Positive: Cardiac Disease, Hypertension, Diabetes Family History: NO FAMILY H/O GOUT OR RA - Social History Alcohol Use: Rare Hx Substance Use: No Substance Use Type: Reports: None Hx Tobacco Use: Yes Smoking Status (MU): Former Smoker Type: Cigarettes Amount Used/How Often: smoked on and off for 15 years less than 1/2ppd Review of Systems Negative: Fever Positive: Other - Clogged PICC line. All Other Systems Reviewed And Are Negative: Yes Physical Exam - Summary Physical Exam Summary: Constitutional: Well-developed, Well-nourished, Alert. (-) Distressed. PICC line noted left upper arm. Wound dressing intact on the right foot. Skin: Warm, Dry HENT: Normocephalic; Atraumatic Eyes: Conjunctiva normal Neck: Musculoskeletal ROM normal neck. (-) JVD, (-) Stridor, (-) Tracheal deviation Cardio: Rhythm regular, rate normal, Heart sounds normal; Intact distal pulses; Radial pulses are 2+ and symmetric. (-) Murmur Pulmonary/Chest wall: Effort normal. (-) Respiratory distress, (-) Wheezes, (-) Rales Abd: Soft, (-) tenderness, (-) Distension, (-) Guarding, (-) Rebound Musculoskeletal: (-) Edema Lymph: (-) Cervical adenopathy Neuro: Alert, Oriented x3 Psych: Mood and affect Normal Triage Information Reviewed: Yes Vital Signs On Initial Exam: Temp Pulse Resp BP Pulse Ox 97.1 F 80 16 183/83 99 02/05/19 12:02 02/05/19 12:02 02/05/19 12:02 02/05/19 12:02 02/05/19 12:02 Vital Signs Reviewed: Yes Procedures - Sedation Patient Received Moderate/Deep Sedation with Procedure: No Re-Evaluation - Re-Evaluation First Eval Re-Evaluation Time: 13:15 Comment: Patient received altepase medication to break up the clot in the PICC line, and this worked succesful in flushing. Patient now receiving dose of ceftriaxone.Patient will be discharged to home after ABx are complete. Complex Multi-Symp Course/Dx Course Of Treatment: This patient is a 58 year old female presenting to [facility] with a chief complaint of a clogged PICC line. Patient received alteplase recombinant medication to break up the clot in the PICC line, and this worked succesful in flushing. Patient received dose of ceftriaxone. Plan for discharge was discussed with the patient and she was agreeable with this plan. - Diagnoses Provider Diagnoses: Occluded PICC line Discharge ED - Sign-Out/Discharge Documenting (check all that apply): Patient Departure - Discharge - Discharge Plan Condition: Stable Disposition: HOME Patient Education Materials: How to Care for Your PICC (Peripherally Inserted Central Catheter) (ED) Referrals: Cayla Cervantes MD [Primary Care Provider] - 2 Days Additional Instructions: Follow up with your Primary Care Provider. - Attestation Statements Document Initiated by Tyron: Yes Documenting Scribe: Thanh Humphries Provider For Whom Tyron is Documenting (Include Credential): Joao Leonard DO [employer] Attestation: IThanh, scribed for Joao Leonard DO on 02/05/19 at 1319. Status of Scribe Document: Ready
[2019-02-05] MEDS ORDERED: Alteplase (CATHFLO)* 2 MG VIAL IV ONE (12:12)
[2019-02-05 16:33] VITALS: BP 147/79
== END 2019-02-05 14:05 | disposition home or self-care (01) ==
LOC: ED 12:00
DX: T82.898A Other specified complication of vascular prosthetic devices, implants and grafts, initial encounter (principal); Y84.9 Medical procedure, unspecified as the cause of abnormal reaction of the patient, or of later complication, without mention of misadventure at the time of the procedure; Y92.9 Unspecified place or not applicable; M06.9 Rheumatoid arthritis, unspecified; Z87.891 Personal history of nicotine dependence; Z79.01 Long term (current) use of anticoagulants; Z86.711 Personal history of pulmonary embolism; E78.00 Pure hypercholesterolemia, unspecified; D64.9 Anemia, unspecified; I12.9 Hypertensive chronic kidney disease with stage 1 through stage 4 chronic kidney disease, or unspecified chronic kidney disease; E11.22 Type 2 diabetes mellitus with diabetic chronic kidney disease; N18.9 Chronic kidney disease, unspecified; M19.90 Unspecified osteoarthritis, unspecified site
CPT/HCPCS: 96374; 96375; 99283; J2997

== ENCOUNTER 2019-02-06 12:03 | Inpatient (IN) | payer OTHER ==
[2019-02-06] MEDS ORDERED: Alteplase (CATHFLO)* 2 MG VIAL IV ONE (12:13)
--- NOTE | 2019-02-06 12:13 | ED ---
Complex/Multi-Sys Presentation - HPI Summary HPI Summary: 58 year old F arriving via ambulance from home where she lives alone complains of clogged PICC line since 11:00 today 02/06. Had PICC line placed Thursday at [facility]. Patient has home nurse who administers medication injections once a day in the morning. Home nurse unable to flush PICC line this morning and could not administer medications. Same happened yesterday 02/05. Seen in the ED yesterday. Patient received her medications yesterday in the ED before she was discharged home. Home nurse tried to use PICC line today 02/06 and was unable to. Patient recently had surgery on her right lower extremity. On Rocephin. Patient complaining of pain in right lower extremity from foot radiating up to knee. Patient states she will follow up with orthopedics this week but no appointment scheduled yet. Usually takes Tylenol for pain. Pain rated 5/10 in severity. Symptoms aggravated by nothing. Symptoms alleviated by nothing. Medications reviewed. Allergies noted. - History Of Current Complaint Hx Obtained From: Patient Onset/Duration: Lasting Hours, Still Present Timing: Constant Severity Currently: Moderate - 5/10 Aggravating Factor(s): Nothing Alleviating Factor(s): Nothing - Allergies/Home Medications Allergies/Adverse Reactions: Allergies Allergy/AdvReac Type Severity Reaction Status Date / Time No Known Allergies Allergy Verified 01/29/19 12:35 PMH/Surg Hx/FS Hx/Imm Hx Endocrine/Hematology History: Reports: Hx Anticoagulant Therapy - for Hx PE, coumadin , Hx Diabetes, Hx Anemia Denies: Hx Thyroid Disease Cardiovascular History: Reports: Hx Embolism - Pulmonary Embolism, Hx Hypercholesterolemia, Hx Hypertension - controlled with meds Denies: Hx Coronary Artery Disease, Hx Pacemaker/ICD Respiratory History: Reports: Hx Pulmonary Embolism - in the past Denies: Hx Asthma, Hx Chronic Obstructive Pulmonary Disease (COPD) GI History: Denies: Hx Ulcer History: Reports: Hx Chronic Renal Failure, Other Problems/Disorders - Reports kidney problems Denies: Hx Kidney Stones Musculoskeletal History: Reports: Hx Arthritis - possible RA in hands, Hx Rheumatoid Arthritis Sensory History: Reports: Hx Cataracts - right eye, Hx Contacts or Glasses - glasses for reading, Hx Macular Degeneration, Hx Vision Problem - Retinal hemorrhage Denies: Hx Deafness, Hx Hearing Aid Opthamlomology History: Reports: Hx Cataracts - right eye, Hx Contacts or Glasses - glasses for reading, Hx Macular Degeneration, Hx Vision Problem - Retinal hemorrhage Neurological History: Denies: Hx Dementia Psychiatric History: Denies: Hx Panic Disorder, Hx Schizophrenia - Surgical History Surgery Procedure, Year, and Place: left foot- Surgery for diabetic ulcer. R leg- medical machinery. right ankle Hx Anesthesia Reactions: No - Immunization History Date of Tetanus Vaccine: UTD Date of Influenza Vaccine: 2018 Infectious Disease History: Denies: Hx Hepatitis, Hx Human Immunodeficiency Virus (HIV) - Family History Known Family History: Positive: Cardiac Disease, Hypertension, Diabetes Family History: NO FAMILY H/O GOUT OR RA - Social History Alcohol Use: Rare Hx Substance Use: No Substance Use Type: Reports: None Hx Tobacco Use: Yes Smoking Status (MU): Former Smoker Type: Cigarettes Amount Used/How Often: smoked on and off for 15 years less than 1/2ppd Review of Systems Positive: Other - clogged PICC line Positive: Other - pain in right lower extremity from foot radiating up to knee All Other Systems Reviewed And Are Negative: Yes Physical Exam - Summary Physical Exam Summary: Constitutional: Well-developed, Well-nourished, Alert. (-) Distressed Skin: Warm, Dry HENT: Normocephalic; Atraumatic Eyes: Conjunctiva normal Neck: Musculoskeletal ROM normal neck. (-) JVD, (-) Stridor, (-) Tracheal deviation Cardio: Rhythm regular, rate normal, Heart sounds normal; Intact distal pulses; Radial pulses are 2+ and symmetric. (-) Murmur Pulmonary/Chest wall: Effort normal. (-) Respiratory distress, (-) Wheezes, (-) Rales Abd: Soft, (-) tenderness, (-) Distension, (-) Guarding, (-) Rebound Musculoskeletal: (-) Edema. PICC line present in the left bicep. She has a hard cast with randy wrap on right foot Lymph: (-) Cervical adenopathy Neuro: Alert, Oriented x3 Psych: Mood and affect Normal Triage Information Reviewed: Yes Vital Signs Reviewed: Yes Procedures - Sedation Patient Received Moderate/Deep Sedation with Procedure: No Diagnostics - Laboratory Lab Statement: Any lab studies that have been ordered have been reviewed, and results considered in the medical decision making process. - Radiology CXR Radiology Interpretation Completed By: Radiologist Summary of Radiographic Findings: LINES AND TUBES ABOVE. LOW LUNG VOLUMES. NO ACTIVE CARDIOPULMONARY DISEASE. ED PHYSICIAN HAS REVIEWED THIS REPORT. Re-Evaluation - Re-Evaluation First Eval Re-Evaluation Time: 13:57 Comment: hospice case manager agrees with long term admission. will admit patient Complex Multi-Symp Course/Dx Course Of Treatment: Patient is here with complications with her PICC line. Patient was seen here yesterday for similar symptoms after being discharged initially morning from the hospital. Patient's PICC line started working yesterday but became dysfunctional again. Patient could not get her PICC line working here today after giving Cathflo and in multiple different positions. Patient also change her mind about going to a short-term rehabilitation facility. Patient was given a dose of IV Rocephin. Patient was admitted to the hospital for long term care for rehabilitation placement and PICC placement tomorrow. - Diagnoses Provider Diagnoses: Central line complication, Osteomyelitis of right lower extremity - Physician Notifications Discussed Care Of Patient With: Lidia Warren Time Discussed With Above Provider: 13:38 Instructed by Provider To: Other - Dr. Warren hospitalist states she will try to arrange PICC line placement for tomorrow 02/07 as outpatient. Discharge ED - Sign-Out/Discharge Documenting (check all that apply): Patient Departure - Discharge Plan Condition: Stable Disposition: ADMITTED TO [facility] Referrals: Cayla Cervantes MD [Primary Care Provider] - - Billing Disposition and Condition Condition: STABLE Disposition: Admitted to [facility] - Attestation Statements Document Initiated by Scribe: Yes Documenting Scribe: Beverly Hunter Provider For Whom Tyron is Documenting (Include Credential): Abraham Schreiber MD Scribe Attestation: Beverly Mc, scribed for Abraham Schreiber MD on 02/06/19 at 1414. Scribe Documentation Reviewed: Yes Provider Attestation: The documentation as recorded by the Beverly churchill accurately reflects the service I personally performed and the decisions made by me, Abraham Schreiber MD Status of Scribe Document: Viewed
[2019-02-06] MEDS ORDERED: Acetaminophen TAB* 325 MG PO ONE (12:14)
[2019-02-06 13:50] LABS: INR 2.6 (0.82-1.09)
[2019-02-06 14:44] LABS: ABS Basophils 0.1 10^3/ul (0-0.2); ABS Eosinophils 0.2 10^3/ul (0-0.6); ABS Lymphocytes 1.6 10^3/ul (1.0-4.8); ABS Monocytes 0.6 10^3/ul (0-0.8); ABS Neutrophils 7.4 10^3/ul (1.5-7.7); Eosinophil % 2.5 %; Hematocrit 27 % (35-47); Hemoglobin 8.5 g/dL (12.0-16.0); Mean Corpuscular HGB Conc 32 g/dL (31-36); Mean Corpuscular Hemoglobin 26 pg (27-31); Mean Corpuscular Volume 83 fL (80-97); Mean Platelet Volume 6.8 fL (7.4-10.4); Nucleated Red Blood Cells % 0.1; Platelet Count 497 10^3/uL (150-450); Red Blood Count 3.24 10^6 /uL (3.70-4.87); Red Cell Distribution Width 19 % (10-15); White Blood Count 9.8 10^3/uL (3.5-10.8)
[2019-02-06 14:51] LABS: Albumin 3.1 g/dL (3.2-5.2); Albumin/Globulin Ratio 0.8 (1-3); BUN/Creatinine Ratio 9.3 (8-20); Calcium 9.3 mg/dL (8.6-10.3); EGFR African American 28.4 (>60); EGFR Non-African American 23.5 (>60); Potassium 4.5 mmol/L (3.5-5.0); Total Bilirubin 0.3 mg/dL (0.2-1.0); Total Protein 7.1 g/dL (6.4-8.9)
[2019-02-06] MEDS ORDERED: Acetaminophen TAB* 325 MG PO PRN (15:38)
[2019-02-06] MEDS ORDERED: Ondansetron INJ* 2 MG/ML VIAL IV PRN (15:38)
[2019-02-06] MEDS ORDERED: Al Hydrox/Mg Hydrox/Simet LIQ* 30 ML UDC PO PRN (15:38)
[2019-02-06] MEDS ORDERED: Senna TAB 8.6 mg* TAB PO PRN (15:38)
[2019-02-06] MEDS ORDERED: SEMAGLUTIDE INJ SCH (15:45)
[2019-02-06] MEDS ORDERED: SODIUM CHLORIDE IVPB SCH (15:45)
[2019-02-06] MEDS ORDERED: CEFTRIAXONE IVPB SCH (15:45)
[2019-02-06] MEDS ORDERED: Ergocalciferol CAP* 50000 UNIT PO SCH (16:00)
[2019-02-06] MEDS ORDERED: Dextrose 50% VIAL 50 ml IV PUSH PRN (16:00)
[2019-02-06] MEDS ORDERED: cefTRIAXone(*) 2 GM in NS 0.9% 100 ML* 100 ML IVPB ONE (16:00)
[2019-02-06] MEDS: Warfarin TAB(*) 2.5 MG PO SCH (18:14)
--- NOTE | 2019-02-06 18:34 | HP ---
CC: Dr. Cyala Cervantes* HISTORY AND PHYSICAL: DATE OF ADMISSION: 02/06/19 PROVIDER: NIKIA Weeks ATTENDING PHYSICIAN WHILE IN HOSPITAL: Dr. Lidia Warren* (dictated by NIKIA Weeks). PRIMARY CARE PROVIDER: Dr. Cayla Cervantes. CHIEF COMPLAINT: PICC occlusion. HISTORY OF PRESENT ILLNESS: Lillian Forbes is a 58-year-old black female with past medical history significant for diabetes mellitus type 2, diabetic neuropathy, anemia of chronic disease, hypertension, hyperlipidemia, chronic kidney disease, history of DVT/PE with recent hospitalization for right foot infection with right lower extremity osteomyelitis, who presented to the emergency department due to occlusion of her PICC at home. The patient was discharged on 02/05/19 with plan for ceftriaxone for 6 weeks through her PICC line at home. The patient reportedly has been to emergency department twice already since her discharge yesterday, initially for a social issue regarding not having heat at home, which has reportedly since been resolved per patient. She reportedly needed to fill her pro painting, which she is not used to and she was not able to do while she was in the hospital. Today, she is coming to emergency department because her PICC line is occluded, she is worried that she is going to continue having issues with her PICC line. She is now agreeable to rehab and subacute nursing facility and she felt this would be better for her as she would not have to be concerned about her PICC line as it would be overseen by a nurse daily. She has been using a wheelchair at home for months and she is at her ambulatory baseline. The patient otherwise has no complaints. She felt that the site of her PICC line on her left upper extremity was minimally tender to touch earlier today, but this has resolved. She otherwise denies fever, chills, pain in lower extremities, difficulty breathing, chest pain, abdominal pain, nausea, vomiting. She has been following her nonweightbearing status of her right lower extremity and the splint has been intact since discharge yesterday. Case management was involved in the admission of this patient as a assisted care patient and the patient is agreeable to this. ED COURSE: The patient arrived to the emergency department. Her vital signs were temperature 98.2 degrees Fahrenheit; pulse 80 beats per minute; respiratory rate 16 respirations per minute; oxygen saturation 93% on room air; blood pressure 171/75, later 124/72. She was given Tylenol and Cathflo in the emergency department and the hospitalists were asked to evaluate the patient as a assisted admission. PAST MEDICAL HISTORY: 1. Anemia of chronic disease. 2. Diabetes mellitus type 2. 3. Diabetic neuropathy. 4. Bilateral Charcot foot. 5. 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 6. History of DVT/PE, on Coumadin. 7. Protein S deficiency. 8. Gout. 9. Hyperlipidemia. 10. Hypertension. 11. Osteoarthritis. PAST SURGICAL HISTORY: 1. Recent right lower extremity diabetic wound incision and debridement in the operating room on 01/31/19 of the right foot with wound cultures positive for Strep pyogenes. 2. Previous history of saucerization for a right foot osteomyelitis. 3. Bilateral LASIK surgery. 4. Rods and pins in her right lower extremity due to trauma. HOME MEDICATIONS: 1. Chlorthalidone 25 mg p.o. daily (the patient was told to hold this since her discharge yesterday). 2. Ceftriaxone 2 g IV daily. 3. Allopurinol 100 mg p.o. daily. 4. Coumadin 2.5 mg p.o. daily. 5. Semaglutide 1 injection weekly. 6. Labetalol 200 mg p.o. b.i.d. 7. Heparin flushes for the PICC daily. 8. Lasix 20 mg p.o. daily. 9. Ferrous sulfate 325 mg p.o. daily. 10. Famotidine 20 mg p.o. daily. 11. Colchicine 0.6 mg p.o. daily p.r.n. gout flare. 12. Vitamin D 50,000 units p.o. weekly. 13. Tylenol 650 mg p.o. q.4 hours p.r.n. pain. ALLERGIES: No known drug allergies. FAMILY HISTORY: The patient has positive history of diabetes mellitus type 2 in both of her parents, who are . SOCIAL HISTORY: The patient lives alone. She has an adoptive son who is actually her biologic nephew, who is her healthcare proxy, his name is Flakito Forbes, his phone number is [phone], he lives in [place]. 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 She drinks less than 1 alcoholic beverage per month and she denies drug use and tobacco use. REVIEW OF SYSTEMS: An 11-point review of systems was completed and all pertinent positives and negatives are above in the HPI. All other systems are negative. PHYSICAL EXAMINATION GENERAL: Well-developed, well-nourished black female, lying in hospital bed, appearing comfortable, in no acute distress. HEENT: Eyes: PERRL. Sclerae anicteric. ENT: Mucous membranes are moist. LUNGS: Clear to auscultation throughout. CARDIO: Regular rate and rhythm without murmurs, rubs, or gallops. ABDOMEN: Soft, nontender, nondistended. EXTREMITIES: Right lower extremity with splint and YE wraps over gauze. YE wraps and gauze are clean, dry, and intact. The patient has no streaking or erythema of the lower extremities. No clubbing or cyanosis of extremities. NEURO: The patient is alert and oriented x3. No focal deficits. Able to move all extremities. SKIN: Warm, dry, and intact. DIAGNOSTIC STUDIES/LAB DATA: White blood cell count 9.8, hemoglobin 8.5, hematocrit 27, platelet count 497. Sodium 139, potassium 4.5, chloride 108, carbon dioxide 23, anion gap 8, BUN 20, creatinine 2.15, glucose 112, calcium 9.3. Total bilirubin 0.3, AST 9, ALT 6, alk phos 110. INR 2.6. Chest x-ray, lines and tubes: Left side PICC line is noted with the tip overlying the confluence of left brachiocephalic vein and the superior vena cava. Low lung volumes. No active cardiopulmonary disease. ASSESSMENT AND PLAN: Lillian Forbes is a 58-year-old black female with past medical history significant for diabetes mellitus type 2; diabetic neuropathy; chronic kidney disease; history of DVT and pulmonary embolism, on Coumadin; and hypertension with recent hospitalization and discharge on for right lower extremity osteomyelitis. The patient will be admitted as a assisted patient for: 1. Difficulty caring herself related to PICC. The patient's PICC should be evaluated in the hospital tomorrow. The patient seemed to agree that her care would be better coordinated if she is in a nursing facility. This was investigated during her last hospitalization and she preferred to go home. Now , she is more willing to do so as she has realized that it would be more difficult to care for herself at home. She will receive her ceftriaxone via peripheral IV today as her PICC is occluded despite Cathflo. We will continue heparin flushes as directed. 2. Right lower extremity osteomyelitis. IV antibiotics would be continued as previously mentioned. PICC care as above. The patient is supposed to be following up with Dr. Wood in the outpatient setting and it would likely be of benefit if one of the orthopedic providers could evaluate her at least when she is here and I will discuss that with their care team. 3. Diabetes. The patient had a recent hemoglobin A1c last month of 6.3%. She takes semaglutide at home. I will continue that while she is in the hospital; however, it is nonformulary and I am unsure if she is able to have a friend bring it to the hospital, although she does believe the friend would be able to bring into the nursing facility once this is found. In the meantime, I will order a lispro sliding scale insulin q.a.m. for coverage. She will have a diabetic diet as well. 4. Hypertension. The patient's chlorthalidone was directed to be held after her recent discharge; however, her GFR has greatly improved and it would be reasonable to restart it now and I will continue her home labetalol as well. 5. Anemia. The patient's H and H have increased since her hospital stay. I will continue her ferrous sulfate. She also has an underlying component of anemia of chronic disease. 6. Thrombocytosis. The patient has minimally elevated platelet count which is likely reactive in the setting of her recent debridement and infection. Her right ankle wound was positive for Strep pyogenes. However, she has no other signs of worsening infection. She is afebrile without leukocytosis and has had antibiotics for several days at this point. 7. Chronic lower extremity edema. The patient is on Lasix. She has no known heart failure and the recent EF was within normal limits on a recent echocardiogram. 8. Gout. Continue amlodipine. 9. Protein S deficiency. The patient has a history of venous thromboembolism and we will continue her home Coumadin, daily INRs. 10. FEN: Carbohydrate consistent diet. No fluids needed at this time. Electrolytes are within normal limits. 11. Code status: The patient is a full code. 12. DVT prophylaxis: The patient is fully anticoagulated on Coumadin. EARLY DISCHARGE PLANNING: Case management, Mayelin, has been involved with the process of a patient's investigation into nursing facilities for discharge. TIME SPENT: Approximately 40 minutes was spent on this admission, approximately half of this time was spent at the bedside evaluating the patient and discussing the plan of care. This case has been reviewed by attending, Dr. Lidia Warren, and she agrees with this plan of care. NIKIA WEEKS [id number]/[facility] #: [id number]
[2019-02-06] MEDS ORDERED: Ferrous Gluconate TAB* 324 MG TAB PO SCH (21:00)
[2019-02-06] MEDS: Ferrous Gluconate TAB* 324 MG TAB PO SCH (21:12)
[2019-02-06] MEDS: Labetalol TAB* 200 MG PO SCH (21:12)
[2019-02-07 06:46] LABS: INR 2.48 (0.82-1.09)
[2019-02-07] MEDS: Famotidine TAB* 20 MG PO SCH (07:50)
[2019-02-07] MEDS: Allopurinol TAB* 100 MG PO SCH (07:51)
[2019-02-07] MEDS: Ferrous Gluconate TAB* 324 MG TAB PO SCH ×3 (07:51→20:45)
[2019-02-07] MEDS: Labetalol TAB* 200 MG PO SCH ×2 (07:52→20:45)
[2019-02-07] MEDS: Furosemide TAB* 20 MG PO SCH (07:52)
[2019-02-07] MEDS: Insulin LISPRO* 1 UNITS UNIT SUBCUT SCH (07:58)
[2019-02-07] MEDS ORDERED: Chlorthalidone TAB* 50 MG PO SCH (09:00)
[2019-02-07] MEDS: Warfarin TAB(*) 2.5 MG PO SCH (17:40)
[2019-02-07] MEDS ORDERED: cefTRIAXone(*) 2 GM in NS 0.9% 100 ML* 100 ML IVPB SCH (18:30)
[2019-02-08 06:30] LABS: INR 2.07 (0.82-1.09)
[2019-02-08] MEDS: Furosemide TAB* 20 MG PO SCH (08:06)
[2019-02-08] MEDS: Famotidine TAB* 20 MG PO SCH (08:06)
[2019-02-08] MEDS: Labetalol TAB* 200 MG PO SCH (08:06)
[2019-02-08] MEDS: Ferrous Gluconate TAB* 324 MG TAB PO SCH ×2 (08:06→13:19)
[2019-02-08] MEDS: Allopurinol TAB* 100 MG PO SCH (08:06)
[2019-02-08] MEDS: Insulin LISPRO* 1 UNITS UNIT SUBCUT SCH (08:07)
[2019-02-08] MEDS ORDERED: Chlorthalidone TAB* 50 MG PO SCH (09:00)
[2019-02-08 11:30] VITALS: BP 114/62
--- NOTE | 2019-02-08 23:55 | DS ---
DISCHARGE SUMMARY: DATE OF ADMISSION: 02/06/19 DATE OF DISCHARGE: 02/08/19 ATTENDING PHYSICIAN: Dr. Mayelin Andersen* (dictated by NIKIA Weeks). PRIMARY DIAGNOSIS: [facility] admission due to PICC occlusion at home. SECONDARY DIAGNOSES: 1. Anemia of chronic disease. 2. Diabetes mellitus, type 2. 3. Diabetic neuropathy. 4. Bilateral Charcot foot. 5. Chronic kidney disease. 6. History of deep venous thrombosis/pulmonary embolism, on Coumadin. 7. Protein S deficiency. 8. Gout. 9. Hyperlipidemia. 10. Hypertension. 11. Osteoarthritis. 12. Diabetic wound requiring IV antibiotics due to positive culture for Streptococcus pyogenes. HISTORY OF PRESENT ILLNESS/HOSPITAL COURSE: Ms. Lillian Forbes was admitted to the hospital on 02/06/19 after recent discharge on 02/05/19 and had been in the emergency department several times, seen at that time due to multiple issues at home. The patient initially refused discharge to a nursing facility and was hoping to do IV ceftriaxone infusions at home. She presented due to an occlusion of her PICC line and felt it would be better for her to go a nursing facility for further care. She overall had an unremarkable hospital stay. Her normal home medications were continued. She was revisited by the PICC nurse on 02/06/19, who replaced her PICC and demonstrated patency. On the date of discharge, the patient was notified that her first choice for a nursing facility was not covered by her insurance and she decided she did not want to go to any of the other nursing facilities and requested to go home. She already has several days' worth of ceftriaxone at home and there were no logistical issues with her getting infusions at home to this point, so she was safe for discharge. DISCHARGE PLAN: The patient already has previously scheduled Orthopedics appointment based on her previous admission with the discharge date of . The patient will continue nonweightbearing status to her right lower limb. She was advised to report to the emergency department if she experiences any fever or chills, drainage from her wound, streaking of her right lower extremity. She already has home infusion setup from her previous hospitalization and she already received counseling on this. DISCHARGE MEDICATIONS: 1. Ferrous sulfate 325 mg p.o. t.i.d. 2. Chlorthalidone 25 mg p.o. daily. 3. Ceftriaxone 2 g IV daily. 4. Allopurinol 100 mg p.o. daily. 5. Warfarin 2.5 mg p.o. daily. 6. Semaglutide 1 injection weekly. 7. Labetalol 200 mg p.o. b.i.d. 8. Heparin PICC flush daily. 9. Lasix 20 mg p.o. daily. 10. Famotidine 20 mg p.o. daily. 11. Colchicine 0.6 mg p.o. daily p.r.n. gout flare. 12. Cholecalciferol 50,000 units p.o. weekly. 13. Tylenol 650 mg p.o. q.4 hours p.r.n. pain. CONDITION ON DISCHARGE: Stable. DISPOSITION: Home. TIME SPENT: Approximately 35 minutes was spent on this discharge, approximately half of this time was spent reviewing the plan of care. NIKIA WEEKS [id number]/[facility] #: [id number] [facility]ice
== END 2019-02-08 17:00 | disposition home health service (06) | DRG 206 ==
LOC: ED 12:03 → MED 15:38 → OBSVTOIN 02-07 11:00
PROVIDERS: ADMIT Internal Medicine; ATTEND Internal Medicine
DX: T82.594A Other mechanical complication of infusion catheter, initial encounter (principal); Y82.8 Other medical devices associated with adverse incidents; D63.1 Anemia in chronic kidney disease; E11.22 Type 2 diabetes mellitus with diabetic chronic kidney disease; E11.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 with diabetic neuropathic arthropathy; N18.9 Chronic kidney disease, unspecified; M10.9 Gout, unspecified; E78.5 Hyperlipidemia, unspecified; I12.9 Hypertensive chronic kidney disease with stage 1 through stage 4 chronic kidney disease, or unspecified chronic kidney disease; M19.90 Unspecified osteoarthritis, unspecified site; Y92.009 Unspecified place in unspecified non-institutional (private) residence as the place of occurrence of the external cause; Z79.899 Other long term (current) drug therapy; Z79.01 Long term (current) use of anticoagulants; Z86.718 Personal history of other venous thrombosis and embolism; Z86.711 Personal history of pulmonary embolism; Z79.84 Long term (current) use of oral hypoglycemic drugs; Z87.891 Personal history of nicotine dependence
CPT/HCPCS: 36415; 71045; 80053; 85025; 85610; 87493; 96374; 99284; A9270-GY; C1751; J0696; J2997

== ENCOUNTER 2020-11-27 10:13 | Inpatient (IN) ==
[2020-11-27] MEDS ORDERED: Clindamycin 600 MG/D5W BAG IV ONE (10:15)
[2020-11-27] MEDS ORDERED: Lidocaine 1% VIAL 10 MG/ML VIAL ONE (11:48)
[2020-11-27] MEDS ORDERED: Heparin 2 UNITS/ML IVPREMIX 1,000 UNIT/500 ML BAG IV ONE (11:49)
[2020-11-27] MEDS ORDERED: Piperacillin/Tazobac ADVAN 3.375 GM in NS 0.9% 100 ml BAG 100 ML IV ONE (13:30)
[2020-11-27] MEDS ORDERED: Dextrose 50% Syringe 50 ml 25 GM/50 ML SYRINGE IV PUSH PRN (13:33)
[2020-11-27] MEDS ORDERED: Zosyn per Pharmacy NOTE FOLLOW UP SCH (14:00)
[2020-11-27] MEDS ORDERED: Heparin 1,000 UNIT/ML 10 ml (10,000 UNITS) CATHLAB/DIALYSIS DIALYSIS ONE ×2 (14:26→15:32)
[2020-11-27] MEDS ORDERED: Morphine 2 MG/ML SYRINGE IV PRN (14:48)
[2020-11-27 18:44] LABS: Rapid COVID-19 Molecular Undetected (Undetected)
[2020-11-27] MEDS: Sodium Bicarb 650 mg (ANTACID) TAB PO SCH (21:05)
[2020-11-27] MEDS: ZOSYN 3.375 GM Q12H per EXTENDED INFUSION IV SCH (21:06)
[2020-11-28 05:41] LABS: ABS Basophils 0.1 10^3/ul (0-0.2); ABS Eosinophils 0.2 10^3/ul (0-0.6); ABS Lymphocytes 1.3 10^3/ul (1.0-4.8); ABS Monocytes 0.8 10^3/ul (0-0.8); ABS Neutrophils 6.6 10^3/ul (1.5-7.7); Hematocrit 24 % (35-47); Hemoglobin 7.2 g/dL (12.0-16.0); Lymphocyte % 14.8 %; Mean Corpuscular HGB Conc 30 g/dL (31-36); Mean Corpuscular Hemoglobin 25 pg (27-31); Mean Corpuscular Volume 82 fL (80-97); Mean Platelet Volume 6.9 fL (7.4-10.4); Nucleated Red Blood Cells % 0.1; Platelet Count 367 10^3/uL (150-450); Red Blood Count 2.92 10^6 /uL (3.70-4.87); Red Cell Distribution Width 17 % (10-15)
[2020-11-28 06:06] LABS: Calcium 9.2 mg/dL (8.6-10.3); Potassium 4.4 mmol/L (3.5-5.0)
[2020-11-28] MEDS ORDERED: Heparin *DIALYSIS* ONLY 1,000 UNITS/ML VIAL DIALYSIS ONE (08:00)
[2020-11-28] MEDS ORDERED: Heparin 1,000 UNIT/ML 10 ml (10,000 UNITS) CATHLAB/DIALYSIS DIALYSIS ONE (09:00)
[2020-11-28] MEDS ORDERED: Heparin 1,000 UNIT/ML 10 ml (10,000 UNITS) CATHLAB/DIALYSIS DIALYSIS SCH (09:00)
[2020-11-28 10:01] LABS: C Reactive Protein 67.17 mg/L (<8.01)
[2020-11-28] MEDS: Sodium Bicarb 650 mg (ANTACID) TAB PO SCH ×2 (10:50→22:13)
[2020-11-28] MEDS: FEBUXOSTAT 40 MG PO SCH (10:51)
[2020-11-28] MEDS: ZOSYN 3.375 GM Q12H per EXTENDED INFUSION IV SCH ×2 (11:00→22:13)
[2020-11-29 05:32] LABS: ABS Basophils 0.1 10^3/ul (0-0.2); ABS Eosinophils 0.3 10^3/ul (0-0.6); ABS Lymphocytes 1.9 10^3/ul (1.0-4.8); ABS Monocytes 0.9 10^3/ul (0-0.8); ABS Neutrophils 7.9 10^3/ul (1.5-7.7); Eosinophil % 2.3 %; Hematocrit 23 % (35-47); Hemoglobin 7.2 g/dL (12.0-16.0); Mean Corpuscular HGB Conc 31 g/dL (31-36); Mean Corpuscular Hemoglobin 24 pg (27-31); Mean Corpuscular Volume 78 fL (80-97); Mean Platelet Volume 6.7 fL (7.4-10.4); Nucleated Red Blood Cells % 0.1; Platelet Count 420 10^3/uL (150-450); Red Blood Count 3.01 10^6 /uL (3.70-4.87); Red Cell Distribution Width 17 % (10-15)
[2020-11-29] MEDS ORDERED: Heparin 1,000 UNIT/ML 10 ml (10,000 UNITS) CATHLAB/DIALYSIS DIALYSIS SCH (07:00)
[2020-11-29] MEDS ORDERED: Heparin 1,000 UNIT/ML 10 ml (10,000 UNITS) CATHLAB/DIALYSIS DIALYSIS ONE (07:00)
[2020-11-29] MEDS ORDERED: Heparin *DIALYSIS* ONLY 1,000 UNITS/ML VIAL DIALYSIS ONE (08:00)
[2020-11-29] MEDS: ZOSYN 3.375 GM Q12H per EXTENDED INFUSION IV SCH (11:12)
[2020-11-29] MEDS: Sodium Bicarb 650 mg (ANTACID) TAB PO SCH (11:12)
[2020-11-29] MEDS: FEBUXOSTAT 40 MG PO SCH (11:15)
[2020-11-29 14:02] VITALS: BP 117/65
== END 2020-11-29 15:30 | disposition home or self-care (01) | DRG 919 ==
LOC: CHICATH 10:13 → MEDTELE 10:13 → SUATTDRO 13:27 → OBSVTOIN 13:27
PROVIDERS: ADMIT Internal Medicine; ATTEND Internal Medicine

== ENCOUNTER 2020-12-12 13:02 | Observation (INO) ==
[~2020-12-12 13:02] MED LIST changes: -Acetaminophen TAB* 325 MG PO PRN; -Buffered Lidocaine 0.9% SYRIN* 5 ML/SYR SYRINGE INTRADERM ONE; +Buffered Lidocaine 1% SYRIN 1 ml INTRADERM ONE; +NS 0.9% 1000 ml BAG 1,000 ML IV SCH
[2020-12-12] MEDS ORDERED: Vancomycin 1,000 MG - ONCE IVPB ONE (14:30)
[2020-12-12] MEDS ORDERED: Dexamethasone IV 4 MG/ML VIAL 1 ml VIAL ONE (14:39)
[2020-12-12] MEDS ORDERED: Etomidate 20 mg/10 ml 2 MG/ML 10 ml VIAL ONE (14:39)
[2020-12-12] MEDS ORDERED: Midazolam 2 mg/2 ml VIAL 1 mg/ml 2 ml VIAL (2 mg) ONE (14:39)
[2020-12-12] MEDS ORDERED: fentaNYL 100 mcg/2 ml 50 MCG/ML VIAL ONE (14:39)
[2020-12-12] MEDS ORDERED: Lidocaine 2% PF 5 ML VIAL ONE (14:39)
[2020-12-12] MEDS ORDERED: Propofol 10 MG/ML 20 ML BTL ONE (14:39)
[2020-12-12] MEDS ORDERED: Ondansetron 4 mg VIAL 2 MG/ML 2 ml VIAL ONE (14:39)
[2020-12-12] MEDS ORDERED: Albumin Human 5% 12.5 GM/250 ML BTL IV ONE (15:01)
[2020-12-12] MEDS ORDERED: Heparin *DIALYSIS* ONLY 1,000 UNITS/ML VIAL ONE ×2 (15:20→15:22)
[2020-12-12] MEDS ORDERED: Bupivacaine 0.25% SDV 30 ML ONE ×2 (15:20→16:41)
[2020-12-12 15:31] LABS: ABS Basophils 0.1 10^3/ul (0-0.2); ABS Lymphocytes 0.8 10^3/ul (1.0-4.8); ABS Monocytes 0.4 10^3/ul (0-0.8); Eosinophil % 0.1 %; Hematocrit 24 % (35-47); Hemoglobin 7.3 g/dL (12.0-16.0); Lymphocyte % 8.1 %; Mean Corpuscular HGB Conc 31 g/dL (31-36); Mean Corpuscular Hemoglobin 24 pg (27-31); Mean Corpuscular Volume 77 fL (80-97); Mean Platelet Volume 7.3 fL (7.4-10.4); Platelet Count 357 10^3/uL (150-450); Red Blood Count 3.04 10^6 /uL (3.70-4.87); Red Cell Distribution Width 17 % (10-15); White Blood Count 10.3 10^3/uL (3.5-10.8)
[2020-12-12 15:56] LABS: Calcium 9.1 mg/dL (8.6-10.3); Potassium 3.6 mmol/L (3.5-5.0)
[2020-12-12] MEDS ORDERED: Cisatracurium 2 MG/ML MDV 5 ML ONE ×2 (16:15→16:57)
[2020-12-12] MEDS ORDERED: Neostigmine Methylsulfate 3 MG/3 ML SYRINGE ONE (17:11)
[2020-12-12] MEDS ORDERED: Glycopyrrolate IV 0.2 MG/ML 1 ML VIAL ONE (17:11)
[2020-12-12] MEDS ORDERED: Ondansetron 4 mg VIAL 2 MG/ML 2 ml VIAL IV PRN (17:52)
[2020-12-12] MEDS ORDERED: Acetaminophen IV 1 GM/100ML 0 ML IV ONE (17:58)
[2020-12-12] MEDS: Sodium Bicarb 650 mg (ANTACID) TAB PO SCH (22:06)
[2020-12-12] MEDS ORDERED: Dextrose 50% Syringe 50 ml 25 GM/50 ML SYRINGE IV PUSH PRN (23:49)
[2020-12-13] MEDS: Benzocaine/Menthol LOZ MT PRN ×2 (01:33→08:08)
[2020-12-13 07:56] VITALS: BP 97/50
[2020-12-13] MEDS: Sodium Bicarb 650 mg (ANTACID) TAB PO SCH (08:08)
[2020-12-13] MEDS ORDERED: Cholecalciferol (VIT D3) 1,000 unit TAB PO SCH (09:00)
[2020-12-13] MEDS ORDERED: CMCS: Febuxostat 40 mg TAB (NF) PO SCH (09:00)
== END 2020-12-13 11:25 | disposition home or self-care (01) ==
LOC: MEDTELE 13:02 → OR 13:02
PROVIDERS: ADMIT Surgery; ATTEND Surgery

== ENCOUNTER 2021-12-20 13:13 | Inpatient (IN) ==
[2021-12-20 14:57] LABS: ABS Eosinophils 0.1 10^3/ul (0-0.6); ABS Lymphocytes 1.3 10^3/ul (1.0-4.8); ABS Monocytes 0.9 10^3/ul (0-0.8); ABS Neutrophils 7.3 10^3/ul (1.5-7.7); Eosinophil % 1.3 %; Hematocrit 32 % (35-47); Hemoglobin 10.2 g/dL (12.0-16.0); Lymphocyte % 13.7 %; Mean Corpuscular HGB Conc 32 g/dL (31-36); Mean Corpuscular Hemoglobin 28 pg (27-31); Mean Corpuscular Volume 87 fL (80-97); Mean Platelet Volume 7.7 fL (7.4-10.4); Platelet Count 194 10^3/uL (150-450); Red Cell Distribution Width 14 % (10-15); White Blood Count 9.7 10^3/uL (3.5-10.8)
[2021-12-20 15:30] LABS: Albumin 2.9 g/dL (3.2-5.2); Albumin/Globulin Ratio 1.1 (1-3); Calcium 9.4 mg/dL (8.6-10.3); Globulin 2.6 g/dL (2-4); Potassium 4.7 mmol/L (3.5-5.0); Total Bilirubin 0.4 mg/dL (0.2-1.0); Total Protein 5.5 g/dL (6.4-8.9)
[2021-12-20] MEDS ORDERED: Ondansetron 4 mg VIAL 2 MG/ML 2 ml VIAL IV PRN (18:37)
[2021-12-20] MEDS ORDERED: Heparin 5000 UNITS/ML 1 mL VIAL IV SCH (20:00)
[2021-12-20 22:44] LABS: ABS Eosinophils 0.1 10^3/ul (0-0.6); ABS Lymphocytes 1.6 10^3/ul (1.0-4.8); ABS Monocytes 1.1 10^3/ul (0-0.8); Eosinophil % 1.1 %; Hematocrit 31 % (35-47); Hemoglobin 9.9 g/dL (12.0-16.0); Lymphocyte % 14.7 %; Mean Corpuscular HGB Conc 32 g/dL (31-36); Mean Corpuscular Hemoglobin 28 pg (27-31); Mean Corpuscular Volume 87 fL (80-97); Mean Platelet Volume 7.9 fL (7.4-10.4); Platelet Count 199 10^3/uL (150-450); Red Blood Count 3.55 10^6 /uL (3.70-4.87); Red Cell Distribution Width 14 % (10-15); White Blood Count 10.9 10^3/uL (3.5-10.8)
[2021-12-20] MEDS: Sodium Bicarb 650 mg (ANTACID) TAB PO SCH (23:10)
[2021-12-20 23:25] LABS: eGFR CKD-EPI 10.6 (>60)
[2021-12-20] MEDS: Heparin DRIP 25,000 UNITS BAG 25,000 UNITS/500 ML BAG IV SCH (23:50)
[2021-12-21 05:24] LABS: ABS Eosinophils 0.2 10^3/ul (0-0.6); ABS Lymphocytes 1.6 10^3/ul (1.0-4.8); ABS Neutrophils 7.1 10^3/ul (1.5-7.7); Eosinophil % 1.5 %; Hematocrit 31 % (35-47); Hemoglobin 9.7 g/dL (12.0-16.0); Lymphocyte % 16.4 %; Mean Corpuscular HGB Conc 32 g/dL (31-36); Mean Corpuscular Hemoglobin 28 pg (27-31); Mean Corpuscular Volume 87 fL (80-97); Mean Platelet Volume 7.8 fL (7.4-10.4); Platelet Count 192 10^3/uL (150-450); Red Blood Count 3.54 10^6 /uL (3.70-4.87); Red Cell Distribution Width 14 % (10-15); White Blood Count 9.9 10^3/uL (3.5-10.8)
[2021-12-21 05:39] LABS: Activated Partial Thrombo Time 86.6 seconds (26.0-38.0)
[2021-12-21 05:49] LABS: INR 1.16 (0.89-1.11)
[2021-12-21 05:56] LABS: Potassium 4.8 mmol/L (3.5-5.0)
[2021-12-21 06:07] LABS: Calcium 9.3 mg/dL (8.6-10.3); eGFR CKD-EPI 10.2 (>60)
[2021-12-21] MEDS: Sodium Bicarb 650 mg (ANTACID) TAB PO SCH ×2 (09:02→21:05)
[2021-12-21] MEDS: CMCS: Febuxostat 40 mg TAB (NF) PO SCH (09:03)
[2021-12-21] MEDS: Cholecalciferol (VIT D3) 1,000 unit TAB PO SCH (09:03)
[2021-12-21] MEDS ORDERED: Furosemide 100 mg/10 ml IV VIAL IV ONE (11:45)
[2021-12-21] MEDS ORDERED: Senna TAB 8.6 mg TAB PO PRN (11:46)
[2021-12-21] MEDS ORDERED: Magnesium Hydroxide LIQ 30 ML UDC PO PRN (11:46)
[2021-12-21] MEDS: Heparin DRIP 25,000 UNITS BAG 25,000 UNITS/500 ML BAG IV SCH (18:22)
[2021-12-22] MEDS ORDERED: Bupivacaine 0.25% w/EPI 10 ML SDV ONE (08:07)
[2021-12-22] MEDS ORDERED: Rocuronium 50 mg VIAL 10 mg/ml 5 ml VIAL (50 mg) ONE ×2 (08:20→10:25)
[2021-12-22] MEDS ORDERED: Dexamethasone IV 4 MG/ML VIAL 1 ml VIAL ONE (08:20)
[2021-12-22] MEDS ORDERED: Midazolam 2 mg/2 ml VIAL 1 mg/ml 2 ml VIAL (2 mg) ONE (08:20)
[2021-12-22] MEDS ORDERED: fentaNYL 100 mcg/2 ml 50 MCG/ML VIAL ONE (08:20)
[2021-12-22] MEDS ORDERED: Lidocaine 2% PF 5 ML VIAL ONE (08:20)
[2021-12-22] MEDS ORDERED: Propofol 10 MG/ML 20 ML BTL ONE (08:20)
[2021-12-22] MEDS ORDERED: Ondansetron 4 mg VIAL 2 MG/ML 2 ml VIAL ONE (08:20)
[2021-12-22] MEDS: Cholecalciferol (VIT D3) 1,000 unit TAB PO SCH (08:21)
[2021-12-22] MEDS: CMCS: Febuxostat 40 mg TAB (NF) PO SCH (08:21)
[2021-12-22] MEDS: Polyethylene Glycol 3350 17 GM PACKET PO SCH (08:21)
[2021-12-22] MEDS: Sodium Bicarb 650 mg (ANTACID) TAB PO SCH ×2 (08:22→22:04)
[2021-12-22] MEDS ORDERED: ceFAZolin 2 GM in NS PREMIX 2 GM/100 ML BAG IVPB ONE (09:24)
[2021-12-22] MEDS ORDERED: Heparin *DIALYSIS* ONLY 1,000 UNITS/ML VIAL ONE (09:29)
[2021-12-22 10:36] LABS: ABS Eosinophils 0.2 10^3/ul (0-0.6); ABS Lymphocytes 1.1 10^3/ul (1.0-4.8); ABS Monocytes 0.6 10^3/ul (0-0.8); ABS Neutrophils 5.7 10^3/ul (1.5-7.7); Eosinophil % 2.7 %; Hematocrit 29 % (35-47); Hemoglobin 9.3 g/dL (12.0-16.0); Lymphocyte % 13.9 %; Mean Corpuscular HGB Conc 32 g/dL (31-36); Mean Corpuscular Hemoglobin 28 pg (27-31); Mean Corpuscular Volume 87 fL (80-97); Mean Platelet Volume 8.2 fL (7.4-10.4); Nucleated Red Blood Cells % 0.1; Platelet Count 191 10^3/uL (150-450); Red Blood Count 3.34 10^6 /uL (3.70-4.87); Red Cell Distribution Width 14 % (10-15); White Blood Count 7.6 10^3/uL (3.5-10.8)
[2021-12-22] MEDS ORDERED: Vancomycin 1,000 MG VIAL ONE (10:37)
[2021-12-22] MEDS ORDERED: Acetaminophen IV 1 GM/100ML 1,000 MG/100 ML BAG IV ONE (10:43)
[2021-12-22 10:45] LABS: Calcium 9.4 mg/dL (8.6-10.3); Potassium 4.6 mmol/L (3.5-5.0)
[2021-12-22] MEDS ORDERED: Sugammadex 500 MG/5 ML 5 ml VIAL IV PUSH ONE (10:55)
[2021-12-22] MEDS ORDERED: Levalbuterol 0.63MG/3ML NEB UNIT OF USE INH ONE (11:45)
[2021-12-22] MEDS ORDERED: Vancomycin 1,750 MG in NS 0.9% 500 ml BAG 500 ML IVPB ONE (12:00)
[2021-12-23 06:03] LABS: ABS Lymphocytes 0.7 10^3/ul (1.0-4.8); ABS Monocytes 0.4 10^3/ul (0-0.8); ABS Neutrophils 11.3 10^3/ul (1.5-7.7); Hematocrit 33 % (35-47); Hemoglobin 10.5 g/dL (12.0-16.0); Lymphocyte % 5.3 %; Mean Corpuscular HGB Conc 32 g/dL (31-36); Mean Corpuscular Hemoglobin 28 pg (27-31); Mean Corpuscular Volume 87 fL (80-97); Mean Platelet Volume 8.2 fL (7.4-10.4); Platelet Count 246 10^3/uL (150-450); Red Blood Count 3.83 10^6 /uL (3.70-4.87); Red Cell Distribution Width 14 % (10-15); White Blood Count 12.3 10^3/uL (3.5-10.8)
[2021-12-23 06:22] LABS: Calcium 9.3 mg/dL (8.6-10.3); Magnesium 2.5 mg/dL (1.9-2.7); eGFR CKD-EPI 8.8 (>60)
[2021-12-23 06:34] LABS: Potassium 5.4 mmol/L (3.5-5.0)
[2021-12-23] MEDS: CMCS: Febuxostat 40 mg TAB (NF) PO SCH (08:21)
[2021-12-23] MEDS: Cholecalciferol (VIT D3) 1,000 unit TAB PO SCH (08:21)
[2021-12-23] MEDS: Polyethylene Glycol 3350 17 GM PACKET PO SCH (08:21)
[2021-12-23] MEDS: Sodium Bicarb 650 mg (ANTACID) TAB PO SCH (08:22)
[2021-12-23] MEDS ORDERED: Dextrose 50% Syringe 50 ml 25 GM/50 ML SYRINGE IV PUSH PRN (09:18)
[2021-12-23] MEDS ORDERED: Cefepime 2 GM in Dextrose 2 GM/50 ML BAG IV SCH (14:00)
[2021-12-23 16:46] VITALS: BP 123/76
== END 2021-12-23 17:20 | disposition home or self-care (01) | DRG 907 ==
LOC: ED 13:13 → SUATTDRO 18:38 → EDHOLD 18:38 → SSU 21:27
PROVIDERS: ADMIT Student in an Organized Health Care Education/Training Program; ATTEND Internal Medicine

== ENCOUNTER 2022-06-03 12:10 | Observation (INO) ==
[~2022-06-03 12:10] MED LIST changes: -Buffered Lidocaine 1% SYRIN 1 ml INTRADERM ONE; +Clindamycin 600 MG/NS BAG IV ONE; -NS 0.9% 1000 ml BAG 1,000 ML IV SCH
[2022-06-03 13:53] LABS: Activated Partial Thrombo Time 31.5 seconds (26.0-38.0); INR 1.15 (0.88-1.18)
[2022-06-03] MEDS ORDERED: Lidocaine 1% VIAL 10 MG/ML VIAL 30 ML ONE (13:54)
[2022-06-03] MEDS ORDERED: Heparin 2 UNITS/ML IVPREMIX 2,000 UNIT/1,000 ML BAG IV ONE (13:55)
[2022-06-03] MEDS ORDERED: Iohexol 350 (CONTRAST) 100 ML PAK IV ONE (13:55)
[2022-06-03] MEDS ORDERED: Midazolam 5 mg/5 ml VIAL 1 mg/ml 5 ml VIAL (5 mg) ONE ×2 (13:56→16:05)
[2022-06-03] MEDS ORDERED: fentaNYL 100 mcg/2 ml 50 MCG/ML VIAL ONE ×5 (13:56→15:41)
[2022-06-03] MEDS ORDERED: Alteplase 10 mg/10 mL (for intra-op IR use only, onetime) ONE (14:00)
[2022-06-03] MEDS ORDERED: nitroGLYCERIN DRIP 25,000 MCG/250 ML BTL ONE (15:59)
[2022-06-03 16:11] LABS: ABS Basophils 0.1 10^3/uL (0.0-0.1); ABS Eosinophils 0.3 10^3/uL (0.0-0.5); ABS Lymphocytes 1.9 10^3/uL (1.0-4.8); ABS Monocytes 0.6 10^3/uL (0.0-0.9); Eosinophil % 2.2 %; Hematocrit 25.6 % (35-45); Hemoglobin 8.1 g/dL (11.5-14.3); Lymphocyte % 15.9 %; Mean Corpuscular Hemoglobin 27.5 pg (27-33); Mean Corpuscular Hgb Conc 31.8 g/dL (31-36); Mean Corpuscular Volume 86.4 fL (80-97); Platelet Count 165 10^3/uL (150-450); Red Blood Count 2.96 10^6/uL (3.63-4.92); Red Cell Distribution Width 15.7 % (12-17); White Blood Count 11.8 10^3/uL (3.8-11.8)
[2022-06-03] MEDS ORDERED: Heparin 2 UNITS/ML IVPREMIX 1,000 UNIT/500 ML BAG IV ONE (16:14)
[2022-06-03] MEDS ORDERED: Heparin 1,000 UNIT/ML 10 ml (10,000 UNITS) CATHLAB/DIALYSIS ONE (16:19)
[2022-06-03] MEDS ORDERED: Polyethylene Glycol 3350 17 GM PACKET PO PRN (17:12)
[2022-06-03] MEDS: Morphine 2 MG/ML SYRINGE IV PRN ×2 (17:28→23:21)
[2022-06-03 17:32] LABS: Magnesium 2.8 mg/dL (1.9-2.7); Potassium 3.9 mmol/L (3.5-5.0)
[2022-06-03 17:37] LABS: Creatinine, Serum 5.84 mg/dL (0.51-0.95); eGFR CKD-EPI 7.6 (>60)
[2022-06-03] MEDS ORDERED: Dextrose 50% Syringe 50 ml 25 GM/50 ML SYRINGE IV PUSH PRN (18:23)
[2022-06-04] MEDS: CMC:Febuxostat 40 mg TAB (NF) PO SCH ×2 (08:25→09:00)
[2022-06-04 10:22] VITALS: BP 141/57
== END 2022-06-04 10:25 | disposition home or self-care (01) ==
LOC: CHICATH 12:10 → MEDTELE 12:10
PROVIDERS: ADMIT Internal Medicine; ATTEND Internal Medicine
PROC: ANG.PRO (2022-06-03 13:10)